=== PATIENT | female | born 1950 | race Caucasian/White ===

== ENCOUNTER 2017-07-10 16:12 | Emergency (ER) | payer OTHER ==
[~2017-07-10] VITALS: Ht 165.1 cm; Wt 80.3 kg
[~2017-07-10 16:12] MED LIST: ASPIR-LOW81 MG PO; CAL MAG ZINC +1 EACH PO; CRESTOR10 MG PO; FISH OIL300 MG PO; GABAPENTIN300 MG PO; GLIPIZIDE10 MG PO; GLUCOPHAGE500 MG PO; LOSARTAN POTASS25 MG PO; METOPROLOL SUCC25 MG PO; ONGLYZA5 MG PO; PROVENTIL HFA6.7 GM INH; REQUIP2 MG PO; TESSALON PERLE100 MG PO; TRAZODONE HCL100 MG PO; VITAFOL-OB+DHA1 EACH PO
[2017-07-10] MEDS ORDERED: NEURONTIN800 MG PO (19:23)
[2017-07-10] MEDS ORDERED: METFORMIN HCL500 M2 PO (19:24)
[2017-07-10] MEDS ORDERED: VICTOZA 2-0.6 MG/0.1 SUB-Q (19:25)
[2017-07-10] MEDS ORDERED: NORCO 5-325 TA1 EACH PO (21:35)
[2017-07-10] MEDS ORDERED: CRUTCH1 EACH MISC (21:36)
== END 2017-07-10 21:48 | disposition home or self-care (01) ==
LOC: ED 16:12
DX: S70.01XA Contusion of right hip, initial encounter (principal); E11.9 Type 2 diabetes mellitus without complications; F17.200 Nicotine dependence, unspecified, uncomplicated; Z88.2 Allergy status to sulfonamides; Z88.1 Allergy status to other antibiotic agents; Z79.84 Long term (current) use of oral hypoglycemic drugs; Z79.82 Long term (current) use of aspirin; Z79.899 Other long term (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; W01.10XA Fall on same level from slipping, tripping and stumbling with subsequent striking against unspecified object, initial encounter
CPT/HCPCS: 73502; 99283

== ENCOUNTER 2017-09-18 07:14 | Day surgery (SDC) | payer OTHER ==
[~2017-09-18] VITALS: Ht 167.6 cm; Wt 82.5 kg
[~2017-09-18 07:14] MED LIST changes: +CRUTCH1 EACH MISC; +METFORMIN HCL500 M2 PO; +NEURONTIN800 MG PO; +NORCO 5-325 TA1 EACH PO; +VICTOZA 2-0.6 MG/0.1 SUB-Q
[2017-09-18] MEDS ORDERED: LOSARTAN-HCTZ1 EAC1 (07:37)
[2017-09-18] MEDS ORDERED: DICLOFENAC SODI25 MG PO (07:38)
[2017-09-18] MEDS ORDERED: MSM-GLUCOSAMIN1 EACH PO (07:38)
[2017-09-18] MEDS ORDERED: VITAMIN B122500 MCG PO (07:39)
[2017-09-18] MEDS ORDERED: OMEPRAZOLE20 MG PO (07:40)
[2017-09-18] MEDS ORDERED: PROAIR HFA8.5 GM INH (07:40)
--- NOTE | 2017-09-18 08:55 | NUR ---
09/18/17 0855 Carolyn Issa 0842 PT ARRIVED TO PACU ON 3L NC. RESP EVEN AND UNLABORED. PT MAINTAINING AIRWAY. CBG 200. 0851 PT PASSING GAS AND SLEEPING. PT OPENS HER EYES TO STIMULI THEN RIGHT BACK TO SLEEP. 0854 O2 REMOVED O2 SAT 99%. PT REORIENTED TO PACU. PT BACK TO SLEEP.
--- NOTE | 2017-09-18 09:33 | NUR ---
ICED WATER, PUDDING, CRACKERS AND JELLO GIVEN. CALL LIGHT W/IN REACH.
--- NOTE | 2017-09-18 12:37 | NUR ---
LE 1130: PT UP TO BR AND AMBULATES WELL. PT REQ LUNCH. LUNCH ORDERED FROM DIETARY. PT DRESSES SELF AND TOLERATES THAT WELL. PT AWAITING HER RIDE'S ARRIVAL.
--- NOTE | 2017-09-18 12:38 | NUR ---
PT TRANSFERS SELF TO AND TO PERSONAL VEHICLE WELL AND IS DC.
--- NOTE | 2017-09-18 18:36 | OR ---
[facility] [address] [place], [place] [address] Signed DATE OF OPERATION: 09/18/2017 SURGEON: Riley Quiñonez MD PREOPERATIVE DIAGNOSIS: Guaiac-positive stool. POSTOPERATIVE DIAGNOSES: 1. Nkxyyanu-iw-rqboow saini diverticulosis. 2. Moderate internal and external hemorrhoids. PROCEDURE PERFORMED: Colonoscopy without biopsy. ESTIMATED BLOOD LOSS: None. INDICATIONS FOR PROCEDURE: Sharyn is a 66-year-old female, who had been placed on extended release metformin. She had diarrhea and fecal urgency and then some melena. She has been switched over to immediate release metformin and things have markedly improved. However, she remains guaiac positive. She has never had a previous colonoscopy. There is no family history of colon cancer or polyps. Her primary care provider asked her to see me with respect to the above. In the office, I gave Sharyn a pamphlet on colonoscopy. We looked at that together along with the risks including, but not limited to gas bloating, crampy abdominal pain, bleeding, perforation, requiring surgery, and missed diagnosis. We also discussed the need for IV conscious sedation. She had expressed understanding and wished to proceed. PROCEDURE NOTE: Sharyn was taken into our endoscopy suite and placed in the left lateral decubitus position. She was given divided doses of 5 mg of Versed and 150 mcg of fentanyl. A digital rectal exam was performed and she does have moderate circumferential external hemorrhoids. She had good sphincter tone. The adult colonoscope was then introduced and advanced all around into the cecum under direct visualization of camera. It took some extra sedation and abdominal compression in order to advance the scope, there is slight of build and her colon is small in diameter and she had ouhurytv-xx-biarsk saini diverticulosis. All this taken together, it took the extra sedation and abdominal compression. The cecum was easily visualized along with the ileocecal valve. The scope was then slowly withdrawn. We saw no other pathology in the colon or rectum. Upon Electronically Signed By: RILEY QUIÑONEZ MD 09/18/17 1836 PATIENT NAME: SHARYN HAND OPERATIVE REPORT DATE OF : 48 REPORT #: [id number] PHYSICIAN: RILEY QUIÑONEZ MD PCP: SHARYN SNYDER REPORT IS CONFIDENTIAL AND NOT TO BE RELEASED WITHOUT AUTHORIZATION [facility] [address] [place] [id number] Signed retroflexion of the scope, she has mvbynpw-rq-dhnwupdg internal hemorrhoids. After this, the gas was suctioned out, and the colonoscope removed. Sharyn tolerated the procedure quite well. RECOMMENDATIONS: Sharyn can follow up in 10 years for repeat colonoscopy, if her health holds up. If she continues to have guaiac-positive stool, she might consider an upper endoscopy as well. I am more than happy to help her in that regard. MD TYSON Ford/KASSYL /[id number] cc: Sharyn Snyder Copies: SHARYN SNYDER ~ Electronically Signed By: RILEY QUIÑONEZ MD 09/18/17 1836 PATIENT NAME: SHARYN HAND OPERATIVE REPORT DATE OF : 48 REPORT #: [id number] PHYSICIAN: RILEY QUIÑONEZ MD PCP: SHARYN SNYDER REPORT IS CONFIDENTIAL AND NOT TO BE RELEASED WITHOUT AUTHORIZATION
== END 2017-09-18 12:35 | disposition home or self-care (01) ==
LOC: DS 07:14 → OPS 07:14 → DS 08:15 → OPS 12:35
PROVIDERS: Colon & Rectal Surgery
PROC: 0DJD8ZZ Inspection of Lower Intestinal Tract, Via Natural or Artificial Opening Endoscopic (ICD-10-PCS; principal; 2017-09-18 08:15)
DX: K64.8 Other hemorrhoids (principal); K64.4 Residual hemorrhoidal skin tags; K57.30 Diverticulosis of large intestine without perforation or abscess without bleeding; I10 Essential (primary) hypertension; J44.9 Chronic obstructive pulmonary disease, unspecified; E78.5 Hyperlipidemia, unspecified; E66.9 Obesity, unspecified; F32.9 Major depressive disorder, single episode, unspecified; M19.90 Unspecified osteoarthritis, unspecified site; E11.40 Type 2 diabetes mellitus with diabetic neuropathy, unspecified; F17.210 Nicotine dependence, cigarettes, uncomplicated; Z88.2 Allergy status to sulfonamides; Z88.1 Allergy status to other antibiotic agents; Z79.82 Long term (current) use of aspirin; Z79.84 Long term (current) use of oral hypoglycemic drugs; Z79.899 Other long term (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; Z79.1 Long term (current) use of non-steroidal anti-inflammatories (NSAID); Z68.29 Body mass index [BMI] 29.0-29.9, adult
CPT/HCPCS: 99153; G0500; J2250; J3010; J7120

== ENCOUNTER 2017-12-02 01:44 | Emergency (ER) | payer OTHER ==
[~2017-12-02] VITALS: Ht 167.6 cm; Wt 81.7 kg
[~2017-12-02 01:44] MED LIST changes: +DICLOFENAC SODI25 MG PO; +LOSARTAN-HCTZ1 EAC1; +MSM-GLUCOSAMIN1 EACH PO; +OMEPRAZOLE20 MG PO; +PROAIR HFA8.5 GM INH; +VITAMIN B122500 MCG PO
[2017-12-02] MEDS ORDERED: NORCO 5-325 TA1 EACH PO (02:35)
== END 2017-12-02 02:48 | disposition home or self-care (01) ==
LOC: ED 01:44
DX: S20.212A Contusion of left front wall of thorax, initial encounter (principal); W22.8XXA Striking against or struck by other objects, initial encounter; E11.9 Type 2 diabetes mellitus without complications; F17.200 Nicotine dependence, unspecified, uncomplicated; Z88.2 Allergy status to sulfonamides; Z88.1 Allergy status to other antibiotic agents; Z79.899 Other long term (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; Z79.82 Long term (current) use of aspirin; Z79.84 Long term (current) use of oral hypoglycemic drugs
CPT/HCPCS: 71101; 99283

== ENCOUNTER → 2018-05-25 | Emergency (ER) | payer OTHER ==
[~2018-05-25] VITALS: Ht 167.6 cm; Wt 83.1 kg
[~2018-05-25] MED LIST changes: +AMLODIPINE-OLM1 EAC1; +FUROSEMIDE20 MG PO; +HYDROCHLOROTHIA25 MG PO
--- NOTE | 2018-05-25 07:17 | EKG ---
[facility] [address] [facility] [place], [place] [address] Signed Normal sinus rhythm Rightward axis Possible Anterior infarct , age undetermined Abnormal ECG No previous ECGs available Confirmed by FLORI FLORES MD ([id number]) on 05/25/2018 7:17:26 AM Electronically Signed By: FLORI FLORES MD 05/25/18 0717 PATIENT NAME: SHARYN HAND Electrocardiogram DATE OF : 48 PHYSICIAN: FLORI FLORES MD REPORT #: [id number] REPORT IS CONFIDENTIAL AND NOT TO BE RELEASED WITHOUT AUTHORIZATION
== END | disposition home or self-care (01) ==
LOC: ED 02:54
DX: I50.9 Heart failure, unspecified (principal); J90 Pleural effusion, not elsewhere classified; E11.22 Type 2 diabetes mellitus with diabetic chronic kidney disease; N18.9 Chronic kidney disease, unspecified; F17.200 Nicotine dependence, unspecified, uncomplicated; Z88.2 Allergy status to sulfonamides; Z79.899 Other long term (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; Z79.82 Long term (current) use of aspirin
CPT/HCPCS: 71045; 80053; 81001; 83880; 84484; 85025; 93005; 93010; 96374; 99285-25

== ENCOUNTER 2018-06-22 18:18 | Emergency (ER) | payer OTHER ==
[~2018-06-22] VITALS: Ht 167.6 cm; Wt 83.1 kg
[~2018-06-22 18:18] MED LIST changes: -HYDROCHLOROTHIA25 MG PO
--- OUTSIDE RECORDS SUMMARY | 2018-06-22 18:20 | XMS ---
PreManage Notification: SHARYN HAND Security Pulmonology Technician Events No recent Security Events currently on file CRITERIA MET - [facility] - 2 Visits in 30 Days CARE PROVIDERS There are no care providers on record at this time. Godfrey has no Care Guidelines for this patient. Irina VISIT COUNT (12 MO.) [address] [facility] TOTAL 4 NOTE: Visits indicate total known visits. ED/C VISIT TRACKING (12 MO.) 06/22/2018 18:19 [facility] [place] TYPE: Emergency COMPLAINT: - DIZZINESS 05/25/2018 02:54 [facility] [place] TYPE: Emergency COMPLAINT: - CHEST CONGESTION/PAIN DIAGNOSES: - Chronic kidney disease, unspecified - petroleum terminal plant operator (current) use of aspirin - Type 2 diabetes mellitus with diabetic chronic kidney disease - Allergy status to sulfonamides status - Shortness of breath - Heart failure, unspecified - Other long term care pharmacist (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 - Nicotine dependence, unspecified, uncomplicated - Pleural effusion, not elsewhere classified 12/02/2017 01:44 [facility] [place] TYPE: Emergency COMPLAINT: - LT SIDE RIB PAIN DIAGNOSES: - Striking against or struck by other objects, initial encounter - Type 2 diabetes mellitus without complications - Other long term care pharmacist (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 - group home (current) use of aspirin - COMPUTER LAB PARA PROFESSIONAL (CURRENT) USE OF ORAL HYPOGLYCEMIC DRUGS - group home (current) use of oral hypoglycemic drugs - Pleurodynia - Allergy status to sulfonamides status - Nicotine dependence, unspecified, uncomplicated - Allergy status to other antibiotic agents status - Contusion of left front wall of thorax, initial encounter 07/10/2017 16:13 [facility] [place] TYPE: Emergency COMPLAINT: - R HIP PAIN/FALL DIAGNOSES: - Allergy status to sulfonamides status - Type 2 diabetes mellitus without complications - Allergy status to other antibiotic agents status - Fall on same level from slipping, tripping and stumbling with subsequent striking against unspecified object, initial encounter - group home (current) use of oral hypoglycemic drugs - petroleum terminal plant 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
[2018-06-22] MEDS ORDERED: HYDROCHLOROTHIA25 MG PO (18:46)
--- NOTE | 2018-06-23 07:46 | EKG ---
[facility] [address] [place] [address] Signed Sinus rhythm with premature atrial complexes Otherwise normal ECG When compared with ECG of 25-MAY-2018 03:01, premature atrial complexes are now present Confirmed by FLORI FLORES MD ([id number]) on 06/23/2018 7:46:06 AM Electronically Signed By: FLORI FLORES MD 06/23/18 0746 PATIENT NAME: DENNISE DAIGLESHARYN Electrocardiogram DATE OF : 48 PHYSICIAN: FLORI FLORES MD REPORT #: [id number] REPORT IS CONFIDENTIAL AND NOT TO BE RELEASED WITHOUT AUTHORIZATION
== END 2018-06-22 21:50 | disposition home or self-care (01) ==
LOC: ED 18:18
DX: R41.82 Altered mental status, unspecified (principal); E11.9 Type 2 diabetes mellitus without complications; F17.200 Nicotine dependence, unspecified, uncomplicated; Z88.2 Allergy status to sulfonamides; Z88.1 Allergy status to other antibiotic agents; Z79.899 Other long term (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; Z79.82 Long term (current) use of aspirin
CPT/HCPCS: 70450; 71045; 80053; 84484; 85025; 93005; 93010; 99285-25; J7030

== ENCOUNTER 2018-09-09 16:20 | Emergency (ER) | payer OTHER ==
[~2018-09-09] VITALS: Ht 167.6 cm; Wt 81.7 kg
--- OUTSIDE RECORDS SUMMARY | ~2018-09-09 | XMS | Clinical Summary ---
Demographics + + + | Address | [address] [facility] [address] | | | [place] [address] | + + + | Home Phone [...] + + + | Author | [facility] | | | and [place] | + + + | Organization | [facility] | | | and [place] | + + + | Address | Unknown | + + + | Phone | Unavailable | + + + Support + + +---------+ + | Name | Relationship | Address | Phone | + + +---------+ + | None,Provided | ECON | Unknown | | + + +---------+ + Care Team Providers + +------+ + | Care Manager Trade Marketing Name | Role | Phone | + +------+ + | Benny James MD | PP | | + +------+ + Allergies Not on File Medications Not on file Active Problems Not on file Social History + +-------+ +--------+------+ | Tobacco [...] recent travel history available. | + + Plan of Treatment + + + + + | Health Maintenance | Due Date | Last Done | Comments | + + + + + | Vaccine: | | | | | Dtap/Tdap/Td (1 - | 9 | | | | Tdap) | | | | + + + + + | Vaccine: Zoster (1 | | | | | of 2) | 0 | | | + + + + + | Vaccine: | | | | | Pneumococcal 65+ | 5 | | | | Low/Medium Risk (1 | | | | | of 2 - PCV13) | | | | + + + + + | Vaccine: Influenza | | | | | (Season Ended) | 9 | | | + + + + + Results Not on filefrom Last 3 Months Insurance + +--------+ +--------+-------+---------+--------+ | Payer | Benefi | Subscriber | Effect | Phone | Address | Type | | | t Plan | ID | ira | | | | | | / | | Dates | | | | | | Group | | | | | | + +--------+ +--------+-------+---------+--------+ | [employer] | [employer] | [id number] | | | | Indemn | | | NS | | 016-Pr | | | ity | | | CHOICE | | esent | | | | [...] | | [place] | | | 7 ([place]) | [phone] | + +--------+ +--------+ + +"
--- OUTSIDE RECORDS SUMMARY | ~2018-09-09 | XMS | Clinical Summary ---
Demographics + + + | Address | [address] [facility] [address] | | | [place] [address] | + + + | Home Phone [...] Team Providers + +------+ + | Care Bander And Cellophaner Helper Machine Name | Role | Phone | [...] +--------+-------+---------+--------+ | [employer] | [place] | [id number] | | | | Indemn | | [...] | | [place] | | | 7 ([place]) | [phone] | + +--------+ +--------+ + +"
[~2018-09-09 16:20] MED LIST changes: +HYDROCHLOROTHIA25 MG PO
[2018-09-09] MEDS ORDERED: CYCLOBENZAPRINE10 MG PO (16:36)
[2018-09-09] MEDS ORDERED: ZYRTEC10 MG PO (16:37)
[2018-09-09] MEDS ORDERED: LASIX20 MG PO (19:28)
--- NOTE | 2018-09-10 16:33 | EKG ---
[facility] [address] [facility] [place] [address] Signed Normal sinus rhythm Rightward axis Borderline ECG When compared with ECG of 22-JUN-2018 18:24, premature atrial complexes are no longer present Confirmed by TIRSO ROCK DO ([id number]) on 09/10/2018 4:33:28 PM Electronically Signed By: TIRSO ROCK DO 09/10/18 1633 PATIENT NAME: DENNISE DAIGLESHARYN Electrocardiogram DATE OF : 48 PHYSICIAN: TIRSO ROCK DO REPORT #: [id number] REPORT IS CONFIDENTIAL AND NOT TO BE RELEASED WITHOUT AUTHORIZATION
== END 2018-09-09 19:45 | disposition home or self-care (01) ==
LOC: ED 16:20
DX: I50.9 Heart failure, unspecified (principal); R06.00 Dyspnea, unspecified; E11.9 Type 2 diabetes mellitus without complications; F17.200 Nicotine dependence, unspecified, uncomplicated; Z88.2 Allergy status to sulfonamides; Z88.8 Allergy status to other drugs, medicaments and biological substances; Z88.1 Allergy status to other antibiotic agents; Z79.899 Other long term (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; Z79.82 Long term (current) use of aspirin
CPT/HCPCS: 71046; 80053; 83880; 84484; 85025; 93005; 93010; 96374; 99284-25; 99406

== ENCOUNTER 2019-06-30 16:00 | Emergency (ER) | payer OTHER ==
[~2019-06-30] VITALS: Ht 167.6 cm; Wt 81.7 kg
[~2019-06-30 16:00] MED LIST changes: +CYCLOBENZAPRINE10 MG PO; +LASIX20 MG PO; +ZYRTEC10 MG PO
[2019-06-30] MEDS ORDERED: KEFLEX500 MG PO (17:32)
[2019-06-30] MEDS ORDERED: PERCOCET 5-3251 EACH PO (17:32)
== END 2019-06-30 18:07 | disposition home or self-care (01) ==
LOC: ED 16:00
DX: S53.401A Unspecified sprain of right elbow, initial encounter (principal); M70.31 Other bursitis of elbow, right elbow; X58.XXXA Exposure to other specified factors, initial encounter; E11.9 Type 2 diabetes mellitus without complications; F17.200 Nicotine dependence, unspecified, uncomplicated; Z88.2 Allergy status to sulfonamides; Z88.1 Allergy status to other antibiotic agents; Z88.8 Allergy status to other drugs, medicaments and biological substances; Z79.899 Other long term (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; Z79.82 Long term (current) use of aspirin
CPT/HCPCS: 73080; 99283; A9270

== ENCOUNTER 2019-07-10 15:32 | Emergency (ER) | payer OTHER ==
[~2019-07-10] VITALS: Ht 167.6 cm; Wt 81.7 kg
[~2019-07-10 15:32] MED LIST changes: +KEFLEX500 MG PO; +PERCOCET 5-3251 EACH PO
--- OUTSIDE RECORDS SUMMARY | 2019-07-10 15:36 | XMS ---
PreManage Notification: SHARYN HAND Security Inbound Sales Manager Events No recent Security Events currently on file CRITERIA MET - [facility] - 2 Visits in 30 Days CARE PROVIDERS SNYDERSHARYN BUTLER ANN Nurse Practitioner: 06/23/2018-Current PHONE: [phone] Godfrey has no Care Guidelines for this patient. Irina VISIT COUNT (12 MO.) [address] [facility] TOTAL 3 NOTE: Visits indicate total known visits. ED/UCC VISIT TRACKING (12 MO.) 07/10/2019 15:33 [facility] [place] TYPE: Emergency COMPLAINT: - HURT BOTH FEET FALLING 06/30/2019 16:01 [facility] [place] TYPE: Emergency COMPLAINT: - RIGHT ELBOW PAIN DIAGNOSES: - Allergy status to oth drug/meds/biol subst status - Nicotine dependence, unspecified, uncomplicated - Pain in right elbow - Allergy status to sulfonamides status - Exposure to other specified factors, initial encounter - moth exterminator (current) use of aspirin - 1 Type 2 diabetes mellitus without complications - Allergy status to other antibiotic agents status - Other termite helper (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 - Other bursitis of elbow, right elbow - Unspecified sprain of right elbow, initial encounter 09/09/2018 16:21 [facility] [place] TYPE: Emergency COMPLAINT: - SOB DIAGNOSES: - Cough - Nicotine dependence, unspecified, uncomplicated - 1 Type 2 diabetes mellitus without complications - Allergy status to sulfonamides status - Allergy status to other antibiotic agents status - [facility] (current) use of aspirin - Heart failure, unspecified - Dyspnea, unspecified - Allergy status to oth drug/meds/biol subst status - Other termite helper (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 INPATIENT VISIT TRACKING (12 MO.) No inpatient visits to display in this time frame [email or web address]
== END 2019-07-10 17:19 | disposition home or self-care (01) ==
LOC: ED 15:32
DX: S93.602A Unspecified sprain of left foot, initial encounter (principal); S93.601A Unspecified sprain of right foot, initial encounter; S93.402A Sprain of unspecified ligament of left ankle, initial encounter; S93.401A Sprain of unspecified ligament of right ankle, initial encounter; E11.9 Type 2 diabetes mellitus without complications; I10 Essential (primary) hypertension; F17.200 Nicotine dependence, unspecified, uncomplicated; X58.XXXA Exposure to other specified factors, initial encounter
CPT/HCPCS: 73610; 73630; 99283-25

== ENCOUNTER 2019-10-05 16:43 | Emergency (ER) | payer OTHER ==
[~2019-10-05] VITALS: Ht 167.6 cm; Wt 87.6 kg
--- OUTSIDE RECORDS SUMMARY | ~2019-10-05 | XMS | Encounter Summary ---
Demographics + + + | Address | [address] [facility] [address] | | | [place] [address] | + + + | Home Phone | | + + + | Preferred Language | Unknown | + + + | Marital Status | Unknown | + + + | Latter-Day Affiliation | Unknown | + + + | Race | Unknown | + + + | Ethnic Group | Unknown | + + + Author + + + | Author | [facility] | | | and [place] | + + + | Organization | [facility] | | | and [place] | + + + | Address | Unknown | + + + | Phone | Unavailable | + + + Support + + +---------+ + | Name | Relationship | Address | Phone | + + +---------+ + | Provided None | ECON | Unknown | | + + +---------+ + Care Team Providers + +------+ + | Care Sampler Tester Name | Role | Phone | + +------+ + | Lizet Oliva | PCP | | + +------+ + Encounter Details +--------+ + + + + | Date | Type | Department | Care Team | Description | +--------+ + + + + | 09/09/ | Lab | [facility] | Oliva, Rachel | Age-related | | 2018 | Requisition | [facility] | [address] 76 | osteoporosis with | | | | [address] | [place] | current pathological | | | | [place] | [place] | fracture of right | | | | [address] | [phone] | forearm | | | | [phone] | [phone] | | | | | | | | +--------+ + + + + Social History + +-------+ +--------+------+ | Tobacco Use | Types | Packs/Day | Years | Date | | | | | Used | | + +-------+ +--------+------+ | Never Assessed | | | | | + +-------+ +--------+------+ + + + | Sex Assigned at | Date Recorded | | | | + + + | Not on file | | + + + + + + + | Job Start Date | Occupation | Industry | + + + + | Not on file | Not on file | Not on file | + + + + + + + + | Travel History | Travel Start | Travel End | + + + + + + | No recent travel history available. | + + documented as of this encounter Plan of Treatment +--------+---------+ + + + | Date | Type | Specialty | Care Team | Description | +--------+---------+ + + + | 11/07/ | Office | Nephrology | Matty Bingham MD | | | 2020 | Visit | | [address] | | | | | | [address] [place], [place] | | | | | | [address] | | | | | | | | +--------+---------+ + + + documented as of this encounter Procedures + +--------+ + + + | Procedure Name | Priori | Date/Time | Associated Diagnosis | Comments | | | ty | | | | + +--------+ + + + | D-DIMER | STAT | 09/09/2017 | Age-related | Results for this | | | | 12:45 PM | osteoporosis with | procedure are in the | | | | PDT | current pathological | results section. | | | | | fracture of right | | | | | | forearm | | + +--------+ + + + documented in this encounter Results D-Dimer (09/09/2017 12:45 PM PDT) + + + + + + | Component | Value | Ref Range | Performed | Pathologist | | | | | At | Signature | + + + + + + | D-Dimer | Comment: Test ordered | <=0.50 ug/ml | [facility] | | | Quantitativ | under wrong submitter. | | [facility] | | | e | This quantitative | | MEDICAL | | | | D-Dimer assay has been | | CENTER - | | | | evaluated for screening | | LABORATORY | | | | for venous thrombotic | | | | | | disease, and may be | | | | | | useful in ruling out, | | | | | | but not ruling in | | | | | | disease. Values less | | | | | | than 0.50 ug/mL FEU | | | | | | (Fibrinogen Equivalent | | | | | | Units) have a negative | | | | | | predictive value of | | | | | | approximately 95% for | | | | | | ruling out large | | | | | | pulmonary emboli or | | | | | | proximal deep vein | | | | | | thrombosis. Distal DVT | | | | | | are not excluded. An | | | | | | elevated D-dimer can be | | | | | | present in patients with | | | | | | liver disease, | | | | | | , eclampsia, | | | | | | heart disease and some | | | | | | cancers among other | | | | | | conditions. The presence | | | | | | of rheumatoid factor at | | | | | | a level >50 IU/mL may | | | | | | falsely elevate the | | | | | | determined D-dimer | | | | | | levels.This is a | | | | | | corrected result. | | | | | | Previous result was 0.69 | | | | | | ug/ml on 09/09/2017 at | | | | | | 1400 PDT | | | | + + + + + + + + | Specimen | + + | Blood | + + + + + | Narrative | Performed At | + + + | Test ordered under wrong submitter | [facility] | | | [facility] | | | [facility] | | | - LABORATORY | + + + + + + + + | Performing | Address | City/State/Zipcode | Phone Number | | Organization | | | | + + + + + | [facility] | [address] | [place] | [phone] | | [facility] | | [address] | | | - LABORATORY | | | | + + + + + documented in this encounter Visit Diagnoses + + | Diagnosis | + + | Age-related osteoporosis with current pathological fracture of right forearm Senile | | osteoporosis | + + documented in this encounter"
--- OUTSIDE RECORDS SUMMARY | ~2019-10-05 | XMS | Encounter Summary ---
Demographics + + + | Address | [address] [facility] [address] | | | [place] [address] | + + + | Home Phone | | + + + | Preferred Language | Unknown | + + + | Marital Status | Unknown | + + + | Anglican Affiliation | Unknown | + + + | Race | Unknown | + + + | Ethnic Group | Unknown | + + + Author + + + | Author | [facility] | | | and [place] | + + + | Organization | [facility] | | [...] Team Providers + +------+ + | Care Breast Splitter Name | Role | Phone | + +------+ + | Lizet Oliva | PCP | | + +------+ + Reason for Visit +--------+ + | Reason | Comments | +--------+ + | Other | RBC ua result | +--------+ + Encounter Details +--------+ + + + + | Date | Type | Department | Care Team | Description | +--------+ + + + + | 08/03/ | Telephone | [facility] | Matty Bingham MD | Other (RBC ua | | 2020 | | NEPHROLOGY [place] | [address] [place] | result) | | | | [address] | [address] [place], [place] | | | | | [address] [place] [address] | [address] | | | | | [place], [place] | | | | | | [address] | | | | | | [phone] | | | +--------+ + + + [...] 2020 | Visit | | [address] [facility] | | | | | | [facility] | | | | | | [address] | | | | | | | | +--------+---------+ + + + documented as of this encounter Visit Diagnoses Not on filedocumented in this encounter"
--- OUTSIDE RECORDS SUMMARY | ~2019-10-05 | XMS | Encounter Summary ---
Demographics + + + | Address | [address] [facility] [address] | | | [place] [address] | + + + | Home Phone | | + + + | Preferred Language | Unknown | + + + | Marital Status | Unknown | + + + | Gnosticist Affiliation | Unknown | + + + | Race | Unknown | + + + | Ethnic Group | Unknown | + + + Author + + + | Author | [facility] | | | and [place] | + + + | Organization | [facility] | | [...] Team Providers + +------+ + | Care Home Care Rn Name | Role | Phone | + +------+ + | Lizet Oliva | PCP | | + +------+ + Encounter Details +--------+ + + + + | Date | Type | Department | Care Team | Description | +--------+ + + + + | 09/09/ | Lab | [facility] | Oliva, Rachel | Age-related | | 2018 | Requisition | [facility] | [address] 76 | osteoporosis with | | | | [address] | [place] | current pathological | | | | [place] | [place] | fracture of right | | | | [address] | [address] | forearm | | | | [phone] | [phone] | | | | | | | [...] 2020 | Visit | | [address] [facility] | | | | | | [address] [place], [place] | | | | | | [address] | | | | | | | [...] Quantitativ | under wrong submitter. | | [facility] | | | e | [...] wrong submitter | [facility] | | | [facility] | | | [facility] | | | - LABORATORY | + + + + + + + + | Performing | Address | City/State/Zipcode | Phone Number | | Organization | | | | + + + + + | [facility] | [address] | [place] | [phone] | | [facility] | | [address] | | | - LABORATORY | | | | + + + + + documented in this encounter Visit Diagnoses + + | Diagnosis | + + | Age-related osteoporosis with current pathological fracture of right forearm Senile | | osteoporosis | + + documented in this encounter"
--- OUTSIDE RECORDS SUMMARY | ~2019-10-05 | XMS | Encounter Summary ---
Demographics + + + | Address | [address] [facility] [address] | | | [place] [address] | + + + | Home Phone | | + + + | Preferred Language | Unknown | + + + | Marital Status | Unknown | + + + | Congregation Affiliation | Unknown | + + + | Race | Unknown | + + + | Ethnic Group | Unknown | + + + Author + + + | Author | [facility] | | | and [place] | + + + | Organization | [facility] | | | and [...] Team Providers + +------+ + | Care Lieutenant Fire Fighter Name | Role | Phone | + +------+ + | Lizet Oliva | PCP | | + +------+ + Reason for Visit Evaluate & Treat (Routine) + +--------+ + + + + | Status | Reason | Specialty | Diagnoses / | Referred By | Referred To | | | | | Procedures | Contact | Contact | + +--------+ + + + + | Authorized | | Nephrology | Diagnoses | [facility] | Dez | | | | | Chronic | [facility] | Nephrology | | | | | kidney | [facility] | [place] | | | | | disease, | [address] | [address] | | | | | stage 4 | [address] [place] [address] | | | | | (severe) | [address] | [place] | | | | | (HCC) | [place] | [address] | | | | | | [address] | Phone: | | | | | | Phone: | [phone] | | | | | | [phone] | Fax: | | | | | | Fax: | [phone] | | | | | | [phone] | | + +--------+ + + + + Encounter Details +--------+---------+ + + + | Date | Type | Department | Care Team | Description | +--------+---------+ + + + | 08/01/ | Office | [facility] | Matty Bingham MD | CKD (chronic kidney | | 2020 | Visit | NEPHROLOGY [place] | [address] [place] | disease) stage 4, | | | | [address] | [address] [place], [place] | GFR 15-29 ml/min | | | | [address] [place] [address] | [id number] | (HCC) (Primary Dx); | | | | [place], [place] | | Type 2 diabetes | | | | [address] | | mellitus with | | | | [phone] | | diabetic | | | | | | nephropathy, 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 | | | | | | use of insulin | | | | | | ([facility]); Essential | | | | | | hypertension; | | | | | | Tobacco abuse; | | | | | | 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; | | | | | | Persistent | | | | | | proteinuria | +--------+---------+ + + + Social History + +--------+ [...] + + + | Blood Pressure | 94/48 | 08/02/2019 11:50 AM | | | | | PDT | | + + + + + | Pulse | 76 | 08/02/2019 11:50 AM | | | | | PDT | | + + + + + | Temperature | - | - | | + + + + + | Respiratory Rate | - | - | | + + + + + | Oxygen Saturation | - | - | | + + + + + | Inhaled Oxygen | - | - | | | Concentration | | | | + + + + + | Weight | 83.4 kg (183 lb 12.8 | 08/02/2019 11:50 AM | | | | oz) | PDT | | + + + + + | Height | 167.6 cm (5' 6") | 08/02/2019 11:50 AM | | | | | PDT | | + + + + + | Body Mass Index | 29.67 | 08/02/2019 11:50 AM | | | | | PDT | | + + + + + documented in this encounter Patient Instructions Patient Instructions Matty Bingham MD - 08/02/2019 11:40 AM PDTDiscussions/Recommendations : I discussed today with Ms. Mcneil the meaning of her CKD and the interaction of that with her diabetes & hypertension. I stressed the importance of keeping her BG & BP controlled and avoiding getting dehydra edgar if we are to have a chance at helping preserve her renal function. She showed good unde rstanding. I gave her instructions on how to chart her blood pressure in the appropriate manner at home. She is to call us if they fall outside of the optimal provided range. She will bring her sphygmomanometer for validation once a year. She will strictly abide by a low salt diet. She will avoid all kinds of NSAIDs for analgesia. Also: I decreased her Amlodipine to 5 mg every night. I increased her Losartan to 50 mg twice a day. I sent her for a repeat BMP + SPIE, SFLC in 1 week. She will report back to me her home BP readings in 1 week. At that time, I will decide w hether any change to his vasoactive regimen is warranted. I strongly advised her to stop smoking CRISPIN; I explained the benefits of doing that. She voiced good understanding. I sent her for a renal & bladder U/S soon. She F/U's with the Urology team for her microscopic hematuria. She will F/U with your office regularly. She will have a RFP, CBC, intact PTH, uric acid, urinalysis, Urine total pdvcwpo-ac-shut tinine ratio before she comes back in 3 months. documented in this encounter Progress Notes Matty Bingham MD - 08/02/2019 11:40 AM PDT Patient Active Problem List Diagnosis Date Noted POA Diabetes mellitus 07/28/2019 Unknown Hypertension 07/28/2019 Unknown Nicotine dependence 07/28/2019 Unknown CKD (chronic kidney disease) stage 4, GFR 15-29 ml/min 07/28/2019 Unknown Dear Lizet Godinez: Thank you for the opportunity to see Ms. Mcneil in consult today. As you are famil iar with her case, I will not state her past history in detail. Briefly, she is a 68 y.o. f emale patient with past history as delineated above. She is here to be evaluated for her CK D & its associated complications. Her sCr & eGFR were 2.1 & 24 in 02/11; 2 & 25 in 05/13. In 05/2018, her ACR was 2,419 mg/g. The patient has history of hypertension since she was 53, Diabetes Mellitus since her early 60's. Her BG and BP control has been reportedly inadequate. She has history of exposure to NSAIDs: Ibuprofen 400 mg a day for several months in mid 2018. She denies any recurrent neph rolithiasis or pyelonephritis. she tells me that She's had no history of urinary retention, gross hematuria or dysuria. She has mild stress incontinence symptoms. +ve chronic symptoms of UTI. She has 3 or 4 nightly nocturia. No history of passing kidney stones. She has no f oamy urine either. Her baseline Creatinine is 2.1 from 04/2019. There is no family history o f renal genetic diseases such as PKD. She says that she feels 'good ' today. She denies any blurred vision tinnitus, headache, f ever, chills, or cough. No nausea, vomiting, abdominal pain, diarrhea, melena, or hematoche rudi. No chest pain, palpitation, loss of consciousness, orthopnea, paroxysmal nocturnal dys pnea, or leg edema. She tells me she's been losing balance & falling more frequently in the last 2 years + postural dizziness; she F/U's on those with your office. The following portions of the patient's history were reviewed and updated as appropriate: a llergies, current medications, past medical history, past social history, past surgical hist ory, family history and problem list. I also reviewed with her the records received from you r office; these were very informative. As in History of Present Illness & in Assessment. All the twelve systems were reviewed and were otherwise negative. Active comorbid conditions include: - hypertension; essential; with renal disease; with CKD stage 1-4 - renal disease; proteinuria; CKD; Stage 3 - endocrine problem - diabetes; type 2; using insulin; uncontrolled (Hgb A1C >= 6.5); with complications - Drugs/Alcohol/Tobacco - tobacco use Past Medical History: Diagnosis Date CKD (chronic kidney disease) stage 4, GFR 15-29 ml/min ([facility]) 07/28/2019 Diabetes mellitus ([facility]) 07/28/2019 Hypertension 07/28/2019 Nicotine dependence 07/28/2019 No past surgical history on file. No family history on file. Social History Socioeconomic History Marital status: Unknown Spouse name: Not on file Number of children: Not on file Years of education: Not on file Highest education level: Not on file Occupational History Not on file Social Needs Financial resource strain: Not on file Food insecurity: Worry: Not on file Inability: Not on file Transportation needs: Medical: Not on file Non-medical: Not on file Tobacco Use Smoking status: Current Every Day Smoker Packs/day: 0.50 Types: Cigars Smokeless tobacco: Never Used Substance and Sexual Activity Alcohol use: Not on file Drug use: Not on file Sexual activity: Not on file Lifestyle Physical activity: Days per week: Not on file Minutes per session: Not on file Stress: Not on file Relationships Social connections: Talks on phone: Not on file Gets together: Not on file Attends sikhism service: Not on file Active member of club or organization: Not on file Attends meetings of clubs or organizations: Not on file Relationship status: Not on file Intimate partner violence: Fear of current or ex partner: Not on file Emotionally abused: Not on file Physically abused: Not on file Forced sexual activity: Not on file Other Topics Concern Not on file Social History Narrative Not on file Allergies Allergen Reactions Baclofen Other (See Comments) Unspecified reaction Ciprofloxacin Other (See Comments) Unspecified reaction Sulfa Antibiotics Other (See Comments) Unspecified reaction Intolerance No active intolerances/contraindications Current Outpatient Medications: albuterol 5 mg/mL nebulizer solution, Take 2.5 mg by nebulization every 6 hours as nee ded., Disp: , Rfl: albuterol 90 mcg/puff inhaler, Inhale 2 puffs into the lungs every 6 hours as needed., Disp: , Rfl: amLODIPine (NORVASC) 10 MG tablet, Take 10 mg by mouth 2 times daily., Disp: , Rfl: aspirin 81 mg EC tablet, Take 81 mg by mouth Daily., Disp: , Rfl: calcium-vitamin D (OSCAL) 500 mg-200 units per tablet, Take 1 tablet by mouth Daily., Disp: , Rfl: carboxymethylcellulose (REFRESH TEARS) 0.5% ophthalmic solution, Place 1 drop into bot h eyes every hour as needed., Disp: , Rfl: [employer] GLUCOSAMINE-CHONDROITIN PO, Take by mouth., Disp: , Rfl: cyanocobalamin (VITAMIN B-12) 100 mcg tablet, Take 1,000 mcg by mouth Daily., Disp: , Rfl: cyclobenzaprine (FLEXERIL) 5 MG tablet, Take 5 mg by mouth 3 times daily as needed., D isp: , Rfl: fish oil 1,000 mg capsule, Take 1,000 mg by mouth 3 times daily., Disp: , Rfl: fluconazole (DIFLUCAN) 150 mg tablet, Take 150 mg by mouth once., Disp: , Rfl: furosemide (LASIX) 20 mg tablet, 40 mg., Disp: , Rfl: gabapentin (NEURONTIN) 800 MG tablet, Take 800 mg by mouth 3 times daily., Disp: , Rfl : glipiZIDE (GLUCOTROL) 10 MG tablet, Take 10 mg by mouth 2 times daily (before meals)., Disp: , Rfl: insulin aspart (NOVOLOG PENFILL) 100 units/mL injection cartridge, Inject under the s kin 3 times daily (before meals)., Disp: , Rfl: insulin glargine (LANTUS) 100 units/mL injection (vial), Inject under the skin nightl y., Disp: , Rfl: Liraglutide (VICTOZA SC), Inject under the skin., Disp: , Rfl: losartan (COZAAR) 50 mg tablet, Take 50 mg by mouth Daily., Disp: , Rfl: metoprolol tartrate (LOPRESSOR) 25 mg tablet, TAKE 1 2 (ONE HALF) TABLET BY MOUTH TWIC E DAILY, Disp: , Rfl: Multiple Vitamins-Minerals (MULTIVITAL PO), Take by mouth., Disp: , Rfl: pregabalin (LYRICA) 25 mg capsule, Take 25 mg by mouth 2 times daily., Disp: , Rfl: rosuvastatin (CRESTOR) 20 mg tablet, Take 20 mg by mouth nightly., Disp: , Rfl: SPIRULINA PO, Take by mouth., Disp: , Rfl: Physical Exam: BP 94/48 | Pulse 76 | Ht 1.676 m (5' 6") | Wt 83.4 kg (183 lb 12.8 oz) | BMI 29.67 kg/m General appearance: Pleasant, not in acute distress. Neck: Supple without tracheal deviation or jugular venous distension. Head and ENT: Head is atraumatic. The oropharynx is without erythema or thrush. Eyes: Anicteric. The extraocular muscle movements are normal. Lungs: Clear to auscultation bilaterally. There are no wheezes. Heart: Regular rate and rhythm without any rub, gallop. Grade 2 systolic systolic murmur a ll over the precordium. Abdominal exam: Obese. Soft and nontender with normal bowel sounds. Musculoskeletal: No costovertebral angle tenderness bilaterally. Extremities: Warm to touch with trace leg edema. There is no cyanosis. Skin: There are no rashes, petechiae, or ecchymosis. Neurological: Awake, alert, and oriented to time, place, and person. Normal gross motor po wer. There is no asterixis. Psychiatric: The patient s behavior is normal. Judgment and thought content are normal. Lab Results Component Value Date HGB 12.2 07/28/2019 NA 142 07/28/2019 K 4.1 07/28/2019 CL 104 (A) 07/28/2019 CO2 31 07/28/2019 BUN 41 (A) 07/28/2019 CREA 2.12 (A) 07/28/2019 CALCIUM 8.6 07/28/2019 ALBUMIN 3.9 04/29/2019 EGFR 23.0 (A) 07/28/2019 LABPROT 6,323.3 (A) 07/28/2019 No results for input(s): BUN, CREA, EGFR, NA, K, CL, CO2, CALCIUM, PHOS, MG, ALBUMIN, HGB, HCT, IRON in the last 72 hours. No components found for: MALBRX No components found for: MICROALBUR Assessment: Ms. Mcneil is a 68 y.o. female patient with stage III CKD on a background of sydnie cady howell diabetes & hypertension. The most likely pathology here is that of diabetic nephropa thy +/- hypertensive nephrosclerosis/arteriolosclerosis. RENAL FUNCTION: Stable GFR vs 01/2019 BLOOD PRESSURE: Unknown control at home BLOOD SUGAR: Reports it uncontrolled ELECTROLYTES: okay ANEMIA: none VITAMIN D: To be checked thru your office PARATHYROID HORMONE: To be checked when indicated URIC ACID: At the upper limit of normal PROTEINURIA: Severe: nephrotic range URINALYSIS: +ve microscopic hematuria; No UTI. VOLUME STATUS: Euvolumic. Discussions/Recommendations: I discussed today with Ms. Mcneil the meaning of her CKD and the interaction of that with her diabetes & hypertension. I stressed the importance of keeping her BG & BP controlled and avoiding getting dehydra edgar if we are to have a chance at helping preserve her renal function. She showed good unde rstanding. I gave her instructions on how to chart her blood pressure in the appropriate manner at home. She is to call us if they fall outside of the optimal provided range. She will bring her sphygmomanometer for validation once a year. She will strictly abide by a low salt diet. She will avoid all kinds of NSAIDs for analgesia. Also: I decreased her Amlodipine to 5 mg every night. I increased her Losartan to 50 mg twice a day. I sent her for a repeat BMP + SPIE, SFLC in 1 week. She will report back to me her home BP readings in 1 week. At that time, I will decide w hether any change to his vasoactive regimen is warranted. I strongly advised her to stop smoking CRISPIN; I explained the benefits of doing that. She voiced good understanding. I sent her for a renal & bladder U/S soon. She F/U's with the Urology team for her microscopic hematuria. She will F/U with your office regularly. She will have a RFP, CBC, intact PTH, uric acid, urinalysis, Urine total tltoxxb-ly-alfo tinine ratio before she comes back in 3 months. More than 30 minutes of this 60-minute visit was spent in education and counseling. Thank you Rachel for the opportunity to see this patient in consult today. Please do not hesitate to call me at any time with questions or concerns. Truly yours, Matty Bingham MD FACP FAHA documented in this enco unter Plan of Treatment +--------+---------+ + + + | Date | Type | Specialty | Care Team | Description | +--------+---------+ + + + | 11/07/ | Office | Nephrology | Matty Bingham MD | | | 2019 | Visit | | [address] [facility] | | | | | | [address] [place], [place] | | | | | | [address] | | | | | | | | +--------+---------+ + + + documented as of this encounter Visit Diagnoses + + | Diagnosis | + + | CKD (chronic kidney disease) stage 4, GFR 15-29 ml/min ([facility]) - Primary Chronic kidney | | disease, Stage IV (severe) | + + | Type 2 diabetes mellitus with diabetic nephropathy, with long-term current use of | | insulin ([facility]) | + + | Essential hypertension Unspecified essential hypertension | + + | Tobacco abuse Tobacco use disorder | + + | Nephrotic range proteinuria Proteinuria | + + | Persistent proteinuria Proteinuria | + + documented in this encounter
--- OUTSIDE RECORDS SUMMARY | ~2019-10-05 | XMS | Encounter Summary ---
Demographics + + + | Address | [address] [facility] [address] | | | [place] [address] | + + + | Home Phone | | + + + | Preferred Language | Unknown | + + + | Marital Status | Unknown | + + + | Jainism Affiliation | Unknown | + + + | Race | Unknown | + + + | Ethnic Group | Unknown | + + + Author + + + | Author | [facility] | | | and [place] | + + + | Organization | [facility] | | | [...] Team Providers + +------+ + | Care Make Ready Worker Name | Role | Phone | + +------+ + PCP | Unavailable | + +------+ + Encounter Details +--------+ + + + + | Date | Type | Department | Care Team | Description | +--------+ + + + + | 11/17/ | Hospital | [facility] | [facility] | | | 2007 | Encounter | CONVERSION | MD [address] | | | | | [address] | [place] | [address] | | [address] | [place] [address] | | | | | [place], [place] | [phone] | | | | | [address] | | | | | | [phone] | | | +--------+ + + + [...] 2020 | Visit | | [address] [facility] | | | | | | [address] [place] | | | | | | [address] | | | | | | | | +--------+---------+ + + + documented as of this encounter Visit Diagnoses Not on filedocumented in this encounter"
--- OUTSIDE RECORDS SUMMARY | ~2019-10-05 | XMS | Encounter Summary ---
Demographics + + + | Address | [address] [facility] | | | [place] [address] | + + + | Home Phone | | + + + | Preferred Language | Unknown | + + + | Marital Status | Unknown | + + + | Zoroastrianism Affiliation | Unknown | + + + | Race | Unknown | + + + | Ethnic Group | Unknown | + + + Author + + + | Author | [facility] | | | and [place] | + + + | Organization | [facility] | | | [...] Team Providers + +------+ + | Care Climbing Guide Name | Role | Phone | + +------+ + | Benny James MD | PCP | | + +------+ + Encounter Details +--------+ + + + + | Date | Type | Department | Care Team | Description | +--------+ + + + + | 07/23/ | Orders Only | [facility] | Matty Bingham MD | Chronic kidney | | 2020 | | [facility]PHROLOG[facility] [place] | [address] [place] | disease, stage IV | | | | [address] [place] | [address] [facility] [place] | (severe) (HCC) | | | | [address] [place], [place] | [address] | (Primary Dx) | | | | [address] | | | | | | [phone] | | | +--------+ + + + [...] 2019 | Visit | | [address] [facility] [place] | | | | | | [address] [place], [place] | | | | | | [address] | | | | | | | | +--------+---------+ + + + + +------+--------+ + + | Name | Type | Priori | Associated Diagnoses | Order Schedule | | | | ty | | | + +------+--------+ + + | Basic Metabolic | Lab | Routin | Chronic kidney | Expected: | | Panel | | e | disease, stage IV | 07/26/2019, Expires: | | | | | (severe) (HCC) | 07/23/2020 | + +------+--------+ + + | Protein/Creatinine | Lab | Routin | Chronic kidney | Expected: | | Ratio, Urine | | e | disease, stage IV | 07/26/2019, Expires: | | | | | (severe) (HCC) | 07/23/2020 | + +------+--------+ + + | Uric Acid | Lab | Routin | Chronic kidney | Expected: | | | | e | disease, stage IV | 07/26/2019, Expires: | | | | | (severe) ([facility]) | 07/23/2020 | + +------+--------+ + + | Urinalysis With | Lab | Routin | Chronic kidney | Expected: | | Microscopic | | e | disease, stage IV | 07/26/2019, Expires: | | | | | (severe) ([facility]) | 07/23/2020 | + +------+--------+ + + | CBC with | Lab | Routin | Chronic kidney | Expected: | | Differential | | e | disease, stage IV | 07/26/2019, Expires: | | | | | (severe) (HCC) | 07/23/2020 | + +------+--------+ + + documented as of this encounter Visit Diagnoses + + | Diagnosis | + + | Chronic kidney disease, stage IV (severe) (HCC) - Primary Chronic kidney disease, | | Stage IV (severe) | + + documented in this encounter"
--- OUTSIDE RECORDS SUMMARY | ~2019-10-05 | XMS | Encounter Summary ---
Demographics + + + | Address | [address] [facility] | | | [place] [address] | + + + | Home Phone | | + + + | Preferred Language | Unknown | + + + | Marital Status | Unknown | + + + | Sikh Affiliation | Unknown | + + + [...] Team Providers + +------+ + | Care Patient Relations Liaison Name | Role | Phone | + +------+ + | Benny James MD | PCP | | + +------+ + Encounter Details +--------+ + + + + | Date | Type | Department | Care Team | Description | +--------+ + + + + | 07/27/ | Orders Only | [facility] | Art, | | | 2019 | | NEPHROLOGY [place] | Naomi Seo | | | | | [address] [place] | [employer]oline [employer] Operator | | | | | [address] [place] | | | | | | [address] | | | | | | [phone] | | | +--------+ + + + [...] 2020 | Visit | | [address] [facility] | | | | | | [address] [place], [place] | | | | | | [address] | | | | | | | | +--------+---------+ + + + documented as of this encounter Procedures + +--------+ + + + | Procedure Name | Priori | Date/Time | Associated Diagnosis | Comments | | | ty | | | | + +--------+ + + + | CBC NO DIFFERENTIAL | Routin | 04/29/2019 | | Results for this | | | e | | | procedure are in the | | | | | | results section. | + +--------+ + + + | MICROALBUMIN/CREATIN | Routin | 04/29/2019 | | Results for this | | INE RATIO, URINE | e | | | procedure are in the | | TEST | | | | results section. | + +--------+ + + + | URINALYSIS | Routin | 04/29/2019 | | Results for this | | | e | | | procedure are in the | | | | | | results section. | + +--------+ + + + | HEMOGLOBIN A1C | Routin | 04/29/2019 | | Results for this | | | e | | | procedure are in the | | | | | | results section. | + +--------+ + + + | COMPREHENSIVE | Routin | 04/29/2019 | | Results for this | | METABOLIC PANEL | e | | | procedure are in the | | | | | | results section. | + +--------+ + + + | VITAMIN D, | Routin | 01/29/2019 | | Results for this | | 25-HYDROXY, LC/MS/MS | e | | | procedure are in the | | | | | | results section. | + +--------+ + + + | CBC NO DIFFERENTIAL | Routin | 01/29/2019 | | Results for this | | | e | | | procedure are in the | | | | | | results section. | + +--------+ + + + | MICROALBUMIN/CREATIN | Routin | 01/29/2019 | | Results for this | | INE RATIO, URINE | e | | | procedure are in the | | TEST | | | | results section. | + +--------+ + + + | TSH | Routin | 01/29/2019 | | Results for this | | | e | | | procedure are in the | | | | | | results section. | + +--------+ + + + | T4, FREE | Routin | 01/29/2019 | | Results for this | | | e | | | procedure are in the | | | | | | results section. | + +--------+ + + + | COMPREHENSIVE | Routin | 01/29/2019 | | Results for this | | METABOLIC PANEL | e | | | procedure are in the | | | | | | results section. | + +--------+ + + + documented in this encounter Results CBC with Manual Differential (04/29/2019) + + + + + + | Component | Value | Ref Range | Performed | Pathologist | | | | | At | Signature | + + + + + + | WBC | 6.6 | 3.0 - 10.6 | | | + + + + + + | RBC | 4.11 | 3.86 - 5.70 | | | | | | M/uL | | | + + + + + + | Hemoglobin | 11.7 (A) | 11.8 - 17.1 | | | + + + + + + | Hematocrit, | 35.9 (A) | 36.0 - 51.0 % | | | | POC | | | | | + + + + + + | MCV | 87.3 | 81.0 - 102.0 fL | | | + + + + + + | MCH | 28.5 | 27.0 - 31.0 pg | | | + + + + + + | MCHC | 32.6 | 32.0 - 36.0 | | | | | | g/dL | | | + + + + + + | Platelet | 255 | 150 - 450 | | | | Count | | | | | | Plasma | | | | | + + + + + + | RDW | 13.7 | 11.2 - 16.2 | | | + + + + + + | BAL | 63 | 44 - 75 % | | | | Neutrophils | | | | | | % | | | | | + + + + + + | % | 26.8 | 15 - 42 | | | | Lymphocytes | | | | | + + + + + + | Monocyte % | 7.3 | 4 - 13 | | | + + + + + + | BAL | 2 | 0 - 7 % | | | | Eosinophils | | | | | | % | | | | | + + + + + + | BF % | 1 | 0 - 2 % | | | | Basophils | | | | | + + + + + + + + | Specimen | + + | Blood | + + Hemoglobin A1C (04/29/2019) + +---------+ + + + | Component | Value | Ref Range | Performed | Pathologist | | | | | At | Signature | + +---------+ + + + | Hemoglobin | 8.9 (A) | 0.0 - 5.6 % | | | | A1c | | | | | + +---------+ + + + + + | Specimen | + + | Blood | + + Comprehensive Metabolic Panel (04/29/2019) + + + + + + | Component | Value | Ref Range | Performed | Pathologist | | | | | At | Signature | + + + + + + | Glucose | 240 (A) | 71 - 109 mg/dL | | | + + + + + + | BUN | 52 (A) | 7 - 23 mg/dL | | | + + + + + + | Creatinine | 2.00 (A) | 0.80 - 1.50 | | | | | | mg/dL | | | + + + + + + | Estimated | 24.7 (A) | 60.0 - 140.0 | | | | GFR | | mL/min/1.73m2 | | | + + + + + + | Na | 137 | 133 - 145 | | | | | | mmol/L | | | + + + + + + | K | 4.6 | 3.5 - 5.1 | | | | | | mmol/L | | | + + + + + + | Cl | 100 | 98 - 107 mmol/L | | | + + + + + + | CO2 | 24 | 21 - 32 mmol/L | | | + + + + + + | Calcium | 8.9 | 8.4 - 10.3 | | | + + + + + + | Albumin | 3.9 | 3.5 - 5.0 g/dL | | | + + + + + + | Globulin | 2.3 | 2.3 - 3.5 | | | + + + + + + | ALP, | 81 | 45 - 129 | | | | External | | | | | + + + + + + | AST | 11 (A) | 14 - 44 U/L | | | + + + + + + | ALT | 15 | 9 - 57 U/L | | | + + + + + + | BILIRUBIN, | 0.4 | 0.2 - 1.3 | | | | TOTAL | | | | | + + + + + + | Protein, | 6.2 (A) | 6.5 - 8.2 | | | | Total | | | | | + + + + + + + + | Specimen | + + | Blood | + + Urinalysis (04/29/2019) + + + + + + | Component | Value | Ref Range | Performed | Pathologist | | | | | At | Signature | + + + + + + | Color | yelkow | | | | + + + + + + | Clarity | Hazy | | | | + + + + + + | Specific | 1.013 | 1.001 - 1.030 | | | | [place], | | | | | | Urine | | | | | + + + + + + | pH, Urine | 5.0 | 5.0 - 8.0 | | | + + + + + + | Protein, | 4+ (A) | Negative | | | | Urine | | | | | + + + + + + | Glucose, | 150 mg/dL (A) | Negative | | | | Urine | | | | | + + + + + + | Ketones, | Negative | Negative | | | | Urine | | | | | + + + + + + | Bilirubin, | Negative | Negative | | | | Urine | | | | | + + + + + + | Blood, | Small (A) | Negative | | | | Urine | | | | | + + + + + + | Nitrite, | Negative | Negative | | | | Urine | | | | | + + + + + + | Urobilinoge | 2.0 E.U./dL (A) | < 0.2 mg/dL, | | | | n, Urine | | 1.0 mg/dL, 4.0 | | | | | | mg/dL, Normal, | | | | | | 1.0 E.U./dL, | | | | | | 0.2 E.U./dL, | | | | | | 0.2 mg/dL, | | | | | | Negative, 1 | | | | | | mg/dL, <2.0 | | | | | | mg/dL | | | + + + + + + | Leukocyte | Negative | Negative | | | | Esterase, | | | | | | Urine | | | | | + + + + + + + + | Specimen | + + | Urine | + + Microalbumin/Creatinine Ratio, Urine (04/29/2019) + + + + + + | Component | Value | Ref Range | Performed | Pathologist | | | | | At | Signature | + + + + + + | Microalb | 1,027.0 (A) | 0 - 30 | | | | Creat Ratio | | | | | + + + + + + + + | Specimen | + + | Urine | + + Microalbumin/Creatinine Ratio, Urine (01/29/2019) + + + + + + | Component | Value | Ref Range | Performed | Pathologist | | | | | At | Signature | + + + + + + | Microalb | 1,961.0 (A) | 0 - 30 | | | | Creat Ratio | | | | | + + + + + + + + | Specimen | + + | Urine | + + CBC with Manual Differential (01/29/2019) + +-------+ + + + | Component | Value | Ref Range | Performed | Pathologist | | | | | At | Signature | + +-------+ + + + | WBC | 9.4 | 3.0 - 10.6 | | | + +-------+ + + + | RBC | 4.68 | 3.86 - 5.70 | | | | | | M/uL | | | + +-------+ + + + | Hemoglobin | 13.1 | 11.8 - 17.1 | | | + +-------+ + + + | Hematocrit, | 39.8 | 36.0 - 51.0 % | | | | POC | | | | | + +-------+ + + + | MCV | 85.0 | 81.0 - 102.0 fL | | | + +-------+ + + + | MCH | 28.0 | 27.0 - 31.0 pg | | | + +-------+ + + + | MCHC | 32.9 | 32.0 - 36.0 | | | | | | g/dL | | | + +-------+ + + + | Platelet | 291 | 150 - 450 | | | | Count | | | | | | Plasma | | | | | + +-------+ + + + | RDW | 15 | 11.2 - 16.6 | | | + +-------+ + + + | BAL | 58 | 44 - 74 % | | | | Neutrophils | | | | | | % | | | | | + +-------+ + + + | % | 30.1 | 15 - 42 | | | | Lymphocytes | | | | | + +-------+ + + + | Monocyte % | 6.1 | 4 - 13 | | | + +-------+ + + + | BAL | 4 | 0 - 7 % | | | | Eosinophils | | | | | | % | | | | | + +-------+ + + + | BF % | 1 | 0 - 2 % | | | | Basophils | | | | | + +-------+ + + + + + | Specimen | + + | Blood | + + Vitamin D, 25-Hydroxy, LC/MS/MS (01/29/2019) + + + + + + | Component | Value | Ref Range | Performed | Pathologist | | | | | At | Signature | + + + + + + | Vit D, | 27.4 (A) | 30 - 100 | | | | 25-Hydroxy | | | | | + + + + + + + + | Specimen | + + | Blood | + + TSH (01/29/2019) + +-------+ + + + | Component | Value | Ref Range | Performed | Pathologist | | | | | At | Signature | + +-------+ + + + | TSH, | 3.970 | 0.300 - 4.25 | | | | External | | | | | + +-------+ + + + + + | Specimen | + + | Blood | + + T4, Free (01/29/2019) + +-------+ + + + | Component | Value | Ref Range | Performed | Pathologist | | | | | At | Signature | + +-------+ + + + | T4 Total, | 1.1 | 0.6 - 2.0 | | | | External | | | | | + +-------+ + + + + + | Specimen | + + | Blood | + + Comprehensive Metabolic Panel (01/29/2019) + + + + + + | Component | Value | Ref Range | Performed | Pathologist | | | | | At | Signature | + + + + + + | Glucose | 223 (A) | 71 - 109 mg/dL | | | + + + + + + | BUN | 39 (A) | 7 - 23 mg/dL | | | + + + + + + | Creatinine | 2.10 (A) | 0.80 - 1.50 | | | | | | mg/dL | | | + + + + + + | Estimated | 23.4 (A) | 60.0 - 140.0 | | | | GFR | | mL/min/1.73m2 | | | + + + + + + | Na | 137 | 133 - 145 | | | | | | mmol/L | | | + + + + + + | K | 5.3 (A) | 3.5 - 5.1 | | | | | | mmol/L | | | + + + + + + | Cl | 102 | 98 - 107 mmol/L | | | + + + + + + | CO2 | 27 | 21 - 32 mmol/L | | | + + + + + + | Calcium | 10.2 | 8.4 - 10.5 | | | + + + + + + | Protein, | 6.6 | 6.5 - 8.2 | | | | Total | | | | | + + + + + + | Albumin | 4.2 | 3.5 - 5.0 g/dL | | | + + + + + + | Globulin | 2.4 | 2.3 - 3.5 | | | + + + + + + | ALP, | 79 | 45 - 129 | | | | External | | | | | + + + + + + | AST | 12 (A) | 14 - 44 U/L | | | + + + + + + | ALT | 16 | 9 - 57 U/L | | | + + + + + + | BILIRUBIN, | 0.5 | 0.2 - 1.3 | | | | TOTAL | | | | | + + + + + + + + | Specimen | + + | Blood | + + documented in this encounter Visit Diagnoses Not on filedocumented in this encounter"
--- OUTSIDE RECORDS SUMMARY | ~2019-10-05 | XMS | Encounter Summary ---
Demographics + + + | Address | [address] [facility] | | | [place] [address] | + + + | Home Phone [...] Team Providers + +------+ + | Care Continuity Director Name | Role | Phone | + +------+ + PCP | Unavailable | + +------+ + Encounter Details +--------+ + + + + | Date | Type | Department | Care Team | Description | +--------+ + + + + | 12/07/ | Hospital | [facility] | Maximilian Benoit | | | 2009 | Encounter | CONVERSION | MD [address] | | | | | [address] | [place] | | | | [address] | [place] [address] | | | | | [place], [place] | [phone] | | | | | [address] | | | | | | [phone] | | | +--------+ + + + [...] 2020 | Visit | | [address] [facility] | | | | | | [address] [place] | | | | | | [address] | | | | | | | | +--------+---------+ + + + documented as of this encounter Visit Diagnoses Not on filedocumented in this encounter"
--- OUTSIDE RECORDS SUMMARY | ~2019-10-05 | XMS | Encounter Summary ---
Demographics + + + | Address | [address] [facility] | | | [place] [address] | + + + | Home Phone | | + + + | Preferred Language | Unknown | + + + | Marital Status | Unknown | + + + | Methodist Affiliation | Unknown | + + + | Race | Unknown | + + + | Ethnic Group | Unknown | + + + Author + + + | Author | [facility] | | | and [place] | + + + | Organization | [facility] | | | [...] Team Providers + +------+ + | Care Edge Beader Name | Role | Phone | + +------+ + | Benny James MD | PCP | | + +------+ + Encounter Details +--------+ + + + + | Date | Type | Department | Care Team | Description | +--------+ + + + + | 07/23/ | Orders Only | [facility] | Matty Bingham MD | Chronic kidney | | 2020 | | NEPHROLOGY [place] | [address] [place] | disease, stage IV | | | | [address] [place] | [address] [facility] [place] | (severe) (HCC) | | | | [address] [place], [place] | [address] | (Primary Dx) | | | | [address] | | | | | | [phone] | | | +--------+ + + + [...] 2019 | Visit | | [address] [facility] [place] | | | | | | [address] [place], [place] | | | | | | [address] | | | | | | | [...] Expires: | | | | | (severe) ([facility]) | 07/23/2020 | + +------+--------+ + + | Urinalysis With | Lab | Routin | Chronic kidney | Expected: | | Microscopic | | e | disease, stage IV | 07/26/2019, Expires: | | | | | (severe) ([facility]) | 07/23/2020 | + +------+--------+ + + [...]
--- OUTSIDE RECORDS SUMMARY | ~2019-10-05 | XMS | Encounter Summary ---
Demographics + + + | Address | [address] [facility] | | | [place] [address] | + + + | Home Phone | | + + + | Preferred Language | Unknown | + + + | Marital Status | Unknown | + + + | Congregation Affiliation | Unknown | + + + | Race | Unknown | + + + | Ethnic Group | Unknown | + + + Author + + + | Author | [facility] | | | and [place] | + + + | Organization | [facility] | | [...] Team Providers + +------+ + | Care Cut Out Press Operator Name | Role | Phone | + +------+ + PCP | Unavailable | + +------+ + Encounter Details +--------+ + + + + | Date | Type | Department | Care Team | Description | +--------+ + + + + | 11/13/ | Hospital | [facility] | | | | 2006 | Encounter | MED CTR XRAY [address] | | | | | | [address] | | | | | | [place] [address] | | | | | | [phone] | | | +--------+ + + + [...] [place] | | | | | | [address] | | | | | | (Fax) | | +--------+---------+ + + + documented as of this encounter Visit Diagnoses Not on filedocumented in this encounter"
--- OUTSIDE RECORDS SUMMARY | ~2019-10-05 | XMS | Encounter Summary ---
Demographics + + + | Address | [address] [facility] | | | [place] [address] | + + + | Home Phone [...] + + + | Author | [facility] | | | and [place] | + + + | Organization | [facility] | | | [...] Team Providers + +------+ + | Care Software Engineer Name | Role | Phone | + [...] [address] | | | | | | [place], [place] | | | | | | [address] | | | | | | [phone] | | | +--------+ + + + [...] 2020 | Visit | | [address] [facility] | | | | | | [address] [place] | | | | | | [address] | | | | | | | | +--------+---------+ + + + documented as of this encounter Visit Diagnoses Not on filedocumented in this encounter"
--- OUTSIDE RECORDS SUMMARY | ~2019-10-05 | XMS | Encounter Summary ---
Demographics + + + | Address | [address] [facility] | | | [place] [address] | + + + | Home Phone [...] Team Providers + +------+ + | Care Toe Laster Name | Role | Phone | + +------+ + | Lizet Oliva | PCP | | + +------+ + Reason for Visit +--------+ + | Reason | Comments | +--------+ + | Pain | | +--------+ + Encounter Details +--------+ + [...] | | | [address] [place], [place] | [address] | | | | | [address] | | | | | | [phone] | | | +--------+ + + + [...] 2020 | Visit | | [address] [facility] | | | | | | [address] [place] | | | | | | [address] | | | | | | | | +--------+---------+ + + + documented as of this encounter Visit Diagnoses Not on filedocumented in this encounter"
--- OUTSIDE RECORDS SUMMARY | ~2019-10-05 | XMS | Encounter Summary ---
Demographics + + + | Address | [address] [facility] | | | [place] [address] | + + + | Home Phone [...] Team Providers + +------+ + | Care Outsole Tacker Name | Role | Phone | + +------+ + | Lizet Oliva | PCP | | + +------+ + Encounter Details +--------+ + + + + | Date | Type | Department | Care Team | Description | +--------+ + + + + | 08/02/ | Orders Only | [facility] | Matty Bingham MD | Essential | | 2020 | | NEPHROLOGY [place] | [address] [place] | hypertension | | | | [address] | [address] [place], [place] | (Primary Dx); CKD | | | | [address] [place] [address] | [address] | (chronic kidney | | | | [place], [place] | | disease) stage 4, | | | | [address] | | GFR 15-29 ml/min | | | | [phone] | | (HCC); Nephrotic | | | [...] 2020 | Visit | | [address] [facility] | | | | | | [address] [place] | | | | | | [address] | | | | | | | [...] | | | | | ([facility]) Nephrotic | | | | | | [...] | | | | | ([facility]) Nephrotic | | | | | | [...] | | | | | ([facility]) Nephrotic | | | | | | [...] | | | | | ([facility]) Nephrotic | | | | | | [...]
--- OUTSIDE RECORDS SUMMARY | ~2019-10-05 | XMS | Encounter Summary ---
Demographics + + + | Address | [address] [facility] | | | [place] [address] | + + + | Home Phone | | + + + | Preferred Language | Unknown | + + + | Marital Status | Unknown | + + + | Holiness Affiliation | Unknown | + + + [...] Team Providers + +------+ + | Care Radioisotope Technologist Name | Role | Phone | + +------+ + PCP | Unavailable | + +------+ + Encounter Details +--------+ + + + + | Date | Type | Department | Care Team | Description | +--------+ + + + + | 08/11/ | Hospital | [facility] | Aníbal Self | | | 2011 | Encounter | HOSPITAL EMERGENCY | MD [address] | | | | | [address] [address] | | | | | [address] [place], [place] | [place], [place] | | | | | [address] | [address] | | | | | [phone] | | | | | | | [...] | Visit | | [address] [facility] | | | | | | [address] [place] | | | | | | [address] | | | | | | | | +--------+---------+ + + + documented as of this encounter Visit Diagnoses Not on filedocumented in this encounter"
--- OUTSIDE RECORDS SUMMARY | ~2019-10-05 | XMS | Clinical Summary ---
Demographics + + + | Address | [address] [facility] | | | [place] [address] | + + + | Home Phone [...] Team Providers + +------+ + | Care Scientific Informatics Analyst Name | Role | Phone | + [...] + + +---------+------+------+-------+ | furosemide (LASIX) | 40 mg. | | 0 | 04/1 | | Activ | | 20 mg tablet | | | | 7/20 | | e [...] | | mcg/puff inhaler | the lungs every 6 | | | | | e | | | hours as needed. | | | | | | + + + +---------+------+------+-------+ | | Place 1 drop into | | 0 | | | Activ | | carboxymethylcellulo | both eyes every hour | | | | | e | | se (REFRESH TEARS) | as needed. | | | | | | | 0.5% ophthalmic | | | | | | | | solution | | | | | | | + + + +---------+------+------+-------+ | cyclobenzaprine | Take 5 mg by mouth 3 | | 0 | | | Activ | | (FLEXERIL) 5 MG | times daily as | | | | | e | | tablet | needed. | | | | | | + + + +---------+------+------+-------+ | fluconazole | Take 150 mg by mouth | | 0 | | | Activ | | (DIFLUCAN) 150 mg | once. | | | | | e | | tablet | | | | | | | + + + +---------+------+------+-------+ | gabapentin | Take 800 mg by mouth | | 0 | | | Activ | | (NEURONTIN) 800 MG | 3 times daily. | | | | | e | | tablet | | | | | | | + + + +---------+------+------+-------+ | insulin aspart | Inject under the | | 0 | | | Activ | | (NOVOLOG PENFILL) | skin 3 times daily | | | | | e | | 100 units/mL | (before meals). | | | | | | | injection cartridge | | | | | | | + + + +---------+------+------+-------+ | insulin glargine | Inject under the | | 0 | | | Activ | | (LANTUS) 100 | skin nightly. | | | | | e | | units/mL injection | | | | | | | | (vial) | | | | | | | + + + +---------+------+------+-------+ | Liraglutide | Inject under the | | 0 | | | Activ | | (VICTOZA SC) | skin. | | | | | e | + + + +---------+------+------+-------+ | aspirin 81 mg EC | Take 81 mg by mouth | | 0 | | | Activ | | tablet | Daily. | | | | | e | + + + +---------+------+------+-------+ | calcium-vitamin [...] + +---------+------+------+-------+ | metoprolol | TAKE 1 2 (ONE HALF) | | 0 | 01/0 | | Activ | | tartrate (LOPRESSOR) | TABLET BY MOUTH | | | 5/20 | | e | | 25 mg tablet | TWICE DAILY | | | 20 | | | + + + +---------+------+------+-------+ | Multiple | Take by mouth. | | 0 | | | Activ | | Vitamins-Minerals | | | | | | e | | (MULTIVITAL PO) | | | | | | | + + + +---------+------+------+-------+ | glipiZIDE | Take 10 mg by mouth | | 0 | | | Activ | | (GLUCOTROL) 10 MG | 2 times daily | | | | | e | | tablet | (before meals). | | | | | | + + + +---------+------+------+-------+ | rosuvastatin | Take 20 mg by mouth | | 0 | | | Activ | | (CRESTOR) 20 mg | nightly. | | | | | e | | tablet | | | | | | | + + + +---------+------+------+-------+ | amLODIPine | Take 10 mg by mouth | | 0 | | | Activ | | (NORVASC) 10 MG | 2 times daily. | | | | | e | | tablet | | | | | | | + + + +---------+------+------+-------+ | pregabalin | Take 25 mg by mouth | | 0 | | | Activ | | (LYRICA) 25 mg | 2 times daily. | | | | | e | | capsule | | | | | | | + + + +---------+------+------+-------+ | fish oil 1,000 mg | Take 1,000 mg by | | 0 | | | Activ | | capsule | mouth 3 times daily. | | | | | [...] | | + + + +---------+------+------+-------+ | losartan (COZAAR) | Take 1 tablet by | 180 | 3 | 03/0 | | Activ | | 50 mg tablet | mouth 2 times daily. | tablet | | 20 | | e | | | | | | 20 | | | + + + +---------+------+------+-------+ Active Problems + + + | Problem | Noted Date | + + + | Tobacco abuse [...] | | Naomi Seo | sent to [facility] for | | | | | Job Hand | patients PCP | | | | [...] MD | Other (RBC ua | | 2019 | | | | result) | +--------+ + + + + | 08/02/ | Orders Only | Nephrology | Matty Bingham MD | Essential | | 2020 | | | | hypertension | | | | | | (Primary Dx); CKD | | | | | | (chronic kidney | | | | | | disease) stage 4, | | | | | | GFR 15-29 ml/min | | | | | | ([facility]); Nephrotic | | | | | [...] ml/min | | | | | | ([facility]) (Primary Dx); | | | | | | 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, 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 | | | | | | use of insulin | | | | | | ([facility]); Essential | | | | | | hypertension; | | | | | | Tobacco abuse; | | | | | | 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; | | | | | | Persistent | | | | | | proteinuria | +--------+ + + + + | 07/28/ | Documentati | Nephrology | Art | Dav (07/28/19) | | 2020 | on | | [facility], Medical | | | | | | Job Hand | | +--------+ + + + + | 07/27/ | Orders Only | Nephrology | Art, | | | 2019 | | | Naomi Seo | | | | | | Job Hand | | +--------+ + + + + | 07/23/ | Orders Only | Nephrology | Matty Bingham MD | Chronic kidney | | 2019 | | | | disease, stage IV | | | | | | (severe) (HCC) | | | | | | (Primary Dx) | +--------+ + + + + from Last 3 Months Social History + +--------+ +--------+------+ | Tobacco [...] | Visit | | [address] [facility] | | | | | | [address] [place] | | | | | | [address] | | | | | | | [...] + + + | Vaccine: | | | | | Pneumococcal 65+ (1 | 5 | | | | of 2 - PCV13) | | | | + + + [...] + + from Last 3 Months Results LABS - EXTERNAL SCAN (07/28/2019 12:00 AM [...] 1.001 - 1.030 | | | | [place], | | | | | | Urine [...] from Last 3 Months Insurance + +--------+ +--------+-------+---------+--------+ | Payer | Benefi | Subscriber | Effect | Phone | Address | Type | | | t Plan | ID | ira | | | | | | / | | Dates | | | | | | Group | | | | | | + +--------+ +--------+-------+---------+--------+ | [employer] [place] [place] | [id number] | 08/02/19 | | | Indemn | | | CHOICE | | 20-Pre | | | ity | | | PC3 | | sent | | | | + +--------+ +--------+-------+---------+--------+ | [employer] | [place] | [id number] | 08/02/19 | | | Indemn | | | NS | | 20-Pre | | | ity | | | ADMIN | | sent | | | | | | [place] | | | | | | | | [place] | | | | | | + +--------+ +--------+-------+---------+--------+ | [place] [place] [place] | [id number] | | | | Indemn | | | CHOICE | | 016-Pr | | | ity | | | PC3 | | esent | | | | + +--------+ +--------+-------+---------+--------+ + +--------+ +--------+ + + | Guarantor Name | Accoun | Relation to | Date | Phone | Billing Address | | | t Type | Patient | of | | | | | | | | | | + +--------+ +--------+ + + | Lizet Mcneil | Person | Self [birth year] | [address] | | | al/Fam | | 1951 | [phone] | [address] [place] | | | [place]ardo | | | [address] (Home) | [phone] | + +--------+ +--------+ + + | Lizet Mcneil | Person | Self | [birth year] | | [address] | | | al/Fam | | 1951 | [phone] | [address] [place] | | | [place] | | | [address] (Home) | [phone] | + +--------+ +--------+ + + Advance Directives + + + + + | Type | Date Recorded | Patient | Explanation | | | | Trauma Therapist | | + + + + + | Power of | | | | | Pulmonary Nurse Practitioner | | | | + + + + + | Advance | | | | | Directive | | | | + + + + +
--- OUTSIDE RECORDS SUMMARY | ~2019-10-05 | XMS | Encounter Summary ---
Demographics + + + | Address | [address] [facility] | | | [place] [address] | + + + | Home Phone | | + + + | Preferred Language | Unknown | + + + | Marital Status | Unknown | + + + | Yazidism Affiliation | Unknown | + + + [...] Team Providers + +------+ + | Care Ticket Maker Name | Role | Phone | + [...] + + | 09/01/ | Telephone | [facility] | Matty Bingham MD | Pain | | 2020 | | NEPHROLOGY [place] | [address] [place] | | | | | [address] [place] | [address] [place], [place] | | | | | [address] [place], [place] | [address] | | | | | [address] | | | | | | [phone] | | | +--------+ + + + [...] Visit | | [address] [facility] | | | | | | [address] [place] | | | | | | [address] | | | | | | | | +--------+---------+ + + + documented as of this encounter Visit Diagnoses Not on filedocumented in this encounter"
--- OUTSIDE RECORDS SUMMARY | ~2019-10-05 | XMS | Encounter Summary ---
Demographics + + + | Address | [address] [facility] | | | [place] [address] | + + + | Home Phone | | + + + | Preferred Language | Unknown | + + + | Marital Status | Unknown | + + + | Faith Affiliation | Unknown | + + + [...] Team Providers + +------+ + | Care Cold Mill Operator Name | Role | Phone | [...] + + | 08/03/ | Telephone | [facility] | Matty Bingham MD | Other (RBC ua | | 2020 | | NEPHROLOGY [place] | [address] [place] | result) | | | | [address] | [address] [place], [place] | | | | | [address] [place] [address] | [address] | | | | | [place], [place] | | | | | | [address] | | | | | | [phone] | | | +--------+ + + + [...] 2020 | Visit | | [address] [facility] | | | | | | [facility] | | | | | | [address] | | | | | | | | +--------+---------+ + + + documented as of this encounter Visit Diagnoses Not on filedocumented in this encounter"
--- OUTSIDE RECORDS SUMMARY | ~2019-10-05 | XMS | Encounter Summary ---
Demographics + + + | Address | [address] [facility] | | | [place] [address] | + + + | Home Phone | | + + + | Preferred Language | Unknown | + + + | Marital Status | Unknown | + + + | Sikhism Affiliation | Unknown | + + + | Race | Unknown | + + + | Ethnic Group | Unknown | + + + Author + + + | Author | [facility] | | | and [place] | + + + | Organization | [facility] | | [...] Team Providers + +------+ + | Care Locksmith Helper Name | Role | Phone | + +------+ + PCP | Unavailable | + +------+ + Encounter Details +--------+ + + + + | Date | Type | Department | Care Team | Description | +--------+ + + + + | 11/24/ | Hospital | [facility] | Maximilian Benoit | | | 2007 | Encounter | CONVERSION | MD [address] | | | | | [address] | [address] | [address] | | | [address] | [place] [address] | | | | | [place], [place] | [phone] | | | | | [address] | | | | | | [phone] | | | +--------+ + + + [...] 2020 | Visit | | [address] [facility] | | | | | | 160 [place] | | | | | | [address] | | | | | | | | +--------+---------+ + + + documented as of this encounter Visit Diagnoses Not on filedocumented in this encounter"
--- OUTSIDE RECORDS SUMMARY | ~2019-10-05 | XMS | Encounter Summary ---
Demographics + + + | Address | [address] [facility] | | | [place] [address] | + + + | Home Phone [...] Team Providers + +------+ + | Care Dealer Analyst Name | Role | Phone | [...] [address] | | | | | | [place], [place] | (Fax) | | | | | [address] | | | | | | [phone] | | | +--------+ + + + [...] 2020 | Visit | | [address] [facility] | | | | | | [address] [place], [place] | | | | | | [address] | | | | | | | | +--------+---------+ + + + documented as of this encounter Visit Diagnoses Not on filedocumented in this encounter"
--- OUTSIDE RECORDS SUMMARY | ~2019-10-05 | XMS | Encounter Summary ---
Demographics + + + | Address | [address] [facility] | | | [place] [address] | + + + | Home Phone | | + + + | Preferred Language | Unknown | + + + | Marital Status | Unknown | + + + | Faith Affiliation | Unknown | + + + | Race | Unknown | + + + | Ethnic Group | Unknown | + + + Author + + + | Author | [facility] | | | and [place] | + + + | Organization | [facility] | | | [...] Team Providers + +------+ + | Care Hotel Manager Name | Role | Phone | [address] | | | | | | [place], [place] | | | | | | [address] | | | | | | [phone] | | | +--------+ + + + [...] 2020 | Visit | | [address] [facility] | | | | | | [address] [place] | | | | | | [address] | | | | | | | | +--------+---------+ + + + documented as of this encounter Visit Diagnoses Not on filedocumented in this encounter"
--- OUTSIDE RECORDS SUMMARY | ~2019-10-05 | XMS | Encounter Summary ---
Demographics + + + | Address | [address] [facility] | | | [place] [address] | + + + | Home Phone | | + + + | Preferred Language | Unknown | + + + | Marital Status | Unknown | + + + | Jew Affiliation | Unknown | + + + | Race | Unknown | + + + | Ethnic Group | Unknown | + + + Author + + + | Author | [facility] | | | and [place] | + + + | Organization | [facility] | | | and [...] Team Providers + +------+ + | Care Chicken Buyer Name | Role | Phone | + +------+ + PCP | Unavailable | + +------+ + Encounter Details +--------+ + + + + | Date | Type | Department | Care Team | Description | +--------+ + + + + | 04/28/ | Hospital | [facility] | Niharika Hsieh | | | 2006 | Encounter | HOSPITAL EMERGENCY | MD [address] | | | | | [place] [address] | [address] [place], | | | | | [address] [place], [place] | [place] [address] | | | | | [address] | [phone] | | | | | [phone] | | | +--------+ + + + [...] 2020 | Visit | | [address] [facility] | | | | | | [address] [place], [place] | | | | | | [address] | | | | | | | | +--------+---------+ + + + documented as of this encounter Visit Diagnoses Not on filedocumented in this encounter"
--- OUTSIDE RECORDS SUMMARY | ~2019-10-05 | XMS | Encounter Summary ---
Demographics + + + | Address | [address] [facility] | | | [place] [address] | + + + | Home Phone | | + + + | Preferred Language | Unknown | + + + | Marital Status | Unknown | + + + | Scientology Affiliation | Unknown | + + + | Race | Unknown | + + + | Ethnic Group | Unknown | + + + Author + + + | Author | [facility] | | | and [place] | + + + | Organization | [facility] | | | [...] Team Providers + +------+ + | Care Process Cheese Cooker Name | Role | Phone | + +------+ + | Lizet Oliva | PCP | | + +------+ + Reason for Visit +--------+ + | Reason | Comments | +--------+ + | Other | Signed letter sent to [facility] for patients PCP confirmation received | +--------+ + Encounter Details +--------+ + + + + | Date | Type | Department | Care Team | Description | +--------+ + + + + | 09/01/ | Documentati | [facility] | Art, | Other (Signed letter | | 2020 | on | NEPHROLOGY [place] | Naomi Seo | sent to [facility] for | | | | [address] | Sign Language Translator | patients PCP | | | | [address] [place] [address] | | confirmation | | | | [place], [place] | | received) | | | | [address] | | | | | | [phone] | | | +--------+ + + + [...] [place] | | | | | | [address] | | | | | | (Fax) | | +--------+---------+ + + + documented as of this encounter Visit Diagnoses Not on filedocumented in this encounter"
--- OUTSIDE RECORDS SUMMARY | ~2019-10-05 | XMS | Encounter Summary ---
Demographics + + + | Address | [address] [facility] | | | [place] [address] | + + + | Home Phone [...] Team Providers + +------+ + | Care Dynamo Repairer Name | Role | Phone | + +------+ + | Benny James MD | PCP | | + +------+ + Encounter Details +--------+ + + + + | Date | Type | Department | Care Team | Description | +--------+ + + + + | 07/27/ | Orders Only | [facility] | Art, | | | 2019 | | NEPHROLOGY [place] | Naomi Seo | | | | | [address] [place] | Fishing Rod Mechanic | | | | | [address] [place] | | | | | | [address] | | | | | | [phone] | | | +--------+ + + + [...] 2020 | Visit | | [address] [facility] | | | | | | [address] [place], [place] | | | | | | [address] | | | | | | | [...] 1.001 - 1.030 | | | | [place], | | | | | | Urine [...]
--- OUTSIDE RECORDS SUMMARY | ~2019-10-05 | XMS | Encounter Summary ---
Demographics + + + | Address | [address] [facility] | | | [place] [address] | + + + | Home Phone [...] Team Providers + +------+ + | Care Graduate Student Instructor Name | Role | Phone | + +------+ + PCP | Unavailable | + +------+ + Encounter Details +--------+ + + + + | Date | Type | Department | Care Team | Description | +--------+ + + + + | 04/28/ | Hospital | [facility] | Niharika Hsieh | | | 2006 | Encounter | HOSPITAL EMERGENCY | MD [address] | | | | | [place] [address] | [address] [place], | | | | | [address] [place], [place] | [place] [address] | | | | | [address] | [phone] | | | | | [phone] | | | +--------+ + + + [...] 2020 | Visit | | [address] [facility] | | | | | | [address] [place], [place] | | | | | | [address] | | | | | | | | +--------+---------+ + + + documented as of this encounter Visit Diagnoses Not on filedocumented in this encounter"
--- OUTSIDE RECORDS SUMMARY | ~2019-10-05 | XMS | Encounter Summary ---
Demographics + + + | Address | [address] [facility] | | | [place] [address] | + + + | Home Phone [...] + + + | Author | [facility] | | | and [place] | + + + | Organization | [facility] | | | [...] Team Providers + +------+ + | Care Wardrobe Manager Name | Role | Phone | [...] | | | [address] | [place] [address] | | | | | [place], [place] | [phone] | | | | | [address] | | | | | | [phone] | | | +--------+ + + + [...] 2020 | Visit | | [address] [facility] | | | | | | [address] [place] | | | | | | [address] | | | | | | | | +--------+---------+ + + + documented as of this encounter Visit Diagnoses Not on filedocumented in this encounter"
--- OUTSIDE RECORDS SUMMARY | ~2019-10-05 | XMS | Encounter Summary ---
Demographics + + + | Address | [address] [facility] | | | [place] [address] | + + + | Home Phone [...] Team Providers + +------+ + | Care Splunk Architect Name | Role | Phone | + +------+ + PCP | Unavailable | + +------+ + Encounter Details +--------+ + + + + | Date | Type | Department | Care Team | Description | +--------+ + + + + | 07/27/ | Hospital | [facility] | Yon Jc MD | | | 2011 | Encounter | HOSPITAL EMERGENCY | | | | | | [address] | | | | | | [address] [place], [place] | | | | | | [address] | | | | | | [phone] | | | +--------+ + + + [...] 2020 | Visit | | [address] [facility] | | | | | | [address] [place] | | | | | | [address] | | | | | | | | +--------+---------+ + + + documented as of this encounter Visit Diagnoses Not on filedocumented in this encounter"
--- OUTSIDE RECORDS SUMMARY | ~2019-10-05 | XMS | Clinical Summary ---
Demographics + + + | Address | [address] [facility] | | | [place] [address] | + + + | Home Phone [...] Team Providers + +------+ + | Care Cement Mason Name | Role | Phone | + [...] | | Naomi Seo | sent to [place] for | | | | | Pulper Tender | patients PCP | | | | [...] | | | | | ([facility]); Nephrotic | | | | | [...] | | | | | ([facility]) (Primary Dx); | | | | | | 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, 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 | | | | | | use of insulin | | | | | | ([facility]); Essential | | | | | [...] Medical | | | | | | Pulper Tender | | +--------+ + + + + | 07/27/ | Orders Only | Nephrology | Art, | | | 2019 | | | Naomi Seo | | | | | | Pulper Tender | | +--------+ + + + + [...] [place] | | | | | | [address] | | | | | | | [...] 1.001 - 1.030 | | | | [place], | | | | | | Urine [...] +--------+-------+---------+--------+ | [employer] [place] | [place] | [id number] | 08/02/19 | | | Indemn | | | CHOICE | | 20-Pre | | | ity | | | PC3 | | sent | | | | + +--------+ +--------+-------+---------+--------+ | [employer] | [place] | [id number] | 08/02/19 | | | Indemn | | | NS | | 20-Pre | | | ity | | | ADMIN | | sent | | | | | | [place] | | | | | | | [place] | | | | | | + +--------+ +--------+-------+---------+--------+ | [place] | [id number] | | | | Indemn | | [...] [place] | | | 7 (Home) | [address] | + +--------+ +--------+ + + | Lizet Mcneil | Person | Self [birth year] | [address] | | | al/Fam | | 1951 | [phone] | [address] [place] | | | [place] | | | [address] (Home) | [address] | + +--------+ +--------+ + + Advance Directives + + + + + | Type | Date Recorded | Patient | Explanation | | | | Coal Equipment Operator | | + + + + + | Power of | | | | | Top Ironer | | | | + + + + + | Advance | | | | | Directive | | | | + + + + +
--- OUTSIDE RECORDS SUMMARY | ~2019-10-05 | XMS | Encounter Summary ---
Demographics + + + | Address | [address] [facility] | | | [place] [address] | + + + | Home Phone [...] Team Providers + +------+ + | Care Superintendent Greens Name | Role | Phone | + +------+ + | Lizet Oliva | PCP | | + +------+ + Encounter Details +--------+ + + + + | Date | Type | Department | Care Team | Description | +--------+ + + + + | 08/02/ | Orders Only | [facility] | Matty Bingham MD | Essential | | 2020 | | NEPHROLOGY [place] | [address] [place] | hypertension | | | | [address] | [address] [place], [place] | (Primary Dx); CKD | | | | [address] [place] [address] | [address] | (chronic kidney | | | | [place], [place] | | disease) stage 4, | | | | [address] | | GFR 15-29 ml/min | | | | [phone] | | (HCC); Nephrotic | | | [...] 2020 | Visit | | [address] [facility] | | | | | | [address] [place] | | | | | | [address] | | | | | | | [...] ml/min | | | | | | ([facility]) Nephrotic | | | | [...] ml/min | | | | | | ([facility]) Nephrotic | | | | [...] ml/min | | | | | | ([facility]) Nephrotic | | | | [...] ml/min | | | | | | ([facility]) Nephrotic | | | | [...]
--- OUTSIDE RECORDS SUMMARY | ~2019-10-05 | XMS | Encounter Summary ---
Demographics + + + | Address | [address] [address] [facility] | | | [place] [address] | + + + | Home Phone | | + + + | Preferred Language | Unknown | + + + | Marital Status | Unknown | + + + | Mormon Affiliation | Unknown | + + + [...] Providers + +------+ + | Care Computer Numeric Control Setter Name | Role | Phone | [...] | | | | stage 4 | [place] | [address] | | | | | (severe) | [address] | [place] | | | | | (HCC) | [place] | [address] | | | | | | [address] | Phone: | | | | | | Phone: | [phone] | | | | | | [phone] | Fax: | | | | | | Fax: | [phone] | | | | | | [phone] | | + +--------+ + + + + Encounter Details +--------+---------+ + + + | Date | Type | Department | Care Team | Description | +--------+---------+ + + + | 08/01/ | Office | [facility] | Matty Bingham MD | CKD (chronic kidney | | 2020 | Visit | NEPHROLOGY [place] | [address] [place] | disease) stage 4, | | | | [address] | [address] [place], [place] | GFR 15-29 ml/min | | | | [address] | [id number] | (HCC) (Primary Dx); | | | | [place], [place] | | Type 2 diabetes | | | | [address] | | mellitus with | | | | [phone] | | diabetic | | | | | | nephropathy, 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 | | | | | | use of insulin | | | | | | ([facility]); Essential | | | | [...] intact PTH, uric acid, urinalysis, Urine total orxyeac-so-pzqq tinine ratio before she comes back in [...] CENTER) 07/28/2019 Hypertension 07/28/2019 Nicotine dependence 07/28/2019 No [...] file Gets together: Not on file Attends jewish service: Not on file Active member of [...] No components found for: MICROALBUR Assessment: Ms. Mcniel is a 68 y.o. female patient with [...] intact PTH, uric acid, urinalysis, Urine total fshixyg-rk-flgv tinine ratio before she comes back in [...] 2019 | Visit | | [address] [facility] | | | | | | 160 [place], [place] | | | | | | [address] | | | | | | | | +--------+---------+ + + + documented as of this encounter Visit Diagnoses + + | Diagnosis | + + | CKD (chronic kidney disease) stage 4, GFR 15-29 ml/min ([facility]) - Primary Chronic kidney | | disease, Stage IV (severe) | + + | Type 2 diabetes mellitus with diabetic nephropathy, with long-term current use of | | insulin ([facility]) | + + | Essential hypertension Unspecified essential hypertension | + + | Tobacco abuse Tobacco use disorder | + + | Nephrotic range proteinuria Proteinuria | + + | Persistent proteinuria Proteinuria | + + documented in this encounter
--- OUTSIDE RECORDS SUMMARY | ~2019-10-05 | XMS | Encounter Summary ---
Demographics + + + | Address | [address] [facility] | | | [place] [address] | + + + | Home Phone | | + + + | Preferred Language | Unknown | + + + | Marital Status | Unknown | + + + | Catholic Affiliation | Unknown | + + [...] Team Providers + +------+ + | Care Photovoltaic Panel Installer Name | Role | Phone | + +------+ + PCP | Unavailable | + +------+ + Encounter Details +--------+ + + + + | Date | Type | Department | Care Team | Description | +--------+ + + + + | 11/13/ | Hospital | [facility] | | | | 2006 | Encounter | MED CTR XRAY [address] | | | | | | [address] | | | | | | [place] [address] | | | | | | [phone] | | | +--------+ + + + [...] [place] | | | | | | [address] | | | | | | (Fax) | | +--------+---------+ + + + documented as of this encounter Visit Diagnoses Not on filedocumented in this encounter"
--- OUTSIDE RECORDS SUMMARY | ~2019-10-05 | XMS | Encounter Summary ---
Demographics + + + | Address | [address] [facility] | | | [place] [address] | + + + | Home Phone [...] Author | [facility] [...] Team Providers + +------+ + | Care Inside Sales Engineer Name | Role | Phone | [...] | [address] | [place] [address] | | | | | [place], [place] | [phone] | | | | | [address] | | | | | | [phone] | | | +--------+ + + + [...] 2020 | Visit | | [address] [facility] | | | | | | [address] [place] | | | | | | [address] | | | | | | | | +--------+---------+ + + + documented as of this encounter Visit Diagnoses Not on filedocumented in this encounter"
--- OUTSIDE RECORDS SUMMARY | ~2019-10-05 | XMS | Encounter Summary ---
Demographics + + + | Address | [address] [facility] | | | [place] [address] | + + + | Home Phone [...] Team Providers + +------+ + | Care Discharge Coordinator Name | Role | Phone | [...] [address] | | | | | | [place], [place] | (Fax) | | | | | [address] | | | | | | [phone] | | | +--------+ + + + [...] | | | | | | [address] [place], [place] | | | | | | [address] | | | | | | | | +--------+---------+ + + + documented as of this encounter Visit Diagnoses Not on filedocumented in this encounter"
--- OUTSIDE RECORDS SUMMARY | ~2019-10-05 | XMS | Encounter Summary ---
Demographics + + + | Address | [address] [facility] [address] [facility] [address] [facility] | | | [place] [address] | + + + | Home Phone [...] Team Providers + +------+ + | Care Creosoting Engineer Name | Role | Phone | [...] + + | 07/28/ | Documentati | [facility] | [place], | Results (07/28/19) | | 2020 | on | NEPHROLOGY [place] | Gab[facility] | | | | | [address] | Numerical Control Lathe Operator | | | | | [address] [place], [place] | | | | | | [address] | | | | | | [phone] | | | +--------+ + + + [...] 2019 | Visit | | [address] [facility] | | | | | | [facility] | | | | | | [address] | | | | | | | [...] 1.001 - 1.030 | | | | [place], | | | | | | Urine [...]
--- OUTSIDE RECORDS SUMMARY | ~2019-10-05 | XMS | Encounter Summary ---
Demographics + + + | Address | [address] [facility] | | | [place] [address] | + + + | Home Phone [...] Team Providers + +------+ + | Care Nail Setter Name | Role | Phone | [...] | | | [address] | [place] [address] | | | | | [place], [place] | [phone] | | | | | [address] | | | | | | [phone] | | | +--------+ + + + [...] | | | | | | [address] [place] | | | | | | [address] | | | | | | | | +--------+---------+ + + + documented as of this encounter Visit Diagnoses Not on filedocumented in this encounter"
--- OUTSIDE RECORDS SUMMARY | ~2019-10-05 | XMS | Encounter Summary ---
Demographics + + + | Address | [address] [facility] | | | [place] [address] | + + + | Home Phone [...] Organization | [facility] [...] Team Providers + +------+ + | Care Shellfish Harvester Name | Role | Phone | + +------+ + | Lizet Oliva | PCP | | + +------+ + Reason for Visit +--------+ + | Reason | Comments | +--------+ + | Other | Signed letter sent to [place] for patients PCP confirmation received | +--------+ + Encounter Details +--------+ + + + + | Date | Type | Department | Care Team | Description | +--------+ + + + + | 09/01/ | Documentati | [facility] | Art, | Other (Signed letter | | 2020 | on | NEPHROLOGY [place] | Naomi Seo | sent to [place] for | | | | [address] | Jig Boring Machine Set Up Operator | patients PCP | | | | [address] | | confirmation | | | | [place], [place] | | received) | | | | [address] | | | | | | [phone] | | | +--------+ + + + [...] [place] | | | | | | [address] | | | | | | (Fax) | | +--------+---------+ + + + documented as of this encounter Visit Diagnoses Not on filedocumented in this encounter"
--- OUTSIDE RECORDS SUMMARY | ~2019-10-05 | XMS | Encounter Summary ---
Demographics + + + | Address | [address] [facility] [address] [facility] [address] [facility] | | | [place] [address] | + + + | Home Phone | | + + + | Preferred Language | Unknown | + + + | Marital Status | Unknown | + + + | Yazdanism Affiliation | Unknown | + + + [...] Team Providers + +------+ + | Care Packer Name | Role | Phone | [address] | | | | | | [place], [place] | | | | | | [address] | | | | | | [phone] | | | +--------+ + + + [...] 2020 | Visit | | [address] [facility] | | | | | | [address] [place] | | | | | | [address] | | | | | | | | +--------+---------+ + + + documented as of this encounter Visit Diagnoses Not on filedocumented in this encounter"
--- OUTSIDE RECORDS SUMMARY | ~2019-10-05 | XMS | Encounter Summary ---
Demographics + + + | Address | [address] [facility] | | | [place] [address] | + + + | Home Phone [...] Team Providers + +------+ + | Care Jockey Room Custodian Name | Role | Phone | [...] + + | 07/28/ | Documentati | [facility] | [place], | Results (07/28/19) | | 2020 | on | NEPHROLOGY [place] | Gab[address] [facility] | | | | | [address] | Flake Or Shred Roll Operator | | | | | [address] [place], [place] | | | | | | [address] | | | | | | [phone] | | | +--------+ + + + [...] 2019 | Visit | | [address] [facility] | | | | | | [facility] | | | | | | [address] | | | | | | | [...] 1.001 - 1.030 | | | | [place], | | | | | | Urine [...]
--- OUTSIDE RECORDS SUMMARY | ~2019-10-05 | XMS | Encounter Summary ---
Demographics + + + | Address | [address] [facility] [address] [facility] | | | [place] [address] | + + + | Home Phone [...] + + | Author | [facility] | | | and [place] | + + + | Organization | [facility] | | | and [...] Team Providers + +------+ + | Care Rv Body Mechanic Name | Role | Phone | [...] | Encounter | CONVERSION | MD [address]anie [address] | | | | | [address] | [address] | | | | | [address] | [place] [address] | | | | | [place], [place] | [phone] | | | | | [address] | | | | | | [phone] | | | +--------+ + + + [...] | | | | | | [address] [place] | | | | | | [address] | | | | | | | | +--------+---------+ + + + documented as of this encounter Visit Diagnoses Not on filedocumented in this encounter"
--- OUTSIDE RECORDS SUMMARY | ~2019-10-05 | XMS | Encounter Summary ---
Demographics + + + | Address | [address] [facility] | | | [place] [address] | + + + | Home Phone [...] Team Providers + +------+ + | Care Conventions Reservationist Name | Role | Phone | + +------+ + PCP | Unavailable | + +------+ + Encounter Details +--------+ + + + + | Date | Type | Department | Care Team | Description | +--------+ + + + + | 11/24/ | Hospital | [facility] GENERIC OP | Maximilian Benoit | | | 2007 | Encounter | CONVERSION | MD [address]anie [address] | | | | | [address] | [address] | | | | | [address] | [place] [address] | | | | | [place], [place] | [phone] | | | | | [address] | | | | | | [phone] | | | +--------+ + + + [...] 2020 | Visit | | [address] [facility] | | | | | | [address] [place] | | | | | | [address] | | | | | | | | +--------+---------+ + + + documented as of this encounter Visit Diagnoses Not on filedocumented in this encounter"
--- OUTSIDE RECORDS SUMMARY | ~2019-10-05 | XMS | Encounter Summary ---
Demographics + + + | Address | [address] [facility] | | | [place] [address] | + + + | Home Phone [...] + + + | Author | [facility] | | | and [place] | + + + | Organization | [facility] | | | [...] Team Providers + +------+ + | Care Vocal Teacher Name | Role | Phone | [...] | Encounter | CONVERSION | MD [address]anie [address] | | | | | [address] | [address] | | | | | [address] | [place] [address] | | | | | [place], [place] | [phone] | | | | | [address] | | | | | | [phone] | | | +--------+ + + + [...] 2020 | Visit | | [address] [facility] | | | | | | [address] [place] | | | | | | [address] | | | | | | | | +--------+---------+ + + + documented as of this encounter Visit Diagnoses Not on filedocumented in this encounter"
--- OUTSIDE RECORDS SUMMARY | ~2019-10-05 | XMS | Encounter Summary ---
Demographics + + + | Address | [address] [facility] | | | [place] [address] | + + + | Home Phone [...] Team Providers + +------+ + | Care Tub Puller Name | Role | Phone | + +------+ + PCP | Unavailable | + +------+ + Encounter Details +--------+ + + + + | Date | Type | Department | Care Team | Description | +--------+ + + + + | 11/28/ | Hospital | [facility] GENERIC OP | Maximilian Benoit | | | 2008 | Encounter | CONVERSION | MD [address] | | | | | [address] | [address] | | | | | [address] | [place] [address] | | | | | [place], [place] | [phone] | | | | | [address] | | | | | | [phone] | | | +--------+ + + + [...] 2020 | Visit | | [address] [facility] | | | | | | [address] [place] | | | | | | [address] | | | | | | | | +--------+---------+ + + + documented as of this encounter Visit Diagnoses Not on filedocumented in this encounter"
--- OUTSIDE RECORDS SUMMARY | ~2019-10-05 | XMS | Encounter Summary ---
Demographics + + + | Address | [address] [facility] [address] [facility] | | | [place] [address] | + + + | Home Phone | | + + + | Preferred Language | Unknown | + + + | Marital Status | Unknown | + + + | Yarsanism Affiliation | Unknown | + + + [...] Team Providers + +------+ + | Care Blueprint Duplicator Name | Role | Phone | + [...] [address] | | | | | | [place], [place] | | | | | | [address] | | | | | | [phone] | | | +--------+ + + + [...] | Visit | | [address] [facility] | | | | | | [address] [place] | | | | | | [address] | | | | | | | | +--------+---------+ + + + documented as of this encounter Visit Diagnoses Not on filedocumented in this encounter"
--- OUTSIDE RECORDS SUMMARY | ~2019-10-05 | XMS | Encounter Summary ---
Demographics + + + | Address | [address] [facility] | | | [place] [address] | + + + | Home Phone [...] Team Providers + +------+ + | Care National Accounts Sales Name | Role | Phone | + +------+ + PCP | Unavailable | + +------+ + Encounter Details +--------+ + + + + | Date | Type | Department | Care Team | Description | +--------+ + + + + | 01/17/ | Hospital | [facility] | Maximilian Benoit | | | 2008 | Encounter | HOSPITAL XRAY [address] | MD Beth[address] | | | | | [address] | [address] | | | | | [place] | [facility] [address] | | | | | [address] | [phone] | | | | | [phone] | | | +--------+ + + + [...] | [address] [facility] | | | | | | [address] [place] | | | | | | [address] | | | | | | | | +--------+---------+ + + + documented as of this encounter Visit Diagnoses Not on filedocumented in this encounter"
--- OUTSIDE RECORDS SUMMARY | ~2019-10-05 | XMS | Encounter Summary ---
Demographics + + + | Address | [address] [facility] [address] [facility] | | | [place] [address] | + + + | Home Phone [...] Team Providers + +------+ + | Care Cake Cutter Machine Name | Role | Phone | + +------+ + PCP | Unavailable | + +------+ + Encounter Details +--------+ + + + + | Date | Type | Department | Care Team | Description | +--------+ + + + + | 08/11/ | Hospital | [facility] | Aníbal Self | | | 2011 | Encounter | HOSPITAL EMERGENCY | MD [address] | | | | | [address] | | | | | [address] [place], [place] | [place], [place] | | | | | [address] | [address] | | | | | [phone] | [phone] | | | | | | | [...] | | | | | | [address] [place] | | | | | | [address] | | | | | | | | +--------+---------+ + + + documented as of this encounter Visit Diagnoses Not on filedocumented in this encounter"
--- OUTSIDE RECORDS SUMMARY | ~2019-10-05 | XMS | Encounter Summary ---
Demographics + + + | Address | [address] [facility] | | | [place] [address] | + + + | Home Phone | | + + + | Preferred Language | Unknown | + + + | Marital Status | Unknown | + + + | Gnosticism Affiliation | Unknown | + + + [...] Team Providers + +------+ + | Care Red Lead Burner Name | Role | Phone | [address] | | | | | | [place], [place] | | | | | | [address] | | | | | | [phone] | | | +--------+ + + + [...] [place] | | | | | | [address] | | | | | | | | +--------+---------+ + + + documented as of this encounter Visit Diagnoses Not on filedocumented in this encounter"
--- OUTSIDE RECORDS SUMMARY | ~2019-10-05 | XMS | Encounter Summary ---
Demographics + + + | Address | [address] [facility] [address] [facility] [address] [facility] | | | [place] [address] | + + + | Home Phone [...] Team Providers + +------+ + | Care Plumber Helper Name | Role | Phone | [address] | | | | | | [place], [place] | | | | | | [address] | | | | | | [phone] | | | +--------+ + + + [...] 2020 | Visit | | [facility] [address] [facility] | | | | | | [address] [place] | | | | | | [address] | | | | | | | | +--------+---------+ + + + documented as of this encounter Visit Diagnoses Not on filedocumented in this encounter"
--- OUTSIDE RECORDS SUMMARY | ~2019-10-05 | XMS | Encounter Summary ---
Demographics + + + | Address | [address] [facility] | | | [place] [address] | + + + | Home Phone [...] Providers + +------+ + | Care Senior Benefits Analyst Name | Role | Phone | [...] | HOSPITAL XRAY [address] | MD [address] | | | | | [address] | [address] | | | | | [place] | [facility] [address] | | | | | [address] | [phone] | | | | | [phone] | | | +--------+ + + + [...] 2020 | Visit | | [address] [facility] | | | | | | [address] [place] | | | | | | [address] | | | | | | | | +--------+---------+ + + + documented as of this encounter Visit Diagnoses Not on filedocumented in this encounter"
--- OUTSIDE RECORDS SUMMARY | ~2019-10-05 | XMS | Encounter Summary ---
Demographics + + + | Address | [address] [facility] [address] [facility] [address] [facility] [address] | | | [place] [address] | + + + | Home Phone [...] Team Providers + +------+ + | Care Contact Center Director Name | Role | Phone | + +------+ + PCP | Unavailable | + +------+ + Encounter Details +--------+ + + + + | Date | Type | Department | Care Team | Description | +--------+ + + + + | 07/27/ | Hospital | [facility] | Yon Jc MD | | | 2011 | Encounter | HOSPITAL EMERGENCY | | | | | | [address] | | | | | | [address] [employer] [place], [place] | | | | | | [address] | | | | | | [phone] | | | +--------+ + + + [...] [place] | | | | | | [address] | | | | | | | | +--------+---------+ + + + documented as of this encounter Visit Diagnoses Not on filedocumented in this encounter"
[~2019-10-05 16:43] MED LIST changes: +CALCIUM 500 +1 EAC2 PO; +COZAAR50 MG PO; +LANTUS100 UNITS/ SUB-Q; +METOPROLOL TART25 MG PO; +NEURONTIN300 MG PO; +NOVOLOG FL100 UNIT/1 SUB-Q
--- OUTSIDE RECORDS SUMMARY | 2019-10-05 16:46 | XMS ---
PreManage Notification: SHARYN HAND Security Corporate Officer Events No recent Security Events currently on file CRITERIA MET - [facility] - 2 Visits in 30 Days CARE PROVIDERS SHARYN SNYDER ANN Nurse Practitioner: Family 06/23/2018-Current PHONE: [phone] Godfrey has no Care Guidelines for this patient. Care History Medical/Surgical 07/13/2019 [facility] - PATIENT IS A AND RECEIVED SERVICES AT THE [facility] . 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 - PATIENT PCP HAS NOT RECEIVED RECORDS FROM RECENT ED VISITS-[facility] CONTACTED MEDICAL RECORDS AND PROVIDED FAX NUMBER TO HAVE RECENT ED RECORDS SENT FOR FOLLOW UP-PCP WILL BE IN CONTACT WITH PATIENT. ECordelia VISIT COUNT (12 MO.) [address] [place] [address] TOTAL 4 NOTE: Visits indicate total known visits. ED/UCC VISIT TRACKING (12 MO.) 10/05/2019 16:44 [facility] [place] TYPE: Emergency COMPLAINT: - DIZZINESS/SOB 09/17/2019 06:53 [facility] [place] TYPE: Emergency COMPLAINT: - BLOOD PRESSURE PROBLEM, JAW PAIN NON INJURY 07/10/2019 15:33 [facility] [place] TYPE: Emergency COMPLAINT: - HURT BOTH FEET FALLING DIAGNOSES: - Pain in left foot - Unspecified sprain of left foot, initial encounter - Type 2 diabetes mellitus without complications - Pain in left foot - Unspecified sprain of right foot, initial encounter - Sprain of unspecified ligament of left ankle, initial encount - Nicotine dependence, unspecified, uncomplicated - Exposure to other specified factors, initial encounter - Sprain of unspecified ligament of right ankle, initial encoun - Essential (primary) hypertension 06/30/2019 16:01 [facility] [place] TYPE: Emergency COMPLAINT: - RIGHT ELBOW PAIN DIAGNOSES: - Allergy status to other drugs, medicaments and biological sub - Nicotine dependence, unspecified, uncomplicated - Pain in right elbow - Allergy status to sulfonamides status - Exposure to other specified factors, initial encounter - oil heaterman (current) use of aspirin - Type 2 diabetes mellitus without complications - Allergy status to other antibiotic agents status - Other custodial (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 - Other bursitis of elbow, right elbow - Unspecified sprain of right elbow, initial encounter INPATIENT VISIT TRACKING (12 MO.) 09/17/2019 06:54 [facility] [place] TYPE: Observation COMPLAINT: - NEW ONSET AFIB RVR DIAGNOSES: - Acute kidney failure, unspecified - oil heaterman (current) use of oral hypoglycemic drugs - Chronic kidney disease, unspecified - Hypertensive chronic kidney disease with stage 1 through stag - Unspecified atrial fibrillation - Palpitations - Allergy status to sulfonamides status - intermediate (current) use of aspirin - Type 2 diabetes mellitus with diabetic nephropathy - Other custodial (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 - Type 2 diabetes mellitus with diabetic chronic kidney disease - Allergy status to other drugs, medicaments and biological sub - Nicotine dependence, unspecified, uncomplicated - Allergy status to other antibiotic agents status [email or web address]
--- NOTE | 2019-10-07 15:54 | EKG ---
[facility] [address] [facility] [place] [address] Signed Atrial fibrillation with rapid ventricular response Rightward axis T wave abnormality, consider inferolateral ischemia Abnormal ECG When compared with ECG of 17-SEP-2019 07:01, T wave inversion now evident in Lateral leads Confirmed by RODRIGO WALL MD (255) on 10/07/2019 3:54:22 PM Electronically Signed By: RODRIGO WALL MD 10/07/19 1554 PATIENT NAME: DENNISE DAIGLESHARYN Electrocardiogram DATE OF : 48 PHYSICIAN: RODRIGO WALL MD REPORT #: [id number] REPORT IS CONFIDENTIAL AND NOT TO BE RELEASED WITHOUT AUTHORIZATION
--- NOTE | 2019-10-07 15:55 | EKG ---
[facility] [address] [facility] [place] [address] Signed Normal sinus rhythm Rightward axis Abnormal QRS-T angle, consider primary T wave abnormality Abnormal ECG When compared with ECG of 05-OCT-2019 16:55, (Unconfirmed) Sinus rhythm has replaced Atrial fibrillation T wave inversion less evident in Inferior leads T wave inversion no longer evident in Lateral leads Confirmed by RODRIGO WALL MD (255) on 10/07/2019 3:54:49 PM Electronically Signed By: RODRIGO WALL MD 10/07/19 1555 PATIENT NAME: SHARYN HAND Electrocardiogram DATE OF : 48 PHYSICIAN: RODRIGO WALL MD REPORT #: [id number] REPORT IS CONFIDENTIAL AND NOT TO BE RELEASED WITHOUT AUTHORIZATION
== END 2019-10-05 21:12 | disposition short-term general hospital (02) ==
LOC: ED 16:43
DX: I48.0 Paroxysmal atrial fibrillation (principal); I10 Essential (primary) hypertension; I48.91 Unspecified atrial fibrillation; E11.9 Type 2 diabetes mellitus without complications; F17.200 Nicotine dependence, unspecified, uncomplicated; Z88.2 Allergy status to sulfonamides; Z88.1 Allergy status to other antibiotic agents; Z79.4 Long term (current) use of insulin; Z79.899 Other long term (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
CPT/HCPCS: 80053; 83735; 84484; 85025; 93005; 93010; 99285-25

== ENCOUNTER 2019-10-20 21:40 | Inpatient (IN) | payer MEDICARE, OTHER ==
[~2019-10-20] VITALS: Ht 167.6 cm; Wt 77.6 kg
--- OUTSIDE RECORDS SUMMARY | ~2019-10-20 | XMS | Encounter Summary ---
Demographics + + + | Address | [address] [facility] | | | [place] [address] | + + + | Home Phone | | + + + | Preferred Language | Unknown | + + + | Marital Status | Unknown | + + + | Cheondoism Affiliation | Unknown | + + + | Race | Unknown | + + + | Ethnic Group | Unknown | + + + Author + + + | Author | [facility] | | | and [place] | + + + | Organization | [facility] | | | [...] Team Providers + +------+ + | Care Birth Certificate Clerk Name | Role | Phone | + +------+ + PCP | Unavailable | + +------+ + Encounter Details +--------+ + + + + | Date | Type | Department | Care Team | Description | +--------+ + + + + | 11/09/ | Hospital | [facility] | Blanca Almarza | | | 2007 | Encounter | CONVERSION | Krystal MALDONADO | | | | | DEPARTMENT [address] | | [address] | | | | | | [place], [place] | | | | | | [address] | | | | | | [phone] | | | +--------+ + + + [...] 2020 | [facility] | | [address] [facility] | | | | | | [address] [place] | | | | | | [address] | | | | | | | | +--------+---------+ + + + documented as of this encounter Visit Diagnoses Not on filedocumented in this encounter"
--- OUTSIDE RECORDS SUMMARY | ~2019-10-20 | XMS | Encounter Summary ---
Demographics + + + | Address | [address] [facility] | | | [place] [address] | + + + | Home Phone | | + + + | Preferred Language | Unknown | + + + | Marital Status | Unknown | + + + | Zoroastrian Affiliation | Unknown | + + + | Race | Unknown | + + + | Ethnic Group | Unknown | + + + Author + + + | Author | [facility] | | | and [place] | + + + | Organization | [facility] | | | [...] Team Providers + +------+ + | Care Store Specialist Name | Role | Phone | + +------+ + | Lizet Oliva | PCP | | + +------+ + Encounter Details +--------+ + + + + | Date | Type | Department | Care Team | Description | +--------+ + + + + | 08/02/ | Orders Only | [facility] | Matty Bingham MD | Essential | | 2020 | | NEPHROLOGY [place] | [address] [place] | hypertension | | | | [address] | [address] [place], [place] | (Primary Dx); CKD | | | | [address] [place] [address] | [address] | (chronic kidney | | | | [place], [place] | | disease) stage 4, | | | | [address] | | GFR 15-29 ml/min | | | | [phone] | | (HCC); 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; | | | | | | Persistent | | | | | | proteinuria | +--------+ + + + + Social [...] 2020 | Visit | | [address] [facility] | | | | | | [address] [place] | | | | | | [address] | | | | | | | | +--------+---------+ + + + + +---------+--------+ + + | Name | Type | Priori | Associated Diagnoses | Order Schedule | | | | ty | | | + +---------+--------+ + + | Basic Metabolic | Lab | Routin | Essential | Expected: | | Panel | | e | hypertension CKD | 08/09/2019, Expires: | | | | | (chronic kidney | 08/02/2020 | | | | | disease) stage 4, | | | | | | GFR 15-29 ml/min | | | | | | (HCC) 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 | | | | | | Persistent | | | | | | proteinuria | | + +---------+--------+ + + | Immunoglobulin, Free | Lab | Routin | Essential | Expected: | | Light Chain | | e | hypertension CKD | 08/09/2019, Expires: | | | | | (chronic kidney | 08/02/2020 | | | | | disease) stage 4, | | | | | | GFR 15-29 ml/min | | | | | | ([facility]) 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 | | | | | | Persistent | | | | | | proteinuria | | + +---------+--------+ + + | Immunofixation, | Lab | Routin | Essential | Expected: | | Serum | | e | hypertension CKD | 08/09/2019, Expires: | | | | | (chronic kidney | 08/02/2020 | | | | | disease) stage 4, | | | | | | GFR 15-29 ml/min | | | | | | ([facility]) 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 | | | | | | Persistent | | | | | | proteinuria | | + +---------+--------+ + + | US Renal Complete | Imaging | Routin | Essential | Expected: | | | | e | hypertension CKD | 08/05/2019, Expires: | | | | | (chronic kidney | 08/02/2020 | | | | | disease) stage 4, | | | | | | GFR 15-29 ml/min | | | | | | ([facility]) 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 | | | | | | Persistent | | | | | | proteinuria | | + +---------+--------+ + + | Renal Function Panel | Lab | Routin | Essential | Expected: | | | | e | hypertension CKD | 11/03/2019, Expires: | | | | | (chronic kidney | 08/02/2020 | | | | | disease) stage 4, | | | | | | GFR 15-29 ml/min | | | | | | ([facility]) 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 | | | | | | Persistent | | | | | | proteinuria | | + +---------+--------+ + + | CBC with | Lab | Routin | Essential | Expected: | | Differential | | e | hypertension CKD | 11/03/2019, Expires: | | | | | (chronic kidney | 08/02/2020 | | | | | disease) stage 4, | | | | | | GFR 15-29 ml/min | | | | | | (HCC) 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 | | | | | | Persistent | | | | | | proteinuria | | + +---------+--------+ + + | Parathyroid Hormone, | Lab | Routin | Essential | Expected: | | Intact | | e | hypertension CKD | 11/03/2019, Expires: | | | | | (chronic kidney | 08/02/2020 | | | | | disease) stage 4, | | | | | | GFR 15-29 ml/min | | | | | | (HCC) 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 | | | | | | Persistent | | | | | | proteinuria | | + +---------+--------+ + + | Uric Acid | Lab | Routin | Essential | Expected: | | | | e | hypertension CKD | 11/03/2019, Expires: | | | | | (chronic kidney | 08/02/2020 | | | | | disease) stage 4, | | | | | | GFR 15-29 ml/min | | | | | | (HCC) 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 | | | | | | Persistent | | | | | | proteinuria | | + +---------+--------+ + + | Urinalysis With | Lab | Routin | Essential | Expected: | | Microscopic | | e | hypertension CKD | 11/03/2019, Expires: | | | | | (chronic kidney | 08/02/2020 | | | | | disease) stage 4, | | | | | | GFR 15-29 ml/min | | | | | | (HCC) 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 | | | | | | Persistent | | | | | | proteinuria | | + +---------+--------+ + + | Protein/Creatinine | Lab | Routin | Essential | Expected: | | Ratio, Urine | | e | hypertension CKD | 11/03/2019, Expires: | | | | | (chronic kidney | 08/02/2020 | | | | | disease) stage 4, | | | | | | GFR 15-29 ml/min | | | | | | (HCC) 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 | | | | | | Persistent | | | | | | proteinuria | | + +---------+--------+ + + documented as of this encounter Visit Diagnoses + + | Diagnosis | + + | Essential hypertension - Primary Unspecified essential hypertension | + + | CKD (chronic kidney disease) stage 4, GFR 15-29 ml/min (HCC) Chronic kidney disease, | | Stage IV (severe) | + + | Nephrotic range proteinuria Proteinuria | + + | Persistent proteinuria Proteinuria | + + documented in this encounter"
--- OUTSIDE RECORDS SUMMARY | ~2019-10-20 | XMS | Encounter Summary ---
Demographics + + + | Address | [address] [facility] | | | [place] [address] | + + + | Home Phone | | + + + | Preferred Language | Unknown | + + + | Marital Status | Unknown | + + + | Protestant Affiliation | Unknown | + + + | Race | Unknown | + + + | Ethnic Group | Unknown | + + + Author + + + | Author | [facility] | | | and [place] | + + + | Organization | [facility] | | | [...] Team Providers + +------+ + | Care Newspaper Columnist Name | Role | Phone | + +------+ + PCP | Unavailable | + +------+ + Encounter Details +--------+ + + + + | Date | Type | Department | Care Team | Description | +--------+ + + + + | 11/28/ | Hospital | [facility] GENER[facility] OP | Maximilian Benoit | | | 2008 | Encounter | CONVERSION | MD [address] | | | | | [address] | [place] | | | | | [address] | [place] [address] | | | | | [place] | [phone] | | | | | [address] | | | | | | [phone] | | | +--------+ + + + [...] 2020 | Visit | | [address] [facility] | | | | | | [address] [place] | | | | | | [address] | | | | | | | | +--------+---------+ + + + documented as of this encounter Visit Diagnoses Not on filedocumented in this encounter"
--- OUTSIDE RECORDS SUMMARY | ~2019-10-20 | XMS | Encounter Summary ---
Demographics + + + | Address | [address] [facility] | | | [place] [address] | + + + | Home Phone | | + + + | Preferred Language | Unknown | + + + | Marital Status | Unknown | + + + | Episcopalian Affiliation | Unknown | + + + | Race | Unknown | + + + | Ethnic Group | Unknown | + + + Author + + + | Author | [facility] | | | and [place] | + + + | Organization | [facility] | | | [...] Providers + +------+ + | Care Lead Oxide Mill Tender Name | Role | Phone | + +------+ + PCP | Unavailable | + +------+ + Encounter Details +--------+ + + + + | Date | Type | Department | Care Team | Description | +--------+ + + + + | 01/17/ | Hospital | [facility] | Maximilian Benoit | | | 2008 | Encounter | HOSPITAL XRAY [address] | MD [address] | | | | | [address] | [address] | | | | | [place] | [facility] [address] | | | | | [address] | [phone] | | | | | [phone] | | | +--------+ + + + [...] 2020 | Visit | | [address] [facility] | | | | | | [address] [place] | | | | | | [address] | | | | | | | | +--------+---------+ + + + documented as of this encounter Visit Diagnoses Not on filedocumented in this encounter"
--- OUTSIDE RECORDS SUMMARY | ~2019-10-20 | XMS | Encounter Summary ---
Demographics + + + | Address | [address] [facility] | | | [place] [address] | + + + | Home Phone | | + + + | Preferred Language | Unknown | + + + | Marital Status | Unknown | + + + | Yarsani Affiliation | Unknown | + + + | Race | Unknown | + + + | Ethnic Group | Unknown | + + + Author + + + | Author | [facility] | | | and [place] | + + + | Organization | [facility] | | | [...] Team Providers + +------+ + | Care Employment Advisor Name | Role | Phone | + +------+ + PCP | Unavailable | + +------+ + Encounter Details +--------+ + + + + | Date | Type | Department | Care Team | Description | +--------+ + + + + | 07/27/ | Hospital | [facility] | Yon Jc MD | | | 2011 | Encounter | HOSPITAL EMERGENCY | | | | | | [address] | | | | | | [address] [place], [place] | | | | | | [address] | | | | | | [phone] | | | +--------+ + + + [...] 2020 | [facility] | | [address] [facility] | | | | | | [address] [place] | | | | | | [address] | | | | | | | | +--------+---------+ + + + documented as of this encounter Visit Diagnoses Not on filedocumented in this encounter"
--- OUTSIDE RECORDS SUMMARY | ~2019-10-20 | XMS | Encounter Summary ---
Demographics + + + | Address | [address] [facility] | | | [place] [address] | + + + | Home Phone | | + + + | Preferred Language | Unknown | + + + | Marital Status | Unknown | + + + | Judaism Affiliation | Unknown | + + + | Race | Unknown | + + + | Ethnic Group | Unknown | + + + Author + + + | Author | [facility] | | | and [place] | + + + | Organization | [facility] | | | [...] Team Providers + +------+ + | Care Debt Collection Specialist Name | Role | Phone | + +------+ + | Lizet Oliva | PCP | | + +------+ + Encounter Details +--------+--------+ + + + | Date | Type | Department | Care Team | Description | +--------+--------+ + + + | 10/04/ | Intake | [facility] | | N/A | | 2019 | | [address] | | | | | | [address] | | | | | | [place] | | | | | | [address] | | | | | | [phone] | | | +--------+--------+ + + + Social History + +--------+ [...] 2019 | Visit | | [address] [facility] | | | | | | [address] [place] | | | | | | [address] | | | | | | | | +--------+---------+ + + + documented as of this encounter Visit Diagnoses Not on filedocumented in this encounter"
--- OUTSIDE RECORDS SUMMARY | ~2019-10-20 | XMS | Encounter Summary ---
Demographics + + + | Address | [address] [facility] [address] | | | [place] [address] | + + + | Home Phone | | + + + | Preferred Language | Unknown | + + + | Marital Status | Unknown | + + + | Sabianism Affiliation | Unknown | + + + | Race | Unknown | + + + | Ethnic Group | Unknown | + + + Author + + + | Author | [facility] | | | and [place] | + + + | Organization | [facility] | | | [...] Team Providers + +------+ + | Care Transmitter Supervisor Name | Role | Phone | + +------+ + | Lizet Oliva | PCP | | + +------+ + Encounter Details +--------+ + + + + | Date | Type | Department | Care Team | Description | +--------+ + + + + | 09/09/ | Lab | [facility] | Oliva, Rachel | Age-related | | 2018 | Requisition | [facility] | [address] | osteoporosis with | | | | [address] | [place] | current pathological | | | | [place] | [place] | fracture of right | | | | [address] | [address] | forearm | | | | [phone] | [phone] | | | | | | | [...] 2020 | Visit | | [address] [facility] | | | | | | [address] [place], [place] | | | | | | [address] | | | | | | | [...] Quantitativ | under wrong submitter. | | [facility] | | | e | This quantitative [...] wrong submitter | [facility] | | | [facility] | | | [facility] | | | - LABORATORY | + + + + + + + + | Performing | Address | City/State/Zipcode | Phone Number | | Organization | | | | + + + + + | [facility] | [address] | [place] | [phone] | | [facility] | | [address] | | | - LABORATORY | | | | + + + + + documented in this encounter Visit Diagnoses + + | Diagnosis | + + | Age-related osteoporosis with current pathological fracture of right forearm Senile | | osteoporosis | + + documented in this encounter"
--- OUTSIDE RECORDS SUMMARY | ~2019-10-20 | XMS | Encounter Summary ---
Demographics + + + | Address | [address] [facility] | | | [place] [address] | + + + | Home Phone | | + + + | Preferred Language | Unknown | + + + | Marital Status | Unknown | + + + | Restorationism Affiliation | Unknown | + + + | Race | Unknown | + + + | Ethnic Group | Unknown | + + + Author + + + | Author | [facility] | | | and [place] | + + + | Organization | [facility] | | [...] Team Providers + +------+ + | Care Macadam Raker Name | Role | Phone | + +------+ + | Benny James MD | PCP | | + +------+ + Reason for Visit +---------+ + | Reason | Comments | +---------+ + | Results | 07/28/19 | +---------+ + Encounter Details +--------+ + + + + | Date | Type | Department | Care Team | Description | +--------+ + + + + | 07/28/ | Documentati | [facility] | [place], | Results (07/28/19) | | 2020 | on | NEPHROLOGY [place] | [facility] | | | | | [address] | [address] [address] | | | | | [address] [place], [place] | | | | | | [address] | | | | | | [phone] | | | +--------+ + + + [...] 2019 | Visit | | [address] [facility] | | | | | | [facility] | | | | | | [address] | | | | | | | | +--------+---------+ + + + documented as of this encounter Procedures + +--------+ + + + | Procedure Name | Priori | Date/Time | Associated Diagnosis | Comments | | | ty | | | | + +--------+ + + + | CBC NO DIFFERENTIAL | Routin | 07/28/2019 | | Results for this | | | e | | | procedure are in the | | | | | | results section. | + +--------+ + + + | PROTEIN/CREATININE | Routin | 07/28/2019 | | Results for this | | RATIO, URINE | e | | | procedure are in the | | | | | | results section. | + +--------+ + + + | URINALYSIS | Routin | 07/28/2019 | | Results for this | | | e | | | procedure are in the | | | | | | results section. | + +--------+ + + + | URIC ACID | Routin | 07/28/2019 | | Results for this | | | e | | | procedure are in the | | | | | | results section. | + +--------+ + + + | BASIC METABOLIC | Routin | 07/28/2019 | | Results for this | | PANEL | e | | | procedure are in the | | | | | | results section. | + +--------+ + + + documented in this encounter Results Urinalysis (07/28/2019) + + + + + + | Component | Value | Ref Range | Performed | Pathologist | | | | | At | Signature | + + + + + + | Color | yellow | | | | + + + + + + | Clarity | Clear | | | | + + + + + + | Specific | 1.014 | 1.001 - 1.030 | | | | [place], | | | | | | Urine | | | | | + + + + + + | pH, Urine | 7.0 | 5.0 - 8.0 | | | + + + + + + | Protein, | 100 mg/dL (A) | Negative | | | | Urine | | | | | + + + + + + | Glucose, | Positive (A) | Negative | | | | [...] + + + + | Blood, | Negative | Negative | | | [...] + + + + | Bacteria, | 1 | | | | | UA | | | | | + + + + + + + + | Specimen | + + | Urine | + + CBC with Manual Differential (07/28/2019) + + + + + + | Component | Value | Ref Range | Performed | Pathologist | | | | | At | Signature | + + + + + + | WBC | 6.7 | 4.5 - 11.0 | | | + + + + + + | RBC | 4.34 | 3.80 - 5.10 | | | | | | M/uL | | | + + + + + + | Hemoglobin | 12.2 | 12 - 16 | | | + + + + + + | Hematocrit, | 35.8 | 35.0 - 45.0 % | | | | POC | | | | | + + + + + + | MCV | 82.6 | 81.0 - 99.0 fL | | | + + + + + + | MCH | 28.0 | 27.0 - 33.0 pg | | | + + + + + + | MCHC | 34.0 | 30.0 - 36.0 | | | | | | g/dL | | | + + + + + + | Platelet | 255 | 140 - 440 | | | | Count | | | | | | Plasma | | | | | + + + + + + | RDW | 15.8 (A) | 10.5 - 15.0 | | | + + + + + + | BAL | 53 | 39 - 80 % | | | | Neutrophils | | | | | | % | | | | | + + + + + + | % | 35 | 24 - 44 | | | | Lymphocytes | | | | | + + + + + + | Monocyte % | 7.3 | 0 - 12 | | | + + + + + + | BAL | 3 | 0 - 6 % | | | | Eosinophils | | | | | | % | | | | | + + + + + + | BF % | 1 | 0 - 2 % | | | | Basophils | | | | | + + + + + + + + | Specimen | + + | Blood | + + Basic Metabolic Panel (07/28/2019) + + + + + + | Component | Value | Ref Range | Performed | Pathologist | | | | | At | Signature | + + + + + + | Na | 142 | 132 - 143 | | | | | | mmol/L | | | + + + + + + | K | 4.1 | 3.6 - 5.1 | | | | | | mmol/L | | | + + + + + + | Cl | 104 (A) | 19 - 31 mmol/L | | | + + + + + + | CO2 | 31 | 19 - 31 mmol/L | | | + + + + + + | Anion Gap | 11 | 7 - 21 mmol/L | | | + + + + + + | Glucose | 113 (A) | 70 - 100 mg/dL | | | + + + + + + | BUN | 41 (A) | 6 - 23 mg/dL | | | + + + + + + | Creatinine | 2.12 (A) | 0.70 - 1.25 | | | | | | mg/dL | | | + + + + + + | Estimated | 23.0 (A) | 60.0 - 140.0 | | | | GFR | | mL/min/1.73m2 | | | + + + + + + | BUN/Creatin | 19.3 | 6.0 - 28.6 | | | | ine Ratio | | | | | + + + + + + | Calcium | 8.6 | 8.5 - 10.3 | | | + + + + + + + + | Specimen | + + | Blood | + + Protein/Creatinine Ratio, Urine (07/28/2019) + + + + + + | Component | Value | Ref Range | Performed | Pathologist | | | | | At | Signature | + + + + + + | Protein/Cre | 6,323.3 (A)Comment: | 0 - 150 | | | | at Ratio | Urine total protein is | | | | | | markedly elevated, a | | | | | | dilution was required. | | | | + + + + + + + + | Specimen | + + | Urine | + + Uric Acid (07/28/2019) + +---------+ + + + | Component | Value | Ref Range | Performed | Pathologist | | | | | At | Signature | + +---------+ + + + | Uric Acid | 7.3 (A) | 2.3 - 6.6 | | | + +---------+ + + + + + | Specimen | + + | Blood | + + documented in this encounter Visit Diagnoses Not on filedocumented in this encounter"
--- OUTSIDE RECORDS SUMMARY | ~2019-10-20 | XMS | Encounter Summary ---
Demographics + + + | Address | [address] [facility] | | | [place] [address] | + + + | Home Phone | | + + + | Preferred Language | Unknown | + + + | Marital Status | Unknown | + + + | Pentecostalism Affiliation | Unknown | + + + [...] Team Providers + +------+ + | Care Burn Nurse Name | Role | Phone | + +------+ + | Benny James MD | PCP | | + +------+ + Encounter Details +--------+ + + + + | Date | Type | Department | Care Team | Description | +--------+ + + + + | 07/23/ | Orders Only | [facility] | Matty Bingham MD | Chronic kidney | | 2020 | | NEPHROLOGY [place] | [address] [place] | disease, stage IV | | | | [address] [place] | [address] [facility] [place] | (severe) (HCC) | | | | [address] [place], [place] | [address] | (Primary Dx) | | | | [address] | | | | | | [phone] | | | +--------+ + + + [...] 2019 | Visit | | [address] [facility] [place] | | | | | | [address] [place], [place] | | | | | | [address] | | | | | | | [...] Expires: | | | | | (severe) ([facility]) | 07/23/2020 | + +------+--------+ + + | Urinalysis With | Lab | Routin | Chronic kidney | Expected: | | Microscopic | | e | disease, stage IV | 07/26/2019, Expires: | | | | | (severe) ([facility]) | 07/23/2020 | + +------+--------+ + + [...]
--- OUTSIDE RECORDS SUMMARY | ~2019-10-20 | XMS | Encounter Summary ---
Demographics + + + | Address | [address] [facility] | | | [place] [address] | + + + | Home Phone [...] Team Providers + +------+ + | Care Lithographic Platemaker Name | Role | Phone | + +------+ + | Lizet Oliva | PCP | | + +------+ + Encounter Details +--------+ + + + + | Date | Type | Department | Care Team | Description | +--------+ + + + + | 09/09/ | Lab | [facility] | Oliva, Rachel | Age-related | | 2018 | Requisition | [facility] | [address] | osteoporosis with | | | | [address] | [place] | current pathological | | | | [place] | [place] | fracture of right | | | | [address] | [address] | forearm | | | | [phone] | [phone] | | | | | | | [...] 2020 | Visit | | [address] [facility] | | | | | | [address] [place], [place] | | | | | | [address] | | | | | | | [...] Quantitativ | under wrong submitter. | | [facility] | | | e | This quantitative [...] wrong submitter | [facility] | | | [facility] | | | [facility] | | | - LABORATORY | + + + + + + + + | Performing | Address | City/State/Zipcode | Phone Number | | Organization | | | | + + + + + | [facility] | [address] | [place] | [phone] | | [facility] | | [address] | | | - LABORATORY | | | | + + + + + documented in this encounter Visit Diagnoses + + | Diagnosis | + + | Age-related osteoporosis with current pathological fracture of right forearm Senile | | osteoporosis | + + documented in this encounter"
--- OUTSIDE RECORDS SUMMARY | ~2019-10-20 | XMS | Encounter Summary ---
Demographics + + + | Address | [address] [facility] [address] | | | [place] [address] | + + + | Home Phone | | + + + | Preferred Language | Unknown | + + + | Marital Status | Unknown | + + + | Mandaeism Affiliation | Unknown | + + + | Race | Unknown | + + + | Ethnic Group | Unknown | + + + Author + + + | Author | [facility] | | | and [place] | + + + | Organization | [facility] | | [...] Team Providers + +------+ + | Care Tip Scourer Name | Role | Phone | + +------+ + | Lizet Oliva | PCP | | + +------+ + Encounter Details +--------+ + + + + | Date | Type | Department | Care Team | Description | +--------+ + + + + | 09/09/ | Lab | [facility] | Oliva, Rachel | Age-related | | 2018 | Requisition | [facility] | JOEL White 76 | osteoporosis with | | | | [address] | [place] | current pathological | | | | [place] | [place] | fracture of right | | | | [address] | [address] | forearm | | | | [phone] | [phone] | | | | | | | [...] 2020 | Visit | | [address] [facility] | | | | | | 160 [place], [place] | | | | | | [address] | | | | | | | [...] Quantitativ | under wrong submitter. | | [facility] | | | e | [...] wrong submitter | [facility] | | | [facility] | | | [facility] | | | - LABORATORY | + + + + + + + + | Performing | Address | City/State/Zipcode | Phone Number | | Organization | | | | + + + + + | [facility] | [address] | [place] | [phone] | | [facility] | | [address] | | | - LABORATORY | | | | + + + + + documented in this encounter Visit Diagnoses + + | Diagnosis | + + | Age-related osteoporosis with current pathological fracture of right forearm Senile | | osteoporosis | + + documented in this encounter"
--- OUTSIDE RECORDS SUMMARY | ~2019-10-20 | XMS | Clinical Summary ---
Demographics + + + | Address | [address] [facility] [address] | | | [place] [address] | + + + | Home Phone | | + + + | Preferred Language | Unknown | + + + | Marital Status | Unknown | + + + | Samaritan Affiliation | Unknown | + + + | Race | Unknown | + + + | Ethnic Group | Unknown | + + + Author + + + | Author | [facility] | | | and [place] | + + + | Organization | [facility] | | [...] Team Providers + +------+ + | Care Senior Data Developer Name | Role | Phone | + [...] 0 | | | Activ | | (NEURONTIN) 300 mg | 2 times daily. | | | | | e | | capsule | | | | | | | [...] | | | | | | | [id number] 2 | | | | | | | | [id number]= 3 | | | | | | | | [id number]= 4 | | | | | | [...] | 90 | 1 | 05/1 | 06/1 | Activ | | tartrate (LOPRESSOR) | mouth 2 times daily | tablet | | 4/20 | 3/20 | e | | 25 mg tablet | for 30 days. | | | 20 | 20 | | + + + +---------+------+------+-------+ | pramipexole | Take 1 tablet by | 30 | 0 | 05/1 | 06/1 | Activ | | (MIRAPEX) 0.125 MG | mouth Daily for 30 | tablet | | 5/20 | 4/20 | e | | tablet | days. | | | 20 | 20 | | + + + +---------+------+------+-------+ | warfarin | Take 1 tablet by | 7 | 0 | 05/1 | | Activ | | (COUMADIN) 5 mg | mouth every evening. | tablet | | 4/20 | | e | | tablet | | | | 20 | | | + + + +---------+------+------+-------+ | fluconazole | Take 150 mg by mouth | | 0 | | 05/1 | Disco | | (DIFLUCAN) 150 mg | once. | | | | 3/20 | ntinu | | tablet | | | | | 20 | ed | | | | | | | | (Ther | | | | | | | | apy | | | | | | | | compl | | | | | | | | eted) | + + + +---------+------+------+-------+ | insulin glargine | Inject 45 Units | | 0 | | 05/1 | Disco | | (LANTUS) 100 | under the skin | | | | 4/20 | ntinu | | units/mL injection | nightly. | | | | 20 | ed | | (vial) | | | | | | | + + + +---------+------+------+-------+ | aspirin 81 mg EC | Take 81 mg by mouth | | 0 | | 05/1 | Disco | | tablet | Daily. | | | | 4/20 | ntinu | | | | | | | 20 | ed | + + + +---------+------+------+-------+ | metoprolol | Take 25 mg by mouth | | 0 | 01/0 | 05/1 | Disco | | tartrate (LOPRESSOR) | 2 times daily. | | | 5/20 | 4/20 | ntinu | | 25 mg tablet | | | | 20 | 20 | ed | | | | | | | | (Reor | | | | | | | | misbah) | + + + +---------+------+------+-------+ | glipiZIDE | Take 10 mg by mouth | | 0 | | 05/1 | Disco | | (GLUCOTROL) 10 MG | 2 times daily | | | | 4/20 | ntinu | | tablet | (before meals). | | | | 20 | ed | | | | | | | | (Ther | | | | | | | | apy | | | | | | | | compl | | | | | | | | eted) | + + + +---------+------+------+-------+ | amLODIPine | Take 5 mg by mouth | | 0 | | 05/1 | Disco | | (NORVASC) 10 MG | Daily. | | | | 4/20 | ntinu | | tablet | | | | | 20 | ed | | | | | | | | (Ther | | | | | | | | apy | | | | | | | | compl | | | | | | | | eted) | + + + +---------+------+------+-------+ | pregabalin | Take 25 mg by mouth | | 0 | | 05/1 | Disco | | (LYRICA) 25 mg | 2 times daily. | | | | 3/20 | ntinu | | capsule | | | | | 20 | ed | | | | | | | | (Ther | | | | | | | | apy | | | | | | | | compl | | | | | | | | eted) | + + + +---------+------+------+-------+ | losartan (COZAAR) | Take 1 tablet by | 180 | 3 | 03/0 | 05/1 | Disco | | 50 mg tablet | mouth 2 times daily. | tablet | | 9/20 | 4/20 | ntinu | | | | | | 20 | 20 | ed | | | | | | | | (Ther | | | | | | | | apy | | | | | | | | compl | | | | | | | | eted) | + + + +---------+------+------+-------+ Active Problems + + + | Problem | Noted Date | + + + | Acute heart failure with preserved ejection fraction | 10/06/2019 | + + + | Atrial fibrillation with RVR | 10/05/2019 | + + + | Tobacco abuse | [...] - | Encounter | | | fibrillation ([facility]); | | | | | | Atrial fibrillation | | 10/06/ | | | | with RVR ([facility]); | | 2019 | | | | Acute heart failure | | | | | | with preserved | | | | | | ejection fraction | | | | | | ([facility]); CKD (chronic | | | | | | kidney disease) | | | | | | stage 4, GFR 15-29 | | | | | | ml/min ([facility]); | | | | | | Tobacco abuse | +--------+ + + + + | 10/04/ | Intake | | | N/A | | 2019 | | | | | +--------+ + + + + | 09/01/ | Documentati | Nephrology | [place], | Other (Signed letter | 2019 | on | | Naomi Seo | sent to [place] for | | | | | Naval Engineer | patients PCP | | | | | | confirmation | | | | | | received) | +--------+ + + + + | 09/01/ | Telephone | Nephrology | Matty Bingham MD | Pain | | 2019 | | | | | +--------+ + + + + | 08/03/ | Telephone | Nephrology | Matty Bingham MD | Other (RBC ua | 2019 | | | | result) | +--------+ + + + + | 08/02/ | Orders Only | Nephrology | Matty Bingham MD | Essential | 2019 | | | | hypertension | | | | | | (Primary Dx); CKD | | | | | | (chronic kidney | | | | | | disease) stage 4, | | | | | | GFR 15-29 ml/min | | | | | | ([facility]); 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; | | | | | | Persistent | | | | | | proteinuria | +--------+ + + + + | 08/01/ | Office | Nephrology | Matty Bingham MD | CKD (chronic kidney | | 2020 | Visit | | | disease) stage 4, | | | | | | GFR 15-29 ml/min | | | | | | ([facility]) (Primary Dx); | | | | | | 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, 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 | | | | | | use of insulin | | | | | | ([facility]); Essential | | | | | | hypertension; | | | | | | Tobacco abuse; | | | | | | 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; | | | | | | Persistent | | | | | | proteinuria | +--------+ + + + + | 07/28/ | Documentati | Nephrology | Art, | Results (07/28/19) | | 2020 | on | | Naomi Seo | | | | | | Naval Engineer | | +--------+ + + + + | 07/27/ | Orders Only | Nephrology | Art, | | | 2019 | | | Naomi Seo | | | | | | Naval Engineer | | +--------+ + + + + | 07/23/ | Orders Only | Nephrology | Matty Bingham MD | Chronic kidney | | 2019 | | | | disease, stage IV | | | | | | (severe) (HCC) | | | | | | (Primary Dx) | +--------+ + + + + from [...] | | TRIVALENT(PED/ADOL/A | | | | DULT)CHEY | | | + + + + [...] recent travel history available. | + + Last Filed Vital Signs + + + + + | Vital Sign | Reading | Time Taken | Comments | + + + + + | Blood Pressure | 132/69 | 10/07/2019 11:40 AM | | | | | PDT | | + + + + + | Pulse | 62 | 10/07/2019 11:40 AM | | | | | PDT | | + + + + + | Temperature | 36.1 C (97 F) | 10/07/2019 7:36 AM | | | | | PDT | | + + + + + | Respiratory Rate | 18 | 10/07/2019 11:40 AM | | | | | PDT | | + + + + + | Oxygen Saturation | 95% | 10/07/2019 11:40 AM | | | | | PDT | | + + + + + | Inhaled Oxygen | - | - | | | Concentration | | | | + + + + + | Weight | 83.3 kg (183 lb 10.3 | 10/06/2019 12:01 AM | | | | oz) | PDT | | + + + + + | Height | 167.6 cm (5' 6") | 10/05/2019 10:05 PM | | | | | PDT | | + + + + + | Body Mass Index | 29.64 | 10/05/2019 10:05 PM | | | | | PDT | | + + + + + Plan of Treatment +--------+---------+ + + + | Date | Type | Specialty | Care Team | Description | +--------+---------+ + + + | 11/07/ | Office | Nephrology | Matty Bingham MD | | | 2019 | Visit | | [address] [facility] | | | | | | [facility] | | | | | | [address] | | | | | | | | +--------+---------+ + + + + + + + + | Health Maintenance | Due Date | Last Done | Comments | + + + + [...] + + | Hemoglobin A1c | | 04/29/2019 | | | Screening | 0 | | | + + + + + | Vaccine: | | 06/28/2013 | | | Dtap/Tdap/Td (2 - | 4 | | | | Td) | | | | + + + + + | Vaccine: | Completed | 03/04/2017, 03/07/2015, | | | Pneumococcal 65+ | | 03/21/2008, Additional history | | | | | exists | | + + + + + | Vaccine: Influenza | Completed | 01/29/2019, 03/10/2018, | | | | | 03/04/2017, Additional history | | | | | exists | | + + + + + | Vaccine: Zoster | Completed | 01/29/2019, 04/15/2018 | | + + + + + [...] | LABS - EXTERNAL SCAN | | 07/28/2019 | | Results for this | | | | 12:00 AM | | procedure are in the | | | | PST | | results section. | + +--------+ [...] + + from Last 3 Months Results ECG - EXTERNAL SCAN (10/13/2019 12:00 AM [...] | | Time | | seconds | [facility] | | [facility] | | | | | | C[facility] - | | | | | | LABORATORY | | + + + + + + | INR | 0.9Comment: Usual Oral | 0.9 - 1.1 | [facility] | | | | Anticoagulation Range: | | [facility] | | | | 2.0 - 3.0High [...] [address] | [place] | [phone] | | [facility] | | [address] | | | - LABORATORY | | [...] (H) | 70 - 109 mg/dL | [facility] | | | POC | | | [...] | + + + + + | [facility] | [address] | [place] | [phone] | | [facility] | | [address] | | | - LABORATORY | | [...] 6.3 | 4.0 - 11.0 K/uL | [facility] | | | | | | [facility] | | | | | | MEDICAL | | | | | | CENTER - | | | | | | LABORATORY | | + + + + + + | RBC | 3.79 | 3.70 - 5.20 | [facility] | | | | | M/uL | [facility] | | | | [...] + | [facility] | [address] | [place] | [phone] | | [facility] | | [address] | | | - LABORATORY | | [...] 2.1 | 1.6 - 2.6 mg/dL | [facility] | | | | | | [facility] | | | | | | [...] + | [facility] | [address] | [place] | [phone] | | [facility] | | [address] | | | - LABORATORY | | | | + + + + + Basic Metabolic Panel (10/07/2019 5:44 AM PDT)Only the most recent of 4 results within the time period is included. [...] | | rerun and verified. | | [facility] | | | | | | MEDICAL | | | | | | CENTER - | | | | | | LABORATORY | | + + + + + + | Glucose | 98 | 60 - 106 mg/dL | [facility] | | | | | | [facility] | | | | | | MEDICAL | | | | | | CENTER - | | | | | | LABORATORY | | + + + + + + | BUN | 47 (H) | 9 - 23 mg/dL | [facility] | | | | | | [facility] | | | | | | MEDICAL | | | | | | CENTER - | | | | | | LABORATORY | | + + + + + + | Creatinine | 2.68 (H) | 0.55 - 1.02 | [facility] | | | | | mg/dL | [facility] | | | | | | MEDICAL | | | | | | CENTER - | | | | | | LABORATORY | | + + + + + + | eGFR if not | 18 (L)Comment: | >=60 | [facility] | | | | GLOMERULAR FILTRATION | mL/min/1.73m2 | [facility] | | | FILIPINO | RATE,ESTIMATED | | MEDICAL | | | | mL/min/1.91m3Mzhg than | | CENTER - | | [...] | 9.9 | 8.7 - 10.4 | [facility] | | | | | mg/dL | [facility] | | | | | | MEDICAL [...] [address] | [place] | [phone] | | [facility] | | [address] | | | - LABORATORY | | [...] | | | | | | n [place] | | | | | + +--------+ [...] (TTE) Demographics Patient Name | | | [facility] Room [facility] | | | [facility] Patient Number [id number] Date of Study | | | 10/06/2019 Visit Number [id number] Referring | | | Physician ORVILLE FULTON | | | Admissions Manager MARY STEPHENS RDCS Number Date of | | | 1950 Interpreting ELADIA RODRIGES MD | | | Physician Age | | | 69 year(s) Nurse Gender Female | | | Stress Aircraft Instrument Tester Procedure Type of Study TTE | | | procedure:ECHO Complete. Procedure DateDate: 10/06/2019 Start: 02:51 | | | PM Study Location: [facility] Quality: Adequate visualization | | | Indications:Atrial [...] | | | | Electronically signed by ELADIA RODRIGES MD (Interpreting physician) on | | | [...] | [place], Rad Results In - 10/06/2019 5:21 PM PDT Transthoracic Echocardiography Report | | (TTE) Demographics Patient Name [facility] Room Number 321 | | [facility] Patient Number [id number] Date of Study 10/06/2019 Visit | | Number [id number] Referring Physician ORVILLE FULTON Accession | | [id number] Admissions Manager MARY STEPHENS AMIRA Number Date of | | 1950 Interpreting ELADIA RODRIGES MD | | Physician Age 69 year(s) Nurse Gender Female | | Stress TechnicianProcedureType of Study TTE procedure:ECHO Complete.Procedure | | DateDate: 10/06/2019 Start: 02:51 PM[address] [facility]: [facility]quate | | visualizationIndications:Atrial fibrillation, unspecified [...] + + | Performing | Address | City/State/[facility] | Phone Number | | [...] | | | | | | [employer] | | | | | [...] [address] | [place] | [phone] | | [facility] | | [address] | | | - LABORATORY | | [...] | | | | | uIU/mL | [facility] | | | | | | MEDICAL [...] | + + + + + | [facility] | [address] | [place] | [phone] | | [facility] | | [address] | | | - LABORATORY | | [...] 1,607 (H)Comment: New | <100 pg/mL | [facility] | | | | method in use as of | | [facility] | | | | July 22, 2018. [...] ST. | [address] | [place] | [phone] | | [facility] | | [address] | | | - LABORATORY | | [...] | Abdoul Vides Results In - 10/06/2019 7:21 AM PDT [...] + +---------+ + + ECG 12 lead (10/05/2019 10:38 PM PDT) + + + + + + | Component | Value | Ref Range | Performed | Pathologist | | | | | At | Signature | + + + + + + | VENTRICULAR | 101 | BPM | [facility] | | | RATE EKG | | | | | + + + + + + | QRS | 96 | ms | [facility] | | | DURATION | | | | | + + + + + + | Q-T | 348 | ms | [facility] | | | INTERVAL | | | | | + + + + + + | Q-T | 451 | ms | [facility] | | | INTERVAL | | | | | | (CORRECTED) | | | | | + + + + + + | QRS AXIS | 87 | degrees | [facility] | | + + + + + + | T AXIS | -55 | degrees | [facility] | | + + + + + + | INTERPRETAT | Atrial fibrillation with | | [facility] | | | ION TEXT | rapid ventricular | | | | | | responseT wave | | | | | | abnormality, consider | | | | | | inferior | | | | | | ischemiaNonspecific T | | | | | | wave abnormality | | | | | | Anterolateral | | | | | | leadsAbnormal ECGNo | | | | | | previous ECGs | | | | | | availableConfirmed by | | | | | | JOSEPHINE STEVENS MD ([id number]) | | | | | | on 10/06/2019 6:26:09 AM | | | | + + [...] | | | + +---------+ + + LABS - EXTERNAL SCAN (07/28/2019 12:00 AM PST) + + + | Narrative | Performed At | + + + | Ordered by an | | | unspecified provider. | | + + + CBC with Manual Differential (07/28/2019) [...] + | Urine | + + Urinalysis (07/28/2019) + + + + + [...] 1.001 - 1.030 | | | | [place], | | | | | | Urine [...] + + | Blood | + + from Last 3 Months Insurance + +--------+ +--------+ +---------+--------+ | Payer | Benefi | Subscriber | Effect | Phone | Address | Type | | | t Plan | ID | iar | | | | | | / | | Dates | | | | | | Group | | | | | | + +--------+ +--------+ +---------+--------+ | [employer] [place] | [id number] | 08/02/19 | | | Indemn | | | COMMUN | | 20-Pre | | | ity | | | ITY | | sent | | | | | | CARE | | | | | | + +--------+ +--------+ +---------+--------+ | [employer] | [place] | [id number] | 08/02/19 | | | Indemn | | | NS | | 20-Pre | | | ity | | | ADMIN | | sent | | | | | | [place] | | | | | | | | [place] | | | | | | + +--------+ +--------+ +---------+--------+ | [employer] | [place] | [id number] | | | | Indemn | | | NS | | 006-Pr | | | ity | | | ADMIN | | esent | | | | | | [place] | | | | | | | | [place] | | | | | | + +--------+ +--------+ +---------+--------+ | [employer] | [place] | [id number] | | | | Indemn | | | COMMUN | | 016-Pr | | | ity | | | ITY | | esent | | | | | | CARE | | | | | | + +--------+ +--------+ +---------+--------+ | MEDICARE | MEDICA | [id number] | | [phone] | | Medica | [...] | | al/Fam | | 1951 | [phone] | [address] [place], [place] | | | [place]ardo | | | 7 (Home) | [address] | + +--------+ +--------+ + + | Lizet Mcneil | Person | Self [birth year] | [address] | | | al/Fam | | 1951 | [phone] | [address] [place], [place] | | | [place] | | | 7 (Home) | [phone] | + +--------+ +--------+ + + Advance Directives + + + + + | Type | Date Recorded | Patient | Explanation | | | | Second Butler | | + + + + + | Power of | | | | | Assisted Living Coordinator | | | | + + + [...]
--- OUTSIDE RECORDS SUMMARY | ~2019-10-20 | XMS | Encounter Summary ---
Demographics + + + | Address | [address] [facility] [address] | | | [place] [address] | + + + | Home Phone [...] Team Providers + +------+ + | Care Greaser Helper Name | Role | Phone | + [...] [address] | | | | | | [place], [place] | (Fax) | | | | | [address] | | | | | | [phone] | | | +--------+ + + + [...] Visit | | [address] [facility] [facility] | | | | | | [address] [place], [place] | | | | | | [address] | | | | | | | | +--------+---------+ + + + documented as of this encounter Visit Diagnoses Not on filedocumented in this encounter"
--- OUTSIDE RECORDS SUMMARY | ~2019-10-20 | XMS | Encounter Summary ---
Demographics + + + | Address | [address] [facility] [address] | | | [place] [address] | + + + | Home Phone [...] + + | Author | [facility] | | | and [place] | + + + | Organization | [facility] | | | [...] Team Providers + +------+ + | Care Computer Game Programmer Name | Role | Phone | + +------+ + PCP | Unavailable | + +------+ + Encounter Details +--------+ + + + + | Date | Type | Department | Care Team | Description | +--------+ + + + + | 11/13/ | Hospital | [facility] | | | | 2006 | Encounter | MED CTR XRAY [address] | | | | | [address] [place] | | | | | | [place] [address] | | | | | | [phone] | | | +--------+ + + + [...] 2020 | Visit | | [address] [place] | | | | | | [address] [place] | | | | | | [address] | | | | | | (Fax) | | +--------+---------+ + + + documented as of this encounter Visit Diagnoses Not on filedocumented in this encounter"
--- OUTSIDE RECORDS SUMMARY | ~2019-10-20 | XMS | Encounter Summary ---
Demographics + + + | Address | [address] [facility] [address] | | | [place] [address] | + + + | Home Phone | | + + + | Preferred Language | Unknown | + + + | Marital Status | Unknown | + + + | Congregation Affiliation | Unknown | + + + | Race | Unknown | + + + | Ethnic Group | Unknown | + + + Author + + + | Author | [facility] | | | and [place] | + + + | Organization | [facility] | | [...] Providers + +------+ + | Care Senior Applications Architect Name | Role | Phone | + [...] EMERGENCY | | | | | | [address] | | | | | | [address] [place], [place] | | | | | | [address] | | | | | | [phone] | | | +--------+ + + + [...] Visit | | [address] [facility] | | | | | | [address] [place] | | | | | | [address] | | | | | | | | +--------+---------+ + + + documented as of this encounter Visit Diagnoses Not on filedocumented in this encounter"
--- OUTSIDE RECORDS SUMMARY | ~2019-10-20 | XMS | Encounter Summary ---
Demographics + + + | Address | [address] [facility] | | | [place] [address] | + + + | Home Phone | | + + + | Preferred Language | Unknown | + + + | Marital Status | Unknown | + + + | Taoism Affiliation | Unknown | + + + | Race | Unknown | + + + | Ethnic Group | Unknown | + + + Author + + + | Author | [facility] | | | and [place] | + + + | Organization | [facility] | [...] Team Providers + +------+ + | Care Sweat Box Attendant Name | Role | Phone | + +------+ + PCP | Unavailable | + +------+ + Encounter Details +--------+ + + + + | Date | Type | Department | Care Team | Description | +--------+ + + + + | 11/28/ | Hospital | [facility] | Maximilian Benoit | | | 2008 | Encounter | CONVERSION | MD [address] | | | | [address] | [address] | | | [address] | [place] [address] | | | | | [place], [place] | [phone] | | | | | [address] | | | | | | [phone] | | | +--------+ + + + [...] 2020 | Visit | | [address] [facility] | | | | | | [address] [place] | | | | | | [address] | | | | | | | | +--------+---------+ + + + documented as of this encounter Visit Diagnoses Not on filedocumented in this encounter"
--- OUTSIDE RECORDS SUMMARY | ~2019-10-20 | XMS | Encounter Summary ---
Demographics + + + | Address | [address] [facility] | | | [place] [address] | + + + | Home Phone | | + + + | Preferred Language | Unknown | + + + | Marital Status | Unknown | + + + | Evangelical Affiliation | Unknown | + + + | Race | Unknown | + + + | Ethnic Group | Unknown | + + + Author + + + | Author | [facility] | | | and [place] | + + + | Organization | [facility] | | [...] Team Providers + +------+ + | Care Racecourse Barrier Attendant Name | Role | Phone | + +------+ + | Lizet Oliva | PCP | | + +------+ + Encounter Details +--------+--------+ + + + | Date | Type | Department | Care Team | Description | +--------+--------+ + + + | 10/04/ | Intake | [facility] | | N/A | | 2019 | | [address] | | | | | | [place] [address] | | | | | | [place] | | | | | | [phone] | | | | | | [phone] | | | +--------+--------+ + + + [...] | Visit | | [address] [facility] | | | | | | [address] | | | | | | [phone] | | | | | | | | +--------+---------+ + + + documented as of this encounter Visit Diagnoses Not on filedocumented in this encounter"
--- OUTSIDE RECORDS SUMMARY | ~2019-10-20 | XMS | Encounter Summary ---
Demographics + + + | Address | [address] [facility] | | | [place] [address] | + + + | Home Phone [...] Team Providers + +------+ + | Care Stab Setter And Driller Name | Role | Phone | + +------+ + | Lizet Oliva | PCP | | + +------+ + Encounter Details +--------+--------+ + + + | Date | Type | Department | Care Team | Description | +--------+--------+ + + + | 10/04/ | Intake | [facility] | | N/A | | 2019 | | [address] | | | | | | [address] | | | | | | [place] | | | | | | [address] | | | | | | [phone] | | | +--------+--------+ + + + [...] 2019 | Visit | | [address] [facility] | | | | | | [address] [place] | | | | | | [address] | | | | | | | | +--------+---------+ + + + documented as of this encounter Visit Diagnoses Not on filedocumented in this encounter"
--- OUTSIDE RECORDS SUMMARY | ~2019-10-20 | XMS | Encounter Summary ---
Demographics + + + | Address | [address] [facility] | | | [place] [address] | + + + | Home Phone [...] + + + | Author | [facility] | | | and [place] | + + + | Organization | [facility] | | | and [...] Team Providers + +------+ + | Care Reo Asset Manager Name | Role | Phone | [...] | Encounter | CONVERSION | MD Bethanie [address] | | | | | [address] | [address] | [address] | | [address] | [place] [address] | | | | | [place], [place] | [phone] | | | | | [address] | | | | | | [phone] | | | +--------+ + + + [...] 2020 | Visit | | [address] [facility] | | | | | | 160 [place] | | | | | | [address] | | | | | | | | +--------+---------+ + + + documented as of this encounter Visit Diagnoses Not on filedocumented in this encounter"
--- OUTSIDE RECORDS SUMMARY | ~2019-10-20 | XMS | Encounter Summary ---
Demographics + + + | Address | [address] [facility] | | | [place] [address] | + + + | Home Phone [...] Team Providers + +------+ + | Care Product Design Specialist Name | Role | Phone | + +------+ + | Lizet Oliva | PCP | | + +------+ + Reason for Visit +--------+ + | Reason | Comments | +--------+ + | Other | Signed letter sent to [place] for patients PCP confirmation received | +--------+ + Encounter Details +--------+ + + + + | Date | Type | Department | Care Team | Description | +--------+ + + + + | 09/01/ | Documentati | [facility] | Art, | Other (Signed letter | | 2020 | on | NEPHROLOGY [place] | Naomi Seo | sent to [place] for | | | | [address] | Screen Printer Helper | patients PCP | | | | [address] | | confirmation | | | | [place], [place] | | received) | | | | [address] | | | | | | [phone] | | | +--------+ + + + [...] | | | | | | [address] [place], [place] | | | | | | [address] | | | | | | (Fax) | | +--------+---------+ + + + documented as of this encounter Visit Diagnoses Not on filedocumented in this encounter"
--- OUTSIDE RECORDS SUMMARY | ~2019-10-20 | XMS | Encounter Summary ---
Demographics + + + | Address | [address] [facility] | | | [place] [address] | + + + | Home Phone | | + + + | Preferred Language | Unknown | + + + | Marital Status | Unknown | + + + | Buddhist Affiliation | Unknown | + + + [...] Team Providers + +------+ + | Care Equipment Detailer Name | Role | Phone | + +------+ + PCP | Unavailable | + +------+ + Encounter Details +--------+ + + + + | Date | Type | Department | Care Team | Description | +--------+ + + + + | 11/17/ | Hospital | [facility] | Maximilian Benoit | | | 2007 | Encounter | CONVERSION | MD Bethanie [address] | | | | | [address] | [address] | | | [address] | [place] [id number] | | | | | [place], [place] | [phone] | | | | | [address] | | | | | | [phone] | | | +--------+ + + + [...] 2020 | Visit | | [address] [facility] | | | | | | [address] [place] | | | | | | [address] | | | | | | | | +--------+---------+ + + + documented as of this encounter Visit Diagnoses Not on filedocumented in this encounter"
--- OUTSIDE RECORDS SUMMARY | ~2019-10-20 | XMS | Encounter Summary ---
Demographics + + + | Address | [address] [facility] | | | [place] [address] | + + + | Home Phone | | + + + | Preferred Language | Unknown | + + + | Marital Status | Unknown | + + + | Orthodox Affiliation | Unknown | + + + [...] Team Providers + +------+ + | Care Technical Director Name | Role | Phone | + +------+ + | Benny James MD | PCP | | + +------+ + Encounter Details +--------+ + + + + | Date | Type | Department | Care Team | Description | +--------+ + + + + | 07/23/ | Orders Only | [facility] | Matty Bingham MD | Chronic kidney | | 2020 | | NEPHROLOGY [place] | [address] [place] | disease, stage IV | | | | [address] [place] | [address] [facility] [place] | (severe) (HCC) | | | | [address] [place], [place] | [address] | (Primary Dx) | | | | [address] | | | | | | [phone] | | | +--------+ + + + [...] 2019 | Visit | | [address] [facility] [place] | | | | | | [address] [place], [place] | | | | | | [address] | | | | | | | [...] | | | | | (severe) ([facility]) | 07/23/2020 | + +------+--------+ + + | Urinalysis With | Lab | Routin | Chronic kidney | Expected: | | Microscopic | | e | disease, stage IV | 07/26/2019, Expires: | | | | | (severe) ([facility]) | 07/23/2020 | + +------+--------+ [...]
--- OUTSIDE RECORDS SUMMARY | ~2019-10-20 | XMS | Encounter Summary ---
Demographics + + + | Address | [address] [facility] | | | [place] [address] | + + + | Home Phone | | + + + | Preferred Language | Unknown | + + + | Marital Status | Unknown | + + + | Latter Day Affiliation | Unknown | + + + [...] Team Providers + +------+ + | Care Linotype Worker Name | Role | Phone | [...] + + | 07/28/ | Documentati | [facility] | [place], | Results (07/28/19) | | 2020 | on | NEPHROLOGY [place] | [facility] | | | | | [address] | Deli Worker | | | | | [address] [place], [place] | | | | | | [address] | | | | | | [phone] | | | +--------+ + + + [...] 2019 | Visit | | [address] [facility] | | | | | | [facility] | | | | | | [address] | | | | | | | [...] 1.001 - 1.030 | | | | [place], | | | | | | Urine [...]
--- OUTSIDE RECORDS SUMMARY | ~2019-10-20 | XMS | Encounter Summary ---
Demographics + + + | Address | [address] [facility] | | | [place] [address] | + + + | Home Phone | | + + + | Preferred Language | Unknown | + + + | Marital Status | Unknown | + + + | Baptist Affiliation | Unknown | + + + | Race | Unknown | + + + | Ethnic Group | Unknown | + + + Author + + + | Author | [facility] | | | and [place] | + + + | Organization | [facility] | | [...] Team Providers + +------+ + | Care Turnstile Attendant Name | Role | Phone | [...] | Encounter | CONVERSION | MD [address]anie [address] | | | | | [address] | [address] | | | | | [address] | [place] [address] | | | | | [place], [place] | [phone] | | | | | [address] | | | | | | [phone] | | | +--------+ + + + [...] 2020 | Visit | | [address] [facility] | | | | | | 160 [place] | | | | | | [address] | | | | | | | | +--------+---------+ + + + documented as of this encounter Visit Diagnoses Not on filedocumented in this encounter"
--- OUTSIDE RECORDS SUMMARY | ~2019-10-20 | XMS | Encounter Summary ---
Demographics + + + | Address | [address] [facility] | | | [place] [address] | + + + | Home Phone | | + + + | Preferred Language | Unknown | + + + | Marital Status | Unknown | + + + | Scientologist Affiliation | Unknown | + + + | Race | Unknown | + + + | Ethnic Group | Unknown | + + + Author + + + | Author | [facility] | | | and [place] | + + + | Organization | [facility] | | | [...] Team Providers + +------+ + | Care Electrician Control Equipment Name | Role | Phone | + +------+ + | Benny James MD | PCP | | + +------+ + Encounter Details +--------+ + + + + | Date | Type | Department | Care Team | Description | +--------+ + + + + | 07/27/ | Orders Only | [facility] | Art, | | | 2019 | | NEPHROLOGY [place] | Naomi Seo | | | | | [address] [place] | Poultry Farmer Egg | | | | | [address] [place] | | | | | | [address] | | | | | | [phone] | | | +--------+ + + + [...] 2020 | Visit | | [address] [facility] | | | | | | [address] [place], [place] | | | | | | [address] | | | | | | | [...] 1.001 - 1.030 | | | | [place], | | | | | | Urine [...]
--- OUTSIDE RECORDS SUMMARY | ~2019-10-20 | XMS | Encounter Summary ---
Demographics + + + | Address | [address] [facility] | | | [place] [address] | + + + | Home Phone | | + + + | Preferred Language | Unknown | + + + | Marital Status | Unknown | + + + | Lutheran Affiliation | Unknown | + + + | Race | Unknown | + + + | Ethnic Group | Unknown | + + + Author + + + | Author | [facility] | | | and [place] | + + + | Organization | [facility] | | [...] Team Providers + +------+ + | Care Bunch Breaker Name | Role | Phone | + [...] | | | | stage 4 | [place] [address] | | | | | (severe) | [address] | [place] | | | | | (HCC) | [place] | [address] | | | | | | [address] | Phone: | | | | | | Phone: | [phone] | | | | | | [phone] | Fax: | | | | | | Fax: | [phone] | | | | | | [phone] | | + +--------+ + + + + Encounter Details +--------+---------+ + + + | Date | Type | Department | Care Team | Description | +--------+---------+ + + + | 08/01/ | Office | [facility] | Matty Bingham MD | CKD (chronic kidney | | 2020 | Visit | NEPHROLOGY [place] | [address] [place] | disease) stage 4, | | | | [address] | [address] [place], [place] | GFR 15-29 ml/min | | | | [address] [place] [address] | [address] | (HCC) (Primary Dx); | | | | [place], [place] | | Type 2 diabetes | | | | [address] | | mellitus with | | | | [phone] | | diabetic | | | | | | nephropathy, 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 | | | | | | use of insulin | | | | | | ([facility]); Essential | | | | | | [...] intact PTH, uric acid, urinalysis, Urine total icqaixp-lb-axot tinine ratio before she comes back in [...] stage 4, GFR 15-29 ml/min ([facility]) 07/28/2019 Diabetes mellitus ([facility]) 07/28/2019 Hypertension 07/28/2019 Nicotine dependence 07/28/2019 No [...] file Gets together: Not on file Attends lutheran service: Not on file Active member of [...] intact PTH, uric acid, urinalysis, Urine total mzfuuyz-gx-erev tinine ratio before she comes back in [...] 2019 | Visit | | [address] [facility] | | | | | | 160 [place], [place] | | | | | | [address] | | | | | | | | +--------+---------+ + + + documented as of this encounter Visit Diagnoses + + | Diagnosis | + + | CKD (chronic kidney disease) stage 4, GFR 15-29 ml/min ([facility]) - Primary Chronic kidney | | disease, Stage IV (severe) | + + | Type 2 diabetes mellitus with diabetic nephropathy, with long-term current use of | | insulin ([facility]) | + + | Essential hypertension Unspecified essential hypertension | + + | Tobacco abuse Tobacco use disorder | + + | Nephrotic range proteinuria Proteinuria | + + | Persistent proteinuria Proteinuria | + + documented in this encounter
--- OUTSIDE RECORDS SUMMARY | ~2019-10-20 | XMS | Encounter Summary ---
Demographics + + + | Address | [address] [facility] | | | [place] [address] | + + + | Home Phone [...] Team Providers + +------+ + | Care General Purchasing Agent Name | Role | Phone | + +------+ + PCP | Unavailable | + +------+ + Encounter Details +--------+ + + + + | Date | Type | Department | Care Team | Description | +--------+ + + + + | 11/13/ | Hospital | [facility] | | | | 2006 | Encounter | MED CTR XRAY [address] | | | | | | [address] | | | | | | [place] [address] | | | | | | [phone] | | | +--------+ + + + [...] [place] | | | | | | [address] | | | | | | (Fax) | | +--------+---------+ + + + documented as of this encounter Visit Diagnoses Not on filedocumented in this encounter"
--- OUTSIDE RECORDS SUMMARY | ~2019-10-20 | XMS | Encounter Summary ---
Demographics + + + | Address | [address] [facility] | | | [place] [address] | + + + | Home Phone | | + + + | Preferred Language | Unknown | + + + | Marital Status | Unknown | + + + | Orthodox Affiliation | Unknown | + + + | Race | Unknown | + + + | Ethnic Group | Unknown | + + + Author + + + | Author | [facility] | | | and [place] | + + + | Organization | [facility] | | | [...] Team Providers + +------+ + | Care Battery Hand Name | Role | Phone | + [...] + + | 07/28/ | Documentati | [facility] | [place], | Results (07/28/19) | | 2020 | on | NEPHROLOGY [place] | [facility] | | | | | [address] | Staff Development Nurse | | | | | [address] [place], [place] | | | | | | [address] | | | | | | [phone] | | | +--------+ + + + [...] 2019 | Visit | | [address] [facility] | | | | | | [facility] | | | | | | [address] | | | | | | | [...] 1.001 - 1.030 | | | | [place], | | | | | | Urine [...]
--- OUTSIDE RECORDS SUMMARY | ~2019-10-20 | XMS | Encounter Summary ---
Demographics + + + | Address | [address] [address] | | | [place] [address] | + + + | Home Phone | | + + + | Preferred Language | Unknown | + + + | Marital Status | Unknown | + + + | Scientology Affiliation | Unknown | + + + | Race | Unknown | + + + | Ethnic Group | Unknown | + + + Author + + + | Author | [facility] | | | and [place] | + + + | Organization | [facility] | | [...] Team Providers + +------+ + | Care Freight Delivery Driver Name | Role | Phone | [...] + + | 10/04/ | Hospital | [facility] | Paulo Ayers MD | Paroxysmal atrial | | 2019 - | Encounter | MED CTR SUR[facility] | [address] | fibrillation ([facility]); | | | | [address] | [place] | Atrial fibrillation | | 10/06/ | | [place] [address] | [address] | with RVR ([facility]); | | 2019 | | [phone] | | Acute heart failure | | | | | | with preserved | | | | | | ejection fraction | | | | | | ([facility]); CKD (chronic | | | | | | kidney disease) | | | | | | stage 4, GFR 15-29 | | | | | | ml/min ([facility]); | | | | | | Tobacco [...] E' Septal Velocity 5.38 cm/s MV Deceleration [place] 700.72 cm/s2 MV Deceleration Time 132.19 msec [...] at least 3 weeks - Hospitalized in [place] for a day in August for rate control - Intermittent a fib vs. NSR in the hospital, in NSR for 24 hours at discharge - Increased metoprolol from 25 bid to 37.5 bid for better rate control - Discussed with Wayne, will continue rate control strategy at this [...] with RVR, would not ca ll this [place] Diabetes mellitus type 2, insulin dependent with [...] Nicole PA-C In 1 month. Specialties: Physician Cellophane Bath Mixer, Cardiology Contact information: [facility] [address] Discharge Medications New Medications Details pramipexole [...] to take when to take this aka: LANTUS SOLOSTAR metoprolol tartrate 25 mg tablet Take 1.5 [...] by: Travis Copeland MD, 10/07/2019 1:25 PM documented in this encounter Discharge Instructions Instructions [...] times daily. | | | | | | capsule | | | | [...] | | | | | | | tsol800-436= 2 | | | | | | | knurr660-728= 3 | | | | | | | vhiph670-233= 4 | | | | | | [...] evening. | tablet | | 20 | | | tablet | | | | | | + + + +---------+ + + documented as of this encounter Progress Notes Leo Cerna, Production Boring Machine Operator - 10/07/2019 3:26 PM PDTPHARMACY SERVICES: METOP [...] before initiating an y new medications (e.g., jtiv-lhg-hiyibru) WARFARIN Indication for medication Importance of following-up with outpatient [place] clinic for warfarin dosing Importance of continuation [...] before initiating an y new medications (e.g., ifop-yur-rgcumnd) Assessment/Plan: 1. Patient was provided a handout/booklet on Metoprolol Tartrate and Warfarin 2. Patient demonstrated understanding and all questions were answered. 3. Please consult pharmacist for any further medication related education. 4. Thank you. Electronically signed by: Leo Cerna, Production Boring Machine Operator 10/07/2019 3:27 PM Travis Membreno MD - 10/06/2019 4:22 PM PDTFormatting of this note might be different f rom the original. [facility] PMG Hospitalist Progress Note Lizet Mcneil is [...] at least 3 weeks - Hospitalized in [place] for a day in August for rate [...] with RVR, would not ca ll this [place] Diabetes mellitus type 2, insulin dependent with [...] ECG No previous ECGs available Confirmed by JOSEPHINE STEVENS MD ([id number]) on 10/06/2019 6:26:09 AM POC Glucose Result [...] E' Septal Velocity 5.38 cm/s MV Deceleration [place] 700.72 cm/s2 MV Deceleration Time 132.19 msec [...] AT THE LEFT BASE, FAVORING INTERSTITIAL EDEMA. Dict ed and Signed by: Yasir Parish MD [...] above. Travis Copeland MD 10/06/2019 4:25 PM [facility] Vicente Llanes, [place] rmD - 10/06/2019 7:30 AM PDT RENAL [...] 10/06/2019 7:27 AM documented in this encounter Plan of Treatment +--------+---------+ + + + | Date | Type | Specialty | Care Team | Description | +--------+---------+ + + + | 11/07/ | Office | Nephrology | Matty Bingham MD | | | 2019 | Visit | | [address] [place] | | | | | | [address] [place] | | | | | | [address] | | | | | | | [...] | Time | | seconds | [facility] | | | | [...] [address] | [place] | [phone] | | [facility] | | [address] | | | - LABORATORY | | [...] [address] | [place] | [phone] | | [facility] | | [address] | | | - LABORATORY | | [...] [address] | [place] | [phone] | | [facility] | | [address] | | | - LABORATORY | | [...] + + | [facility] | [address] | [place] | [phone] | | [facility] | | [address] | | | - LABORATORY | | [...] | nRBC | | K/uL | [facility] | | | | [...] [address] | [place] | [phone] | | [facility] | | [address] | | | - LABORATORY | | [...] | | | | | mmol/L | [facility] | | | | | | MEDICAL | | | | | | CENTER - | | | | | | LABORATORY | | + + + + + + | K | 4.2 | 3.4 - 5.1 | [facility] | | | | | mmol/L | [facility] | | | | [...] (H) | 9 - 23 mg/dL | [facility] | | | | | | [facility] | | | | | | MEDICAL | | | | | | CENTER - | | | | | | LABORATORY | | + + + + + + | Creatinine | 2.68 (H) | 0.55 - 1.02 | [facility] | | | | | mg/dL | [facility] | | | | | | MEDICAL | | | | | | CENTER - | | | | | | LABORATORY | | + + + + + + | eGFR if not | 18 (L)Comment: | >=60 | [facility] | | | | GLOMERULAR FILTRATION | mL/min/1.73m2 | [facility] | | | [place] | RATE,ESTIMATED | | MEDICAL | | | | mL/min/1.80h1Fupw than | | CENTER - | | [...] | | | | mg/dL | [facility] | | | | [...] + | [facility] | [address] | [place] | [phone] | | [facility] | | [address] | | | - LABORATORY | | [...] [address] | [place] | [phone] | | [facility] | | [address] | | | - LABORATORY | | [...] | | | POC | | | [facility] | | | [...] [address] | [place] | [phone] | | [facility] | | [address] | | | - LABORATORY | | [...] | | | | | | n [place] | | | | | + +--------+ [...] (TTE) Demographics Patient Name | | | [facility] Room Number 321 | | | [facility] Patient Number [id number] Date of Study | | | 10/06/2019 Visit Number [id number] Referring | | | Physician ORVILLE FULTON | | | Clinical Biochemist MARY STEPHENS [facility] Number Date of | | | 1950 Interpreting ELADIA BLACK MD | | | Physician Age | | | 69 year(s) Nurse Gender Female | | | Stress Field Talent Qualification Specialist Procedure Type of Study TTE | | | procedure:ECHO Complete. Procedure DateDate: 10/06/2019 Start: 02:51 | | | PM Study Location: PortableTechnical Quality: Adequate visualization | | | Indications:Atrial [...] Number 321 | | [facility] Patient Number [id number] Date of Study 10/06/2019 Visit | | Number [id number] Referring Physician ORVILLE FULTON Accession | | [id number] Clinical Biochemist MARY STEPHENS, [facility] Number Date of | | 1950 Interpreting ELADIA BLACK MD | | Physician Age 69 year(s) Nurse Gender Female | | Stress TechnicianProcedureType of Study TTE procedure:ECHO Complete.Procedure | | DateDate: 10/06/2019 Start: 02:51 PMStudy [facility]: Adequate | | visualizationIndications:Atrial fibrillation, unspecified [...] + | [facility] | [address] | [place] | [phone] | | [facility] | | [address] | | | - LABORATORY | | [...] + | [facility] | [address] | [place] | [phone] | | [facility] | | [address] | | | - LABORATORY | | | | + + + + + TSH (10/06/2019 5:25 AM PDT) + +-------+ + + + | Component | Value | Ref Range | Performed | Pathologist | | | | | At | Signature | + +-------+ + + + | TSH | 2.32 | 0.55 - 4.78 | [facility] | | | | | uIU/mL | [facility] | | | | [...] ST. | [address] | [place], [place] | [phone] | | [facility] | | [address] | | | - LABORATORY | | | | + + + + + Magnesium (10/06/2019 5:25 AM PDT) + +-------+ + + + | Component | Value | Ref Range | Performed | Pathologist | | | | | At | Signature | + +-------+ + + + | Magnesium | 1.9 | 1.6 - 2.6 mg/dL | [facility] [...] [address] | [place] | [phone] | | [facility] | | [address] | | | - LABORATORY | | [...] + | [facility] | [address] | [place] | [phone] | | [facility] | | [address] | | | - LABORATORY | | [...] | | | | | mmol/L | [facility] | | | | [...] not | 17 (L)Comment: | >=60 | [facility] | | | | GLOMERULAR FILTRATION | mL/min/1.73m2 | [facility] | | | GRE[place]DIAN | RATE,ESTIMATED | | MEDICAL | | | | mL/min/1.25c5Njxj than | | CENTER - | | [...] [address] | [place] | [phone] | | [facility] | | [address] | | | - LABORATORY | | [...] | | | | | | [employer] | | | | | [...] + + | Performing | Address | City/State/[facility] Cent[facility]ode | Phone Number | | Organization | | | | + + + + + | [facility] | [address] | [place] | [phone] | | [facility] | | [address] | | | - LABORATORY | | [...] 1,607 (H)Comment: New | <100 pg/mL | [facility] | | | | method in use as of | | [facility] | | | | July 22, 2018. [...] + | [facility] | [address] | [place] | [phone] | | [facility] | | [address] | | | - LABORATORY | | [...] ST. | [address] | [place], [place] | [phone] | | [facility] | | [address] | | | - LABORATORY | | [...] | | | | JOSEPHINE STEVENS MD ([id number]) | | | | | | on [...] | | | | | | [facility] | | | | | | MEDICAL [...] 2.56 (H) | 0.55 - 1.02 | [facility] | | | | | mg/dL | [...] mL/min/1.73m2 | [facility] | | | [place] | RATE,ESTIMATED | | MEDICAL | | | | mL/min/1.29w1Cvov than | | CENTER - | | [...] + | [facility] | [address] | [place] | [phone] | | [facility] | | [address] | | | - LABORATORY | | | | + + + + + Troponin I (10/05/2019 10:26 PM PDT) + + + + + + | Component | Value | Ref Range | Performed | Pathologist | | | | | At | Signature | + + + + + + | Troponin I | 0.06 (H)Comment: | <0.06 ng/mL | [facility] | | | | Comment:Reference | | [facility] | | | | Ranges: 0.00-0.06 [...] | | | | | | [employer] | | | | | [...] [address] | [place] | [phone] | | [facility] | | [address] | | | - LABORATORY | | | | + + + + + documented in this encounter Visit Diagnoses + + | Diagnosis | + + | Atrial fibrillation with RVR (HCC) - Primary Atrial fibrillation | + + | Paroxysmal atrial fibrillation (HCC) Atrial fibrillation | + + | Acute heart failure with preserved ejection fraction ([facility]) | + + | CKD (chronic kidney disease) stage 4, GFR 15-29 ml/min ([facility]) Chronic kidney disease, | | Stage IV (severe) | + + | Tobacco abuse Tobacco use disorder | + + | Type 2 diabetes mellitus with diabetic nephropathy, with long-term current use of | | insulin ([facility]) | + + | Essential hypertension Unspecified [...] | | | | | | | 9029-4420 Use NIGHT DOSE for | | | | | | | doses scheduled: HS, | | | | | | | Nighttime 8461-8016 If the BG is | | | [...] | | | | | | | 4108-3263 Use NIGHT DOSE for | | | | | | | doses scheduled: HS, | | | | | | | Nighttime 4962-1215 If the BG is | | | [...] PRN, Nicotine Craving, | | | Starting Fri10/05/19 at 2250 | | + +---+ | | | + +---+ | ondansetron (ZOFRAN) injection | | | 4 mg 4 mg, Intravenous, EVERY 6 | | | HOURS PRN, Nausea, Vomiting, | | | Starting Fri10/05/19 at 2237, | | | First line agent, | | + +---+ | | | + +---+ | pharmacy consult - other | | | medications/reasons PHARMACY | | | CONSULT, Starting [facility] 10/07/19 at | | | 1415, [...] | | | | First dose on Fri10/07/19 at | | PM PDT | | [...]
--- OUTSIDE RECORDS SUMMARY | ~2019-10-20 | XMS | Encounter Summary ---
Demographics + + + | Address | [address] [facility] [address] | | | [place] [address] | + + + | Home Phone [...] Team Providers + +------+ + | Care Laborer Cheesemaking Name | Role | Phone | + +------+ + | Lizet Oliva | PCP | | + +------+ + Encounter Details +--------+ + + + + | Date | Type | Department | Care Team | Description | +--------+ + + + + | 08/02/ | Orders Only | [facility] | Matty Bingham MD | Essential | | 2020 | | NEPHROLOGY [place] | [address] [place] | hypertension | | | | [address] | [address] [place], [place] | (Primary Dx); CKD | | | | [address] [place] [address] | [address] | (chronic kidney | | | | [place], [place] | | disease) stage 4, | | | | [address] | | GFR 15-29 ml/min | | | | [phone] | | (HCC); Nephrotic | | | [...] 2020 | Visit | | [address] [facility] | | | | | | [address] [place] | | | | | | [address] | | | | | | | [...] ml/min | | | | | | ([facility]) Nephrotic | | | | [...] ml/min | | | | | | ([facility]) Nephrotic | | | | [...] ml/min | | | | | | ([facility]) Nephrotic | | | | [...] ml/min | | | | | | ([facility]) Nephrotic | | | | [...]
--- OUTSIDE RECORDS SUMMARY | ~2019-10-20 | XMS | Encounter Summary ---
Demographics + + + | Address | [address] [facility] [address] | | | [place] [address] | + + + | Home Phone | | + + + | Preferred Language | Unknown | + + + | Marital Status | Unknown | + + + | Oriental Orthodox Affiliation | Unknown | + + [...] Team Providers + +------+ + | Care Station Installer And Repairer Name | Role | Phone | + [...] [address] | | | | | | [place], [place] | | | | | | [address] | | | | | | [phone] | | | +--------+ + + + [...] [place] | | | | | | [address] | | | | | | | | +--------+---------+ + + + documented as of this encounter Visit Diagnoses Not on filedocumented in this encounter"
--- OUTSIDE RECORDS SUMMARY | ~2019-10-20 | XMS | Encounter Summary ---
Demographics + + + | Address | [address] [facility] [address] | | | [place] [address] | + + + | Home Phone [...] + + + | Author | [facility] | | | and [place] | + + + | Organization | [facility] | | | [...] Team Providers + +------+ + | Care Roll Tube Setter Name | Role | Phone | + [...] + + | 09/01/ | Telephone | [facility] | Matty Bingham MD | Pain | | 2020 | | NEPHROLOGY [place] | [address] [place] | | | | | [address] [place] | [address] [place], [place] | | | | | [address] [place], [place] | [address] | | | | | [address] | | | | | | [phone] | | | +--------+ + + + [...] 2020 | Visit | | [address] [facility] | | | | | | [address] [place] | | | | | | [address] | | | | | | | | +--------+---------+ + + + documented as of this encounter Visit Diagnoses Not on filedocumented in this encounter"
--- OUTSIDE RECORDS SUMMARY | ~2019-10-20 | XMS | Encounter Summary ---
Demographics + + + | Address | [address] [facility] [address] | | | [place] [address] | + + + | Home Phone [...] + + + | Author | [facility] | | | and [place] | + + + | Organization | [facility] | | [...] Team Providers + +------+ + | Care Frame Bender Name | Role | Phone | + +------+ + | Benny James MD | PCP | | + +------+ + Encounter Details +--------+ + + + + | Date | Type | Department | Care Team | Description | +--------+ + + + + | 07/23/ | Orders Only | [facility] | Matty Bingham MD | Chronic kidney | | 2020 | | NEPHROLOGY [place] | [address] [place] | disease, stage IV | | | | [address] [place] | [address] [facility] [place] | (severe) (HCC) | | | | [address] [place], [place] | [address] | (Primary Dx) | | | | [address] | | | | | | [phone] | | | +--------+ + + + [...] 2019 | Visit | | [address] [facility] [place] | | | | | | [address] [place], [place] | | | | | | [address] | | | | | | | [...] Expires: | | | | | (severe) ([facility]) | 07/23/2020 | + +------+--------+ + + | Urinalysis With | Lab | Routin | Chronic kidney | Expected: | | Microscopic | | e | disease, stage IV | 07/26/2019, Expires: | | | | | (severe) ([facility]) | 07/23/2020 | + +------+--------+ [...]
--- OUTSIDE RECORDS SUMMARY | ~2019-10-20 | XMS | Encounter Summary ---
Demographics + + + | Address | [address] [facility] [address] | | | [place] [address] | + + + | Home Phone [...] Team Providers + +------+ + | Care Shot Blaster Name | Role | Phone | + [...] [address] | | | | | | [place], [place] | | | | | | [address] | | | | | | [phone] | | | +--------+ + + + [...] 2020 | Visit | | [address] [facility] | | | | | | [address] [place] | | | | | | [address] | | | | | | | | +--------+---------+ + + + documented as of this encounter Visit Diagnoses Not on filedocumented in this encounter"
--- OUTSIDE RECORDS SUMMARY | ~2019-10-20 | XMS | Encounter Summary ---
Demographics + + + | Address | [address] [facility] [address] | | | [place] [address] | + + + | Home Phone | | + + + | Preferred Language | Unknown | + + + | Marital Status | Unknown | + + + | Jain Affiliation | Unknown | + + + | Race | Unknown | + + + | Ethnic Group | Unknown | + + + Author + + + | Author | [facility] | | | and [place] | + + + | Organization | [facility] | | | [...] Team Providers + +------+ + | Care Washcloth Folder Name | Role | Phone | + +------+ + PCP | Unavailable | + +------+ + Encounter Details +--------+ + + + + | Date | Type | Department | Care Team | Description | +--------+ + + + + | 11/13/ | Hospital | [facility] | | | | 2006 | Encounter | MED CTR XRAY [address] | | | | | [address] [place] | | | | | | [place] [address] | | | | | | [phone] | | | +--------+ + + + [...] [place] | | | | | | [address] | | | | | | (Fax) | | +--------+---------+ + + + documented as of this encounter Visit Diagnoses Not on filedocumented in this encounter"
--- OUTSIDE RECORDS SUMMARY | ~2019-10-20 | XMS | Clinical Summary ---
Demographics + + + | Address | [address] [facility] | | | [place] [address] | + + + | Home Phone [...] Team Providers + +------+ + | Care Pearl Digger Name | Role | Phone | + [...] | | | | | | | [id number]= 2 | | | | | | | | [id number]= 3 | | | | | | | | [id number]= 4 | | | | | | [...] - | Encounter | | | fibrillation ([facility]); | | | | | | Atrial fibrillation | | 10/06/ | | | | with RVR ([facility]); | | 2019 | | | | Acute heart failure | | | | | | with preserved | | | | | | ejection fraction | | | | | | ([facility]); CKD (chronic | | | | | | kidney disease) | | | | | | stage 4, GFR 15-29 | | | | | | ml/min ([facility]); | | | | | | Tobacco abuse | +--------+ + + + + | 10/04/ | Intake | | | N/A | | 2019 | | | | | +--------+ + + + + | 09/01/ | Documentati | Nephrology | [place], | Other (Signed letter | 2019 | on | | Naomi Seo | sent to [place] for | | | | | Retail Coverage Merchandiser Lead | patients PCP | | | | [...] ml/min | | | | | | ([facility]); Nephrotic | | | | | | [...] ml/min | | | | | | ([facility]) (Primary Dx); | | | | | | 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, 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 | | | | | | use of insulin | | | | | | ([facility]); Essential | | | | | | [...] Seo | | | | | | Retail Coverage Merchandiser Lead | | +--------+ + + + + | 07/27/ | Orders Only | Nephrology | Art, | | | 2019 | | | Naomi Seo | | | | | | Retail Coverage Merchandiser Lead | | +--------+ + + + + [...] 2019 | Visit | | [address] [facility] | | | | | | [facility] | | | | | | [address] | | | | | | | [...] [address] | [place] | [phone] | | [facility] | | [address] | | | - LABORATORY | | [...] [address] | [place] | [phone] | | [facility] | | [address] | | | - LABORATORY | | [...] [address] | [place] | [phone] | | [facility] | | [address] | | | - LABORATORY | | [...] + | [address] | [address] | [place] | [phone] | | [facility] | | [address] | | | - LABORATORY | | [...] 2.68 (H) | 0.55 - 1.02 | [facility] | | | | | mg/dL | [facility] | | | | | | MEDICAL | | | | | | CENTER - | | | | | | LABORATORY | | + + + + + + | eGFR if not | 18 (L)Comment: | >=60 | [facility] | | | | GLOMERULAR FILTRATION | mL/min/1.73m2 | [facility] | | | [place]EN[place] | RATE,ESTIMATED | | MEDICAL | | | | mL/min/1.37h5Esqn than | | CENTER - | | [...] | 9.9 | 8.7 - 10.4 | [place] | | | | | mg/dL | [facility] | | | | | | MEDICAL [...] [address] | [place] | [phone] | | [facility] | | [address] | | | - LABORATORY | | [...] | | | | | | n [place] | | | | | + +--------+ [...] (TTE) Demographics Patient Name | | | [facility] Number [facility] | | | LIZET Patient Number [id number] Date of Study | | | 10/06/2019 Visit Number [id number] Referring | | | Physician ORVILLE FULTON | | | Wet And Dry Sugar Bin Operator MARY STEPHENS RDCS Number Date of | | | 1950 Interpreting ELADIA RODRIGES MD | | | Physician Age | | | 69 year(s) Nurse Gender Female | | | Stress Service Observer Chief Procedure Type of Study TTE | | | procedure:ECHO Complete. Procedure DateDate: 10/06/2019 Start: 02:51 | | | PM [facility]: Adequate visualization | | | [...] Report | | (TTE) Demographics Patient Name [facility] Room Number 321 | | LIZET Patient Number [id number] Date of Study 10/06/2019 Visit | | Number [id number] Referring Physician ORVILLE FULTON Accession | | [id number] Wet And Dry Sugar Bin Operator MARY STEPHENS AMIRA Number Date of | | 1950 Interpreting ELADIA RODRIGES MD | | Physician Age 69 year(s) Nurse Gender Female | | Stress TechnicianProcedureType of Study TTE procedure:ECHO Complete.Procedure | | DateDate: 10/06/2019 Start: 02:51 PMStudy [facility]: Adequate | | visualizationIndications:Atrial fibrillation, unspecified [...] + + | Performing | Address | City/State/[facility] | Phone Number | [...] | | | | | | [employer] | | | | | [...] [address] | [place] | [phone] | | [facility] | | [address] | | | - LABORATORY | | [...] | | | | | uIU/mL | [facility] | | | | | | MEDICAL [...] + | [address] | [address] | [place] | [phone] | | [facility] | | [address] | | | - LABORATORY | | [...] method in use as of | | [facility] | | | | July 22, [...] [address] | [place] | [phone] | | [facility] | | [address] | | | - LABORATORY | | [...] | | | | JOSEPHINE STEVENS MD ([id number]) | | | | | | on [...] 1.001 - 1.030 | | | | [place], | | | | | | Urine [...] +---------+--------+ | [employer] | [place] | [id number] | 08/02/19 | | | Indemn | | | COMMUN | | 20-Pre | | | ity | | | ITY | | sent | | | | | | CARE | | | | | | + +--------+ +--------+ +---------+--------+ | [employer] | [place] | [id number] | 08/02/19 | | | Indemn | | | NS | | 20-Pre | | | ity | | | ADMIN | | sent | | | | | | [place] | | | | | | | | [place] | | | | | | + +--------+ +--------+ +---------+--------+ | [employer] | [place] | [id number] | | | | Indemn | | | NS | | 006-Pr | | | ity | | | ADMIN | | esent | | | | | | [place] | | | | | | | | [place] | | | | | | + +--------+ +--------+ +---------+--------+ | [employer] | [place] | [id number] | | | | Indemn | | | COMMUN | | 016-Pr | | | ity | | | ITY | | esent | | | | | | CARE | | | | | | + +--------+ +--------+ +---------+--------+ | MEDICARE | MEDICA | [id number] | | [phone] | | Medica | [...] [place] | | | 7 (Home) | [phone] | + +--------+ +--------+ + + | Lizet Mcneil | Person | Self | [birth year] | [address] | | | al/Fam | | 1951 | [phone] | [address] [place], [place] | | | [place] | | | 7 (Home) | [address] | + +--------+ +--------+ + + Advance Directives + + + + + | Type | Date Recorded | Patient | Explanation | | | | Palm Gatherer | | + + + + + | Power of | | | | | Electric Vehicle Electrician | | | | + + + [...]
--- OUTSIDE RECORDS SUMMARY | ~2019-10-20 | XMS | Encounter Summary ---
Demographics + + + | Address | [address] [facility] [address] | | | [place] [address] | + + + | Home Phone [...] Team Providers + +------+ + | Care Fulfillment Specialist Name | Role | Phone | [...] [address] | | | | | | [place], [place] | (Fax) | | | | | [address] | | | | | | [phone] | | | +--------+ + + + [...] 2020 | Visit | | [address] [facility] | | | | | | [address] [place], [place] | | | | | | [address] | | | | | | | | +--------+---------+ + + + documented as of this encounter Visit Diagnoses Not on filedocumented in this encounter"
--- OUTSIDE RECORDS SUMMARY | ~2019-10-20 | XMS | Encounter Summary ---
Demographics + + + | Address | [address] [facility] [address] | | | [place] [address] | + + + | Home Phone [...] Team Providers + +------+ + | Care Filler Feeder Name | Role | Phone | [...] + + | 10/04/ | Hospital | [facility] | Paulo Ayers MD | Paroxysmal atrial | | 2019 - | Encounter | [facility] | [address] | fibrillation ([facility]); | | | | [address] | [place] | Atrial fibrillation | | 10/06/ | | [facility] [place] [address] | [address] | with RVR ([facility]); | | 2019 | | [phone] | | Acute heart failure | | | | | | with preserved | | | | | | ejection fraction | | | | | | ([facility]); CKD (chronic | | | | | | kidney disease) | | | | | | stage 4, GFR 15-29 | | | | | | ml/min ([facility]); | | | | | | Tobacco [...] the original. DISCHARGE SUMMARY Patient Name: Lizet Mnceil : 1950 Date of Admission: 10/05/2019 Date of Discharge: 10/07/19 Admitting Physician: Paulo Ayers MD Discharging Physician: Trvais Copeland MD Primary Care Provider: JOEL Salvador [...] E' Septal Velocity 5.38 cm/s MV Deceleration Adams 700.72 cm/s2 MV Deceleration Time 132.19 msec [...] at least 3 weeks - Hospitalized in [place] for a day in August for rate [...] with RVR, would not ca ll this [place] Diabetes mellitus type 2, insulin dependent with [...] Nicole PA-C In 1 month. Specialties: Physician Caltrans Equipment Operator, Cardiology Contact information: [facility] [address] Discharge Medications New Medications Details [...] by: Travis Copeland MD, 10/07/2019 1:[address] [facility] documented in this encounter Discharge Instructions Instructions [...] | | | | | | | [id number]= 2 | | | | | | | [id number]= 3 | | | | | | | [id number]= 4 | | | | | | [...] of this encounter Progress Notes Leo Cerna, Certified Orthotic Fitter - 10/07/2019 3:26 PM PDTPHARMACY SERVICES: METOP [...] before initiating an y new medications (e.g., ylfn-ayu-ppruami) WARFARIN Indication for medication Importance of following-up with outpatient [place] clinic for warfarin dosing Importance of continuation [...] before initiating an y new medications (e.g., rdne-bup-oszaqft) Assessment/Plan: 1. Patient was provided a handout/booklet on Metoprolol Tartrate and Warfarin 2. Patient demonstrated understanding and all questions were answered. 3. Please consult pharmacist for any further medication related education. 4. Thank you. Electronically signed by: Leo Cerna, Certified Orthotic Fitter 10/07/2019 3:27 PM Travis Membreno MD - 10/06/2019 4:22 PM PDTFormatting of this note might be different f rom the original. [facility] Hospitalist Progress Note Lizet Mcneil is [...] at least 3 weeks - Hospitalized in [place] for a day in August for rate [...] with RVR, would not ca ll this [place] Diabetes mellitus type 2, insulin dependent with [...] ECGs available Confirmed by JOSEPHINE STEVENS MD ([id number]) on 10/06/2019 6:26:09 AM POC Glucose Result [...] E' Septal Velocity 5.38 cm/s MV Deceleration Adams 700.72 cm/s2 MV Deceleration Time 132.19 msec [...] above. Travis Copeland MD 10/06/2019 4:25 PM [facility] Vicente Llanes, [place] rmD - 10/06/2019 7:30 [...] | | | | | | [address] [place] | | | | | | [address] | | | | | | | [...] [address] | [place] | [phone] | | [facility] | | [address] | | | - LABORATORY | | [...] [address] | [place] | [phone] | | [facility] | | [address] | | | - LABORATORY | | [...] [address] | [place] | [phone] | | [facility] | | [address] | | | - LABORATORY | | [...] [address] | [place] | [phone] | | [facility] | | [address] | | | - LABORATORY | | [...] [address] | [place] | [phone] | | [facility] | | [address] | | | - LABORATORY | | [...] (H) | 9 - 23 mg/dL | [facility] | | | | | | [facility] | | | | | | MEDICAL | | | | | | CENTER - | | | | | | LABORATORY | | + + + + + + | Creatinine | 2.68 (H) | 0.55 - 1.02 | [facility] | | | | | mg/dL | [facility] | | | | | | MEDICAL | | | | | | CENTER - | | | | | | LABORATORY | | + + + + + + | eGFR if not | 18 (L)Comment: | >=60 | [facility] | | | | GLOMERULAR FILTRATION | mL/min/1.73m2 | [facility] | | | [place] | RATE,ESTIMATED | | MEDICAL | | | | mL/min/1.95l8Rbpa than | | CENTER - | | [...] + | [facility] | [address] | [place] | [phone] | | [facility] | | [address] | | | - LABORATORY | | [...] [address] | [place] | [phone] | | [facility] | | [address] | | | - LABORATORY | | [...] [address] | [place] | [phone] | | [facility] | | [address] | | | - LABORATORY | | [...] | | | | | | n Adams | | | | | + +--------+ [...] (TTE) Demographics Patient Name | | | [facility] Room Number 321 | | | LIZET Patient Number [id number] Date of Study | | | 10/06/2019 Visit Number [id number] Referring | | | Physician ORVILLE FULTON | | | Senior Animator MARY STEPHENS [facility] Number Date of | | | 1950 Interpreting ELADIA BLACK MD | | | Physician Age | | | 69 year(s) Nurse Gender Female | | | Stress Retail Asset Protection Specialist Procedure Type of Study TTE | [...] Number 321 | | LIZET Patient Number [id number] Date of Study 10/06/2019 Visit | | Number [id number] Referring Physician ORVILLE FULTON Accession | | [id number] Senior Animator MARY STEPHENS, [facility] Number Date of | | 1950 Interpreting ELADIA BLACK MD | | Physician Age 69 year(s) Nurse Gender Female | | Stress TechnicianProcedureType of Study TTE procedure:ECHO Complete.Procedure | | DateDate: 10/06/2019 Start: 02:51 PMStudy [facility]: [facility]quate | | visualizationIndications:Atrial fibrillation, unspecified [...] + | [facility] | [address] | [place] | [phone] | | [facility] | | [address] | | | - LABORATORY | | [...] + | [address] | [address] | [place] | [phone] | | [facility] | | [address] | | | - LABORATORY | | [...] ST. | [address] | [place], [place] | [phone] | | [facility] | | [address] | | | - LABORATORY | | [...] [address] | [place] | [phone] | | [facility] | | [address] | | | - LABORATORY | | [...] + | [facility] | [address] | [place] | [phone] | | [facility] | | [address] | | | - LABORATORY | | [...] | mL/min/1.73m2 | [facility] | | | [place] | RATE,ESTIMATED | | MEDICAL | | | | mL/min/1.06x5Fxni than | | CENTER - | | [...] [address] | [place] | [phone] | | [facility] | | [address] | | | - LABORATORY | | [...] | | | | | | [employer] | | | | | [...] + + | Performing | Address | City/State/[facility] [[email or web address] | Phone Number | | Organization | | | | + + + + + | [address] | [address] | [place] | [phone] | | [facility] | | [address] | | | - LABORATORY | | [...] 1,607 (H)Comment: New | <100 pg/mL | [facility] | | | | method in use as of | | [facility] | | | | July 22, 2018. [...] + | [facility] | [address] | [place] | [phone] | | [facility] | | [address] | | | - LABORATORY | | [...] ST. | [address] | [place], [place] | [phone] | | [facility] | | [address] | | | - LABORATORY | | [...] | | | | JOSEPHINE STEVENS MD ([id number]) | | | | | | on [...] 2.56 (H) | 0.55 - 1.02 | [facility] | | | | | mg/dL [...] mL/min/1.73m2 | [facility] | | | [place] | RATE,ESTIMATED | | MEDICAL | | | | mL/min/1.94b5Joww than | | CENTER - | | [...] + | [facility] | [address] | [place] | [phone] | | [facility] | | [address] | | | - LABORATORY | | | | + + + + + Troponin I (10/05/2019 10:26 PM PDT) + + + + + + | Component | Value | Ref Range | Performed | Pathologist | | | | | At | Signature | + + + + + + | Troponin I | 0.06 (H)Comment: | <0.06 ng/mL | [facility] | | | | Comment:Reference | | [...] | | | | | | [employer] | | | | | [...] [address] | [place] | [phone] | | [facility] | | [address] | | | - LABORATORY | | | | + + + + + documented in this encounter Visit Diagnoses + + | Diagnosis | + + | Atrial fibrillation with RVR (HCC) - Primary Atrial fibrillation | + + | Paroxysmal atrial fibrillation (HCC) Atrial fibrillation | + + | Acute heart failure with preserved ejection fraction ([facility]) | + + | CKD (chronic kidney disease) stage 4, GFR 15-29 ml/min ([facility]) Chronic kidney disease, | | Stage IV (severe) | + + | Tobacco abuse Tobacco use disorder | + + | Type 2 diabetes mellitus with diabetic nephropathy, with long-term current use of | | insulin ([facility]) | + + | Essential hypertension Unspecified [...] | | | | | | | 8497-3485 Use NIGHT DOSE for | | | | | | | doses scheduled: HS, | | | | | | | Nighttime 9573-5341 If the BG is | | | [...] | | | | | | | 9067-0940 Use NIGHT DOSE for | | | | | | | doses scheduled: HS, | | | | | | | Nighttime 1723-9478 If the BG is | | | [...] medications/reasons PHARMACY | | | CONSULT, Starting [facility] 10/07/19 at | | | 1415, [...]
--- OUTSIDE RECORDS SUMMARY | ~2019-10-20 | XMS | Clinical Summary ---
Demographics + + + | Address | [address] [facility] | | | [place] [address] | + + + | Home Phone [...] Team Providers + +------+ + | Care Telegraph Operator Name | Role | Phone | [...] | | | | | | | [id number]= 2 | | | | | | | | -[phone]= 3 | | | | | | | | [id number]= 4 | | | | | | [...] - | Encounter | | | fibrillation ([facility]); | | | | | | Atrial fibrillation | | 10/06/ | | | | with RVR ([facility]); | | 2019 | | | | Acute heart failure | | | | | | with preserved | | | | | | ejection fraction | | | | | | ([facility]); CKD (chronic | | | | | | kidney disease) | | | | | | stage 4, GFR 15-29 | | | | | | ml/min ([facility]); | | | | | | Tobacco abuse | +--------+ + + + + | 10/04/ | Intake | | | N/A | | 2019 | | | | | +--------+ + + + + | 09/01/ | Documentati | Nephrology | [place], | Other (Signed letter | 2019 | on | | Naomi Seo | sent to [place] for | | | | | Manager Placement | patients PCP | | | | [...] ml/min | | | | | | ([facility]); Nephrotic | | | | | | [...] ml/min | | | | | | ([facility]) (Primary Dx); | | | | | | 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, 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 | | | | | | use of insulin | | | | | | ([facility]); Essential | | | | | | [...] Seo | | | | | | Manager Placement | | +--------+ + + + + | 07/27/ | Orders Only | Nephrology | Art, | | | 2019 | | | Naomi Seo | | | | | | Manager Placement | | +--------+ + + + + [...] 2019 | Visit | | [address] [facility] | | | | | | [facility] | | | | | | [address] | | | | | | | [...] [address] | [place] | [phone] | | [facility] | | [address] | | | - LABORATORY | | [...] [address] | [place] | [phone] | | [facility] | | [address] | | | - LABORATORY | | [...] [address] | [place] | [phone] | | [facility] | | [address] | | | - LABORATORY | | [...] + | [address] | [address] | [place] | [phone] | | [facility] | | [address] | | | - LABORATORY | | [...] 2.68 (H) | 0.55 - 1.02 | [facility] | | | | | mg/dL | [facility] | | | | | | MEDICAL | | | | | | CENTER - | | | | | | LABORATORY | | + + + + + + | eGFR if not | 18 (L)Comment: | >=60 | [facility] | | | | GLOMERULAR FILTRATION | mL/min/1.73m2 | [facility] | | | [place] | RATE,ESTIMATED | | MEDICAL | | | | mL/min/1.09v8Baks than | | CENTER - | | [...] | 9.9 | 8.7 - 10.4 | [place] | | | | | mg/dL | [facility] | | | | | [...] [address] | [place] | [phone] | | [facility] | | [address] | | | - LABORATORY | | [...] | | | | | | n [place] | | | | | + +--------+ [...] (TTE) Demographics [facility] Name | | | [facility] | | | LIZET Patient Number [id number] Date of Study | | | 10/06/2019 Visit Number [id number] Referring | | | Physician ORVILLE FULTON | | | Channeler Outsole MARY STEPHENS RDCS Number Date of | | | 1950 Interpreting ELADIA RODRIGES MD | | | Physician Age | | | 69 year(s) Nurse Gender Female | | | Stress Director Of Speech Pathology Procedure Type of Study TTE | | [...] Report | | (TTE) Demographics Patient Name [facility] Room Number 321 | | LIZET Patient Number [id number] Date of Study 10/06/2019 Visit | | Number [id number] Referring Physician ORVILLE FULTON Accession | | [id number] Channeler Outsole MARY STEPHENS AMIRA Number Date of | | 1950 Interpreting ELADIA RODRIGES MD | | Physician Age 69 year(s) Nurse Gender Female | | Stress TechnicianProcedureType of Study TTE procedure:ECHO Complete.Procedure | | DateDate: 10/06/2019 Start: 02:51 PMStudy [facility]: Adequate | | visualizationIndications:Atrial fibrillation, [...] + + | Performing | Address | City/State/[facility] | Phone Number | | Organization | [...] | | | | | | [employer] | | | | | [...] + | [address] | [address] | [place] | [phone] | | [facility] | | [address] | | | - LABORATORY | | [...] | | | | | uIU/mL | [facility] | | | | | | [...] + | [address] | [address] | [place] | [phone] | | [facility] | | [address] | | | - LABORATORY | | [...] method in use as of | | [facility] | | | | July 22, [...] [address] | [place] | [phone] | | [facility] | | [address] | | | - LABORATORY | | [...] | | | | JOSEPHINE STEVENS MD ([id number]) | | | | | | on [...] 1.001 - 1.030 | | | | [place], | | | | | | Urine [...] +---------+--------+ | [employer] | [place] | [id number] | 08/02/19 | | | Indemn | | | COMMUN | | 20-Pre | | | ity | | | ITY | | sent | | | | | | CARE | | | | | | + +--------+ +--------+ +---------+--------+ | [employer] | [place] | [id number] | 08/02/19 | | | Indemn | | | NS | | 20-Pre | | | ity | | | ADMIN | | sent | | | | | | [place] | | | | | | | | [place] | | | | | | + +--------+ +--------+ +---------+--------+ | [employer] | [place] | [id number] | | | | Indemn | | | NS | | 006-Pr | | | ity | | | ADMIN | | esent | | | | | | [place] | | | | | | | | [place] | | | | | | + +--------+ +--------+ +---------+--------+ | [employer] | [place] | [id number] | | | | Indemn | | | COMMUN | | 016-Pr | | | ity | | | ITY | | esent | | | | | | CARE | | | | | | + +--------+ +--------+ +---------+--------+ | MEDICARE | MEDICA | [id number] | | [phone] | | Medica | [...] [place] | | | 7 (Home) | [address] | + +--------+ +--------+ + + | Lizet Mcneil | Person | Self [birth year] | [address] | | | al/Fam | | 1951 | [phone] | [address] [place], [place] | | | [place] | | | 7 (Home) | [phone] | + +--------+ +--------+ + + Advance Directives + + + + + | Type | Date Recorded | Patient | Explanation | | | | Baby Sitter | | + + + + + | Power of | | | | | Coat Baster | | | | + + + [...]
--- OUTSIDE RECORDS SUMMARY | ~2019-10-20 | XMS | Encounter Summary ---
Demographics + + + | Address | [address] [facility] [address] | | | [place] [phone] | + + + | Home Phone [...] Team Providers + +------+ + | Care Cleaner Furniture Name | Role | Phone | + +------+ + PCP | Unavailable | + +------+ + Encounter Details +--------+ + + + + | Date | Type | Department | Care Team | Description | +--------+ + + + + | 11/24/ | Hospital | [facility] | [facility] | | | 2007 | Encounter | CONVERSION | MD [address] | | | | [address] | [place] [address] | | | | | [place], [place] | [phone] | | | | | [address] | | | | | | [phone] | | | +--------+ + + + [...] 2020 | Visit | | [address] [facility] | | | | | | [address] [place] | | | | | | [address] | | | | | | | | +--------+---------+ + + + documented as of this encounter Visit Diagnoses Not on filedocumented in this encounter"
--- OUTSIDE RECORDS SUMMARY | ~2019-10-20 | XMS | Encounter Summary ---
Demographics + + + | Address | [address] [facility] | | | [place] [address] | + + + | Home Phone [...] Team Providers + +------+ + | Care Chairperson Anesthesiology Name | Role | Phone | + +------+ + PCP | Unavailable | + +------+ + Encounter Details +--------+ + + + + | Date | Type | Department | Care Team | Description | +--------+ + + + + | 04/28/ | Hospital | [facility] | Niharika Hsieh | | | 2006 | Encounter | HOSPITAL EMERGENCY | MD Gretchen [address] | | | | | [place] [address] [place], | | | | | [address] [place], [place] | [place] [address] | | | | | [address] | [phone] | | | | | [phone] | | | +--------+ + + + [...] 2020 | Visit | | [address] [facility] | | | | | | 160 [place], [place] | | | | | | [address] | | | | | | | | +--------+---------+ + + + documented as of this encounter Visit Diagnoses Not on filedocumented in this encounter"
--- OUTSIDE RECORDS SUMMARY | ~2019-10-20 | XMS | Encounter Summary ---
Demographics + + + | Address | [address] [facility] [address] [facility] | | | [place] [address] | + + + | Home Phone | | + + + | Preferred Language | Unknown | + + + | Marital Status | Unknown | + + + | Hindu Affiliation | Unknown | + + + | Race | Unknown | + + + | Ethnic Group | Unknown | + + + Author + + + | Author | [facility] | | | and [place] | + + + | Organization | [facility] | | [...] Team Providers + +------+ + | Care Television Maintenance Man Name | Role | Phone | + +------+ + PCP | Unavailable | + +------+ + Encounter Details +--------+ + + + + | Date | Type | Department | Care Team | Description | +--------+ + + + + | 12/07/ | Hospital | [facility] | Maximilian Benoit | | | 2009 | Encounter | CONVERSION | MD Bethanie [address] | | | | | [address] | [place] | | | | | [address] | [place] [address] | | | | | [place], [place] | [phone] | | | | | [address] | | | | | | [phone] | | | +--------+ + + + [...] | | | | | | [address] [place] | | | | | | [address] | | | | | | | | +--------+---------+ + + + documented as of this encounter Visit Diagnoses Not on filedocumented in this encounter"
--- OUTSIDE RECORDS SUMMARY | ~2019-10-20 | XMS | Encounter Summary ---
Demographics + + + | Address | [address] [facility] | | | [place] [address] | + + + | Home Phone | | + + + | Preferred Language | Unknown | + + + | Marital Status | Unknown | + + + | Nondenominational Affiliation | Unknown | + + + [...] Team Providers + +------+ + | Care Sprayer Leather Name | Role | Phone | + +------+ + | Lizet Oliva | PCP | | + +------+ + Encounter Details +--------+ + + + + | Date | Type | Department | Care Team | Description | +--------+ + + + + | 08/02/ | Orders Only | [facility] | aMtty Bingham MD | Essential | | 2020 | | NEPHROLOGY [place] | [address] [place] | hypertension | | | | [address] | [address] [place], [place] | (Primary Dx); CKD | | | | [address] [place] | [address] | (chronic kidney | | | | [place], [place] | | disease) stage 4, | | | | [address] | | GFR 15-29 ml/min | | | | [phone] | | (HCC); Nephrotic | | | [...] [place] | | | | | | [address] | | | | | | | [...] ml/min | | | | | | ([facility]) Nephrotic | | | | [...] ml/min | | | | | | ([facility]) Nephrotic | | | | [...] ml/min | | | | | | ([facility]) Nephrotic | | | | [...] ml/min | | | | | | ([facility]) Nephrotic | | | | [...]
--- OUTSIDE RECORDS SUMMARY | ~2019-10-20 | XMS | Encounter Summary ---
Demographics + + + | Address | [address] [facility] | | | [place] [address] | + + + | Home Phone | | + + + | Preferred Language | Unknown | + + + | Marital Status | Unknown | + + + | Buddhism Affiliation | Unknown | + + + | Race | Unknown | + + + | Ethnic Group | Unknown | + + + Author + + + | Author | [facility] | | | and [place] | + + + | Organization | [facility] | | | [...] Team Providers + +------+ + | Care Foundry Equipment Mechanic Name | Role | Phone | [...] [address] | | | | | | [place], [place] | | | | | | [address] | | | | | | [phone] | | | +--------+ + + + [...] [place] | | | | | | [address] | | | | | | | | +--------+---------+ + + + documented as of this encounter Visit Diagnoses Not on filedocumented in this encounter"
--- OUTSIDE RECORDS SUMMARY | ~2019-10-20 | XMS | Encounter Summary ---
Demographics + + + | Address | [address] [facility] [address] [facility] | | | [place] [address] | + + + | Home Phone [...] Team Providers + +------+ + | Care Commissioned Fire Officer Name | Role | Phone | [...] | | | [address] | [place] [address] | | | | | [place], [place] | [phone] | | | | | [address] | | | | | | [phone] | | | +--------+ + + + [...] 2020 | Visit | | [address] [facility] | | | | | | [address] [place] | | | | | | [address] | | | | | | | | +--------+---------+ + + + documented as of this encounter Visit Diagnoses Not on filedocumented in this encounter"
--- OUTSIDE RECORDS SUMMARY | ~2019-10-20 | XMS | Encounter Summary ---
Demographics + + + | Address | [address] [facility] | | | [place] [address] | + + + | Home Phone [...] + + + | Author | [facility] | | | and [place] | + + + | Organization | [facility] | | | and [...] Team Providers + +------+ + | Care Hard Tile Setter Apprentice Name | Role | Phone | + +------+ + | Benny James MD | PCP | | + +------+ + Encounter Details +--------+ + + + + | Date | Type | Department | Care Team | Description | +--------+ + + + + | 07/27/ | Orders Only | [facility] | Art, | | | 2019 | | NEPHROLOGY [place] | Naomi Seo | | | | | [address] [place] | Body Maker | | | | | [address] [place] | | | | | | [address] | | | | | | [phone] | | | +--------+ + + + [...] | Visit | | [address] [facility] | | | | | | [address] [place], [place] | | | | | | [address] | | | | | | | [...] 1.001 - 1.030 | | | | [place], | | | | | | Urine [...]
--- OUTSIDE RECORDS SUMMARY | ~2019-10-20 | XMS | Encounter Summary ---
Demographics + + + | Address | [address] [facility] [address] [facility] [address] [facility] | | | [place] [address] | + + + | Home Phone [...] + + | Author | [facility] | | | and [place] | + + + | Organization | [facility] | | | [...] Team Providers + +------+ + | Care Dressmaking Teacher Name | Role | Phone | [...] | HOSPITAL XRAY [address] | MD Bethanie [address] | | | | | [address] | [address] | | | | | [place] | [facility] [address] | | | | | [address] | [phone] | | | | | [phone] | | | +--------+ + + + [...] Visit | | [address] [facility] | | | | | | [address] [place] | | | | | | [address] | | | | | | | | +--------+---------+ + + + documented as of this encounter Visit Diagnoses Not on filedocumented in this encounter"
--- OUTSIDE RECORDS SUMMARY | ~2019-10-20 | XMS | Encounter Summary ---
Demographics + + + | Address | [address] [facility] [address] [address] [facility] | | | [place] [address] | + + + | Home Phone [...] Providers + +------+ + | Care Field Sales Agent Name | Role | Phone | + +------+ + | Lizet Oliva | PCP | | + +------+ + Reason for Visit +--------+ + | Reason | Comments | +--------+ + | Other | Signed letter sent to [facility] for patients PCP confirmation received | +--------+ + Encounter Details +--------+ + + + + | Date | Type | Department | Care Team | Description | +--------+ + + + + | 09/01/ | Documentati | [facility] | Art, | Other (Signed letter | | 2020 | on | NEPHROLOGY [place] | Naomi Seo | sent to [facility] for | | | | [address] | Apprentice | patients PCP | | | | [address] [place] [address] | | confirmation | | | | [place], [place] | | received) | | | | [address] | | | | | | [phone] | | | +--------+ + + + [...] [place] | | | | | | [address] | | | | | | (Fax) | | +--------+---------+ + + + documented as of this encounter Visit Diagnoses Not on filedocumented in this encounter"
--- OUTSIDE RECORDS SUMMARY | ~2019-10-20 | XMS | Encounter Summary ---
Demographics + + + | Address | [address] [facility] | | | [place] [address] | + + + | Home Phone [...] Providers + +------+ + | Care Administrative Support Associate Name | Role | Phone | + +------+ + PCP | Unavailable | + +------+ + Encounter Details +--------+ + + + + | Date | Type | Department | Care Team | Description | +--------+ + + + + | 08/11/ | Hospital | [facility] | Aníbal Self | | | 2011 | Encounter | HOSPITAL EMERGENCY | MD [address] | | | | | [place] [address] | | | | | [address] [place], [place] | [place], [place] | | | | | [address] | [address] | | | | | [phone] | [phone] | | | | | | | [...] 2020 | Visit | | [address] [facility] | | | | | | 160 [place] | | | | | | [address] | | | | | | | | +--------+---------+ + + + documented as of this encounter Visit Diagnoses Not on filedocumented in this encounter"
--- OUTSIDE RECORDS SUMMARY | ~2019-10-20 | XMS | Encounter Summary ---
Demographics + + + | Address | [address] [facility] [address] [facility] [address] [facility] | | | [place] [address] | + + + | Home Phone [...] Team Providers + +------+ + | Care Industrial Arts [employer] Teacher Name | Role | Phone | [...] + + | 08/03/ | Telephone | [facility] | Matty Bingham MD | Other (RBC ua | | 2020 | | NEPHROLOGY [place] | [address] [place] | result) | | | | [address] | [address] [place], [place] | | | | | [address] [address] | [address] | | | | | [place], [place] | | | | | | [address] | | | | | | [phone] | | | +--------+ + + + [...] 2020 | Visit | | [address] [facility] | | | | | | [address] [facility] | | | | | | [address] | | | | | | | | +--------+---------+ + + + documented as of this encounter Visit Diagnoses Not on filedocumented in this encounter"
--- OUTSIDE RECORDS SUMMARY | ~2019-10-20 | XMS | Encounter Summary ---
Demographics + + + | Address | [address] [facility] | | | [place] [address] | + + + | Home Phone [...] Providers + +------+ + | Care Insurance Examining Clerk Name | Role | Phone | [address] | | | | | | [place], [place] | | | | | | [address] | | | | | | [phone] | | | +--------+ + + + [...] 2020 | Visit | | [facility] | | | | | | [address] [place] | | | | | | [address] | | | | | | | | +--------+---------+ + + + documented as of this encounter Visit Diagnoses Not on filedocumented in this encounter"
--- OUTSIDE RECORDS SUMMARY | ~2019-10-20 | XMS | Encounter Summary ---
Demographics + + + | Address | [address] [facility] | | | [place] [address] | + + + | Home Phone [...] + + + | Author | [facility] | | | and [place] | + + + | Organization | [facility] | | | [...] Team Providers + +------+ + | Care Law Office Assistant Name | Role | Phone | + +------+ + PCP | Unavailable | + +------+ + Encounter Details +--------+ + + + + | Date | Type | Department | Care Team | Description | +--------+ + + + + | 07/27/ | Hospital | [facility] | Yon Jc MD | | | 2011 | Encounter | HOSPITAL EMERGENCY | | | | | | [address] | | | | | | [address] [place], [place] | | | | | | [address] | | | | | | [phone] | | | +--------+ + + + [...] 2020 | Visit | | [facility] | | | | | | [address] [place] | | | | | | [address] | | | | | | | | +--------+---------+ + + + documented as of this encounter Visit Diagnoses Not on filedocumented in this encounter"
--- OUTSIDE RECORDS SUMMARY | ~2019-10-20 | XMS | Encounter Summary ---
Demographics + + + | Address | [address] [facility] | | | [place] [address] | + + + | Home Phone [...] Team Providers + +------+ + | Care Stripping Shovel Operator Name | Role | Phone | [...] | HOSPITAL XRAY [address] | MD Bethanie [address] | | | | | [address] | [address] | | | | | [place] | [facility] [address] | | | | | [address] | [phone] | | | | | [phone] | | | +--------+ + + + [...] 2020 | Visit | | [address] [facility] | | | | | | [address] [place] | | | | | | [address] | | | | | | | | +--------+---------+ + + + documented as of this encounter Visit Diagnoses Not on filedocumented in this encounter"
--- OUTSIDE RECORDS SUMMARY | ~2019-10-20 | XMS | Encounter Summary ---
Demographics + + + | Address | [address] [facility] | | | [place] [address] | + + + | Home Phone [...] Team Providers + +------+ + | Care Agricultural Inspector Name | Role | Phone | + +------+ + PCP | Unavailable | + +------+ + Encounter Details +--------+ + + + + | Date | Type | Department | Care Team | Description | +--------+ + + + + | 08/11/ | Hospital | [facility] | Aníbal Self | | | 2011 | Encounter | HOSPITAL EMERGENCY | MD [address] | | | | | [place] [address] | | | | | [address] [place], [place] | [place], [place] | | | | | [address] | [address] | | | | | [phone] | [phone] | | | | | | | [...] | | | | | | [address] [place] | | | | | | [address] | | | | | | | | +--------+---------+ + + + documented as of this encounter Visit Diagnoses Not on filedocumented in this encounter"
--- OUTSIDE RECORDS SUMMARY | ~2019-10-20 | XMS | Encounter Summary ---
Demographics + + + | Address | [address] [facility] | | | [place] [address] | + + + | Home Phone [...] Team Providers + +------+ + | Care Spool Cleaner Hand Name | Role | Phone | [address] | | | | | | [place], [place] | | | | | | [address] | | | | | | [phone] | | | +--------+ + + + [...] [place] | | | | | | [address] | | | | | | | | +--------+---------+ + + + documented as of this encounter Visit Diagnoses Not on filedocumented in this encounter"
--- OUTSIDE RECORDS SUMMARY | ~2019-10-20 | XMS | Encounter Summary ---
Demographics + + + | Address | [address] [facility] | | | [place] [address] | + + + | Home Phone [...] Providers + +------+ + | Care Water Plumber Name | Role | Phone | + [...] + + | 09/01/ | Telephone | [facility] | Matty Bingham MD | Pain | | 2020 | | NEPHROLOGY [place] | [address] [place] | | | | | [address] [place] | [address] [place], [place] | | | | | [address] [place], [place] | [address] | | | | | [address] | | | | | | [phone] | | | +--------+ + + + [...] 2020 | Visit | | [address] [facility] | | | | | | [address] [place] | | | | | | [address] | | | | | | | | +--------+---------+ + + + documented as of this encounter Visit Diagnoses Not on filedocumented in this encounter"
--- OUTSIDE RECORDS SUMMARY | ~2019-10-20 | XMS | Encounter Summary ---
Demographics + + + | Address | [address] [facility] | | | [place] [address] | + + + | Home Phone | | + + + | Preferred Language | Unknown | + + + | Marital Status | Unknown | + + + | Gnosticist Affiliation | Unknown | + + + | Race | Unknown | + + + | Ethnic Group | Unknown | + + + Author + + + | Author | [facility] | | | and [place] | + + + | Organization | [facility] | | | and [...] Team Providers + +------+ + | Care Fisheries Inspector Name | Role | Phone | + +------+ + PCP | Unavailable | + +------+ + Encounter Details +--------+ + + + + | Date | Type | Department | Care Team | Description | +--------+ + + + + | 04/28/ | Hospital | [facility] | Niharika Hsieh | | | 2006 | Encounter | HOSPITAL EMERGENCY | MD [address] | | | | | [place] [address] | [address] [place], | | | | | [address] [place], [place] | [place] [address] | | | | | [address] | [phone] | | | | | [phone] | | | +--------+ + + + [...] 2020 | Visit | | [address] [facility] | | | | | | 160 [place], [place] | | | | | | [address] | | | | | | | | +--------+---------+ + + + documented as of this encounter Visit Diagnoses Not on filedocumented in this encounter"
--- OUTSIDE RECORDS SUMMARY | ~2019-10-20 | XMS | Encounter Summary ---
Demographics + + + | Address | [address] [facility] | | | [place] [address] | + + + | Home Phone [...] + + + | Author | [facility] | | | and [place] | + + + | Organization | [facility] | | | and [...] Team Providers + +------+ + | Care Weed Sprayer Name | Role | Phone | + [address] | | | | | | [place], [place] | | | | | | [address] | | | | | | [phone] | | | +--------+ + + + [...] 2020 | Visit | | [address] [facility] | | | | | | [address] [place] | | | | | | [address] | | | | | | | | +--------+---------+ + + + documented as of this encounter Visit Diagnoses Not on filedocumented in this encounter"
--- OUTSIDE RECORDS SUMMARY | ~2019-10-20 | XMS | Encounter Summary ---
Demographics + + + | Address | [address] [facility] | | | [place] [address] | + + + | Home Phone [...] Team Providers + +------+ + | Care Merchandise Marker Name | Role | Phone | + [...] [address] | | | | | | [place], [place] | (Fax) | | | | | [address] | | | | | | [phone] | | | +--------+ + + + [...] 2020 | Visit | | [facility] [facility] | | | | | | 160 [place], [place] | | | | | | [address] | | | | | | | | +--------+---------+ + + + documented as of this encounter Visit Diagnoses Not on filedocumented in this encounter"
--- OUTSIDE RECORDS SUMMARY | ~2019-10-20 | XMS | Encounter Summary ---
Demographics + + + | Address | [address] [facility] | | | [place] [address] | + + + | Home Phone [...] Providers + +------+ + | Care Director Of Individual Giving Name | Role | Phone | + [...] | [address] | [place] [address] | | | | | [place], [place] | [phone] | | | | | [address] | | | | | | [phone] | | | +--------+ + + + [...] 2020 | Visit | | [address] [facility] | | | | | | 160 [place] | | | | | | [address] | | | | | | | | +--------+---------+ + + + documented as of this encounter Visit Diagnoses Not on filedocumented in this encounter"
--- OUTSIDE RECORDS SUMMARY | ~2019-10-20 | XMS | Encounter Summary ---
Demographics + + + | Address | [address] [facility] | | | [place] [address] | + + + | Home Phone | | + + + | Preferred Language | Unknown | + + + | Marital Status | Unknown | + + + | Christian Affiliation | Unknown | + + + [...] Team Providers + +------+ + | Care Sap Payroll Consultant Name | Role | Phone | [...] | | | | stage 4 | [place] | [address] [place] [address] | | | | | (severe) | [address] | [place] | | | | | (HCC) | [place] | [address] | | | | | | [address] | Phone: | | | | | | Phone: | [phone] | | | | | | [phone] | Fax: | | | | | | Fax: | [phone] | | | | | | [phone] | | + +--------+ + + + + Encounter Details +--------+---------+ + + + | Date | Type | Department | Care Team | Description | +--------+---------+ + + + | 08/01/ | Office | [facility] | Matty Bingham MD | CKD (chronic kidney | | 2020 | Visit | NEPHROLOGY [place] | [address] [place] | disease) stage 4, | | | | [address] | [address] [place], [place] | GFR 15-29 ml/min | | | | [address] [address] | [address] | (HCC) (Primary Dx); | | | | [place], [place] | | Type 2 diabetes | | | | [address] | | mellitus with | | | | [phone] | | diabetic | | | | | | nephropathy, 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 | | | | | | use of insulin | | | | | | ([facility]); Essential | | | | [...] intact PTH, uric acid, urinalysis, Urine total oicycaz-fo-gqyw tinine ratio before she comes back in [...] kidney disease) stage 4, GFR 15-29 ml/min ([facility]) 07/28/2019 Diabetes mellitus ([facility]) 07/28/2019 Hypertension 07/28/2019 Nicotine dependence [...] file Gets together: Not on file Attends religion service: Not on file Active member of [...] intact PTH, uric acid, urinalysis, Urine total equnjip-qh-uubu tinine ratio before she comes back in [...] 2019 | Visit | | [address] [facility] | | | | | | 160 [place], [place] | | | | | | [address] | | | | | | | | +--------+---------+ + + + documented as of this encounter Visit Diagnoses + + | Diagnosis | + + | CKD (chronic kidney disease) stage 4, GFR 15-29 ml/min ([facility]) - Primary Chronic kidney | | disease, Stage IV (severe) | + + | Type 2 diabetes mellitus with diabetic nephropathy, with long-term current use of | | insulin ([facility]) | + + | Essential hypertension Unspecified essential hypertension | + + | Tobacco abuse Tobacco use disorder | + + | Nephrotic range proteinuria Proteinuria | + + | Persistent proteinuria Proteinuria | + + documented in this encounter
--- OUTSIDE RECORDS SUMMARY | ~2019-10-20 | XMS | Encounter Summary ---
Demographics + + + | Address | [address] [facility] | | | [place] [address] | + + + | Home Phone [...] Team Providers + +------+ + | Care Shampoo Assistant Name | Role | Phone | [...] + + | 10/04/ | Hospital | [facility] | Paulo Ayers MD | Paroxysmal atrial | | 2019 - | Encounter | [facility] | [address] | fibrillation ([facility]); | | | | [address] | [place] | Atrial fibrillation | | 10/06/ | | [place] [address] | [address] | with RVR ([facility]); | | 2019 | | [phone] | | Acute heart failure | | | | | | with preserved | | | | | | ejection fraction | | | | | | ([facility]); CKD (chronic | | | | | | kidney disease) | | | | | | stage 4, GFR 15-29 | | | | | | ml/min ([facility]); | | | | | | [...] E' Septal Velocity 5.38 cm/s MV Deceleration [place] 700.72 cm/s2 MV Deceleration Time 132.19 msec [...] at least 3 weeks - Hospitalized in [place] for a day in August for rate [...] with RVR, would not ca ll this [place] Diabetes mellitus type 2, insulin dependent with [...] Nicole PA-C In 1 month. Specialties: Physician Thermal Molder, Cardiology Contact information: [facility] [address] [facility] [address] Discharge Medications New Medications Details [...] by: Travis Copeland MD, 10/07/2019 1:25 PM [facility] documented in this encounter Discharge Instructions [...] | | | | | | | [id number] 2 | | | | | | | [id number]= 3 | | | | | | | [id number]= 4 | | | | | | [...] of this encounter Progress Notes Leo Cerna, Appointment Specialist - 10/07/2019 3:26 PM PDTPHARMACY SERVICES: METOP [...] before initiating an y new medications (e.g., nhtl-vtq-fsaylcm) WARFARIN Indication for medication Importance of following-up with outpatient MD clinic for warfarin dosing Importance of continuation [...] before initiating an y new medications (e.g., zuty-vgk-vwbioyt) Assessment/Plan: 1. Patient was provided a handout/booklet on Metoprolol Tartrate and Warfarin 2. Patient demonstrated understanding and all questions were answered. 3. Please consult pharmacist for any further medication related education. 4. Thank you. Electronically signed by: Leo Cerna, Appointment Specialist 10/07/2019 3:27 PM Travis Membreno MD - 10/06/2019 4:22 PM PDTFormatting of this note might be different f rom the original. [facility] PMG Hospitalist Progress Note Lizet Mcneil is [...] at least 3 weeks - Hospitalized in [place] for a day in August for rate [...] with RVR, would not ca ll this [place] Diabetes mellitus type 2, insulin dependent with [...] ECGs available Confirmed by JOSEPHINE STEVENS MD ([id number]) on 10/06/2019 6:26:09 AM POC Glucose Result [...] E' Septal Velocity 5.38 cm/s MV Deceleration [place] 700.72 cm/s2 MV Deceleration Time 132.19 msec [...] above. Travis Copeland MD 10/06/2019 4:25 PM [facility], [place] rmD - 10/06/2019 [...] | | | | | | [address] [place] | | | | | | [address] | | | | | | | [...] [address] | [place] | [phone] | | [facility] | | [address] | | | - LABORATORY | | [...] [address] | [place] | [phone] | | [facility] | | [address] | | | - LABORATORY | | [...] [address] | [place] | [phone] | | [facility] | | [address] | | | - LABORATORY | | [...] [address] | [place] | [phone] | | [facility] | | [address] | | | - LABORATORY | | [...] | | | | M/uL | [facility] | | | | [...] | + + + + + | [facility] | [address] | [place] | [phone] | | [facility] | | [address] | | | - LABORATORY | | [...] 9 - 23 mg/dL | [facility] | | | | | [facility] | | | [facility] | [facility]ICAL | | | | | | CENTER - | | | | | | LABORATORY | | + + + + + + | Creatinine | 2.68 (H) | 0.55 - 1.02 | [facility] | | | | | mg/dL | [facility] | | | | | | MEDICAL | | | | | | CENTER - | | | | | | LABORATORY | | + + + + + + | eGFR if not | 18 (L)Comment: | >=60 | [facility] | | | | GLOMERULAR FILTRATION | mL/min/1.73m2 | [facility] | | | [place] | RATE,ESTIMATED | | MEDICAL | | | | mL/min/1.25l0Zolh than | | CENTER - | | [...] + | [facility] | [address] | [place] | [phone] | | [facility] | | [address] | | | - LABORATORY | | [...] [address] | [place] | [phone] | | [facility] | | [address] | | | - LABORATORY | | [...] [address] | [place] | [phone] | | [facility] | | [address] | | | - LABORATORY | | [...] | | | | | | n [place] | | | | | + +--------+ [...] (TTE) Demographics Patient Name | | | [facility] Room Number 321 | | | LIZET Patient Number [id number] Date of Study | | | 10/06/2019 Visit Number [id number] Referring | | | Physician ORVILLE FULTON | | | Eyewear Manufacturing Supervisor MARY STEPHENS [facility] Number Date of | | | 1950 Interpreting ELADIA BLACK MD | | | Physician Age | | | 69 year(s) Nurse Gender Female | | | Stress Bush Regenerator Procedure Type of Study TTE | | [...] Number 321 | | LIZET Patient Number [id number] Date of Study 10/06/2019 Visit | | Number [id number] Referring Physician ORVILLE FULTON Accession | | [id number] Eyewear Manufacturing Supervisor MARY STEPHENS, [facility] Number Date of | | 1950 Interpreting ELADIA BLACK MD | | Physician Age 69 year(s) Nurse Gender Female | | Stress TechnicianProcedureType of Study TTE procedure:ECHO Complete.Procedure | | DateDate: 10/06/2019 Start: 02:51 PMStudy [facility]qu[facility] | | visualizationIndications:Atrial fibrillation, [...] + | [facility] | [address] | [place] | [phone] | | [facility] | | [address] | | | - LABORATORY | | [...] + | [facility] [facility] | [address] | [place] | [phone] | | [facility] | | [address] | | | - LABORATORY | | [...] ST. | [address] | [place], [place] | [phone] | | [facility] | | [address] | | | - LABORATORY | | [...] [address] | [place] | [phone] | | [facility] | | [address] | | | - LABORATORY | | [...] + | [facility] | [address] | [place] | [phone] | | [facility] | | [address] | | | - LABORATORY | | [...] | mL/min/1.73m2 | [facility] | | | EG[place]IAN | RATE,ESTIMATED | | MEDICAL | | | | mL/min/1.48e0Sdfm than | | CENTER - | | [...] [address] | [place] | [phone] | | [facility] | | [address] | | | - LABORATORY | | [...] | | | | | | [employer] | | | | | [...] + + | Performing | Address | City/State[facility] | Phone Number | | Organization | | | | + + + + + | [facility] [facility] | [address] | [place] | [phone] | | [facility] | | [address] | | | - LABORATORY | | [...] 1,607 (H)Comment: New | <100 pg/mL | [facility] | | | | method in use as of | | [facility] | | | | July 22, [...] + | [facility] | [address] | [place] | [phone] | | [facility] | | [address] | | | - LABORATORY | | [...] ST. | [address] | [place], [place] | [phone] | | [facility] | | [address] | | | - LABORATORY | | [...] | | | | JOSEPHINE STEVENS MD ([id number]) | | | | | | on [...] 2.56 (H) | 0.55 - 1.02 | [facility] | | | | | mg/dL [...] mL/min/1.73m2 | [facility] | | | [place] | RATE,ESTIMATED | | MEDICAL | | | | mL/min/1.54s3Pimg than | | CENTER - | | [...] + | [facility] | [address] | [place] | [phone] | | [facility] | | [address] | | | - LABORATORY | | | | + + + + + Troponin I (10/05/2019 10:26 PM PDT) + + + + + + | Component | Value | Ref Range | Performed | Pathologist | | | | | At | Signature | + + + + + + | Troponin I | 0.06 (H)Comment: | <0.06 ng/mL | [facility] | | | | Comment:Reference | | [...] | | | | | | [employer] | | | | | [...] [address] | [place] | [phone] | | [facility] | | [address] | | | - LABORATORY | | | | + + + + + documented in this encounter Visit Diagnoses + + | Diagnosis | + + | Atrial fibrillation with RVR (HCC) - Primary Atrial fibrillation | + + | Paroxysmal atrial fibrillation (HCC) Atrial fibrillation | + + | Acute heart failure with preserved ejection fraction ([facility]) | + + | CKD (chronic kidney disease) stage 4, GFR 15-29 ml/min ([facility]) Chronic kidney disease, | | Stage IV (severe) | + + | Tobacco abuse Tobacco use disorder | + + | Type 2 diabetes mellitus with diabetic nephropathy, with long-term current use of | | insulin ([facility]) | + + | Essential hypertension Unspecified [...] | | | | | | | 1570-8643 Use NIGHT DOSE for | | | | | | | doses scheduled: HS, | | | | | | | Nighttime 2970-4377 If the BG is | | | [...] | | | | | | | 5603-2114 Use NIGHT DOSE for | | | | | | | doses scheduled: HS, | | | | | | | Nighttime 4630-7548 If the BG is | | | [...] medications/reasons PHARMACY | | | CONSULT, Starting [facility] 10/07/19 at | | | 1415, [...]
--- OUTSIDE RECORDS SUMMARY | ~2019-10-20 | XMS | Encounter Summary ---
Demographics + + + | Address | [address] [facility] | | | [place] [address] | + + + | Home Phone [...] Team Providers + +------+ + | Care Catering Barista Name | Role | Phone | + +------+ + PCP | Unavailable | + +------+ + Encounter Details +--------+ + + + + | Date | Type | Department | Care Team | Description | +--------+ + + + + | 08/11/ | Hospital | [facility] | Aníbal Self | | | 2011 | Encounter | HOSPITAL EMERGENCY | MD [address] | | | | | [address] | | | | | [address] [place], [place] | [place], [place] | | | | | [address] | [address] | | | | | [phone] | [phone] | | | | | | | [...] 2020 | Visit | | [address] [facility] | | | | | | [address] [place] | | | | | | [address] | | | | | | | | +--------+---------+ + + + documented as of this encounter Visit Diagnoses Not on filedocumented in this encounter"
--- OUTSIDE RECORDS SUMMARY | ~2019-10-20 | XMS | Encounter Summary ---
Demographics + + + | Address | [address] [facility] | | | [place] [address] | + + + | Home Phone [...] Team Providers + +------+ + | Care Floor Layer Name | Role | Phone | + +------+ + PCP | Unavailable | + +------+ + Encounter Details +--------+ + + + + | Date | Type | Department | Care Team | Description | +--------+ + + + + | 04/28/ | Hospital | [facility] | Niharika Hsieh | | | 2006 | Encounter | HOSPITAL EMERGENCY | MD [address] | | | | | [address] | [address] [place], | | | | | [address] [place], [place] | [place] [address] | | | | | [address] | [phone] | | | | | [phone] | | | +--------+ + + + [...] | | | | | | [address] [place], [place] | | | | | | [address] | | | | | | | | +--------+---------+ + + + documented as of this encounter Visit Diagnoses Not on filedocumented in this encounter"
--- OUTSIDE RECORDS SUMMARY | ~2019-10-20 | XMS | Encounter Summary ---
Demographics + + + | Address | [address] [facility] | | | [place] [address] | + + + | Home Phone [...] Team Providers + +------+ + | Care Deputy Assessor Name | Role | Phone | + +------+ + PCP | Unavailable | + +------+ + Encounter Details +--------+ + + + + | Date | Type | Department | Care Team | Description | +--------+ + + + + | 11/24/ | Hospital | [facility] | Maximilian Benoit | | | 2007 | Encounter | CONVERSION | MD [address]anie [address] | | | | | [address] | [place] | | | | | [address] | [place] [address] | | | | | [place], [place] | [phone] | | | | | [address] | | | | | | [phone] | | | +--------+ + + + [...] | Visit | | [address] [facility] [facility] | | | | | | [address] [place] | | | | | | [address] | | | | | | | | +--------+---------+ + + + documented as of this encounter Visit Diagnoses Not on filedocumented in this encounter"
--- OUTSIDE RECORDS SUMMARY | ~2019-10-20 | XMS | Encounter Summary ---
Demographics + + + | Address | [address] [facility] | | | [place] [address] | + + + | Home Phone | | + + + | Preferred Language | Unknown | + + + | Marital Status | Unknown | + + + | Yarsani Affiliation | Unknown | + + + | Race | Unknown | + + + | Ethnic Group | Unknown | + + + Author + + + | Author | [facility] | | | and [place] | + + + | Organization | [facility] | | | and [...] Team Providers + +------+ + | Care Pneumatic Tube Repairer Name | Role | Phone | [...] [address] | | | | | | [place], [place] | | | | | | [address] | | | | | | [phone] | | | +--------+ + + + [...] Visit | | [address] [facility] | | | | | | [address] [place] | | | | | | [address] | | | | | | | | +--------+---------+ + + + documented as of this encounter Visit Diagnoses Not on filedocumented in this encounter"
--- OUTSIDE RECORDS SUMMARY | ~2019-10-20 | XMS | Encounter Summary ---
Demographics + + + | Address | [address] [facility] | | | [place] [address] | + + + | Home Phone [...] Author + + + | Author | [facility] | | | and [place] | + + + | Organization | [facility] | | [...] Providers + +------+ + | Care Supervisor Stripping Name | Role | Phone | + [...] + + | 08/03/ | Telephone | [facility] | Matty Bingham MD | Other (RBC ua | | 2020 | | NEPHROLOGY SCOOTER | [address] [place] | result) | | | | [address] | [address] [place], [place] | | | | | [address] | [address] | | | | | [place], [place] | | | | | | [address] | | | | | | [phone] | | | +--------+ + + + [...] 2020 | Visit | | [address] [facility] | | | | | | [facility] | | | | | | [address] | | | | | | | | +--------+---------+ + + + documented as of this encounter Visit Diagnoses Not on filedocumented in this encounter"
--- OUTSIDE RECORDS SUMMARY | ~2019-10-20 | XMS | Encounter Summary ---
Demographics + + + | Address | [address] [facility] | | | [place] [address] | + + + | Home Phone | | + + + | Preferred Language | Unknown | + + + | Marital Status | Unknown | + + + | Presybeterian Affiliation | Unknown | + + + | Race | Unknown | + + + | Ethnic Group | Unknown | + + + Author + + + | Author | [facility] | | | and [place] | + + + | Organization | [facility] | | [...] Team Providers + +------+ + | Care Production Machine Computer Operator Name | Role | Phone | [...] | Encounter | CONVERSION | MD [address]anie [address] | | | | | [address] | [address] | | | | | [address] | [place] [address] | | | | | [place], [place] | [phone] | | | | | [address] | | | | | | [phone] | | | +--------+ + + + [...] 2020 | Visit | | [address] [facility] | | | | | | [address] [place] | | | | | | [address] | | | | | | | | +--------+---------+ + + + documented as of this encounter Visit Diagnoses Not on filedocumented in this encounter"
--- OUTSIDE RECORDS SUMMARY | ~2019-10-20 | XMS | Encounter Summary ---
Demographics + + + | Address | [address] [facility] | | | [place] [address] | + + + | Home Phone [...] Team Providers + +------+ + | Care Agile Coach Name | Role | Phone | + [...] | | [address] | [place] [address] | | | | | [place], [place] | [phone] | | | | | [address] | | | | | | [phone] | | | +--------+ + + + [...] 2020 | Visit | | [address] [facility] | | | | | | [address] [place] | | | | | | [address] | | | | | | | | +--------+---------+ + + + documented as of this encounter Visit Diagnoses Not on filedocumented in this encounter"
--- OUTSIDE RECORDS SUMMARY | ~2019-10-20 | XMS | Encounter Summary ---
Demographics + + + | Address | [address] [facility] | | | [place] [address] | + + + | Home Phone [...] Team Providers + +------+ + | Care Vinegar Maker Name | Role | Phone | [address] | | | | | | [place], [place] | | | | | | [address] | | | | | | [phone] | | | +--------+ + + + [...] [place] | | | | | | [address] | | | | | | | | +--------+---------+ + + + documented as of this encounter Visit Diagnoses Not on filedocumented in this encounter"
--- OUTSIDE RECORDS SUMMARY | ~2019-10-20 | XMS | Encounter Summary ---
Demographics + + + | Address | [address] [facility] | | | [place] [address] | + + + | Home Phone [...] Providers + +------+ + | Care Home Advisor Name | Role | Phone | + +------+ + | Lizet Oliva | PCP | | + +------+ + Reason for Visit +--------+ + | Reason | Comments | +--------+ + | Other | Signed letter sent to [place] for patients PCP confirmation received | +--------+ + Encounter Details +--------+ + + + + | Date | Type | Department | Care Team | Description | +--------+ + + + + | 09/01/ | Documentati | [facility] | Art, | Other (Signed letter | | 2020 | on | NEPHROLOGY SCOOTER | Naomi Seo | sent to [place] for | | | | [address] | Display Maker | patients PCP | | | | [address] | | confirmation | | | | [place], [place] | | received) | | | | [address] | | | | | | [phone] | | | +--------+ + + + [...] [place] | | | | | | [address] | | | | | | (Fax) | | +--------+---------+ + + + documented as of this encounter Visit Diagnoses Not on filedocumented in this encounter"
--- OUTSIDE RECORDS SUMMARY | ~2019-10-20 | XMS | Encounter Summary ---
Demographics + + + | Address | [address] [facility] | | | [place] [address] | + + + | Home Phone [...] + + | Author | [facility] | | | and [place] | + + + | Organization | [facility] | | [...] Team Providers + +------+ + | Care Sanitation Supervisor Name | Role | Phone | [...] + + | 08/03/ | Telephone | [facility] | Matty Bingham MD | Other (RBC ua | | 2020 | | NEPHROLOGY SCOOTER | [address] [place] | result) | | | | [address] | [address] [place], [place] | | | | | [address] | [address] | | | | | [place], [place] | | | | | | [address] | | | | | | [phone] | | | +--------+ + + + [...] 2020 | Visit | | [address] [facility] | | | | | | [facility] | | | | | | [address] | | | | | | | | +--------+---------+ + + + documented as of this encounter Visit Diagnoses Not on filedocumented in this encounter"
--- OUTSIDE RECORDS SUMMARY | ~2019-10-20 | XMS | Encounter Summary ---
Demographics + + + | Address | [address] [facility] | | | [place] [address] | + + + | Home Phone [...] Team Providers + +------+ + | Care Venue Manager Name | Role | Phone | [...] + + | 09/01/ | Telephone | [facility] | Matty Bingham MD | Pain | | 2020 | | NEPHROLOGY [place] | [address] [place] | | | | | [address] [place] | [address] [place], [place] | | | | | [address] [place], [place] | [address] | | | | | [address] | | | | | | [phone] | | | +--------+ + + + [...] 2020 | Visit | | [address] [facility] | | | | | | [address] [place] | | | | | | [address] | | | | | | | | +--------+---------+ + + + documented as of this encounter Visit Diagnoses Not on filedocumented in this encounter"
--- OUTSIDE RECORDS SUMMARY | ~2019-10-20 | XMS | Encounter Summary ---
Demographics + + + | Address | [address] [facility] | | | [place] [address] | + + + | Home Phone [...] Team Providers + +------+ + | Care Lockstitch Sleeve Setter Name | Role | Phone | [...] | | [address] | [place] [address] | | | | | [place], [place] | [phone] | | | | | [address] | | | | | | [phone] | | | +--------+ + + + [...] | | | | | | [address] [place] | | | | | | [address] | | | | | | | | +--------+---------+ + + + documented as of this encounter Visit Diagnoses Not on filedocumented in this encounter"
--- OUTSIDE RECORDS SUMMARY | ~2019-10-20 | XMS | Encounter Summary ---
Demographics + + + | Address | [address] [facility] | | | [place] [address] | + + + | Home Phone [...] Team Providers + +------+ + | Care Campus Police Officer Name | Role | Phone | [...] | | | | stage 4 | [place] | [address] | | | | | (severe) | [address] | [place] | | | | | (HCC) | [place] | [address] | | | | | | [address] | Phone: | | | | | | Phone: | [phone] | | | | | | [phone] | Fax: | | | | | | Fax: | [phone] | | | | | | [phone] | | + +--------+ + + + + Encounter Details +--------+---------+ + + + | Date | Type | Department | Care Team | Description | +--------+---------+ + + + | 08/01/ | Office | [facility] | Matty Bingham MD | CKD (chronic kidney | | 2020 | Visit | NEPHROLOGY SCOOTER | [address] [place] | disease) stage 4, | | | | [address] | [address] [place], [place] | GFR 15-29 ml/min | | | | [address] | [address] | (HCC) (Primary Dx); | | | | [place], [place] | | Type 2 diabetes | | | | [address] | | mellitus with | | | | [phone] | | diabetic | | | | | | nephropathy, 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 | | | | | | use of insulin | | | | | | ([facility]); Essential | | | | [...] intact PTH, uric acid, urinalysis, Urine total nwpvcxz-vv-imji tinine ratio before she comes back in [...] kidney disease) stage 4, GFR 15-29 ml/min ([facility]) 07/28/2019 Diabetes mellitus ([facility]) 07/28/2019 Hypertension 07/28/2019 Nicotine dependence [...] file Gets together: Not on file Attends taoism service: Not on file Active member of [...] intact PTH, uric acid, urinalysis, Urine total lzbnljl-vn-hjzy tinine ratio before she comes back in [...] | | | | | | [address] [place], [place] | | | | | | [address] | | | | | | | | +--------+---------+ + + + documented as of this encounter Visit Diagnoses + + | Diagnosis | + + | CKD (chronic kidney disease) stage 4, GFR 15-29 ml/min ([facility]) - Primary Chronic kidney | | disease, Stage IV (severe) | + + | Type 2 diabetes mellitus with diabetic nephropathy, with long-term current use of | | insulin ([facility]) | + + | Essential hypertension Unspecified essential hypertension | + + | Tobacco abuse Tobacco use disorder | + + | Nephrotic range proteinuria Proteinuria | + + | Persistent proteinuria Proteinuria | + + documented in this encounter
--- OUTSIDE RECORDS SUMMARY | ~2019-10-20 | XMS | Encounter Summary ---
Demographics + + + | Address | [address] [facility] | | | [place] [address] | + + + | Home Phone [...] Providers + +------+ + | Care Metal Pourer Name | Role | Phone | + [...] | [address] | [place] [address] | | | | | [place], [place] | [phone] | | | | | [address] | | | | | | [phone] | | | +--------+ + + + [...] 2020 | Visit | | [address] [facility] | | | | | | [address] [place] | | | | | | [address] | | | | | | | | +--------+---------+ + + + documented as of this encounter Visit Diagnoses Not on filedocumented in this encounter"
--- OUTSIDE RECORDS SUMMARY | ~2019-10-20 | XMS | Encounter Summary ---
Demographics + + + | Address | [address] [facility] [address] | | | [place] [address] | + + + | Home Phone [...] Providers + +------+ + | Care Senior Accounting Specialist Name | Role | Phone | + +------+ + | Benny James MD | PCP | | + +------+ + Encounter Details +--------+ + + + + | Date | Type | Department | Care Team | Description | +--------+ + + + + | 07/27/ | Orders Only | [facility] | Art, | | | 2019 | | NEPHROLOGY JUAN | Naomi Seo | | | | | [address] [place] | Information Developer | | | | | [address] [place] | | | | | | [address] | | | | | | [phone] | | | +--------+ + + + [...] 2020 | Visit | | [address] [facility] | | | | | | [address] [place], [place] | | | | | | [address] | | | | | | | [...] - 1.030 | | | | [place], | | | | | | Urine [...]
--- OUTSIDE RECORDS SUMMARY | ~2019-10-20 | XMS | Encounter Summary ---
Demographics + + + | Address | [address] [facility] [address] | | | [place] [address] | + + + | Home Phone [...] Team Providers + +------+ + | Care Nitroglycerin Supervisor Name | Role | Phone | [...] | | | [address] | [place] [address] | | | | | [place], [place] | [phone] | | | | | [address] | | | | | | [phone] | | | +--------+ + + + [...] | | | | | | [address] | | | | | | [address] | | | | | | | | +--------+---------+ + + + documented as of this encounter Visit Diagnoses Not on filedocumented in this encounter"
[~2019-10-20 21:40] MED LIST changes: -CALCIUM 500 +1 EAC2 PO; +CALCIUM 600 +1 EA13 PO; -CRESTOR10 MG PO; +CRESTOR20 MG PO; +CYCLOBENZAPRINE5 MG PO; +FISH OIL 1,0001 EAC2 PO; -FISH OIL300 MG PO; +GLUCOSAMINE CH1 EAC8 PO; -MSM-GLUCOSAMIN1 EACH PO; +VITAMIN B-12500 MCG PO; -VITAMIN B122500 MCG PO
--- OUTSIDE RECORDS SUMMARY | 2019-10-20 21:44 | XMS ---
PreManage Notification: SHARYN HAND Security Family Practice Physician Assistant Events No recent Security Events currently on file CRITERIA MET - [facility] - 2 Visits in 30 Days CARE PROVIDERS SHARYN SNYDER ANN Nurse Practitioner: Family 06/23/2018-Current PHONE: [phone] Godfrey has no Care Guidelines for this patient. Care History Medical/Surgical 07/13/2019 [facility] - PATIENT IS A AND RECEIVED SERVICES AT [facility] . - PATIENT HAS AN DIRECTOR OF OCCUPATIONAL THERAPY AT [facility]- [phone] EXT [phone]. - PATIENT PCP HAS NOT RECEIVED RECORDS FROM RECENT ED VISITS-CHW CONTACTED MEDICAL RECORDS AND PROVIDED FAX NUMBER TO HAVE RECENT ED RECORDS SENT FOR FOLLOW UP-PCP WILL BE IN CONTACT WITH PATIENT. ECordelia VISIT COUNT (12 MO.) 5 [facility] TOTAL 5 NOTE: Visits indicate total known visits. ED/UCC VISIT TRACKING (12 MO.) 10/20/2019 21:41 [facility] [place] TYPE: Emergency COMPLAINT: - SOB 10/05/2019 16:44 [facility] [place] TYPE: Emergency COMPLAINT: - DIZZINESS/SOB DIAGNOSES: - Nicotine dependence, unspecified, uncomplicated - Allergy status to other antibiotic agents status - Allergy status to sulfonamides status - Paroxysmal atrial fibrillation - Unspecified atrial fibrillation - nursing home (current) use of insulin - Type 2 diabetes mellitus without complications - Essential (primary) hypertension - Other intermediate teacher (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 - Dizziness and giddiness 09/17/2019 06:53 [facility] [place] TYPE: Emergency [...] to other specified factors, initial encounter - intermediate teacher (current) use of aspirin - Type 2 diabetes mellitus without complications - Allergy status to other antibiotic agents status - Other fpc (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 - Other bursitis of elbow, right elbow - Unspecified sprain of right elbow, initial encounter INPATIENT VISIT TRACKING (12 MO.) 10/05/2019 22:09 [facility] Sharyn FLOYD TYPE: Surgical Services DIAGNOSES: - Acute diastolic (congestive) heart failure - Chronic kidney disease, stage 4 (severe) - Afib - Tobacco use - Unspecified atrial fibrillation - Paroxysmal atrial fibrillation 09/17/2019 06:54 RUBY Kelly TYPE: Observation COMPLAINT: - NEW ONSET AFIB RVR DIAGNOSES: - Acute kidney failure, unspecified - intermediate teacher (current) use of oral hypoglycemic drugs - Chronic kidney disease, unspecified - Hypertensive chronic kidney disease with stage 1 through stag - Unspecified atrial fibrillation - Palpitations - Allergy status to sulfonamides status - nursing home (current) use of aspirin - Type 2 diabetes mellitus with diabetic nephropathy - Other intermediate teacher (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 - Type 2 diabetes mellitus with diabetic chronic kidney disease - Allergy status to other drugs, medicaments and biological sub - Nicotine dependence, unspecified, uncomplicated - Allergy status to other antibiotic agents status [email or web address]
[2019-10-20] MEDS ORDERED: MIRAPEX0.125 MG PO (22:05)
[2019-10-20] MEDS ORDERED: METOPROLOL TART25 MG PO (22:06)
[2019-10-20] MEDS ORDERED: COUMADIN5 MG PO (22:10)
--- NOTE | 2019-10-21 02:00 | NUR ---
TITRATED DILT TO 7.5 MG/HR. HR 120'S. ADEQUATE BP.
--- NOTE | 2019-10-21 02:37 | NUR ---
0115 PATIENT ARRIVED TO THE UNIT VIA STRETCHER. 2PA TO MOVE TO BED. PATIENT IS ALERT AND ORIENTED. HOWEVER DOES NOT FOLLOW SIMPLE INSTRUCTIONS WELL. HR ELEVATED 120'S. 0130 DILTIAZEM INFUSION STARTED AT 5 MG/HR. HR 110-125. BP ADEQUATE. PATIENT TOLERATING ROOM AIR. DENIES FEELING SOB AT THIS TIME. LUNGS ARE CLEAR. NON PRODUCTIVE COUGH NOTED. NO GI CONCERNS. NO EDEMA NOTED. BRUSING NOTED ON LEFT ABD/SIDE. SCABS ON RIGHT KNEE. PATIENT REPORTS FALL THE PREVIOUS NIGHT. SKIN IS SENSITIVE TO TOUCH SECOND TO PSORASIS, WHICH IS NOTED ON BOTH LOWER EXTREMITITES AND BOTH ELBOWS. PATIENT IS ALERT. HAS DIFFICULTY FINDING HER WORDS AT TIMES AND CAN BE EASILY OVERWHELMED BY QUESTIONS. ALLOWED PATIENT TO REST. PATIENT DENIES NEED TO VOID. CALL LIGHT IN REACH.
--- NOTE | 2019-10-21 04:15 | NUR ---
PATIENT RESTING IN BED. ALERT AND ORIENTED. DENIES ANY NEEDS. VS STABLE. HR 100-110. DILT DRIP TITRATED TO 5 MG/HR. IV SITE WNL. PATIENT DENIES NEED TO VOID.
--- NOTE | 2019-10-21 06:42 | NUR ---
PATIENT HAS YET TO VOID. PATIENT SLEEPING SOUNDLY. DID NOT WAKE WITH RN IN ROOM. DISCUSSED WITH . NO NEW ORDERS AT THIS TIME. ALLOWED PATIENT TO REST.
--- NOTE | 2019-10-21 07:55 | NUR ---
pt sleeping soundly at this time, vitals are wnl. pt remains in a-fib, cardizem drip is currently at 5 mg/hr. call light is within reach.
--- NOTE | 2019-10-21 08:31 | NUR ---
pt cardizem drip titrated to 7.5 mg/hr for hr of 116. pt currently sleeping soundly. all other vitals are wnl, resp rate is even and unlabored.
--- NOTE | 2019-10-21 08:48 | NUR ---
diltiazem drip titrated up to 10 mg/hr per hr off 111.
[2019-10-21] MEDS ORDERED: LASIX40 MG PO (10:24)
[2019-10-21] MEDS ORDERED: ARTIFICIAL TEAR15 M6 OU (10:27)
[2019-10-21] MEDS ORDERED: IPRAT-ALBUT 0.5-3 ML INH (10:33)
[2019-10-21] MEDS ORDERED: SPIRULINA500 MG PO (10:39)
[2019-10-21] MEDS ORDERED: APPLE CIDER VI500 MG PO (10:40)
[2019-10-21] MEDS ORDERED: WARFARIN SODIUM5 MG PO (11:18)
--- NOTE | 2019-10-21 11:19 | NUR ---
MED REC COMPLETE
--- NOTE | 2019-10-21 11:53 | NUR ---
TITRATED CARDIZEM DRIP TO 5 MG/HR FROM 10 MG/HR FOR HR IN 70'S-80'S
--- NOTE | 2019-10-21 12:05 | NUR ---
PT DILTIAZEM DRIP OFF DUE TO HR IN 70'S-80'S
--- NOTE | 2019-10-21 13:00 | NUR ---
Spoke with Lizet. She lives in [place] in an apartment. [facility]. She is retired [employer]. Uses a quad cane and another specialty cane when needed. Lives in low income housing. Jovanni need for [employer] or food bank. Will remain in CCU today. Plans on dc to home when cleared medically.
--- NOTE | 2019-10-21 13:05 | NUR ---
I KNOCKED AND INTRODUCED MYSELF, PT HAD A BLANK STARE AND DID NOT RESPOND FOR A MOMENT. SHE LATER CONFESSED THAT SHE WAS STARTLED THINKING I WAS SOME- ONE ELSE SHE KNEW. PT SHARED SHE IS FEELING MUCH BETTER AND HAS BEEN VERY BUSY WITH ARRANGEMENTS TO HAVE HER HOME CARED FOR WHILE SHE IS HERE. HAD PLEASANT VISIT, PT REQUESTED PR[facility]ER AND ACCEPTED A [facility]
--- NOTE | 2019-10-21 13:12 | EKG ---
[facility] [address] [facility] [place] [address] Signed Atrial fibrillation with rapid ventricular response Possible Inferior infarct , age undetermined ST \T\ T wave abnormality, consider anterolateral ischemia Abnormal ECG When compared with ECG of 05-OCT-2019 19:59, Atrial fibrillation has replaced Sinus rhythm Vent. rate has increased BY [address] now depressed in Anterolateral leads T wave inversion more evident in Inferior leads T wave inversion now evident in Anterolateral leads Confirmed by RODRIGO WALL MD ([id number]) on 10/21/2019 1:12:14 PM Electronically Signed By: RODRIGO WALL MD 10/21/19 1312 PATIENT NAME: SHARYN HAND Electrocardiogram DATE OF : 48 PHYSICIAN: RODRIGO WALL MD REPORT #: [id number] REPORT IS CONFIDENTIAL AND NOT TO BE RELEASED WITHOUT AUTHORIZATION
--- NOTE | 2019-10-21 14:30 | NUR ---
PT ONE PERSON ASSIST TO STAND AND PIVOT TO BEDSIDE COMMODE.
--- NOTE | 2019-10-21 15:10 | NUR ---
PT BACK TO BED FROM BEDSIDE COMMODE. PT ABLE TO HAVE MEDIMUM HARD FORMED STOOL AND VOIDS 300 ML AGNES URINE. TWO PERSON ASSIST BACK TO BED. PT HAS ATTENDS IN PLACE.
--- NOTE | 2019-10-21 15:15 | NUR ---
CONVERTED TO SINUS RHYTHY - AT APPROXIMATLY 1455 THE PT CONVERTED TO SINUS RHYTHM. CALLED TO NOTIFY. NO NEW ORDERS AT THIS TIME. WILL CONTINUE TO MONITOR.
--- NOTE | 2019-10-21 15:30 | NUR ---
PT IS SITTING UP IN BED STILL WORKING ON HER LUNCH. BLOOD GLUCOSE TESTED AND FOUND TO BE 157, SO FAR PT HAS ONLY BEEN ABLE TO EAT 20% OF HER MEAL. WILL HOLD NOON INSULIN DUE TO POOR INTAKE. NEXT CBG DUE AT 1700 AND SLIDING SCALE INSULIN.
--- NOTE | 2019-10-21 17:19 | NUR ---
PT SITTING UP IN BED TALKING ON PHONE WITH SON. PT VITALS REMAIN WNL. HR STILL SINUS RHYTHM. PT SLOWLY EATING THE REST OF HER LUNCH. PT DENIES PAIN, NAUSEA, AND SOB. IV SITES ARE INTACT, NO REDNESS OR SWELLING NOTED, PT DENIES PAIN AT EITHER SITE, FLUSHES AND FLUIDS INFUSE EASILY.
--- NOTE | 2019-10-21 19:00 | NUR ---
pt sitting up in bed working on eating dinner. pt denies any other needs at this time. all vitals remain wnl.
--- NOTE | 2019-10-21 19:31 | NUR ---
SHIFT REPORT RECIEVED FROM PALOMO CASTELLON. PT RESTING IN BED, EATING DINNER. PT REPOSITIONED. IVs FLUSHED WELL, CDI, WNL. CMS INTACT. IV FLUID INFUSING PER ORDER. NO OTHER NEEDS AT THIS TIME. CALL LIGHT IN REACH.
--- NOTE | 2019-10-21 20:22 | NUR ---
ASSESSMENT COMPLETED. VS AND I&O COMPLETED. DRY SKIN NOTED ON BLE. IVs WNL, CDI. PT UP TO BSC, 1PA, FWW. LUNGS CLEAR. HR SR 66. PT OREINTED X3. PT DINNER REHEATED. NO OTHER NEEDS. CALL LIGHT IN REACH.
--- NOTE | 2019-10-21 21:23 | NUR ---
SCHEDULED MEDS PROVIDED. CBG 121, NO COVERAGE REQUIRED. PT EATING DINNER STILL. NO OTHER NEEDS AT THIS TIME. CALL LIGHT IN REACH.
--- NOTE | 2019-10-21 22:20 | NUR ---
IV PUMP ALARMING, IV SL. DINNER TRAY FINISHED WITH 50% OF MEAL EATEN. NO OTHER NEEDS AT THIS TIME. CALL LIGHT IN REACH.
--- NOTE | 2019-10-21 23:35 | NUR ---
PT AWAKE IN ROOM. ASSESSMENT COMPLETED. PT STATES SHE "KEEP JERKING MYSELF AWAKE." PT REPOSITIONED, LIGHTS OUT, WARM BLANKET OFFERED. PT DENIES PAIN. LUNGS CLEAR. NO OTHER NEEDS AT THIS TIME. CALL LIGHT IN REACH.
--- NOTE | 2019-10-22 00:51 | NUR ---
PT RESTING IN BED, EYES CLOSED. RR EVEN, UNLABORED. HR SR @ 64. CALL LIGHT IN REACH.
--- NOTE | 2019-10-22 02:33 | NUR ---
PT CALLS TO USE BSC, 1PA, FWW. PT STATES SHE HAS PAIN IN HER NECK AND LEGS, PRN PAIN MED PROVIDED. VS AND I&O COMPLETED. PT REPOSITIONED. NO OTHER NEEDS. CALL LIGHT IN REACH.
--- NOTE | 2019-10-22 03:20 | NUR ---
PT RESTING IN BED, EYES CLOSED. RR EVEN, UNLABORED. HR SR @ 61. CALL LIGHT IN REACH.
--- NOTE | 2019-10-22 04:54 | NUR ---
PT COUGHING IN ROOM. PT OFFERED DRINK, PT DECLINES. PT STATES SHE "JUST GET COUGHING FITS." ASSESSMENT COMPLETED. LUNGS CLEAR. HR SR @ 71. PT DENIES PAIN AT THIS TIME. IVs WNL. PT DENIES NEED TO USE BSC. CALL LIGHT IN REACH.
--- NOTE | 2019-10-22 05:46 | NUR ---
PT SLEPT OFF AND ON THIS SHIFT. VSS, UO SUFFICIENT. PT ATE ABOUT 50% OF DINNER. PT HAD PAIN IN NECK AND LEGS, MANAGED WITH PRN PAIN MED. HR SR TRENDING 60s-70s. PT TRANSFERS 1PA, FWW TO [facility], TOLERATES WELL. PT TOLERATED IVs, TELE AND MEDS WELL. LUNG SOUNDS CLEAR, OCCASIONAL DRY COUGH. CBG 121, NO COVERAGE REQUIRED. SPO2 TENDING IN HIGH 90s, RA.
--- NOTE | 2019-10-22 06:10 | NUR ---
VS AND I&O COMPLETED. PT RESTING IN BED, EYES CLOSED. RR EVEN, UNLABORED. HR SR @ 60. CALL LIGHT IN REACH.
--- NOTE | 2019-10-22 09:45 | NUR ---
PT SITTING UP IN BED EATING BREAKFAST. PT ALERT AND ORIENTED X4. PT DENIES SOB, PAIN, AND NAUSEA. HR REMAINS IN SINUS RHYTHM, ALL OTHER VITALS WNL WELL.
--- NOTE | 2019-10-22 10:30 | NUR ---
Spoke with Lizet. She states she thinks she feels better, but remains fatigued. May transfer to the floor today per 0830 meeting. States she was on the floor at home for 7 hours when she fell. Discussed emergency alert and pt states she will look into it.
--- NOTE | 2019-10-22 11:53 | NUR ---
PT AMBULATING IN THE [facility] WITH PHYSICAL THERAPY, ONE PERSON ASSIST, WALKER, AND WHEELCHAIR IN CASE OF FATIGUE/RESCUE. PT VICK ACTIVITY WELL. ALL LINENS ON BED CHANGED WHILE PT OUT OF THE ROOM.
--- NOTE | 2019-10-22 14:21 | NUR ---
PATIENT WAS ADMITTED AT RISK FOR MALNUTRITION DUE TO EATING POORLY RECENTLY AND UNSURE ABOUT WEIGHT LOSS. SHE HAS HAD POOR INTAKE FOR ABOUT 1 MONTH. SHE GOT HOME FROM [facility] IN [place], THEN IT WAS DIFFICULT FOR HER TO GET UP OFF THE COUCH OR THE BED, SO SHE WASN'T EATING VERY MUCH. SHE HAS UPPER DENTURES AND IS MISSING A FEW BOTTOM TEETH. SHE WAS SPEAKING SLOWLY AND WASN'T MAKING A LOT OF SENSE THIS AFTERNOON. I ASKED HER IF SHE HAD ANY ENSURE OR BOOST AT HOME AND SHE SAID NO. I EXPLAINED HAVING SOME AT HOME WOULD BE GOOD FOR HER, BECAUSE THEY PROVIDE CALORIES, PROTEIN, VITAMINS, AND MINERALS. I TOLD HER THERE ARE LOWER SUGAR DRINKS OUT THERE FOR DIABETES PATIENTS. AWAIT DISCHARGE PLANS FOR TALKING MORE ABOUT NUTRITIONAL SUPPLEMENTS WITH PATIENT.
--- NOTE | 2019-10-22 15:05 | NUR ---
PT LAYING DOWN FOR A NAP AT THIS TIME. SHE DENIES PAIN, NAUSEA, AND SOB. CALL LIGHT IS WITHIN REACH.
--- NOTE | 2019-10-22 18:25 | NUR ---
pt transfered to room 121 on med/surg. all personal belongings went with pt. pt transfered via chair. pt slightly confused with move, reoriented and assisted pt to call her son. pt states she felt better.
--- NOTE | 2019-10-22 19:07 | NUR ---
full report given to micaela carrion. all questions answered.
--- NOTE | 2019-10-22 19:30 | NUR ---
SHIFT REPORT RECIEVED FROM PALOMO CASTELLON. PT UP IN CHAIR, WATCHING TV. NO NEEDS AT THIS TIME. CALL LIGHT IN REACH.
--- NOTE | 2019-10-22 21:31 | NUR ---
VITALS AND I&OS DONE AND CHARTED. HELPED PT GET TO THE BED FROM HER CHAIR. BEDSIDE TABLE AND CALL LIGHT IN REACH. BED ALARM SET. PUT TELE BACK ON AFTER SHE TOOK ALL OF THE STICKERS OFF.
--- NOTE | 2019-10-22 21:41 | NUR ---
ASSESSMENT COMPLETED. SCHEDULED MEDS PROVIDED. PT DENIES PAIN. TELE SR @ 72. CMS INTACT. CBG 179, COVERAGE PROVIDED. LUNGS CLEAR. LEGS AND ARMS HAVE DRY AREAS OF SKIN. SCAB ON RIGHT KNEE. ICE WATER PROVIDED. IC CDI, WNL, FLUSHED WELL. NO OTHER NEEDS, CALL LIGHT IN REACH.
--- NOTE | 2019-10-23 00:15 | NUR ---
PT RESTING IN BED, EYES CLOSED. RR EVEN, UNLABORED. TELE HR SR @ 66. CALL LIGHT IN REACH.
--- NOTE | 2019-10-23 01:24 | NUR ---
BED ALARM SOUNDED, PT SAT UP IN BED. ASSISTED HER TO THE RESTROOM SBA WITH FWW. SHE IS BACK IN BED AND DENIES FURTHER NEEDS AT THIS TIME. CALL LIGHT IS WITHIN REACH AND BED ALARM IS ON.
--- NOTE | 2019-10-23 03:30 | NUR ---
PT RESTING IN BED, EYES CLOSED. RR EVEN, UNLABORED TELE HR SR @60. CALL LIGHT IN REACH. BED ALARM ON.
--- NOTE | 2019-10-23 04:50 | NUR ---
HELPED PT TO THE BATHROOM AND BACK TO BED WITH HER FWW. VITALS AND I&OS DONE AND CHARTED. BEDSIDE TABLE AND CALL LIGHT IN REACH. BED ALARM SET.
--- NOTE | 2019-10-23 04:55 | NUR ---
PT AWAKE IN ROOM. ASSESSMENT COMPLETED. LUNGS CLEAR. CMS INTACT. TELE HR SR @ 61. SCAB ON RIGHT KNEE NOTED. NO EDEMA NOTED. NO NEEDS AT THIS TIME. CALL LIGHT IN REACH.
--- NOTE | 2019-10-23 06:30 | NUR ---
PT SLEPT WELL THIS SHIFT. NO PAIN, SOB OR NAUSEA REPORTED. TELE HR SR TRENDING IN 60s. PT IS A SBA, FWW TO BR, TOLERATES WELL. IV WNL, FLUSHED WELL.
--- NOTE | 2019-10-23 07:42 | NUR ---
REPORT RECEIVED. PT IN BED LYING ON RIGHT SIDE WITH EYES CLOSED. RESPIRATIONS EQUAL AND NONLABORED. CALL LIGHT IN REACH. BED ALARM IN PLACE.
--- NOTE | 2019-10-23 07:52 | NUR ---
PATIENT SLEEPING. CALL LIGHT WITHIN REACH.
--- NOTE | 2019-10-23 09:29 | NUR ---
PATIENT USING THE BATHROOM. PATIENT BACKS TO CHAIR. ONE PERSON ASSISTING. WARM BLANKET PROVIDED. VITAL SIGNS DONE BY RN. I&O DONE. PATIENT'S BREAKFAST ORDERED. CALL LIGHT WITHIN REACH. NO OTHER NEEDS AT THIS TIME
--- NOTE | 2019-10-23 09:30 | NUR ---
PT ASSISTED TO BATHROOM THEN TO CHAIR FOR BREAKFAST. ASSESSMENT COMPLETED. LUNGS CLEAR, HEART SOUNDS REGULAR. BOWEL TONES ACTIVE. PT IS ALERT AND ORIENTED X3. NO PAIN. CALL LIGHT IN REACH.
[2019-10-23] MEDS ORDERED: METOPROLOL SUC100 MG PO (09:55)
--- NOTE | 2019-10-23 10:53 | NUR ---
TELE DC'D PER ORDER.
--- NOTE | 2019-10-23 11:48 | NUR ---
PT OUT AMBULATING HALLS WITH PHYSICAL THERAPY.
--- NOTE | 2019-10-23 13:20 | NUR ---
ASSISTED PT WITH SHOWER. IV DC'D AND WNL. PT EATING LUNCH BEFORE DISCHARGE.
--- NOTE | 2019-10-23 13:24 | NUR ---
PATIENT SITTING UP ON THE EDGE OF THE BED. VITAL SIGNS AND I&O DONE. CALL LIGHT WITHIN REACH. NO OTHER NEEDS AT THIS TIME
--- NOTE | 2019-10-25 08:57 | NUR ---
Pt discharged over the weekend. Per RN pt requested HH from [facility]. Chart scanned to [facility].
== END 2019-10-23 14:00 | disposition home health service (06) | DRG 309 ==
LOC: ED 21:40 → CCU 21:42 → MS 10-22 18:10
PROVIDERS: ADMIT Internal Medicine
DX: I48.0 Paroxysmal atrial fibrillation (principal); N18.4 Chronic kidney disease, stage 4 (severe); E86.0 Dehydration; E83.52 Hypercalcemia; E11.22 Type 2 diabetes mellitus with diabetic chronic kidney disease; I12.9 Hypertensive chronic kidney disease with stage 1 through stage 4 chronic kidney disease, or unspecified chronic kidney disease; E78.5 Hyperlipidemia, unspecified; F17.200 Nicotine dependence, unspecified, uncomplicated; N28.9 Disorder of kidney and ureter, unspecified; R29.6 Repeated falls; Z20.828 Contact with and (suspected) exposure to other viral communicable diseases; Z79.01 Long term (current) use of anticoagulants; Z79.4 Long term (current) use of insulin; Z79.899 Other long term (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; Z88.1 Allergy status to other antibiotic agents; Z88.2 Allergy status to sulfonamides; Z88.8 Allergy status to other drugs, medicaments and biological substances
CPT/HCPCS: 36415; 71045; 80048; 80053; 83036; 83735; 83880; 84484; 85025; 85610; 93005; 93010; 96374; 97116; 97162; 97530; 99285-25; 99406; J1815; J3475; J3480; J7121; U0002

== ENCOUNTER 2019-11-13 15:08 | Observation (INO) | payer OTHER ==
[~2019-11-13] VITALS: Ht 167.6 cm; Wt 75.5 kg
--- OUTSIDE RECORDS SUMMARY | ~2019-11-13 | XMS | Encounter Summary ---
Demographics + + + | Address | [address] [facility] [address] | | | [place] [phone] | + + + | Home Phone | | + + + | Preferred Language | Unknown | + + + | Marital Status | Unknown | + + + | Sikhism Affiliation | Unknown | + + + | Race | Unknown | + + + | Ethnic Group | Unknown | + + + Author + + + | Author | [facility] | | | and [place] | + + + | Organization | [facility] | | | and [place] | + + + | Address | Unknown | + + + | Phone | Unavailable | + + + Support + + +---------+ + | Name | Relationship | Address | Phone | + + +---------+ + | Kenan Yehmike | ECON | Unknown | | + + +---------+ + Care Team Providers + +------+ + | Care Drafting Teacher Name | Role | Phone | + +------+ + PCP | Unavailable | + +------+ + Encounter Details +--------+ + + + + | Date | Type | Department | Care Team | Description | +--------+ + + + + | 04/28/ | Hospital | [facility] | Niharika Hsieh | | | 2006 | Encounter | HOSPITAL EMERGENCY | MD [address] | | | | [place] [address] [place] [place], [place] | [place] [address] | | | | | [phone] | [phone] | | | | | [phone] | | | +--------+ + + + [...] as of this encounter Plan of Treatment Not on filedocumented as of this encounter Visit Diagnoses Not on filedocumented in this encounter"
--- OUTSIDE RECORDS SUMMARY | ~2019-11-13 | XMS | Encounter Summary ---
Demographics + + + | Address | [address] [facility] [address] | | | [place] [address] | + + + | Home Phone | | + + + | Preferred Language | Unknown | + + + | Marital Status | Unknown | + + + | Mu-Ism Affiliation | Unknown | + + + | Race | Unknown | + + + | Ethnic Group | Unknown | + + + Author + + + | Author | [facility] | | | and [place] | + + + | Organization | [facility] | | [...] Team Providers + +------+ + | Care Weeder Thinner Name | Role | Phone | + +------+ + | Lizet Snyder | PCP | | + +------+ + [...] + + | 11/01/ | Emergency | [facility] | Naeem Bruce MD | 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 For | | | | | | tablet | muscle spasms | | | | | + + + +---------+ + + | fish oil 1,000 mg | Take 2,000 mg by | | 0 | | | | capsule | mouth 2 times daily. | | | | | + + + +---------+ + + | furosemide (LASIX) | Take 40 mg by mouth | | 0 | 04/17/20 | | | 40 mg tablet | 2 times daily. | | | 19 | | + [...] | | | | | | | [id number]= 2 | | | | | | | [id number]= 3 | | | | | | | [id number]= 4 | | | | | | | units>350= 5 units | | | | | + + + +---------+ + + | insulin glargine | Inject 25 Units | 3 mL | 0 | // | | | (LANTUS SOLOSTAR) | under [...] 1 TABLET BY | | 0 | 10/23/19 | | | succinate | MOUTH ONCE [...] | Vitamins-Minerals | | | | | | | (MULTIVITAL PO) | | | | | | + + + +---------+ + + | rivaroxaban | Take 1 tablet by | 90 | 3 | 11/04/19 | | | (XARELTO) 20 mg | mouth Daily (with | tablet | | 20 | | | tablet | dinner). | | [...] Morocho RN at 0 11/02/2019 3:43 PM PDTNaeem Bruce MD - 11/02/2019 3:35 PM PDTFormatting of this note migh t be different from the original. [facility] Mcneil Emergency Department Encounter Note [address] [place] [address] PCP:JOEL Salvador [phone] CHIEF COMPLAINT: Chief Complaint [...] HISTORY Past Medical History: Diagnosis Date A-fib ([facility]) CKD (chronic kidney disease) stage 4, GFR 15-29 ml/min ([facility]) 07/28/2019 Diabetes mellitus (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 (See chart for [...] Specialty: Family Nurse Practitioner Contact information: [address] [place] [address] [facility]. Specialty: Emergency Medicine Why: If symptoms worsen Contact information: [address] [place] [address] Naeem Bruce MD 11/02/19 [id number] documented in this encou nter Plan of Treatment + +------+--------+ + + | Name | [...] | | n - | | | | | | 2019 | | | [...] | | | FICATI | | | ON? | | | | | | 0 | | | 15:28? | | | TAUFEN | | | -MILLS | | | AM, | | | LIZET?M | | | RN: | | | [id number] | | | [id number] | | | riteri | | | [...] | | | LIZET | | | SNYDER | | | 0 | | | 2020-0 | | | 3-17 | | | PREGAB | | | DI | | | 25 MG | | | CAPSUL | | | E 60 | | | LIZET | | | SNYDER | | | 0 | | | 2020-0 | | | 1-28 | | | LYRICA | | | 25 MG | | | | | | CAPSUL | | | E 60 | | | LIZET | | | SNYDER | | | 5 0 | | | 2020-0 | | | 1-16 | | | LYRICA | | | 25 MG | | | | | | CAPSUL | | | E 60 | | | LIZET | | | SNYDER | | | 5 0 | | [...] | | | St. | | | [place] | | | y | | | [...] | | | St. | | | [place] | | | y H. | | [...] | | | St. | | | [place] | | | y H. | | | [place] | | | [place] | | | Emerge | | | ncy | | | Chief | | | Compla | | | int: | | | SOB | | | May | | | 12, | | | 2020 | | | [facility] | | | [facility] | | | [place] | | | y H. | | [...] | | | St. | | | [place] | | | y H. | | [...] | | | St. | | | [place] | | | y H. | | [...] | | | St. | | | [place] | | | y H. | | [...] | | | St. | | | [place] | | | y H. | | [...] | | | St. | | | [place] | | | y H. | | [...] | | | St. | | | [place] | | | y H. | | [...] | | | Dates | | | SNYDER | | | , LIZET | | | SAMMY, | | | [id number] | | | [id number] | | | [...] | | | otify/ | | | [id number] | | | [phone] | | | [phone] | | | -a9aa- | | | [id number] | | | [id number] | | | [...]
--- OUTSIDE RECORDS SUMMARY | ~2019-11-13 | XMS | Encounter Summary ---
Demographics + + + | Address | [address] [facility] [address] | | | [place] [address] | + + + | Home Phone | | + + + | Preferred Language | Unknown | + + + | Marital Status | Unknown | + + + | Church Affiliation | Unknown | + + + | Race | Unknown | + + + | Ethnic Group | Unknown | + + + Author + + + | Author | [facility] | | | and [place] | + + + | Organization | [facility] | | | [...] Team Providers + +------+ + | Care Finish Rolls Operator Name | Role | Phone | + +------+ + PCP | Unavailable | + +------+ + Encounter Details +--------+ + + + + | Date | Type | Department | Care Team | Description | +--------+ + + + + | 12/07/ | Hospital | [facility] | Maximilian Benoit | | | 2009 | Encounter | CONVERSION | MD [address] | | | | | [address] | [address] | [place] [address] | | | | | [place], [place] | [phone] | | | | | [address] | | | | | | [phone] | | | +--------+ + + + [...]
--- OUTSIDE RECORDS SUMMARY | ~2019-11-13 | XMS | Encounter Summary ---
Demographics + + + | Address | [address] [facility] [address] | | | [place] [address] | + + + | Home Phone | | + + + | Preferred Language | Unknown | + + + | Marital Status | Unknown | + + + | Yarsani Affiliation | Unknown | + + + | Race | Unknown | + + + | Ethnic Group | Unknown | + + + Author + + + | Author | [facility] | | | and [place] | + + + | Organization | [facility] | | | and [place] | + + + | Address | Unknown | + + + | Phone | Unavailable | + + + Support + + +---------+ + | Name | Relationship | Address | Phone | + + +---------+ + | Kenan Quique | ECON | Unknown | | + + +---------+ + Care Team Providers + +------+ + | Care Postpartum Rn Name | Role | Phone | + +------+ + PCP | Unavailable | + +------+ + Encounter Details +--------+ + + + + | Date | Type | Department | Care Team | Description | +--------+ + + + + | 11/13/ | [facility] | [facility] | | | | 2006 | Encounter | MED CTR XRAY [address] | | | | | [place] | | | | | | [place] [address] | | | | | | [phone] | | | +--------+ + + + [...]
--- OUTSIDE RECORDS SUMMARY | ~2019-11-13 | XMS | Encounter Summary ---
Demographics + + + | Address | [address] [facility] [address] | | | [place] [address] | + + + | Home Phone | | + + + | Preferred Language | Unknown | + + + | Marital Status | Unknown | + + + | Druze Affiliation | Unknown | + + + | Race | Unknown | + + + | Ethnic Group | Unknown | + + + Author + + + | Author | [facility] | | | and [place] | + + + | Organization | [facility] | | | [...] Team Providers + +------+ + | Care Staff Air Defense Officer Name | Role | Phone | + +------+ + PCP | Unavailable | + +------+ + Encounter Details +--------+ + + + + | Date | Type | Department | Care Team | Description | +--------+ + + + + | 11/09/ | Hospital | [facility] | Blanca Almaraz | | | 2007 | Encounter | CONVERSION | Krystal MALDONADO | | | | | DEPARTMENT [address] | | | | | | [place], [place] | | | | | | [address] | | | | | | [phone] | | | +--------+ + + + [...]
--- OUTSIDE RECORDS SUMMARY | ~2019-11-13 | XMS | Encounter Summary ---
Demographics + + + | Address | [address] [facility] [address] | | | [place] [address] | + + + | Home Phone | | + + + | Preferred Language | Unknown | + + + | Marital Status | Unknown | + + + | Uatsdin Affiliation | Unknown | + + + | Race | Unknown | + + + | Ethnic Group | Unknown | + + + Author + + + | Author | [facility] | | | and [place] | + + + | Organization | [facility] | | | [...] Team Providers + +------+ + | Care Ortho Assistant Name | Role | Phone | + [...] + + | 09/01/ | Telephone | [facility] | Matty Bingham MD | Pain | | 2020 | | NEPHROLOGY [place] | [address] [place] | | | | | [address] [place] | [address] [place], [place] | | | | | [address] [place], [place] | [address] | | | | | [address] | | | | | | [phone] | | | +--------+ + + + [...] Matty Bingham MD - 09/02/2019 3:28 PM PDTEliotar Colleague, The patient called earlier today complaining of leg pain. She was under the impression we'd stopped her Gabapentin, which is not accurate. We called her PCP's office & found out that it was held thru her PCP at the [place], as there was concern about toxicity of this medication i n the setting of her chronic kidney disease (CKD). I called back [phone] ext [phone] & spoke with the RN in charge [...] or m anage pain/neuropathy medications. Best, MD [facility] documented in this enco unter Plan of Treatment Not on filedocumented as of this encounter Visit Diagnoses Not on filedocumented in this encounter"
--- OUTSIDE RECORDS SUMMARY | ~2019-11-13 | XMS | Clinical Summary ---
Demographics + + + | Address | [address] [facility] [address] | | | [place] [address] | + + + | Home Phone | | + + + | Preferred Language | Unknown | + + + | Marital Status | Unknown | + + + | Anabaptist Affiliation | Unknown | + + + | Race | Unknown | + + + | Ethnic Group | Unknown | + + + Author + + + | Author | [facility] | | | and [place] | + + + | Organization | [facility] | | [...] Team Providers + +------+ + | Care Chainstitch Binder Name | Role | Phone | + +------+ + | Lizet Oliva | PCP | | + +------+ + Allergies + + + + + + | Active Allergy | Reactions | Severity | Noted | Comments | | | | | Date | | + + + + + + | Baclofen | Other (See Comments) | | 07/28/19 | Unspecified | | | | | 20 | reaction | + + + + + + | Ciprofloxacin | Other (See Comments) | | 07/28/19 | Unspecified | | | | | 20 | reaction | + + + + + + | Sulfa Antibiotics | Other (See Comments) | | 07/28/19 | Unspecified | | | | | 20 | reaction | + + + + + + Medications + + + +---------+------+------+-------+ | Medication | Sig | Dispensed | Refills | Star | End | Statu | | | | | | t | Date | s | | | | | | Date | | | + + + +---------+------+------+-------+ | furosemide (LASIX) | Take 40 mg by mouth | | 0 | 04/1 | | Activ | | 40 mg tablet | 2 times daily. | | | 7/20 | | e | | | | | | 19 | | | + + + +---------+------+------+-------+ | albuterol 5 mg/mL | Take 2.5 mg by | | 0 | | | Activ | | nebulizer solution | nebulization every 6 | | | | | e | | | hours as needed. | | | | | | + + + +---------+------+------+-------+ | albuterol 90 | Inhale 2 puffs into | | 0 | | | Activ | | mcg/puff inhaler | the lungs 4 times | | | | | e | | | daily as needed for | | | | | | | | Wheezing or | | | | | | | | Shortness of Breath. | | | | | | + + + +---------+------+------+-------+ | | Place 1 drop into | | 0 | | | Activ | | carboxymethylcellulo | both eyes. Two to | | | | | e | | se (REFRESH TEARS) | three times daily | | | | | | | 0.5% ophthalmic | for dry eye | | | | | | | solution | | | | | | | + + + +---------+------+------+-------+ | cyclobenzaprine | Take 5 mg by mouth 3 | | 0 | | | Activ | | (FLEXERIL) 5 MG | times daily. For | | | | | e | | tablet | muscle spasms | | | | | | + + + +---------+------+------+-------+ | insulin aspart | Inject 5 Units under | | 0 | | | Activ | | (NOVOLOG PENFILL) | the skin 3 times | | | | | e | | 100 units/mL | daily (before | | | | | | | injection cartridge | meals). Per sliding | | | | | | | | scale: 150-199= 1 | | | | | | | | lnxl512-732= 2 | | | | | | | | -459= 3 | | | | | | | | mdsso168-035= 4 | | | | | | | | units>350= 5 units | | | | | | + + + +---------+------+------+-------+ | liraglutide | Inject 1.8 mg under | | 0 | | | Activ | | (VICTOZA) 18 mg/3 mL | the skin Daily. | | | | | e | | injection | | | | | | | + + + +---------+------+------+-------+ | calcium-vitamin D | Take 1 tablet by | | 0 | | | Activ | | (OSCAL) 500 mg-200 | mouth Daily. | | | | | e | | units per tablet | | | | | | | + + + +---------+------+------+-------+ | [facility] | Take by mouth. | | 0 | | | Activ | | GLUCOSAMINE-CHONDROI | | | | | | e | | TIN PO | | | | | | | + + + +---------+------+------+-------+ | Multiple | Take by mouth. | | 0 | | | Activ | | Vitamins-Minerals | | | | | | e | | (MULTIVITAL PO) | | | | | | | + + + +---------+------+------+-------+ | rosuvastatin | Take 20 mg by mouth | | 0 | | | Activ | | (CRESTOR) 20 mg | nightly. | | | | | e | | tablet | | | | | | | + + + +---------+------+------+-------+ | fish oil 1,000 mg | Take 2,000 mg by | | 0 | | | Activ | | capsule | mouth 2 times daily. | | | | | e | + + + +---------+------+------+-------+ | SPIRULINA PO | Take by mouth. | | 0 | | | Activ | | | | | | | | e | + + + +---------+------+------+-------+ | cyanocobalamin | Take 1,000 mcg by | | 0 | | | Activ | | (VITAMIN B-12) 100 | mouth Daily. | | | | | e | | mcg tablet | | | | | | | + + + +---------+------+------+-------+ | betamethasone | Apply 1 Application | | 0 | | | Activ | | dipropionate 0.05% | topically 2 times | | | | | e | | cream | daily. To knees, | | | | | | | | legs and elbows | | | | | | | | every Friday and | | | | | | | | Friday | | | | | | + + + +---------+------+------+-------+ | calcipotriene | Apply 1 Application | | 0 | | | Activ | | (DOVONEX) 0.005 % | topically 2 times | | | | | e | | cream | daily. To knees, | | | | | | | | legs and elbows | | | | | | | | after betamethasone | | | | | | | | every Friday through | | | | | | | | Friday | | | | | | + + + +---------+------+------+-------+ | insulin glargine | Inject 25 Units | 3 mL | 0 | 05/1 | | Activ | | (LANTUS SOLOSTAR) | under the skin every | | | 4/20 | | e | | 100 units/mL | evening. | | | 20 | | | | injection (pen) | | | | | | | + + + +---------+------+------+-------+ | metoprolol | TAKE 1 TABLET BY | | 0 | 05/3 | | Activ | | succinate | MOUTH ONCE DAILY FOR | | | 0/20 | | e | | (TOPROL-XL) 100 mg | ARTIAL FIBRILATION. | | | 20 | | | | ER tablet | PLEASE CONTACT PCP | | | | | | | | FOR FURTHER REFILLS | | | | | | + + + +---------+------+------+-------+ | amiodarone | Take 1 tablet by | 90 | 3 | 06/0 | | Activ | | (PACERONE) 200 mg | mouth Daily. | tablet | | 9/20 | | e | | tablet | | | | 20 | | | + + + +---------+------+------+-------+ | rivaroxaban | Take 1 tablet by | 90 | 3 | 06/1 | | Activ | | (XARELTO) 20 mg | mouth Daily (with | tablet | | 1/20 | | e | | tablet | dinner). | | | 20 | | | + + + +---------+------+------+-------+ | gabapentin | Take 300 mg by mouth | | 0 | | 06/0 | Disco | | (NEURONTIN) 300 mg | 2 times daily. | | | | 9/20 | ntinu | | capsule | | | | | 20 | ed | | | | | | | | (Ther | | | | | | | | apy | | | | | | | | compl | | | | | | | | eted) | + + + +---------+------+------+-------+ | metoprolol | Take 1.5 tablets by | 90 | 1 | 05/1 | 06/0 | Disco | | tartrate (LOPRESSOR) | mouth 2 times daily | tablet | | / | 920 | ntinu | | 25 mg tablet | for 30 days. | | | 20 | 20 | ed | | | | | | | | (Dose | | | | | | | | | | | | | | | | adjus | | | | | | | | tment | | | | | | | | ) | + + + +---------+------+------+-------+ | pramipexole | Take 1 tablet by | 30 | 0 | 05/1 | 06/1 | Expir | | (MIRAPEX) 0.125 MG | mouth Daily for 30 | tablet | | 5/20 | 4/20 | ed | | tablet | days. | | | 20 | 20 | | + + + +---------+------+------+-------+ | warfarin | Take 1 tablet by | 7 | 0 | 05/1 | 06/0 | Disco | | (COUMADIN) 5 mg | mouth every evening. | tablet | | 4/20 | 9/20 | ntinu | | tablet | | | | 20 | 20 | ed | | | | | | | | (Alte | | | | | | | | rnate | | | | | | | | | | | | | | | | thera | | | | | | | | py) | + + + +---------+------+------+-------+ | amiodarone | Take 400 mg by mouth | | 0 | | 06/0 | Disco | | (PACERONE) 400 MG | Daily. | | | | 9/20 | ntinu | | tablet | | | | | 20 | ed | | | | | | | | (Reor | | | | | | | | misbah) | + + + +---------+------+------+-------+ | rivaroxaban | Take 1 tablet by | 90 | 3 | 06 | 10/24 | Disco | | (XARELTO) 20 mg | mouth Daily (with | tablet | | 02/12 | 06/14 | ntinu | | tablet | dinner). | | | 20 | 20 | ed | | | | | | | | (Reor | | | | | | | | misbah) | + + + +---------+------+------+-------+ Active Problems +---------+ + | Problem | Noted Date | +---------+ + | Fall | 11/10/2019 | +---------+ + + + | Overview: CT head October 2019: No acute intracranial | | abnormality identified. Mild cerebral atrophy with mild | | nonspecific white matter disease. Mild intracranial | | arteriosclerosis the bilateral parasellar ICAs. Bradley Cerrato, | | MD | + + + + + | Acute heart failure with preserved ejection fraction | 10/06/2019 | + + + | Atrial fibrillation with RVR | 10/05/2019 | + + + + + | Overview: Echocardiogram September 2019 shows left ventricle is | | normal in size and function. Ejection fraction is estimated at | | 60-65%. Grade 2 diastolic dysfunction. Mildly thickened mitral | | valve with mild annular calcification and mild regurgitation. | | Moderate to severe left atrial enlargement. 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 | | long-term current use of insulin | | + + + | Essential hypertension | 07/28/2019 | + + + | Nicotine dependence | 07/28/2019 | + + + | CKD (chronic kidney disease) stage 4, GFR 15-29 ml/min | 07/28/2019 | + + + Encounters +--------+ + + + + | Date | Type | Specialty | Care Team | Description | +--------+ + + + + | 11/04/ | Documentati | Nephrology | Art | Results (11/01/19) | | 2020 | on | | Naomi Seo | | | | | | [employer] | | +--------+ + + + + | 11/03/ | Telephone | Cardiology | Graham Black | Other (records sent | 2019 | | | MD Anup | - [facility]) | +--------+ + + + + | 11/01/ | Emergency | Emergency Medicine | Naeem Bruce MD | 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); 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, | | | | | | bilateral | +--------+ + + + + | 11/01/ | Office | Cardiology | Graham Black | Atrial fibrillation | | 2019 | Visit | | MD Anup | with RVR ([facility]) | | | | | | (Primary Dx); Acute | | | | | | heart failure with | | | | | | preserved ejection | | | | | | fraction ([facility]); | | | | | | Essential | | | | | | hypertension; | | | | | | Tobacco abuse; Fall, | | | | | | initial encounter; | | | | | | Nonintractable | | | | | | headache, | | | | | | unspecified | | | | | | chronicity pattern, | | | | | | unspecified headache | | | | | | type; Tobacco use | | | | | | disorder | +--------+ + + + + | 10/04/ | Hospital | | Paulo Ayers MD | Paroxysmal atrial | | 2019 - | Encounter | | | fibrillation ([facility]); | | | | | | Atrial fibrillation | | 10/06/ | | | | with RVR ([facility]); | | 2019 | | | | Acute heart failure | | | | | | with preserved | | | | | | ejection fraction | | | | | | ([facility]); CKD (chronic | | | | | | kidney disease) | | | | | | stage 4, GFR 15-29 | | | | | | ml/min ([facility]); | | | | | | Tobacco abuse | +--------+ + + + + | 09/01/ | Documentati | Nephrology | Art, | Other (Signed letter | | 2019 | on | | Naomi Seo | sent to [place] for | | | | | [employer] | patients PCP | | | | | | confirmation | | | | | | received) | +--------+ + + + + | 09/01/ | Telephone | Nephrology | Matty Bingham MD | Pain | | 2019 | | | | | +--------+ + + + + from Last 3 Months Immunizations + + + + | Name | Administration Dates | Next Due | + + + + | INFLUENZA 64 Y OR >, | 03/04/2017 | | | TRIVALENT HIGH-DOSE | | | + + + + | INFLUENZA PF 64 Y OR | 03/10/2018 | | | >,TRIVALENT (FLUAD) | | | + + + + | INFLUENZA PF | 02/14/2016, 03/07/2015, 02/15/2014 | | | TRIVALENT(PED/ADOL/A | | | | CHEY DUGAN | | | + + + + | INFLUENZA QUADR | 01/29/2019 | | | W/PRES | | | | (PED/ADOL/ADULT) | | | | MULTIDOSE | | | + + + + | INFLUENZA, | 02/18/2013, 04/28/2012, 02/21/2011, | | | UNSPECIFIED | 03/21/2010, 03/29/2009, 03/21/2008 | | | FORMULATION | | | + + + + | PNEUMOCOCCAL | 03/07/2015 | | | CONJUGATE 13-VALENT | | | | (PCV13) | | | + + + + | PNEUMOCOCCAL | 03/04/2017, 03/21/2008 | | | POLYSACCHARIDE | | | | 23-VALENT (PPSV23) | | | + + + + | PNEUMOCOCCAL, | 03/21/2008 | | | UNSPECIFIED | | | | FORMULATION | | | + + + + | TDAP, (ADOL/ADULT) | 06/28/2013 | | + + + + | ZOSTER NON-LIVE | 01/29/2019, 04/15/2018 | | | (SHINGRIX) | | | + + + + Social History + [...] on file | | + + + Last Filed Vital Signs + + + [...] | | + + + + + Plan of Treatment + + + + + | Health Maintenance | Due Date | Last | Comments | | | | Done | | + + + + + | Hepatitis C | | | | | Screening | 0 | | | + + + + + | Diabetic Eye Exam | | | | | | 8 | | | + + + + + | Diabetic Foot Exam | | | | | | 8 | | | + + + + + | Colorectal Cancer | | | | | Screening | 0 | | | | (Colonoscopy) | | | | + + + + + | Breast Cancer | | | | | Screening | 5 | | | + + + + + | Adult Annual | | | | | Wellness Visit | 9 | | | + + + + + | Hemoglobin A1c | | 04/29/20 | | | Screening | 0 | 19 | | + + + + + | Vaccine: | | 06/28/19 | | | Dtap/Tdap/Td (2 - | 4 | 14 | | | Td) | | | | + + + + + | Vaccine: | Completed | 03/04/20 | | | Pneumococcal 65+ | | 17, | | | | | 03/07/20 | | | | | 15, | | | | | 03/21/20 | | | | | 08, | | | | | Addition | | | | | al | | | | | history | | | | | exists | | + + + + + | Vaccine: Influenza | Completed | 01/30/20 | | | | | 19, | | | | | 03/10/20 | | | | | 18, | | | | | 03/04/20 | | | | | 17, | | | | | Addition | | | | | al | | | | | history | | | | | exists | | + + + + + | Vaccine: Zoster | Completed | 01/30/20 | | | | | 19, | | | | | 04/15/20 | | | | | 18 | | + + + + + Procedures + +--------+ + + + | [...] | | | 11/01/ | | | 2020 | | | 3:30 | | | [...] | | | RN: | | | [id number] | | | [id number] | | | riteri | | | [...] | | | St. | | | [place] | | | y | | | [...] | | | St. | | | [place] | | | y H. | | [...] | | | St. | | | [place] | | | y H. | | | [place] | | | [place] | | | Emer[facility] | | | ncy | | | Chief | | | Compla | | | int: | | | SOB | | | May | | | 12, | | | 2020 | | | [facility] | | | [facility] | | | [place] | | | y H. | | [...] | | | St. | | | [place] | | | y H. | | [...] | | | St. | | | [place] | | | y H. | | [...] | | | St. | | | [place] | | | y H. | | [...] | | | St. | | | [place] | | | y H. | | [...] | | | St. | | | [place] | | | y H. | | [...] | | | St. | | | [place] | | | y H. | | [...] | | | SAMMY, | | | [id number] | | | [id number] | | | [...] | | | otify/ | | | [id number] | | | [id number] | | | [id number] | | | [email or web address] | | | [id number] | | | [id number] | | | [...] | | | ed.? | | | 2020 | | | [employer] | | | tive | | | Med[employer] | | | l | | | [employer]o | | | logies | | | , Inc[employer] | | | - | | | [email or web address] | | | llecti | | | vemedi | | | [email or web address] | | | m | +---+--------+ + +--------+ + + + | ECG 12 LEAD | Routin | 11/02/2019 | Acute heart | Results for this | | | e | 2:20 PM | failure with | procedure are in the | | | | PDT | preserved ejection | results section. | | | | | fraction (HCC) | | | | | | Essential | | | | | | hypertension Atrial | | | | | | fibrillation with | | | | | | RVR (HCC) | | + +--------+ + + + [...] | + +--------+ + + + | ECG - EXTERNAL SCAN | | 10/13/2019 | | Results for this | | | | 12:00 AM | | procedure are in the | | | | PDT | | results section. | + +--------+ + + + | PROTIME INR | Routin | 10/07/2019 | | Results for this | | | e | 3:21 PM | | procedure are in the | | | | PDT | | results section. | + +--------+ + + + | POC GLUCOSE | Routin | 10/07/2019 | | Results for this | | | e | 12:25 PM | | procedure are in the | | | | PDT | | results section. | + +--------+ + + + | POC GLUCOSE | Routin | 10/07/2019 | | Results for this | | | e | 6:32 AM | | procedure are in the | | | | PDT | | results section. | + +--------+ + + + | MAGNESIUM | Routin | 10/07/2019 | | Results for this | | | e | 5:44 AM | | procedure are in the | | | | PDT | | results section. | + +--------+ + + + | CBC NO DIFFERENTIAL | Routin | 10/07/2019 | | Results for this | | | e | 5:44 AM | | procedure are in the | | | | PDT | | results section. | + +--------+ + + + | BASIC METABOLIC | Routin | 10/07/2019 | | Results for this | | PANEL | e | 5:44 AM | | procedure are in the | | | | PDT | | results section. | + +--------+ + + + | POC GLUCOSE | Routin | 10/06/2019 | | Results for this | | | e | 10:06 PM | | procedure are in the | | | | PDT | | results section. | + +--------+ + + + | POC GLUCOSE | Routin | 10/06/2019 | | Results for this | | | e | 4:42 PM | | procedure are in the | | | | PDT | | results section. | + +--------+ + + + | ECHO COMPLETE | Routin | 10/06/2019 | | Results for this | | | e | 3:15 PM | | procedure are in the | | | | PDT | | results section. | + +--------+ + + + | POC GLUCOSE | Routin | 10/06/2019 | | Results for this | | | e | 11:30 AM | | procedure are in the | | | | PDT | | results section. | + +--------+ + + + | POC GLUCOSE | Routin | 10/06/2019 | | Results for this | | | e | 7:11 AM | | procedure are in the | | | | PDT | | results section. | + +--------+ + + + | TSH | Add-On | 10/06/2019 | | Results for this | | | | 5:25 AM | | procedure are in the | | | | PDT | | results section. | + +--------+ + + + | MAGNESIUM | Routin | 10/06/2019 | | Results for this | | | e | 5:25 AM | | procedure are in the | | | | PDT | | results section. | + +--------+ + + + | CBC NO DIFFERENTIAL | Routin | 10/06/2019 | | Results for this | | | e | 5:25 AM | | procedure are in the | | | | PDT | | results section. | + +--------+ + + + | BASIC METABOLIC | Routin | 10/06/2019 | | Results for this | | PANEL | e | 5:25 AM | | procedure are in the | | | | PDT | | results section. | + +--------+ + + + | TROPONIN I | STAT | 10/06/2019 | | Results for this | | | | 5:25 AM | | procedure are in the | | | | PDT | | results section. | + +--------+ + + + | B TYPE NATRIURETIC | Add-On | 10/05/2019 | | Results for this | | PEPTIDE | | 11:53 PM | | procedure are in the | | | | PDT | | results section. | + +--------+ + + + | POC GLUCOSE | Routin | 10/05/2019 | | Results for this | | | e | 11:45 PM | | procedure are in the | | | | PDT | | results section. | + +--------+ + + + | XR CHEST AP PORTABLE | STAT | 10/05/2019 | | Results for this | | | | 11:25 PM | | procedure are in the | | | | PDT | | results section. | + +--------+ + + + | ECG 12 LEAD | CRISPIN | 10/05/2019 | | Results for this | | | | 10:38 PM | | procedure are in the | | | | PDT | | results section. | + +--------+ + + + | BASIC METABOLIC | Add-On | 10/05/2019 | | Results for this | | PANEL | | 10:26 PM | | procedure are in the | | | | PDT | | results section. | + +--------+ + + + | TROPONIN I | STAT | 10/05/2019 | | Results for this | | | | 10:26 PM | | procedure are in the | | | | PDT | | results section. | + +--------+ + + + from Last [address] Cervical Spine wo Contrast (11/02/2019 [...] + + | Performing | Address | City/State[facility] | Phone Number | | Organization | [...] | | | + +---------+ + + ECG 12 lead (11/02/2019 2:20 PM PDT)Only the most recent of 2 results within the time valeria od is included. + + + + + + | Component | Value | Ref Range | Performed | Pathologist | | | | | At | Signature | + + + + + + | VENTRICULAR | 49 | BPM | [facility] | | | RATE EKG | | | | | + + + + + + | ATRIAL RATE | 49 | BPM | [facility] | | + + + + + + | P-R | 184 | ms | [facility] | | | INTERVAL | | | | | + + + + + + | QRS | 94 | ms | [facility] | | | DURATION | | | | | + + + + + + | Q-T | 468 | ms | [facility] | | | INTERVAL | | | | | + + + + + + | Q-T | 422 | ms | [facility] | | | INTERVAL | | | | | | (CORRECTED) | | | | | + + + + + + | P WAVE AXIS | 63 | degrees | [facility] | | + + + + + + | QRS AXIS | 62 | degrees | [facility] | | + + + + + + | T AXIS | 17 | degrees | [facility] | | + + + + + + | INTERPRETAT | Sinus | | [facility] | | | ION TEXT | bradycardiaOtherwise | | | | | | normal ECGWhen compared | | | | | | with ECG of 05-OCT-2019 | | | | | | 22:38,Sinus rhythm has | | | | | | replaced Atrial | | | | | | fibrillationVent. rate | | | | | | has decreased BY 52 | | | | | | BPMNon-specific change | | | | | | in ST segment in | | | | | | Anterior leadsT wave | | | | | | inversion no longer | | | | | | evident in Inferior | | | | | | leadsConfirmed by | | | | | | CASANDRA BERNARDO MD | | | | | | ([id number]) on 11/04/2019 | | | | | | 8:55:10 AM | | | | + + + + + + + + | Specimen | + + | | + + + + + | Narrative | Performed At | + + + | | | + + + + +---------+ + + | Performing | Address | City/State/Zipcode | Phone Number | | Organization | | | | + +---------+ + + | [facility] | | | | + +---------+ + + Immunofixation, Serum (11/01/2019) + +-------+ + + [...] + + | Blood | + + CBC with Manual Differential (11/01/2019) + +-------+ + + + | Component | Value | Ref Range | Performed | Pathologist | | | | | At | Signature | + +-------+ + + + | WBC | 7.1 | 4.5 - 11.0 | | | + +-------+ + + + | RBC | 4.52 | 3.80 - 5.10 | | | | | | M/uL [...] + + + | BF % | 2 | 0 - 2 % | | | | Basophils | | | | | + +-------+ + + + + + | Specimen | + + | Blood | + + Dash [place] and Lambda Light Chain Ratio (11/01/2019) + +-------+ + + + | Component | Value | Ref Range | Performed | Pathologist | | | | | At | Signature | + +-------+ + + + | [place] FLC | 63.73 | | | | + +-------+ + + + | LAMBDA | 28.44 | | | | | LIGHT CHAIN | | | | | + +-------+ + + + | [place]/Lambd | 2.24 | | | | | [...] + + | Urine | + + Urinalysis (11/01/2019) + + [...] + + + + | Clarity | Clear | | | | + + + + + + | Specific | 1.010 | | | | | [place], | | | | | | Urine [...] + + | Blood | + + ECG - EXTERNAL SCAN (10/13/2019 12:00 AM PDT) + + + | Narrative | Performed At | + + + | Ordered by an | | | unspecified provider. | | + + + Protime INR (10/07/2019 3:21 PM PDT) + + + + + + | Component | Value | Ref Range | Performed | Pathologist | | | | | At | Signature | + + + + + + | Prothrombin | 12.8 | 11.3 - 13.9 | [facility] | | | Time | | seconds | [facility] | | | | | | [facility] | | | | | | C[facility] - | | | | | | LABORATORY | | + + + + + + | INR | 0.9Comment: Usual Oral | 0.9 - 1.1 | [facility] | | | | Anticoagulation Range: | | [facility] | | | | 2.0 - 3.0High | | MEDICAL | | | | Level Oral | | CENTER - | | | | Anticoagulation Range: | | LABORATORY | | | | 2.5 - 3.5 | | | | + + + + + + + + | Specimen | + + | Blood | + + + + + + + | Performing | Address | City/State/[facility] | Phone Number | | Organization | | | | + + + + + | [facility] | [address] | [place] | [phone] | | [facility] | | [address] | | | - LABORATORY | | | | + + + + + POC Glucose (10/07/2019 12:25 PM PDT)Only the most recent of 7 results within the time valeria od is included. + +---------+ + + + | Component | Value | Ref Range | Performed | Pathologist | | | | | At | Signature | + +---------+ + + + | Glucose, | 280 (H) | 70 - 109 mg/dL | [facility] | | | POC | | | [facility] | | | | | | [facility] | | | | | | CENTER - | | | | | | LABORATORY | | + +---------+ + + + + + | Specimen | + + | Blood | + + + + + + + | Performing | Address | City/State/Zipcode | Phone Number | | Organization | | | | + + + + + | [facility] | [address] | [place] | [phone] | | [facility] | | [address] | | | - LABORATORY | | | | + + + + + CBC no Differential (10/07/2019 5:44 AM PDT)Only the most recent of 2 results within the period is included. + + + + + + | Component | Value | Ref Range | Performed | Pathologist | | | | | At | Signature | + + + + + + | WBC | 6.3 | 4.0 - 11.0 K/uL | [facility] | | | | | | [facility] | | | | | | [facility] | | | | | | [facility] - | | | | | | LABORATORY | | + + + + + + | RBC | 3.79 | 3.70 - 5.20 | [facility] | | | | | M/uL | [facility] | | | | | | [facility] | | | | | | [facility] - | | | | | | LABORATORY | | + + + + + + | Hemoglobin | 10.9 (L) | 11.5 - 16.0 | [facility] | | | | | g/dL | [facility] | | | | | | [facility] | | | | | | CENTER - | | | | | | LABORATORY | | + + + + + + | Hematocrit | 32.9 (L) | 34.0 - 47.0 % | [facility] | | | | | | [facility] | | | | | | [facility] | | | | | | [facility] - | | | | | | LABORATORY | | + + + + + + | MCV | 86.8 | 83.0 - 101.0 fL | [facility] | | | | | | [facility] | | | | | | [facility] | | | | | | [facility] - | | | | | | LABORATORY | | + + + + + + | MCH | 28.8 | 28.0 - 35.0 pg | [facility] | | | | | | [facility] | | | | | | [facility] | | | | | | [facility] - | | | | | | LABORATORY | | + + + + + + | MCHC | 33.1 | 32.0 - 36.0 | [facility] | | | | | g/dL | [facility] | | | | | | [facility] | | | | | | [facility] - | | | | | | LABORATORY | | + + + + + + | RDW-CV | 15.0 (H) | <15.0 % | [facility] | | | | | | [facility] | | | | | | [facility] | | | | | | [facility] - | | | | | | LABORATORY | | + + + + + + | RDW-SD | 47.5 (H) | 35.1 - 46.3 fL | [facility] | | | | | | [facility] | | | | | | [facility] | | | | | | [facility] - | | | | | | LABORATORY | | + + + + + + | Platelet | 241 | 140 - 440 K/uL | [facility] | | | Count | | | [facility] | | | | | | [facility]ICAL | | | | | | CENTER - | | | | | | LABORATORY | | + + + + + + | MPV | 9.1 | 6.5 - 12.4 fL | [facility] | | | | | | [facility] | | | [facility] | [facility] | | | | | | CENTER - | | | | | | LABORATORY | | + + + + + + | % nRBC | 0 | 0 - 2 per 100 | [facility] | | | | | WBCs | [facility] | | | | | | [facility] | | | | | | CENTER - | | | | | | LABORATORY | | + + + + + + | Absolute | 0.00 | 0.00 - 0.01 | [facility] | | | nRBC | | K/uL | [facility] | | | | | | [facility] | | | | | | CENTER - | | | | | | LABORATORY | | + + + + + + + + | Specimen | + + | Blood | + + + + + + + | Performing | Address | City/State/Zipcode | Phone Number | | Organization | | | | + + + + + | [facility] | [address] | [place] | [phone] | | [facility] | | [address] | | | - LABORATORY | | | | + + + + + Magnesium (10/07/2019 5:44 AM PDT)Only the most recent of 2 results within the time period is included. + +-------+ + + + | Component | Value | Ref Range | Performed | Pathologist | | | | | At | Signature | + +-------+ + + + | Magnesium | 2.1 | 1.6 - 2.6 mg/dL | [facility] | | | | | | [facility] | | | | | | MEDICAL | | | | | | CENTER - | | | | | | LABORATORY | | + +-------+ + + + + + | Specimen | + + | Blood | + + + + + + + | Performing | Address | City/State/Zipcode | Phone Number | | Organization | | | | + + + + + | [facility] | [address] | [place] | [phone] | | [facility] | | [address] | | | - LABORATORY | | | | + + + + + Basic Metabolic Panel (10/07/2019 5:44 AM PDT)Only the most recent of 3 results within the time period is included. + + + + + + | Component | Value | Ref Range | Performed | Pathologist | | | | | At | Signature | + + + + + + | Na | 141 | 136 - 145 | [facility] | | | | | mmol/L | [facility] | | | | | | MEDICAL | | | | | | CENTER - | | | | | | LABORATORY | | + + + + + + | K | 4.2 | 3.4 - 5.1 | [facility] | | | | | mmol/L | [facility] | | | | | | MEDICAL | | | | | | CENTER - | | | | | | LABORATORY | | + + + + + + | Cl | 111 (H) | 98 - 107 mmol/L | [facility] | | | | | | [facility] | | | | | | [facility] | | | | | | CENTER - | | | | | | LABORATORY | | + + + + + + | CO2 | 31 | 20 - 31 mmol/L | [facility] | | | | | | [facility] | | [facility] | [facility] | | | | | | CENTER - | | | | | | LABORATORY | | + + + + + + | Anion Gap | -1 (L)Comment: Sample | 3 - 16 mmol/L | [facility] | | | | rerun and verified. | | [facility] | | | | | | MEDICAL | | | | | | CENTER - | | | | | | LABORATORY | | + + + + + + | Glucose | 98 | 60 - 106 mg/dL | [facility] | | | | | | [facility] | | | | | | [facility] | | | | | | CENTER - | | | | | | LABORATORY | | + + + + + + | BUN | 47 (H) | 9 - 23 mg/dL | [facility] | | | | | | [facility] | | | | | | MEDICAL | | | | | | CENTER - | | | | | | LABORATORY | | + + + + + + | Creatinine | 2.68 (H) | 0.55 - 1.02 | [facility] | | | | | mg/dL | [facility] | | | | | | MEDICAL | | | | | | CENTER - | | | | | | LABORATORY | | + + + + + + | eGFR if not | 18 (L)Comment: | >=60 | [facility] | | | | GLOMERULAR FILTRATION | mL/min/1.73m2 | [facility] | | | [place] | RATE,ESTIMATED | | MEDICAL | | | | mL/min/1.23t2Viwv than | | CENTER - | | | | 60 Chronic kidney | | LABORATORY | | | | disease,if found over a | | | | | | 3-month period.Less than | | | | | | 15 Kidney failureFor | | | | | | | | | | | | Americans,multiply the | | | | | | calculated GFR by 1.21. | | | | | | | | | | + + + + + + | Calcium | 9.9 | 8.7 - 10.4 | [facility] | | | | | mg/dL | [facility] | | | | | | [facility] | | | | | | CENTER - | | | | | | LABORATORY | | + + + + + + | BUN/Creatin | 17.5 | | [facility] | | | ine Ratio | | | [facility] | | | | | | MEDICAL | | | | | | CENTER - | | | | | | LABORATORY | | + + + + + + + + | Specimen | + + | Blood | + + + + + + + | Performing | Address | City/State/Zipcode | Phone Number | | Organization | | | | + + + + + | [facility] | [address] | [place] | [phone] | | [facility] | | [address] | | | - LABORATORY | | | | + + + + + ECHO Complete (10/06/2019 3:15 PM PDT) + +--------+ + + + | Component | Value | Ref Range | Performed | Pathologist | | | | | At | Signature | + +--------+ + + + | Inferior | 2.14 | cm | [facility] | | | Vena Cava | | | | | | Diameter at | | | | | | | | | | | | Inspiration | | | | | + +--------+ + + + | Inferior | 2.52 | cm | [facility] | | | Vena Cava | | | | | | Diameter at | | | | | | Expiration | | | | | + +--------+ + + + | LVIDd | 4.62 | cm | [facility] | | + +--------+ + + + | FS | 28 | % | [facility] | | + +--------+ + + + | LA volume | 132.09 | mL | [facility] | | + +--------+ + + + | Ascending | 3.36 | cm | [facility] | | | aorta | | | | | + +--------+ + + + | Aortic arch | 2.08 | cm | [facility] | | + +--------+ + + + | MV Area by | 5.74 | cm2 | [facility] | | | P 1/2 | | | | | | method | | | | | + +--------+ + + + | LVOT | 2 | cm | [facility] | | | diameter | | | | | + +--------+ + + + | LVOT peak | 86.78 | cm/s | [facility] | | | anitra | | | | | + +--------+ + + + | AV peak anitra | 181 | cm/s | [facility] | | + +--------+ + + + | MR max anitra | 498.67 | cm/s | [facility] | | + +--------+ + + + | AV peak | 13.1 | mmHg | [facility] | | | gradient | | | | | + +--------+ + + + | MV peak | 99.47 | mmHg | [facility] | | | gradient | | | | | + +--------+ + + + | MV Pressure | 38.34 | msec | [facility] | | | 1/2 time | | | | | + +--------+ + + + | LA Volume | 68 | mL/m2 | [facility] | | | Index | | | | | + +--------+ + + + | AV LVOT | 3.01 | mmHg | [facility] | | | Peak | | | | | | Gradient | | | | | + +--------+ + + + | RV Free | 12 | cm/s | [facility] | | | Wall Peak | | | | | | S' | | | | | + +--------+ + + + | RV | 2.44 | cm | [facility] | | | Diastolic | | | | | | Basal | | | | | | Diameter | | | | | + +--------+ + + + | LV | 62 | % | [facility] | | | Huddleston's | | | | | | Biplane EF | | | | | + +--------+ + + + | MV E' | 6.84 | cm/s | [facility] | | | Lateral | | | | | | Velocity | | | | | + +--------+ + + + | MV E' | 5.38 | cm/s | [facility] | | | Septal | | | | | | Velocity | | | | | + +--------+ + + + | MV | 700.72 | cm/s2 | [facility] | | | Deceleratio | | | | | | n [place] | | | | | + +--------+ + + + | MV | 132.19 | msec | [facility] | | | Deceleratio | | | | | | n Time | | | | | + +--------+ + + + | MV E/A | 1.68 | | [facility] | | | Ratio | | | | | + +--------+ + + + | MV Peak | 58.67 | cm/s | [facility] | | | A-Wave | | | | | + +--------+ + + + | MV Peak | 98.76 | cm/s | [facility] | | | E-Wave | | | | | + +--------+ + + + | RA Area | 16 | cm2 | [facility] | | + +--------+ + + + | LA/Aorta | 1.36 | | [facility] | | | Ratio | | | | | + +--------+ + + + | LA Area | 29.97 | cm2 | [facility] | | + +--------+ + + + | LA Systolic | 20.05 | mmHg | [facility] | | | Pressure | | | | | + +--------+ + + + | MV E/E | 18.36 | | [facility] | | | SEPTAL | | | | | + +--------+ + + + | MV E/E | 14.44 | | [facility] | | | LATERAL | | | | | + +--------+ + + + | Vitals | 66 | | [facility] | | | Heart Rate | | | | | | Rest | | | | | + +--------+ + + + | Vitals BP | 130 | | [facility] | | | Systolic | | | | | + +--------+ + + + | Vitals BP | 61 | | [facility] | | | Diastolic | | | | | + +--------+ + + + | Vitals | 167.6 | | [facility] | | | Height | | | | | + +--------+ + + + | Vitals | 83.30 | | [facility] | | | Weight | | | | | + +--------+ + + + | Vitals BSA | 1.93 | | [facility] | | + +--------+ + + + | Vitals BMI | 29.64 | | [facility] | | + +--------+ + + + | Aortic Root | 3.12 | cm | [facility] | | | Diameter | | | | | + +--------+ + + + | IVS | 1.26 | cm | [facility] | | | Diastolic | | | | | | Thickness | | | | | | MM | | | | | + +--------+ + + + | LVPW | 1.17 | cm | [facility] | | | Diastolic | | | | | | Thickness | | | | | | MM | | | | | + +--------+ + + + | IVS | 1.64 | cm | [facility] | | | Systolic | | | | | | Thickness | | | | | | MM | | | | | + +--------+ + + + | LV Systolic | 3.34 | cm | [facility] | | | Diameter | | | | | | MM | | | | | + +--------+ + + + | LVPW | 1.72 | cm | [facility] | | | Systolic | | | | | | Thickness | | | | | | MM | | | | | + +--------+ + + + | LA Systolic | 4.24 | cm | [facility] | | | Diameter | | | | | | MM | | | | | + +--------+ + + + | TAPSE | 1.7 | cm | [facility] | | + +--------+ + + + | LVEF-TTE | 62 | | [facility] | | | TRANSTHORAC | | | | | | IC ECHO | | | | | + +--------+ + + + + + | Specimen | + + | | + + + +------ ---------+ | Narrative | Perfo rmed At | + +------ ---------+ | Transthoracic | [facility] | | Echocardiography Report (TTE) Demographics Patient Name | | | CHRISTIANO Room Number 321 | | | [facility] Patient Number [id number] Date of Study | | | 10/06/2019 Visit Number [id number] Referring | | | Physician ORVILLE FULTON | | | Tire Vulcanizer [facility]PH[facility] Number Date of | | | 1950 Interpreting ANUP BLACK MD | | | Physician 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 Procedure DateDate: 10/06/2019 Start: 02:51 | | | PM Study Location: [facility] Quality: Adequate visualization | | | Indications:Atrial fibrillation, unspecified I48.91. Patient Status: | | | Routine Height: 66 inches Weight: 183 pounds BSA: 1.93 m^2 BMI: 29.54 | | | kg/m^2 Rhythm: Normal Sinus Rhythm HR: 66 bpm BP: 130/61 mmHg | | | Conclusions Summary Left ventricle is normal in size and function. | | | Ejection fraction is estimated at 60-65%. Grade 2 diastolic | | | dysfunction. Mildly thickened mitral valve with mild annular | | | calcification and mild regurgitation. Moderate to severe left atrial | | | enlargement. Signature | | | | | | Electronically signed by ANUP BLACK MD (Interpreting physician) on | | | 10/06/2019 at 05:21 PM | | | | | | Structures Left Atrium LA Dimension: 4.24 cm | | | LA Area: 29.97 cm^2 LA/Aorta: 1.36 | | | LA Systolic Pressure: 20.05 mmHg LA Volume/Index: 132.09 ml /68m^2 | | | Left Atrium Findings Moderate to severe left atrial enlargement. Left | | | Ventricle Diastolic Dimension: 4.62 cm Systolic | | | Dimension: 3.34 cm Septum Diastolic: 1.26 cm Septum | | | Systolic: 1.64 cm PW Diastolic: 1.17 cm PW | | | Systolic: 1.72 cm EF Estimated: 62% FS: | | | 27.7 % EF Calculated: 62.1% LVOT Diameter: 2 cm Left Ventricle | | | Findings Left ventricle is normal in size and function. Ejection | | | fraction is estimated at 60-65%. Grade 2 diastolic dysfunction. Right | | | Atrium RA | | | Area: 16 cm^2 Right Atrium Findings Right atrium is mildly enlarged. | | | Right Ventricle Diastolic Dimension: 2.44 cm S' | | | velocity wall12 cm/s Right Ventricle Findings Normal right | | | ventricular size and function. TAPSE 1.7 cm MiscellaneousAorta Aortic | | | Root: 3.12 cm Aortic Arch: 2.08 cm | | | Ascending Aorta: 3.36 cm LVOT Diameter: 2 cm Vena Cava IVC Inspirium: | | | 2.14 cm IVC Expirium: 2.52 cm Miscellaneous | | | FindingsMeasurements and calculations provided in the report sections | | | maybeincomplete. Additional m-mode, 2D, Doppler, Doppler tissue, | | | strain, andother hemodynamic assessments performed and documented | | | within the imageviewer. Pericardium Pericardial Effusion Findings No | | | evidence of pericardial effusion. Pleura Pleural Effusion Findings | | | No evidence of pleural effusion. Valves Mitral Valve Peak E-Wave: | | | 98.76 cm/s Peak A-Wave: 58.67 cm/s P1/2t: 38.3 | | | msec E/A Ratio: 1.68 | | | Peak Gradient: 99.47 mmHg Area | | | (PHT): 5.74 cm^2 Deceleration Time: 132.2 | | | msec MR Velocity: 498.67 cm/s Tissue Doppler E' Septal Velocity: | | | 5.38 cm/s E' Lateral Velocity: 6.84 cm/s Mitral Valve Findings Mildly | | | thickened mitral valve with mild annular calcification and mild | | | regurgitation. Aortic Valve Peak Velocity: 181 cm/s Peak Gradient: | | | 13.1 mmHg Aortic Valve Findings Aortic valve is a sclerotic probable | | | trileaflet valve without significant stenosis or regurgitation. | | | Tricuspid Valve Tricuspid Valve Findings Structurally normal | | | tricuspid valve without significant stenosis or regurgitation. Unable | | | to accurately assess RV systolic pressures in the absence of | | | significant tricuspid regurgitation. Pulmonic Valve Pulmonic Valve | | | Findings Normal pulmonic valve structure and function. Normal | | | pulmonary valve and RVOT flow by color and Doppler flow imaging. LVOT | | | Peak Velocity: 86.78 cm/s Peak Gradient: 3.01 mmHg LVOT Diameter: 2 | | | cm | | | | | | Left Ventricle | | | | | | Diastolic Dimension: 4.62 cm Systolic Dimension: 3.34 cm | | | Septum Diastolic: 1.26 cm Septum Systolic: 1.64 cm | | | PW Diastolic: 1.17 cm PW Systolic: 1.72 cm | | | EF Estimated: 62% FS: 27.7 % | | | EF Calculated: 62.1% | | | | | | LVOT Diameter: 2 cm | | | | | | Left Ventricle Findings | | | Left ventricle is normal in size and function. Ejection fraction is | | | estimated at 60-65%. | | | Grade 2 diastolic dysfunction. | | | | | | Right Atrium | | | | | | RA Area: 16 cm^2 | | | | | | Right Atrium Findings | | | Right atrium is mildly enlarged. | | | | | | Right Ventricle | | | | | | Diastolic Dimension: 2.44 cm S' velocity wall12 cm/s | | | | | | Right Ventricle Findings | | | Normal right ventricular size and function. | | | TAPSE 1.7 cm | | | | | |Miscellaneous | | |Aorta | | | | | | Aortic Root: 3.12 cm Aortic Arch: 2.08 cm | | | Ascending Aorta: 3.36 cm | | | LVOT Diameter: 2 cm | | | | | |Vena Cava | | | | | | IVC Inspirium: 2.14 cm IVC Expirium: 2.52 cm | | | | | |Miscellaneous Findings | | |Measurements and calculations provided in the report sections maybe | | |incomplete. Additional m-mode, 2D, Doppler, Doppler tissue, strain, and | | |other hemodynamic assessments performed and documented within the image | | |viewer. | | | | | | Pericardium | | | | | | Pericardial Effusion Findings | | | No evidence of pericardial effusion. | | | | | | Pleura | | | | | | Pleural Effusion Findings | | | No evidence of pleural effusion. | | | | | |Valves | | | | | | Mitral Valve | | | | | | Peak E-Wave: 98.76 cm/s Peak A-Wave: 58.67 cm/s | | | P1/2t: 38.3 msec E/A Ratio: 1.68 | | | Peak Gradient: 99.47 mmHg | | | Area (PHT): 5.74 cm^2 Deceleration Time: 132.2 msec | | | MR Velocity: 498.67 cm/s | | | | | | Tissue Doppler | | | | | | E' Septal Velocity: 5.38 cm/s | | | E' Lateral Velocity: 6.84 cm/s | | | | | | Mitral Valve Findings | | | Mildly thickened mitral valve with mild annular calcification and mild | | | regurgitation. | | | | | | Aortic Valve | | | | | | Peak Velocity: 181 cm/s | | | Peak Gradient: 13.1 mmHg | | | | | | Aortic Valve Findings | | | Aortic valve is a sclerotic probable trileaflet valve without significant | | | stenosis or regurgitation. | | | | | | Tricuspid Valve | | | | | | Tricuspid Valve Findings | | | Structurally normal tricuspid valve without significant stenosis or | | | regurgitation. Unable to accurately assess RV systolic pressures in the | | | absence of significant tricuspid regurgitation. | | | | | | Pulmonic Valve | | | | | | Pulmonic Valve Findings | | | Normal pulmonic valve structure and function. Normal pulmonary valve and | | | RVOT flow by color and Doppler flow imaging. 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 Ejection fraction is estimated at 60-65%. Grade 2 diastolic | | dysfunction. Mildly thickened mitral valve with mild annular calcification and mild | | regurgitation. Moderate to severe left atrial enlargement. Signature | | | | Structures Left Atrium | | LA Dimension: 4.24 cm LA Area: 29.97 cm^2 LA/Aorta: 1.36 | | LA Systolic Pressure: 20.05 mmHg LA Volume/Index: 132.09 ml /68m^2 Left Atrium | | Findings Moderate to severe left atrial enlargement. Left Ventricle Diastolic Dimension: | | 4.62 cm Systolic Dimension: 3.34 cm Septum Diastolic: 1.26 cm | | Septum Systolic: 1.64 cm PW Diastolic: 1.17 cm PW Systolic: 1.72 cm EF | | Estimated: 62% FS: 27.7 % EF Calculated: 62.1% LVOT Diameter: 2 cm | | Left Ventricle Findings Left ventricle is normal in size and function. Ejection fraction | | is estimated at 60-65%. Grade 2 diastolic dysfunction. Right Atrium | | RA Area: 16 cm^2 Right Atrium Findings Right atrium is mildly enlarged. | | Right Ventricle Diastolic Dimension: 2.44 cm S' velocity wall12 cm/s Right | | Ventricle Findings Normal right ventricular size and function. TAPSE 1.7 | | cmMiscellaneousAorta Aortic Root: 3.12 cm Aortic Arch: 2.08 cm | | Ascending Aorta: 3.36 cm LVOT Diameter: 2 cmVena Cava IVC Inspirium: 2.14 cm | | IVC Expirium: 2.52 cmMiscellaneous FindingsMeasurements and calculations provided in | | the report sections maybeincomplete. Additional m-mode, 2D, Doppler, Doppler tissue, | | strain, andother hemodynamic assessments performed and documented within the | | imageviewer. Pericardium Pericardial Effusion Findings No evidence of pericardial | | effusion. Pleura Pleural Effusion Findings No evidence of pleural effusion.Valves Mitral | | Valve Peak E-Wave: 98.76 cm/s Peak A-Wave: 58.67 cm/s P1/2t: 38.3 msec | | E/A Ratio: 1.68 Peak Gradient: | | 99.47 mmHg Area (PHT): 5.74 cm^2 Deceleration Time: 132.2 msec MR | | Velocity: 498.67 cm/s Tissue Doppler E' Septal Velocity: 5.38 cm/s E' Lateral Velocity: | | 6.84 cm/s Mitral Valve Findings Mildly thickened mitral valve with mild annular | | calcification and mild regurgitation. Aortic Valve Peak Velocity: 181 cm/s Peak | | Gradient: 13.1 mmHg Aortic Valve Findings Aortic valve is a sclerotic probable | | trileaflet valve without significant stenosis or regurgitation. Tricuspid Valve | | Tricuspid Valve Findings Structurally normal tricuspid valve without significant | | stenosis or regurgitation. Unable to accurately assess RV systolic pressures in the | | absence of significant tricuspid regurgitation. Pulmonic Valve Pulmonic Valve Findings | | Normal pulmonic valve structure and function. Normal pulmonary valve and RVOT flow by | | color and Doppler flow imaging. LVOT Peak Velocity: 86.78 cm/s Peak Gradient: 3.01 mmHg | | LVOT Diameter: 2 cm | | | | Signature | | | | | | | | | | | |Structures | | | | Left Atrium | | | | LA Dimension: 4.24 cm LA Area: 29.97 cm^2 | | LA/Aorta: 1.36 LA Systolic Pressure: 20.05 mmHg | | LA Volume/Index: 132.09 ml /68m^2 | | | | Left Atrium Findings | | Moderate to severe left atrial enlargement. | | | | Left Ventricle | | | | Diastolic Dimension: 4.62 cm Systolic Dimension: 3.34 cm | | Septum Diastolic: 1.26 cm Septum Systolic: 1.64 cm | | PW Diastolic: 1.17 cm PW Systolic: 1.72 cm | | EF Estimated: 62% FS: 27.7 % | | EF Calculated: 62.1% | | | | LVOT Diameter: 2 cm | | | | Left Ventricle Findings | | Left ventricle is normal in size and function. Ejection fraction is | | estimated at 60-65%. | | Grade 2 diastolic dysfunction. | | | | Right Atrium | | | | RA Area: 16 cm^2 | | | | Right Atrium Findings | | Right atrium is mildly enlarged. | | | | Right Ventricle | | | | Diastolic Dimension: 2.44 cm S' velocity wall12 cm/s | | | | Right Ventricle Findings | | Normal right ventricular size and function. | | TAPSE 1.7 cm | | | |Miscellaneous | |Aorta | | | | Aortic Root: 3.12 cm Aortic Arch: 2.08 cm | | Ascending Aorta: 3.36 cm | | LVOT Diameter: 2 cm | | | |Vena Cava | | | | IVC Inspirium: 2.14 cm IVC Expirium: 2.52 cm | | | |Miscellaneous Findings | |Measurements and calculations provided in the report sections maybe | |incomplete. Additional m-mode, 2D, Doppler, Doppler tissue, strain, and | |other hemodynamic assessments performed and documented within the image | |viewer. | | | | Pericardium | | | | Pericardial Effusion Findings | | No evidence of pericardial effusion. | | | | Pleura | | | | Pleural Effusion Findings | | No evidence of pleural effusion. | | | |Valves | | | | Mitral Valve | | | | Peak E-Wave: 98.76 cm/s Peak A-Wave: 58.67 cm/s | | P1/2t: 38.3 msec E/A Ratio: 1.68 | | Peak Gradient: 99.47 mmHg | | Area (PHT): 5.74 cm^2 Deceleration Time: 132.2 msec | | MR Velocity: 498.67 cm/s | | | | Tissue Doppler | | | | E' Septal Velocity: 5.38 cm/s | | E' Lateral Velocity: 6.84 cm/s | | | | Mitral Valve Findings | | Mildly thickened mitral valve with mild annular calcification and mild | | regurgitation. | | | | Aortic Valve | | | | Peak Velocity: 181 cm/s | | Peak Gradient: 13.1 mmHg | | | | Aortic Valve Findings | | Aortic valve is a sclerotic probable trileaflet valve without significant | | stenosis or regurgitation. | | | | Tricuspid Valve | | | | Tricuspid Valve Findings | | Structurally normal tricuspid valve without significant stenosis or | | regurgitation. Unable to accurately assess RV systolic pressures in the | | absence of significant tricuspid regurgitation. | | | | Pulmonic Valve | | | | Pulmonic Valve Findings | | Normal pulmonic valve structure and function. Normal pulmonary valve and | | RVOT flow by color and Doppler flow imaging. | | | | LVOT | | | | Peak Velocity: 86.78 cm/s | | Peak Gradient: 3.01 mmHg | | LVOT Diameter: 2 cm | + + + +---------+ + + | Performing | Address | City/State/Zipcode | Phone Number | | Organization | | | | + +---------+ + + | [facility] | | | | + +---------+ + + Troponin I (10/06/2019 5:25 AM PDT)Only the most recent of 2 results within the time eulalia osborn is included. + + + + + + | Component | Value | Ref Range | Performed | Pathologist | | | | | At | Signature | + + + + + + | Troponin I | 0.06 (H)Comment: | <0.06 ng/mL | [facility] | | | | Comment:Reference | | [facility] | | | | Ranges: 0.00-0.06 = | | MEDICAL | | | | NORMAL >0.06 = | | CENTER - | | | | SUSPICIOUS FOR | | LABORATORY | | | | MYOCARDIAL DAMAGE NOTE: | | | | | | Values greater than | | | | | | 0.78 ng/mL have been | | | | | | shown to be strongly | | | | | | associated with acute | | | | | | myocardial infarction. | | | | | | The [employer] | | | | | | Cardiology (ACC) | | | | | | recommends a decision | | | | | | limit of 0.06 ng/mL for | | | | | | this assay. Results | | | | | | greater than 0.06 can | | | | | | reflect a pre-infarct | | | | | | acute coronary syndrome, | | | | | | but can also reflect | | | | | | myocardial necrosis or | | | | | | injury that is not due | | | | | | to coronary artery | | | | | | disease. Some of these | | | | | | causes are sepsis, | | | | | | hypocolemia, atrial | | | | | | fibrillation, heart | | | | | | failure, pulmonary | | | | | | embolism, myocarditis, | | | | | | myocardial contusion, | | | | | | and renal failure. The | | | | | | diagnosis of myocardial | | | | | | infarction should be | | | | | | based on a combination | | | | | | of the patient's | | | | | | clinical presentation | | | | | | and the clinical | | | | | | laboratory test results | | | | | | (especially serial | | | | | | troponin levels). | | | | + + + + + + + + | Specimen | + + | Blood | + + + + + + + | Performing | Address | City/State/Zipcode | Phone Number | | Organization | | | | + + + + + | [facility] | [address] | [place] | [phone] | | [facility] | | [id number] | | | - LABORATORY | | | | + + + + + TSH (10/06/2019 5:25 AM PDT) + +-------+ + + + | Component | Value | Ref Range | Performed | Pathologist | | | | | At | Signature | + +-------+ + + + | TSH | 2.32 | 0.55 - 4.78 | [facility] | | | | | uIU/mL | [facility] | | | | | | [facility] | | | | | | [facility] - | | | | | | LABORATORY | | + +-------+ + + + + + | Specimen | + + | Blood | + + + + + + + | Performing | Address | City/State/Zipcode | Phone Number | | Organization | | | | + + + + + | [facility] | [address] | [place] | [phone] | | [facility] | | [address] | | | - LABORATORY | | | | + + + + + B Type Natriuretic Peptide (10/05/2019 11:53 PM PDT) + + + + + + | Component | Value | Ref Range | Performed | Pathologist | | | | | At | Signature | + + + + + + | BNP | 1,607 (H)Comment: New | <100 pg/mL | [facility] | | | | method in use as of | | [facility] | | | | July 22, 2018. Check | | MEDICAL | | | | reference range for | | CENTER - | | | | changes.Some analytes | | LABORATORY | | | | show significant | | | | | | variation from the | | | | | | previous method.It may | | | | | | be necessary to set a | | | | | | new baseline for this | | | | | | analyte. | | | | + + + + + + + + | Specimen | + + | Blood | + + + + + + + | Performing | Address | City/State/Zipcode | Phone Number | | Organization | | | | + + + + + | [facility] | [address] | [place] | [phone] | | [facility] | | [address] | | | - LABORATORY | | | | + + + + + XR Chest AP Portable (10/05/2019 11:25 PM PDT) + + | Specimen | + + | | + + + + + | Impressions | Performed At | + + + | 1. ENLARGEMENT OF THE CARDIAC SILHOUETTE WITH MILD PROMINENCE | [facility] | | OF THE PULMONARY VASCULATURE AND PROBABLE PERIPHERAL SEPTAL LINES AT | | | THE LEFT BASE, FAVORING INTERSTITIAL EDEMA. Dictated and Signed | | | by: Yasir Parish MD Electronically signed: 10/06/2019 7:17 AM | | + + + + + + | Narrative | Performed At | + + + | SINGLE AP CHEST 10/05/2019 11:25 PM CLINICAL HISTORY: afib | [facility] | | COMPARISON: None available FINDINGS: The cardiac silhouette is | | | enlarged and there is mild prominence of the pulmonary vasculature. | | | Peripheral septal lines are suggested at the lateral left base. | | | No consolidation, pneumothorax or pleural effusion is visible. | | | There are degenerative changes of the shoulders with probable | | | left-sided rotator cuff calcification. Multilevel spondylosis is | | | apparent. | | + + + + + | Procedure Note | + + | [place], Rad Results In - 10/06/2019 7:21 AM PDT SINGLE AP CHEST 10/05/2019 11:25 PM | | | | CLINICAL HISTORY: afib | | | | COMPARISON: None available | | | | FINDINGS: The cardiac silhouette is enlarged and there is mild prominence of the | | pulmonary vasculature. Peripheral septal lines are suggested at the lateral | | left base. No consolidation, pneumothorax or pleural effusion is visible. | | There are degenerative changes of the shoulders with probable left-sided rotator | | cuff calcification. Multilevel spondylosis is apparent. | | | | IMPRESSION: | | | | 1. ENLARGEMENT OF THE CARDIAC SILHOUETTE WITH MILD PROMINENCE OF THE PULMONARY | | VASCULATURE AND PROBABLE PERIPHERAL SEPTAL LINES AT THE LEFT BASE, FAVORING | | INTERSTITIAL EDEMA. | | | | Dictated and Signed by: Yasir Parish MD | | Electronically signed: 10/06/2019 7:17 AM | + + + +---------+ + + | Performing | Address | City/State/Zipcode | Phone Number | | Organization | | | | + +---------+ + + | [facility] | | | | + +---------+ + + from Last 3 Months Insurance + +--------+ +--------+ +---------+--------+ | Payer | Benefi | Subscriber | Effect | Phone | Address | Type | | | t Plan | ID | ira | | | | | | / | | Dates | | | | | | Group | | | | | | + +--------+ +--------+ +---------+--------+ | [employer] | [place] | [id number] | 08/02/19 | | | Indemn | | | COMMUN | | 20-Pre | | | ity | | | ITY | | sent | | | | | | CARE | | | | | | + +--------+ +--------+ +---------+--------+ | [employer] | [place] | [id number] | 08/02/19 | | | Indemn | | | NS | | 20-Pre | | | ity | | | ADMIN | | sent | | | | | | [place] | | | | | | | | [place] | | | | | | + +--------+ +--------+ +---------+--------+ | [employer] | [place] | [id number] | | | | Indemn | | | NS | | 006-Pr | | | ity | | | ADMIN | | esent | | | | | | [place] | | | | | | | | [place] | | | | | | + +--------+ +--------+ +---------+--------+ | [employer] | [place] | [id number] | | | | Indemn | | | COMMUN | | 016-Pr | | | ity | | | ITY | | esent | | | | | | CARE | | | | | | + +--------+ +--------+ +---------+--------+ | MEDICARE | MEDICA | [id number] | | [phone] | | Medica | | | RE | | 020-Pr | 5 | | re | | | PART A | | esent | | | | + +--------+ +--------+ +---------+--------+ + +--------+ +--------+ + + | Guarantor Name | Accoun | Relation to | Date | Phone | Billing Address | | | t Type | Patient | of | | | | | | | | | | + +--------+ +--------+ + + | Lizet Mcneil | Person | Self [birth year] | [address] | | | al/Fam | | 1951 | [phone] | [address] [place], [place] | | | ricardo | | | 7 (Home) | [address] | + +--------+ +--------+ + + | Lizet Mnceil | Person | Self [birth year] | [address] | | | al/Fam | | 1951 | [phone] | [address] [place], [place] | | | [place] | | | [address] (Home) | [address] | + +--------+ +--------+ + + Advance Directives + + + + + | Type | Date Recorded | Patient | Explanation | | | | Metal Dresser | | + + + + + | Power of | | | | | Vice President Mission Integration | | | | + + + + + | Advance | 10/06/2019 11:09 | | | | Directive | AM | | | + + + + + + + + + + | Code Status | Date | Date | Comments | | | Activated | Inactivated | | + + + + + | Full Code | 10/05/2019 | 10/07/2019 | | | | 10:43 PM | 5:59 PM | | + + + + +
--- OUTSIDE RECORDS SUMMARY | ~2019-11-13 | XMS | Encounter Summary ---
Demographics + + + | Address | [address] [facility] [address] | | | [place] [address] | + + + | Home Phone | | + + + | Preferred Language | Unknown | + + + | Marital Status | Unknown | + + + | Hoahaoism Affiliation | Unknown | + + + [...] Team Providers + +------+ + | Care Cloth Washer Back Tender Name | Role | Phone | [...] + + | 11/04/ | Documentati | [facility] | [place], | Results (11/01/19) | | 2020 | on | NEPHROLOGY JUAN | [facility] | | | | | [address] | [address] | | | | | [address] [facility] [place] | | | | | | [address] | | | | | | [phone] | | | +--------+ + + + [...] Not on filedocumented as of this encounter Procedures + +--------+ [...] + + | Blood | + + Estelline and Lambda Light Chain Ratio (11/01/2019) + +-------+ + + + | Component | Value | Ref Range | Performed | Pathologist | | | | | At | Signature | + +-------+ + + + | Estelline FLC | 63.73 | | | | + +-------+ + + + | LAMBDA | 28.44 | | | | | LIGHT CHAIN | | | | | + +-------+ + + + | Estelline/Lambd | 2.24 | | | | | [...] | 1.010 | | | | | [place], | | | | | | Urine [...]
--- OUTSIDE RECORDS SUMMARY | ~2019-11-13 | XMS | Encounter Summary ---
Demographics + + + | Address | [address] [facility] | | | [place] [address] | + + + | Home Phone | | + + + | Preferred Language | Unknown | + + + | Marital Status | Unknown | + + + | Latter-Day Affiliation | Unknown | + + + | Race | Unknown | + + + | Ethnic Group | Unknown | + + + Author + + + | Author | [facility] | | | and [place] | + + + | Organization | [facility] | | [...] Team Providers + +------+ + | Care Perinatal Tech Name | Role | Phone | + [...] [address] | | | | | | [place], [place] | (Fax) | | | | | [address] | | | | | | [phone] | | | +--------+ + + + [...]
--- OUTSIDE RECORDS SUMMARY | ~2019-11-13 | XMS | Encounter Summary ---
Demographics + + + | Address | [address] [facility] | | | [place] [address] | + + + | Home Phone | | + + + | Preferred Language | Unknown | + + + | Marital Status | Unknown | + + + | Congregation Affiliation | Unknown | + + + | Race | Unknown | + + + | Ethnic Group | Unknown | + + + Author + + + | Author | [facility] | | | and [place] | + + + | Organization | [facility] | | | [...] Team Providers + +------+ + | Care Civil Engineering Project Designer Name | Role | Phone | + +------+ + | Sharyn Oliva | PCP | | + +------+ + Encounter Details +--------+ + + + + | Date | Type | Department | Care Team | Description | +--------+ + + + + | 09/09/ | Lab | [facility] | Sharyn Oliva | Age-related | | 2018 | Requisition | [facility] | [address] | osteoporosis with | | | | [address] | [place] | current pathological | | | | [place] | [place] | fracture of right | | | | [address] | [address] | forearm | | | | [phone] | [phone] | | | | | | | [...] | Test ordered under wrong submitter | [facility] | | | [facility] | | [facility] | | | - LABORATORY | + + + + + + + + | Performing | Address | City/State/Zipcode | Phone Number | | Organization | | | | + + + + + | [facility] | [address] | [place] | [phone] | | [facility] | | [address] | | | - LABORATORY | | | | + + + + + documented in this encounter Visit Diagnoses + + | Diagnosis | + + | Age-related osteoporosis with current pathological fracture of right forearm Senile | | osteoporosis | + + documented in this encounter"
--- OUTSIDE RECORDS SUMMARY | ~2019-11-13 | XMS | Encounter Summary ---
Demographics + + + | Address | [address] [facility] | | | [place] [address] | + + + | Home Phone | | + + + | Preferred Language | Unknown | + + + | Marital Status | Unknown | + + + | Baptism Affiliation | Unknown | + + + [...] Team Providers + +------+ + | Care Sales Property Manager Name | Role | Phone | [...] | | | kidney | [facility] | [place] | | | | | disease, | [address] | [address] | | | | | stage 4 | [address] [place] [address] | | | | | (severe) | [address] | [place], [place] | | | | | (HCC) | [place] | [address] | | | | | | [address] | Phone: | | | | | | Phone: | [phone] | | | | | | [phone] | Fax: | | | | | | Fax: | [phone] | | | | | | [phone] | | + +--------+ + + + + Encounter Details +--------+---------+ + + + | Date | Type | Department | Care Team | Description | +--------+---------+ + + + | 08/01/ | Office | [facility] | Matty Bingham MD | CKD (chronic kidney | | 2020 | Visit | NEPHROLOGY [place] | [address] [place] | disease) stage 4, | | | | [address] | [address] [facility] [place] | GFR 15-29 ml/min | | | | [address] [place] [address] | [address] | ([facility]) (Primary Dx); | | | | [place], [place] | | 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 I sent her for a repeat ALEX + TOLU NEGRETE in 1 week. She will report back [...] intact PTH, uric acid, urinalysis, Urine total eedehqd-iw-hlaw tinine ratio before she comes back in [...] disease) stage 4, GFR 15-29 ml/min ([facility]) 07/28/2019 Diabetes mellitus ([facility]) 07/28/2019 Hypertension 07/28/2019 Nicotine dependence 07/28/2019 No [...] file Gets together: Not on file Attends jainism service: Not on file Active member of [...] stage III CKD on a background of long s savanahding diabetes & hypertension. The most likely pathology [...] intact PTH, uric acid, urinalysis, Urine total ajmryfm-zw-dkvl tinine ratio before she comes back in 3 months. More than 30 minutes of this 60-minute visit was spent in education and counseling. Thank you Lizet Godinez for the opportunity to see this patient in consult today. Please do not hesitate to call me at any time with questions or concerns. Truly yours, Matty Bingham MD FACP FAHA documented in this enco unter Plan of Treatment Not on filedocumented as of this encounter Visit Diagnoses + + | Diagnosis | + + | CKD (chronic kidney disease) stage 4, GFR 15-29 ml/min ([facility]) - Primary Chronic kidney | | disease, [...]
--- OUTSIDE RECORDS SUMMARY | ~2019-11-13 | XMS | Encounter Summary ---
Demographics + + + | Address | [address] [facility] | | | [place] [address] | + + + | Home Phone [...] + + + | Author | [facility] | | | and [place] | + + + | Organization | [facility] | [...] Team Providers + +------+ + | Care Stucco Worker Name | Role | Phone | + +------+ + | Lizet Oliva | PCP | | + +------+ + Encounter Details +--------+ + + + + | Date | Type | Department | Care Team | Description | +--------+ + + + + | 08/02/ | Orders Only | [facility] | Matty Bingham MD | Essential | | 2020 | | NEPHROLOGY [place] | [address] [place] | hypertension | | | | [address] | [address] [place], [place] | (Primary Dx); CKD | | | | [address] [place] [address] | [address] | (chronic kidney | | | | [place], [place] | | disease) stage 4, | | | | [address] | | GFR 15-29 ml/min | | | | [phone] | | (HCC); Nephrotic | | | [...] | | | | | ([facility]) Nephrotic | | | | | | [...] | | | | | ([facility]) Nephrotic | | | | | | [...] | | | | | ([facility]) Nephrotic | | | | | | [...]
--- OUTSIDE RECORDS SUMMARY | ~2019-11-13 | XMS | Encounter Summary ---
Demographics + + + | Address | [address] [facility] | | | [place] [address] | + + + | Home Phone | | + + + | Preferred Language | Unknown | + + + | Marital Status | Unknown | + + + | Voodoo Affiliation | Unknown | + + + | Race | Unknown | + + + | Ethnic Group | Unknown | + + + Author + + + | Author | [facility] | | | and [place] | + + + | Organization | [facility] | | | [...] Team Providers + +------+ + | Care Scan Coordinator Name | Role | Phone | + +------+ + | Benny James MD | PCP | | + +------+ + Encounter Details +--------+ + + + + | Date | Type | Department | Care Team | Description | +--------+ + + + + | 07/23/ | Orders Only | [facility] | Matty Bingham MD | Chronic kidney | | 2020 | | [facility] | [address] [place] | disease, stage IV | | | | [address] [place] | [address] [place], [place] | (severe) (HCC) | | | | [address] [place], [place] | [address] | (Primary Dx) | | | | [address] | | | | | | [phone] | | | +--------+ + + + [...] of this encounter Plan of Treatment + +------+--------+ + + [...] Expires: | | | | | (severe) ([facility]) | 07/23/2020 | + +------+--------+ + + | Urinalysis With | Lab | Routin | Chronic kidney | Expected: | | Microscopic | | e | disease, stage IV | 07/26/2019, Expires: | | | | | (severe) ([facility]) | 07/23/2020 | + +------+--------+ + + | CBC with | Lab | Routin | Chronic kidney | Expected: | | Differential | | e | disease, stage IV | 07/26/2019, Expires: | | | | | (severe) ([facility]) | 07/23/2020 | + +------+--------+ + + documented as of this encounter Visit Diagnoses + + | Diagnosis | + + | Chronic kidney disease, stage IV (severe) (HCC) - Primary Chronic kidney disease, | | Stage IV (severe) | + + documented in this encounter"
--- OUTSIDE RECORDS SUMMARY | ~2019-11-13 | XMS | Encounter Summary ---
Demographics + + + | Address | [address] [facility] | | | [place] [address] | + + + | Home Phone [...] Providers + +------+ + | Care Computer Software Engineer Name | Role | Phone [...] | | Fall, | Graham | [address] | | | | | initial | MD Anup | [place], | | | | | encounter | [address] | [place] [address] | | | | | Nonintractab | St [place] | Phone: | | | | | le headache, | [place], [place] | [phone] | | | | | unspecified | [address] | Fax: | | | | | chronicity | Phone: | [phone] | | | | | pattern, | [phone] | | | | | | unspecified | Fax: | | | | | | headache | [phone] | | | | | | type [...] Closed | | Cardiology | Diagnoses | Pj, | [facility] | | | | | A-ky ([facility]) | Lizet White, | Cardiology | | | | | Procedures | WIRE STRAIGHTENING MACHINE OPERATOR 77 | [address] | | | | | PASSENGER ELEVATOR OPERATOR | [place] | [place], | | | | | | [address] | [place] | | | | | | [place] | [address] | | | | | | [address] | Phone: | | | | | | Phone: | [phone] | | | | | | [phone] | Fax: | | | | | | Fax: | [phone] | | | | | | [phone] | | +--------+--------+ + + + + Encounter Details +--------+---------+ + + + | Date | Type | Department | Care Team | Description | +--------+---------+ + + + | 11/01/ | Office | [facility] | Maxood, Graham | Atrial fibrillation | | 2020 | Visit | CARDIOLOGY [address] | MD Anup [address] | with RVR (HCC) | | | | [place], | [address] [place] | (Primary Dx); Acute | | | | [place] [address] | [place] [address] | heart failure with | | | | [phone] | [phone] | preserved ejection | | | | [...] kidney disease) stage 4, GFR 15-29 ml/min ([facility]) 07/28/2019 Diabetes mellitus ([facility]) 07/28/2019 Hypertension 07/28/2019 Nicotine dependence 07/28/2019 History [...] PLT 241 10/07/2019 I reviewed records from [facility] for hospitalization,including H& P, Discharge Summary [...] will refer her to the emergency [facility] for urgent repeat CT imaging today, especially [...] and management. I, Graham Black MD, PhD, [facility] personally performed the services described in this documentation. All medical record entries made by the clinical landing support specialist were at my dir ection. I have reviewed the documentation and discharge instructions (if appropriate), and edited the documentation if necessary. I agree that the record reflects my personal performa nce and is accurate and complete for visit date 11/02/2019. Portions of this report were transcribed using voice recognition software. Every effort wa s made to ensure accuracy; however, inadvertent computerized harness puller errors may be pre sent. Electronically signed by: Mary Black MD PhD [facility] 11/02/2019 documented in t his encounter [...] | | | | | | RVR ([facility]) | | + +--------+ + + [...] MD | | | | | | ([id number]) on 11/04/2019 | | | | | [...]
--- OUTSIDE RECORDS SUMMARY | ~2019-11-13 | XMS | Encounter Summary ---
Demographics + + + | Address | [address] [facility] | | | [place] [address] | + + + | Home Phone [...] Team Providers + +------+ + | Care Voip Network Technician Name | Role | Phone | + +------+ + | Lizet Oliva | PCP | | + +------+ + Reason for Visit +--------+--------+ + | Reason | Onset | Comments | | | Date | | +--------+--------+ + | Other | 11/03/ | records sent - [facility] | | | 2020 | | +--------+--------+ + Encounter Details +--------+ + + + + | Date | Type | Department | Care Team | Description | +--------+ + + + + | 11/03/ | Telephone | [facility] | Graham Black | Other (records sent | | 2019 | | [place] [address] | MD An[address] | - [facility]) | | | | [place], | [address] [place] | | | | | [place] [address] | [place] [address] | | | | | [phone] | [phone] | | | | | | | [...] with script for Tamiko faxed to [facility] at [phone] .......... .................................Betzaida Arenas RN, on 11/04/19 at 10:20 AM documented in this encounter Plan of Treatment Not on filedocumented as of this encounter Visit Diagnoses Not on filedocumented in this encounter"
--- OUTSIDE RECORDS SUMMARY | ~2019-11-13 | XMS | Encounter Summary ---
Demographics + + + | Address | [address] [facility] | | | [place] [address] | + + + | Home Phone [...] Providers + +------+ + | Care Electrical Tester Battery Name | Role | Phone | + [...] + + | 08/03/ | Telephone | [facility] | Matty Bingham MD | Other (RBC ua | | 2020 | | NEPHROLOGY [place] | [address] [place] | result) | | | | [address] | [address] [place], [place] | | | | | [address] | [address] | | | | | [place], [place] | | | | | | [address] | | | | | | [phone] | | | +--------+ + + + [...] Miscellaneous Notes Telephone Encounter - Gabbi [place] Ui Software Engineer - 08/04/2019 5:39 PM PDTinter path reports [...] t results. Please call them back at [phone], you may speak to any of the client services specialis t to get the updated information. Next OV: [facility] COLORER Consult do cumented in this encounter Plan of Treatment Not on filedocumented as of this encounter Visit Diagnoses Not on filedocumented in this encounter"
--- OUTSIDE RECORDS SUMMARY | ~2019-11-13 | XMS | Encounter Summary ---
Demographics + + + | Address | [address] [facility] | | | [place] [address] | + + + | Home Phone [...] Team Providers + +------+ + | Care Picker And Packer Name | Role | Phone | + +------+ + PCP | Unavailable | + +------+ + Encounter Details +--------+ + + + + | Date | Type | Department | Care Team | Description | +--------+ + + + + | 07/27/ | Hospital | [facility] | Yon Jc MD | | | 2011 | Encounter | HOSPITAL EMERGENCY | | | | | | [address] | | | | | | [address] [place], [place] | | | | | | [address] | | | | | | [phone] | | | +--------+ + + + [...]
--- OUTSIDE RECORDS SUMMARY | ~2019-11-13 | XMS | Encounter Summary ---
Demographics + + + | Address | [address] [facility] | | | [place] [address] | + + + | Home Phone [...] Providers + +------+ + | Care Hand Glass Cutter Name | Role | Phone | [...] | 10/04/ | Hospital | [facility] | Paulo Ayers MD | Paroxysmal atrial | | 2019 - | Encounter | [facility] | [address] | fibrillation ([facility]); | | | | [address] | [place] | Atrial fibrillation | | 10/06/ | | [facility] [place] [address] | [id number] | with RVR ([facility]); | | 2019 | | [phone] | | Acute heart failure | | | | | | with preserved | | | | | | ejection fraction | | | | | | ([facility]); CKD (chronic | | | | | | kidney disease) | | | | | | stage 4, GFR 15-29 | | | | | | ml/min ([facility]); | | | | | [...] E' Septal Velocity 5.38 cm/s MV Deceleration [place] 700.72 cm/s2 MV Deceleration Time 132.19 msec [...] at least 3 weeks - Hospitalized in [place] for a day in August for rate [...] with RVR, would not ca ll this NH Diabetes mellitus type 2, insulin dependent with [...] Nicole PA-C In 1 month. Specialties: Physician Hand Hardener, Cardiology Contact information: [facility] [address] [facility] [address] Discharge Medications New Medications Details [...] to take when to take this aka: LANT SOLOSTAR metoprolol tartrate 25 mg tablet Take [...] by: Travis Copeland MD, 10/07/2019 1:25 PM [facility] documented in this encounter Discharge [...] | | | | | | | [id number]= 2 | | | | | | | -355= 3 | | | | | | | -461= 4 | | | | | | [...] of this encounter Progress Notes Leo Cerna, Slubber Frame Changer - 10/07/2019 3:26 PM PDTPHARMACY SERVICES: METOP [...] before initiating an y new medications (e.g., nung-yyn-mzaxkyk) WARFARIN Indication for medication Importance of following-up with outpatient [place] clinic for warfarin dosing Importance of continuation [...] before initiating an y new medications (e.g., ajrf-ssw-uovzmbf) Assessment/Plan: 1. Patient was provided a handout/booklet on Metoprolol Tartrate and Warfarin 2. Patient demonstrated understanding and all questions were answered. 3. Please consult pharmacist for any further medication related education. 4. Thank you. Electronically signed by: Leo Cerna, Slubber Frame Changer 10/07/2019 3:27 PM Travis Membreno MD - 10/06/2019 4:22 PM PDTFormatting of this note might be different f rom the original. [facility] Hospitalist Progress Note Lizet Delgado [...] at least 3 weeks - Hospitalized in [place] for a day in August for rate [...] with RVR, would not ca ll this NH Diabetes mellitus type 2, insulin dependent with [...] ECGs available Confirmed by HILDA WEBB, JOSEPHINE ([id number]) on 10/06/2019 6:26:09 AM POC Glucose Result [...] E' Septal Velocity 5.38 cm/s MV Deceleration [place] 700.72 cm/s2 MV Deceleration Time 132.19 msec [...] above. Travis Copeland MD 10/06/2019 4:25 PM [facility] - 10/06/2019 7:30 AM PDT RENAL DOSE [...] Ayers MD - 10/05/2019 10:46 PM PDT [facility] HISTORY AND PHYSICAL Pt. Name/Age/: Lizet Delgado [...] sounds in her ears. 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 Type II NH: Troponin elevation likely due to rapid ventricular [...] by: Paulo Ayers MD 10/05/2019 11:43 PM [facility] documented in this enc ounter Consult Notes Graham Black MD - 10/07/2019 10:40 AM PDTFormatting of this note might be differe nt from the original. PATIENT NAME: Lizet Delgado : 1950: AGE: 69 y.o. ADMISSION DATE: 10/05/2019 HOSPITAL DAY NUMBER: [id number] PRIMARY CARE: [facility] Salvador REFERRING PROVIDER: Dr. Travis Copeland CONSULTING PROVIDER: Mary Black MD [facility] CARDIOLOGY CONSULTATION DATE OF CONSULTATION: 10/07/19 REASON FOR CONSULT: Atrial fibrillation HISTORY OF PRESENT ILLNESS: Lizet Delgado is a 69 y.o. female with a history of paroxysmal atrial fibrillation, t obacco use, IDDM type II, diabetic nephropathy, CKD IV, and HTN. She was admitted to [facility] on 10/05/2019 for Atrial fibrillation with RVR ([facility]). She has as sociated heart [...] kidney disease) stage 4, GFR 15-29 ml/min ([facility]) 07/28/2019 Diabetes mellitus ([facility]) 07/28/2019 Hypertension 07/28/2019 Nicotine dependence [...] file Gets together: Not on file Attends rastafarian service: Not on file Active member of [...] E' Septal Velocity 5.38 cm/s MV Deceleration [place] 700.72 cm/s2 MV Deceleration Time 132.19 msec [...] Female Gender (1), giving her a C [id number] of 5, estimating a 5=6.7% risk of [...] this chart may have been created with Swidjit voice recognition software. Occasi onal wrong-word or [...] to pick-up meds from the [facility]. Prior to discharge Dr. Copeland decided she [...] discharge orders. She is a [facility] patient of [facility] and [facility] Scripts [facility]ed to team Strength and CANDE notifamy osborn that she will need followed in the coumadin clinic. Plan: Home, pickling grader [facility]. Her Son is picking her up.Electronically si gned by: Peggy Gilliam RN 10/07/2019 3:34 PM [facility], because Lizet lives in [place] and would like to get on the ro ad. Finally got an answer at [facility] Martinez office. The prescriptions are on her d esk, but not signed. RN at [place] states pharmacy closes at 1630. Lizet's Son [...] home after meds picked up at the [place].Electronically sign ed by: Peggy Gilliam RN 10/07/2019 [...] want the patch, slept between cares. Call li ght within reach, calls appropriatly, will continue to monitor. lan of Care - Chelsey Weaver RN - 10/06/2019 6:38 PM PDTLizet went back into Afib at 0919 this am and back out at 1144. HR per telescope repairer was 120-140. Lizet stated she felt fatigued [...] y.o. female who is admitted for Afib. Professor Of Biblical Studies had a pleasant visit with the patient. Patient want to smoke in the worst way. I told the patient that isn't going to happen while she is in the hospital. Active listening/pastoral support provided. Prayer was offered. Will see the patient as requested. If there are any other spiritual care issues that arise, please contact php mysql web developer. lan of Jamin Guardado LICSW - 10/06/2019 11:44 AM PDTVisited with this patient who was admit edgar with chest pain. The patient is a and is not service connected. She lives in a ground floor apartment with hr little dog in [place]. Patient still drives and alternate s in using a cane and a walker. She has a son living in [place] who will pick her up and take her home. 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 Patient still smokes and will want to return to smoking after her hospital stay.Electro nically signed by: BETTY Santiago 10/06/2019 11:50 AM lan of Care - Yamila, Ana Guerrier RN - 09/23 5:31 AM PDTArrived to [...] [address] | [place] | [phone] | | [facility] | | [address] | | | - LABORATORY | | [...] [address] | [place] | [phone] | | [facility] | | [address] | | | - LABORATORY | | [...] [address] | [place] | [phone] | | [facility] | | [address] | | | - LABORATORY | | [...] + | [facility] | [address] | [place] | [phone] | | [facility] | | [address] | | | - LABORATORY | | [...] | | | | | | [facility] | | | | | | MEDICAL [...] | | | | | g/dL | [facility] | | | | | [...] [facility] | | | | | | [facility] | | | | | | MEDICAL | | | | | | CENTER - | | | | | | LABORATORY | | + + + + + + | % nRBC | 0 | 0 - 2 per 100 | [facility] | | | | | WBCs | [facility] | | | | | | MEDICAL [...] + | [facility] | [address] | [place] | [phone] | | [facility] | | [address] | | | - LABORATORY | | [...] 2.68 (H) | 0.55 - 1.02 | [facility] | | | | | mg/dL | [facility] | | | | | | MEDICAL | | | | | | CENTER - | | | | | | LABORATORY | | + + + + + + | eGFR if not | 18 (L)Comment: | >=60 | [facility] | | | | GLOMERULAR FILTRATION | mL/min/1.73m2 | [facility] | | | IRISH | RATE,ESTIMATED | | MEDICAL | | | | mL/min/1.76s3Eowz than | | CENTER - | | [...] | 9.9 | 8.7 - 10.4 | [facility] | | | | | mg/dL | [facility] | | | | | [...] [address] | [place] | [phone] | | [facility] | | [address] | | | - LABORATORY | | | | + + + + + POC Glucose (10/06/2019 10:06 PM PDT) + +---------+ + + + | Component | Value | Ref Range | Performed | Pathologist | | | | | At | Signature | + +---------+ + + + | Glucose, | 167 (H) | 70 - 109 mg/dL | [facility] | | | POC | | | [...] + | [facility] | [address] | [place] | [phone] | | [facility] | | [address] | | | - LABORATORY | | [...] [address] | [place] | [phone] | | [facility] | | [address] | | | - LABORATORY | | [...] | | | | | | n [place] | | | | | + +--------+ [...] 321 | | | LIZET Patient Number [id number] Date of Study | | | 10/06/2019 Visit Number [id number] Referring | | | Physician ORVILLE FULTON | | | Pool Player MARY [facility] Number Date of | | | 1950 Interpreting ELADIA BLACK MD | | | Physician Age | | | 69 year(s) Nurse Gender Female | | | Stress Dietitian Teaching Procedure Type of Study TTE | | | procedure:ECHO Complete. Procedure DateDate: 10/06/2019 Start: 02:51 | | | PM Study Location: [facility] Quality: Adequate visualization | | | [...] | | | Electronically signed by ELADIA BALCK MD (Interpreting physician) on | | | [...] + + | Peewee, Rad Results In 10/06/2019 5:21 PM PDT Transthoracic Echocardiography Report | | (TTE) Demographics Patient Name DENNISEOXANA Room Number 321 | | LIZET Patient Number [id number] Date of Study 10/06/2019 Visit | | Number [id number] Referring Physician ORVILLE FULTON Accession | | [id number] Pool Player MARYKARO STEPHENS [facility] Number Date of | | 1950 Interpreting ELADIA BLACK MD | | Physician Age 69 year(s) Nurse Gender Female | | Stress TechnicianProcedureType of Study TTE procedure:ECHO Complete.Procedure | | DateDate: 10/06/2019 Start: 02:51 PMStudy [facility] Adequate | | visualizationIndications:Atrial fibrillation, unspecified [...] [address] | [place] | [phone] | | [facility] | | [address] | | | - LABORATORY | | [...] + | [facility] | [address] | [place], [place] | [phone] | | [facility] | | [address] | | | - LABORATORY | | [...] | | | | | uIU/mL | LI[facility] | | | | | [...] + | [facility] | [address] | [place], [place] | [phone] | | [facility] | | [address] | | | - LABORATORY | | | | + + + + + Magnesium (10/06/2019 5:25 AM PDT) + +-------+ + + + | Component | Value | Ref Range | Performed | Pathologist | | | | | At | Signature | + +-------+ + + + | Magnesium | 1.9 | 1.6 - 2.6 mg/dL | [facility] | [address] | [place] | [phone] | | [facility] | | [address] | | | - LABORATORY | | [...] [address] | [place] | [phone] | | [facility] | | [address] | | | - LABORATORY | | [...] mL/min/1.73m2 | [facility] | | | [place] | RATE,ESTIMATED | | MEDICAL | | | | mL/min/1.99e9Vvjm than | | CENTER - | | [...] + | [facility] | [address] | [place], [place] | [phone] | | [facility] | | [address] | | | - LABORATORY | | [...] | | | | | | [employer] | | | | | [...] [address] | [place] | [phone] | | [facility] | | [address] | | | - LABORATORY | | [...] method in use as of | | [facility] | | | | July 22, [...] [address] | [place] | [phone] | | [facility] | | [address] | | | - LABORATORY | | [...] + | [facility] | [address] | [place], [place] | [phone] | | [facility] | | [address] | | | - LABORATORY | | [...] | | | | JOSEPHINE STEVENS MD ([id number]) | | | | | | on [...] | mL/min/1.73m2 | [facility] | | | IRISH | RATE,ESTIMATED | | MEDICAL | | | | mL/min/1.56u5Ixib than | | CENTER - | | [...] [address] | [place] | [phone] | | [facility] | | [address] | | | - LABORATORY | | [...] | | | | | | [employer] | | | | | [...] [address] | [place] | [phone] | | [facility] | | [address] | | | - LABORATORY | | [...] | heparin 5,000 units/mL | Given | 05/14/20 | 5,000 | | Abdomen- | | [...] | | | | | | | 8719-0422 Use NIGHT DOSE for | | | | | | | doses scheduled: HS, | | | | | | | Nighttime 4434-3239 If the BG is | | | [...] | | | | | | | 6403-7579 Use NIGHT DOSE for | | | | | | | doses scheduled: HS, | | | | | | | Nighttime 5904-0706 If the BG is | | | [...] PRN, Nicotine Craving, | | | Starting [facility] 10/05/19 at 2250 | | + +---+ | | | + +---+ | ondansetron (ZOFRAN) injection | | | 4 mg 4 mg, Intravenous, EVERY 6 | | | HOURS PRN, Nausea, Vomiting, | | | Starting [facility] 10/05/19 at 2237, | | | First line agent, | | + +---+ | | | + +---+ | pharmacy consult - other | | | medications/reasons PHARMACY | | | CONSULT, Starting [facility] 10/07/19 at | | | 1415, Pharmacy [...] | | | | First dose on [facility] 10/07/19 at | | PM PDT | [...]
--- OUTSIDE RECORDS SUMMARY | ~2019-11-13 | XMS | Encounter Summary ---
Demographics + + + | Address | [address] [facility] [address] | | | [place] [address] | + + + | Home Phone [...] Organization | [facility] | | | and [place] | + [...] Team Providers + +------+ + | Care Cotton Seed Culler Name | Role | Phone | + [...] | | | | [address] | [place] [address] | | | | | [place], [place] | [phone] | | | | | [address] | | | | | | [phone] | | | +--------+ + + + [...]
--- OUTSIDE RECORDS SUMMARY | ~2019-11-13 | XMS | Encounter Summary ---
Demographics + + + | Address | [address] [facility] | | | [place] [address] | + + + | Home Phone [...] Team Providers + +------+ + | Care Well Logging Captain Name | Role | Phone | + +------+ + PCP | Unavailable | + +------+ + Encounter Details +--------+ + + + + | Date | Type | Department | Care Team | Description | +--------+ + + + + | 11/24/ | Hospital | [facility] | Maximilian Benoit | | | 2007 | Encounter | CONVERSION | MD [address] | | | | | [address] | [address] | | | | | [address] | [place] [address] | | | | | [place], [place] | [phone] | | | | | [address] | | | | | | [phone] | | | +--------+ + + + [...]
--- OUTSIDE RECORDS SUMMARY | ~2019-11-13 | XMS | Encounter Summary ---
Demographics + + + | Address | [address] [facility] [address] | | | [place] [address] | + + + | Home Phone [...] Team Providers + +------+ + | Care Laboratory Engineer Name | Role | Phone | [...] [address] | | | | | | [place], [place] | | | | | | [address] | | | | | | [phone] | | | +--------+ + + + [...]
--- OUTSIDE RECORDS SUMMARY | ~2019-11-13 | XMS | Encounter Summary ---
Demographics + + + | Address | [address] [facility] | | | [place] [address] | + + + | Home Phone | | + + + | Preferred Language | Unknown | + + + | Marital Status | Unknown | + + + | Caodaism Affiliation | Unknown | + + + [...] Team Providers + +------+ + | Care Gas Turbine Powerplant Mechanic Helper Name | Role | Phone | [...] | HOSPITAL XRAY [address] | [address] | | | | | [address] | [address] | | | | | [place] | [place] [address] | | | | | [address] | [phone] | | | | | [phone] | | | +--------+ + + + [...]
--- OUTSIDE RECORDS SUMMARY | ~2019-11-13 | XMS | Encounter Summary ---
Demographics + + + | Address | [address] [facility] | | | [place] [address] | + + + | Home Phone [...] Team Providers + +------+ + | Care Peanut Shaker Name | Role | Phone | + [...] [address] | | | | | | [place], [place] | | | | | | [address] | | | | | | [phone] | | | +--------+ + + + [...]
--- OUTSIDE RECORDS SUMMARY | ~2019-11-13 | XMS | Encounter Summary ---
Demographics + + + | Address | [address] [facility] | | | [place] [address] | + + + | Home Phone [...] Team Providers + +------+ + | Care Golf Course Superintendent Name | Role | Phone | + +------+ + | Lizet Oliva | PCP | | + +------+ + Reason for Visit +--------+ + | Reason | Comments | +--------+ + | Other | Signed letter sent to [place] for patients PCP confirmation received | +--------+ + Encounter Details +--------+ + + + + | Date | Type | Department | Care Team | Description | +--------+ + + + + | 09/01/ | Documentati | [facility] | Art, | Other (Signed letter | | 2020 | on | NEPHROLOGY [place] | Naomi Seo | sent to [place] for | | | | [address] | International Recruiter | patients PCP | | | | [address] | | confirmation | | | | [place], [place] | | received) | | | | [address] | | | | | | [phone] | | | +--------+ + + + [...]
--- OUTSIDE RECORDS SUMMARY | ~2019-11-13 | XMS | Encounter Summary ---
Demographics + + + | Address | [address] [facility] | | | [place] [address] | + + + | Home Phone | | + + + | Preferred Language | Unknown | + + + | Marital Status | Unknown | + + + | Presybeterian Affiliation | Unknown | + + + [...] Providers + +------+ + | Care Administrative Assistant Name | Role | Phone | [...] | | | [address] | [place] [address] | | | | | [place], [place] | [phone] | | | | | [address] | | | | | | [phone] | | | +--------+ + + + [...]
--- OUTSIDE RECORDS SUMMARY | ~2019-11-13 | XMS | Encounter Summary ---
Demographics + + + | Address | [address] [facility] [address] | | | [place] [address] | + + + | Home Phone | | + + + | Preferred Language | Unknown | + + + | Marital Status | Unknown | + + + | Confucianism Affiliation | Unknown | + + + [...] Team Providers + +------+ + | Care Medical Affairs Manager Name | Role | Phone | [...] + + | 07/28/ | Documentati | [facility] | [place], | Results (07/28/19) | | 2020 | on | NEPHROLOGY [place] | [facility] | | | | | [address] | Securities Counselor | | | | | [address] [facility] [place] | | | | | | [address] | | | | | | [phone] | | | +--------+ + + + [...] 1.001 - 1.030 | | | | [place], | | | | | | Urine [...]
--- OUTSIDE RECORDS SUMMARY | ~2019-11-13 | XMS | Encounter Summary ---
Demographics + + + | Address | [address] [facility] | | | [place] [address] | + + + | Home Phone [...] Providers + +------+ + | Care Metal Machinist Name | Role | Phone | + +------+ + | Benny James MD | PCP | | + +------+ + Encounter Details +--------+ + + + + | Date | Type | Department | Care Team | Description | +--------+ + + + + | 07/27/ | Orders Only | [facility] | Art, | | | 2019 | | NEPHROLOGY [place] | Naomi Seo | | | | | [address] | Auction Block Clerk | | | | | [address] [place], [place] | | | | | | [address] | | | | | | [phone] | | | +--------+ + + + [...] 1.001 - 1.030 | | | | [place], | | | | | | Urine [...]
--- OUTSIDE RECORDS SUMMARY | ~2019-11-13 | XMS | Encounter Summary ---
Demographics + + + | Address | [address] [facility] | | | [place] [address] | + + + | Home Phone [...] Team Providers + +------+ + | Care Ophthalmology Technician Name | Role | Phone | [...] | Encounter | CONVERSION | MD [address] | | | | | [address] | [address] | | | | | [address] | [place] [address] | | | | | [place], [place] | [phone] | | | | | [address] | | | | | | [phone] | | | +--------+ + + + [...]
--- OUTSIDE RECORDS SUMMARY | ~2019-11-13 | XMS | Encounter Summary ---
Demographics + + + | Address | [address] [facility] | | | [place] [address] | + + + | Home Phone [...] Providers + +------+ + | Care Product Support Representative Name | Role | Phone | + +------+ + PCP | Unavailable | + +------+ + Encounter Details +--------+ + + + + | Date | Type | Department | Care Team | Description | +--------+ + + + + | 08/11/ | Hospital | [facility] | Aníbal Self | | | 2011 | Encounter | HOSPITAL EMERGENCY | MD [address] | | | | | [address] | | | | | [address] [place], [place] | [place], [place] | | | | | [address] | [address] | | | | | [phone] | [phone] | | | | | | | [...]
[~2019-11-13 15:08] MED LIST changes: +AMIODARONE HCL400 MG PO; +APPLE CIDER VI500 MG PO; +ARTIFICIAL TEAR15 M6 OU; +COUMADIN5 MG PO; +IPRAT-ALBUT 0.5-3 ML INH; +LASIX40 MG PO; +METOPROLOL SUC100 MG PO; +MIRAPEX0.125 MG PO; +SPIRULINA500 MG PO; +WARFARIN SODIUM5 MG PO
--- OUTSIDE RECORDS SUMMARY | 2019-11-13 15:12 | XMS ---
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 Care History Medical/Surgical 07/13/2019 [facility] - PATIENT IS A AND RECEIVED SERVICES AT THE [facility] . - PATIENT HAS AN MEDICINE TECHNOLOGIST AT THE [facility]- [phone] EXT [phone]. - PATIENT PCP HAS NOT RECEIVED RECORDS FROM RECENT ED VISITS-CHW CONTACTED MEDICAL RECORDS AND PROVIDED FAX NUMBER TO HAVE RECENT ED RECORDS SENT FOR FOLLOW UP-PCP WILL BE IN CONTACT WITH PATIENT. [facility] (12 MO.) [facility] [address] [place] [address] TOTAL 8 NOTE: Visits indicate total known visits. ED/UCC VISIT TRACKING (12 MO.) 11/13/2019 15:10 [facility] [place] TYPE: Emergency COMPLAINT: - ANKLE PAIN, FALL 11[facility]02/2019 15[facility] DIAGNOSES: - Postconcussional syndrome - fall - Multiple Falls - Occlusion and stenosis of bilateral carotid arteries - Headache (Adult - New Onset Or New Symptoms) 10/26/2019 03:06 [facility] [place] TYPE: Emergency COMPLAINT: - FALL/HEAD LAC 10/20/2019 21:41 [facility] [place] [place] TYPE: Emergency COMPLAINT: - SOB 10/05/2019 16:44 [facility] [place] TYPE: Emergency COMPLAINT: - DIZZINESS/SOB DIAGNOSES: - Nicotine dependence, unspecified, uncomplicated - Allergy status to other antibiotic agents status - Allergy status to sulfonamides status - Paroxysmal atrial fibrillation - Unspecified atrial fibrillation - extermination supervisor (current) use of insulin - Type 2 diabetes mellitus without complications - Essential (primary) hypertension - Other long-term (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 - Dizziness and giddiness 09/17/2019 06:53 [facility] [place] TYPE: Emergency COMPLAINT: - BLOOD PRESSURE [...] to other specified factors, initial encounter - custodial (current) use of aspirin - Type 2 diabetes mellitus without complications - Allergy status to other antibiotic agents status - Other equipment operator intermodal yard (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 - Other bursitis of elbow, right elbow - Unspecified sprain of right elbow, initial encounter INPATIENT VISIT TRACKING (12 MO.) 10/26/2019 03:07 [facility] [place] TYPE: Observation COMPLAINT: - A-FIB/RVR DIAGNOSES: - Acquired absence of both cervix and uterus - Acquired absence of other organs - Type 2 diabetes mellitus with diabetic chronic kidney disease - extermination supervisor (current) use of anticoagulants - Other long-term (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 - Other specified postprocedural states - Hypertensive heart and chronic kidney disease without heart f - Chronic kidney disease, stage 4 (severe) - Allergy status to other antibiotic agents status - Nicotine dependence, unspecified, uncomplicated - Hyperlipidemia, unspecified - custodial (current) use of insulin - Unspecified atrial fibrillation - Abnormal coagulation profile - Allergy status to sulfonamides status - Restless legs syndrome 10/21/2019 09:28 [facility] [place] TYPE: Medical Surgical COMPLAINT: - A FIB / RVR DIAGNOSES: - Allergy status to other drugs, medicaments and biological sub - Disorder of kidney and ureter, unspecified - Chronic kidney disease, stage 4 (severe) - Hypercalcemia - Disorder of kidney and ureter, unspecified - Allergy status to other antibiotic agents status - Nicotine dependence, unspecified, uncomplicated - Hypercalcemia - Type 2 diabetes mellitus with diabetic chronic kidney disease - Dehydration - custodial (current) use of insulin - Type 2 diabetes mellitus with diabetic chronic kidney disease - Hyperlipidemia, unspecified - Paroxysmal atrial fibrillation - Hypertensive chronic kidney disease with stage 1 through stag - Other long-term (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 - Other equipment operator intermodal yard (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 - Nicotine dependence, unspecified, uncomplicated - Repeated falls - Contact with and (suspected) exposure to other viral communic - Allergy status to sulfonamides status - Repeated falls - Contact with and (suspected) exposure to other viral communic - Chronic kidney disease, stage 4 (severe) - Allergy status to sulfonamides status - Dehydration - custodial (current) use of insulin - Hypertensive chronic kidney disease with stage 1 through stag - Allergy status to other antibiotic agents status - extermination supervisor (current) use of anticoagulants - extermination supervisor (current) use of anticoagulants - Hyperlipidemia, unspecified - Allergy status to other drugs, medicaments and biological sub 10/05/2019 22:09 [facility] [place] TYPE: Surgical Services DIAGNOSES: - Acute diastolic (congestive) heart failure - Chronic kidney disease, stage 4 (severe) - Afib - Tobacco use - Unspecified atrial fibrillation - Paroxysmal atrial fibrillation 09/17/2019 06:54 [facility] TYPE: Observation COMPLAINT: - NEW ONSET AFIB RVR DIAGNOSES: - Acute kidney failure, unspecified - custodial (current) use of oral hypoglycemic drugs - Chronic kidney disease, unspecified - Hypertensive chronic kidney disease with stage 1 through stag - Unspecified atrial fibrillation - Palpitations - Allergy status to sulfonamides status - custodial (current) use of aspirin - Type 2 diabetes mellitus with diabetic nephropathy - Other equipment operator intermodal yard (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 - Type 2 diabetes mellitus with diabetic chronic kidney disease - Allergy status to other drugs, medicaments and biological sub - Nicotine dependence, unspecified, uncomplicated - Allergy status to other antibiotic agents status [email or web address]
[2019-11-13] MEDS ORDERED: NORCO 5-325 TA1 EACH PO (20:09)
--- NOTE | 2019-11-13 20:44 | EKG ---
[facility] [address] [facility] [place] [address] Signed Sinus bradycardia Nonspecific T wave abnormality Abnormal ECG When compared with ECG of 26-OCT-2019 03:49, Sinus rhythm has replaced Atrial fibrillation Vent. rate has decreased BY 57 BPM Non-specific change in ST segment in Inferior leads ST no longer depressed in Anterolateral leads Nonspecific T wave abnormality has replaced inverted T waves in Inferior leads Confirmed by FLORI FLORES MD ([id number]) on 11/13/2019 8:44:18 PM Electronically Signed By: FLORI FLORES MD 11/13/19 2044 PATIENT NAME: SHARYN HAND Electrocardiogram DATE OF : 48 PHYSICIAN: FLORI FLORES MD REPORT #: [id number] REPORT IS CONFIDENTIAL AND NOT TO BE RELEASED WITHOUT AUTHORIZATION
--- NOTE | 2019-11-13 22:30 | NUR ---
PT ARRIVED TO FLOOR VIA STRETCHER, SCOOTED TO THE BED WITH ASSISTANCE. ADMISSION PROCESS COMPLETE. PT ORIENTED TO ROOM AND POC FOR THIS SHIFT. ICE WATER, SUGAR FREE JELLO AND PUDDING, ENSURE, AND SARAH CRACKERS PROVIDED PER PT REQUEST. SHE REPORTS THAT SHE HAS NOT EATEN SINCE YESTERDAY AT DINNER TIME. PT DENIES FURTHER NEEDS AT THIS TIME. CALL LIGHT IN REACH.
--- NOTE | 2019-11-13 23:30 | NUR ---
ASSESSMENT COMPLETE. SCHEDULED MEDS ADMINISTERED WITHOUT ISSUE. BLOOD GLUCOSE CHECKED PER PT REQUEST. PT ASYMPTOMATIC BUT CHECKS HER BLOOD GLUCOSE AT NIGHT WHEN SHE IS HOME. INSULIN ADMINISTERED PER EMAR. PT DENIES PAIN. RIGHT FOOT REMAINS IN WALKING BOOT. PT REPORTS NEUROPATHY AT BASELINE. PEDAL PULSES STRONG BILAT. TELE #4 SINUS ADY. IVF INFUSING. PT ORIENTED TO ROOM AND NURSE CALL LIGHT. NO FURTHER QUESTIONS/NEEDS AT THIS TIME. CALL LIGHT IN REACH.
--- NOTE | 2019-11-14 01:56 | NUR ---
PT RESTING IN BED WITH EYES CLOSED, NAD. RR EVEN AND UNLABORED.
--- NOTE | 2019-11-14 02:34 | NUR ---
VS AND I&0 COMPLETE. PT UP TO BSC WITH 2PA AND FWW. TDWB ON RIGHT LEG WITH BOOT ON. BACK TO BED, VICK WELL. PT DENIES NEEDING PRN FOR PAIN. REPOSITIONED TO LEFT SIDE. NO FURTHER NEEDS. CALL LIGHT IN REACH.
--- NOTE | 2019-11-14 04:10 | NUR ---
PT RESTING ON LEFT SIDE WITH EYES CLOSED. RR EVEN AND UNLABORED. IVF INFUSING. TELE #4 SINUS ADY, HR 51. CALL LIGHT IN REACH.
--- NOTE | 2019-11-14 05:26 | NUR ---
ASSESSMENT COMPLETE. PT RETURNING TO BED AFTER USING BSC WITH 2PA. REPORTS "IF I LAY STILL, I DON'T HURT". DENIES PRN FOR PAIN. IVF INFUSING. NO FURTHER NEEDS. CALL LIGHT IN REACH.
--- NOTE | 2019-11-14 06:10 | NUR ---
MD HAIRSTON NOTIFIED OF PT LOW URINE OUTPUT. NEW TELEPHONE ORDERS RECEIVED. VERIFIED WITH READ BACK METHOD.
--- NOTE | 2019-11-14 07:41 | NUR ---
0717: Report recieved from Tash CASTELLON. Pt resting in her bed with no complaints or needs at this time. Call robledo within reach.
--- NOTE | 2019-11-14 09:05 | NUR ---
PT SITTING UP IN BED EATING HER BREAKFAST AND SHE DENIES ANY PAIN AT THIS TIME. WALKING BOOT IN PLACE AND GOOD CAP REFILL AND PULSE NOTED. WHEN ASKED THE PT STATES HER COCCYX IS RED, I WAS UNABLE TO VIEW IT SHE IS EATING. WILL REASSESS LATER, SHE ALSO STATES SHE WILL TURN TO HER SIDE AFTER BK. TELE REMAIN IN THE 50'S AND IS SB. SEE ASSESSMENT. WILL CONTINUE TO MONITOR LOW URINE OUTPUT.
--- NOTE | 2019-11-14 10:23 | NUR ---
Pt repositioned to her left side. Coccyx slightly red with no breakdown. Teaching given in regards to pressure relief with understanding stated.
--- NOTE | 2019-11-14 10:37 | NUR ---
Pt sleeping at this time, tele SB in the 50's.
--- NOTE | 2019-11-14 11:59 | NUR ---
Pt denies any new problems at this time.
--- NOTE | 2019-11-14 13:04 | NUR ---
PT CONTINUES TO DENIE ANY PAIN AT THIS TIME. SHE IS EATING LUNCH AND WATCHING TV. PT DENIES ANY CHANGE IN FEELING IN HER RIGHT FOOT SHE HAS BASELINE NEUROPATHY IN HER FEET. CAP REFILL AND PULSES REMAIN GOOD. FOOT IS ELEVATED AND WALKING BOOT IS IN PLACE.
--- NOTE | 2019-11-14 14:00 | NUR ---
Pt working with physical therapy at this time.
--- NOTE | 2019-11-14 15:18 | NUR ---
Pt sleeping at this time, call robledo within reach.
--- NOTE | 2019-11-14 17:21 | NUR ---
Pt sitting up in her chair eating dinner.
--- NOTE | 2019-11-14 17:25 | NUR ---
PATIENT CALLED SONNY AND LEÓN WERE ALREADY IN HERE SO THEY HELPED HER TO THE BATHROOM. WHILE I CHANGED THE BED LINENS. AFTER SHE WAS FINISHED THEY HELPED HER TO THE CHAIR WHILE I SET UP HER DINNER. PATIENT IS NOW EATING HER DINNER IN HER CHAIR.
--- NOTE | 2019-11-14 19:41 | NUR ---
REPORT RECEIVED FROM DAY SHIFT RN. PT SITTING IN RECLINER, DROWSY BUT AWAKENS EASILY. IVF INFUSING. DENIES NEEDS. WHITE BOARD UPDATED. CALL LIGHT IN REACH.
--- NOTE | 2019-11-14 19:50 | NUR ---
PT UP TO BR WITH 2PA AND FWW TO VOID 100 ML YELLOW URINE. GAIT WEAK BUT STEADY. WALKING BOOT IN PLACE. BACK TO BED, PT VICK WELL. DENIES PAIN AT REST. NO FURTHER NEEDS. CALL LIGHT IN REACH.
--- NOTE | 2019-11-14 22:55 | NUR ---
EVENING ASSESSMENT COMPLETE. SCHEDULED MEDS ADMINISTERED PER EMAR. PT DENIES PAIN. RIGHT FOOT CMS INTACT. WALKING BOOT IN PLACE. TELE # 4 SINUS ADY. HR 50'S. IVF INFUSING. PT DENIES FURTHER NEEDS AT THIS TIME. CALL LIGHT IN REACH.
--- NOTE | 2019-11-14 23:16 | NUR ---
CALL LIGHT ANSWERED. PT UP TO BSC WITH 2PA AND FWW. BACK TO BED, VICK WELL. ASSISTED PT TO REPOSITION TO LEFT SIDE. FRESH WATER PROVIDED. CALL LIGHT IN REACH.
--- NOTE | 2019-11-15 00:58 | NUR ---
PT UP TO BSC WITH 2PA AND FWW. BACK TO BED, VICK WELL. DENIES PRN FOR PAIN. NEW BAG IVF INFUSING.
--- NOTE | 2019-11-15 02:33 | NUR ---
PT RESTING IN BED WITH EYES CLOSED, NAD.
--- NOTE | 2019-11-15 05:30 | NUR ---
PT SLEPT WELL. ALERT AND ORIENTED. USES NURSE CALL LIGHT. 60 GR CARB DIET, VICK WELL. RA. TELE #4, SINUS ADY. ECHO SCHEDULED 11/14. 2PA WITH FWW. FX RIGHT DISTAL FIBULA. WALKING BOOT IN PLACE. DENIES PAIN UNLESS AMBULATING, NO PRN GIVEN FOR PAIN. VOID QS. IVF.
--- NOTE | 2019-11-15 07:17 | NUR ---
REPORT RECEIVED. PT IN BED AWAKE. CALL LIGHT IN REACH. DENIES NEEDS.
--- NOTE | 2019-11-15 07:54 | NUR ---
2 PERSON ASSIST TO BSC FOR 400ML URINE THEN TO CHAIR FOR BREAKFAST. CALL LIGHT AND PERSONAL ITEMS WITHIN REACH.
--- NOTE | 2019-11-15 08:58 | NUR ---
IMAGING IN FOR ABDOMINAL X-RAY. ASSESSEMENT COMPLETED. PT WITH MULTIPLE BM'S. BOWEL TONES ACIVE. ABDOMEN SOFT AND NOT TENDER. REPORTING TROAT PAIN AT 5/10. PRN HYDROMORPHONE ADMINSITERED. MEDCATIONS GIVEN. LUNGS CLEAR, HEART SOUNDS WITH MURMUR. NO OUTPUT OVER NIGHT FROM NG TUBE, 10 ML FLUSHED. NO RETURN.
--- NOTE | 2019-11-15 09:43 | NUR ---
PATIENT IS UP IN CHAIR, EATING BREAKFAST
--- NOTE | 2019-11-15 10:03 | NUR ---
IMAGING IN FOR ECHO.
--- NOTE | 2019-11-15 11:02 | NUR ---
DR FLORES ROUNDING ON ROOM.
--- NOTE | 2019-11-15 11:06 | NUR ---
PT ALERT, ORIENTED AND SITTING IN CHAIR EATING BREAKFAST. PT IS TRYING TO KEEP HER SENSE OF HUMOR, AND IS WILLING TO CONTINUE TO VISIT ABOUT HER LIFE AND WHAT IS TO COME NEXT FOR HER. HAD PRAYER WILL CONTINUE TO FOLLOW
[2019-11-15] MEDS ORDERED: PACERONE200 MG PO (11:38)
--- NOTE | 2019-11-15 11:51 | NUR ---
PATIENT AWAKENED TO NAME. PATIENT STATES SHE IS PLANNING ON GOING HOME AT DISCHARGE. DISCUSSED WHAT THAT LOOKED LIKE NOW THAT SHE HAS THE BOOT, IS PAINFUL TO WALK AND NEEDS HELP. SHE STATES SHE CANNOT STAY WITH SON HE HAS MANY STAIRS, PLUS SIX KIDS. HER OTHER CHILD LIVES IN [place]. SHE STATES THE [facility] TOLD HER SHE WILL QUALIFY FOR IN-HOME HELP. DISCUSSED THAT I WILL CALL THEM AND FILL OUT THE [facility] TO REQUEST THIS. SHE STATES HER SON IS GOING TO COME AND BE AT THE HOUSE AND MAKE SURE SHE IS ALL SET UP. WE DISCUSSED NEEDING EQUIPMENT. SHE WANTS TO BORROW EQUIPMENT FROM [employer] (SHE GOT A SHOWER CHAIR THERE RECENTLY). SHE IS GOING TO CALL A FRIEND TO HELP HER WITH THIS. SHE WANTS TO MAKE SOME PHONE CALLS BEFORE MAKING DECISIONS. I SUGGESTED ASSISTED LIVING POSSIBLY, IN-HOME CARE, OR STAYING WITH RELATIVES OR FRIENDS. I WAS LEAVING PHARMACY CAME IN TO VISIT HER.
[2019-11-15] MEDS ORDERED: ELIQUIS5 MG PO (12:02)
--- NOTE | 2019-11-15 12:08 | NUR ---
PT ASSISTED TO BSC FOR 400ML URINE THEN TO CHAIR FOR LUNCH. DENIES PAIN.
--- NOTE | 2019-11-15 13:17 | NUR ---
SPOKE WITH PATIENT AND SON KATHY IN ROOM. PATIENT DOES HAVE WALKERS AT HOME. SHE STATES THEY WERE JUST THINKING THE SEATED WALKER IS THE ONE SHE NEEDS TO USE AT THIS TIME. KATHY STATES HE TOOK THE BATHROOM DOOR OFF SO SHE WONT HAVE TO DEAL WITH THAT. THEY STATE SHE WAS RECENTLY OKAYED FOR 10 HOURS A WEEK FOR [facility]. THEY ARE WONDERING IF SHE WOULD QUALIFY FOR MORE NOW THAT SHE HAS BROKE HER ANKLE. WE DISCUSSED GETTING A BSC AT [facility] TO USE AT NIGHT. HE IS GOING TO REARRANGE THE FURNITURE TO MAKE IT EASIER FOR HER TO MOVE AROUND. HE DOESN'T THINK THE DOORS ARE WIDE ENOUGH FOR A WHEELCHAIR. I WILL CALL [place] TO FIND OUT ABOUT THE CAREGIVER HOURS. CAME BACK TO ROOM AND LEFT A MESSAGE FOR CALLBACK WITH THE [place] [facility] OFFICE.
--- NOTE | 2019-11-15 13:53 | NUR ---
RECEIVED CALL FROM AIDE BAILEY [place]. SHE STATES PATIENT DID GET THE AUTHORIZATION FOR IN-HOME CARE. SHE WAS UNSURE WHY IT HADN'T STARTED YET. SHE WILL CALL [facility]PING [employer]. SHE STATES TO FAX CHART NOTES AND SHE WILL SEE ABOUT GETTING ASSESSMENT UPDATED DUE TO NEW INJURY FOR POSSIBLE EXTRA HOURS.
--- NOTE | 2019-11-15 14:20 | NUR ---
ORHTOSTATIC VITALS DONE. PT WITH LOW HR WHILE STAVNDING. REPROTING DIZZINESS WELL. DR FLORES NOTIFIED OF ORTHOSTATIC VITALS.
--- NOTE | 2019-11-15 15:34 | NUR ---
ASSESSMENT COMPLETED. INCENTIVE SPEROMETER EDUCATION AND DEMONSTRATION COMPLETED. PT CHANAENIS PAIN AND THIS TIME. CALL LIGHT IN REACH.
--- NOTE | 2019-11-15 18:00 | NUR ---
PT UP IN CHAIR EATING DINNER. CALL LIGHT IN REACH. DENIES NEEDS.
--- NOTE | 2019-11-15 18:29 | NUR ---
PT HAD GOOD DAY, PAIN WELL CONTROLLED WITH PRNS. UP TO CHAIR FOR MEALS. EATING WELL. VOIDING WELL AND QS. TELE #4 ON, SINUS ADY. ECHO COMPLETED. ALERT AND ORIENTED. BOOT TO RIGHT LEG. 1-2PA WITH FWW. DIZZINESS WITH AMBULATION, USE EXTRA CAUTION. IV WNL.
--- NOTE | 2019-11-15 19:12 | NUR ---
PATIENT WAS IN THE BATHROOM, PATIENT WAS A SBA WITH WALKER FROM THE BATHROOM TO THE BED, PATIENT WAS ABLE TO GET INTO BED WITH LITTLE ASSISTANCE FROM THIS SHIELD INSTALLER, PATIENT IS COMFORTABLE CALL LIGHT IN PLACE
--- NOTE | 2019-11-15 19:29 | NUR ---
REPORT RECEIVED FROM DAY SHIFT RN. PT LYING IN BED, ALERT AND ORIENTED. IVF INFUSING. REPORTS NO PAIN AT REST. DENIES NEEDS. WHITE BOARD UPDATED. CALL LIGHT IN REACH.
--- NOTE | 2019-11-15 21:58 | NUR ---
EVENING ASSESSMENT COMPLETE. SCHEDULED MED ADMINISTERED PER EMAR. PT DENIES PAIN. RIGHT LEG CMS INTACT. WALKING BOOT IN PLACE. TELE #4, SINUS ADY. HR 50'S. IVF INFUSING. PT DENIES FURTHER NEEDS. CALL LIGHT IN REACH.
--- NOTE | 2019-11-15 23:12 | NUR ---
2 PA TO THE BATHROOM USING WALKER. PATIENT IS BACK IN BED. CALL LIGHT IN REACH. ICE WATER REILLED. NO OTHER NEEDS AT THIS TIME.
--- NOTE | 2019-11-15 23:14 | NUR ---
CALL LIGHT ANSWERED. 2PA TO RESTROOM FOR VOID AND BACK TO BED WITH FWW. pt DENIES PAIN AT REST. STATES HAPPY WITH HER CARE "EVERYONE HERE HAS BEEN GREAT, I JUST WANT TO GO HOME". ASSISTED TO REPOSITION IN BED, CALL LIGHT IN REACH.
--- NOTE | 2019-11-16 01:30 | NUR ---
NEW BAG IVF HEYDI. PT C/O CHRONIC NECK AND SHOULDER PAIN. REFUSES PRN FOR PAIN OR HEAT/COLD APPLICATION. NO NEEDS AT THIS TIME. CALL LIGHT IN REACH.
--- NOTE | 2019-11-16 02:23 | NUR ---
CANDE MANUEL AND THIS RADIUS CORNER MACHINE OPERATOR HELPED PATIENT USE THE TOILET. PATIENT IS BACK IN BED. CALL LIGHT IN REACH.
--- NOTE | 2019-11-16 04:00 | NUR ---
PT RESTING IN BED WITH EYES CLOSED, LYING ON LEFT SIDE. RR EVEN AND UNLABORED. CALL LIGHT IN REACH.
--- NOTE | 2019-11-16 05:46 | NUR ---
PT SLEPT WELL. A&O X4. 2PA WITH FWW. WALKING BOOT TO RIGHT LEG. IVF. VOID QS. PRN NORCO X 1 FOR PAIN. TELE #4 SINUS ADY. NO C/O DIZZINESS OR BEING LIGHTHEADED WITH AMBULATION THIS SHIFT.
--- NOTE | 2019-11-16 06:29 | NUR ---
pt SLEEPING, AWAKENS TO VOICE. BP REASSESSED AFTER PAIN MEDICATION ADMINISTRATION, 138/81 (93). pt DENIES PAIN, APPRECIATIVE WITH CARES FROM CANDE SYED, AND NAA SUÁREZ. RESTING IN BED AWAKE, CALL LIGHT IN REACH. NO REQUESTS AT THIS TIME.
--- NOTE | 2019-11-16 07:22 | NUR ---
REPORT RECEIVED. PT IN BED. DENEIS PAIN. NS AT 125 INFUSING. CALL LIGHT IN REACH.
--- NOTE | 2019-11-16 07:43 | NUR ---
Medications reconciled using pharmacy records and patient interview.
--- NOTE | 2019-11-16 07:45 | NUR ---
LOW BLOOD SUGAR REPORTED BY HEALTH TECHNICIAN. APPLE JUICE GIVEN. BREAKFAT ORDERED.
--- NOTE | 2019-11-16 08:33 | NUR ---
THIS NURSE TO BEDSIDE. PT IN BED WITH INCREASED RESPIRATIONS, REPORTING SOME CONFUSSION. VITALS AND BLOOD SUGAR RECEHCKED. BLOOD SUGAR 82. PT DID NOT DRINK APLE JUICE. ENCOURAGED TO TAKE DOWN APPLE JUICE. BREAKFAST TO BEDSIDE. VITALS STABLE. PT WITH LOW HEART RATE. DR FLORES NOTIFIED. METOPROLOL HELDED.
--- NOTE | 2019-11-16 09:26 | NUR ---
DR SANDRA QUINONES IN ROOM.
--- NOTE | 2019-11-16 10:12 | NUR ---
PATIENT SITTING UP IN BED WATCHING TV. FRESH WATER GIVEN. CALL LIGHT IN REACH. NO FURTHER NEEDS AT THIS TIME.
--- NOTE | 2019-11-16 11:15 | NUR ---
PT SITTING UP IN BED, DENEIS NEEDS OR PAIN. [facility].
--- NOTE | 2019-11-16 11:45 | NUR ---
[facility].
--- NOTE | 2019-11-16 12:32 | NUR ---
PT ALERT, ORIENTED AND SITTING UP IN BED EATING B.FAST. PT SEEMED ALITTLE OUT OF SORTS-ADMITTED THAT SHE HAS HAD TROUBLE WITH HER BS THIS MORNING AND IS STILL TRYING TO GATHER HERSELF.PT STATED THAT SHE IS WILLING TO DO SOME THINGS TO HELP CONTROL HER BS, BUT NOT REALLY INVESTED IN IT COMPLETELY YET. WE THEN TALKED ABOUT HER FAMILY AND MAKE CHOICES FOR THEM, IF NOT FOR YOURSELF. SHE STATED HOW MUCH SHE LOVES HER FAMILY. PT SEEMS OPEN TO VISITING WITH KINESIOLOGY PROFESSOR CHRIS. SARANYA JOHNSON AND WILL FOLLOW UP
--- NOTE | 2019-11-16 12:35 | NUR ---
PT ASSISTED TO BATHROOM SB WITH FWW. TOLERATED WELL.
--- NOTE | 2019-11-16 12:51 | NUR ---
PATIENT TO CHAIR FROM BATHROOM, 1PA FWW. LINENS CHANGED. CALL LIGHT IN REACH. NO FURTHER NEEDS AT THIS TIME.
--- NOTE | 2019-11-16 13:29 | NUR ---
PHYSICAL THERAPY IN ROOM.
--- NOTE | 2019-11-16 14:00 | NUR ---
PT REFUSING PHYSICAL THERAPY D/T BEING "TIRED" AND HAVING FEELING OF "FALLING DOWN". REASSURED PT WE ARE TRAINED SO SHE WONT FALL. PT AGREED TO TAKE PAIN MED AND WORK WITH PT IN 1 HOUR.
--- NOTE | 2019-11-16 16:20 | NUR ---
PHYSICAL THERAPY BACK IN ROOM. PT PARTICIPATED WELL AFTER PAIN MEDICAITON.
--- NOTE | 2019-11-16 17:01 | NUR ---
PT REQUESTING TO SPEAK WITH DR SANDRA PRESLEYING PHYSICAL THERAPY.
[2019-11-16] MEDS ORDERED: TOPROL XL100 MG PO (17:21)
--- NOTE | 2019-11-16 18:44 | NUR ---
WORKED WITH PT. REFUSED TO GET OOB FOR MEAL.S VOIDING WELL. NO BM THIS SHIFT. SBA WITH FWW. FLUIDS INFUSING WNL.
--- NOTE | 2019-11-16 19:18 | NUR ---
REPORT RECEIVED FROM DAY SHIFT RN. PT LYING IN BED, ALERT AND ORIENTED EATING DINNER. DENIES NEEDS. NEW BAG IVF HUNG. WHITE BOARD UPDATED. CALL LIGHT IN REACH.
--- NOTE | 2019-11-16 21:50 | NUR ---
EVENING ASSESSMENT COMPLETE. SCHEDULED MEDS ADMINISTERED PER EMAR. PRN GIVEN FOR PAIN WITH MOVEMENT. UP TO BR WITH 2PA AND FWW. GAIT STEADY. NO DIZZINESS REPORTED. BACK TO BED, VICK WELL. IVF INFUSING. TELE #4 SINUS ADY, HR 50'S. EVENING SNACK PROVIDED. PT DENIES FURTHER NEEDS. CALL LIGHT IN REACH.
--- NOTE | 2019-11-16 22:19 | NUR ---
PEANUT BUTTER PROVIDED.
--- NOTE | 2019-11-17 01:35 | NUR ---
PT LYING ON LEFT SIDE WITH EYES CLOSED, NAD. RR EVEN AND NON-LABORED. TELE# 4, HR 54.
--- NOTE | 2019-11-17 03:48 | NUR ---
CALL LIGHT ANSWERED. PT UP TO BR WITH 2PA AND FWW. PT PARTICIPATION MUCH IMPROVED THIS TIME. BACK TO BED, VICK WELL. ASSESSMENT COMPLETE. WALKING BOOT ON RIGHT LEG. CMS INTACT. TELE#4 HR 50'S. PT DENIES FURTHER NEEDS. CALL LIGHT IN REACH.
--- NOTE | 2019-11-17 06:12 | NUR ---
PT SLEPT WELL. ALERT AND ORIENTED. USES NURSE CALL LIGHT APPROPRIATELY. 1-2PA WITH FWW. WALKING BOOT TO RIGHT LEG. TELE #4. IVF. VOID QS. PRN NORCO X1 FOR PAIN.
--- NOTE | 2019-11-17 07:32 | NUR ---
Pt sitting up in bed at this time, a&ox4. Pt on ra, resp even and non labored. Pt reports she is doing well this am. No needs at this time.
--- NOTE | 2019-11-17 08:01 | NUR ---
PATIENT RESTING IN BED. PATIENT GOES TO USE THE BATHROOM. PATIENT USES WALKER. ONE PERSON ASSISTING. LINENS CHANGED. HANDS AND FACE WASHED. PATIENT BACKS TO CHAIR. WARM BLANKET PROVIDED. CALL LIGHT WITHIN REACH. NO OTHER NEEDS AT THIS TIME
--- NOTE | 2019-11-17 08:03 | NUR ---
PT UP IN CHAIR FOR BREAKFAST. BLOOD SUGAR 68, BREAKFAST IN FRONT OF HER.
--- NOTE | 2019-11-17 08:44 | NUR ---
One tab [place] 5/325mg po admin for reports of 5/10 right leg pain.
--- NOTE | 2019-11-17 09:00 | NUR ---
Spoke with Lizet. She has talked with her sister, Kandy, who works at the [facility] [employer]. She would like to go there on dc. She called sister and we all spoke over speaker phone. She states there is a waiting list. Would like pt to go to [facility] the [facility] until she can get into the [place]. Pt is in agreement with this.
--- NOTE | 2019-11-17 09:50 | NUR ---
PATIENT SITTING UP IN CHAIR. OCCUPATIONAL THERAPIST IN ROOM. VITAL SIGNS AND I&O DONE. ICE WATER GIVEN. CALL LIGHT WITHIN REACH. NO OTHER NEEDS AT THIS TIME
--- NOTE | 2019-11-17 11:00 | NUR ---
Face sheet, progress notes, PT/OT notes and evals,medications faxed to [facility] to Aliyah. Kandy's phone [phone]. [facility] [phone] called and left message asking if they had bed space. Received return message from toña [facility]. They do not have bed space, there is a waiting list. Pt's sister will need to complete a packet for pt to get on the waiting list. Called [facility]. They do not accept VA pay. Checked with pt and she does have Medicare A. Card copied and faxed to [facility].
--- NOTE | 2019-11-17 11:47 | NUR ---
PT ASLEEP, WILL CHECK BACK
--- NOTE | 2019-11-17 13:44 | NUR ---
PATIENT SITTING UP IN BED. PATIENT USES THE BATHROOM, ONE PERSON ASSISTING WITH WALKER. PATIENT BACKS TO BED. VITAL SIGNS AND I&O DONE. CALL LIGHT WITHIN REACH. NO OTHER NEEDS AT THIS TIME
--- NOTE | 2019-11-17 14:30 | NUR ---
Pt doing well, a&ox4. Pt on ra, resp even and non labored. Pt reports pain is tolerable. Boot intact to RLL. No needs at this time.
--- NOTE | 2019-11-17 16:56 | NUR ---
PATIENT RESTING IN BED. VITAL SIGNS AND I&O DONE. CALL LIGHT WITHIN REACH. NO OTHER NEEDS AT THIS TIME
--- NOTE | 2019-11-17 18:35 | NUR ---
Dr. Ahuja aware pt has not yet voided. TORB to removed tele at this time.
--- NOTE | 2019-11-17 18:46 | NUR ---
CALL LIGHT ANSWERED. PATIENT USING THE BATHROOM. PATIENT BACKS TO BED. ONE PERSON ASSISTING WITH WALKER. CALL LIGHT WITHIN REACH. NO OTHER NEEDS AT THIS TIME
--- NOTE | 2019-11-17 20:55 | NUR ---
Pt coop with assessment, flat irritable affect. In room air. No c/o pain. Up to brp with 1PA/FWW, R leg walking boot in place. slow gait. SL patent. CBG 125, no coverage. received 25units Lantus. HS med teaching done. call light and fluids at bedside. Bed alarm on
--- NOTE | 2019-11-18 00:35 | NUR ---
RESTING, NO DISTRESS, ON ROOM AIR. CALL LIGHT AT BEDSIDE. R ORTHO BOOT IN PLAC
--- NOTE | 2019-11-18 01:23 | NUR ---
PATIENT CALLED STATED "CAN YOU POKE MY FINGER? THAT MIGHT BE MY PROBLEM". PATIENT MEANT CHECK HER BLOOD SUGAR. CHECKED IT IS 116. PRIMARY RN NOTIFIED. PATIENT ASKED FOR SNACK. ENSURE AND SUGAR FREE PUDDING PROVIDED.
--- NOTE | 2019-11-18 04:03 | NUR ---
UP TO BR WITH 1PA/FWW, MINIMUM OF ASSIST. r ORTHO BOOT IN PLACE, VOIDED AND HAD A MD SIZE HARD BM, BARRIER CREAM TO BUTTOCKS, BACK TO BED, TOLERATED WELL, NO ASSIST GETTING BACK TO BED. NO C/O PAIN, NO SOB NOTED. TOLERATING FLUIDS WELL, CALL LIGHT AT BEDSIDE, ON ROOM AIR
--- NOTE | 2019-11-18 05:14 | NUR ---
Slept off and on this shift. On room air, no c/o sob with exertion or CP. R leg with ortho boot in place, good cms, up with 1PA?FWW, tolerated well. no c/o pain this shift. turns self in bed. uses call light appropriately. liquids at bedside. CBG WNL. pt excited about going home today
--- NOTE | 2019-11-18 07:29 | NUR ---
0700: Report received from Nuvia. Pt sleeping at this time, call robledo within reach.
--- NOTE | 2019-11-18 08:00 | NUR ---
Called and spokew with Mariya. She did not recieve the chart I faxed and scanned. Rescanned and I will call in 1/2 hour to see if she received. She asks the last time pt was Covid tested as per their policy, they need a neg covid test within 72 hour of admission. She will speak with admin. to see if the they bypass this rule.
--- NOTE | 2019-11-18 08:11 | NUR ---
CBG 69 AND THE PT IS DRINKING SOME JUICE AND HER BREAKFAST HAS BEEN ORDERED, SHE NOW STATES HER BLOOD SUGAR IS FEELING FINE. PT DENIES ANY PAIN. WALKING BOOT IN PLACE, GOOD CIRCULATION, PULSE AND CAP REFILL. +1 RIGHT ANKLE AND FOOT EDEMA NOTED, FOOT ELEVATED. SEE ASSESSMENT.
--- NOTE | 2019-11-18 09:15 | NUR ---
Spoke with Lizet, sabrina I am awaiting a return call from [facility] for confirmation she can go there. She denies needs or complaints today.
--- NOTE | 2019-11-18 10:40 | NUR ---
Pt denies any problems at this time and was assisted to the br.
--- NOTE | 2019-11-18 11:26 | NUR ---
Dr Ahuja notified of need for second Covid test and test ordered.
--- NOTE | 2019-11-18 12:10 | NUR ---
Received a message from [facility], they have questions of where pt will dc to when dc from their care. Also were looking for secondary payor if she needs to stay longer than 20 days. I spoke with the [place] and they asked pt call her team and request assistance with LT placement. Pt is not service related so they will not pay for [facility]. They will check to see if pt qualifies for Catastrophic disablitiy due to her leg fx or aid and attendance with assistance for payment to an assisted living. Pt. requested to call the [place] and she states she will. Spoke with Dr. Ahuja and he feels pt could dc to home following 20 days of rehab with . She was on HH when she was admitted.
--- NOTE | 2019-11-18 12:55 | NUR ---
RT COLLECTED COVID 19 SWAB AND RAN TEST TO LAB.
--- NOTE | 2019-11-18 12:58 | NUR ---
PAguilar AND OT HAS JUST CARED FOR PT. SHE IS SITTING IN CHAIR AND ASKED IF I COULD VISIT LATER. WILL CHECK BACK
--- NOTE | 2019-11-18 13:29 | NUR ---
PT SITTING UP IN HER CHAIR EATING LUNCH AT THIS TIME. SHE DENIES ANY PAIN OR OTHER PROBLEMS. WALKING BOOT REMAINS IN PLACE, CAP REFILL AND PULSE TO THE RIGHT FOOT ARE GOOD. +1 EDEMA NOTED IN THE FOOT AND ANKLE WHICH IS UNCHANGED FROM THIS MORNING ASSESSMENT.
--- NOTE | 2019-11-18 16:18 | NUR ---
Called and left message x 3 for Mariya from [facility] asking if they have accepted this patient. Notified feels pt would be safe to dc to home following 20 days of rehab.
[2019-11-18] MEDS ORDERED: PACERONE200 MG PO (16:38)
[2019-11-18] MEDS ORDERED: TOPROL XL100 MG PO (16:39)
[2019-11-18] MEDS ORDERED: TYLENOL325 MG PO (16:40)
[2019-11-18] MEDS ORDERED: LASIX40 MG PO (16:41)
[2019-11-18] MEDS ORDERED: LANTUS100 UNITS/ SUB-Q (16:44)
[2019-11-18] MEDS ORDERED: NOVOLOG FL100 UNIT/1 SUB-Q (16:46)
--- NOTE | 2019-11-18 19:00 | NUR ---
RECEIVED REPORT FROM CANDE TRAORE. pt RESTING IN BED WITH EYES CLOSED, RESPIRATIONS REGULAR. SOUND EDITOR IN ROOM. WHITEBOARD UPDATED.
--- NOTE | 2019-11-18 21:01 | NUR ---
pt UP TO VOID, 1PA FWW WITH BOOT. pt ASKED IF SHE HAD EATEN DINNER, DENIED BEING HUNGRY. CHART SHOWS 100% OF DINNER CONSUMED. FRESH WATER PROVIDED. ASSESSMENT DONE. VITALS AND I&O RECORDED. MEDICATIONS GIVEN (SEE MAR). CALL LIGHT WITHIN REACH.
--- NOTE | 2019-11-18 21:15 | NUR ---
pts VS and I&Os complete, fresh ice water given, pt toileted. RN Swapna in room.
--- NOTE | 2019-11-18 23:14 | NUR ---
ROUNDED ON pt. RESTING WITH EYES CLOSED, RESPIRATIONS REGULAR AND UNLABORED. CALL LIGHT WITHIN REACH.
--- NOTE | 2019-11-19 01:15 | NUR ---
ROUNDED ON pt. RESTING WITH EYES CLOSED, RESPIRATIONS REGULAR AND UNLABORED. CALL LIGHT WITHIN REACH.
--- NOTE | 2019-11-19 03:31 | NUR ---
ROUNDED ON pt. RESTING WITH EYES CLOSED, RESPRIATIONS REGULAR AND UNLABORED. CALL LIGHT WITHIN REACH.
--- NOTE | 2019-11-19 04:32 | NUR ---
CALL LIGHT ON. pt UP TO VOID, 1PA FWW WITH BOOT ON. CALL LIGHT WITHIN REACH WILL CALL WHEN DONE.
--- NOTE | 2019-11-19 05:10 | NUR ---
pt IN BED. VITALS AND I&O RECORDED. ASSESSMENT DONE. NO REQUESTS AT THIS TIME. CALL LIGHT WITHIN REACH.
--- NOTE | 2019-11-19 05:18 | NUR ---
pt REPORTED NOT SLEEPING WELL LAST NIGHT. 1PA FWW WITH BOOT ON RIGHT FOOT. IV SL. TOLERATING 60G CARB DIET. HAS DENIED PAIN. USES CALL LIGHT APPROPRIATELY.
--- NOTE | 2019-11-19 07:19 | NUR ---
0707: Report received from Swapna Villafuerte. Pt slept well and has no complaints at this time. Call robledo within reach.
--- NOTE | 2019-11-19 08:39 | NUR ---
PT DENIES ANY NEW PROBLEMS. SHE DOES STATE THAT HER COCCYX AREA IS SORE BUT DECLINED TO ALLOW ME TO ASSESS THE AREA AT THIS TIME SHE JUST RECEIVED HER BREAKFAST. WILL ASSESS AFTER SHE IS DONE EATING. HER RIGHT FOOT/ANKLE CONTINUES TO HAVE +1 EDEMA AND IS ELEVATED. CAP REFILL AND CIRCULATION REMAIN GOOD AND THE WALKING BOOT REMAINS IN PLACE. SEE ASSESSMENT.
--- NOTE | 2019-11-19 09:00 | NUR ---
Received message from Mariya Coulter at the [place] [facility]. They are declining this pt as she does not have a secondary payor source. Chart faxed to [facility] in [place] as I was able to contact them today and speak with Carolyn. She requests chart for review. Chart also faxed to [facility] in [place].
--- NOTE | 2019-11-19 09:15 | NUR ---
Spoke with Lizet and sabrina [facility] at the [facility] declined her. She is in agreement for chart to be sent to [facility]. Let her know her sister had also requested [facility] and I was unable to contact yesterday. I was able to speak with Carolyn today and she requested a chart. Again discussed she is not service related and the [place] will not pay for her to go to the [facility] [place]. At this point we are looking for at least 20 days rehab and then a dc to home with HH. Understanding stated. I attempted to call her sister, Kandy. The call went straight to voice mail, she works nights. I left a detailed message of where we are with placement.
--- NOTE | 2019-11-19 10:35 | NUR ---
Pt's coccyx area checked and there is some slight redness and a blister noted without any open area. The area was cleaned and covered with barrier cream.
--- NOTE | 2019-11-19 10:39 | NUR ---
Received call from Cammie at [facility] She is reviewing the chart now and she will let me know if they can take this patient.
--- NOTE | 2019-11-19 11:00 | NUR ---
Received message from [facility]. They are full and cannot accept this pt.
--- NOTE | 2019-11-19 11:45 | NUR ---
Pt accepted by [facility]. Orders faxed to [facility] for review. They request clarification of sliding scale and to change Insulin to [place]. Dr. Ahuja notified and completed. Orders faxed and notified they are ready for the pt. Updated she is eating lunch and we will send by taxi when ready. Per PT pt is walking well and will tolerate taxi ride. In and spoke with pt as Rn stated pt feels as if she is being pushed out. In and again discussed with pt. She is still wanting to go the [facility] home in [place]. Again discussed the [place] will not pay for her to stay there. She is not service connected and she does not have this benefit. Reminded I called and spoke with the [facility] yesterday. There may be benefits available to her, but she must call the her at the [place] and request if she qualifies for Aid and attendance or catastrophic disability. Reminded I spoke with the VA and they have an OUTREACH COUNSELOR working on this, but Lizet must request the benefits, I am not allowed to do so for her per the VA. She wrote down the information and will call her pcp. She wanted to know if I had updated her sister, I let her know I left a message on her phone as it went to voice mail. Pt does state understanding she needs some assistance until she can get things set up with the VA. We also discussed, the [place] has approved for 10 hours of CG service, she will need to find a cg to help her in her home.
--- NOTE | 2019-11-19 12:33 | NUR ---
ENTERED PTS' RM, NAA BAUER IN CHARTING. PT LOOKING AT MENU, IMMEDIATELY COULD TELL PT WAS A LITTLE ON EDGE. SHE PROCEDED TO TELL ME THAT SHE WAS TOLD SHE WAS "LEAVING" TODAY AND DOESN'T KNOW WHERE. [facility] [place], AND SEEMS SOME CONFUSION REGARDING HER SERVICE. GAVE ASSURANCE TO PT THAT WE WILL NOT JUST KICK HER OUT, BUT WILL DC HER WITH A PLAN IN PLACE. PHOTOGRAPHER PORTRAIT SEVERINO INFORMED ME PT IS GOING TO [facility]. PT REQUESTED PRAYER, GAVE ENCOURAGEMENT TO PT.
--- NOTE | 2019-11-19 13:26 | NUR ---
I ASKED PATIENT IF SHE WOULD LIKE TO WASH HER FACE AND BRUSH HER TEETH AND SHE TOLD ME SHE WAS FINE. SHE DID COMB HER HAIR. AND I HELPED HER GET DRESSED BEFORE HER LUNCH GOT HERE.
--- NOTE | 2019-11-19 13:31 | NUR ---
Report was called Kayla CASTELLON at [facility] at this time.
--- NOTE | 2019-11-19 13:34 | NUR ---
Pt continues eating her lunch at this time with no complaints.
--- NOTE | 2019-11-19 14:20 | NUR ---
1420: PT DC'D TO [place] [facility]IA [facility] AT THIS TIME.
--- NOTE | 2019-11-19 14:55 | NUR ---
Notified [facility] and [facility] of pt's admit to SNF.
--- NOTE | 2019-11-19 15:02 | NUR ---
[facility] and [facility] 10 hrs of cg [facility] and they are working on Aid and Attendance so pt may be able to get assistance for payment to an Assisted Living.
== END 2019-11-19 14:20 | disposition home or self-care (01) ==
LOC: ED 15:08 → MS 15:11
PROVIDERS: ADMIT Internal Medicine
DX: S82.831A Other fracture of upper and lower end of right fibula, initial encounter for closed fracture (principal); N17.9 Acute kidney failure, unspecified; E86.0 Dehydration; I12.9 Hypertensive chronic kidney disease with stage 1 through stage 4 chronic kidney disease, or unspecified chronic kidney disease; E11.22 Type 2 diabetes mellitus with diabetic chronic kidney disease; N18.3 Chronic kidney disease, stage 3 (moderate); I48.0 Paroxysmal atrial fibrillation; I48.20 Chronic atrial fibrillation, unspecified; G25.81 Restless legs syndrome; F17.200 Nicotine dependence, unspecified, uncomplicated; Z88.2 Allergy status to sulfonamides; Z88.1 Allergy status to other antibiotic agents; Z88.8 Allergy status to other drugs, medicaments and biological substances; Z79.899 Other long term (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; Z79.01 Long term (current) use of anticoagulants; Z79.4 Long term (current) use of insulin; W18.30XA Fall on same level, unspecified, initial encounter; Y92.002 Bathroom of unspecified non-institutional (private) residence as the place of occurrence of the external cause
CPT/HCPCS: 36415; 70450; 73560; 73610; 80048; 80053; 81001; 83735; 84484; 85025; 93005; 93010; 93306; 96360; 96361; 97110; 97112; 97116; 97163; 97165; 97530; 99285-25; C9803; G0378; J1815; J7030; U0002

== ENCOUNTER 2019-11-25 15:56 | Emergency (ER) | payer OTHER ==
[~2019-11-25] VITALS: Ht 165.1 cm; Wt 81.7 kg
--- OUTSIDE RECORDS SUMMARY | ~2019-11-25 | XMS | Encounter Summary ---
Demographics + + + | Address | [address] | | | [place] [address] | + + + | Home Phone | | + + + | Preferred Language | Unknown | + + + | Marital Status | Unknown | + + + | Confucianist Affiliation | Unknown | + + + | Race | Unknown | + + + | Ethnic Group | Unknown | + + + Author + + + | Author | [facility] | | | and [place] | + + + | Organization | [facility] | | | and [...] Team Providers + +------+ + | Care Adult Services Librarian Name | Role | Phone | + +------+ + | Lizet Oliva | PCP | | + +------+ + Reason for Visit +--------+--------+ + | Reason | Onset | Comments | | | Date | | +--------+--------+ + | Other | 08/03/ | RBC ua result | | | 2020 | | +--------+--------+ + Encounter Details +--------+ + + + + | Date | Type | Department | Care Team | Description | +--------+ + + + + | 08/03/ | Telephone | [facility] | Matty Bingham MD | Other (RBC ua | | 2020 | | NEPHROLOGY [place] | [address] [place] | result) | | | | [address] | [address] [facility] [place] | | | | | [address] [place] [address] | [address] | | | | | [place], [place] | | | | | | [address] | | | | | | [phone] | | | +--------+ + + + [...] | | | + +---+---+---+ + + + | Sex Assigned at | Date Recorded | | | | + + + | Not on file | | + + + documented as of this encounter Miscellaneous Notes Telephone Encounter - Gabbi Cordova Patient Services Coordinator - 08/04/2019 5:39 [address] reports that there were 30 rbc in patients urinalysis will inform Otilia of this. Lab wi ll be faxing new report.Electronically signed by Naomi Beyer at 5:56 PM PDTTelephone Encounter - Gabbi Cordova Medical Assistant - 08/04/19 20 5:39 PM PDT----- Message from Teressa Loza sent at 07/29/2019 8:42 AM PST ----- Regarding: Otilia- ammenglenna lab Provider: Otilia Velasco Client Services called states they needed to give a verbal on a amended Urine tiny t results. Please call them back at [phone], you may speak to any of the client services specialis t to get the updated information. Next OV: [facility] SEMICONDUCTOR BONDER Consult do cumented in this encounter Plan of Treatment Not on filedocumented as of this encounter Visit Diagnoses Not on filedocumented in this encounter"
--- OUTSIDE RECORDS SUMMARY | ~2019-11-25 | XMS | Encounter Summary ---
Demographics + + + | Address | [address] | | | [place] [phone] | + + + | Home Phone | | + + + | Preferred Language | Unknown | + + + | Marital Status | Unknown | + + + | Roman Catholic Affiliation | Unknown | + + + | Race | Unknown | + + + | Ethnic Group | Unknown | + + + Author + + + | Author | [facility] | | | and [place] | + + + | Organization | [facility] | | | [...] Team Providers + +------+ + | Care Gerontological Nurse Practitioner Name | Role | Phone | + +------+ + PCP | Unavailable | + +------+ + Encounter Details +--------+ + + + + | Date | Type | Department | Care Team | Description | +--------+ + + + + | 10/25/ | Hospital | [facility] | Conversion | | | 2010 | Encounter | CONVERSION | Transaction, | | | | | DEPARTMENT [address] | Provider Unknown | | | | [address] | | | | | | [place], [place] | (Fax) | | | | | [address] | | | | | | [phone] | | | +--------+ + + + [...]
--- OUTSIDE RECORDS SUMMARY | ~2019-11-25 | XMS | Encounter Summary ---
Demographics + + + | Address | [address] | | | [place] [phone] | + + + | Home Phone | | + + + | Preferred Language | Unknown | + + + | Marital Status | Unknown | + + + | Sabianist Affiliation | Unknown | + + + | Race | Unknown | + + + | Ethnic Group | Unknown | + + + Author + + + | Author | [facility] | | | and [place] | + + + | Organization | [facility] | | | [...] Team Providers + +------+ + | Care Farm Laborer Name | Role | Phone | + +------+ + | Lizet Oliva | PCP | | + +------+ + Reason for Visit +--------+--------+ + | Reason | Onset | Comments | | | Date | | +--------+--------+ + | Other | 11/03/ | records sent - [facility] | | | 2020 | | +--------+--------+ + Encounter Details +--------+ + + + + | Date | Type | Department | Care Team | Description | +--------+ + + + + | 11/03/ | Telephone | [facility] | Graham Black | Other (records sent | | 2019 | | [address] | MD [address] | - [facility]) | | | | [place], | [address] [place] | | | | | [place] [address] | [place] [address] | | | | | [phone] | [phone] | | | | | | | [...] along with script for Tamiko faxed to [facility] at [phone] .......... .................................Betzaida Arenas RN, on 11/04/19 at 10:20 AM documented in this encounter Plan of Treatment Not on filedocumented as of this encounter Visit Diagnoses Not on filedocumented in this encounter"
--- OUTSIDE RECORDS SUMMARY | ~2019-11-25 | XMS | Encounter Summary ---
Demographics + + + | Address | [address] | | | [place] [address] | + + + | Home Phone | | + + + | Preferred Language | Unknown | + + + | Marital Status | Unknown | + + + | Mosque Affiliation | Unknown | + + + | Race | Unknown | + + + | Ethnic Group | Unknown | + + + Author + + + | Author | [facility] | | | and [place] | + + + | Organization | [facility] | | | [...] Team Providers + +------+ + | Care Brick Burner Name | Role | Phone | + +------+ + | Lizet Oliva | PCP | | + +------+ + Encounter Details +--------+ + + + + | Date | Type | Department | Care Team | Description | +--------+ + + + + | 08/02/ | Orders Only | [facility] | Matty Bingham MD | Essential | | 2020 | | NEPHROLOGY [place] | [address] [place] | hypertension | | | | [address] | [address] [place], [place] | (Primary Dx); CKD | | | | [address] [place] [address] | [id number] | (chronic kidney | | | | [place], [place] | | disease) stage 4, | | | | [address] | | GFR 15-29 ml/min | | | | [phone] | | (HCC); Nephrotic | | | [...] as of this encounter Plan of Treatment + +---------+--------+ + + | Name | [...] ml/min | | | | | | ([facility]) Nephrotic | | | | | | [...] ml/min | | | | | | ([facility]) Nephrotic | | | | | | [...] ml/min | | | | | | ([facility]) Nephrotic | | | | | | [...] ml/min | | | | | | ([facility]) Nephrotic | | | | | | [...] ml/min | | | | | | ([facility]) Nephrotic | | | | | | [...]
--- OUTSIDE RECORDS SUMMARY | ~2019-11-25 | XMS | Encounter Summary ---
Demographics + + + | Address | [address] | | | [place] [address] | + + + | Home Phone | | + + + | Preferred Language | Unknown | + + + | Marital Status | Unknown | + + + | Advent Affiliation | Unknown | + + + | Race | Unknown | + + + | Ethnic Group | Unknown | + + + Author + + + | Author | [facility] | | | and [place] | + + + | Organization | [facility] | | [...] Team Providers + +------+ + | Care Lorry Weigher Name | Role | Phone | + +------+ + | Lizet Oliva | PCP | | + +------+ + Reason for Referral Diagnostic/Screening (Emergency) +--------+--------+ + + + + | Status | Reason | Specialty | Diagnoses / | Referred By | Referred To | | | | | Procedures | Contact | Contact | +--------+--------+ + + + + | Closed | | Radiology | Diagnoses | Max[place], | [address] | | | | | Fall, | Graham | [address] | | | | | initial | MD Anup | [place], | | | | | encounter | [address] | [place] [address] | | | | | Nonintractab | [place] | Phone: | | | | | le headache, | [place], [place] | [phone] | | | | | unspecified | [address] | Fax: | | | | | chronicity | Phone: | [phone] | | | | | pattern, | [phone] | | | | | | unspecified | Fax: | | | | | | headache | [phone] | | | | | | type | | | | | | | Procedures | | | | | | | CT Head wo | | | | | | | Contrast | | | +--------+--------+ + + + + Reason for Visit + + + | Reason | Comments | + + + | New Patient | | + + + Evaluate & Treat (Routine) +--------+--------+ + + + + | Status | Reason | Specialty | Diagnoses / | Referred By | Referred To | | | | | Procedures | Contact | Contact | +--------+--------+ + + + + | Closed | | Cardiology | Diagnoses | Oliva, | [facility] | | | | | A-ky ([facility]) | Lizet White, | Cardiology | | | | | Procedures | 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 [address] | [address] | | | | | 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 | [employer] | Dannie Pand[place], | | | | | | [address] [place] | [place] | | | | | | [place] | [address] | | | | | | [address] | Phone: | | | | | | Phone: | [phone] | | | | | | [phone] | Fax: | | | | | | Fax: | [phone] | | | | | | [phone] | | +--------+--------+ + + + + Encounter Details +--------+---------+ + + + | Date | Type | Department | Care Team | Description | +--------+---------+ + + + | 11/01/ | Office | [facility] | Graham Black | Atrial fibrillation | | 2020 | Visit | CARDIOLOGY [address] | MD Anup [address] | with RVR (HCC) | | | | [address] [place], | [address] [place] | (Primary Dx); Acute | | | | [place] [address] | [place] [address] | heart failure with | | | | [phone] | [phone] | preserved ejection | | | | | | fraction (HCC); | | | | | | Essential [...] | | | | | disorder | +--------+---------+ + + + Social History [...] + + + | Blood Pressure | 130/64 | 11/02/2019 1:55 PM | | | | | PDT | | + + + + + | Pulse | 55 | 11/02/2019 1:55 PM | | | | | PDT | | + + + + + | Temperature | - | - | | + + + + + | Respiratory Rate | 18 | 11/02/2019 1:55 PM | | | | | PDT | | + + + + + | Oxygen Saturation | - | - | | + + + + + | Inhaled Oxygen | - | - | | | Concentration | | | | + + + + + | Weight | 75.6 kg (166 lb 10.7 | 11/02/2019 1:55 PM | | | | oz) | PDT | | + + + + + | Height | 167.6 cm (5' 6") | 11/02/2019 1:55 PM | | | | | PDT | | + + + + + | Body Mass Index | 26.9 | 11/02/2019 1:55 PM | | | | | PDT | | + + + + + documented in this encounter Patient Instructions Patient Instructions Betzaida Hodgson RN - 11/02/2019 2:00 PM PDT Decrease Amiodarone to 200mg one time daily Stop Warfarin Start xarelto 20mg - take one tablet by mouth one time daily with the evening meal Echo: Date: Check-In Time: Where to Check In: Follow up appointment: 2 weeks Provider: Denia Nicole PA-C Date: Check-In Time: documented in this encounter Progress Notes Graham Black MD - 11/02/2019 2:00 PM PDTFormatting of this note might be differe nt from the original. PATIENT NAME: Lizet Mcneil : 1950: AGE: 69 y.o. REFERRED BY: JOEL Lilly PRIMARY CARE: JOEL Salvador CARDIOLOGY OFFICE VISIT Date of Service: 11/02/19 HISTORY OF PRESENT ILLNESS: Lizet Mcneil is a 69 y.o. female with a history of paroxysmal atrial fibrillation, H FpEF, chronic diastolic dysfunction, diabetes mellitus with diabetic nephropathy and long-te rm current use of insulin, essential hypertension, CKD stage IV, and ongoing tobacco use. S he is being seen today for further consultation. She presents with her son Kenan. She is referred by JOEL Lilly for further evaluation given recent hospitalizat ion for paroxysmal atrial fibrillation with rapid ventricular rate and acute on chronic bonilla tolic heart failure with preserved ejection fraction. Patient was discharged on regimen of metoprolol and warfarin after having been in sinus rhythm for at least 24 hours. According to the patient, subsequent to discharge, she was reevaluated after suffering relapse of atri al fibrillation and instability/fall. At that time, she was taken off of warfarin therapy a nd was started on amiodarone therapy at 400 mg BID, with recommendations to discuss further during today's appointment. She states that she has not fallen since that time, 8 days ago, but has had worsening heada ches. She denies any focal neurologic symptoms. She denies any palpitations or recurrence of lightheadedness. MEDICAL, SURGICAL, AND PERSONAL HISTORY Past Medical History: Diagnosis Date CKD (chronic kidney disease) stage 4, GFR 15-29 ml/min ([facility]) 07/28/2019 Diabetes mellitus ([facility]) 07/28/2019 Hypertension 07/28/2019 Nicotine dependence 07/28/2019 History reviewed. No pertinent surgical history. History reviewed. No pertinent family history. No family status information on file. Social History Socioeconomic History Marital status: Unknown Spouse name: Not on file Number of children: Not on file Years of education: Not on file Highest education level: Not on file Tobacco Use Smoking status: Current Every Day Smoker Packs/day: 0.50 Types: Cigars Smokeless tobacco: Never Used Substance and Sexual Activity Alcohol use: Never Frequency: Never Drug use: Never CURRENT MEDICATIONS Current Outpatient Medications Medication Sig Dispense Refill albuterol 5 mg/mL nebulizer solution Take 2.5 mg by nebulization every 6 hours as neede d. albuterol 90 mcg/puff inhaler Inhale 2 puffs into the lungs 4 times daily as needed for Wheezing or Shortness of Breath. amiodarone (PACERONE) 400 MG tablet Take 400 mg by mouth Daily. betamethasone dipropionate 0.05% cream [...] Units under t he skin every evening. 3 mL 0 liraglutide (VICTOZA) 18 mg/3 mL injection Inject 1.8 mg under the skin Daily. metoprolol succinate (TOPROL-XL) 100 mg ER tablet TAKE 1 TABLET BY MOUTH ONCE DAILY FOR ARTIAL FIBRILATION. PLEASE CONTACT PCP FOR FURTHER REFILLS Multiple Vitamins-Minerals (MULTIVITAL PO) Take by mouth. pramipexole (MIRAPEX) 0.125 MG tablet Take 1 tablet by mouth Daily for 30 days. 30 tabl et 0 rosuvastatin (CRESTOR) 20 mg tablet Take 20 mg by mouth nightly. SPIRULINA PO Take by mouth. warfarin (COUMADIN) 5 mg tablet Take 1 tablet by mouth every evening. (Patient not sanjeev carrera: Reported on 11/02/2019) 7 tablet 0 No current facility-administered medications for this visit. ALLERGIES Allergies Allergen Reactions Baclofen Other (See Comments) Unspecified reaction Ciprofloxacin Other (See Comments) Unspecified reaction Sulfa Antibiotics Other (See Comments) Unspecified reaction ROS I have reviewed the Review of Systems form dated today and scanned into the media tab. OBJECTIVE: PHYSICAL EXAM BP 130/64 | Pulse (!) 48 | Resp 18 | Ht 1.676 m (5' 6") | Wt 75.6 kg (166 lb 10.7 oz) | BMI 26.90 kg/m Physical Exam Constitutional: She is oriented to person, place, and time. She appears well-developed and well-nourished. HENT: Head: Normocephalic. Eyes: No scleral icterus. Neck: Normal carotid pulses and no JVD present. Carotid bruit is not present. Cardiovascular: Regular rhythm, S1 normal, S2 normal, normal heart sounds, intact distal pu lses and normal pulses. Bradycardia present. PMI is not displaced. Exam reveals no gallop an d no midsystolic click. No murmur heard. Pulses: Carotid pulses are 2+ on the right side and 2+ on the left side. Radial pulses are 2+ on the right side and 2+ on the left side. Pulmonary/Chest: Effort normal and breath sounds normal. No accessory muscle usage. No resp iratory distress. She has no wheezes. She has no rhonchi. She has no rales. Abdominal: Soft. Normal aorta and bowel sounds are normal. She exhibits no abdominal bruit. There is no hepatosplenomegaly. There is no abdominal tenderness. Musculoskeletal: General: No edema. Neurological: She is alert and oriented to person, place, and time. Gait normal. Skin: Skin is warm and dry. No cyanosis. Nails show no clubbing. Psychiatric: She has a normal mood and affect. Her mood appears not anxious. She does not e xhibit a depressed mood. Vitals reviewed. ECG: Reviewed by me today notable for sinus bradycardia, heart rate 49, otherwise normal EC G. ECG 10/05/2019 notable for atrial fibrillation, heart rate 101, inferior and lateral T wave abnormalities. LAB RESULTS: LIPID No results found for: CHOL, TRIG, HDL, LDL, CHOLHDL, LDLEX, HDLEX, TRIGEX, CHOLEX CHEMISTRY Lab Results Component Value Date GLU 98 10/07/2019 NA 141 10/07/2019 K 4.2 10/07/2019 CL 111 (H) 10/07/2019 CO2 31 10/07/2019 CALCIUM 9.9 10/07/2019 AST 11 (A) 04/29/2019 ALT 15 04/29/2019 CREA 2.68 (H) 10/07/2019 BUN 47 (H) 10/07/2019 EGFR 23.0 (A) 07/28/2019 HEMATOLOGY Lab Results Component Value Date WBC 6.3 10/07/2019 HGB 10.9 (L) 10/07/2019 HCT 32.9 (L) 10/07/2019 PLT 241 10/07/2019 I reviewed records from [facility] for hospitalization,including H& P, Discharge Summary and lab reports on 10/07/2019. Cardiovascular diagnostic testing reviewed by me with the patient today: Echocardiogram September 2019 shows left ventricle is normal in size and function. Ejection fract ion is estimated at 60-65%. Grade 2 diastolic dysfunction. Mildly thickened mitral valve wit h mild annular calcification and mild regurgitation. Moderate to severe left atrial enlargem ent. ASSESSMENT: 1. Paroxysmal atrial fibrillation - patient presents in sinus bradycardia today, approxima tely 1 week after having been started on amiodarone therapy, presumably with a loading phong col. I have asked her to down titrate amiodarone to 200 mg daily and she may benefit from f urther down titration depending on her heart rate response. She may benefit from future amb ulatory monitoring. She would benefit from anticoagulation in the long run, barring a significant persistence o f instability and falls. Given recent discontinuation of warfarin, she would benefit from e mpiric therapy with a NOAC - Xarelto. We will see her in follow-up in the near future. Depending on her heart rate response foll owing down titration of amiodarone, she may benefit from further modification of her metopro lol regimen as well. This had been uptitrated since her hospital discharge. 2. HFpEF - patient appears euvolemic today but in the past has demonstrated propensity for fluid overload in the context of tachyarrhythmia. For now we will continue her current med ical regimen. 3. Headaches - patient states that she already underwent 1 CT imaging of her head followin g her initial fall but has continued to have headaches. I will refer her to the emergency d [facility] for urgent repeat CT imaging today, especially to rule out development of a subdur al hematoma. 4. Tobacco cessation - this was discussed with the patient at length today (> 5 minutes) a nd will benefit from future reinforcement. PLAN: 1. CT imaging of head. 2. Down titrate amiodarone dosing. 3. Additional therapy with Xarelto. 4. Fall prevention reemphasized. 5. Tobacco cessation. 6. Follow-up visit in a few weeks to reassess heart rate response. Consider down titratio n of metoprolol at that time. Total time of approximately 60 minutes was spent with the patient and/or patient's family, and/or on the patient's floor/unit, of which more than 50% was spent counseling and/or coord ination the patient's care related to history of heart failure, atrial fibrillation, falls, headache, and suggestions for further work-up and management. I, Graham Black MD, PhD, [facility] personally performed the services described in this documentation. All medical record entries made by the clinical integrated logistics support manager were at my [facility] ection. I have reviewed the documentation and discharge instructions (if appropriate), and edited the documentation if necessary. I agree that the record reflects my personal performa nce and is accurate and complete for visit date 11/02/2019. Portions of this report were transcribed using voice recognition software. Every effort wa s made to ensure accuracy; however, inadvertent computerized practicing dermatologist errors may be pre sent. Electronically signed by: Mary Black MD PhD [facility] 11/02/2019 documented in t his encounter Miscellaneous Notes Addendum Note - Betzaida Hodgson RN - 11/02/2019 2:00 PM PDT Addended by: BETZAIDA HODGSON on: 11/04/2019 09:48 AM Modules accepted: Orders documented in this encounter Plan of Treatment + +---------+--------+ + + | Name | Type | Priori | Associated Diagnoses | Order Schedule | | | | ty | | | + +---------+--------+ + + | CT Head wo Contrast | Imaging | STAT | Fall, initial | Expected: | | | | | encounter | 11/02/2019, Expires: | | | | | Nonintractable | 11/01/2020 | | | | | headache, | | | | | | unspecified | | | | | | chronicity pattern, | | | | | | unspecified headache | | | | | | type | | + +---------+--------+ + + documented [...] | | | | | | RVR ([facility]) | | + +--------+ + + + documented in this encounter Results ECG 12 lead (11/02/2019 2:20 PM PDT) + + + + + [...] MD | | | | | | ([id number]) on 11/04/2019 | | | | | [...] + | Diagnosis | + + | Atrial fibrillation with RVR (HCC) - Primary Atrial fibrillation | + + | Acute heart failure with preserved ejection fraction (HCC) | + + | Essential hypertension Unspecified essential hypertension | + + | Tobacco abuse Tobacco use disorder | + + | Fall, initial encounter | + + | Nonintractable headache, unspecified chronicity pattern, unspecified headache type | + + | Tobacco use disorder | + + documented in this encounter
--- OUTSIDE RECORDS SUMMARY | ~2019-11-25 | XMS | Encounter Summary ---
Demographics + + + | Address | [address] | | | [place] [address] | + + + | Home Phone | | + + + | Preferred Language | Unknown | + + + | Marital Status | Unknown | + + + | Voodoo Affiliation | Unknown | + + + | Race | Unknown | + + + | Ethnic Group | Unknown | + + + Author + + + | Author | [facility] | | | and [place] | + + + | Organization | [facility] | | | [...] Team Providers + +------+ + | Care Heavy Machinery Assembler Name | Role | Phone | + +------+ + PCP | Unavailable | + +------+ + Encounter Details +--------+ + + + + | Date | Type | Department | Care Team | Description | +--------+ + + + + | 08/11/ | Hospital | [facility] | Aníbal Self | | | 2011 | Encounter | H[facility] EM[facility]Y | MD [address] | | | | | [place] [address] [place] | [place], [place] | | | | | [address] | [address] | | | | | [phone] | [phone] | | | | | | | [...]
--- OUTSIDE RECORDS SUMMARY | ~2019-11-25 | XMS | Encounter Summary ---
Demographics + + + | Address | [address] | | | [place] [address] | + + + | Home Phone [...] Team Providers + +------+ + | Care Networking Administrator Name | Role | Phone | + +------+ + | Lizet Oliva | PCP | | + +------+ + Reason for Visit Auth/Cert +--------+--------+ + + + + | Status | Reason | Specialty | Diagnoses / | Referred By | Referred To | | | | | Procedures | Contact | Contact | +--------+--------+ + + + + | | | | Diagnoses | | | | | | | Afib | | | +--------+--------+ + + + + Encounter Details +--------+ + + + + | Date | Type | Department | Care Team | Description | +--------+ + + + + | 10/04/ | Hospital | [facility] | Paulo Ayers MD | Paroxysmal atrial | | 2019 - | Encounter | [facility] | [address] | fibrillation ([facility]); | | | | [address] [place] | [place] | Atrial fibrillation | | 10/06/ | | [place] [address] | [id number] | with RVR ([facility]); | | 2019 | | [phone] | | Acute heart failure | | | | | | with preserved | | | | | | ejection fraction | | | | | | ([facility]); CKD (chronic | | | | | | kidney disease) | | | | | | stage 4, GFR 15-29 | | | | | | ml/min ([facility]); | | | | | | Tobacco abuse | +--------+ + + + + Social [...] + + documented in this encounter Discharge Summaries Travis Copeland MD - 10/07/2019 1:25 PM PDTFormatting of this note might be different f rom the original. DISCHARGE SUMMARY Patient Name: Lizet Mcneil : 1950 Date of Admission: 10/05/2019 Date of Discharge: 10/07/19 Admitting Physician: Paulo Ayers MD Discharging Physician: Travis Copeland MD Primary Care Provider: JOEL Salvador Discharge Diagnoses: Principal Problem: Atrial fibrillation with RVR Active Problems: Acute heart failure with preserved ejection fraction Type 2 diabetes mellitus with diabetic nephropathy, with long-term current use of insulin Essential hypertension CKD (chronic kidney disease) stage 4, GFR 15-29 ml/min Tobacco abuse Resolved Problems: * No resolved hospital problems. * Consultants: Denia Nicole and Dr. Segundo Black of cardiology Procedures: 10/05 Echo: Summary Left ventricle is normal in size and function. Ejection fraction is estimated at 60-65%. Grade 2 diastolic dysfunction. Mildly thickened mitral valve with mild annular calcification and mild regurgitation. Moderate to severe left atrial enlargement. Xr Chest Ap Portable Result Date: 10/06/2019 SINGLE AP CHEST 10/05/2019 11:25 PM CLINICAL HISTORY: afib COMPARISON: None available FINDI NGS: The cardiac silhouette is enlarged and there is mild prominence of the pulmonary vascul ature. Peripheral septal lines are suggested at the lateral left base. No consolidation, p neumothorax or pleural effusion is visible. There are degenerative changes of the shoulders with probable left-sided rotator cuff calcification. Multilevel spondylosis is apparent. 1. ENLARGEMENT OF THE CARDIAC SILHOUETTE WITH MILD PROMINENCE OF THE PULMONARY VASCULATUR E AND PROBABLE PERIPHERAL SEPTAL LINES AT THE LEFT BASE, FAVORING INTERSTITIAL EDEMA. Dictat ed and Signed by: Yasir Parish MD Electronically signed: 10/06/2019 7:17 AM Labs in the last 24 hours: Recent Results (from the past 24 hour(s)) ECHO Complete Result Value Ref Range Inferior Vena Cava Diameter at Inspiration 2.14 cm Inferior Vena Cava Diameter at Expiration 2.52 cm LVIDd 4.62 cm FS 28 % LA volume 132.09 mL Ascending aorta 3.36 cm Aortic arch 2.08 cm MV Area by P 1/2 method 5.74 cm2 LVOT diameter 2 cm LVOT peak anitra 86.78 cm/s AV peak anitra 181 cm/s MR max anitra 498.67 cm/s AV peak gradient 13.1 mmHg MV peak gradient 99.47 mmHg MV Pressure 1/2 time 38.34 msec LA Volume Index 68 mL/m2 AV LVOT Peak Gradient 3.01 mmHg RV Free Wall Peak S' 12 cm/s RV Diastolic Basal Diameter 2.44 cm LV Huddleston's Biplane EF 62 % MV E' Lateral Velocity 6.84 cm/s MV E' Septal Velocity 5.38 cm/s MV Deceleration [place] 700.72 cm/s2 MV Deceleration Time 132.19 msec MV E/A Ratio 1.68 MV Peak A-Wave 58.67 cm/s MV Peak E-Wave 98.76 cm/s RA Area 16 cm2 LA/Aorta Ratio 1.36 LA Area 29.97 cm2 LA Systolic Pressure 20.05 mmHg MV E/E SEPTAL 18.36 MV E/E LATERAL 14.44 Vitals Heart Rate Rest 66 Vitals BP Systolic 130 Vitals BP Diastolic 61 Vitals Height 167.6 Vitals Weight 83.30 Vitals BSA 1.93 Vitals BMI 29.64 Aortic Root Diameter 3.12 cm IVS Diastolic Thickness MM 1.26 cm LVPW Diastolic Thickness MM 1.17 cm IVS Systolic Thickness MM 1.64 cm LV Systolic Diameter MM 3.34 cm LVPW Systolic Thickness MM 1.72 cm LA Systolic Diameter MM 4.24 cm TAPSE 1.7 cm LVEF-TTE TRANSTHORACIC ECHO 62 POC Glucose Result Value Ref Range Glucose, POC 271 (H) 70 - 109 mg/dL POC Glucose Result Value Ref Range Glucose, POC 167 (H) 70 - 109 mg/dL Basic Metabolic Panel Result Value Ref Range Na 141 136 - 145 mmol/L K 4.2 3.4 - 5.1 mmol/L Cl 111 (H) 98 - 107 mmol/L CO2 31 20 - 31 mmol/L Anion Gap -1 (L) 3 - 16 mmol/L Glucose 98 60 - 106 mg/dL BUN 47 (H) 9 - 23 mg/dL Creatinine 2.68 (H) 0.55 - 1.02 mg/dL eGFR if not 18 (L) >=60 mL/min/1.73m2 Calcium 9.9 8.7 - 10.4 mg/dL BUN/Creatinine Ratio 17.5 CBC no Differential Result Value Ref Range WBC 6.3 4.0 - 11.0 K/uL RBC 3.79 3.70 - 5.20 M/uL Hemoglobin 10.9 (L) 11.5 - 16.0 g/dL Hematocrit 32.9 (L) 34.0 - 47.0 % MCV 86.8 83.0 - 101.0 fL MCH 28.8 28.0 - 35.0 pg MCHC 33.1 32.0 - 36.0 g/dL RDW-CV 15.0 (H) <15.0 % RDW-SD 47.5 (H) 35.1 - 46.3 fL Platelet Count 241 140 - 440 K/uL MPV 9.1 6.5 - 12.4 fL % nRBC 0 0 - 2 per 100 WBCs Absolute nRBC 0.00 0.00 - 0.01 K/uL Magnesium Result Value Ref Range Magnesium 2.1 1.6 - 2.6 mg/dL POC Glucose Result Value Ref Range Glucose, POC 113 (H) 70 - 109 mg/dL POC Glucose Result Value Ref Range Glucose, POC 280 (H) 70 - 109 mg/dL Reason for Admission: Please refer to the H&P for full details. In short, this is a 69 y.o. female with a histor y of smoking, hypertension, CKD4, recent diagnosis of paroxysmal atrial fibrillation, who wa s admitted with shortness of breath, a fib with RVR, mild acute diastolic heart failure. Problem-Oriented Hospital Course: Atrial fibrillation with rapid ventricular response: - She is known to have paroxysmal atrial fibrillation, feels lightheaded and weak when she goes into a fib, has had symptoms for at least 3 weeks - Hospitalized in [address] for a day in August for rate control - Intermittent a fib vs. NSR in the hospital, in NSR for 24 hours at discharge - Increased metoprolol from 25 bid to 37.5 bid for better rate control - Discussed with Maxood, will continue rate control strategy at this point, but if she is u nable to tolerate a fib episodes, will need to consider adding amiodarone for rhythm control - On aspirin only currently, but has CHADS2-Vasc score of 5, and should be on anticoagulati on, appreciate cardiology consultation, started warfarin 10/06 for stroke prevention (new ora l anticoagulants contraindicated due to poor renal function) - Echo showed normal EF, moderate-large atria - TSH normal at 2.3 - She reported being diagnosed with JUSTIN, is not on CPAP or treatment at this point, which i s a risk factor, encourage follow up with sleep lab Hypertension essential: - Chronic, continue metoprolol. - BP controlled currently Acute heart failure with preserved ejection fraction: - Likely secondary to A. fib with RVR. - Echo showed large atria, preserved ejection fraction - Gave IV Lasix, just over 2 liters net neg at discharge, continue furosemide at discharge, rate control as above - Troponin marginally elevated, but in the setting of CKD4 and a fib with RVR, would not ca ll this [place] Diabetes mellitus type 2, insulin dependent with hyperglycemia: - On Lantus, holding liraglutide in the hospital - BS high in the 300's initially but normalized with insulin - She stated she has had hypoglycemia at home, advised decreasing glargine to 25 units for now, continuing liraglutide Chronic kidney disease stage IV: - Followed by Dr. Bingham - Creatinine stable at 2.7 at discharge Nicotine dependence: - Strongly encouraged cessation - Nicotine patch PRN, she has nicotine patches at home Restless legs syndrome: - Takes gabapentin, but states this is not sufficient - Added low-dose pramipexole, which she stated worked well for her Code Status: Full Code Disposition: Home Discharge Condition: Fair, alert, no distress Lung sounds somewhat diminished throughout Heart RRR, no m/r/g Abd soft, NT Ext WWP Follow-up Information Denia Nicole PA-C In 1 month. Specialties: Physician Cylinder Machine Operator Pulp Drier, Cardiology Contact information: [address] [facility] [id number] Discharge Medications New Medications Details pramipexole 0.125 MG tablet Take 1 tablet by mouth Daily for 30 days. aka: MIRAPEX Start: October 08, 2019 warfarin 5 mg tablet Take 1 tablet by mouth every evening. aka: COUMADIN Changed Medications Details insulin glargine 100 units/mL injection (pen) Inject 25 Units under the skin every evening. What changed: how much to take when to take this aka: LANRADHA SOLOSTMARISABEL metoprolol tartrate 25 mg tablet Take 1.5 tablets by mouth 2 times daily for 30 days. What changed: how much to take aka: LOPRESSOR Unchanged Medications Details albuterol 5 mg/mL nebulizer solution Take 2.5 mg by nebulization every 6 hours as needed. albuterol 90 mcg/puff inhaler Inhale 2 puffs into the lungs 4 times daily as needed for Wheezing or Shortness of Breath. betamethasone dipropionate 0.05% cream Apply 1 Application topically 2 times daily. To knees, legs and elbows every Friday and calcipotriene 0.005 % cream Apply 1 Application topically 2 times daily. To knees, legs and elbows after betamethasone every Friday through Friday aka: DOVONEX calcium-vitamin D 500 mg-200 units per tablet Take 1 tablet by mouth Daily. aka: OSCAL carboxymethylcellulose 0.5% ophthalmic solution Place 1 drop into both eyes. Two to three times daily for dry eye aka: REFRESH TEARS [facility] GLUCOSAMINE-CHONDROITIN PO Take by mouth. cyanocobalamin 100 mcg tablet Take 1,000 mcg by mouth Daily. aka: VITAMIN B-12 cyclobenzaprine 5 MG tablet Take 5 mg by mouth 3 times daily. For muscle spasms aka: FLEXERIL fish oil 1,000 mg capsule Take 2,000 mg by mouth 2 times daily. furosemide 40 mg tablet Take 40 mg by mouth 2 times daily. aka: LASIX gabapentin 300 mg capsule Take 300 mg by mouth 2 times daily. aka: NEURONTIN insulin aspart 100 units/mL injection cartridge Inject 5 Units under the skin 3 times daily (before meals). Per sliding scale: 150-199= 1 unit 200-249= 2 units 250-299= 3 units 300-349= 4 units >350= 5 units aka: novoLOG PENFILL MULTIVITAL PO Take by mouth. rosuvastatin 20 mg tablet Take 20 mg by mouth nightly. aka: CRESTOR SPIRULINA PO Take by mouth. VICTOZA 18 mg/3 mL injection Generic drug: liraglutide Inject 1.8 mg under the skin Daily. Discontinued Medications aspirin 81 mg EC tablet PDMP reviewed: Yes Studies With Pending Results: None Greater than 30 minutes were spent on discharge and coordination of post-hospital care. Electronically signed by: Travis Copeland MD, 10/07/2019 1:25 PM [facility] documented in this encounter Discharge Instructions Instructions Travis Copeland MD - 10/07/2019You were admitted with a fast irregular hear t beat called atrial fibrillation. You switch between this rhythm and a regular heart beat. Cardiology recommends that you take a blood-thinning medicine called warfarin (Coumadin) t o lower your risk of stroke, and this medicine will need to be adjusted by your [facility] provider. Please stop taking aspirin. You need to take an increased dose of metoprolol at 37.5 mg t wice daily. Pramipexole was ordered to help you with restless legs. Please use your nicoti ne patches to help you quit smoking. documented in this encounter Medications at Time of [...] mg by mouth | | 0 | 04// | | | 40 mg tablet | [...] | | | | | | | [id number]= 2 | | | | | | | [id number]= 3 | | | | | | | -224= 4 | | | | | | | units>350= 5 units | | | | | + + + +---------+ + + | insulin glargine | Inject 25 Units | 3 mL | 0 | 10/07/19 | | | (LANTUS SOLOSTAR) | under [...] + + + +---------+ + + | gabapentin | Take 300 mg by mouth | | 0 | | | | (NEURONTIN) 300 mg | 2 times daily. | | | | 0 | | capsule | | | | | | + + + +---------+ + + | metoprolol | Take 1.5 tablets by | 90 | 1 | 10/07/19 | | | tartrate (LOPRESSOR) | mouth 2 times daily | tablet | | 20 | 0 | | 25 mg tablet | for 30 days. | | | | | + + + +---------+ + + | pramipexole | Take 1 tablet by | 30 | 0 | 10/08/19 | | | (MIRAPEX) 0.125 MG | mouth Daily for 30 | tablet | | 20 | 0 | | tablet | days. | | | | | + + + +---------+ + + | warfarin | Take 1 tablet by | 7 | 0 | 10/07/19 | | | (COUMADIN) 5 mg | mouth every evening. | tablet | | 20 | 0 | | tablet | | | | | | + + + +---------+ + + documented as of this encounter Progress Notes Leo Cerna, Mold Shaker - 10/07/2019 3:26 PM PDTPHARMACY SERVICES: METOP ROLOL TARTRATE AND WARFARIN PATIENT EDUCATION Subjective/Objective: Met with Lizet Mcneil to provide teaching on the following including but not limited to : METOPROLOL TARTRATE Indication for medication Directions on how to take medication and importance of continuation Common side effects Adverse effects and when to seek medical attention Directions on what to do if miss a dose Monitoring (e.g., blood pressure, heart rate) Importance of checking blood sugar levels while on this medication Drug to drug interactions and the importance of informing providers before initiating an y new medications (e.g., [id number]) WARFARIN Indication for medication Importance of following-up with outpatient [place] clinic for warfarin dosing Importance of continuation Common side effects Adverse effects and when to seek medical attention (e.g., bleeding in stool/urine,bumpin g head, etc.) Ways to reduce bleeding (e.g., utilizing soft brush, be careful when handling sharp obje cts,etc.) Monitoring (INR) Keeping diet consistent such as foods that have high potassium content Drug to drug interactions and the importance of informing providers before initiating an y new medications (e.g., [id number]) Assessment/Plan: 1. Patient was provided a handout/booklet on Metoprolol Tartrate and Warfarin 2. Patient demonstrated understanding and all questions were answered. 3. Please consult pharmacist for any further medication related education. 4. Thank you. Electronically signed by: Leo Cerna, Mold Shaker 10/07/2019 3:27 PM Travis Membreno MD - 10/06/2019 4:22 PM PDTFormatting of this note might be different f rom the original. [facility] Hospitalist Progress Note Lizet Mcneil is a 69 y.o. female ASSESSMENT and PLAN: Active Hospital Problems Diagnosis Acute heart failure with preserved ejection fraction *Atrial fibrillation with RVR Tobacco abuse Type 2 diabetes mellitus with diabetic nephropathy, with long-term current use of insul in CKD (chronic kidney disease) stage 4, GFR 15-29 ml/min Essential hypertension Resolved Hospital Problems No resolved problems to display. Atrial fibrillation with rapid ventricular response: - She is known to have paroxysmal atrial fibrillation, feels lightheaded and weak when she goes into a fib, has had symptoms for at least 3 weeks - Hospitalized in [address] for a day in August for rate control - A fib with RVR on arrival to the 120's, converted to NSR with HR in the 60's-70's at 3:30 this morning, converted back to a fib around 9:30 AM, then back to NSR around noon, appears to be in a fib about half the time - Increase metoprolol for better control - On aspirin only currently, but has CHADS2-Vasc score of at least 4, and should be on anti coagulation - Echo pending - TSH normal at 2.3 - She reported being diagnosed with JUSTIN, is not on CPAP or treatment at this point, which i s a risk factor - Appreciate cardiology discussion, will discuss anticoagulation choices, consideration of rhythm control with her for management Hypertension essential: - Chronic, continue Lopressor. - BP controlled currently Acute heart failure with preserved ejection fraction: - Possibly secondary to A. fib with RVR. - Echo showed large atria, preserved ejection fraction - Give IV Lasix with goal ~ 1 liter net neg daily - Troponin marginally elevated, but in the setting of CKD4 and a fib with RVR, would not ca ll this [place] Diabetes mellitus type 2, insulin dependent with hyperglycemia: - On Lantus, holding liraglutide and glipizide. - BS high in the 300's, continue sliding scale insulin Chronic kidney disease stage IV: - Followed by Dr. Bingham - Creatinine mildly increased to 2.75 this morning, monitor closely while on diuresis Nicotine dependence: - Strongly encouraged cessation - Nicotine patch PRN Restless legs syndrome: - Takes gabapentin, but states this is not sufficient - Add low-dose pramipexole PT/OT ordered? : No Disposition : Home when stable Prophylaxis: heparin, aspirin SUBJECTIVE: Reason for visit/Chief complaint: Weakness, shortness of breath Interval History: Denies chest pain. Feels weak, mildly short of breath with palpitations when she goes into a fib. Feels somewhat better than on arrival. No nausea/vomiting. Prec ontemplative on smoking cessation. Slept poorly last night, severe RLS. VITALS: Temp: 35.2 C (95.3 F), Pulse: 68, Resp: 18, BP: 120/58, SpO2 90 % on room air Temp Min : 35.2 C (95.3 F) Max: 37.1 C (98.8 F) Intake/Output Summary (Last 24 hours) at 10/06/2019 1625 Last data filed at 10/06/2019 1326 Gross per 24 hour Intake 666 ml Output 2175 ml Net -1509 ml 14:LAST:1 83.3 kg (10/05/19 2205) Last: 83.3 kg (10/06/19 0001) Difference: 0kg PHYSICAL EXAM: General: Alert, sitting up, no distress, anxious Neck: Supple Cardiovascular: Irr irr Respiratory: CTA bilaterally Abdomen: Soft, NT Extremities: WWP, minimal edema Bang catheter present: No DIAGNOSTIC STUDIES: Available data and images were reviewed personally. Significant results and findings are a ddressed here or in the Assessment and Plan. Recent Results (from the past 24 hour(s)) Troponin I Result Value Ref Range Troponin I 0.06 (H) <0.06 ng/mL Basic Metabolic Panel Result Value Ref Range Na 138 136 - 145 mmol/L K 3.6 3.4 - 5.1 mmol/L Cl 107 98 - 107 mmol/L CO2 30 20 - 31 mmol/L Anion Gap 1 (L) 3 - 16 mmol/L Glucose 290 (H) 60 - 106 mg/dL BUN 42 (H) 9 - 23 mg/dL Creatinine 2.56 (H) 0.55 - 1.02 mg/dL eGFR if not 19 (L) >=60 mL/min/1.73m2 Calcium 10.5 (H) 8.7 - 10.4 mg/dL BUN/Creatinine Ratio 16.4 ECG 12 lead Result Value Ref Range VENTRICULAR RATE EKG 101 BPM QRS DURATION 96 ms Q-T INTERVAL 348 ms Q-T INTERVAL (CORRECTED) 451 ms QRS AXIS 87 degrees T AXIS -55 degrees INTERPRETATION TEXT Atrial fibrillation with rapid ventricular response T wave abnormality, consider inferior ischemia Nonspecific T wave abnormality Anterolateral leads Abnormal ECG No previous ECGs available Confirmed by HILDA WEBB, JOSEPHINE ([id number]) on 10/06/2019 6:26:09 AM POC Glucose Result Value Ref Range Glucose, POC 304 (H) 70 - 109 mg/dL B Type Natriuretic Peptide Result Value Ref Range BNP 1,607 (H) <100 pg/mL Troponin I Result Value Ref Range Troponin I 0.06 (H) <0.06 ng/mL Basic Metabolic Panel Result Value Ref Range Na 138 136 - 145 mmol/L K 4.2 3.4 - 5.1 mmol/L Cl 108 (H) 98 - 107 mmol/L CO2 32 (H) 20 - 31 mmol/L Anion Gap -2 (L) 3 - 16 mmol/L Glucose 275 (H) 60 - 106 mg/dL BUN 41 (H) 9 - 23 mg/dL Creatinine 2.75 (H) 0.55 - 1.02 mg/dL eGFR if not 17 (L) >=60 mL/min/1.73m2 Calcium 10.0 8.7 - 10.4 mg/dL BUN/Creatinine Ratio 14.9 CBC no Differential Result Value Ref Range WBC 7.2 4.0 - 11.0 K/uL RBC 3.72 3.70 - 5.20 M/uL Hemoglobin 10.8 (L) 11.5 - 16.0 g/dL Hematocrit 31.5 (L) 34.0 - 47.0 % MCV 84.7 83.0 - 101.0 fL MCH 29.0 28.0 - 35.0 pg MCHC 34.3 32.0 - 36.0 g/dL RDW-CV 15.1 (H) <15.0 % RDW-SD 46.4 (H) 35.1 - 46.3 fL Platelet Count 231 140 - 440 K/uL MPV 9.2 6.5 - 12.4 fL % nRBC 0 0 - 2 per 100 WBCs Absolute nRBC 0.00 0.00 - 0.01 K/uL Magnesium Result Value Ref Range Magnesium 1.9 1.6 - 2.6 mg/dL TSH Result Value Ref Range TSH 2.32 0.55 - 4.78 uIU/mL POC Glucose Result Value Ref Range Glucose, POC 317 (H) 70 - 109 mg/dL POC Glucose Result Value Ref Range Glucose, POC 296 (H) 70 - 109 mg/dL ECHO Complete Result Value Ref Range Inferior Vena Cava Diameter at Inspiration 2.14 cm Inferior Vena Cava Diameter at Expiration 2.52 cm LVIDd 4.62 cm FS 28 % LA volume 132.09 mL Ascending aorta 3.36 cm Aortic arch 2.08 cm MV Area by P 1/2 method 5.74 cm2 LVOT diameter 2 cm LVOT peak anitra 86.78 cm/s AV peak anitra 181 cm/s MR max anitra 498.67 cm/s AV peak gradient 13.1 mmHg MV peak gradient 99.47 mmHg MV Pressure 1/2 time 38.34 msec LA Volume Index 68 mL/m2 AV LVOT Peak Gradient 3.01 mmHg RV Free Wall Peak S' 12 cm/s RV Diastolic Basal Diameter 2.44 cm LV Huddleston's Biplane EF 62 % MV E' Lateral Velocity 6.84 cm/s MV E' Septal Velocity 5.38 cm/s MV Deceleration [place] 700.72 cm/s2 MV Deceleration Time 132.19 msec MV E/A Ratio 1.68 MV Peak A-Wave 58.67 cm/s MV Peak E-Wave 98.76 cm/s RA Area 16 cm2 LA/Aorta Ratio 1.36 LA Area 29.97 cm2 LA Systolic Pressure 20.05 mmHg MV E/E SEPTAL 18.36 MV E/E LATERAL 14.44 Vitals Heart Rate Rest 66 Vitals BP Systolic 130 Vitals BP Diastolic 61 Vitals Height 167.6 Vitals Weight 83.30 Vitals BSA 1.93 Vitals BMI 29.64 Aortic Root Diameter 3.12 cm IVS Diastolic Thickness MM 1.26 cm LVPW Diastolic Thickness MM 1.17 cm IVS Systolic Thickness MM 1.64 cm LV Systolic Diameter MM 3.34 cm LVPW Systolic Thickness MM 1.72 cm LA Systolic Diameter MM 4.24 cm TAPSE 1.7 cm Xr Chest Ap Portable Result Date: 10/06/2019 SINGLE AP CHEST 10/05/2019 11:25 PM CLINICAL HISTORY: afib COMPARISON: None available FINDI NGS: The cardiac silhouette is enlarged and there is mild prominence of the pulmonary vascul ature. Peripheral septal lines are suggested at the lateral left base. No consolidation, p neumothorax or pleural effusion is visible. There are degenerative changes of the shoulders with probable left-sided rotator cuff calcification. Multilevel spondylosis is apparent. 1. ENLARGEMENT OF THE CARDIAC SILHOUETTE WITH MILD PROMINENCE OF THE PULMONARY VASCULATUR E AND PROBABLE PERIPHERAL SEPTAL LINES AT THE LEFT BASE, FAVORING INTERSTITIAL EDEMA. Dictat ed and Signed by: Yasir Parish MD Electronically signed: 10/06/2019 7:17 AM acetaminophen, 650 mg, Oral, Q4H PRN albuterol, 2.5 mg, Nebulization, RT Q4H PRN aspirin, 81 mg, Oral, Daily calcium-vitamin D, 1 tablet, Oral, Daily cyanocobalamin, 1,000 mcg, Oral, Daily dextrose, 12.5-25 g, Intravenous, PRN And dextrose 10%, , Intravenous, Continuous PRN furosemide, 80 mg, Intravenous, Daily gabapentin, 300 mg, Oral, BID heparin, 5,000 Units, Subcutaneous, 2 times per day insulin lispro, 0-12 Units, Subcutaneous, 4x Daily WC and HS metoprolol tartrate, 25 mg, Oral, BID nicotine, 1 patch, Transdermal, Daily PRN ondansetron, 4 mg, Intravenous, Q6H PRN rosuvastatin, 20 mg, Oral, Nightly Total time of approximately 25 minutes was spent with the patient and/or patient's family, and/or on the patient's floor/unit, of which more than 50% was spent counseling and/or coord ination the patient's care as outlined above. Travis Copeland MD 10/06/2019 4:25 PM [facility], [facility] rmD - 10/06/2019 7:30 AM PDT RENAL DOSE ADJUSTMENT PER PHARMACY PROTOCOL: Subjective/Objective: Lizet Mcneil is a 69 y.o. year old female admitted on 10/05/2019 10:09 PM and is rece iving GABAPENTIN BP 125/84 | Pulse 102 | Temp 36.7 C (98.1 F) (Oral) | Resp 18 | Ht 1.676 m (5' 6") | Wt 83.3 kg (183 lb 10.3 oz) | SpO2 94% | BMI 29.64 kg/m Intake/Output Summary (Last 24 hours) at 10/06/2019 0727 Last data filed at 10/06/2019 0600 Gross per 24 hour Intake 450 ml Output 1750 ml Net -1300 ml Recent Labs Lab 10/06/19 0525 10/05/19 2226 CREA 2.75* 2.56* Estimated Creatinine Clearance: 21 mL/min (A) (based on SCr of 2.75 mg/dL (H)). Date Day of therapy Creatinine CrCl (mL/min) Dose-current Dose-new 10/06/19 1 2.75 21 800 mg q8hr 300 mg q24hr Assessment/Plan: For creatinine clearance 15-29 mL/min, decrease dose of gabapentin as above. Pharmacy will continue to follow and adjust dose as appropriate to clinical condition and c reatinine clearance changes RENAL DOSE ADJUSTMENT PROTOCOL Electronically signed by: Vicente Jamison PharmD 10/06/2019 7:27 AM documented in this encounter H&P Notes Paulo Ayers MD - 10/05/2019 10:[address] [facility] HISTORY AND PHYSICAL Pt. Name/Age/: Lizet Mcneil 69 y.o. 1950 Date of admission: 10/05/2019 Admitting Physician: Paulo Ayers MD Primary Care Provider: JOEL Salvador CHIEF COMPLAINT: Weakness HISTORY OF PRESENT ILLNESS: This is a 69 y.o. female past medical history significant for atrial fibrillation, chronic kidney disease stage IV, diabetes mellitus type 2, hypertension who presents with weakness. Patient states that symptoms have been progressing over the last week. Patient states that she will have increasing weakness when walking outside of her home. Rest would alleviate t he symptoms. Patient also notes that she has been having palpitations over the last 3 weeks . Patient states that she would also hear swishing sounds in her ears. Patient was hospita lized 1 week ago for atrial fibrillation with RVR. Her medications were changed for her blo od pressure. Patient states she has been taking Lopressor at increased dosages. Patient st ates that she still continues to smoke. She denies fevers and/or chills. At the outside hospital ED patient presented with atrial fibrillation with rapid ventricula r response. Patient converted to normal sinus rhythm without any interventions. She was ho spitalized 2 weeks ago for atrial fibrillation with rapid ventricular response. Her metopro lol was increased, her Norvasc was discontinued. PAST MEDICAL and SURGICAL HISTORY: Past Medical History: Diagnosis Date CKD (chronic kidney disease) stage 4, GFR 15-29 ml/min ([facility]) 07/28/2019 Diabetes mellitus ([facility]) 07/28/2019 Hypertension 07/28/2019 Nicotine dependence 07/28/2019 History reviewed. No pertinent surgical history. FAMILY HISTORY: family history is not on file. SOCIAL HISTORY: reports that she has been smoking cigars. She has been smoking about 0.50 packs per day. S he has never used smokeless tobacco. 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 albuterol 90 mcg/puff inhaler Inhale 2 puffs into the lungs every 6 hours as needed. amLODIPine (NORVASC) 10 MG tablet Take 10 mg by mouth 2 times daily. aspirin 81 mg EC tablet Take 81 mg by mouth Daily. calcium-vitamin D (OSCAL) 500 mg-200 units per tablet Take 1 tablet by mouth Daily. carboxymethylcellulose (REFRESH TEARS) 0.5% ophthalmic solution Place 1 drop into both eyes every hour as needed. [facility] GLUCOSAMINE-CHONDROITIN PO Take by mouth. cyanocobalamin (VITAMIN B-12) 100 mcg tablet Take 1,000 mcg by mouth Daily. cyclobenzaprine (FLEXERIL) 5 MG tablet Take 5 mg by mouth 3 times daily as needed. fish oil 1,000 mg capsule Take 1,000 mg by mouth 3 times daily. fluconazole (DIFLUCAN) 150 mg tablet Take 150 mg by mouth once. furosemide (LASIX) 20 mg tablet 40 mg. gabapentin (NEURONTIN) 800 MG tablet Take 800 mg by mouth 3 times daily. glipiZIDE (GLUCOTROL) 10 MG tablet Take 10 mg by mouth 2 times daily (before meals). insulin aspart (NOVOLOG PENFILL) 100 units/mL injection cartridge Inject under the ski n 3 times daily (before meals). insulin glargine (LANTUS) 100 units/mL injection (vial) Inject under the skin nightly. Liraglutide (VICTOZA SC) Inject under the skin. losartan (COZAAR) 50 mg tablet Take 1 tablet by mouth 2 times daily. metoprolol tartrate (LOPRESSOR) 25 mg tablet TAKE 1 2 (ONE HALF) TABLET BY MOUTH TWICE DAILY Multiple Vitamins-Minerals (MULTIVITAL PO) Take by mouth. pregabalin (LYRICA) 25 mg capsule Take 25 mg by mouth 2 times daily. rosuvastatin (CRESTOR) 20 mg tablet Take 20 mg by mouth nightly. SPIRULINA PO Take by mouth. ALLERGIES: Allergies Allergen Reactions Baclofen Other (See Comments) Unspecified reaction Ciprofloxacin Other (See Comments) Unspecified reaction Sulfa Antibiotics Other (See Comments) Unspecified reaction VITAL SIGNS: Temp: 36.2 C (97.2 F), Pulse: 104, Resp: 18, BP: 143/81, SpO2 94 % on room air at flow rate L/min Temp Min: 36.2 C (97.2 F) Max: 36.2 C (97.2 F) Weight: 83.3 kg (183 lb 10.3 oz) PHYSICAL EXAMINATION: Gen Stephanie - alert, cooperative and no distress Head - Normocephalic, without obvious abnormality, atraumatic Eyes - PERRL, conjunctiva/corneas clear, EOM's intact both eyes ENT - mucous membranes moist Neck - supple Lungs - good air movement bilat, Bibasilar crackles Heart - normal rate, irreg rhythm w/o m/r/g Abdomen - obese Normoactive bowel sounds, non-tender non-distended Extremities - no peripheral edema, no clubbing or cyanosis Skin - dry skin Neurologic - Alert and oriented x 3. CN II-XII intact. strength- 5/5 throughout Ref lexes 2+ bilateral biceps, triceps, & patellar Sensory- no deficits G DIAGNOSTIC STUDIES: Available data and images were reviewed personally. Significant results and findings are a ddressed here or in the Assessment and Plan. Lab Results Component Value Date HGB 12.2 07/28/2019 LABPLAT 255 07/28/2019 Lab Results Component Value Date NA 138 10/05/2019 K 3.6 10/05/2019 CL 107 10/05/2019 CO2 30 10/05/2019 CREA 2.56 (H) 10/05/2019 BUN 42 (H) 10/05/2019 No results found for: POCGLU No results found. OSH labs 135| 99| 43 Mg-2.1 <322 3.6 | 30 | 2.71 11.8 7.2> <258 34.5 Trop-.04 BNP- EKG: Reviewed independently by me. The tracing shows # 1 Afib with vent rate 101, 2 NSR ASSESSMENT and PLAN: Active Hospital Problems Diagnosis Atrial fibrillation Resolved Hospital Problems No resolved problems to display. Atrial fibrillation with rapid ventricular response: We will continue Lopressor. Echo to a ssess LV and valvular function. We will continue baby aspirin. Will need to discuss antico agulation. Hypertension essential chronic we will continue Lopressor. Acute heart failure: Likely secondary to A. fib with RVR. Echo to assess LV function. Darwin l give IV Lasix. Type II OH: Troponin elevation likely due to rapid ventricular response. Will monitor on t elemetry. Will trend troponins Diabetes mellitus type 2: We will continue Lantus. We will give sliding scale insulin Chronic kidney disease stage IV: Stable Nicotine dependence: We will give nicotine patch Hep-Lock IV. Hypokalemia: Replete potassium. Will check electrolytes daily. Give patient cardiac/diabetic diet DVT Prophylaxis Heparin SC Code Status Full code CMS Documentation I certify that this admission will likely be greater than 2 midnights and posthospital disc harge will be to home Total of 78 minutes were required to complete the admission process. Electronically signed by: Paulo Ayers MD 10/05/2019 11:43 PM [facility] documented in this enc ounter Consult Notes Grahma Black MD - 10/07/2019 10:40 AM PDTFormatting of this note might be differe nt from the original. PATIENT NAME: Lizet Mcneil : 1950: AGE: 69 y.o. ADMISSION DATE: 10/05/2019 HOSPITAL DAY NUMBER: 2 PRIMARY CARE: JOEL Salvador REFERRING PROVIDER: Dr. Travis Copeland CONSULTING PROVIDER: Mary Black MD [facility] CARDIOLOGY CONSULTATION DATE OF CONSULTATION: 10/07/19 REASON FOR CONSULT: Atrial fibrillation HISTORY OF PRESENT ILLNESS: Lizet Mcneil is a 69 y.o. female with a history of paroxysmal atrial fibrillation, t obacco use, IDDM type II, diabetic nephropathy, CKD IV, and HTN. She was admitted to [facility] on 10/05/2019 for Atrial fibrillation with RVR ([facility]). She has as sociated heart failure with preserved ejection fraction. She describes feeling palpitations for the past few months most notable while lying in bed. These would come and go within minutes. She notes a several weed history of increasing we akness, and a vague feeling of "I could tell I wasn't doing good", as well as lightheadednes s. Upon arrival, her heart rate was in the 120's, and with up titration of metoprolol she h as been in normal sinus rhythm for almost 24 hours now. Echocardiogram examination show pre served LVEF. Of note, she states that about 1 yr ago her PCP told her she has heart problems and started her on lasix. She was hospitalized late August due to Atrial fibrillation with uncontrolled rate. PAST MEDICAL HISTORY Past Medical History: Diagnosis Date CKD (chronic kidney disease) stage 4, GFR 15-29 ml/min ([facility]) 07/28/2019 Diabetes mellitus ([facility]) 07/28/2019 Hypertension 07/28/2019 Nicotine dependence 07/28/2019 CURRENT PROBLEMS Principal Problem: Atrial fibrillation with RVR Active Problems: Acute heart failure with preserved ejection fraction Type 2 diabetes mellitus with diabetic nephropathy, with long-term current use of insulin Essential hypertension CKD (chronic kidney disease) stage 4, GFR 15-29 ml/min Tobacco abuse PAST SURGICAL HISTORY History reviewed. No pertinent surgical history. FAMILY HISTORY History reviewed. No pertinent family history. SOCIAL HISTORY Social History Socioeconomic History Marital status: Unknown [...] file Gets together: Not on file Attends catholic service: Not on file Active member of [...] file Social History Narrative Not on file OUTPATIENT MEDICATIONS Medications Prior to Admission Medication Sig Dispense Refill albuterol 5 mg/mL nebulizer solution Take 2.5 mg by nebulization every 6 hours as neede d. albuterol 90 mcg/puff inhaler Inhale 2 puffs into the lungs 4 times daily as needed for Wheezing or Shortness of Breath. aspirin 81 mg EC tablet Take 81 mg by mouth Daily. betamethasone dipropionate 0.05% [...] 40 mg by mouth 2 times daily. gabapentin (NEURONTIN) 300 mg capsule Take 300 mg by mouth 2 times daily. insulin aspart (NOVOLOG PENFILL) 100 units/mL injection cartridge Inject 5 Units under the skin 3 times daily (before meals). Per sliding scale: 150-199= 1 unit 200-249= 2 units 250-299= 3 units 300-349= 4 units >350= 5 units insulin glargine (LANTUS) 100 units/mL injection (vial) Inject 45 Units under the skin nightly. liraglutide (VICTOZA) 18 mg/3 mL injection Inject 1.8 mg under the skin Daily. metoprolol tartrate (LOPRESSOR) 25 mg tablet Take 25 mg by mouth 2 times daily. Multiple Vitamins-Minerals (MULTIVITAL PO) Take by mouth. rosuvastatin (CRESTOR) 20 mg tablet Take 20 mg by mouth nightly. SPIRULINA PO Take by mouth. CURRENT SCHEDULED MEDS: aspirin 81 mg Oral Daily calcium-vitamin D 1 tablet Oral Daily cyanocobalamin 1,000 mcg Oral Daily furosemide 80 mg Intravenous Daily gabapentin 300 mg Oral BID heparin 5,000 Units Subcutaneous 2 times per day insulin glargine 30 Units Subcutaneous QPM insulin lispro 0-18 Units Subcutaneous 4x Daily WC and HS metoprolol tartrate 25 mg Oral TID pramipexole 0.125 mg Oral Daily rosuvastatin 20 mg Oral Nightly IV INFUSIONS: dextrose 10% ALLERGIES Allergies Allergen Reactions Baclofen Other (See Comments) Unspecified reaction Ciprofloxacin Other (See Comments) Unspecified reaction Sulfa Antibiotics Other (See Comments) Unspecified reaction REVIEW OF SYSTEMS Constitutional: Denies fatigue,sudden weight gain. Eyes: Denies double vision. Ears/Nose/Throat: Denies nosebleeds. Cardiovascular: Denies chest pains, syncope, presyncope, dizziness, PND, peripheral edema. Has had orthopnea for 1-2 yrs, and describes palpitations as noted in HPI Respiratory: Denies dyspnea with exertion, dyspnea at rest. Gastrointestinal: Denies nausea, vomiting. Genitourinary: Denies nocturia. Musculoskeletal: Denies myalgias. Skin: Denies rash. Neurologic: Denies seizures. Heme: Denies bleeding. Endocrine: Denies cold intolerance. PHYSICAL EXAM Latest VS: BP 132/69 | Pulse 62 | Temp 36.1 C (97 F) (Oral) | Resp 18 | Ht 1.676 m (5' 6") | Wt 83.3 kg (183 lb 10.3 oz) | SpO2 95% | BMI 29.64 kg/m Admit Weight: Weight: 83.3 kg (183 lb 10.3 oz) Current weight: Weight: 83.3 kg (183 lb 10.3 oz) Vital sign ranges for last 24hrs: Input and output for last 24hrs: Temp: [35.2 C (95.3 F)-36.6 C (97.9 F)] 36.1 C (97 F) Pulse: [57-68] 62 Resp: [18] 18 BP: (120-138)/(58-78) 132/69 SpO2 Av.2 % Min: 90 % Max: 96 % 10/04 1901 - 10/06 0700 In: 1306 [P.O.:1306] Out: 3525 [Urine:3525] Constitutional General appearance: well developed, well nourished, no acute distress, centrally obese older female Cardiovascular NYHA Class: II- Symptoms with moderate exertion Palp/Percussion: PMI in 5th ICS at MCL; no lifts, thrills, palp S3 or S4. Auscultation: normal S1 S2; no gallop or rub or click Murmur: Blowing systolic murmur noted 2/6 Carotid arteries: pulses 2+, symmetric, no bruits Abdominal aorta: no enlargement or bruits, though exam limited due to obese abdomen. Femoral arteries: Not performed Pedal pulses: pulses 2+, symmetric Peripheral circulation: no cyanosis, clubbing, edema, or varicosities Gastrointestinal Abdomen: soft, mild epigastric tenderness, obese. Liver and spleen: no enlargement Mental Status/Neurological Orientation: oriented to time, place, and person Affect/Mood: no anxiety, or agitation. She is tearful today Respiratory Respiratory effort: no intercostal retractions or use of accessory muscles Auscultation: no rales, rhonchi, or wheezes Eyes Conjunctiva & lids: conjunctiva and lids normal Ears, Nose and Throat Lips: no pallor or cyanosis Neck Jugular veins: no significant JVD Musculoskeletal Gait and station: normal without ataxia Extremities Digits and nails: no clubbing, cyanosis, or petechiae Skin Inspection: no visible rashes, lesions, or ulcerations LABS Recent Results (from the past 24 hour(s)) ECHO Complete Collection Time: 10/06/19 3:15 PM Result Value Ref Range Inferior Vena Cava Diameter at Inspiration 2.14 cm Inferior Vena Cava Diameter at Expiration 2.52 cm LVIDd 4.62 cm FS 28 % LA volume 132.09 mL Ascending aorta 3.36 cm Aortic arch 2.08 cm MV Area by P 1/2 method 5.74 cm2 LVOT diameter 2 cm LVOT peak anitra 86.78 cm/s AV peak anitra 181 cm/s MR max anitra 498.67 cm/s AV peak gradient 13.1 mmHg MV peak gradient 99.47 mmHg MV Pressure 1/2 time 38.34 msec LA Volume Index 68 mL/m2 AV LVOT Peak Gradient 3.01 mmHg RV Free Wall Peak S' 12 cm/s RV Diastolic Basal Diameter 2.44 cm LV Huddleston's Biplane EF 62 % MV E' Lateral Velocity 6.84 cm/s MV E' Septal Velocity 5.38 cm/s MV Deceleration [place] 700.72 cm/s2 MV Deceleration Time 132.19 msec MV E/A Ratio 1.68 MV Peak A-Wave 58.67 cm/s MV Peak E-Wave 98.76 cm/s RA Area 16 cm2 LA/Aorta Ratio 1.36 LA Area 29.97 cm2 LA Systolic Pressure 20.05 mmHg MV E/E SEPTAL 18.36 MV E/E LATERAL 14.44 Vitals Heart Rate Rest 66 Vitals BP Systolic 130 Vitals BP Diastolic 61 Vitals Height 167.6 Vitals Weight 83.30 Vitals BSA 1.93 Vitals BMI 29.64 Aortic Root Diameter 3.12 cm IVS Diastolic Thickness MM 1.26 cm LVPW Diastolic Thickness MM 1.17 cm IVS Systolic Thickness MM 1.64 cm LV Systolic Diameter MM 3.34 cm LVPW Systolic Thickness MM 1.72 cm LA Systolic Diameter MM 4.24 cm TAPSE 1.7 cm LVEF-TTE TRANSTHORACIC ECHO 62 POC Glucose Collection Time: 10/06/19 4:42 PM Result Value Ref Range Glucose, POC 271 (H) 70 - 109 mg/dL POC Glucose Collection Time: 10/06/19 10:06 PM Result Value Ref Range Glucose, POC 167 (H) 70 - 109 mg/dL Basic Metabolic Panel Collection Time: 10/07/19 5:44 AM Result Value Ref Range Na 141 136 - 145 mmol/L K 4.2 3.4 - 5.1 mmol/L Cl 111 (H) 98 - 107 mmol/L CO2 31 20 - 31 mmol/L Anion Gap -1 (L) 3 - 16 mmol/L Glucose 98 60 - 106 mg/dL BUN 47 (H) 9 - 23 mg/dL Creatinine 2.68 (H) 0.55 - 1.02 mg/dL eGFR if not 18 (L) >=60 mL/min/1.73m2 Calcium 9.9 8.7 - 10.4 mg/dL BUN/Creatinine Ratio 17.5 CBC no Differential Collection Time: 10/07/19 5:44 AM Result Value Ref Range WBC 6.3 4.0 - 11.0 K/uL RBC 3.79 3.70 - 5.20 M/uL Hemoglobin 10.9 (L) 11.5 - 16.0 g/dL Hematocrit 32.9 (L) 34.0 - 47.0 % MCV 86.8 83.0 - 101.0 fL MCH 28.8 28.0 - 35.0 pg MCHC 33.1 32.0 - 36.0 g/dL RDW-CV 15.0 (H) <15.0 % RDW-SD 47.5 (H) 35.1 - 46.3 fL Platelet Count 241 140 - 440 K/uL MPV 9.1 6.5 - 12.4 fL % nRBC 0 0 - 2 per 100 WBCs Absolute nRBC 0.00 0.00 - 0.01 K/uL Magnesium Collection Time: 10/07/19 5:44 AM Result Value Ref Range Magnesium 2.1 1.6 - 2.6 mg/dL POC Glucose Collection Time: 10/07/19 6:32 AM Result Value Ref Range Glucose, POC 113 (H) 70 - 109 mg/dL IMAGING Xr Chest Ap Portable Result Date: 10/06/2019 SINGLE AP CHEST 10/05/2019 11:25 PM CLINICAL HISTORY: afib COMPARISON: None available FINDI NGS: The cardiac silhouette is enlarged and there is mild prominence of the pulmonary vascul ature. Peripheral septal lines are suggested at the lateral left base. No consolidation, p neumothorax or pleural effusion is visible. There are degenerative changes of the shoulders with probable left-sided rotator cuff calcification. Multilevel spondylosis is apparent. 1. ENLARGEMENT OF THE CARDIAC SILHOUETTE WITH MILD PROMINENCE OF THE PULMONARY VASCULATUR E AND PROBABLE PERIPHERAL SEPTAL LINES AT THE LEFT BASE, FAVORING INTERSTITIAL EDEMA. Dictat ed and Signed by: Yasir Parish MD Electronically signed: 10/06/2019 7:17 AM Echocardiogram 10/06/2019 reveals LV normal size and function. Ejection fraction is estimat ed at 60 to 65%. Grade 2 diastolic dysfunction. Mildly thickened mitral valve with mild an nular calcification and mild regurgitation. Moderate to severe left atrial enlargement. EC10/05/2019 reveals atrial fibrillation with rapid ventricular response, heart rate 101. T wave abnormality consider inferior ischemia. Nonspecific T wave abnormality anterior la teral leads. Abnormal ECG ASSESSMENT: 1. Atrial fibrillation -this is the patient's second admission for atrial fibrillation wit h rapid ventricular response. She has multiple underlying contributing factors including un treated obstructive sleep apnea, chronic tobacco use, and uncontrolled diabetes. Recent ech ocardiogram demonstrated preserved LV function though an element of diastolic dysfunction. Risk of stroke is reviewed today; her risk factors are Congestive Heart Failure/LV dysfunct ion (1), Hx of HTN (1), Diabetes (1), Age 65 to 74 (1) and Female Gender (1), giving her a C [id number] of 5, estimating a 5=6.7% risk of stroke per year in atrial fibrillation. Risk of bleed on anticoagulant is also reviewed today; her risk factors are HTN (1), Scr >2.3mg/d l(1) and >64 YO (1) , giving her a HAS-BLED score of 3, patient is at 2-3= Intermediate Ris k (4.1-5.8%) for risk of bleed. With her renal failure (CrCl 26) and multiple comorbiditie s I would recommend warfarin for anticoagulation therapy. Given this, this is suboptimal ti me to consider additional therapy with an agent such as amiodarone. If patient experiences a relapse, this may be considered in the future. 2. Uncontrolled diabetes - patient would benefit from endocrinology follow up for optimal diabetic control 3. Untreated Sleep Apnea - she admits to history of sleep apnea. She does not wear a CPAP . Recommend she follow up with sleep medicine for further assessment and potential treatmen t of her sleep apnea as this is likely contributing to her episodes of atrial fibrillation. 4. Tobacco dependence - discussed smoking cessation for cardiovascular health > 3 minutes. PLAN: 1. Warfarin to reduce the risk of stroke 2. Smoking Cessation 3. Follow up with sleep medicine re: untreated JUSTIN 4. Optimize diabetic control - recommend endocrinology follow up. 5. Recommend follow up as an outpatient in 1-2 months with Denia Nicole PA-C. Thank you for allowing us to participate in the care of this patient. Electronically signed by: Graham Black MD, PhD, [facility] 10/07/2019 12:42 PM Portions of this chart may have been created with Strobe voice recognition software. Occasi onal wrong-word or sound-alike substitutions may have occurred due to the inherent simons itations of voice recognition software. Please read the chart carefully and recognize, using context, where these substitutions have occurred. documented in t his encounter Miscellaneous Notes Plan of Peggy Mathur RN - 10/07/2019 4:55 PM PDT Problem: Discharge Planning Goal: Patient's discharge needs will be identified in a timely manner 10/07/2019 1655 by Peggy Gilliam RN Outcome: Met 10/07/2019 1530 by Peggy Gilliam RN Outcome: Ongoing, progressing Lizet was able to be discharged in time to pick-up meds from the [facility]. Prior to discharge Dr. Copeland decided she should probably have a baseline INR and have her f irst dose of coumadin today. INR results faxed to [facility] to provide to the coumadin clinic as a baseline. Fax confirmation received. Dispo: Home by self, transported by Son.Electronically signed by: Peggy Gilliam RN 020 5:04 PM lan of Az Simms RN - 10/07/2019 3:53 PM PDTMrs Christiano discharges to home and is without d istress at the time of discharge. She [facility] RxElectr onically signed by Az Melendez RN at 10/07/2019 6:15 PM PDTPlan of Peggy Mathur RN - 10/07/2019 3:30 PM PDT Problem: Discharge Planning Goal: Patient's discharge needs will be identified in a timely manner Outcome: Ongoing, progressing Lizet has received discharge orders. She is a [facility] patient of [facility] and re quests [facility] Scripts faxed to [facility] and RN giovanny osborn that she will need followed in the coumadin clinic. 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 Her Son is picking her up.Electronically si gned by: Peggy Gilliam RN 10/07/2019 3:34 PM [facility] at 1430, because Lizet lives in [address] and would like to get on the ro ad. Finally got an answer at [facility] office. The prescriptions are on her d esk, but not signed. RN at [facility] states pharmacy closes at 1630. Lizet's Son is in town and re diallo to pick her up. RN agreed to get scripts signed and faxed to the pharmacy [facility], since kajal morrissey can DC her in time to get there by 1600 for the covid screening [facility] Plan: Home by self, Son driving her home after meds picked up at the [facility].Electronically sign ed by: Peggy Gilliam RN 10/07/2019 3:46 PM lan of Care - Ana Driscoll RN - 10/07/2019 3:19 AM PDT Problem: Adult Inpatient Plan of Care Goal: Plan of Care Review Outcome: Ongoing, progressing Goal: Patient-Specific Goal Outcome: Ongoing, progressing Goal: Absence of Hospital-Acquired Illness or Injury Outcome: Ongoing, progressing Goal: Optimal Comfort and Wellbeing Outcome: Ongoing, progressing Goal: Readiness for Transition of Care Outcome: Ongoing, progressing Goal: Rounds/Family Conference Outcome: Ongoing, progressing Problem: Fall Injury Risk Goal: Absence of Fall and Fall-Related Injury Outcome: Ongoing, progressing Problem: Discharge Planning Goal: Patient's discharge needs will be identified in a timely manner Outcome: Ongoing, progressing Problem: Arrhythmia/Dysrhythmia Goal: Normalized Cardiac Rhythm Outcome: Ongoing, progressing Patient A/O X4, vss, HR in the 60s NSR per TELE monitor, PIV on LAC taken out pt c/o pain o n the IV site, no s/s of phlebitis or infiltration, pt wanted it taken out, IV discontinued and new IV 20G placed on RAC, tolerating diet, no sliding scale insulin needed last night, restless legs better tonight controlled with gabapentin and mirapex, wants to go outside and smoke, has nicotine patches available does not want the patch, slept between cares. Call shabbir peña within reach, calls appropriatly, will continue to monitor. lan of [facility] - Chelsey Weaver RN - 10/06/2019 6:38 PM PDTLizet went back into Afib at 0919 this am and back out at 1144. HR per television program director was 120-140. Lizet stated she felt fatigued at that time. IV metoprolol given and po metop rolol was adjusted. She is upset she cannot go outside to smoke and is refusing a nicotine p atch. C/o RLS frequently. Mirapex added this evening to regimen. BS have been low 300, hi 200's. SS adjusted and Lantus added this evening. Lungs are clear but dim. 90-92% on RA. lan of [facility] - Aníbal Ma Chaplain - 10/06/2019 6:26 PM PDT Spiritual Care Lizet Mcneil is a 69 y.o. female who is admitted for Afib. Tool Planner had a pleasant visit with the patient. Patient want to smoke in the worst way. I told the patient that isn't going to happen while she is in the hospital. Active listening/pastoral support provided. Prayer was offered. Will see the patient as requested. If there are any other spiritual care issues that arise, please contact boiler welder. lan of Robert - Jamin Vieyra LICSW - 10/06/2019 11:44 AM PDTVisited with this patient who was admit edgar with chest pain. The patient is a and is not service connected. She lives in a ground floor apartment with hr little dog in [address]. Patient still drives and alternate s in using a cane and a walker. She has a son living in [address] who will pick her up and take her home. 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 Patient still smokes and will want to return to smoking after her hospital stay.Electro nically signed by: BETTY Santiago 10/06/2019 11:50 AM lan of Care - Yamila, Ana Wise RN - 09/23 5:31 AM PDTArrived to floor at 2330, Pt A/O X4, on Tele AFIB, VSS, HR 100s-140s, MD aware allowed pt to stay tachy, if HR continued to be tachy MD would order to give lopressor earlier than scheduled, BT normoactive, no c/o dizziness, or chest pain, c/o of a little ge neralized weakness, c/o restless leg pain gave scheduled 800mg gabapentin, 045 lasix given, good UOP all night, BP maintained stable. BG managed with lispro. Call light within reach, w ill continue to monitor. documented in this encounter Plan of Treatment [...] + documented in this encounter Results ECG - EXTERNAL SCAN (10/13/2019 12:00 [...] | Time | | seconds | [facility] | | | | [...] + | [facility] | [address] | [place] | [phone] | | [facility] | | [address] | | | - LABORATORY | | | | + + + + + POC Glucose (10/07/2019 12:25 PM PDT) + +---------+ + + + | Component | Value | Ref Range | Performed | Pathologist | | | | | At | Signature | + +---------+ + + + | Glucose, | 280 (H) | 70 - 109 mg/dL | [facility] | | | POC | | | [facility] | | [...] [address] | [place] | [phone] | | [facility] | | [address] | | | - LABORATORY | | | | + + + + + POC Glucose (10/07/2019 6:32 AM PDT) + +---------+ + + + | Component | Value | Ref Range | Performed | Pathologist | | | | | At | Signature | + +---------+ + + + | Glucose, | 113 (H) | 70 - 109 mg/dL | [facility] | | | POC | | | [...] + + | [facility] | [address] | [place] | [phone] | | [facility] | | [address] | | | - LABORATORY | | | | + + + + + Magnesium (10/07/2019 5:44 AM PDT) + +-------+ + + + | Component | Value | Ref Range | Performed | Pathologist | | | | | At | Signature | + +-------+ + + + | Magnesium | 2.1 | 1.6 - 2.6 mg/dL | [facility] | | | | [...] + | [facility] | [address] | [place] | [phone] | | [facility] | | [address] | | | - LABORATORY | | | | + + + + + CBC no Differential (10/07/2019 5:44 AM PDT) + + + + + + [...] | | | | g/dL | [facility] | | | | [...] | | Count | | | [facility] | | [...] + | [facility] | [address] | [place], [place] | [phone] | | [facility] | | [address] | | | - LABORATORY | | | | + + + + + Basic Metabolic Panel (10/07/2019 5:44 AM PDT) + + + + + + [...] | rerun and verified. | | [facility] | | | [...] 2.68 (H) | 0.55 - 1.02 | [facility] | | | | | mg/dL | [facility] | | [facility] | | | | | | [facility] - | | | | | | LABORATORY | | + + + + + + | eGFR if not | 18 (L)Comment: | >=60 | [facility] | | | | GLOMERULAR FILTRATION | mL/min/1.73m2 | [facility] | | | [place] | RATE,ESTIMATED | | MEDICAL | | | | mL/min/1.43b5Dzdd than | | CENTER - | | [...] | 9.9 | 8.7 - 10.4 | [facility] | | | | | mg/dL | [facility] | | | | | | [facility] [...] + | [facility] | [address] | [place] | [phone] | | [facility] | | [address] | | | - LABORATORY | | | | + + + + + POC Glucose (10/06/2019 10:06 PM PDT) + +---------+ + + + | Component | Value | Ref Range | Performed | Pathologist | | | | | At | Signature | + +---------+ + + + | Glucose, | 167 (H) | 70 - 109 mg/dL | [facility] | | | POC | | | [facility] | | | | | | [facility] [...] + | [facility] | [address] | [place] | [phone] | | [facility] | | [address] | | | - LABORATORY | | | | + + + + + POC Glucose (10/06/2019 4:42 PM PDT) + +---------+ + + + | Component | Value | Ref Range | Performed | Pathologist | | | | | At | Signature | + +---------+ + + + | Glucose, | 271 (H) | 70 - 109 mg/dL | [facility] | | | POC | | | [facility] | | [...] 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 Procedure DateDate: 10/06/2019 Start: 02:51 | | | PM [facility] Adequate visualization | | | Indications:Atrial [...] | | | Electronically signed by ELADIA BLACK MD (Interpreting physician) on | | [...] Procedure Note | + + | Peewee, Abdoul Results In 10/06/2019 5:21 PM PDT Transthoracic Echocardiography Report | | (TTE) Demographics Patient Name CHRISTIANO Room Number 321 | | [facility] Patient Number [id number] Date of Study 10/06/2019 Visit | | Number [id number] Referring Physician ORVILLE FULTON Accession | | [id number] Transformer Inspector M[facility] STEPHENS [facility] Number Date of | | 1950 Interpreting ELADIA BLACK MD | | Physician Age 69 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(s) Nurse Gender Female | | Stress TechnicianProcedureType of Study TTE procedure:ECHO Complete.Procedure | | DateDate: 10/06/2019 Start: 02:51 PMStudy Location: [facility] Quality: Adequate | | visualizationIndications:Atrial fibrillation, unspecified [...] | | | + +---------+ + + POC Glucose (10/06/2019 11:30 AM PDT) + +---------+ + + + | Component | Value | Ref Range | Performed | Pathologist | | | | | At | Signature | + +---------+ + + + | Glucose, | 296 (H) | 70 - 109 mg/dL | [facility] | | | POC | | | [facility] | | [...] [address] | [place] | [phone] | | [facility] | | [address] | | | - LABORATORY | | | | + + + + + POC Glucose (10/06/2019 7:11 AM PDT) + +---------+ + + + | Component | Value | Ref Range | Performed | Pathologist | | | | | At | Signature | + +---------+ + + + | Glucose, | 317 (H) | 70 - 109 mg/dL | [facility] | | | POC | | | [facility] | | [...] + | [facility] | [address] | [place] | [phone] | | [facility] | | [address] | | | - LABORATORY | | [...] | | | | uIU/mL | [facility] | | | | [...] + | [facility] | [address] | [place] | [phone] | | [facility] | | [address] | | | - LABORATORY | | | | + + + + + Magnesium (10/06/2019 5:25 AM PDT) + +-------+ + + + | Component | Value | Ref Range | Performed | Pathologist | | | | | At | Signature | + +-------+ + + + | Magnesium | 1.9 | 1.6 - 2.6 mg/dL | [facility] | | | | | | [facility] | [address] | [place], [place] | [phone] | | [facility] | | [address] | | | - LABORATORY | | | | + + + + + CBC no Differential (10/06/2019 5:25 AM PDT) + + + + + + | Component | Value | Ref Range | Performed | Pathologist | | | | | At | Signature | + + + + + + | WBC | 7.2 | 4.0 - 11.0 K/uL | [facility] | | | | | [facility] | [facility] | [facility] | | | | | | CENTER - | | | | | | LABORATORY | | + + + + + + | RBC | 3.72 | 3.70 - 5.20 | [facility] | | | | | M/uL | [facility] | | | | | | MEDICAL | | | | | | CENTER - | | | | | | LABORATORY | | + + + + + + | Hemoglobin | 10.8 (L) | 11.5 - 16.0 | [facility] | | | | | g/dL | [facility] | | | | | | MEDICAL | | | | | | CENTER - | | | | | | LABORATORY | | + + + + + + | Hematocrit | 31.5 (L) | 34.0 - 47.0 % | [facility] | | | | | | [facility] | | | | | | MEDICAL | | | | | | CENTER - | | | | | | LABORATORY | | + + + + + + | MCV | 84.7 | 83.0 - 101.0 fL | [facility] | | | | | | [facility] | | | | | | MEDICAL | | | | | | CENTER - | | | | | | LABORATORY | | + + + + + + | MCH | 29.0 | 28.0 - 35.0 pg | [facility] | | | | | | [facility] | | | | | | MEDICAL | | | | | | CENTER - | | | | | | LABORATORY | | + + + + + + | MCHC | 34.3 | 32.0 - 36.0 | [facility] | | | | | g/dL | [facility] | | | | | | MEDICAL | | | | | | CENTER - | | | | | | LABORATORY | | + + + + + + | RDW-CV | 15.1 (H) | <15.0 % | [facility] | | | | | [facility] | | | | | | MEDICAL | | | | | | CENTER - | | | | | | LABORATORY | | + + + + + + | RDW-SD | 46.4 (H) | 35.1 - 46.3 fL | [facility] | | | | | [facility] | | | | | | MEDICAL | | | | | | CENTER - | | | | | | LABORATORY | | + + + + + + | Platelet | 231 | 140 - 440 K/uL | [facility] | | | Count | | | [facility] | | | | | | MEDICAL | | | | | | CENTER - | | | | | | LABORATORY | | + + + + + + | MPV | 9.2 | 6.5 - 12.4 fL | [facility] [...] | | | | WBCs | [facility] | | | | | | MEDICAL | | | | | | CENTER - | | | | | | LABORATORY | | + + + + + + | Absolute | 0.00 | 0.00 - 0.01 | [facility] | | | nRBC | | K/uL | [facility] | | | | [...] [address] | [place] | [phone] | | [facility] | | [address] | | | - LABORATORY | | | | + + + + + Basic Metabolic Panel (10/06/2019 5:25 AM PDT) + + + + + + | Component | Value | Ref Range | Performed | Pathologist | | | | | At | Signature | + + + + + + | Na | 138 | 136 - 145 | [facility] | [...] + + + + | Cl | 108 (H) | 98 - 107 mmol/L | [facility] | | | | [facility] | | | | | | [facility] | | | | | | CENTER - | | | | | | LABORATORY | | + + + + + + | CO2 | 32 (H) | 20 - 31 mmol/L | [facility] | | | | | [facility] | | | | | | MEDICAL | | | | | | CENTER - | | | | | | LABORATORY | | + + + + + + | Anion Gap | -2 (L)Comment: Rerun | 3 - 16 mmol/L | [facility] | | | | verified. | | [facility] | | | | | | MEDICAL | | | | | | CENTER - | | | | | | LABORATORY | | + + + + + + | Glucose | 275 (H) | 60 - 106 mg/dL | [facility] | | | | | [facility] | | | | | | [facility] | | | | | | CENTER - | | | | | | LABORATORY | | + + + + + + | BUN | 41 (H) | 9 - 23 mg/dL | [facility] | | | | | | [facility] | | | | | | [facility]ICAL | | | | | | CENTER - | | | | | | LABORATORY | | + + + + + + | Creatinine | 2.75 (H) | 0.55 - 1.02 | [facility] | | | | | mg/dL | [facility] | | | | | | MEDICAL | | | | | | CENTER - | | | | | | LABORATORY | | + + + + + + | eGFR if not | 17 (L)Comment: | >=60 | [facility] | | | | GLOMERULAR FILTRATION | mL/min/1.73m2 | [facility] | | | [place] | RATE,ESTIMATED | | MEDICAL | | | | mL/min/1.26i8Npcl than | | CENTER - | | [...] + + + + | Calcium | 10.0 | 8.7 - 10.4 | [facility] | | | | | mg/dL | [facility] | | | | | | MEDICAL | | | | | | CENTER - | | | | | | LABORATORY | | + + + + + + | BUN/Creatin | 14.9 | | [facility] | | | ine Ratio | | | [facility] | | [...] + | [facility] | [address] | [place] | [phone] | | [facility] | | [address] | | | - LABORATORY | | | | + + + + + Troponin I (10/06/2019 5:25 AM PDT) + + + + + + [...] | | | | | | [employer] | | | | | [...] [address] | [place] | [phone] | | [facility] | | [address] | | | - LABORATORY | | [...] 1,607 (H)Comment: New | <100 pg/mL | [facility] | | | | method in use as of | | [facility] | | | | July 22, 2018. [...] | + + + + + | [facility] | [address] | [place] | [phone] | | [facility] | | [address] | | | - LABORATORY | | | | + + + + + POC Glucose (10/05/2019 11:45 PM PDT) + +---------+ + + + | Component | Value | Ref Range | Performed | Pathologist | | | | | At | Signature | + +---------+ + + + | Glucose, | 304 (H) | 70 - 109 mg/dL | [facility] | | | POC | | | [facility] | | [...] | + + + + + | [facility] | [address] | [place], [place] | [phone] | | [facility] | | [address] | | | - LABORATORY | | [...] | | | | JOSEPHINE STEVENS MD ([id number]) | | | | | | on [...] | | | + +---------+ + + Basic Metabolic Panel (10/05/2019 10:26 PM PDT) + + + + + + | Component | Value | Ref Range | Performed | Pathologist | | | | | At | Signature | + + + + + + | Na | 138 | 136 - 145 | [facility] | | | | | mmol/L | [facility] | | | | | | MEDICAL | | | | | | CENTER - | | | | | | LABORATORY | | + + + + + + | K | 3.6 | 3.4 - 5.1 | [facility] | | | | | mmol/L | [facility] | | | | | | MEDICAL | | | | | | CENTER - | | | | | | LABORATORY | | + + + + + + | Cl | 107 | 98 - 107 mmol/L | [facility] | | | | | | [facility] | | | | | | MEDICAL | | | | | | CENTER - | | | | | | LABORATORY | | + + + + + + | CO2 | 30 | 20 - 31 mmol/L | [facility] | | | | | | [facility] | | | | | | MEDICAL | | | | | | CENTER - | | | | | | LABORATORY | | + + + + + + | Anion Gap | 1 (L) | 3 - 16 mmol/L | [facility] | | | | | | [facility] | | | | | | MEDICAL | | | | | | CENTER - | | | | | | LABORATORY | | + + + + + + | Glucose | 290 (H) | 60 - 106 mg/dL | [facility] | | | | | | [facility] | | | | | | [facility] | | | | | | CENTER - | | | | | | LABORATORY | | + + + + + + | BUN | 42 (H) | 9 - 23 mg/dL | [facility] | | | | | | [facility] | | | | | | MEDICAL | | | | | | CENTER - | | | | | | LABORATORY | | + + + + + + | Creatinine | 2.56 (H) | 0.55 - 1.02 | [facility] | | | | | mg/dL | [facility] | | | | | | MEDICAL | | | | | | CENTER - | | | | | | LABORATORY | | + + + + + + | eGFR if not | 19 (L)Comment: | >=60 | [facility] | | | | GLOMERULAR FILTRATION | mL/min/1.73m2 | [facility] | | | [place] | RATE,ESTIMATED | | MEDICAL | | | | mL/min/1.96x2Mucw than | | CENTER - | | [...] + + + + | Calcium | 10.5 (H) | 8.7 - 10.4 | [facility] | | | | | mg/dL | [facility] | | | | | | MEDICAL | | | | | | CENTER - | | | | | | LABORATORY | | + + + + + + | BUN/Creatin | 16.4 | | [facility] | | | ine Ratio | | | [facility] | | [...] [address] | [place] | [phone] | | [facility] | | [address] | | | - LABORATORY | | | | + + + + + Troponin I (10/05/2019 10:26 PM PDT) + + + + + [...] | | | | | | [employer] | | | | | [...] 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) | + + | Essential hypertension Unspecified essential hypertension | + + documented in this encounter Administered Medications + +--------+---------+------+------+------+ | Medication Order | MAR | Action | Dose | Rate | Site | | | Action | Date | | | | + +--------+---------+------+------+------+ + +---+ | acetaminophen (TYLENOL) tablet | | | 650 mg 650 mg, Oral, EVERY 4 | | | HOURS PRN, Pain, or fever >= 38.6 | | | C (101.5 F), Starting Tu | | | 10/05/19 at 2237 | | + +---+ | | | + +---+ + +-------+ +-------+---+---+ | aspirin EC tablet 81 mg 81 mg, | Given | 10/07/19 | 81 mg | | | | Oral, DAILY, First dose on Fri | | 20 8:12 | | | | | 10/06/19 at 0900, Do not cut or | | AM PDT | | | | | crush., | | | | | | + +-------+ +-------+---+---+ +-------+ +-------+---+---+ | Given | 10/06/19 | 81 mg | | | | | 20 8:33 | | | | | | AM PDT | | | | +-------+ +-------+---+---+ +---+---+ | | | +---+---+ + +-------+ + +---+---+ | calcium-vitamin D (OSCAL) 500 | Given | 10/07/19 | 1 tablet | | | | mg-200 units per tablet 1 tablet | | 20 8:12 | | | | | 1 tablet, Oral, DAILY, First | | AM PDT | | | | | dose on Fri10/06/19 at 0900 | | | | | | + +-------+ + +---+---+ +-------+ + +---+---+ | Given | 10/06/19 | 1 tablet | | | | | 20 8:33 | | | | | | AM PDT | | | | +-------+ + +---+---+ +---+---+ | | | +---+---+ + +-------+ +--------+---+---+ | cyanocobalamin (VITAMIN B-12) | Given | 10/07/19 | 1,000 | | | | tablet 1,000 mcg 1,000 mcg, | | 20 8:12 | mcg | | | | Oral, DAILY, First dose on Fri | | AM PDT | | | | | 10/06/19 at 0900 | | | | | | + +-------+ +--------+---+---+ +-------+ +--------+---+---+ | Given | 10/06/19 | 1,000 | | | | | 20 8:33 | mcg | | | | | AM PDT | | | | +-------+ +--------+---+---+ + +---+ | | | + +---+ | dextrose 10% (D10W) infusion | | | at 50 mL/hr, Intravenous, | | | CONTINUOUS PRN, hypoglycemia, | | | Starting 10/05/19 at 2238, | | | Start infusion if unable to | | | maintain blood glucose greater | | | than 70 mg/dL after two rounds of | | | hypoglycemia treatment. Recheck | | | blood glucose 30 minutes after | | | starting D10W then at least | | | hourly and PRN until it is | | | discontinued. Call provider to | | | discuss parameters for D10W | | | discontinuation., | | + +---+ | | | + +---+ | dextrose 50% injection 12.5-25 | | | g 12.5-25 g, Intravenous, PRN, | | | Low Blood Sugar, Starting Tue | | | 10/05/19 at 2238, For blood | | | glucose 50-69 mg/dl - give 12.5 g | | | For blood glucose less than 50 | | | mg/dl - give 25 g, | | + +---+ | | | + +---+ + +-------+ +-------+---+---+ | furosemide (LASIX) injection 80 | Given | 10/07/19 | 80 mg | | | | mg 80 mg, Intravenous, DAILY, | | 20 8:12 | | | | | First dose on Fri10/06/19 at 0045 | | AM PDT | | | | + +-------+ +-------+---+---+ +-------+ +-------+---+---+ | Given | 10/06/19 | 80 mg | | | | | 20 12:50 | | | | | | AM PDT | | | | +-------+ +-------+---+---+ +---+---+ | | | +---+---+ + +-------+ +--------+---+---+ | gabapentin (NEURONTIN) capsule | Given | 10/07/19 | 300 mg | | | | 300 mg 300 mg, Oral, 2 TIMES | | 20 8:12 | | | | | DAILY, First dose (after last | | AM PDT | | | | | modification) on Fri10/06/19 at | | | | | | | 0900 | | | | | | + +-------+ +--------+---+---+ +-------+ +--------+---+---+ | Given | 10/06/19 | 300 mg | | | | | 20 10:06 | | | | | | PM PDT | | | | +-------+ +--------+---+---+ | Given | 10/06/19 | 300 mg | | | | | 20 8:56 | | | | | | AM PDT | | | | +-------+ +--------+---+---+ +---+---+ | | | +---+---+ + +-------+ +--------+---+---+ | gabapentin (NEURONTIN) capsule | Given | 10/05/19 | 800 mg | | | | 800 mg 800 mg, Oral, 3 TIMES | | 20 11:48 | | | | | DAILY, First dose on Fri10/06/19 | | PM PDT | | | | | at 0000 | | | | | | + +-------+ +--------+---+---+ +---+---+ | | | +---+---+ + +-------+ +--------+---+ + | heparin 5,000 units/mL | Given | 10/07/19 | 5,000 | | Abdomen- | | injection 5,000 Units 5,000 | | 20 8:12 | Units | | LLQ | | Units, Subcutaneous, EVERY 12 | | AM PDT | | | | | HOURS (2 times per day), First | | | | | | | dose on Fri10/06/19 at 0900 | | | | | | + +-------+ +--------+---+ + +-------+ +--------+---+ + | Given | 10/06/19 | 5,000 | | Abdomen- | | | 20 10:06 | Units | | RLQ | | | PM PDT | | | | +-------+ +--------+---+ + | Given | 10/06/19 | 5,000 | | Abdomen- | | | 20 8:34 | Units | | LLQ | | | AM PDT | | | | +-------+ +--------+---+ + +---+---+ | | | +---+---+ + +-------+ + +---+ + | insulin glargine (LANTUS | Given | 10/06/19 | 30 Units | | Abdomen- | | SOLOSTAR) injection (pen) 30 | | 20 6:33 | | | RUQ | | Units 30 Units, Subcutaneous, | | PM PDT | | | | | DAILY EVENING, First dose on Fri | | | | | | | 10/06/19 at 1745, For subcutaneous | | | | | | | use only. Basal (long acting) | | | | | | | insulin., If NPO: Decrease dose, | | | | | | | by: 50% | | | | | | + +-------+ + +---+ + +---+---+ | | | +---+---+ + +-------+ +---------+---+ + | insulin lispro (humaLOG | Given | 10/06/19 | 6 Units | | Abdomen- | | KWIKPEN) injection (pen) 0-12 | | 20 12:21 | | | LLQ | | Units 0-12 Units, Subcutaneous, | | PM PDT | | | | | 4 TIMES DAILY WITH MEALS & | | | | | | | NIGHTLY, First dose on Fri | | | | | | | 10/05/19 at 2300, CORRECTION | | | | | | | SCALE: Blood Glucose (BG) < | | | | | | | 150: None BG | | | | | | | 150-200: DAY: 2 units. NIGHT: | | | | | | | 0 units BG 201-250: DAY: 4 | | | | | | | units. NIGHT: 2 units BG | | | | | | | 251-300: DAY: 6 units. NIGHT: | | | | | | | 4 units BG 301-350: DAY: 8 | | | | | | | units. NIGHT: 6 units BG | | | | | | | 351-400: DAY: 10 units. NIGHT: 8 | | | | | | | units BG > 400 : DAY: 12 | | | | | | | units. NIGHT: 10 units | | | | | | | AND CALL PROVIDER | | | | | | | , Use DAY DOSE for doses | | | | | | | scheduled: AC, NPO, Daytime | | | | | | | 0918-6559 Use NIGHT DOSE for | | | | | | | doses scheduled: HS, | | | | | | | Nighttime 3635-9821 If the BG is | | | | | | | not checked before the patient | | | | | | | starts eating, do not give | | | | | | | correction insulin., | | | | | | + +-------+ +---------+---+ + +-------+ +---------+---+ + | Given | 10/06/19 | 8 Units | | Abdomen- | | | 20 8:38 | | | RLQ | | | AM PDT | | | | +-------+ +---------+---+ + | Given | 10/05/19 | 6 Units | | Abdomen- | | | 20 11:46 | | | RUQ | | | PM PDT | | | | +-------+ +---------+---+ + +---+---+ | | | +---+---+ + +-------+ +---------+---+ + | insulin lispro (humaLOG | Given | 10/07/19 | 9 Units | | Abdomen- | | KWIKPEN) injection (pen) 0-18 | | 20 12:25 | | | LLQ | | Units 0-18 Units, Subcutaneous, | | PM PDT | | | | | 4 TIMES DAILY WITH MEALS & | | | | | | | NIGHTLY, First dose on Fri | | | | | | | 10/06/19 at 1715, CORRECTION | | | | | | | SCALE: Blood Glucose (BG) < | | | | | | | 150: None BG | | | | | | | 150-200: DAY: 3 units. NIGHT: | | | | | | | 0 units BG 201-250: DAY: 6 | | | | | | | units. NIGHT: 3 units BG | | | | | | | 251-300: DAY: 9 units. NIGHT: | | | | | | | 6 units BG 301-350: DAY: 12 | | | | | | | units. NIGHT: 9 units BG | | | | | | | 351-400: DAY: 15 units. NIGHT: | | | | | | | 12 units BG > 400 : DAY: 18 | | | | | | | units. NIGHT: 15 units | | | | | | | AND CALL PROVIDER | | | | | | | Use DAY DOSE for doses | | | | | | | scheduled: AC, NPO, Daytime | | | | | | | [id number] Use NIGHT DOSE for | | | | | | | doses scheduled: HS, | | | | | | | Nighttime [id number] If the BG is | | | | | | | not checked before the patient | | | | | | | starts eating, do not give | | | | | | | correction insulin., | | | | | | + +-------+ +---------+---+ + +-------+ +---------+---+ + | Given | 10/06/19 | 9 Units | | Abdomen- | | | 20 5:23 | | | LUQ | | | PM PDT | | | | +-------+ +---------+---+ + +---+---+ | | | +---+---+ + +-------+ +------+---+---+ | metoprolol tartrate (LOPRESSOR) | Given | 10/06/19 | 5 mg | | | | injection 5 mg 5 mg, | | 20 10:35 | | | | | Intravenous, ONCE, 10/06/19 at | | AM PDT | | | | | 1030, For 1 dose | | | | | | + +-------+ +------+---+---+ +---+---+ | | | +---+---+ + +-------+ +-------+---+---+ | metoprolol tartrate (LOPRESSOR) | Given | 10/06/19 | 25 mg | | | | tablet 25 mg 25 mg, Oral, 2 | | 20 8:34 | | | | | TIMES DAILY, First dose on Fri | | AM PDT | | | | | 10/06/19 at 0900 | | | | | | + +-------+ +-------+---+---+ +---+---+ | | | +---+---+ + +-------+ +-------+---+---+ | metoprolol tartrate (LOPRESSOR) | Given | 10/07/19 | 25 mg | | | | tablet 25 mg 25 mg, Oral, 3 | | 20 8:12 | | | | | TIMES DAILY, First dose (after | | AM PDT | | | | | last modification) on Fri10/06/19 | | | | | | | at 1645 | | | | | | + +-------+ +-------+---+---+ +-------+ +-------+---+---+ | Given | 10/06/19 | 25 mg | | | | | 20 10:06 | | | | | | PM PDT | | | | +-------+ +-------+---+---+ | Given | 10/06/19 | 25 mg | | | | | 20 5:16 | | | | | | PM PDT | | | | +-------+ +-------+---+---+ + +---+ | | | + +---+ | nicotine (NICODERM) 21 mg/24 hr | | | 1 patch 1 patch, Transdermal, | | | DAILY PRN, Nicotine Craving, | | | Starting [facility] 10/05/19 at 2250 | | + +---+ | | | + +---+ | ondansetron (ZOFRAN) injection | | | 4 mg 4 mg, Intravenous, EVERY 6 | | | HOURS PRN, Nausea, Vomiting, | | | Starting [facility] 10/05/19 at 2237, | | | First line agent, | | + +---+ | | | + +---+ | pharmacy consult - other | | | medications/reasons PHARMACY | | | CONSULT, Starting [facility] [facility] 10/07/19 at | | | 1415, Pharmacy to consult for | | | another reason? teach pt | | | regarding coumadin and metoprolol | | | both being new. pt awaiting this | | | then to discharge to home | | + +---+ | | | + +---+ + +-------+ +--------+---+---+ | potassium bicarb-citric acid | Given | 10/05/19 | 40 mEq | | | | (EFFER-K) effervescent tablet 40 | | 20 11:48 | | | | | mEq 40 mEq, Oral, ONCE, Tue | | PM PDT | | | | | 10/05/19 at 2330, For 1 dose, | | | | | | | Dissolve 10 mEq tab in 58-85 mL | | | | | | | water. Dissolve 20 mEq tab in | | | | | | | 85-115 mL water., | | | | | | + +-------+ +--------+---+---+ +---+---+ | | | +---+---+ + +-------+ + +---+---+ | pramipexole (MIRAPEX) tablet | Given | 10/07/19 | 0.125 mg | | | | 0.125 mg 0.125 mg, Oral, DAILY, | | 20 8:12 | | | | | First dose on Fri10/06/19 at 1730 | | AM PDT | | | | + +-------+ + +---+---+ +-------+ + +---+---+ | Given | 10/06/19 | 0.125 mg | | | | | 20 5:16 | | | | | | PM PDT | | | | +-------+ + +---+---+ +---+---+ | | | +---+---+ + +-------+ +-------+---+---+ | rosuvastatin (CRESTOR) tablet | Given | 10/06/19 | 20 mg | | | | 20 mg 20 mg, Oral, NIGHTLY, | | 20 10:07 | | | | | First dose on Fri10/05/19 at 2330 | | PM PDT | | | | + +-------+ +-------+---+---+ +-------+ +-------+---+---+ | Given | 10/05/19 | 20 mg | | | | | 20 11:49 | | | | | | PM PDT | | | | +-------+ +-------+---+---+ +---+---+ | | | +---+---+ + +-------+ +------+---+---+ | warfarin (COUMADIN) tablet 5 mg | Given | 10/07/19 | 5 mg | | | | 5 mg, Oral, Once - Warfarin, | | 20 3:23 | | | | | First dose on [facility] 10/07/19 at | | PM PDT | | | | | 1530, For 1 dose, Reproductive | | | | | | | Risk: Use appropriate handling | | | | | | | precautions. Drug education | | | | | | | required., | | | | | | + +-------+ +------+---+---+ +---+---+ | | | +---+---+ documented in this encounter
--- OUTSIDE RECORDS SUMMARY | ~2019-11-25 | XMS | Encounter Summary ---
Demographics + + + | Address | [address] | | | [place] [address] | + + + | Home Phone | | + + + | Preferred Language | Unknown | + + + | Marital Status | Unknown | + + + | Zoroastrianism Affiliation | Unknown | + + + | Race | Unknown | + + + | Ethnic Group | Unknown | + + + Author + + + | Author | [facility] | | | and [place] | + + + | Organization | [facility] | | | [...] Team Providers + +------+ + | Care Administrative Secretary Name | Role | Phone | + +------+ + | Benny James MD | PCP | | + +------+ + Encounter Details +--------+ + + + + | Date | Type | Department | Care Team | Description | +--------+ + + + + | 07/27/ | Orders Only | [facility] | Art, | | | 2019 | | NEPHROLOGY [place] | Naomi Seo | | | | | [address] [place] | Certified Professional Ergonomist | | | | | [address] [place], [place] | | | | | | [address] | | | | | | [phone] | | | +--------+ + + + [...] 1.001 - 1.030 | | | | [place], | | | | | | Urine [...]
--- OUTSIDE RECORDS SUMMARY | ~2019-11-25 | XMS | Encounter Summary ---
Demographics + + + | Address | [address] | | | [place] [address] | + + + | Home Phone | | + + + | Preferred Language | Unknown | + + + | Marital Status | Unknown | + + + | Sabianist Affiliation | Unknown | + + + | Race | Unknown | + + + | Ethnic Group | Unknown | + + + Author + + + | Author | [facility] | | | and [place] | + + + | Organization | [facility] | | | [...] Providers + +------+ + | Care Computer Systems Hardware Analyst Name | Role | Phone | [...] | | | [address] | [facility] [address] | | | | | [place], [place] | [phone] | | | | | [address] | | | | | | [phone] | | | +--------+ + + + [...]
--- OUTSIDE RECORDS SUMMARY | ~2019-11-25 | XMS | Encounter Summary ---
Demographics + + + | Address | [address] | | | [place] [address] | + + + | Home Phone | | + + + | Preferred Language | Unknown | + + + | Marital Status | Unknown | + + + | Denominational Affiliation | Unknown | + + + [...] Team Providers + +------+ + | Care Mica Machine Operator Name | Role | Phone [...] | Encounter | CONVERSION | MD Bethanie [address] | | | | | [address] | [address] | | | | | [address] | [facility] [address] | | | | | [place], [place] | [phone] | | | | | [address] | | | | | | [phone] | | | +--------+ + + + [...]
--- OUTSIDE RECORDS SUMMARY | ~2019-11-25 | XMS | Encounter Summary ---
Demographics + + + | Address | [address] | | | [place] [address] | + + + | Home Phone | | + + + | Preferred Language | Unknown | + + + | Marital Status | Unknown | + + + | Restoration Affiliation | Unknown | + + + [...] Team Providers + +------+ + | Care Cash Accounting Clerk Name | Role | Phone | + +------+ + PCP | Unavailable | + +------+ + Encounter Details +--------+ + + + + | Date | Type | Department | Care Team | Description | +--------+ + + + + | 07/27/ | Hospital | [facility] | Yon Jc MD | | | 2011 | Encounter | HOSPITAL EMERGENCY | | | | | | [address] | | | | | | [address] [place] | | | | | | [address] | | | | | | [phone] | | | +--------+ + + + [...]
--- OUTSIDE RECORDS SUMMARY | ~2019-11-25 | XMS | Encounter Summary ---
Demographics + + + | Address | [address] | | | [place] [address] | + + + | Home Phone [...] Providers + +------+ + | Care Oil And Gas Lease Pumper Name | Role | Phone | + [...] | | | | stage 4 | [place] | [address] [place] [address] | | | | | (severe) | [address] | [place], [place] | | | | | (HCC) | [place] | [address] | | | | | | [address] | Phone: | | | | | | Phone: | [phone] | | | | | | [phone] | Fax: | | | | | | Fax: | [phone] | | | | | | [phone] | | + +--------+ + + + + Encounter Details +--------+---------+ + + + | Date | Type | Department | Care Team | Description | +--------+---------+ + + + | 08/01/ | Office | [facility] | Matty Bingham MD | CKD (chronic kidney | | 2020 | Visit | NEPHROLOGY [place] | [address] [place] | disease) stage 4, | | | | [address] | [address] [facility] [place] | GFR 15-29 ml/min | | | | [address] [place] [address] | [id number] | (HCC) (Primary Dx); | | | | [place], [place] | | 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 The most likely pathology [...] intact PTH, uric acid, urinalysis, Urine total gcnynav-ih-jocp tinine ratio before she comes back in [...] stage 4, GFR 15-29 ml/min ([facility]) - Primary Chronic kidney | | disease, [...]
--- OUTSIDE RECORDS SUMMARY | ~2019-11-25 | XMS | Encounter Summary ---
Demographics + + + | Address | [address] | | | [place] [address] | + + + | Home Phone [...] + + + | Author | [facility] | | | and [place] | + + + | Organization | [facility] | | [...] Team Providers + +------+ + | Care Party Plan Selling Distributor Name | Role | Phone | + +------+ + PCP | Unavailable | + +------+ + Encounter Details +--------+ + + + + | Date | Type | Department | Care Team | Description | +--------+ + + + + | 11/28/ | Hospital | [facility] | Maximilian Benoit | | | 2008 | Encounter | CONVERSION | MD [address] | | | | | [address] | [address] | | | | | [address] | [place] [address] | | | | | [place], [place] | [phone] | | | | | [address] | | | | | | [phone] | | | +--------+ + + + [...]
--- OUTSIDE RECORDS SUMMARY | ~2019-11-25 | XMS | Encounter Summary ---
Demographics + + + | Address | [address] | | | [place] [address] | + + + | Home Phone [...] Team Providers + +------+ + | Care Business Performance Specialist Name | Role | Phone | [...] [address] | | | | | | [place], [place] | | | | | | [address] | | | | | | [phone] | | | +--------+ + + + [...]
--- OUTSIDE RECORDS SUMMARY | ~2019-11-25 | XMS | Encounter Summary ---
Demographics + + + | Address | [address] | | | [place] [address] | + + + | Home Phone [...] Team Providers + +------+ + | Care Speech Language Pathologist Assistant Name | Role | Phone | + +------+ + | Sharyn Oliva | PCP | | + +------+ + Encounter Details +--------+ + + + + | Date | Type | Department | Care Team | Description | +--------+ + + + + | 09/09/ | Lab | [facility] | Sharyn Oliva | Age-related | | 2018 | Requisition | MED CTR LABORATORY | [address] | osteoporosis with | | | | [address] | [place] | current pathological | | | | [place] | [place] | fracture of right | | | | [address] | [address] | forearm | | | | [phone] | [phone] | | | | | | | [...] | Test ordered under wrong submitter | [facility] | | | [facility] | | | [facility] | | | - LABORATORY | + + + + + + + + | Performing | Address | City/State/Zipcode | Phone Number | | Organization | | | | + + + + + | [facility] | [address] | [place] | [phone] | | [facility] | | [address] | | | - LABORATORY | | | | + + + + + documented in this encounter Visit Diagnoses + + | Diagnosis | + + | Age-related osteoporosis with current pathological fracture of right forearm Senile | | osteoporosis | + + documented in this encounter"
--- OUTSIDE RECORDS SUMMARY | ~2019-11-25 | XMS | Encounter Summary ---
Demographics + + + | Address | [address] | | | [place] [address] | + + + | Home Phone | | + + + | Preferred Language | Unknown | + + + | Marital Status | Unknown | + + + | Pentecostal Affiliation | Unknown | + + + [...] Team Providers + +------+ + | Care Draw Frame Operator Name | Role | Phone | + +------+ + | Lizet Oliva | PCP | | + +------+ + Encounter Details +--------+ + + + + | Date | Type | Department | Care Team | Description | +--------+ + + + + | 11/24/ | Imaging | [facility] | Provider, | Arrived | | 2020 | Exam | MED CTR EXTERNAL | MD [address] | | | | | IMAGING [address] | [address] | | | | | [address] | [place] [address] | | | | | [place] [address] | | | | | | [phone] | | | +--------+ + + + [...] + + documented in this encounter Results XR [place] Right 1 - 2 Vw (11/13/2019 12:05 [...]
--- OUTSIDE RECORDS SUMMARY | ~2019-11-25 | XMS | Encounter Summary ---
Demographics + + + | Address | [address] | | | [place] [address] | + + + | Home Phone [...] Team Providers + +------+ + | Care Reference Data Expert Name | Role | Phone | + [...] [address] | | | | | | [place], [place] | | | | | | [address] | | | | | | [phone] | | | +--------+ + + + [...]
--- OUTSIDE RECORDS SUMMARY | ~2019-11-25 | XMS | Encounter Summary ---
Demographics + + + | Address | [address] | | | [place] [address] | + + + | Home Phone [...] Team Providers + +------+ + | Care Cleaning Custodian Name | Role | Phone | + +------+ + PCP | Unavailable | + +------+ + Encounter Details +--------+ + + + + | Date | Type | Department | Care Team | Description | +--------+ + + + + | 01/17/ | Hospital | [facility] | Maximilian Benoit | | | 2008 | Encounter | HOSPITAL XRAY [address] | [address] | | | | | [address] | [address] | | | | | [address] [place] | [place] [address] | | | | | [address] | [phone] | | | | | [phone] | | | +--------+ + + + [...]
--- OUTSIDE RECORDS SUMMARY | ~2019-11-25 | XMS | Encounter Summary ---
Demographics + + + | Address | [address] | | | [place] [address] | + + + | Home Phone | | + + + | Preferred Language | Unknown | + + + | Marital Status | Unknown | + + + | Jewish Affiliation | Unknown | + + + | Race | Unknown | + + + | Ethnic Group | Unknown | + + + Author + + + | Author | [facility] | | | and [place] | + + + | Organization | [facility] | | [...] Team Providers + +------+ + | Care Copy Cutter Name | Role | Phone | [...] + + | 11/04/ | Documentati | [facility] | [place], | Results (11/01/19) | | 2020 | on | NEPHROLOGY [place] | Naomi Seo | | | | | [address] | [place] | | | | | [address] [facility] [place] | | | | | | [address] | | | | | | [phone] | | | +--------+ + + + [...] + + | Blood | + + [place] and Lambda Light Chain Ratio (11/01/2019) + +-------+ + + + | Component | Value | Ref Range | Performed | Pathologist | | | | | At | Signature | + +-------+ + + + | [place] [facility] | 63.73 | | | | + +-------+ + + + | [facility] | 28.44 | | | | | [place] | | | | | + +-------+ + + + | [place] | 2.24 | | | | | [...] | 1.010 | | | | | [place], | | | | | | Urine [...]
--- OUTSIDE RECORDS SUMMARY | ~2019-11-25 | XMS | Encounter Summary ---
Demographics + + + | Address | [address] | | | [place] [address] | + + + | Home Phone [...] Team Providers + +------+ + | Care Head Porter Baggage Name | Role | Phone | + +------+ + | Lizet Oliva | PCP | | + +------+ + Reason for Visit +--------+ + | Reason | Comments | +--------+ + | Other | Signed letter sent to [facility] for patients PCP confirmation received | +--------+ + Encounter Details +--------+ + + + + | Date | Type | Department | Care Team | Description | +--------+ + + + + | 09/01/ | Documentati | [facility] | Art, | Other (Signed letter | | 2020 | on | NEPHROLOGY [place] | Naomi Seo | sent to [facility] for | | | | [address] | Quality Process Lead | patients PCP | | | | [address] | | confirmation | | | | [place], [place] | | received) | | | | [address] | | | | | | [phone] | | | +--------+ + + + [...]
--- OUTSIDE RECORDS SUMMARY | ~2019-11-25 | XMS | Encounter Summary ---
Demographics + + + | Address | [address] | | | [place] [address] | + + + | Home Phone [...] Team Providers + +------+ + | Care Hub Lead Name | Role | Phone | + [...] | | | | [address] | [place] [address] | | | | | [place], [place] | [phone] | | | | | [address] | | | | | | [phone] | | | +--------+ + + + [...]
--- OUTSIDE RECORDS SUMMARY | ~2019-11-25 | XMS | Encounter Summary ---
Demographics + + + | Address | [address] | | | [place] [address] | + + + | Home Phone [...] Team Providers + +------+ + | Care Magazine Publisher Name | Role | Phone | + +------+ + | Benny James MD | PCP | | + +------+ + Encounter Details +--------+ + + + + | Date | Type | Department | Care Team | Description | +--------+ + + + + | 07/23/ | Orders Only | [facility] | Matty Bingham MD | Chronic kidney | | 2020 | | NEPHROLOGY [place] | [address] [place] | disease, stage IV | | | | [address] [place] | [address] [facility] [place] | (severe) (HCC) | | | | [address] [place], [place] | [address] | (Primary Dx) | | | | [address] | | | | | | [phone] | | | +--------+ + + + [...] Expires: | | | | | (severe) ([facility]) | 07/23/2020 | + +------+--------+ + + | Urinalysis With | Lab | Routin | Chronic kidney | Expected: | | Microscopic | | e | disease, stage IV | 07/26/2019, Expires: | | | | | (severe) ([facility]) | 07/23/2020 | + +------+--------+ + + | CBC with | Lab | Routin | Chronic kidney | Expected: | | Differential | | e | disease, stage IV | 07/26/2019, Expires: | | | | | (severe) ([facility]) | 07/23/2020 | + +------+--------+ + + documented as of this encounter Visit Diagnoses + + | Diagnosis | + + | Chronic kidney disease, stage IV (severe) (HCC) - Primary Chronic kidney disease, | | Stage IV (severe) | + + documented in this encounter"
--- OUTSIDE RECORDS SUMMARY | ~2019-11-25 | XMS | Encounter Summary ---
Demographics + + + | Address | [address] | | | [place] [address] | + + + | Home Phone [...] + + + | Author | [facility] | | | and [place] | + + + | Organization | [facility] | | [...] Team Providers + +------+ + | Care Buffet Manager Name | Role | Phone | + +------+ + | eBnny James MD | PCP | | + +------+ + Reason for Visit +---------+ + | Reason | Comments | +---------+ + | Results | 07/28/19 | +---------+ + Encounter Details +--------+ + + + + | Date | Type | Department | Care Team | Description | +--------+ + + + + | 07/28/ | Documentati | [facility] | [place], | Results (07/28/19) | | 2020 | on | NEPHROLOGY [place] | Naomi Seo | | | | | [address] | [place] [place] | | | | | [address] [facility] [place] | | | | | | [address] | | | | | | [phone] | | | +--------+ + + + [...] 1.001 - 1.030 | | | | [place], | | | | | | Urine [...]
--- OUTSIDE RECORDS SUMMARY | ~2019-11-25 | XMS | Encounter Summary ---
Demographics + + + | Address | [address] | | | [place] [address] | + + + | Home Phone | | + + + | Preferred Language | Unknown | + + + | Marital Status | Unknown | + + + | Gnosticist Affiliation | Unknown | + + + | Race | Unknown | + + + | Ethnic Group | Unknown | + + + Author + + + | Author | [facility] | | | and [place] | + + + | Organization | [facility] | | [...] Team Providers + +------+ + | Care Jet Aircraft Servicer Name | Role | Phone | + [address] | | | | | | [place], [place] | | | | | | [address] | | | | | | [phone] | | | +--------+ + + + [...]
--- OUTSIDE RECORDS SUMMARY | ~2019-11-25 | XMS | Encounter Summary ---
Demographics + + + | Address | [address] | | | [place] [address] | + + + | Home Phone [...] Team Providers + +------+ + | Care Parole Board Member Name | Role | Phone | + [...] | | | [address] | [place] [address] | | | | | [place] [address] | | | | | | [phone] | | | +--------+ + + + [...]
--- OUTSIDE RECORDS SUMMARY | ~2019-11-25 | XMS | Encounter Summary ---
Demographics + + + | Address | [address] | | | [place] [address] | + + + | Home Phone | | + + + | Preferred Language | Unknown | + + + | Marital Status | Unknown | + + + | Rastafari Affiliation | Unknown | + + + | Race | Unknown | + + + | Ethnic Group | Unknown | + + + Author + + + | Author | [facility] | | | and [place] | + + + | Organization | [facility] | | | and [...] Providers + +------+ + | Care Home Manager Name | Role | Phone | + +------+ + PCP | Unavailable | + +------+ + Encounter Details +--------+ + + + + | Date | Type | Department | Care Team | Description | +--------+ + + + + | 04/28/ | Hospital | [facility] | Niharika Hsieh | | | 2006 | Encounter | HOSPITAL EMERGENCY | MD [address] | | | | | [place] [address] [place], | | | | | [address] [place], [place] | [place] [address] | | | | | [address] | [phone] | | | | | [phone] | | | +--------+ + + + [...]
--- OUTSIDE RECORDS SUMMARY | ~2019-11-25 | XMS | Clinical Summary ---
Demographics + + + | Address | [address] | | | [place] [address] | + + + | Home Phone [...] Team Providers + +------+ + | Care Seafood Harvester Name | Role | Phone | [...] | 2 times daily. | | | 20 | | e | [...] | | | | | | | xcal171-993= 2 | | | | | | | | -256= 3 | | | | | | | | gywhv950-258= 4 | | | | | | [...] | mouth Daily. | tablet | | /20 | | e | | tablet | | | | 20 | | | + + + +---------+------+------+-------+ | rivaroxaban | Take 1 tablet by | 90 | 3 | 06/1 | | Activ | | (XARELTO) 20 mg | mouth Daily (with | tablet | | /20 | | e | | tablet | dinner). | | | 20 | | | + + + +---------+------+------+-------+ | gabapentin | Take 300 mg by mouth | | 0 | | 06/0 | Disco | | (NEURONTIN) 300 mg | 2 times daily. | | | | 02/12 | ntinu | | capsule | | [...] daily | tablet | | / | 9/20 | ntinu | | 25 mg tablet [...] mouth every evening. | tablet | | / | 9/20 | ntinu | | tablet [...] | Imaging | Radiology | Provider, | Arrived | | 2019 | Exam | | MD Madina | | +--------+ + + + + | 11/24/ | Imaging | Radiology | Provider, | Arrived | | 2019 | Exam | | HistoricalMD | | +--------+ + + + + | 11/04/ | Documentati | Nephrology | Art, | Results (11/01/19) | | 2020 | on | | Naomi Seo | | | | | | Housekeeping Staff | | +--------+ + + + + | 11/03/ | Telephone | Cardiology | Graham Black | Other (records sent | | 2019 | | | MD Anup | - [facility]) | +--------+ + + + + [...] | | MD Anup | with RVR ([facility]) | | | | | | (Primary [...] - | Encounter | | | fibrillation ([facility]); | | | | | | Atrial fibrillation | | 10/06/ | | | | with RVR ([facility]); | | 2019 | | | | Acute heart failure | | | | | | with preserved | | | | | | ejection fraction | | | | | | ([facility]); CKD (chronic | | | | | | kidney disease) | | | | | | stage 4, GFR 15-29 | | | | | | ml/min ([facility]); | | | | | | Tobacco abuse | +--------+ + + + + | 09/01/ | Documentati | Nephrology | Art | Other (Signed letter | | 2019 | on | | Naomi Seo | sent to [place] for | | | | | Housekeeping Staff | patients PCP | | | | | | confirmation | | | | | | received) | +--------+ + + + + | 09/01/ | Telephone | Nephrology | Matty Bingham MD | Pain | | 2020 | | | | | +--------+ + [...] | | TRIVALENT(PED/ADOL/A | | | | DULT) PSKT | | | + + + + [...] | | | RN: | | | [id number] | | | [id number] | | | riteri | | | [...] | | | St. | | | [place] | | | y | | | [...] | | | St. | | | [place] | | | y H. | | [...] | | | St. | | | [place] | | | y H. | | | [place] | | | [place] | | | Emerge | | | ncy | | | Chief | | | Compla | | | int: | | | SOB | | | May | | | 12, | | | 2020 | | | [facility] | [facility] | | | [place] | | | y H. | | [...] | | | St. | | | [place] | | | y H. | | [...] | | | St. | | | [place] | | | y H. | | [...] | | | St. | | | [place] | | | y H. | | [...] | | | St. | | | [place] | | | y H. | | [...] | | | St. | | | [place] | | | y H. | | [...] | | | St. | | | [place] | | | y H. | | [...] | | | [place], | | | [id number] | | | [id number] | | | [...] | | | otify/ | | | [id number] | | | [id number] | | | [id number] | | | -a9aa- | | | [id number] | | | [id number] | | | [...] | | | | | | RVR ([facility]) | | + +--------+ + + + [...] + + from Last 3 Months Results XR Knee Right 1 - 2 Vw [...] MD | | | | | | ([id number]) on 11/04/2019 | | | | | [...] + + + CBC with Manual Differential (11/01/2019) [...] + + | Blood | + + [place] and Lambda Light Chain Ratio (11/01/2019) + +-------+ + + + | Component | Value | Ref Range | Performed | Pathologist | | | | | At | Signature | + +-------+ + + + | [facility] | 63.73 | | | | + +-------+ + + + | LAMBDA | 28.44 | | | | | LIGHT [place]AIN | | | | | + +-------+ + + + | [place]/Lambd | 2.24 | | | | | [...] | 1.010 | | | | | [place], | | | | | | Urine [...] ST. | [address] | [place] | [phone] | | [facility] | | [address] | | | - LABORATORY | | [...] [address] | [place] | [phone] | | [facility] | | [address] | | | - LABORATORY | | [...] [facility] | | | | | | [facility] | | | | | | MEDICAL | | | | | | CENTER - | | | | | | LABORATORY | | + + + + + + | RBC | 3.79 | 3.70 - 5.20 | [facility] | | | | | M/uL | [facility] | | | | | [...] [address] | [place] | [phone] | | [facility] | | [address] | | | - LABORATORY | | [...] [facility] | | | | | | [facility] | | | | | [...] [address] | [place] | [phone] | | [facility] | | [address] | | | - LABORATORY | | [...] (H) | 9 - 23 mg/dL | [facility] | | | | | | [facility] | | | [facility] | MEDICAL | | | | | | CENTER - | | | | | | LABORATORY | | + + + + + + | Creatinine | 2.68 (H) | 0.55 - 1.02 | [place] | | | | | mg/dL | [facility] | | | | | | MEDICAL | | | | | | CENTER - | | | | | | LABORATORY | | + + + + + + | eGFR if not | 18 (L)Comment: | >=60 | [place] | | | | GLOMERULAR FILTRATION | mL/min/1.73m2 | [facility] | | | EQUATORIAL GUINEAN | RATE,ESTIMATED | | MEDICAL | | | | mL/min/1.15b2Fpiw than | | CENTER - | | [...] + | [facility] | [address] | [place] | [phone] | | [facility] | | [address] | | | - LABORATORY | | [...] | | | | | | n [place] | | | | | + +--------+ [...] (TTE) Demographics Patient Name | | | TAUFEN-OXANA Room Number 321 | | | LIZET Patient Number [id number] Date of Study | | | 10/06/2019 Visit Number [id number] Referring | | | Physician ORVILLE FULTON | | | Photography Spotter MARY STEPHENS, [facility] Number Date of | | | 1950 Interpreting ANUP BLACK MD | | | Physician Age | | | 69 year(s) Nurse Gender Female | | | Stress Environmental Engineering Intern Procedure Type of Study TTE | | | procedure:ECHO Complete. Procedure DateDate: 10/06/2019 Start: 02:51 | | | PM Study Location: [facility] Quality: Adequate visualization | | | [...] Report | | (TTE) Demographics Patient Name [facility] Room Number 321 | | LIZET Patient Number [id number] Date of Study 10/06/2019 Visit | | Number [id number] Referring Physician ORVILLE UFLTON Accession | | [id number] Photography Spotter MARY STEPHENS RDCS Number Date of | [...] recent of 2 results within the time perio d is included. + + + + + [...] | | | | | | [employer] | | | | | [...] + | [facility] | [address] | [place] | [phone] | | [facility] | | [address] | | | - LABORATORY | | [...] [address] | [place] | [phone] | | [facility] | | [address] | | | - LABORATORY | | [...] method in use as of | | Hailey [place] | | | | July 22, 2018. [...] + | [address] | [address] | [place] | [phone] | | [facility] | | [address] | | | - LABORATORY | | [...] +---------+--------+ | [employer] | [place] | [id number] | 08/02/19 | | | Indemn | | | COMMUN | | 20-Pre | | | ity | | | ITY | | sent | | | | | | CARE | | | | | | + +--------+ +--------+ +---------+--------+ | [employer] | [place] | [id number] | 08/02/19 | | | Indemn | | | NS | | 20-Pre | | | ity | | | ADMIN | | sent | | | | | | [place] | | | | | | | | [place] | | | | | | + +--------+ +--------+ +---------+--------+ | [employer] | [place] | [id number] | | | | Indemn | | | NS | | 006-Pr | | | ity | | | ADMIN | | esent | | | | | | [place] | | | | | | | | [place] | | | | | | + +--------+ +--------+ +---------+--------+ | [employer] | [place] | [id number] | | | | Indemn | | | COMMUN | | 016-Pr | | | ity | | | ITY | | esent | | | | | | CARE | | | | | | + +--------+ +--------+ +---------+--------+ | MEDICARE | MEDICA | [id number] | | [phone] | | Medica | [...] [place] | | | 7 (Home) | [address] | + +--------+ +--------+ + + | Lizet Mcneil | Person | Self [birth year] | [address] | | [place] | al/Fam | | 1951 | [phone] | [address] [place], [place] | | | ricardo | | | 7 (Home) | [address] | + +--------+ +--------+ + + Advance Directives + + + + + | Type | Date Recorded | Patient | Explanation | | | | Perishable Fruit Inspector | | + + + + + | Power of | | | | | Masticator | | | | + + + [...]
--- OUTSIDE RECORDS SUMMARY | ~2019-11-25 | XMS | Encounter Summary ---
Demographics + + + | Address | [address] | | | [place] [address] | + + + | Home Phone [...] Author + + + | Author | [facility] | | | and [place] | + + + | Organization | [facility] | | | and [...] Team Providers + +------+ + | Care Petroleum Refining Equipment Operator Name | Role | Phone | [...] + + | 09/01/ | Telephone | [facility] | Matty Bingham MD | Pain | | 2020 | | NEPHROLOGY [place] | [address] [place] | | | | | [address] [place] | [address] [place], [place] | | | | | [address] [place], [place] | [address] | | | | | [address] | | | | | | [phone] | | | +--------+ + + + [...] chronic kidney disease (CKD). I called back [phone] ext [phone] & spoke with the RN in charge [...] anage pain/neuropathy medications. Best, MD JONATHAN Short [facility] documented in this enco unter Plan of Treatment Not on filedocumented as of this encounter Visit Diagnoses Not on filedocumented in this encounter"
--- OUTSIDE RECORDS SUMMARY | ~2019-11-25 | XMS | Encounter Summary ---
Demographics + + + | Address | [address] | | | [place] [address] | + + + | Home Phone [...] Team Providers + +------+ + | Care Roentgenology Teacher Name | Role | Phone | [...] + + | 11/01/ | Emergency | [facility] | Naeem Bruce MD | Post concussive | | 2019 | | [facility] | [address] | syndrome (Primary | | | | CENTER [address] | [place] | Dx); Carotid artery | | | | [place] | [address] | calcification, | | | | [address] | | bilateral | | | | [phone] | | | +--------+ + + + [...] attachments cannot be sent through Care Everywhere.Concussion, Research Anthropologist ing with (Slovak)Carotid Artery Disease (Slovak)documented in this encounter Medications at Time of [...] | | | | | | | gqpx543-540= 2 | | | | | | | rlvyx589-875= 3 | | | | | | | -075= 4 | | | | | | | units>350= 5 units | | | | | + + + +---------+ + + | insulin glargine | Inject 25 Units | 3 mL | 0 | / | | | (LANTUS SOLOSTAR) | under [...] migh t be different from the original. [facility] Lizet Mcneil Emergency Department Encounter Note [address] [place] [address] PCP:JOEL Salvador [phone] CHIEF COMPLAINT: Chief Complaint [...] Medical History: Diagnosis Date A-fib ([facility]) CKD (chronic kidney disease) stage 4, GFR 15-29 ml/min ([facility]) 07/28/2019 Diabetes mellitus ([facility]) 07/28/2019 Hypertension 07/28/2019 Nicotine dependence 07/28/2019 Past Surgical History: Procedure Laterality Date HYSTERECTOMY CURRENT MEDICATIONS SUPERVISOR SCENIC ARTS Home Medications Medication Sig albuterol 5 mg/mL [...] were reviewed along with EMS notes and [facility] record s if applicable. (See chart for [...] Contact information: [address] [place] [address] [facility]. Specialty: Emergency Medicine Why: If symptoms worsen Contact information: [address] [place] [address] Naeem Bruce MD 11/02/19 1653 documented in this encou nter Plan of [...] | | | RN: | | | [id number] | | | [id number] | | | riteri | | | [...] | | | St. | | | [place] | | | y | | | [...] | | | St. | | | [place] | | | y H. | | [...] | | | St. | | | [place] | | | y H. | | | [place] | | | [place] | | | Emerge | | | ncy | | | Chief | | | Compla | | | int: | | | SOB | | | May | | | 12, | | | 2020 | | | [facility] | | | [facility] | | | [place] | | | y H. | | [...] | | | St. | | | [place] | | | y H. | | [...] | | | St. | | | [place] | | | y H. | | [...] | | | St. | | | [place] | | | y H. | | [...] | | | St. | | | [place] | | | y H. | | [...] | | | St. | | | [place] | | | y H. | | [...] | | | St. | | | [place] | | | y H. | | [...] | | | [place], | | | [id number] | | | [id number] | | | [...] | | | otify/ | | | [id number] | | | [id number] | | | [id number] | | | -a9aa- | | | [id number] | | | [id number] | | | [...]
--- OUTSIDE RECORDS SUMMARY | ~2019-11-25 | XMS | Encounter Summary ---
Demographics + + + | Address | [address] | | | [place] [address] | + + + | Home Phone [...] Team Providers + +------+ + | Care Medicaid Analyst Name | Role | Phone | [...] | Encounter | CONVERSION | MD Bethanie [address] | | | | | [address] | [address] [place] | | | | | [address] | [facility] [address] | | | | | [place], [place] | [phone] | | | | | [address] | | | | | | [phone] | | | +--------+ + + + [...]
--- OUTSIDE RECORDS SUMMARY | ~2019-11-25 | XMS | Encounter Summary ---
Demographics + + + | Address | [address] | | | [place] [address] | + + + | Home Phone [...] Team Providers + +------+ + | Care Motor And Controls Tester Name | Role | Phone | + +------+ + PCP | Unavailable | + +------+ + Encounter Details +--------+ + + + + | Date | Type | Department | Care Team | Description | +--------+ + + + + | 11/13/ | Hospital | [facility] | | | | 2006 | Encounter | MED CTR XRAY [address] | | | | | [address] [place] | | | | | | [place] [address] | | | | | | [phone] | | | +--------+ + + + [...]
[~2019-11-25 15:56] MED LIST changes: +ELIQUIS5 MG PO; +PACERONE200 MG PO; +TOPROL XL100 MG PO; +TYLENOL325 MG PO
--- OUTSIDE RECORDS SUMMARY | 2019-11-25 16:00 | XMS ---
PreManage Notification: SHARYN HAND Security Rectifier Operator Events No recent Security Events currently on file CRITERIA MET - 6 ED Visits in 6 Months - [facility] - 2 Visits in 30 Days CARE PROVIDERS Name Unknown Care Home Facility Current PHONE: [phone] SHARYN SNYDER Nurse Practitioner: Family 06/23/2018-Current PHONE: [phone] [facility] has no Care Guidelines for this patient. Care History Medical/Surgical 07/13/2019 [facility] - PATIENT IS A AND RECEIVED SERVICES AT [facility] . 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 - PATIENT PCP HAS NOT RECEIVED RECORDS FROM RECENT ED VISITS-[facility]W CONTACTED MEDICAL RECORDS AND PROVIDED FAX NUMBER TO HAVE RECENT ED RECORDS SENT FOR FOLLOW UP-PCP WILL BE IN CONTACT WITH PATIENT. E.D. VISIT COUNT (12 MO.) 1 [facility] 8 [facility] TOTAL 9 NOTE: Visits indicate total known visits. ED/UCC VISIT TRACKING (12 MO.) 11/25/2019 15:57 [facility] [place] TYPE: Emergency COMPLAINT: - L FOOT SKIN PROBLEM 11/13/2019 15:10 [facility] [place] TYPE: Emergency COMPLAINT: - ANKLE PAIN, FALL [facility] DIAGNOSES: - Postconcussional syndrome - fall - Multiple Falls - Occlusion and stenosis of bilateral carotid arteries - Headache (Adult - New Onset Or New Symptoms) 10/26/2019 03:06 [facility] TYPE: Emergency COMPLAINT: - FALL/HEAD LAC 10/20/2019 21:41 [facility] TYPE: Emergency COMPLAINT: - SOB 10/05/2019 16:44 [facility] [place] TYPE: Emergency COMPLAINT: - DIZZINESS/SOB DIAGNOSES: - Nicotine dependence, unspecified, uncomplicated - Allergy status to other antibiotic agents status - Allergy status to sulfonamides status - Paroxysmal atrial fibrillation - Unspecified atrial fibrillation - MCC (current) use of insulin - Type 2 diabetes mellitus without complications - Essential (primary) hypertension - Other terminal supervisor (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 - Dizziness and giddiness [...] to other specified factors, initial encounter - MCC (current) use of aspirin - Type 2 diabetes mellitus without complications - Allergy status to other antibiotic agents status - Other alf (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 - Other bursitis of elbow, right elbow - Unspecified sprain of right elbow, initial encounter INPATIENT VISIT TRACKING (12 MO.) 11/13/2019 15:[address] 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 insulin - termite control technician (current) use of anticoagulants - Bathroom of unspecified non-institutional (private) residence - Other terminal supervisor (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 - Pain in right ankle and joints of right foot - Allergy status to other drugs, medicaments and biological sub - Allergy status to other antibiotic agents status - Restless legs syndrome - Chronic atrial fibrillation, unspecified - Allergy status to sulfonamides status - Fall on same level, unspecified, initial encounter - Chronic kidney disease, stage 3 (moderate) - Paroxysmal atrial fibrillation - Hypertensive chronic kidney disease with stage 1 through stag - Contact with and (suspected) exposure to other viral communic - Type 2 diabetes mellitus with diabetic chronic kidney disease - Dehydration 10/26/2019 03:07 [facility] [place] TYPE: Observation COMPLAINT: - A-FIB/RVR DIAGNOSES: - Acquired absence of both cervix and uterus - Acquired absence of other organs - Type 2 diabetes mellitus with diabetic chronic kidney disease - MCC (current) use of anticoagulants - Other alf (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 - Other specified postprocedural states - Hypertensive heart and chronic kidney disease without heart f - Chronic kidney disease, stage 4 (severe) - Allergy status to other antibiotic agents status - Nicotine dependence, unspecified, uncomplicated - Hyperlipidemia, unspecified - termite control technician (current) use of insulin - Unspecified atrial [...] diabetic chronic kidney disease - Dehydration - termite control technician (current) use of insulin - Type 2 diabetes mellitus with diabetic chronic kidney disease - Hyperlipidemia, unspecified - Paroxysmal atrial fibrillation - Hypertensive chronic kidney disease with stage 1 through stag - Other terminal supervisor (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 - Other terminal supervisor (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 - Nicotine dependence, unspecified, uncomplicated - Repeated falls - Contact with and (suspected) exposure to other viral communic - Allergy status to sulfonamides status - Repeated falls - Contact with and (suspected) exposure to other viral communic - Chronic kidney disease, stage 4 (severe) - Allergy status to sulfonamides status - Dehydration - termite control technician (current) use of insulin - Hypertensive chronic kidney disease with stage 1 through stag - Allergy status to other antibiotic agents status - termite control technician (current) use of anticoagulants - termite control technician (current) use of anticoagulants - Hyperlipidemia, unspecified - Allergy status to other drugs, medicaments and biological sub [facility]05[facility]2019 [facility]09 [facility] DIAGNOSES: - Acute diastolic (congestive) heart failure - Chronic kidney disease, stage 4 (severe) - Afib - Tobacco use - Unspecified atrial fibrillation - Paroxysmal atrial fibrillation 09/17/2019 06:54 [facility] [place] TYPE: Observation COMPLAINT: - NEW ONSET AFIB RVR DIAGNOSES: - Acute kidney failure, unspecified - termite control technician (current) use of oral hypoglycemic drugs - Chronic kidney disease, unspecified - Hypertensive chronic kidney disease with stage 1 through stag - Unspecified atrial fibrillation - Palpitations - Allergy status to sulfonamides status - MCC (current) use of aspirin - Type 2 diabetes mellitus with diabetic nephropathy - Other terminal supervisor (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 - Type 2 diabetes mellitus with diabetic chronic kidney disease - Allergy status to other drugs, medicaments and biological sub - Nicotine dependence, unspecified, uncomplicated - Allergy status to other antibiotic agents status [email or web address]
[2019-11-25] MEDS ORDERED: NORVASC5 MG PO (19:08)
[2019-11-25] MEDS ORDERED: PACERONE200 MG PO (19:09)
[2019-11-25] MEDS ORDERED: K-TAB ER20 MEQ PO (19:10)
[2019-11-25] MEDS ORDERED: MIRAPEX0.125 MG PO (19:11)
[2019-11-25] MEDS ORDERED: SPIRULINA500 MG PO (19:13)
[2019-11-25] MEDS ORDERED: LASIX40 MG PO (19:18)
== END 2019-11-25 19:45 | disposition home or self-care (01) ==
LOC: ED 15:56
DX: S90.822A Blister (nonthermal), left foot, initial encounter (principal); S90.821A Blister (nonthermal), right foot, initial encounter; I13.0 Hypertensive heart and chronic kidney disease with heart failure and stage 1 through stage 4 chronic kidney disease, or unspecified chronic kidney disease; E11.22 Type 2 diabetes mellitus with diabetic chronic kidney disease; I50.9 Heart failure, unspecified; N18.9 Chronic kidney disease, unspecified; I48.91 Unspecified atrial fibrillation; F17.200 Nicotine dependence, unspecified, uncomplicated; Z88.2 Allergy status to sulfonamides; Z88.1 Allergy status to other antibiotic agents; Z88.8 Allergy status to other drugs, medicaments and biological substances; Z79.899 Other long term (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; Z79.01 Long term (current) use of anticoagulants; X58.XXXA Exposure to other specified factors, initial encounter
CPT/HCPCS: 71045; 80053; 83735; 83880; 84484; 85025; 96374; 99284-25; J1940

== ENCOUNTER 2020-01-14 16:57 | Inpatient (IN) | payer MEDICARE, OTHER ==
[~2020-01-14] VITALS: Ht 165.1 cm; Wt 80.6 kg
--- OUTSIDE RECORDS SUMMARY | ~2020-01-14 | XMS | Encounter Summary ---
Demographics + + + | Address | [address] | | | [place] [address] | + + + | Home Phone | | + + + | Preferred Language | Unknown | + + + | Marital Status | Unknown | + + + | Muslim Affiliation | Unknown | + + + | Race | White | + + + | Ethnic Group | Unknown | + + + Author + + + | Author | [facility] | | | and [place] | + + + | Organization | [facility] | | | and [place] | + + + | Address | Unknown | + + + | Phone | Unavailable | + + + Support + + +---------+ + | Name | Relationship | Address | Phone | + + +---------+ + | Kenan Lei | ECON | Unknown | | + + +---------+ + Care Team Providers + +------+ + | Care Insurance Operations Rep Name | Role | Phone | + +------+ + | Lizet Oliva | PCP | | + +------+ + Reason for Visit +--------+ + | Reason | Comments | +--------+ + | Other | US order sent to [facility] confirmation received 01/03/20 | +--------+ + Encounter Details +--------+ + + + + | Date | Type | Department | Care Team | Description | +--------+ + + + + | 01/03/ | Documentati | [facility] | Art, | Other (US order sent | | 2020 | on | NEPHROLOGY [facility]UAN | Naomi Seo | to [facility] | | | | [address] [place] | Data Center Solutions Architect | confirmation | | | | [address] [place], [place] | | received 01/03/20) | | | | [address] | | | | | | [phone] | | | +--------+ + + + + Social History + +--------+ +--------+------+ | Tobacco Use | Types | Packs/Day | Years | Date | | | | | Used | | + +--------+ +--------+------+ | Current Every Day | Cigars | 0.5 | | | | Smoker | | | | | + +--------+ +--------+------+ + +---+---+---+ | Smokeless Tobacco: | | | | | Never Used | | | | + +---+---+---+ + + +---------+ + | Alcohol Use | Drinks/Week | oz/Week | Comments | + + +---------+ + | Never | | | | + + +---------+ + + + + + | Alcohol Habits | Answer | Date Recorded | + + + + | How often do you have a drink containing | Never | 11/02/2019 | | alcohol? | | | + + + + | How many drinks containing alcohol do you | Not asked | | | have on a typical day when you are | | | | drinking? | | | + + + + | How often do you have six or more drinks on | Not asked | | | one occasion? | | | + + + + + + + | Sex Assigned at | Date Recorded | | | | + + + | Not on file | | + + + documented as of this encounter Plan of Treatment +--------+---------+ + + + | Date | Type | Specialty | Care Team | Description | +--------+---------+ + + + | 02/07/ | Office | Sleep Medicine | Vita Roberts | | | 2019 | Visit | | [address] | | | | | | [place] | | | | | | [place] [address] | | | | | | [phone] | | | | | | | | +--------+---------+ + + + | 03/08/ | Office | Cardiology | Denia Nicole | | | 2019 | Visit | | [address] | | | | | | [place] | | | | | | [place] [address] | | | | | | [phone] | | | | | | | | +--------+---------+ + + + documented as of this encounter Visit Diagnoses Not on filedocumented in this encounter"
--- OUTSIDE RECORDS SUMMARY | ~2020-01-14 | XMS | Encounter Summary ---
Demographics + + + | Address | [address] | | | [place] [address] | + + + | Home Phone | | + + + | Preferred Language | Unknown | + + + | Marital Status | Unknown | + + + | Adventism Affiliation | Unknown | + + + | Race | White | + + + | Ethnic Group | Unknown | + + + Author + + + | Author | [facility] | | | and [place] | + + + | Organization | [facility] | | | and [...] Team Providers + +------+ + | Care Power Manager Name | Role | Phone | + +------+ + PCP | Unavailable | + +------+ + Encounter Details +--------+ + + + + | Date | Type | Department | Care Team | Description | +--------+ + + + + | 04/28/ | Hospital | [facility] | Niharika Hsieh | | | 2006 | Encounter | HOSPITAL EMERGENCY | [address] | | | | [place] [address] [place] [place], [place] | [place] [address] | | | | | [address] | [phone] | | | | | [phone] | | | +--------+ + + + [...] 2019 | Visit | | ROMELIA Guevara [address] | | | | | [address] [place] | | | | | | [place] [address] | | | | | | [phone] | | | | | | | | +--------+---------+ + + + | 03/08/ | Office | Cardiology | Denia Nicole | | | 2019 | Visit | | [facility] [address] | | | | | | [address] [place] | | | | | | [place] [address] | | | | | | [phone] | | | | | | | | +--------+---------+ + + + documented as of this encounter Visit Diagnoses Not on filedocumented in this encounter"
--- OUTSIDE RECORDS SUMMARY | ~2020-01-14 | XMS | Encounter Summary ---
Demographics + + + | Address | [address] | | | [place] [address] | + + + | Home Phone | | + + + | Preferred Language | Unknown | + + + | Marital Status | Unknown | + + + | Synagogue Affiliation | Unknown | + + + | Race | White | + + + | Ethnic Group | Unknown | + + + Author + + + | Author | [facility] | | | and [place] | + + + | Organization | [facility] | | | and [...] Team Providers + +------+ + | Care Welding Instructor Name | Role | Phone | + +------+ + | Lizet Oliva | PCP | | + +------+ + Reason for Visit + + + | Reason | Comments | + + + | Multiple Falls | | + + + | Headache (Adult - | | | New Onset Or New | | | Symptoms) | | + + + Encounter Details +--------+ + + + + | Date | Type | Department | Care Team | Description | +--------+ + + + + | 11/01/ | Emergency | [facility] | Naeem Bruce MD | Post concussive | | 2019 | | [facility] | [address] | syndrome (Primary | | | | CENTER [address] | [place] | Dx); Carotid artery | | | | [place] | [id number] | calcification, | | | | [address] | | bilateral | | | | [phone] | | | +--------+ + + + [...] + + documented as of this encounter Last Filed Vital Signs + + + + + | Vital Sign | Reading | Time Taken | Comments | + + + + + | Blood Pressure | 176/75 | 11/02/2019 3:41 PM | | | | | PDT | | + + + + + | Pulse | 50 | 11/02/2019 3:41 PM | | | | | PDT | | + + + + + | Temperature | 36.4 C (97.6 F) | 11/02/2019 3:39 PM | | | | | PDT | | + + + + + | Respiratory Rate | 16 | 11/02/2019 3:39 PM | | | | | PDT | | + + + + + | Oxygen Saturation | 99% | 11/02/2019 3:41 PM | | | | | PDT | | + + + + + | Inhaled Oxygen | - | - | | | Concentration | | | | + + + + + | Weight | 75.3 kg (166 lb) | 11/02/2019 3:39 PM | | | | | PDT | | + + + + + | Height | 167.6 cm (5' 6") | 11/02/2019 3:39 PM | | | | | PDT | | + + + + + | Body Mass Index | 26.79 | 11/02/2019 3:39 PM | | | | | PDT | | + + + + + documented in this encounter Discharge Instructions Instructions Naeem Bruce MD - 11/02/2019CT scan of the head and neck were negative. CT s can of the neck did reveal quite a bit of calcification of the carotid arteries. Recommend outpatient ultrasound of the carotid arteries. Return for any worsening symptoms or any new concerns. Follow-up with a primary care provider. AttachmentsThe following attachments cannot be sent through Care Everywhere.Concussion, Commercial Credit Officer ing with (Filipino)Carotid Artery Disease (Filipino)documented in this encounter Medications at Time of Discharge + + + +---------+ + + | Medication | Sig | Dispensed | Refills | Start | End Date | | | | | | Date | | + + + +---------+ + + | albuterol 5 mg/mL | Take 2.5 mg by | | 0 | | | | nebulizer solution | nebulization every 6 | | | | | | | hours as needed. | | | | | + + + +---------+ + + | albuterol 90 | Inhale 2 puffs into | | 0 | | | | mcg/puff inhaler | the lungs 4 times | | | | | | | daily as needed for | | | | | | | Wheezing or | | | | | | | Shortness of Breath. | | | | | + + + +---------+ + + | amiodarone | Take 1 tablet by | 90 | 3 | 11/02/19 | | | (PACERONE) 200 mg | mouth Daily. | tablet | | 20 | | | tablet | | | | | | + + + +---------+ + + | betamethasone | Apply 1 Application | | 0 | | | | dipropionate 0.05% | topically 2 times | | | | | | cream | daily. To knees, | | | | | | | legs and elbows | | | | | | | every Friday and | | | | | | | Friday | | | | | + + + +---------+ + + | calcipotriene | Apply 1 Application | | 0 | | | | (DOVONEX) 0.005 % | topically 2 times | | | | | | cream | daily. To knees, | | | | | | | legs and elbows | | | | | | | after betamethasone | | | | | | | every Friday through | | | | | | | Friday | | | | | + + + +---------+ + + | calcium-vitamin D | Take 1 tablet by | | 0 | | | | (OSCAL) 500 mg-200 | mouth Daily. | | | | | | units per tablet | | | | | | + + + +---------+ + + | | Place 1 drop into | | 0 | | | | carboxymethylcellulo | both eyes. Two to | | | | | | se (REFRESH TEARS) | three times daily | | | | | | 0.5% ophthalmic | for dry eye | | | | | | solution | | | | | | + + + +---------+ + + | [facility] | Take by mouth. | | 0 | | | | GLUCOSAMINE-CHONDROI | | | | | | | TIN PO | | | | | | + + + +---------+ + + | cyanocobalamin | Take 1,000 mcg by | | 0 | | | | (VITAMIN B-12) 100 | mouth Daily. | | | | | | mcg tablet | | | | | | + + + +---------+ + + | fish oil 1,000 mg | Take 2,000 mg by | | 0 | | | | capsule | mouth 2 times daily. | | | | | + + + +---------+ + + | furosemide (LASIX) | Take 20 mg by mouth | | 0 | 04/17/20 | | | 40 mg tablet | Daily . | | | 19 | | + + + +---------+ + + | insulin aspart | Inject 5 Units under | | 0 | | | | (NOVOLOG PENFILL) | the skin 3 times | | | | | | 100 units/mL | daily (before | | | | | | injection cartridge | meals). Per sliding | | | | | | | scale: 150-199= 1 | | | | | | | hvvl133-691= 2 | | | | | | | afvll254-900= 3 | | | | | | | dmeiv436-049= 4 | | | | | | | units>350= 5 units | | | | | + + + +---------+ + + | insulin glargine | Inject 25 Units | 3 mL | 0 | 05//20 | | | (LANTUS SOLOSTAR) | under the skin every | | | 20 | | | 100 units/mL | evening. | | | | | | injection (pen) | | | | | | + + + +---------+ + + | liraglutide | Inject 1.8 mg under | | 0 | | | | (VICTOZA) 18 mg/3 mL | the skin Daily. | | | | | | injection | | | | | | + + + +---------+ + + | metoprolol | TAKE 1 TABLET BY | | 0 | 05/30/20 | | | succinate | MOUTH ONCE DAILY FOR | | | 20 | | | (TOPROL-XL) 100 mg | ARTIAL FIBRILATION. | | | | | | ER tablet | PLEASE CONTACT PCP | | | | | | | FOR FURTHER REFILLS | | | | | + + + +---------+ + + | rosuvastatin | Take 20 mg by mouth | | 0 | | | | (CRESTOR) 20 mg | nightly. | | | | | | tablet | | | | | | + + + +---------+ + + | SPIRULINA PO | Take by mouth. | | 0 | | | + + + +---------+ + + | cyclobenzaprine | Take 5 mg by mouth 3 | | 0 | | | | (FLEXERIL) 5 MG | times daily. For | | | | 0 | | tablet | muscle spasms | | | | | + + + +---------+ + + | Multiple | Take by mouth. | | 0 | | | | Vitamins-Minerals | | | | | 0 | | (MULTIVITAL PO) | | | | | | + + + +---------+ + + | pramipexole | Take 1 tablet by | 30 | 0 | 10/08/19 | | | (MIRAPEX) 0.125 MG | mouth Daily for 30 | tablet | | 20 | 0 | | tablet | days. | | | | | + + + +---------+ + + | rivaroxaban | Take 1 tablet by | 90 | 3 | 11/04/19 | | | (XARELTO) 20 mg | mouth Daily (with | tablet | | 20 | 0 | | tablet | dinner). | | | | | + + + +---------+ + + | rivaroxaban | Take 1 tablet by | 90 | 3 | 11/02/19 | | | (XARELTO) 20 mg | mouth Daily (with | tablet | | 20 | 0 | | tablet | dinner). | | | | | + + + +---------+ + + documented as of this encounter ED Notes Blake Morocho RN - 11/02/2019 3:41 PM PDTmultiple falls (2) within the last week where patient struck her head, patient complains of new onset headache. State she does not know i f she was knocked out either time she fell.Electronically signed by Blake Morocho RN at 0 11/02/2019 3:43 PM Naeem Pérez MD - 11/02/2019 3:35 PM PDTFormatting of this note migh t be different from the original. [facility] Lizet Mcneil Emergency Department Encounter Note [address] [place] [address] PCP:JOEL Salvador [phone] CHIEF COMPLAINT: Chief Complaint Patient presents with Multiple Falls Headache (Adult - New Onset Or New Symptoms) ED Room: ED05/ED05 HPI Lizet Mcneil is a 69 y.o. female who presents to the Emergency Department after mult iple falls. She presents with a right with a headache. Her last fall was 1 week ago. She was seen at cardiology clinic and was sent here for further evaluation. She has continuous headaches. Some nausea. No focal weakness. No blurred vision or double vision. She does complain some mild neck pain. 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 albuterol 90 mcg/puff inhaler Inhale 2 puffs into the lungs 4 times daily as needed for Wheezing or Shortness of Breath. amiodarone (PACERONE) 200 mg tablet Take 1 tablet by mouth Daily. betamethasone dipropionate 0.05% cream Apply 1 Application topically 2 times daily. To knees, legs and elbows every Friday and Friday calcipotriene (DOVONEX) 0.005 % cream Apply 1 Application topically 2 times daily. To k nees, legs and elbows after betamethasone every Friday through Friday calcium-vitamin D (OSCAL) 500 mg-200 units per tablet Take 1 tablet by mouth Daily. carboxymethylcellulose (REFRESH TEARS) 0.5% ophthalmic solution Place 1 drop into both eyes. Two to three times daily for dry eye [facility] GLUCOSAMINE-CHONDROITIN PO Take by mouth. cyanocobalamin (VITAMIN B-12) 100 mcg tablet Take 1,000 mcg by mouth Daily. cyclobenzaprine (FLEXERIL) 5 MG tablet Take 5 mg by mouth 3 times daily. For muscle spa sms fish oil 1,000 mg capsule Take 2,000 mg by mouth 2 times daily. furosemide (LASIX) 40 mg tablet Take 40 mg by mouth 2 times daily. insulin aspart (NOVOLOG PENFILL) 100 units/mL injection cartridge Inject 5 Units under the skin 3 times daily (before meals). Per sliding scale: 150-199= 1 unit 200-249= 2 units 250-299= 3 units 300-349= 4 units >350= 5 units insulin glargine (LANTUS SOLOSTAR) 100 units/mL injection (pen) Inject 25 Units under t he skin every evening. liraglutide (VICTOZA) 18 mg/3 mL injection Inject 1.8 mg under the skin Daily. metoprolol succinate (TOPROL-XL) 100 mg ER tablet TAKE 1 TABLET BY MOUTH ONCE DAILY FOR ARTIAL FIBRILATION. PLEASE CONTACT PCP FOR FURTHER REFILLS Multiple Vitamins-Minerals (MULTIVITAL PO) Take by mouth. pramipexole (MIRAPEX) 0.125 MG tablet Take 1 tablet by mouth Daily for 30 days. rivaroxaban (XARELTO) 20 mg tablet Take 1 tablet by mouth Daily (with dinner). rosuvastatin (CRESTOR) 20 mg tablet Take 20 mg by mouth nightly. SPIRULINA PO Take by mouth. ALLERGIES Allergies Allergen Reactions Baclofen Other (See Comments) Unspecified reaction Ciprofloxacin Other (See Comments) Unspecified reaction Sulfa Antibiotics Other (See Comments) Unspecified reaction FAMILY AND SOCIAL HISTORY History reviewed. No pertinent family history. Social History Socioeconomic History Marital status: Unknown Spouse name: Not on file Number of children: Not on file Years of education: Not on file Highest education level: Not on file Tobacco Use Smoking status: Current Every Day Smoker Packs/day: 0.50 Types: Cigars Smokeless tobacco: Never Used Substance and Sexual Activity Alcohol use: Never Frequency: Never Drug use: Never REVIEW OF SYSTEMS As in history of present illness. A 10 system review was otherwise negative. PHYSICAL EXAM VITAL SIGNS: (first vital signs):Temp: 36.4 C (97.6 F) Pulse: 50 Resp: 16 SpO2: 100 % B P: 176/75 Body mass index is 26.79 kg/m. Constitutional: female patient, pleasant female no acute distress HEENT: Atraumatic, PERRL, Oropharynx benign. Neck: Supple with full range of motion. Midline tenderness Respiratory: Good air movement bilaterally. Cardiovascular: Normal S1 S2 Abdomen: Soft, nontender, nondistended Extremities: Nontender. Bilateral lower extremity neuropathy, no deformity or weakness Skin: Warm, Dry, No rashes Neurologic: Alert & oriented. Psychiatric: Normal mood, affect and judgement. EKG 12-lead EKG shows LABS Results for orders placed or performed in visit on 11/02/19 ECG 12 lead Result Value Ref Range INTERPRETATION TEXT Not Confirmed IMAGING STUDIES (X-Rays interpreted by ED Physician) CT CERVICAL SPINE WO CONTRAST 11/02/2019 3:55 PM HISTORY: Emergent Patient - see comments neck pain s/p falls. COMPARISON: None. PROTOCOL: Thin section axial images of the cervical spine were obtained along with coronal and sagittal reformations. FINDINGS: Vertebral body height and alignment is maintained. Multilevel moderate to severe disc space narrowing and endplate sclerosis from C4 through C7. Multilevel pronounced neural foraminal narrowing and facet spondylosis as detailed below. Mild to moderate C1-C2 degenerative changes. Prevertebral and paraspinal soft tissues show no acute abnormality. Cervicomedullary junction and atlantoaxial articulations demonstrate no acute abnormalities. C2-3: No central canal or neural foramina canal stenosis. C3-4: Mild uncinate and facet spondylosis without significant neural foraminal or central spinal stenosis. C4-5: Bilateral moderate to severe uncovertebral spondylosis causing moderate right and mild to moderate left neural foraminal narrowing. Likely mild central spinal stenosis. C5-6: Circumferential disc osteophyte complex with severe left and mild to moderate neural foraminal narrowing. Possible mild central spinal stenosis. C6-7: Mild facet spondylosis and circumferential disc osteophyte complex causes at least mild to moderate left and mild right neural foraminal narrowing. C7-T1: No central canal or neural foramina canal stenosis. IMPRESSION: 1. No acute cervical spine fracture or evidence of traumatic malalignment. 2. Multilevel moderate to severe degenerative disc disease and facet spondylosis with multilevel neural foraminal narrowing as detailed above most pronounced at C4-C7. 3. Severe atherosclerotic changes involving the carotid bulbs and proximal ICAs. Dictated and Signed by: Bradley Cerrato MD Electronically signed: 11/02/2019 4:29 PM EXAM: CT HEAD WO CONTRAST dated 11/02/2019 3:55 PM HISTORY: Emergent Patient - see comments fall Comparison: None. TECHNIQUE: Noncontrast CT is performed from the top of calvarium through the skull base. Coronal and sagittal reformats are performed. FINDINGS: BRAIN: No areas of increased attenuation to suggest intracranial hemorrhage. There is no mass, mass effect, or midline shift. There are no abnormal extra-axial fluid or air collections. There is preservation of the head-white differentiation at this time. There is mild cerebral atrophy. There is appropriate associated prominence of the ventricles. Moderate intracranial arteriosclerosis. Hypodensity in the right basal ganglia may represent a remote appearing infarct. There are mild scattered regions of periventricular and subcortical white matter low density. SCALP/ CALVARIUM: The scalp and skull are intact and are unremarkable. SINUSES / ORBITS/ MASTOIDS: The visible mastoid air cells and paranasal sinuses are clear. The globes and retroconal contents are intact and without evidence of acute abnormality. IMPRESSION: No acute intracranial abnormality identified. Mild cerebral atrophy with mild nonspecific white matter disease. Mild intracranial arteriosclerosis the bilateral parasellar ICAs. Dictated and Signed by: Bradley Cerrato MD Electronically signed: 11/02/2019 4:11 PM ED COURSE & MEDICAL DECISION MAKING Pertinent Labs & Imaging studies were reviewed along with EMS notes and penitentiary record s if applicable. (See chart for details) Medications and Allergy list reviewed. Nurses note and old records were reviewed The patient was seen and examined, Patient is a 69-year-old female who presents with headache following multiple falls last fa ll was 1 week ago. She is anticoagulated. She is on warfarin. She had no focal weakness. I think is most likely postconcussive syndrome. She does have some intermittent nausea. I did do a scan of her neck given some neck pain. There is no evidence of any acute osseous injury and CT scan of the head did not reveal any intracranial hemorrhage or fracture. Choco morrissey was quite a bit of calcification of her carotids. I spoke with family regarding this and recommended that they get an outpatient ultrasound of her carotids. Last Set of Vital Signs: Temp: 36.4 C (97.6 F) Pulse: 50 Resp: 16 SpO2: 100 % BP: 176/7 5 FINAL IMPRESSION ICD-10-CM ICD-9-CM 1. Post concussive syndrome F07.81 310.2 2. Carotid artery calcification, bilateral I65.23 433.10 Follow-up Information Schedule an appointment as soon as possible for a visit with JOEL Salvador. Specialty: Family Nurse Practitioner Contact information: [address] [place] [address] [facility]. Specialty: Emergency Medicine Why: If symptoms worsen Contact information: [address] [place] [address] Naeem Bruce MD 11/02/19 [id number] documented in this encou nter Plan of Treatment +--------+---------+ + + + | Date | Type | Specialty | Care Team | Description | +--------+---------+ + + + | 02/07/ | Office | Sleep Medicine | Vita Roberts | | | 2019 | Visit | | ROMELIA Guevara [address] | | | | | [address] [place] | | | | | | [place] [address] | | | | | | [phone] | | | | | | | | +--------+---------+ + + + | 03/08/ | Office | Cardiology | Denia Nicole | | | 2019 | Visit | | BECK Barber [address] | | | | | [address] [place] | | | | | | [place] [address] | | | | | | [phone] | | | | | | | | +--------+---------+ + + + + +------+--------+ + + | Name | Type | Priori | Associated Diagnoses | Date/Time | | | | ty | | | + +------+--------+ + + | ED INFORMATION | OSEI | Routin | | 11/02/2019 3:29 PM | | EXCHANGE | | e | | PDT | + +------+--------+ + + documented as of this encounter Procedures + +--------+ + + + | Procedure Name | Priori | Date/Time | Associated Diagnosis | Comments | | | ty | | | | + +--------+ + + + | CT CERVICAL SPINE WO | STAT | 11/02/2019 | | Results for this | | CONTRAST | | 3:57 PM | | procedure are in the | | | | PDT | | results section. | + +--------+ + + + | CT HEAD WO CONTRAST | STAT | 11/02/2019 | | Results for this | | | | 3:57 PM | | procedure are in the | | | | PDT | | results section. | + +--------+ + + + | ED INFORMATION | Routin | 11/02/2019 | | | | EXCHANGE | e | 3:29 PM | | | | | | PDT | | | + +--------+ + + + +---+--------+ | | | | | Proced | | | ure | | | Note - | | | [place], | | | Lab In | | | | | | Hlseve | | | n - | | | 11/01/ | | | 2019 | | | 3:30 | | | PM PDT | | | | | | Format | | | ting | | | of | | | this | | | note | | | might | | | be | | | differ | | | ent | | | from | | | the | | | origin | | | al.COL | | | LECTIV | | | E?NOTI | | | FICATI | | | ON?/ | | | | | | 0 | | | 15:28? | | | TAUFEN | | | -MILLS | | | AM, | | | LIZET?M | | | RN: | | | [id number] | | | [id number] | | | riteri | | | a Met | | | PDMP | | | 4 | | | visits | | | in | | | 60Secu | | | rity | | | and | | | Safety | | | No | | | recent | | | | | | Securi | | | ty | | | Events | | | | | | curren | | | tly on | | | | | | fileED | | | Care | | | Guidel | | | inesTh | | | ere | | | are | | | curren | | | tly no | | | ED | | | Care | | | Guidel | | | jacquelin | | | for | | | this | | | patien | | | t. | | | Please | | | check | | | your | | | facili | | | ty's | | | medica | | | l | | | record | | | s | | | system | | | .Presc | | | riptio | | | n Drug | | | | | | Report | | | (12 | | | Mo.)Rx | | | | | | Detail | | | sFill | | | Date | | | Drug | | | Descri | | | ption | | | Qty. | | | Prescr | | | iber | | | CS MED | | | | | | 2020-0 | | | 3-27 | | | PREGAB | | | DI | | | 25 MG | | | CAPSUL | | | E 60 | | | LIZET | | | OLIVA | | | 0 | | | 2020-0 | | | 3-17 | | | PREGAB | | | DI | | | 25 MG | | | CAPSUL | | | E 60 | | | LIZET | | | OLIVA | | | 0 | | | 2020-0 | | | 1-28 | | | LYRICA | | | 25 MG | | | | | | CAPSUL | | | E 60 | | | LIZET | | | OLIVA | | | 5 0 | | | 2020-0 | | | 1-16 | | | LYRICA | | | 25 MG | | | | | | CAPSUL | | | E 60 | | | LIZET | | | OLIVA | | | 5 0 | | | Rx | | | [place] | | | yMetri | | | c | | | Count | | | CS | | | II-V | | | Rx 2 | | | CS-II | | | Rx 0 | | | Quanti | | | ty | | | Dispen | | | sed | | | 240 | | | Unique | | | | | | Prescr | | | ibers | | | 1 | | | Unique | | | | | | Pharma | | | cies 1 | | | | | | Benzos | | | 0 | | | Opioid | | | s 0 | | | Long | | | Acting | | | | | | Opioid | | | s 0 | | | E.D. | | | Visit | | | Count | | | (12 | | | mo.)Fa | | | cility | | | | | | Visits | | | Low | | | Acuity | | | | | | Provid | | | ence | | | St. | | | [facility] | | | Medica | | | l | | | Center | | | 1 0 | | | [facility] [place] | | | y | | | Hospit | | | al 6 0 | | | Total | | | 7 0 | | | Note: | | | Visits | | | | | | indica | | | te | | | total | | | known | | | visits | | | . | | | Medica | | | id Low | | | | | | Acuity | | | Dx | | | are | | | the | | | number | | | of | | | primar | | | y | | | diagno | | | ses on | | | the | | | Medica | | | id's | | | Low | | | Acuity | | | dx | | | list. | | | | | | Recent | | | | | | Emerge | | | ncy | | | Depart | | | ment | | | Visit | | | [place] | | | yDate | | | Facili | | | ty | | | City | | | State | | | Type | | | Diagno | | | ses or | | | Chief | | | | | | Compla | | | int | | | Peter 9, | | | 2020 | | | Provid | | | ence | | | [facility] | | | [facility] | | [place] | | | [place] | | | Emerge | | | ncy | | | fall | | | Peter | | | 2, | | | 2020 | | | [facility] | [place] | | | [facility] | | | [place] | | | [place] | | | Emerge | | | ncy | | | Chief | | | Compla | | | int: | | | FALL/H | | | EAD | | | LAC | | | May | | | 27, | | | 2020 | | | [facility] | [place] | | | [facility] | | | [place] | | | [place] | | | Emerge | | | ncy | | | Chief | | | Compla | | | int: | | | SOB | | | May | | | 12, | | | 2020 | | | [facility] | [place] | | | [facility] | | | [place] | | | [place] | | | Emerge | | | ncy | | | | | | Nicoti | | | ne | | | depend | | | ence, | | | unspec | | | ified, | | | | | | uncomp | | | licate | | | d | | | Allerg | | | y | | | status | | | to | | | other | | | antibi | | | otic | | | agents | | | | | | status | | | | | | Allerg | | | y | | | status | | | to | | | sulfon | | | amides | | | | | | status | | | | | | Paroxy | | | smal | | | atrial | | | | | | fibril | | | lation | | | | | | Unspec | | | ified | | | atrial | | | | | | fibril | | | lation | | | | | | Long | | | term | | | (curre | | | nt) | | | use of | | | | | | insuli | | | n | | | Type 2 | | | | | | diabet | | | es | | | mellit | | | us | | | withou | | | t | | | compli | | | cation | | | s | | | Essent | | | ial | | | (prima | | | ry) | | | hypert | | | ension | | | | | | Other | | | long | | | term | | | (curre | | | nt) | | | drug | | | therap | | | y | | | Dizzin | | | ess | | | and | | | giddin | | | ess | | | Apr | | | 24, | | | 2020 | | | [facility] [place] | | | [facility] | | | [place] | | | [place] | | | Emerge | | | ncy | | | Chief | | | Compla | | | int: | | | BLOOD | | | PRESSU | | | RE | | | PROBLE | | | M, JAW | | | PAIN | | | NON | | | INJURY | | | Feb | | | 15, | | | 2020 | | | [facility] | [place] | | | [facility] | | | [place] | | | [place] | | | Emerge | | | ncy | | | | | | Unspec | | | ified | | | sprain | | | of | | | left | | | foot, | | | initia | | | l | | | encoun | | | ter | | | Type | | | 2 | | | diabet | | | es | | | mellit | | | us | | | withou | | | t | | | compli | | | cation | | | s | | | Unspec | | | ified | | | sprain | | | of | | | right | | | foot, | | | initia | | | l | | | encoun | | | ter | | | | | | Sprain | | | of | | | unspec | | | ified | | | ligame | | | nt of | | | left | | | ankle, | | | | | | initia | | | l | | | encoun | | | t | | | Nicoti | | | ne | | | depend | | | ence, | | | unspec | | | ified, | | | | | | uncomp | | | licate | | | d | | | Exposu | | | re to | | | other | | | specif | | | ied | | | factor | | | s, | | | initia | | | l | | | encoun | | | ter | | | | | | Sprain | | | of | | | unspec | | | ified | | | ligame | | | nt of | | | right | | | ankle, | | | | | | initia | | | l | | | encoun | | | | | | Essent | | | ial | | | (prima | | | ry) | | | hypert | | | ension | | | | | | Pain | | | in | | | left | | | foot | | | Feb 5, | | | 2020 | | | [facility] [place] | | | [facility] | | | [place] | | | [place] | | | Emerge | | | ncy | | | Pain | | | in | | | right | | | elbow | | | | | | Exposu | | | re to | | | other | | | specif | | | ied | | | factor | | | s, | | | initia | | | l | | | encoun | | | ter | | | Type | | | 2 | | | diabet | | | es | | | mellit | | | us | | | withou | | | t | | | compli | | | cation | | | s | | | Other | | | bursit | | | is of | | | elbow, | | | right | | | elbow | | | | | | Unspec | | | ified | | | sprain | | | of | | | right | | | elbow, | | | | | | initia | | | l | | | encoun | | | ter | | | | | | Allerg | | | y | | | status | | | to | | | other | | | drugs, | | | | | | medica | | | ments | | | and | | | biolog | | | ical | | | sub | | | | | | Nicoti | | | ne | | | depend | | | ence, | | | unspec | | | ified, | | | | | | uncomp | | | licate | | | d | | | Allerg | | | y | | | status | | | to | | | sulfon | | | amides | | | | | | status | | | | | | Long | | | term | | | (curre | | | nt) | | | use of | | | | | | aspiri | | | n | | | Allerg | | | y | | | status | | | to | | | other | | | antibi | | | otic | | | agents | | | | | | status | | | | | | Recent | | | | | | Inpati | | | ent | | | Visit | | | Summar | | | yDate | | | Facili | | | ty | | | City | | | State | | | Type | | | Diagno | | | ses or | | | Chief | | | | | | Compla | | | int | | | Peter 2, | | | 2020 | | | [facility] | [place] | | | [facility] | | | [place] | | | [place] | | | Observ | | | ation | | | | | | Acquir | | | ed | | | absenc | | | e of | | | both | | | cervix | | | and | | | uterus | | | | | | Acquir | | | ed | | | absenc | | | e of | | | other | | | organs | | | | | | Type 2 | | | | | | diabet | | | es | | | mellit | | | us | | | with | | | diabet | | | ic | | | chroni | | | c | | | kidney | | | | | | diseas | | | e | | | Long | | | term | | | (curre | | | nt) | | | use of | | | | | | antico | | | agulan | | | ts | | | Other | | | long | | | term | | | (curre | | | nt) | | | drug | | | therap | | | y | | | Other | | | specif | | | ied | | | postpr | | | ocedur | | | al | | | states | | | | | | Hypert | | | ensive | | | heart | | | and | | | chroni | | | c | | | kidney | | | | | | diseas | | | e | | | withou | | | t | | | heart | | | f | | | Allerg | | | y | | | status | | | to | | | other | | | antibi | | | otic | | | agents | | | | | | status | | | | | | Nicoti | | | ne | | | depend | | | ence, | | | unspec | | | ified, | | | | | | uncomp | | | licate | | | d | | | Hyperl | | | ipidem | | | ia, | | | unspec | | | ified | | | May | | | 28, | | | 2020 | | | [facility] | [facility] | | | [place] | | | [facility]. | | | [place] | | | [place] | | | Medica | | | l | | | Surgic | | | al | | | Paroxy | | | smal | | | atrial | | | | | | fibril | | | lation | | | | | | Nicoti | | | ne | | | depend | | | ence, | | | unspec | | | ified, | | | | | | uncomp | | | licate | | | d | | | Long | | | term | | | (curre | | | nt) | | | use of | | | | | | antico | | | agulan | | | ts | | | Long | | | term | | | (curre | | | nt) | | | use of | | | | | | insuli | | | n | | | Allerg | | | y | | | status | | | to | | | sulfon | | | amides | | | | | | status | | | | | | Contac | | | t with | | | and | | | (suspe | | | cted) | | | exposu | | | re to | | | other | | | viral | | | commun | | | ic | | | Repeat | | | ed | | | falls | | | | | | Dehydr | | | ation | | | | | | Chroni | | | c | | | kidney | | | | | | diseas | | | e, | | | stage | | | 4 | | | (sever | | | e) | | | Hyperc | | | alcemi | | | a May | | | 12, | | | 2020 | | | [facility] | | | ence | | | [facility] | | | [facility] | | [place] | | | [place] | | | Surgic | | | al | | | Servic | | | es | | | Afib | | | | | | Paroxy | | | smal | | | atrial | | | | | | fibril | | | lation | | | | | | Acute | | | diasto | | | lic | | | (conge | | | stive) | | | heart | | | | | | failur | | | e | | | Chroni | | | c | | | kidney | | | | | | diseas | | | e, | | | stage | | | 4 | | | (sever | | | e) | | | Tobacc | | | o use | | | | | | Unspec | | | ified | | | atrial | | | | | | fibril | | | lation | | | Apr | | | 24, | | | 2020 | | | [facility] | [facility] | | | [place] | | | [facility]. | | | [place] | | | [place] | | | Observ | | | ation | | | | | | Acute | | | kidney | | | | | | failur | | | e, | | | unspec | | | ified | | | | | | Long | | | term | | | (curre | | | nt) | | | use of | | | oral | | | hypogl | | | ycemic | | | drugs | | | | | | Chroni | | | c | | | kidney | | | | | | diseas | | | e, | | | unspec | | | ified | | | | | | Hypert | | | ensive | | | | | | chroni | | | c | | | kidney | | | | | | diseas | | | e with | | | stage | | | 1 | | | throug | | | h stag | | | | | | Unspec | | | ified | | | atrial | | | | | | fibril | | | lation | | | | | | Palpit | | | ations | | | | | | Allerg | | | y | | | status | | | to | | | sulfon | | | amides | | | | | | status | | | | | | Long | | | term | | | (curre | | | nt) | | | use of | | | | | | aspiri | | | n | | | Type 2 | | | | | | diabet | | | es | | | mellit | | | us | | | with | | | diabet | | | ic | | | nephro | | | jacey | | | | | | Other | | | long | | | term | | | (curre | | | nt) | | | drug | | | therap | | | y | | | Care | | | TeamPr | | | ovider | | | | | | Specia | | | lty | | | Phone | | | Fax | | | Servic | | | e | | | Dates | | | OLIVA | | | , LIZET | | | SAMMY, | | | [id number] | [phone] | | | Nurse | | | Practi | | | tioner | | | : | | | Family | | | [phone] | | | | | | [phone] | | | [phone] | | | [phone] | | | [phone] | | | 27 Adriano | | | 29, | | | 2019 - | | | | | | Curren | | | t | | | [facility] | | | tive | | | Portal | | | This | | | patien | | | t has | | | regist | | | ered | | | at the | | | | | | Provid | | | ence | | | St. | | | [facility] | [facility] | | | l | | | Center | | | | | | Emerge | | | ncy | | | Depart | | | ment | | | For | | | more | | | inform | | | ation | | | visit: | | | | | | https: | | | //prov | | | .colle | | | ctivem | | | edical | | | .com/n | | | otify/ | | | [id number] | | | [email or web address] | | | [email or web address] | | | -[email or web address] | | | [id number] | | | [id number] | | | | | | PLEASE | | | NOTE: | | | 1. | | | Any | | | care | | | recomm | | | endati | | | ons | | | and | | | other | | | clinic | | | al | | | inform | | | ation | | | are | | | provid | | | ed as | | | guidel | | | jacquelin | | | or for | | | | | | histor | | | ical | | | purpos | | | es | | | only, | | | and | | | provid | | | ers | | | should | | | | | | exerci | | | se | | | their | | | own | | | clinic | | | al | | | judgme | | | nt | | | when | | | provid | | | ing | | | care. | | | 2. | | | You | | | may | | | only | | | use | | | this | | | inform | | | ation | | | for | | | purpos | | | es of | | | treatm | | | ent, | | | paymen | | | t or | | | health | | | care | | | operat | | | ions | | | activi | | | ties, | | | and | | | subjec | | | t to | | | the | | | limita | | | tions | | | of | | | applic | | | able | | | Collec | | | tive | | | Polici | | | es. | | | 3. | | | You | | | should | | | | | | consul | | | t | | | direct | | | ly | | | with | | | the | | | organi | | | zation | | | that | | | provid | | | ed a | | | care | | | guidel | | | ine or | | | other | | | | | | clinic | | | al | | | histor | | | y with | | | any | | | questi | | | ons | | | about | | | additi | | | onal | | | inform | | | ation | | | or | | | accura | | | cy or | | | comple | | | teness | | | of | | | inform | | | ation | | | provid | | | ed.? | | | 2019 | | | [facility] | | | tive | | | Medica | | | l | | | Techn[employer] | | | logies | | | , Inc[employer] | | | - | | | [email or web address] | | | llecti | | | vemedi | | | [email or web address] | | | m | +---+--------+ documented in this encounter Results CT Cervical Spine wo Contrast (11/02/2019 3:57 PM PDT) + + | Specimen | + + | | + + + + + | Impressions | Performed At | + + + | 1. No acute cervical spine fracture or evidence of traumatic | [facility] | | malalignment. 2. Multilevel moderate to severe degenerative disc | | | disease and facet spondylosis with multilevel neural foraminal | | | narrowing as detailed above most pronounced at C4-C7. 3. Severe | | | atherosclerotic changes involving the carotid bulbs and proximal ICAs. | | | Dictated and Signed by: Bradley Cerrato MD Electronically | | | signed: 11/02/2019 4:29 PM | | + + + + + + | Narrative | Performed At | + + + | CT CERVICAL SPINE WO CONTRAST 11/02/2019 3:55 PM HISTORY: Emergent | [facility] | | Patient - see comments neck pain s/p falls. COMPARISON: None. | | | PROTOCOL: Thin section axial images of the cervical spine were | | | obtained along with coronal and sagittal reformations. FINDINGS: | | | Vertebral body height and alignment is maintained. Multilevel | | | moderate to severe disc space narrowing and endplate sclerosis from | | | C4 through C7. Multilevel pronounced neural foraminal narrowing and | | | facet spondylosis as detailed below. Mild to moderate C1-C2 | | | degenerative changes. Prevertebral and paraspinal soft tissues show | | | no acute abnormality. Cervicomedullary junction and atlantoaxial | | | articulations demonstrate no acute abnormalities. C2-3: No central | | | canal or neural foramina canal stenosis. C3-4: Mild uncinate and | | | facet spondylosis without significant neural foraminal or central | | | spinal stenosis. C4-5: Bilateral moderate to severe uncovertebral | | | spondylosis causing moderate right and mild to moderate left neural | | | foraminal narrowing. Likely mild central spinal stenosis. C5-6: | | | Circumferential disc osteophyte complex with severe left and mild to | | | moderate neural foraminal narrowing. Possible mild central spinal | | | stenosis. C6-7: Mild facet spondylosis and circumferential disc | | | osteophyte complex causes at least mild to moderate left and mild | | | right neural foraminal narrowing. C7-T1: No central canal or | | | neural foramina canal stenosis. | | + + + + + | Procedure Note | + + | Peewee, Rad Results In - 11/02/2019 4:[address] CERVICAL SPINE WO CONTRAST 11/02/2019 | | 3:55 PMHISTORY: Emergent Patient - see commentsneck pain s/p falls.COMPARISON: | | None.PROTOCOL: Thin section axial images of the cervical spine were obtained alongwith | | coronal and sagittal reformations.FINDINGS:Vertebral body height and alignment is | | maintained. Multilevel moderate to severedisc space narrowing and endplate sclerosis | | from C4 through C7. Multilevelpronounced neural foraminal narrowing and facet | | spondylosis as detailed below.Mild to moderate C1-C2 degenerative changes. Prevertebral | | and paraspinal softtissues show no acute abnormality. Cervicomedullary junction and | | atlantoaxialarticulations demonstrate no acute abnormalities.C2-3: No central canal or | | neural foramina canal stenosis.C3-4: Mild uncinate and facet spondylosis without | | significant neural foraminalor central spinal stenosis.C4-5: Bilateral moderate to | | severe uncovertebral spondylosis causing moderateright and mild to moderate left neural | | foraminal narrowing. Likely mild centralspinal stenosis.C5-6: Circumferential disc | | osteophyte complex with severe left and mild tomoderate neural foraminal narrowing. | | Possible mild central spinal stenosis.C6-7: Mild facet spondylosis and circumferential | | disc osteophyte complex causesat least mild to moderate left and mild right neural | | foraminal narrowing.C7-T1: No central canal or neural foramina canal | | stenosis.IMPRESSION: 1. No acute cervical spine fracture or evidence of traumatic | | malalignment.2. Multilevel moderate to severe degenerative disc disease and facet | | spondylosiswith multilevel neural foraminal narrowing as detailed above most pronounced | | atC4-C7.3. Severe atherosclerotic changes involving the carotid bulbs and proximal | | ICAs.Dictated and Signed by: Bradley Cerrato MD Electronically signed: 11/02/2019 4:29 PM | | | |C4-5: Bilateral moderate to severe uncovertebral spondylosis causing moderate | |right and mild to moderate left neural foraminal narrowing. Likely mild central | |spinal stenosis. | | | |C5-6: Circumferential disc osteophyte complex with severe left and mild to | |moderate neural foraminal narrowing. Possible mild central spinal stenosis. | | | |C6-7: Mild facet spondylosis and circumferential disc osteophyte complex causes | |at least mild to moderate left and mild right neural foraminal narrowing. | | | |C7-T1: No central canal or neural foramina canal stenosis. | | | | | |IMPRESSION: | |1. No acute cervical spine fracture or evidence of traumatic malalignment. | |2. Multilevel moderate to severe degenerative disc disease and facet spondylosis | |with multilevel neural foraminal narrowing as detailed above most pronounced at | |C4-C7. | |3. Severe atherosclerotic changes involving the carotid bulbs and proximal ICAs. | | | | | |Dictated and Signed by: Bradley Cerrato MD | | Electronically signed: 11/02/2019 4:29 PM | + + + +---------+ + + | Performing | Address | City/State/Zipcode | Phone Number | | Organization | | | | + +---------+ + + | [facility] | | | | + +---------+ + + CT Head wo Contrast (11/02/2019 3:57 PM PDT) + + | Specimen | + + | | + + + + + | Impressions | Performed At | + + + | No acute intracranial abnormality identified. Mild cerebral | [facility] | | atrophy with mild nonspecific white matter disease. Mild intracranial | | | arteriosclerosis the bilateral parasellar ICAs. Dictated and | | | Signed by: Bradley Cerrato MD Electronically signed: 11/02/2019 4:11 | | | PM | | + + + + + + | Narrative | Performed At | + + + | EXAM: CT HEAD WO CONTRAST dated 11/02/2019 3:55 PM HISTORY: | [facility] | | Emergent Patient - see comments fall Comparison: None. | | | TECHNIQUE: Noncontrast CT is performed from the top of calvarium | | | through the skull base. Coronal and sagittal reformats are | | | performed. FINDINGS: BRAIN: No areas of increased | | | attenuation to suggest intracranial hemorrhage. There is no mass, | | | mass effect, or midline shift. There are no abnormal extra-axial | | | fluid or air collections. There is preservation of the head-white | | | differentiation at this time. There is mild cerebral atrophy. | | | There is appropriate associated prominence of the ventricles. | | | Moderate intracranial arteriosclerosis. Hypodensity in the right | | | basal ganglia may represent a remote appearing infarct. There are | | | mild scattered regions of periventricular and subcortical white | | | matter low density. SCALP/ CALVARIUM: The scalp and skull are | | | intact and are unremarkable. SINUSES / ORBITS/ MASTOIDS: The | | | visible mastoid air cells and paranasal sinuses are clear. The | | | globes and retroconal contents are intact and without evidence of | | | acute abnormality. | | + + + + + | Procedure Note | + + | Peewee, Rad Results In - 11/02/2019 4:14 PM PDT EXAM: CT HEAD WO CONTRAST dated | | 11/02/2019 3:55 PMHISTORY: Emergent Patient - see commentsfallComparison: None.TECHNIQUE: | | Noncontrast CT is performed from the top of calvarium through theskull base. Coronal | | and sagittal reformats are performed.FINDINGS: BRAIN: No areas of increased attenuation | | to suggest intracranial hemorrhage. There is no mass, mass effect, or midline shift. | | There are no abnormalextra-axial fluid or air collections. There is preservation of the | | head-whitedifferentiation at this time. There is mild cerebral atrophy. There | | isappropriate associated prominence of the ventricles. Moderate | | intracranialarteriosclerosis. Hypodensity in the right basal ganglia may represent a | | remoteappearing infarct. There are mild scattered regions of periventricular | | andsubcortical white matter low density. SCALP/ CALVARIUM: The scalp and skull are | | intact and are unremarkable.SINUSES / ORBITS/ MASTOIDS: The visible mastoid air cells | | and paranasal sinusesare clear. The globes and retroconal contents are intact and | | without evidenceof acute abnormality.IMPRESSION: No acute intracranial abnormality | | identified.Mild cerebral atrophy with mild nonspecific white matter disease. | | Mildintracranial arteriosclerosis the bilateral parasellar ICAs.Dictated and Signed by: | | Bradley Cerrato MD Electronically signed: 11/02/2019 4:11 PM | |arteriosclerosis. Hypodensity in the right basal ganglia may represent a remote | |appearing infarct. There are mild scattered regions of periventricular and | |subcortical white matter low density. | | | |SCALP/ CALVARIUM: The scalp and skull are intact and are unremarkable. | | | |SINUSES / ORBITS/ MASTOIDS: The visible mastoid air cells and paranasal sinuses | |are clear. The globes and retroconal contents are intact and without evidence | |of acute abnormality. | | | |IMPRESSION: | |No acute intracranial abnormality identified. | | | |Mild cerebral atrophy with mild nonspecific white matter disease. Mild | |intracranial arteriosclerosis the bilateral parasellar ICAs. | | | |Dictated and Signed by: Bradley Cerrato MD | | Electronically signed: 11/02/2019 4:11 PM | + + + +---------+ + + | Performing | Address | City/State/Zipcode | Phone Number | | Organization | | | | + +---------+ + + | [facility] | | | | + +---------+ + + documented in this encounter Visit Diagnoses + + | Diagnosis | + + | Post concussive syndrome - Primary Postconcussion syndrome | + + | Carotid artery calcification, bilateral | + + documented in this encounter
--- OUTSIDE RECORDS SUMMARY | ~2020-01-14 | XMS | Encounter Summary ---
Demographics + + + | Address | [address] | | | [place] [address] | + + + | Home Phone | | + + + | Preferred Language | Unknown | + + + | Marital Status | Unknown | + + + | Temple Affiliation | Unknown | + + + | Race | White | + + + | Ethnic Group | Unknown | + + + Author + + + | Author | [facility] | | | and [place] | + + + | Organization | [facility] | | | [...] Team Providers + +------+ + | Care Personal Driver Name | Role | Phone | + +------+ + | Lizet Oliva | PCP | | + +------+ + Reason for Visit +--------+--------+ + | Reason | Onset | Comments | | | Date | | +--------+--------+ + | Pain | 09/01/ | | | | 2020 | | +--------+--------+ + Encounter Details +--------+ + + + + | Date | Type | Department | Care Team | Description | +--------+ + + + + | 09/01/ | Telephone | [facility] | Matty Bingham MD | Pain | | 2020 | | NEPHROLOGY [place] | [address] [place] | | | | | [address] [place] | [address] [place], [place] | | | | | [address] [place], [place] | [address] | | | | | [address] | | | | | | [phone] | | | +--------+ + + + [...] this encounter Miscellaneous Notes Telephone Encounter - Matty Bingham MD - 09/02/2019 3:28 PM PDTDear Colleague, The patient called earlier today complaining of leg pain. She was under the impression we'd stopped her Gabapentin, which is not accurate. We called her PCP's office & found out that it was held thru her PCP at the [place], as there was concern about toxicity of this medication i n the setting of her chronic kidney disease (CKD). I called back [phone] ext [phone] & spoke with the RN in charge (Jerilyn) & informed her of the following: I have no objection from the renal perspective for the use of Gabapentin; attention needs t o be given to the dosing of such a medication in a patient with CKD IV (her latest eGFR was 23 on 07/28/2019). The usual dosing in this situation is 100-300 mg twice a day, but I will le ave it totally up to the prescribing provider to decide on the initial dose & titration as t hey see appropriate. Please kindly note that we do not, as a Nephrology team, prescribe or m anage pain/neuropathy medications. Best, MD JONATHAN Short [facility] documented in this enco unter Plan of Treatment +--------+---------+ + + + | Date | Type | Specialty | Care Team | Description | +--------+---------+ + + + | 02/07/ | Office | Sleep Medicine | Vita Roberts | | 2019 | Visit | | ROMELIA Guevara [address] | | | | | | [address] [place] | | | | | | [place] [address] | | | | | | [phone] | | | | | | | | +--------+---------+ + + + | 03/08/ | Office | Cardiology | Denia Nicole | | 2019 | Visit | | BECK Barber [address] | | | | | | [address] [place] | | | | | | [place] [address] | | | | | | [phone] | | | | | | | | +--------+---------+ + + + documented as of this encounter Visit Diagnoses Not on filedocumented in this encounter"
--- OUTSIDE RECORDS SUMMARY | ~2020-01-14 | XMS | Encounter Summary ---
Demographics + + + | Address | [address] | | | [place] [address] | + + + | Home Phone | | + + + | Preferred Language | Unknown | + + + | Marital Status | Unknown | + + + | Bahai Affiliation | Unknown | + + + | Race | White | + + + | Ethnic Group | Unknown | + + + Author + + + | Author | [facility] | | | and [place] | + + + | Organization | [facility] | | | and [place] | + [...] Team Providers + +------+ + | Care Hand Thermal Cutter Name | Role | Phone | + +------+ + | Lizet Oliva | PCP | | + +------+ + Encounter Details +--------+ + + + + | Date | Type | Department | Care Team | Description | +--------+ + + + + | 11/24/ | Imaging | BERNADETTE LEMA | Provider, | | | 2020 | Exam | [facility] | MD Madina [address] | | | | | IMAGING [address] | | | | | [address] [place] | [place] [address] | | | | | [place] [address] | | | | | | [phone] | | | +--------+ + + + [...] | | | | | [place] [address] | | | | | | [phone] | | | | | | | | +--------+---------+ + + + | 03/08/ | Office | Cardiology | Denia Nicole | | | 2019 | Visit | | [facility]ECK Barber [address] | | | | | | [address] [place] | | | | | | [place] [address] | | | | | | [phone] | | | | | | | | +--------+---------+ + + + documented as of this encounter Procedures + +--------+ + + + | Procedure Name | Priori | Date/Time | Associated Diagnosis | Comments | | | ty | | | | + +--------+ + + + | XR KNEE RIGHT 1 - 2 | Routin | 11/13/2019 | | Results for this | | VW | e | 12:05 AM | | procedure are in the | | | | PDT | | results section. | + +--------+ + + + documented in this encounter Results ANGIE Haney Right 1 - 2 Vw (11/13/2019 12:05 AM PDT) + + | Specimen | + + | | + + + + + | Narrative | Performed At | + + + | External films for comparison only | [facility] | | | | | No results will be in the chart. | | + + + + +---------+ + + | Performing | Address | City/State/Zipcode | Phone Number | | Organization | | | | + +---------+ + + | [facility] | | | | + +---------+ + + documented in this encounter Visit Diagnoses Not on filedocumented in this encounter"
--- OUTSIDE RECORDS SUMMARY | ~2020-01-14 | XMS | Encounter Summary ---
Demographics + + + | Address | [address] | | | [place] [address] | + + + | Home Phone | | + + + | Preferred Language | Unknown | + + + | Marital Status | Unknown | + + + | Shinto Affiliation | Unknown | + + + | Race | White | + + + | Ethnic Group | Unknown | + + + Author + + + | Author | [facility] | | | and [place] | + + + | Organization | [facility] | | | and [...] Team Providers + +------+ + | Care Stock Lifter Name | Role | Phone | + +------+ + | Lizet Oliva | PCP | | + +------+ + Reason for Visit +--------+--------+ + | Reason | Onset | Comments | | | Date | | +--------+--------+ + | Other | 11/03/ | records sent - [facility] | | | 2020 | | +--------+--------+ + Encounter Details +--------+ + + + + | Date | Type | Department | Care Team | Description | +--------+ + + + + | 11/03/ | Telephone | [facility] | Graham Black | Other (records sent | | 2019 | | [address] | MD [address] | - [facility]) | | | | [place], | [address] [place] | | | | | [place] [address] | [place] [address] | | | | | [phone] | [phone] | | | | | | | [...] this encounter Miscellaneous Notes Telephone Encounter - Betzaida Arenas RN - 11/04/2019 10:19 AM PDTOffice note from 11-02-[address] Black along with script for Tamiko faxed to [facility] at [phone] .......... .................................Betzaida Arenas RN, on 11/04/19 at 10:20 AM documented in this encounter Plan of Treatment +--------+---------+ + + + | Date | Type | Specialty | Care Team | Description | +--------+---------+ + + + | 02/07/ | Office | Sleep Medicine | Vita Roberts | | 2019 | Visit | | ROMELIA Guevara [address] | | | | | | [address] [place] | | | | | | [place] [address] | | | | | | [phone] | | | | | | | | +--------+---------+ + + + | 03/08/ | Office | Cardiology | Denia Nicole | | 2019 | Visit | | BECK Barber [address] | | | | | | [address] [place] | | | | | | [place] [address] | | | | | | [phone] | | | | | | | | +--------+---------+ + + + documented as of this encounter Visit Diagnoses Not on filedocumented in this encounter"
--- OUTSIDE RECORDS SUMMARY | ~2020-01-14 | XMS | Encounter Summary ---
Demographics + + + | Address | [address] | | | [place] [address] | + + + | Home Phone | | + + + | Preferred Language | Unknown | + + + | Marital Status | Unknown | + + + | Jain Affiliation | Unknown | + + + | Race | White | + + + | Ethnic Group | Unknown | + + + Author + + + | Author | [facility] | | | and [place] | + + + | Organization | [facility] | | | [...] Team Providers + +------+ + | Care Mail Messenger Name | Role | Phone | + +------+ + | Lizet Oliva | PCP | | + +------+ + Reason for Visit +--------+--------+ + | Reason | Onset | Comments | | | Date | | +--------+--------+ + | Other | 11/03/ | records sent - [facility] | | | 2020 | | +--------+--------+ + Encounter Details +--------+ + + + + | Date | Type | Department | Care Team | Description | +--------+ + + + + | 11/03/ | Telephone | [facility] | Graham Black | Other (records sent | | 2019 | | [address] | MD [address] | - [facility]) | | | | [place], | [address] [place] | | | | | [place] [address] | [place] [address] | | | | | [phone] | [phone] | | | | | | | [...] along with script for Tamiko faxed to [facility] at [phone] .......... .................................Betzaida Arenas RN, on 11/04/19 at [...] | | | | | [place] [address] | | | | | | [phone] | | | | | | | | +--------+---------+ + + + | 03/08/ | Office | Cardiology | Denia Nicole | | 2019 | Visit | | BECK Barber [address] | | | | | | [address] [place] | | | | | | [place] [address] | | | | | | [phone] | | | | | | | | +--------+---------+ + + + documented as of this encounter Visit Diagnoses Not on filedocumented in this encounter"
--- OUTSIDE RECORDS SUMMARY | ~2020-01-14 | XMS | Encounter Summary ---
Demographics + + + | Address | [address] | | | [place] [address] | + + + | Home Phone | | + + + | Preferred Language | Unknown | + + + | Marital Status | Unknown | + + + | Latter-Day Affiliation | Unknown | + + + | Race | White | + + + | Ethnic Group | Unknown | + + + Author + + + | Author | [facility] | | | and [place] | + + + | Organization | [facility] | | | [...] Team Providers + +------+ + | Care Lead Assistant Manager Name | Role | Phone | + +------+ + PCP | Unavailable | + +------+ + Encounter Details +--------+ + + + + | Date | Type | Department | Care Team | Description | +--------+ + + + + | 11/28/ | Hospital | [facility] GENER[facility] OP | Maximilian Benoit | | | 2008 | Encounter | CONVERSION | MD Bethanie [address] | | | | | [address] | [address] | | | | | [address] | [facility] [address] | | | | | [place], [place] | [phone] | | | | | [address] | | | | | | [phone] | | | +--------+ + + + [...] 02/07/ | Office | Sleep Medicine | Viat Roberts | | | 2019 | Visit | | ROMELIA Guevara [address] | | | | | | [address] [place] | | | | | | [place] [address] | | | | | | [phone] | | | | | | | | +--------+---------+ + + + | 03/08/ | Office | Cardiology | Denia Nicole | | | 2019 | Visit | | BECK Barber [address] | | | | | | [address] [place] | | | | | | [place] [address] | | | | | | [phone] | | | | | | | | +--------+---------+ + + + documented as of this encounter Visit Diagnoses Not on filedocumented in this encounter"
--- OUTSIDE RECORDS SUMMARY | ~2020-01-14 | XMS | Encounter Summary ---
Demographics + + + | Address | [address] | | | [place] [address] | + + + | Home Phone | | + + + | Preferred Language | Unknown | + + + | Marital Status | Unknown | + + + | Yazidi Affiliation | Unknown | + + + | Race | White | + + + | Ethnic Group | Unknown | + + + Author + + + | Author | [facility] | | | and [place] | + + + | Organization | [facility] | | | [...] Team Providers + +------+ + | Care Thoroughbred Horse Farm Manager Name | Role | Phone | + +------+ + PCP | Unavailable | + +------+ + Encounter Details +--------+ + + + + | Date | Type | Department | Care Team | Description | +--------+ + + + + | 11/13/ | Hospital | [facility] | | | | 2006 | Encounter | MED CTR XRAY [address] | | | | | | [place] | | | | | | [place] [address] | | | | | | [phone] | | | +--------+ + + + [...] 02/07/ | Office | Sleep Medicine | Armando Vita | | | 2019 | Visit | | ROMELIA Guevara [address] | | | | | | [address] [place] | | | | | | [place] [address] | | | | | | [phone] | | | | | | | | +--------+---------+ + + + | 03/08/ | Office | Cardiology | Denia Nicole | | | 2019 | Visit | | BECK Barber [address] | | | | | | [address] [place] | | | | | | [place] [address] | | | | | | [phone] | | | | | | | | +--------+---------+ + + + documented as of this encounter Visit Diagnoses Not on filedocumented in this encounter"
--- OUTSIDE RECORDS SUMMARY | ~2020-01-14 | XMS | Encounter Summary ---
Demographics + + + | Address | [address] | | | [place] [address] | + + + | Home Phone | | + + + | Preferred Language | Unknown | + + + | Marital Status | Unknown | + + + | Bahai Affiliation | Unknown | + + + | Race | White | + + + | Ethnic Group | Unknown | + + + Author + + + | Author | [facility] | | | and [place] | + + + | Organization | [facility] | | | [...] Team Providers + +------+ + | Care Chemist Name | Role | Phone | + +------+ + PCP | Unavailable | + +------+ + Encounter Details +--------+ + + + + | Date | Type | Department | Care Team | Description | +--------+ + + + + | 07/27/ | Hospital | [facility] | Yon Jc MD | | | 2011 | Encounter | HOSPITAL EMERGENCY | | | | | | [address] | | | | | | [place] | | | | | | [address] | | | | | | [phone] | | | +--------+ + + + [...] | | | | | [place] [address] | | | | | | [phone] | | | | | | | | +--------+---------+ + + + | 03/08/ | Office | Cardiology | Denia Nicole | | | 2020 | Visit | | BECK Barber [address] | | | | | | [address] [place] | | | | | | [place] [address] | | | | | | [phone] | | | | | | | | +--------+---------+ + + + documented as of this encounter Visit Diagnoses Not on filedocumented in this encounter"
--- OUTSIDE RECORDS SUMMARY | ~2020-01-14 | XMS | Encounter Summary ---
Demographics + + + | Address | [address] | | | [place] [address] | + + + | Home Phone | | + + + | Preferred Language | Unknown | + + + | Marital Status | Unknown | + + + | Sabianist Affiliation | Unknown | + + + | Race | White | + + + | Ethnic Group | Unknown | + + + Author + + + | Author | [facility] | | | and [place] | + + + | Organization | [facility] | | | [...] Team Providers + +------+ + | Care Bio Medical Technician Name | Role | Phone | + +------+ + | Lizet Oliva | PCP | | + +------+ + Reason for Visit +--------+--------+ + | Reason | Onset | Comments | | | Date | | +--------+--------+ + | Other | 12/08/ | plan of care | | | 2020 | | +--------+--------+ + Encounter Details +--------+ + + + + | Date | Type | Department | Care Team | Description | +--------+ + + + + | 12/08/ | Telephone | [facility] | Denia Nicole | Other (plan of care) | | 2019 | | CARDIOLOGY [address] | [address]ECK [address] | | | | | [place], | [address] [place] | | | | | [place] [address] | [place] [address] | | | | | [phone] | [phone] | | | | | | | [...] Telephone Encounter - Betzaida Arenas RN - 12/10/2019 10:44 AM PDTSpoke with Amirah at [facility], phone [phone]; fax [phone]. She is informed of the instructions. She states that the facility physician can manage the warfarin. She is advised that protocol for warfarin is 5mg by mouth one time daily to be adjusted by PT/INR to be in a range of 2.0-3. 0, diagnosis of Afib. Copy of this note along with office note from 12-07-19 by Denia Nicole PA-C faxed to [facility] at [phone], Sent by routing in [facility] to Dr Bingham. ......... ..................................Betzaida Arenas RN, on 12/10/19 at 10:46 AM PDT elephone Encounter - Betzaida Arenas RN - 12/10/2019 10:36 AM PDTSpoke with Lizet, while talking on the phone someone in the background spoke up to let us know that she is actually in a facility and th ey would need the orders. She is at [facility] in [place]. The nurse was not sure of t he phone or fax number so she advised that she will call back shortly to get the information . ...........................................Betzaida Arenas RN, on 12/10/19 at 10:37 AM P DT elephone Encounter - Anthony Bautista RN - 12/09/2019 8:06 AM PDTLeft message at cell number for veena harris to return my call............................................Anthony Bautista RN, on 12/09/19 at 8:06 AM PDT elephone Encou ntjoaquin - Anthony Bautista RN - 12/09/2019 8:03 AM PDT----- Message from Denia heath PA-C sent at 12/08/2019 4:22 PM PDT ----- I have tried to contact the patient twice to no avail. After her visit yesterday, I further discussed her case with Dr. Black and her nephrologis t Dr. Bingham, and we have a few more recommendations. 1. D/C eliquis due to her CKD 2. Please make arrangements to start warfarin with monitoring locally in [place] 3. She is to follow up with Dr. Bingham (nephrology) within a few weeks 4. Arrange for BNP and BMP 5. Please ensure Dr. Bingham receives a copy of my progress note as well as the labs that wi ll be performed. 6. I will be happy to discuss this further with the patient if she so desires. documented in t his encounter Plan of Treatment +--------+---------+ + + + | Date | Type | Specialty | Care Team | Description | +--------+---------+ + + + | 02/07/ | Office | Sleep Medicine | Vita Roberts | | 2019 | Visit | | ROMELIA Guevara [address] | | | | | | [address] [place] | | | | | | [place] [address] | | | | | | [phone] | | | | | | | | +--------+---------+ + + + | 03/08/ | Office | Cardiology | Denia Nicole | | | 2020 | Visit | | BECK Barber [address] | | | | | | [place] | | | | | | [place] [address] | | | | | | [phone] | | | | | | | | +--------+---------+ + + + documented as of this encounter Visit Diagnoses Not on filedocumented in this encounter"
--- OUTSIDE RECORDS SUMMARY | ~2020-01-14 | XMS | Encounter Summary ---
Demographics + + + | Address | [address] | | | [place] [address] | + + + | Home Phone | | + + + | Preferred Language | Unknown | + + + | Marital Status | Unknown | + + + | Jehovah'S Witness Affiliation | Unknown | + + + | Race | White | + + + | Ethnic Group | Unknown | + + + Author + + + | Author | [facility] | | | and [place] | + + + | Organization | [facility] | | | and [...] Team Providers + +------+ + | Care Healthcare Customer Service Name | Role | Phone | + [...] + + | 08/03/ | Telephone | [facility] | Matty Bingham MD | Other (RBC ua | | 2020 | | NEPHROLOGY [place] | [address] [place] | result) | | | | [address] | [address] [facility], [place] | | | | | [address] [place] [address] | [address] | | | | | [place], [place] | | | | | | [address] | | | | | | [phone] | | | +--------+ + + + [...] Miscellaneous Notes Telephone Encounter - Gabbi [place] Thermostatic Controls Supervisor - 08/04/2019 5:39 PM PDTinter path reports that there were 30 rbc in patients urinalysis will inform Otilia of this. Lab wi ll be faxing new report.Electronically signed by Naomi Beyer at 5:56 PM PDTTelephone Encounter - Gabbi [place] Medical Assistant - 08/04/19 20 5:39 PM PDT----- Message from Teressa Loza sent at 07/29/2019 8:42 AM PST ----- Regarding: Benjamin ammenglenna lab Provider: Otilia Velasco Client Services called states they needed to give a verbal on a amended Urine tiny t results. Please call them back at [phone], you may speak to any of the client services specialis t to get the updated information. Next OV: [facility] DINING CAR WAITER/WAITRESS Consult do cumented in this encounter Plan of Treatment +--------+---------+ + + + | Date | Type | Specialty | Care Team | Description | +--------+---------+ + + + | 02/07/ | Office | Sleep Medicine | Vita Roberts | | | 2019 | Visit | | ROMELIA Guevara [address] | | | | | | [place] [place] | | | | | | [place] [address] | | | | | | [phone] | | | | | | | | +--------+---------+ + + + | 03/08/ | Office | Cardiology | Denia Nicole | | | 2019 | Visit | | BECK Barber [address] | | | | | | [address] [place] | | | | | | [place] [address] | | | | | | [phone] | | | | | | | | +--------+---------+ + + + documented as of this encounter Visit Diagnoses Not on filedocumented in this encounter"
--- OUTSIDE RECORDS SUMMARY | ~2020-01-14 | XMS | Encounter Summary ---
Demographics + + + | Address | [address] | | | [place] [address] | + + + | Home Phone [...] Team Providers + +------+ + | Care Marketing Communications Manager Name | Role | Phone | + +------+ + | Benny James MD | PCP | | + +------+ + Encounter Details +--------+ + + + + | Date | Type | Department | Care Team | Description | +--------+ + + + + | 07/27/ | Orders Only | [facility] | Art, | | | 2019 | | NEPHROLOGY [place] | Naomi Seo | | | | | [address] [place] | Report Specialist | | | | | [address] [place] | | | | | | [address] | | | | | | [phone] | | | +--------+ + + + [...] | | | | | [place] [address] | | | | | | [phone] | | | | | | | | +--------+---------+ + + + | 03/08/ | Office | Cardiology | Denia Nicole | | | 2019 | Visit | | BECK Barber [address] | | | | | | [address] [place] | | | | | | [place] [address] | | | | | | [phone] | | | | | | | [...] + + + | Red Blood | 4.11 | 3.86 - 5.70 | | | | Cells | | [...] + + + + | % | 1 | 0 - 2 % | | | | Basophils, | | | | | | Body Fluid | | | | | + + [...] + + + + | Clarity, | Hazy | | | | | Urine | | | | | + + + + + + | Specific | 1.013 | 1.001 - 1.030 | | | | [place], | | | | | | Urine [...] + + + | Red Blood | 4.68 | 3.86 - 5.70 | | | | Cells | | [...] +-------+ + + + | % | 1 | 0 - 2 [...]
--- OUTSIDE RECORDS SUMMARY | ~2020-01-14 | XMS | Encounter Summary ---
Demographics + + + | Address | [address] | | | [place] [address] | + + + | Home Phone [...] Team Providers + +------+ + | Care Flatwork Washer Name | Role | Phone | + [...] + + | 07/28/ | Documentati | [facility] | Cordova, | Results (07/28/19) | | 2020 | on | NEPHROLOGY JU[place] | Naomi Seo | | | | | [address] | Artificial Limb Fitter | | | | | [address] [facility] [place] | | | | | | [address] | | | | | | [phone] | | | +--------+ + + + [...] | | | | | | [address] | | | | | | [place] [address] | | | | | | [phone] | | | | | | | | +--------+---------+ + + + | 03/08/ | Office | Cardiology | Denia Nicole | | | 2020 | Visit | | BECK Barber [address] | | | | | | [address] [place] | | | | | | [place] [address] | | | | | | [phone] | | | | | | | [...] 1.001 - 1.030 | | | | [place], | | | | | | Urine [...] + + + | Red Blood | 4.34 | 3.80 - 5.10 | [...]
--- OUTSIDE RECORDS SUMMARY | ~2020-01-14 | XMS | Encounter Summary ---
Demographics + + + | Address | [address] | | | [place] [address] | + + + | Home Phone [...] Team Providers + +------+ + | Care Field Reviewer Name | Role | Phone | + +------+ + PCP | Unavailable | + +------+ + Encounter Details +--------+ + + + + | Date | Type | Department | Care Team | Description | +--------+ + + + + | 12/07/ | Hospital | [facility] OP | Maximilian Benoit | | | 2009 | Encounter | CONVERSION | MD Bethanie [address] | | | | | [address] | [address] | | | | | [address] | [place] [address] | | | | | [place], [place] | [phone] | | | | | [address] | | | | | | [phone] | | | +--------+ + + + [...] | | | | | [place] [address] | | | | | | [phone] | | | | | | | | +--------+---------+ + + + | 03/08/ | Office | Cardiology | Denia Nicole | | | 2019 | Visit | | BECK Barber [address] | | | | | | [address] [place] | | | | | | [place] [address] | | | | | | [phone] | | | | | | | | +--------+---------+ + + + documented as of this encounter Visit Diagnoses Not on filedocumented in this encounter"
--- OUTSIDE RECORDS SUMMARY | ~2020-01-14 | XMS | Encounter Summary ---
Demographics + + + | Address | [address] | | | [place] [address] | + + + | Home Phone | | + + + | Preferred Language | Unknown | + + + | Marital Status | Unknown | + + + | Sikhism Affiliation | Unknown | + + + | Race | White | + + + | Ethnic Group | Unknown | + + + Author + + + | Author | [facility] | | | and [place] | + + + | Organization | [facility] | | | [...] Team Providers + +------+ + | Care Truck Driver Helper Name | Role | Phone | [...] | 11/01/ | Emergency | [facility] | Naeem Bruce MD | 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 [facility] Lizet Mcneil Emergency Department Encounter Note [address] [place] [address] PCP:JOEL Salvador [phone] CHIEF COMPLAINT: Chief Complaint [...] HISTORY Past Medical History: Diagnosis Date A-fib ([facility]) CKD (chronic kidney disease) stage 4, GFR 15-29 ml/min ([facility]) 07/28/2019 Diabetes mellitus ([facility]) 07/28/2019 Hypertension 07/28/2019 Nicotine dependence 07/28/2019 Past Surgical History: Procedure Laterality Date HYSTERECTOMY CURRENT MEDICATIONS RN GASTROENTEROLOGY Home Medications Medication Sig albuterol 5 mg/mL [...] were reviewed along with EMS notes and half-way record s if applicable. (See chart for [...] Contact information: [address] [place] [address] LOCATED WITHIN [facility]. Specialty: Emergency Medicine Why: If symptoms worsen Contact information: [address] [place] [address] Naeem Bruce MD 11/02/19 1243 documented in this encou nter Plan of [...] | | | | | | [place] [address] | | | | | | [phone] | | | | | | | | +--------+---------+ + + + | 03/08/ | Office | Cardiology | Denia Nicole | | | 2019 | Visit | | BECK Barber [address] | | | | | | [address] [place] | | | | | | [place] [address] | | | | | | [phone] | | | | | | | [...] | | | RN: | | | [id number] | | | [id number] | | | riteri | | | [...] | | | St. | | | Wann | | | y | | | [...] | | | St. | | | Wann | | | y H. | | [...] | | | St. | | | Wann | | | y H. | | | [place] | | | [place] | | | Emerge | | | ncy | | | Chief | | | Compla | | | int: | | | SOB | | | May | | | 12, | | | 2020 | | | [facility] | | | [facility] | | | Wann | | | y H. | | [...] | | | St. | | | Wann | | | y H. | | [...] | | | St. | | | Wann | | | y H. | | [...] | | | St. | | | Wann | | | y H. | | [...] | | | St. | | | Wann | | | y H. | | [...] | | | St. | | | Wann | | | y H. | | [...] | | | St. | | | Wann | | | y H. | | [...] | | | [place], | | | [id number] | | | [phone] | | | [...] | | | otify/ | | | [id number] | | | [id number] | | | [phone] | | | [id number]- | | | [id number] | | | [id number] | | | [...]
--- OUTSIDE RECORDS SUMMARY | ~2020-01-14 | XMS | Encounter Summary ---
Demographics + + + | Address | [address] | | | [place] [address] | + + + | Home Phone | | + + + | Preferred Language | Unknown | + + + | Marital Status | Unknown | + + + | Alevism Affiliation | Unknown | + + + [...] Team Providers + +------+ + | Care Cna Pct Name | Role | Phone | + [...] + + | 01/04/ | Documentati | [facility] | Cord[place], | Results (01/04/20) | | 2020 | on | NEPHROLOGY JUAN | Naomi Seo | | | | | [address] | Wardrobe Attendant | | | | | [address] [facility] [place] | | | | | | [address] | | | | | | [phone] | | | +--------+ + + + [...] Medicine | Vita Roberts | | | 2020 | Visit | | ROMELIA Guevara [address] | | | | | | [address] [place] | | | | | | [place] [address] | | | | | | [phone] | | | | | | | | +--------+---------+ + + + | 03/08/ | Office | Cardiology | Denia Nicole | | | 2020 | Visit | | BECK Barber [address] | | | | | | [address] [place] | | | | | | [place] [address] | | | | | | [phone] | | | | | | | [...] | 1.013 | | | | | [place], | | | | | | Urine [...]
--- OUTSIDE RECORDS SUMMARY | ~2020-01-14 | XMS | Encounter Summary ---
Demographics + + + | Address | [address] | | | [place] [address] | + + + | Home Phone | | + + + | Preferred Language | Unknown | + + + | Marital Status | Unknown | + + + | Gnosticist Affiliation | Unknown | + + + | Race | White | + + + | Ethnic Group | Unknown | + + + Author + + + | Author | [facility] | | | and [place] | + + + | Organization | [facility] | | | and [...] Team Providers + +------+ + | Care Booster Pump Oiler Name | Role | Phone | + +------+ + | Sharyn Oliva | PCP | | + +------+ + Encounter Details +--------+ + + + + | Date | Type | Department | Care Team | Description | +--------+ + + + + | 09/09/ | Lab | [facility] | Sharyn Oliva | Age-related | | 2018 | Requisition | [facility] | JOEL White 76 | osteoporosis with | | | | [address] | [place] | current pathological | | | | [place] | [place] | fracture of right | | | | [address] | [address] | forearm | | | | [phone] | [phone] | | | | | | | [...] [address] | | | | | | [address] [place] | | | | | | [place] [address] | | | | | | [phone] | | | | | | | | +--------+---------+ + + + | 03/08/ | Office | Cardiology | Denia Nicole | | | 2020 | Visit | | BECK Barber [address] | | | | | | [address] [place] | | | | | | [place] [address] | | | | | | [phone] | | | | | | | [...] Quantitativ | under wrong submitter. | | [facility] | | | e | This quantitative [...] | Test ordered under wrong submitter | [facility] | | | - [facility] | + + + + + + + + | Performing | Address | City/State/Zipcode | Phone Number | | Organization | | | | + + + + + | [facility] | [address] | [place] | [phone] | | [facility] | | [address] | | | - LABORATORY | | | | + + + + + documented in this encounter Visit Diagnoses + + | Diagnosis | + + | Age-related osteoporosis with current pathological fracture of right forearm Senile | | osteoporosis | + + documented in this encounter"
--- OUTSIDE RECORDS SUMMARY | ~2020-01-14 | XMS | Encounter Summary ---
Demographics + + + | Address | [address] | | | [place] [address] | + + + | Home Phone [...] Team Providers + +------+ + | Care Health Center Associate Name | Role | Phone | + [...] + + | 12/08/ | Telephone | [facility] | Denia Nicole | Other (plan of care) | | 2019 | | CARDIOLOGY [address] | BECK [address] | | | | | [place], | [address] [place] | | | | | [place] [address] | [place] [address] | | | | | [phone] | [phone] | | | | | | | [...] 12/10/2019 10:44 AM PDTSpoke with Amirah at [facility], phone [phone]; fax [phone]. She is informed of the instructions. She states that the facility physician can manage the warfarin. She is advised that protocol for warfarin is 5mg by mouth one time daily to be adjusted by PT/INR to be in a range of 2.0-3. 0, diagnosis of Afib. Copy of this note along with office note from 12-07-19 by Denia Nicole PA-C faxed to [facility] at [phone], Sent by routing in [facility] to Dr Bingham. ......... ..................................Betzaida Arenas RN, on 12/10/19 at 10:46 AM PDT elephone Encounter - Betzaida Arenas RN - 12/10/2019 10:36 AM PDTSpoke with Lizet, while talking on the phone someone in the background spoke up to let us know that she is actually in a facility and th ey would need the orders. She is at [facility] in [place]. The nurse was not sure of t [...] to start warfarin with monitoring locally in [place]. She is to follow up with [...] | | | | | [place] [address] | | | | | | [phone] | | | | | | | | +--------+---------+ + + + | 03/08/ | Office | Cardiology | Denia Nicole | | | 2020 | Visit | | BECK Barber [address] | | | | | | [address] [place] | | | | | | [place] [address] | | | | | | [phone] | | | | | | | | +--------+---------+ + + + documented as of this encounter Visit Diagnoses Not on filedocumented in this encounter"
--- OUTSIDE RECORDS SUMMARY | ~2020-01-14 | XMS | Encounter Summary ---
Demographics + + + | Address | [address] | | | [place] [address] | + + + | Home Phone [...] + + + | Author | [facility] | | | and [place] | + + + | Organization | [facility] | | | [...] Team Providers + +------+ + | Care Auto Wheel Alignment Specialist Name | Role | Phone | [...] + + | 11/04/ | Documentati | [facility] | [place], | Results (11/01/19) | | 2020 | on | NEPHROLOGY JUAN | Naomi Seo | | | | | [address] | [facility] | | | | | [address] [facility], [place] | | | | | | [address] | | | | | | [phone] | | | +--------+ + + + [...] | | | | | | [place] [address] | | | | | | [phone] | | | | | | | | +--------+---------+ + + + | 03/08/ | Office | Cardiology | Denia Nicole | | | 2020 | Visit | | BECK Barber [address] | | | | | | [address] [place] | | | | | | [place] [address] | | | | | | [phone] | | | | | | | [...] + + | Blood | + + [place] and Lambda Light Chain Ratio (11/01/2019) + +-------+ + + + | Component | Value | Ref Range | Performed | Pathologist | | | | | At | Signature | + +-------+ + + + | [facility] [place] [facility] | 63.73 | | | | + +-------+ + + + | [facility] | 28.44 | | | | | LIGHT CHAIN | | | | | + +-------+ + + + | [place] | 2.24 | | | | | [...] | 1.010 | | | | | [place], | | | | | | Urine [...]
--- OUTSIDE RECORDS SUMMARY | ~2020-01-14 | XMS | Encounter Summary ---
Demographics + + + | Address | [address] | | | [place] [address] | + + + | Home Phone [...] + + + | Author | [facility] | | | and [place] | + + + | Organization | [facility] | | | [...] Team Providers + +------+ + | Care Pet Feeder Name | Role | Phone | + +------+ + | Lizet Oliva | PCP | | + +------+ + Reason for Visit +--------+ + | Reason | Comments | +--------+ + | Other | Signed letter sent to [place] for patients PCP confirmation received | +--------+ + Encounter Details +--------+ + + + + | Date | Type | Department | Care Team | Description | +--------+ + + + + | 09/01/ | Documentati | [facility] | Art, | Other (Signed letter | | 2020 | on | NEPHROLOGY [place] | Naomi Seo | sent to [place] for | | | | [address] | Skin Toggler | patients PCP | | | | [address] | | confirmation | | | | [place], [place] | | received) | | | | [address] | | | | | | [phone] | | | +--------+ + + + [...] 02/07/ | Office | Sleep Medicine | [facility] | | | 2019 | Visit | | ROMELIA Guevara [address] | | | | | | [address] [place] | | | | | | [place] [address] | | | | | | [phone] | | | | | | | | +--------+---------+ + + + | 03/08/ | Office | Cardiology | Denia Nicole | | | 2019 | Visit | | [facility]ECK Barber [address] | | | | | | [address] [place] | | | | | | [place] [address] | | | | | | [phone] | | | | | | | | +--------+---------+ + + + documented as of this encounter Visit Diagnoses Not on filedocumented in this encounter"
--- OUTSIDE RECORDS SUMMARY | ~2020-01-14 | XMS | Encounter Summary ---
Demographics + + + | Address | [address] | | | [place] [address] | + + + | Home Phone | | + + + | Preferred Language | Unknown | + + + | Marital Status | Unknown | + + + | Temple Affiliation | Unknown | + + + | Race | White | + + + | Ethnic Group | Unknown | + + + Author + + + | Author | [facility] | | | and [place] | + + + | Organization | [facility] | | [...] Team Providers + +------+ + | Care Starter Cup Powder Mixer Name | Role | Phone | + [...] [address] | | | | | | [place], [place] | | | | | | [address] | | | | | | [phone] | | | +--------+ + + + [...] | | | | | [place] [address] | | | | | | [phone] | | | | | | | | +--------+---------+ + + + | 03/08/ | Office | Cardiology | Denia Nicole | | | 2019 | Visit | | BECK Barber [address] | | | | | | [address] [place] | | | | | | [place] [address] | | | | | | [phone] | | | | | | | | +--------+---------+ + + + documented as of this encounter Visit Diagnoses Not on filedocumented in this encounter"
--- OUTSIDE RECORDS SUMMARY | ~2020-01-14 | XMS | Encounter Summary ---
Demographics + + + | Address | [address] | | | [place] [address] | + + + | Home Phone [...] + + + | Author | [facility] | | | and [place] | + + + | Organization | [facility] | | | [...] Team Providers + +------+ + | Care Virtualization Engineer Name | Role | Phone | + +------+ + | Lizet Oliva | PCP | | + +------+ + Reason for Referral Evaluate & Treat (Routine) + + + + + + + | Status | Reason | Specialty | Diagnoses / | Referred By | Referred To | | | | | Procedures | Contact | Contact | + + + + + + + | Pending | Specialty | Sleep | Diagnoses | Nicole, | [facility] | | Review | Services | Medicine | Atrial | Denia Barber, | [facility] | | | Required | | fibrillation | PA-C [address] | [address] | | | | | with RVR | [address] | [address] | | | | | (HCC) [place] | [place], | [place], | | | | | (obstructive | [place] [address] | [place] [address] | | | | | sleep | Phone: | Phone: | | | | | apnea) | [phone] | [phone] | | | | | Procedures | Fax: | Fax: | | | | | 01/11> DOS | [phone] | [phone] | | | | | 02/07> STILL | | | | | | | [facility]END [facility] | | | + + + + + + + Reason for Visit + + + | Reason | Comments | + + + | Follow-up | | + + + | Atrial Fibrillation | | + + + Evaluate & Treat (Routine) + +--------+ + + + + | Status | Reason | Specialty | Diagnoses / | Referred By | Referred To | | | | | Procedures | Contact | Contact | + +--------+ + + + + | Authorized | | Cardiology | Diagnoses | Pj, | [facility] | | | | | A-[facility] ([facility]) | Lizet White, | Cardiology | | | | | Procedures | SALES REPRESENTATIVE [employer] [address] | [address] | | | | | PITCH WORKER | [address] | [place], | | | | | | [address] [place] | [place] | | | | | | [place] | [address] | | | | | | [address] | Phone: | | | | | | Phone: | [phone] | | | | | | [phone] | Fax: | | | | | | Fax: | [phone] | | | | | | [phone] | | + +--------+ + + + + Encounter Details +--------+---------+ + + + | Date | Type | Department | Care Team | Description | +--------+---------+ + + + | 12/06/ | Office | [facility] | NicoleDaisycy | Atrial fibrillation | | 2020 | Visit | CARDIOLOGY [address] | BECK Barber [address] | with RVR (HCC) | | | | [place], | [address] [place] | (Primary Dx); | | | | [place] [address] | [place] [address] | Essential | | | | [phone] | [phone] | hypertension; Acute | | | | | | heart failure with | | | | | | preserved ejection | | | | | | fraction (HCC); JUSTIN | | | | | | (obstructive sleep | | | | | | apnea) | +--------+---------+ + + + Social History [...] in this encounter Patient Instructions Patient Instructions Denia Nicole PA-C - 12/07/2019 1:45 PM PDT1. Decrease amiodar one to 100mg daily 2. Refer to sleep medicine regarding sleep apnea 3. Follow up with your PCP regarding swelling documented in this encounter Progress Notes Denia Nicole PA-C - 12/07/2019 1:45 PM PDTFormatting of this note might be differen t from the original. PATIENT NAME: Lizet Mcneil : 1950: AGE: 69 y.o. REFERRED BY: JOEL Lilly PRIMARY CARE: JOEL Salvador [facility] Nephrology: Dr. Matty Bingham CARDIOLOGY OFFICE VISIT Date of Service: 12/07/19 HISTORY OF PRESENT ILLNESS: Lizet Mcneil is a 69 y.o. female with a history of paroxysmal atrial fibril lation, HFpEF, chronic diastolic dysfunction, diabetes mellitus with diabetic nephropathy, n europathy, and long-term current use of insulin, essential hypertension, CKD stage IV, and o ngoing tobacco use. She is being seen today for further consultation. She presents alone t patricio. She has previously presented with her son Kenan. Lizet presents today for routine follow-up visit. She was seen in initial consultation appr oximately 1 month ago at which time she was referred for an urgent CT of her head, her amiod arone was decreased to 200 mg, and she was started on direct oral anticoagulation. Since this time, she has done relatively well and denies palpitations. She does have episo mejia of paroxysmal nocturnal dyspnea, and complains of daytime sleepiness with inadvertent na pping. With further questioning, patient admits that she was diagnosed with sleep apnea man y years ago but never tried the CPAP machine which was recommended. She denies falls since last visit. She continues to smoke several cigarettes daily. She has had a fair energy level. She has not been very active. She enjoys spending time w ith family in her spare time. She has not had any chest pain or discomfort at rest or with exertion. She has not noticed shortness of breath. She has not had any lightheadedness or dizziness. She has not noticed palpitations. She has bilateral leg swelling due to a fall and broken leg. She does not have a CPAP machine. Pertinent historical information She is referred by JOEL Lilly for [...] BID, with recommendations to discuss further during this consultation. MEDICAL, SURGICAL, AND PERSONAL HISTORY Past Medical History: Diagnosis Date A-fib ([facility]) CKD (chronic kidney disease) stage 4, GFR 15-29 ml/min ([facility]) 07/28/2019 Diabetes mellitus ([facility]) 07/28/2019 Hypertension 07/28/2019 Nicotine dependence 07/28/2019 Past Surgical History: Procedure Laterality Date HYSTERECTOMY History reviewed. No pertinent family history. No [...] tablet Take 1 tablet by mouth Daily. 90 tablet 3 amLODIPine (NORVASC) 5 mg tablet Take 5 mg by mouth Daily. apixaban (ELIQUIS) 5 mg tablet Take 5 mg by mouth 2 times daily. betamethasone dipropionate 0.05% cream Apply 1 Application [...] 40 mg by mouth 2 times daily. Glucosamine 500 MG CAPS Take by mouth. insulin aspart (NOVOLOG PENFILL) 100 units/mL injection [...] Inject 1.8 mg under the skin Daily. lisinopril (PRINIVIL, ZESTRIL) 5 mg tablet Take 5 mg by mouth Daily. metoprolol succinate (TOPROL-XL) 100 mg ER tablet TAKE 1 TABLET BY MOUTH ONCE DAILY FOR ARTIAL FIBRILATION. PLEASE CONTACT PCP FOR FURTHER REFILLS Multiple Vitamins-Minerals (MULTIVITAL PO) Take by mouth. potassium chloride (KLOR-CON) 10 MEQ ER tablet Take 10 mEq by mouth 2 times daily. pramipexole (MIRAPEX) 0.125 MG tablet Take 0.125 mg by mouth Daily. rosuvastatin (CRESTOR) 20 mg tablet Take 20 mg by mouth nightly. SPIRULINA PO Take by mouth. No current facility-administered medications for this visit. ALLERGIES Allergies Allergen Reactions Baclofen Other (See Comments) Unspecified reaction Ciprofloxacin Other (See Comments) Unspecified reaction Sulfa Antibiotics Other (See Comments) Unspecified reaction ROS I have reviewed the Review of Systems form dated today and scanned into the media tab. OBJECTIVE: PHYSICAL EXAM BP 128/70 | Pulse 69 | Resp 12 | Ht 1.676 m (5' 6") | Wt 83.9 kg (185 lb) | BMI 29.86 kg/m Physical Exam Constitutional: She is oriented to person, place, and time. She appears well-developed and well-nourished. No distress. HENT: Head: Normocephalic. Eyes: No scleral icterus. Neck: Normal carotid pulses and no JVD present. Carotid bruit is not present. Cardiovascular: Normal rate, regular rhythm, S1 normal, S2 normal, intact distal pulses and normal pulses. PMI is not displaced. Exam reveals no gallop and no midsystolic click. Murmur heard. Medium-pitched blowing holosystolic murmur is present with a grade of 1/6 at the apex. Pulses: Carotid pulses are 2+ on the [...] There is no abdominal tenderness. Musculoskeletal: General: Edema (2+ LLE) present. Comments: RLE walking boot present Neurological: She is alert and oriented to person, place, and time. Gait normal. Skin: Skin is warm and dry. She is not diaphoretic. No cyanosis. Nails show no clubbing. Psychiatric: She has a normal mood and affect. Her mood appears not anxious. She does not e xhibit a depressed mood. Very talkative Vitals reviewed. ECG: Reviewed by me today notable for normal sinus rhythm, heart rate 69, rightward axis, i ncomplete right bundle branch block, cannot rule out inferior infarct, abnormal ECG. Previously 11/02/2019 sinus bradycardia, heart rate 49, otherwise normal ECG. ECG 10/05/2019 notable for atrial fibrillation, heart rate 101, inferior and lateral T wave abnormalities. LAB RESULTS: LIPID No results found for: CHOL, TRIG, HDL, LDL, CHOLHDL, LDLEX, HDLEX, TRIGEX, CHOLEX CHEMISTRY Lab Results Component Value Date GLU 276 (A) 11/01/2019 GLU 11/01/2019 Comment: large NA 135 11/01/2019 K 4.0 11/01/2019 CL 101 11/01/2019 CO2 25 11/01/2019 CALCIUM 9.8 11/01/2019 AST 11 (A) 04/29/2019 ALT 15 04/29/2019 CREA 3.01 (A) 11/01/2019 BUN 44 (A) 11/01/2019 EGFR 15.0 (A) 11/01/2019 HEMATOLOGY Lab Results Component Value Date WBC 6.3 10/07/2019 HGB 13.2 11/01/2019 HCT 32.9 (L) 10/07/2019 PLT 241 10/07/2019 I reviewed records from [facility] for hospitalization,including H& P, Discharge Summary and lab reports on 10/07/2019. Echocardiogram September 2019 shows left ventricle is normal in size and function. Ejection fract ion is estimated at 60-65%. Grade 2 diastolic dysfunction. Mildly thickened mitral valve wit h mild annular calcification and mild regurgitation. Moderate to severe left atrial enlargem ent. Cardiovascular diagnostic testing reviewed by me with the patient today: CT head October 2019: No acute intracranial abnormality identified. Mild cerebral atrophy with mild nonspecific white matter disease. Mild intracranial arteriosclerosis the bilateral par asellar ICAs. Bradley Cerrato MD ASSESSMENT: 1. Paroxysmal atrial fibrillation - patient initially presented in sinus bradycardia appro ximately 1 week after amiodarone protocol, and was subsequently down titrated to 200 mg PO d aily. Will further reduce her amiodarone to 100 mg. She may benefit from future ambulatory monitoring and possible up titration of metoprolol. Risk of stroke is reviewed today; her risk factors are Congestive Heart Failure/LV dysfunct ion (1), Hx of HTN (1), Diabetes (1), Age 65 to 74 (1) and Female Gender (1), giving her a C [id number] of 4, estimating a 4=4.0% risk of stroke per year in atrial fibrillation. Risk of bleed on anticoagulant is also reviewed today; her risk factors are HTN (1) and >64 YO (1 ) , giving her a HAS-BLED score of 2, patient is at 2-3= Intermediate Risk (4.1-5.8%) for risk of bleed. She is on Eliquis to reduce the risk of stroke. She would benefit from smoki ng cessation. Her Creatinine clearance is 23, and it is best to d/c direct oral anticoagulant due to her renal failure and start warfarin to reduce the risk of stroke. 2. HFpEF - patient has noted grade 2 diastolic dysfunction on recent echocardiogram. She has demonstrated propensity for fluid overload in the context of tachyarrhythmia in the past . With her lower extremity swelling and PND, she would benefit from increase diuretic regim en, however, with her advanced renal disease, and after discussion with Dr. Black, her [facility] cement sprayer helper, I will defer diuretic management to her financial underwriter. I recommend a low s odium diet, and elevation of her lower extremities with consideration to compression socks. I have personally discussed her case with Dr. Bingham her financial underwriter, who has recommended a BMP and follow up in his office. I will also order a BNP as well which may be helpful. 3. Headaches - resolved. Patient states that she initially underwent head CT imaging of h er head following her initial fall but continued to have headaches. Repeat CT of the head re vealed no evidence of SDH and she is no longer suffering from headaches. 4. Tobacco cessation - this was discussed with the patient at length today (> 5 minutes) a nd will benefit from future reinforcement. Patient is contemplating quitting and has cut ba ck to only a few cigarettes per day. 5. Sleep apnea -patient admits to a history of untreated sleep apnea. Recommend referral to sleep medicine for further evaluation and potential CPAP therapy, especially in light of patient's history of JUSTIN, daytime sleepiness, as well as history of atrial fibrillation. PLAN: 1. D/C Eliquis 2. Warfarin to reduce the risk of stroke 3. Refer to sleep medicine 4. Down titrate amiodarone dosing 5. Fall prevention reemphasized 6. Tobacco cessation 7. Low sodium diet 8. Elevate legs, recommend the use of compression socks 9. Follow up with nephrology regarding lower extremity swelling/diuretic management due to patients advanced CKD. 10. BNP and BMP 11. Follow up in 3 months. I spent > 45 minutes face to face with the patient, with over 50% spent in counseling and/o r coordination of care regarding atrial fibrillation, HFpEF, CKD IV, tobacco cessation, as w ell as discussion about sleep apnea. Portions of this report were transcribed using voice recognition software. Every effort wa s made to ensure accuracy; however, inadvertent computerized senior internal auditor errors may be pre sent. Electronically signed by: Denia Nicole PA-C 12/07/19 documented in this encounter Miscellaneous Notes Addendum Note - Betzaida Hodgson RN - 12/07/2019 1:45 PM PDT Addended by: BETZAIDA HODGSON on: 12/09/2019 08:30 AM Modules accepted: Orders documented in this encounter Plan of Treatment +--------+---------+ + + + | Date | Type | Specialty | Care Team | Description | +--------+---------+ + + + | 02/07/ | Office | Sleep Medicine | [facility] | | 2019 | Visit | | ROMELIA Guevara [address] | | | | | | [address] [place] | | | | | | [place] [address] | | | | | | [phone] | | | | | | | | +--------+---------+ + + + | 03/08/ | Office | Cardiology | Denia Nicole | | 2019 | Visit | | BECK Barber [address] | | | | | | [address] [place] | | | | | | [place] [address] | | | | | | [phone] | | | | | | | | +--------+---------+ + + + + + +--------+ + + | Name | Type | Priori | Associated Diagnoses | Order Schedule | | | | ty | | | + + +--------+ + + | * [facility] | Outpatient | Routin | Atrial | Ordered: 12/09/2019 | | Sleep Disorder - AMB | Referral | e | fibrillation with | | | Referral | | | RVR ([facility]) JUSTIN | | | | | | (obstructive sleep | | | | | | apnea) | | + + +--------+ + + documented as of this encounter [...] | | | | PDT | RVR (HCC) Essential | results section. | | | | | hypertension Acute | | | | | | heart failure with | | | | | | preserved ejection | | | | | | fraction (HCC) | | + +--------+ + + + documented in this encounter Results ECG 12 lead (12/07/2019 1:36 PM PDT) [...] MD | | | | | | ([id number]) on 12/09/2019 | | | | | [...] + + | Atrial fibrillation with RVR ([facility]) - Primary Atrial fibrillation | + + | Essential hypertension Unspecified essential hypertension | + + | Acute heart failure with preserved ejection fraction (HCC) | + + | JUSTIN (obstructive sleep apnea) Obstructive sleep apnea (adult) (pediatric) | + + documented in this encounter
--- OUTSIDE RECORDS SUMMARY | ~2020-01-14 | XMS | Encounter Summary ---
Demographics + + + | Address | [address] | | | [place] [address] | + + + | Home Phone | | + + + | Preferred Language | Unknown | + + + | Marital Status | Unknown | + + + | Quaker Affiliation | Unknown | + + + [...] Team Providers + +------+ + | Care Departmental Shipping Clerk Name | Role | Phone | [...] + + | 10/04/ | Hospital | [facility] | Paulo Ayers MD | Paroxysmal atrial | | 2019 - | Encounter | [facility] | [address] | fibrillation ([facility]); | | | | [address] [place] | [place] | Atrial fibrillation | | 10/06/ | | [place] [address] | [id number] | with RVR ([facility]); | | 2019 | | [phone] | | Acute heart failure | | | | | | with preserved | | | | | | ejection fraction | | | | | | ([facility]); CKD (chronic | | | | | | kidney disease) | | | | | | stage 4, GFR 15-29 | | | | | | ml/min ([facility]); | | | | | [...] the original. DISCHARGE SUMMARY Patient Name: Lizet Delgado : 1950 Date of Admission: 10/05/2019 Date [...] E' Septal Velocity 5.38 cm/s MV Deceleration Cherry 700.72 cm/s2 MV Deceleration Time 132.19 msec [...] at least 3 weeks - Hospitalized in [place] for a day in August for rate [...] with RVR, would not ca ll this [place] Diabetes mellitus type 2, insulin dependent with [...] Nicole PA-C In 1 month. Specialties: Physician Deputy Register Of Deeds, Cardiology Contact information: [address] [facility] [address] Discharge Medications New Medications Details [...] by: Travis Copeland MD, 10/07/2019 1:25 PM [facility] documented in this encounter Discharge Instructions Instructions [...] mg by mouth | | 0 | 09/10/19 | | | 40 mg tablet | [...] | | | | | | | ymcl718-615= 2 | | | | | | | qdynj222-689= 3 | | | | | | | ckpig310-415= 4 | | | | | | | units>350= 5 units | | | | | + + + +---------+ + + | insulin glargine | Inject 25 Units | 3 mL | 0 | 05/14/20 | | | (LANTUS SOLOSTAR) | under [...] of this encounter Progress Notes Leo Cerna, Municipal Engineer - 10/07/2019 3:26 PM PDTPHARMACY SERVICES: METOP ROLOL TARTRATE AND WARFARIN PATIENT EDUCATION Subjective/Objective: Met with Lizet Delgado to provide teaching on the following including [...] before initiating an y new medications (e.g., [id number]) WARFARIN Indication for medication Importance of following-up with outpatient [place] clinic for warfarin dosing Importance of continuation [...] before initiating an y new medications (e.g., [id number]) Assessment/Plan: 1. Patient was provided a handout/booklet on Metoprolol Tartrate and Warfarin 2. Patient demonstrated understanding and all questions were answered. 3. Please consult pharmacist for any further medication related education. 4. Thank you. Electronically signed by: Leo Cerna, Municipal Engineer 10/07/2019 3:27 PM Travis Membreno MD - 10/06/2019 4:22 PM PDTFormatting of this note might be different f rom the original. [facility] PMG Hospitalist Progress Note Lizet Delgado is a 69 y.o. female ASSESSMENT and [...] at least 3 weeks - Hospitalized in [place] for a day in August for rate [...] with RVR, would not ca ll this [place] Diabetes mellitus type 2, insulin dependent with [...] ECGs available Confirmed by HILDA WEBB, JOSEPHINE ([id number]) on 10/06/2019 6:26:09 AM POC Glucose Result [...] E' Septal Velocity 5.38 cm/s MV Deceleration Cherry 700.72 cm/s2 MV Deceleration Time 132.19 msec [...] above. Travis Copeland MD 10/06/2019 4:25 PM [facility], [facility] rmD - 10/06/2019 7:30 AM PDT RENAL DOSE ADJUSTMENT PER PHARMACY PROTOCOL: Subjective/Objective: Lizet Delgado is a 69 y.o. year old female [...] Ayers MD - 10/05/2019 10:46 PM PDT [facility] HISTORY AND PHYSICAL Pt. Name/Age/: Lizet Delgado 69 y.o. 1950 Date of admission: 10/05/2019 [...] disease) stage 4, GFR 15-29 ml/min ([facility]) 07/28/2019 Diabetes mellitus ([facility]) 07/28/2019 Hypertension 07/28/2019 Nicotine dependence [...] unless otherwise stated in HPI HOME MEDICATIONS: [facility] Home Medications Medication Sig albuterol 5 mg/mL [...] Darwin l give IV Lasix. Type II [place]: Troponin elevation likely due to rapid ventricular [...] by: Paulo Ayers MD 10/05/2019 11:43 PM [facility] documented in this enc ounter Consult Notes Graham Black MD - 10/07/2019 10:40 AM PDTFormatting of this note might be differe nt from the original. PATIENT NAME: Lizet Delgado : 1950: AGE: 69 y.o. ADMISSION DATE: 10/05/2019 HOSPITAL DAY NUMBER: [id number] PRIMARY CARE: [facility] REFERRING PROVIDER: Dr. Travis Copeland CONSULTING PROVIDER: Mary Black MD [facility] CARDIOLOGY CONSULTATION DATE OF CONSULTATION: 10/07/19 REASON FOR CONSULT: Atrial fibrillation HISTORY OF PRESENT ILLNESS: Lizet Delgado is a 69 y.o. female with a history of paroxysmal atrial fibrillation, t obacco use, IDDM type II, diabetic nephropathy, CKD IV, and HTN. She was admitted to [facility] on 10/05/2019 for Atrial fibrillation with RVR ([facility] She has as sociated heart [...] disease) stage 4, GFR 15-29 ml/min ([facility]) 07/28/2019 Diabetes mellitus ([facility]) 07/28/2019 Hypertension 07/28/2019 Nicotine dependence [...] file Gets together: Not on file Attends worship service: Not on file Active member of [...] E' Septal Velocity 5.38 cm/s MV Deceleration Cherry 700.72 cm/s2 MV Deceleration Time 132.19 msec [...] Female Gender (1), giving her a C [id number] of 5, estimating a 5=6.7% risk of [...] Electronically signed by: Graham Black MD, PhD, FACC 10/07/2019 12:42 PM Portions of this chart may have been created with [employer] voice recognition software. Occasi onal wrong-word or [...] in time to pick-up meds from the [facility]. Prior to discharge Dr. Copeland decided she should probably have a baseline INR and have her f irst dose of coumadin today. INR results faxed to Team Roberth to provide to the coumadin clinic as a baseline. Fax confirmation received. Dispo: Home by self, transported by Son.Electronically signed by: Peggy Gilliam RN 020 5:04 PM lan of Az Simms RN - 10/07/2019 3:53 PM PDTMrcady Delgado discharges to home and is without d [...] has received discharge orders. She is a [facility] patient of [facility] and [facility] Scripts faxed to team Strength and CANDE notifamy osborn that she will need followed in the coumadin clinic. Plan: Home, [place] Her Son is picking her up.Electronically si gned by: Peggy Gilliam RN 10/07/2019 3:34 PM [facility], because Lizet lives in [place] and would like to get on the ro ad. Finally got an answer at [facility] office. The prescriptions are on her d esk, but not signed. RN at [place] states pharmacy closes at 1630. Lizet's Son is in town and re diallo to pick her up. RN agreed to get scripts signed and faxed to the pharmacy [facility], since kajal morrissey can DC her in time to get there by 1600 for the covid screening so she can get up to the p harmacy on time. Plan: Home by self, Son driving her home after meds picked up at the [place].Electronically sign ed by: Peggy Gilliam RN 10/07/2019 [...] appropriatly, will continue to monitor. lan of Care - Chelsey Weaver RN - 10/06/2019 6:38 PM PDTLizet went back into Afib at 0919 this am and back out at 1144. HR per telecasting engineer was 120-140. Lizet stated she felt fatigued [...] but dim. 90-92% on RA. lan of Care - Aníbal Ma Chaplain - 10/06/2019 6:26 PM PDT Spiritual Care Lizet Delgado is a 69 y.o. female who is admitted for Afib. Mechanic Welder had a pleasant visit with the patient. Patient want to smoke in the worst way. I told the patient that isn't going to happen while she is in the hospital. Active listening/pastoral support provided. Prayer was offered. Will see the patient as requested. If there are any other spiritual care issues that arise, please contact brass and wind instrument repairer. lan of Care - Jamin Vieyra [facility] - 10/06/2019 11:44 AM PDTVisited with this patient who was admit edgar with chest pain. The patient is a and is not service connected. She lives in a ground floor apartment with hr little dog in [place]. Patient still drives and alternate s in using a cane and a walker. She has a son living in [place] who will pick her up and take her home. 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 Patient still smokes and will want to return to smoking after her hospital stay.Electro nically signed by: Jamin Vieyra [facility] 10/06/2019 11:50 AM lan of Care - Ana Driscoll RN - 09/23 5:31 AM PDTArrived to [...] | | | | | | [address] | | | | | | [place] [address] | | | | | | [phone] | | | | | | | | +--------+---------+ + + + | 03/08/ | Office | Cardiology | Denia Nicole | | | 2019 | Visit | | [facility] [address] | | | | [address] [place] | | | | | | [place] [address] | | | | | | [phone] | | | | | | | [...] + + | [facility] | [address] | [place] | [phone] | | [facility] | | [address] | | | - LABORATORY | | [...] + | [facility] | [address] | [place] | [phone] | | [facility] | | [address] | | | - LABORATORY | | [...] [address] | [place] | [phone] | | [facility] | | [address] | | | - LABORATORY | | [...] + | [facility] | [address] | [place] | [phone] | | [facility] | | [address] | | | - LABORATORY | | | | + + + + + CBC no Differential (10/07/2019 5:44 AM PDT) + + + + + + | Component | Value | Ref Range | Performed | Pathologist | | | | | At | Signature | + + + + + + | White Blood | 6.3 | 4.0 - 11.0 K/uL | [facility] | | | Cells | | | [facility] | | | | | | MEDICAL | | | | | | CENTER - | | | | | | LABORATORY | | + + + + + + | Red Blood | 3.79 | 3.70 - 5.20 | [facility] | | | Cells | | M/uL | [facility] | [...] | | | Count | | | [facility] | | [...] + | [facility] | [address] | [place] | [phone] | | [facility] | | [address] | | | - LABORATORY | | [...] | | rerun and verified. | | [facility] | | | [...] 2.68 (H) | 0.55 - 1.02 | [facility] | | | | | mg/dL | [facility] | | | | | | MEDICAL | | | | | | CENTER - | | | | | | LABORATORY | | + + + + + + | eGFR, | 18 (L)Comment: | >=60 | [facility] | | | non- | GLOMERULAR FILTRATION | mL/min/1.73m2 | [facility] | | | [place] | RATE,ESTIMATED | | MEDICAL | | | | mL/min/1.15t3Iaih than | | CENTER - | | [...] | 9.9 | 8.7 - 10.4 | [place] | | | | | mg/dL | [facility] | | | | | | MEDICAL [...] [address] | [place] | [phone] | | [facility] | | [address] | | | - LABORATORY | | [...] | | | POC | | | [facility] | | | | | | MEDICAL [...] + | [facility] | [address] | [place] | [phone] | | [facility] | | [address] | | | - LABORATORY | | [...] [address] | [place] | [phone] | | [facility] | | [address] | | | - LABORATORY | | [...] | | | | | | n Cherry | | | | | + +--------+ [...] (TTE) Demographics Patient Name | | | [facility] Room Number 321 | | | [facility] Patient Number [id number] Date of Study | | | 10/06/2019 Visit Number [id number] Referring | | | Physician ORVILLE FULTON | | | Game Master [facility] STEPH[facility] Number Date of | | | 1950 Interpreting ELADIA BLACK MD | | | Physician Age | | | 69 year(s) Nurse Gender Female | | | Stress Knit Tubing Dyer Procedure Type of Study TTE | | | procedure:ECHO Complete. Procedure DateDate: 10/06/2019 Start: 02:51 | | | PM Study Location: [facility] Quality: Adequate visualization | | | [...] + + | Abdoul Vides Results In 10/06/2019 5:21 PM PDT Transthoracic Echocardiography Report | | (TTE) Demographics Patient Name REIDCHAM Room Number 321 | | [facility] Patient Number [id number] Date of Study 10/06/2019 Visit | | Number [id number] Referring Physician ORVILLE FULTON Accession | | [id number] Game Master MARY STEPHENS [facility] Number Date of | | 1950 Interpreting ELADIA BLACK MD | | Physician Age 69 year(s) Nurse Gender Female | | Stress TechnicianProcedureType of Study TTE procedure:ECHO Complete.Procedure | | DateDate: 10/06/2019 Start: 02:51 PMStudy Location: [facility] Quality: Adequate | | visualizationIndications:Atrial fibrillation, unspecified [...] [address] | [place] | [phone] | | [facility] | | [address] | | | - LABORATORY | | [...] + | [facility] | [address] | [place] | [phone] | | [facility] | | [address] | | | - LABORATORY | | [...] + + | [facility] | [address] | [place] | [phone] | | [facility] | | [address] | | | - LABORATORY | | | | + + + + + Magnesium (10/06/2019 5:25 AM PDT) + +-------+ + + + | Component | Value | Ref Range | Performed | Pathologist | | | | | At | Signature | + +-------+ + + + | Magnesium | 1.9 | 1.6 - 2.6 mg/dL | [facility] | | | | | | [facility] [...] ST[facility] | [address] | [place] | [phone] | | [facility] | | [address] | | | - LABORATORY | | | | + + + + + CBC no Differential (10/06/2019 5:25 AM PDT) + + + + + + | Component | Value | Ref Range | Performed | Pathologist | | | | | At | Signature | + + + + + + | White Blood | 7.2 | 4.0 - 11.0 K/uL | [facility] | | | Cells | | | [facility] | | | | | | MEDICAL | | | | | | CENTER - | | | | | | LABORATORY | | + + + + + + | Red Blood | 3.72 | 3.70 - 5.20 | [facility] | | | Cells | | M/uL | [facility] | [...] | nRBC | | K/uL | [facility] | | | | [...] [address] | [place] | [phone] | | [facility] | | [address] | | | - LABORATORY | | [...] | | | | | mmol/L | [facility] | | | | | | MEDICAL | | | | | | CENTER - | | | | | | LABORATORY | | + + + + + + | K | 4.2 | 3.4 - 5.1 | [facility] | | | | | mmol/L | [facility] | | | | | [...] | | | | mg/dL | [facility] | | | | | | MEDICAL | | | | | | CENTER - | | | | | | LABORATORY | | + + + + + + | eGFR, | 17 (L)Comment: | >=60 | [facility] | | | non- | GLOMERULAR FILTRATION | mL/min/1.73m2 | [facility] | | | [place] | RATE,ESTIMATED | | MEDICAL | | | | mL/min/1.70v4Bvly than | | CENTER - | | [...] | | | | | mg/dL | [facility] | | | | | | MEDICAL | | | | | | CENTER - | | | | | | LABORATORY | | + + + + + + | BUN/Creatin | 14.9 | | [facility] | | | ine Ratio | | | [facility] | | | | | | MEDICAL [...] + | [facility] | [address] | [place] | [phone] | | [facility] | | [address] | | | - LABORATORY | | [...] | | | | | | [employer] | | | | | [...] ST. | [address] | [place], [place] | [phone] | | [facility] | | [address] | | | - LABORATORY | | [...] 1,607 (H)Comment: New | <100 pg/mL | [place] | | | | method in use [...] + | [facility] | [address] | [place] | [phone] | | [facility] | | [address] | | | - LABORATORY | | [...] ST. | [address] | [place] | [phone] | | [facility] | | [address] | | | - LABORATORY | | [...] | | | | JOSEPHINE STEVENS MD ([id number]) | | | | | | on [...] | | | | | mg/dL | [facility] | | | | | | MEDICAL | | | | | | CENTER - | | | | | | LABORATORY | | + + + + + + | eGFR, | 19 (L)Comment: | >=60 | [facility] | | | non- | GLOMERULAR FILTRATION | mL/min/1.73m2 | [facility] | | | [place] | RATE,ESTIMATED | | MEDICAL | | | | mL/min/1.67k0Vlow than | | CENTER - | | [...] | | | | | mg/dL | [facility] | | | | | | MEDICAL [...] [address] | [place] | [phone] | | [facility] | | [address] | | | - LABORATORY | | [...] | | | | | | [employer] | | | | | [...] + + | [facility] | [address] | [place] | [phone] | | [facility] | | [address] | | | - LABORATORY | | | | + + + + + documented in this encounter Visit Diagnoses + + | Diagnosis | + + | Atrial fibrillation with RVR ([facility]) - Primary Atrial fibrillation | + + [...] | | | C (101.5 F), Starting Tue | | | 10/05/19 at 2237 | [...] | | | | | | | 4372-3370 Use NIGHT DOSE for | | | | | | | doses scheduled: HS, | | | | | | | Nighttime 9339-0529 If the BG is | | | [...] | | | | | | | 4593-8608 Use NIGHT DOSE for | | | | | | | doses scheduled: HS, | | | | | | | Nighttime 7238-4184 If the BG is | | | [...] PRN, Nicotine Craving, | | | Starting [facility] 10/05/19 at 2250 | | + +---+ | | | + +---+ | ondansetron (ZOFRAN) injection | | | 4 mg 4 mg, Intravenous, EVERY 6 | | | HOURS PRN, Nausea, Vomiting, | | | Starting [facility] 10/05/19 at 2237, | | | First line agent, | | + +---+ | | | + +---+ | pharmacy consult - other | | | medications/reasons PHARMACY | | | CONSULT, Starting [facility] 10/07/19 at | | | 1415, Pharmacy [...] | | | | First dose on Joi 10/07/19 at | | PM PDT | [...]
--- OUTSIDE RECORDS SUMMARY | ~2020-01-14 | XMS | Encounter Summary ---
Demographics + + + | Address | [address] | | | [place] [address] | + + + | Home Phone | | + + + | Preferred Language | Unknown | + + + | Marital Status | Unknown | + + + | Rastafarian Affiliation | Unknown | + + + [...] Team Providers + +------+ + | Care Clinical Documentation Clerk Name | Role | Phone | [...] | | | [address] | [place] [address] | | | | | [place], [place] | [phone] | | | | | [address] | | | | | | [phone] | | | +--------+ + + + [...] | | | | | [place] [address] | | | | | | [phone] | | | | | | | | +--------+---------+ + + + | 03/08/ | Office | Cardiology | Denia Nicole | | | 2019 | Visit | | [facility] [address] | | | | | [address] [place] | | | | | | [place] [address] | | | | | | [phone] | | | | | | | | +--------+---------+ + + + documented as of this encounter Visit Diagnoses Not on filedocumented in this encounter"
--- OUTSIDE RECORDS SUMMARY | ~2020-01-14 | XMS | Clinical Summary ---
Demographics + + + | Address | [address] | | | [place] [address] | + + + | Home Phone [...] Team Providers + +------+ + | Care Braided Band Assembler Name | Role | Phone | [...] | | | | | | | [id number] 2 | | | | | | | | [id number]= 3 | | | | | | | | [id number]= 4 | | | | | | [...] | 20 | | e | | tablet | [...] mouth 3 | | 0 | | 08 | Disco | | (FLEXERIL) 5 MG | times daily. For | | | | 07/15 | ntinu | | tablet | muscle spasms | | | | 20 | ed | | | | | | | | (Danya | | | | | | | | ent | | | | | | | | Not | | | | | | | | Takin | | | | | | | | g) | + + + +---------+------+------+-------+ | Multiple | Take by mouth. | | 0 | | 08/1 | Disco | | Vitamins-Minerals | | | | | 2/20 | ntinu | | (MULTIVITAL PO) | | | | | 20 | ed | | | | | | | | (Danya | | | | | | | | ent | | | | | | | | Not | | | | | | | | Takin | | | | | | | | g) | + + + +---------+------+------+-------+ | amLODIPine | Take 5 mg by mouth | | 0 | | 08/1 | Disco | | (NORVASC) 5 mg | Daily. | | | | 2/20 | ntinu | | tablet | | | | | 20 | ed | | | | | | | | (Danya | | | | | | | | ent | | | | | | | | Not | | | | | | | | Takin | | | | | | | | g) | + + + +---------+------+------+-------+ | Glucosamine 500 MG | Take by mouth. | | 0 | | 08/1 | Disco | | CAPS | | | | | 2/20 | ntinu | | | | | | | 20 | ed | | | | | | | | (Danya | | | | | | | | ent | | | | | | | | Not | | | | | | | | Takin | | | | | | | | g) | + + + +---------+------+------+-------+ | lisinopril | Take 5 mg by mouth | | 0 | | 08/ | Disco | | (PRINIVAIDA JOERIL) | Daily. | | | | 2/20 | ntinu | | 5 mg tablet | | | | | 20 | ed | | | | | | | | (Danya | | | | | | | | ent | | | | | | | | Not | | | | | | | | Takin | | | | | | | | g) | + + + +---------+------+------+-------+ | apixaban (ELIQUIS) | Take 5 mg by mouth 2 | | 0 | | 08/1 | Disco | | 5 mg tablet | times daily. | | | | 2/20 | ntinu | | | | | | | 20 | ed | | | | | | | | (Danya | | | | | | | | ent | | | | | | | | Not | | | | | | | | Takin | | | | | | | | g) | + + + +---------+------+------+-------+ Active Problems [...] Seo | | | | | | Bartender | | +--------+ + + + + | 01/03/ | Documentati | Nephrology | Art | Other ( order sent | | 2019 | on | | Naomi Seo | [facility] | | | | Bartender | confirmation | | | | | | received 01/03/20) | +--------+ + + + + | 12/08/ | Telephone | Cardiology | Denia Nicole | Other (plan of care) | | 2019 | | | [facility] | | +--------+ + + + + | 12/06/ | Office | Cardiology | Denia Nicole | Atrial fibrillation | | 2019 | [...] apnea) | +--------+ + + + + | 11/24/ | Imaging | Radiology | Cass, | | | 2019 | Exam | | MD Madina | | +--------+ + + + + | 11/24/ | Imaging | Radiology | Provider, | | | 2019 | Exam | | MD Madina | | +--------+ + + + + | 11/04/ | Documentati | Nephrology | Art, | Results (11/01/19) | | 2020 | on | | Naomi Seo | | | | | | Bartender | | +--------+ + + + + | 11/03/ | Telephone | Cardiology | Graham Black | Other (records sent | | 2019 | | | MD Anup | - [facility]) | +--------+ + + + + | 11/01/ | Emergency | Emergency Medicine | Naeem Bruce MD | 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); 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, | | | | | | bilateral | +--------+ + + + + | 11/01/ | Office | Cardiology | Graham Black | Atrial fibrillation | 2019 | Visit | | MD Anup | with [facility] ([facility]) | | | | | | (Primary [...] disorder | +--------+ + + + + from [...] | | | | | [place] [address] | | | | | | [phone] | | | | | | | | +--------+---------+ + + + | 03/08/ | Office | Cardiology | Denia Nicole | | | 2019 | Visit | | [facility] [address] | | | | | | [address] [place] | | | | | | [place] [address] | | | | | | [phone] | | | | | | | [...] | | | | PDT | [facility] ([facility]) Essential | results section. | | | | | hypertension Acute | | | | | | heart failure with | | | | | | preserved ejection | | | | | | fraction ([facility]) | | + +--------+ + + + | XR KNEE RIGHT 1 - 2 | Routin | 11/13/2019 | | Results for this | | VW | e | 12:05 AM | | procedure are in the | | | | PDT | | results section. | + +--------+ + + + | XR ANKLE RIGHT 3 + | Routin | 11/13/2019 | | Results for this | | VW | e | 12:00 AM | | procedure are [...] | | | RN: | | | [id number] | | | [id number] | | | riteri | | | [...] | | | St. | | | Lillian | | | y | | | [...] | | | St. | | | Lillian | | | y H. | | [...] | | | St. | | | [place] | | | y H. | | | [place] | | | [place] | | | Emerge | | | ncy | | | Chief | | | Compla | | | int: | | | SOB | | | May | | | 12, | | | 2020 | | | [facility] | [facility] | | | [place] | | | y H. | | [...] | | | St. | | | [place] | | | y H. | | [...] | | | St. | | | [place]illian | | | y H. | | [...] | | | St. | | | [place] | | | y H. | | [...] | | | St. | | | [place]illian | | | y H. | | [...] | | | St. | | | [place]illian | | | y H. | | [...] | | | St. | | | [place]illian | | | y H. | | [...] | | | SAMMY, | | | [id number] | | | [id number] | | | [...] | | | otify/ | | | [id number] | | | [id number] | | | [id number] | | | -[id number]- | | | [id number] | | | [id number] | | | [...] | | | | [facility] ([facility]) | | + +--------+ + + + | LABS - EXTERNAL SCAN | | 11/01/2019 | | Results for this [...] from Last 3 Months Results External Lab: PTH, Intact (01/04/2020) + [...] | + + | | + + CBC with Manual Differential (01/04/2020)Only the most recent of 2 results within [...] Blood | + + Protein/Creatinine Ratio, Urine (01/04/2020)Only the most recent of 2 results within the ti oh period is included. + + + + [...] + | Urine | + + Urinalysis (01/04/2020)Only the most recent of 2 results within the time period is included . + + + + + + | [...] | 1.013 | | | | | [place], | | | | | | Urine [...] | Urine | + + Uric Acid (01/04/2020)Only the most recent of 2 results within [...] Blood | + + Renal Function Panel (01/04/2020)Only the most recent of 2 results within the time period i s included. + + + + + + [...] + ECG 12 lead (12/07/2019 1:36 PM PDT)Only the most recent of 2 [...] | | | | | TOVA WEBB, ACSANDRA | | | | | | ([id number]) on 12/09/2019 | | | | | [...] | | | + +---------+ + + XR Knee Right 1 - 2 Vw (11/13/2019 12:05 [...] | | | + +---------+ + + XR Ankle Right 3 + Vw (11/13/2019 12:00 AM PDT) + + | Specimen | [...] | | + +---------+ + + CT Cervical Spine wo Contrast (11/02/2019 3:57 [...] | 3:55 PMHISTORY: [facility]PARISON: | | None.PROTOCOL: Thin [...] ICAs.Dictated and Signed by: | | Bradley Cerraot MD Electronically signed: 11/02/2019 4:11 PM | [...] + + | Blood | + + LABS - EXTERNAL SCAN (11/01/2019 12:00 AM PDT) + + + | Narrative | Performed At | + + + | Ordered by an | | | unspecified provider. | | + + + [place] and Lambda Light Chain Ratio (11/01/2019) + +-------+ + + + | Component | Value | Ref Range | Performed | Pathologist | | | | | At | Signature | + +-------+ + + + | [place] [facility] | 63.73 | | | | + +-------+ + + + | [facility] | 28.44 | | | | | LIGHT CHAIN | | | | | + +-------+ + + + | [place]/[facility] | 2.24 | | | | | [...] +---------+--------+ | [employer] | [place] | [id number] | 08/02/19 | | | Indemn | | | COMMUN | | 20-Pre | | | ity | | | ITY | | sent | | | | | | CARE | | | | | | + +--------+ +--------+ +---------+--------+ | [employer] | [place] | [id number] | 08/02/19 | | | Indemn | | | NS | | 20-Pre | | | ity | | | ADMIN | | sent | | | | | | [place] | | | | | | | | [place] | | | | | | + +--------+ +--------+ +---------+--------+ | [employer]MIN | [place] | [id number] | | | | Indemn | | | NS | | 006-Pr | | | ity | | | ADMIN | | esent | | | | | | [place] | | | | | | | | [place] | | | | | | + +--------+ +--------+ +---------+--------+ | [employer] | [place] | [id number] | | | | Indemn | | | COMMUN | | 016-Pr | | | ity | | | ITY | | esent | | | | | | CARE | | | | | | + +--------+ +--------+ +---------+--------+ | MEDICARE | MEDICA | [id number] | | [phone] | | Medica | [...] [place] | | | 7 (Home) | [address] | + +--------+ +--------+ + + | Lizet Mcneil | Person | Self [birth year] | [address] | | [place] | al/Fam | | [phone] | [phone] | [address] [place], [place] | | | ricardo | | | 7 (Home) | [address] | + +--------+ +--------+ + + Advance Directives + + + + + | Type | Date Recorded | Patient | Explanation | | | | Experimental Assembler | | + + + + + | Power of | | | | | Sales And Service Technician | | | | + + + [...]
--- OUTSIDE RECORDS SUMMARY | ~2020-01-14 | XMS | Encounter Summary ---
Demographics + + + | Address | [address] | | | [place] [address] | + + + | Home Phone [...] Team Providers + +------+ + | Care Oil Well Shooter Name | Role | Phone | + [address] | | | | | | [place], [place] | | | | | | [address] | | | | | | [phone] | | | +--------+ + + + [...] | | | | | [place] [address] | | | | | | [phone] | | | | | | | | +--------+---------+ + + + | 03/08/ | Office | Cardiology | Denia Nicole | | | 2019 | Visit | | [facility] [address] | | | | | | [address] [place] | | | | | | [place] [address] | | | | | | [phone] | | | | | | | | +--------+---------+ + + + documented as of this encounter Visit Diagnoses Not on filedocumented in this encounter"
--- OUTSIDE RECORDS SUMMARY | ~2020-01-14 | XMS | Encounter Summary ---
Demographics + + + | Address | [address] | | | [place] [address] | + + + | Home Phone | | + + + | Preferred Language | Unknown | + + + | Marital Status | Unknown | + + + | Zoroastrian Affiliation | Unknown | + + + | Race | White | + + + | Ethnic Group | Unknown | + + + Author + + + | Author | [facility] | | | and [place] | + + + | Organization | [facility] | | [...] Team Providers + +------+ + | Care Scheduling Assistant Name | Role | Phone | [address] | | | | | | [place], [place] | | | | | | [address] | | | | | | [phone] | | | +--------+ + + + [...] | | | | | [place] [address] | | | | | | [phone] | | | | | | | | +--------+---------+ + + + | 03/08/ | Office | Cardiology | Denia Nicole | | | 2019 | Visit | | [facility] [address] | | | | | | [address] [place] | | | | | | [place] [address] | | | | | | [phone] | | | | | | | | +--------+---------+ + + + documented as of this encounter Visit Diagnoses Not on filedocumented in this encounter"
--- OUTSIDE RECORDS SUMMARY | ~2020-01-14 | XMS | Encounter Summary ---
Demographics + + + | Address | [address] | | | [place] [address] | + + + | Home Phone [...] Team Providers + +------+ + | Care Gauge And Instrument Inspector Name | Role | Phone | + +------+ + | Lizet Oliva | PCP | | + +------+ + Reason for Visit +--------+ + | Reason | Comments | +--------+ + | Other | Signed letter sent to [place] for patients PCP confirmation received | +--------+ + Encounter Details +--------+ + + + + | Date | Type | Department | Care Team | Description | +--------+ + + + + | 09/01/ | Documentati | [facility] | Art, | Other (Signed letter | | 2020 | on | NEPHROLOGY [place] | Naomi Seo | sent to [place] for | | | | [address] | Director Product Development | patients PCP | | | | [address] | | confirmation | | | | [place], [place] | | received) | | | | [address] | | | | | | [phone] | | | +--------+ + + + [...] | | | | | | [place] [address] | | | | | | [phone] | | | | | | | | +--------+---------+ + + + | 03/08/ | Office | Cardiology | Denia Nicole | | | 2019 | Visit | | [facility] [address] | | | | | | [address] [place] | | | | | | [place] [address] | | | | | | [phone] | | | | | | | | +--------+---------+ + + + documented as of this encounter Visit Diagnoses Not on filedocumented in this encounter"
--- OUTSIDE RECORDS SUMMARY | ~2020-01-14 | XMS | Encounter Summary ---
Demographics + + + | Address | [address] | | | [place] [address] | + + + | Home Phone [...] + + + | Author | [facility] | | | and [place] | + + + | Organization | [facility] | | [...] Team Providers + +------+ + | Care Financial Reporting Consultant Name | Role | Phone | + [...] | | | [address] [place] | [place] [address] | | | | | [place] [address] | | | | | | [phone] | | | +--------+ + + + [...] | | | | | [place] [address] | | | | | | [phone] | | | | | | | | +--------+---------+ + + + | 03/08/ | Office | Cardiology | Denia Nicole | | | 2019 | Visit | | [facility] [address] | | | | | | [address] [place] | | | | | | [place] [address] | | | | | | [phone] | | | | | | | [...] + documented in this encounter Results ANGIE Tolentino 3 + Vw (11/13/2019 12:00 AM PDT) [...]
--- OUTSIDE RECORDS SUMMARY | ~2020-01-14 | XMS | Encounter Summary ---
Demographics + + + | Address | [address] | | | [place] [address] | + + + | Home Phone | | + + + | Preferred Language | Unknown | + + + | Marital Status | Unknown | + + + | Hindu Affiliation | Unknown | + + + [...] Team Providers + +------+ + | Care Stone Belt Sander Name | Role | Phone | + [address] | | | | | | [place], [place] | (Fax) | | | | | [address] | | | | | | [phone] | | | +--------+ + + + [...] | | | | | [place] [address] | | | | | | [phone] | | | | | | | | +--------+---------+ + + + | 03/08/ | Office | Cardiology | Denia Nicole | | | 2019 | Visit | | [facility] [address] | | | | | | [address] [place] | | | | | | [place] [address] | | | | | | [phone] | | | | | | | | +--------+---------+ + + + documented as of this encounter Visit Diagnoses Not on filedocumented in this encounter"
--- OUTSIDE RECORDS SUMMARY | ~2020-01-14 | XMS | Encounter Summary ---
Demographics + + + | Address | [address] | | | [place] [address] | + + + | Home Phone | | + + + | Preferred Language | Unknown | + + + | Marital Status | Unknown | + + + | Congregational Affiliation | Unknown | + + + [...] Team Providers + +------+ + | Care Engraver Hand Hard Metals Name | Role | Phone | + [...] + + | 11/04/ | Documentati | [facility] | [place], | Results (11/01/19) | | 2020 | on | NEPHROLOGY JUAN | Naomi Seo | | | | | [address] | Psychologist Industrial Organizational | | | | | [address] [facility] [place] | | | | | | [address] | | | | | | [phone] | | | +--------+ + + + [...] | | | | | | [place] [address] | | | | | | [phone] | | | | | | | | +--------+---------+ + + + | 03/08/ | Office | Cardiology | Denia Nicole | | | 2020 | Visit | | [facility] [address] | | | | | | [address] [place] | | | | | | [place] [address] | | | | | | [phone] | | | | | | | [...] + + | Blood | + + [place] and Lambda Light Chain Ratio (11/01/2019) + +-------+ + + + | Component | Value | Ref Range | Performed | Pathologist | | | | | At | Signature | + +-------+ + + + | [place] [facility] | 63.73 | | | | + +-------+ + + + | [facility] | 28.44 | | | | | LIGHT CHAIN | | | | | + +-------+ + + + | [place] | 2.24 | | | | | [...] | 1.010 | | | | | [place], | | | | | | Urine [...]
--- OUTSIDE RECORDS SUMMARY | ~2020-01-14 | XMS | Encounter Summary ---
Demographics + + + | Address | [address] | | | [place] [address] | + + + | Home Phone | | + + + | Preferred Language | Unknown | + + + | Marital Status | Unknown | + + + | Taoist Affiliation | Unknown | + + + | Race | White | + + + | Ethnic Group | Unknown | + + + Author + + + | Author | [facility] | | | and [place] | + [...] Team Providers + +------+ + | Care Recovery Coordinator Name | Role | Phone | [address] | | | | | | [place], [place] | (Fax) | | | | | [address] | | | | | | [phone] | | | +--------+ + + + [...] | | | | | [place] [address] | | | | | | [phone] | | | | | | | | +--------+---------+ + + + | 03/08/ | Office | Cardiology | Denia Nicole | | | 2019 | Visit | | [facility] [address] | | | | | | [address] [place] | | | | | | [place] [address] | | | | | | [phone] | | | | | | | | +--------+---------+ + + + documented as of this encounter Visit Diagnoses Not on filedocumented in this encounter"
--- OUTSIDE RECORDS SUMMARY | ~2020-01-14 | XMS | Encounter Summary ---
Demographics + + + | Address | [address] | | | [place] [address] | + + + | Home Phone | | + + + | Preferred Language | Unknown | + + + | Marital Status | Unknown | + + + | Jewish Affiliation | Unknown | + + + [...] Team Providers + +------+ + | Care Overlay Operator Name | Role | Phone | + +------+ + | Lizet Oliva | PCP | | + +------+ + Encounter Details +--------+ + + + + | Date | Type | Department | Care Team | Description | +--------+ + + + + | 08/02/ | Orders Only | [facility] | Matty Bingham MD | Essential | | 2020 | | NEPHROLOGY [place] | [address] [place] | hypertension | | | | [address] | [address] [place], [place] | (Primary Dx); CKD | | | | [address] | [address] | (chronic kidney | | | | [place], [place] | | disease) stage 4, | | | | [address] | | GFR 15-29 ml/min | | | | [phone] | | (HCC); Nephrotic | | | [...] | | | | | [place] [address] | | | | | | [phone] | | | | | | | | +--------+---------+ + + + | 03/08/ | Office | Cardiology | Denia Nicole | | | 2020 | Visit | | [facility] [address] | | | | | | [address] [place] | | | | | | [place] [address] | | | | | | [phone] | | | | | | | [...] ml/min | | | | | | ([facility]) Nephrotic | | | | [...] ml/min | | | | | | ([facility]) Nephrotic | | | | [...]
--- OUTSIDE RECORDS SUMMARY | ~2020-01-14 | XMS | Encounter Summary ---
Demographics + + + | Address | [address] | | | [place] [address] | + + + | Home Phone [...] Team Providers + +------+ + | Care Condemnation Engineer Name | Role | Phone | + +------+ + PCP | Unavailable | + +------+ + Encounter Details +--------+ + + + + | Date | Type | Department | Care Team | Description | +--------+ + + + + | 07/27/ | Hospital | [facility] | Yon Jc MD | | | 2011 | Encounter | HOSPITAL EMERGENCY | | | | | | [address] | | | | | | [address] [employer] [place] | | | | | | [address] | | | | | | [phone] | | | +--------+ + + + [...] | | | | | [place] [address] | | | | | | [phone] | | | | | | | | +--------+---------+ + + + | 03/08/ | Office | Cardiology | Denia Nicole | | | 2020 | Visit | | [facility] [address] | | | | | | [address] [place] | | | | | | [place] [address] | | | | | | [phone] | | | | | | | | +--------+---------+ + + + documented as of this encounter Visit Diagnoses Not on filedocumented in this encounter"
--- OUTSIDE RECORDS SUMMARY | ~2020-01-14 | XMS | Encounter Summary ---
Demographics + + + | Address | [address] | | | [place] [address] | + + + | Home Phone [...] | Author | [facility] | | | and [place] | + + + | Organization | [facility] | | | and [...] Team Providers + +------+ + | Care Conditioning Yard Supervisor Name | Role | Phone | [...] + + | 01/03/ | Documentati | [facility] | Art, | Other (US order sent | | 2020 | on | NEPHROLOGY JUAN | Naomi Seo | to .A imaging | | | | [address] | Prime Minister | confirmation | | | | [address] [place], [place] | | received 01/03/20) | | | | [address] | | | | | | [phone] | | | +--------+ + + + [...] | | | | | [place] [address] | | | | | | [phone] | | | | | | | | +--------+---------+ + + + | 03/08/ | Office | Cardiology | Denia Nicole | | | 2019 | Visit | | [facility] [address] | | | | | | [address] [place] | | | | | | [place] [address] | | | | | | [phone] | | | | | | | | +--------+---------+ + + + documented as of this encounter Visit Diagnoses Not on filedocumented in this encounter"
--- OUTSIDE RECORDS SUMMARY | ~2020-01-14 | XMS | Encounter Summary ---
Demographics + + + | Address | [address] | | | [place] [address] | + + + | Home Phone [...] Team Providers + +------+ + | Care Diversity Manager Name | Role | Phone | [...] | Encounter | CONVERSION | MD Bethanie [address] | | | | | [address] | [address] | | | | | [address] | [place] [address] [facility] [address] | | | | | [place], [place] | [phone] | | | | | [address] | | | | | | [phone] | | | +--------+ + + + [...] | | | | | | [place] [address] | | | | | | [phone] | | | | | | | | +--------+---------+ + + + | 03/08/ | Office | Cardiology | Denia Nicole | | | 2019 | Visit | | [facility] [address] | | | | | | [address] [place] | | | | | | [place] [address] | | | | | | [phone] | | | | | | | | +--------+---------+ + + + documented as of this encounter Visit Diagnoses Not on filedocumented in this encounter"
--- OUTSIDE RECORDS SUMMARY | ~2020-01-14 | XMS | Encounter Summary ---
Demographics + + + | Address | [address] | | | [place] [address] | + + + | Home Phone [...] Team Providers + +------+ + | Care Soundscriber Mechanic Name | Role | Phone | + +------+ + PCP | Unavailable | + +------+ + Encounter Details +--------+ + + + + | Date | Type | Department | Care Team | Description | +--------+ + + + + | 01/17/ | Hospital | [facility] | Maximilian Benoit | | | 2008 | Encounter | HOSPITAL XRAY [address] | [address] | | | | | [address] | [address] | | | | | [address] | [place] [address] | | | | | [address] | [phone] | | | | | [phone] | | | +--------+ + + + [...] | | | | | | [place] [address] | | | | | | [phone] | | | | | | | | +--------+---------+ + + + | 03/08/ | Office | Cardiology | Denia Nicole | | | 2019 | Visit | | [facility] [address] | | | | | | [address] [place] | | | | | | [place] [address] | | | | | | [phone] | | | | | | | | +--------+---------+ + + + documented as of this encounter Visit Diagnoses Not on filedocumented in this encounter"
--- OUTSIDE RECORDS SUMMARY | ~2020-01-14 | XMS | Encounter Summary ---
Demographics + + + | Address | [address] | | | [place] [address] | + + + | Home Phone [...] Team Providers + +------+ + | Care Second Baker Name | Role | Phone | + [...] + + | 10/04/ | Hospital | [facility] | Paulo Ayers MD | Paroxysmal atrial | | 2019 - | Encounter | MED CTR SURGICAL | [address] | fibrillation ([facility]); | | | | [address] [place] | [place] | Atrial fibrillation | | 10/06/ | | [place] [address] | [id number] | with RVR ([facility]); | | 2019 | | [phone] | | Acute heart failure | | | | | | with preserved | | | | | | ejection fraction | | | | | | ([facility]); CKD (chronic | | | | | | kidney disease) | | | | | | stage 4, GFR 15-29 | | | | | | ml/min ([facility]); | | | | | | [...] E' Septal Velocity 5.38 cm/s MV Deceleration Luna 700.72 cm/s2 MV Deceleration Time 132.19 msec [...] at least 3 weeks - Hospitalized in [place] for a day in August for rate [...] with RVR, would not ca ll this [place] Diabetes mellitus type 2, insulin dependent with [...] Nicole PA-C In 1 month. Specialties: Physician Manager Purchasing, Cardiology Contact information: [address] [facility] [address] Discharge Medications New Medications Details [...] by: Travis Copeland MD, 10/07/2019 1:25 PM [facility] documented in this encounter Discharge Instructions [...] | | | | | | | [id number]= 2 | | | | | | | [id number]= 3 | | | | | | | -737= 4 | | | | | | [...] of this encounter Progress Notes Leo Cerna, Floral Associate - 10/07/2019 3:26 PM PDTPHARMACY SERVICES: METOP [...] before initiating an y new medications (e.g., [id number]) WARFARIN Indication for medication Importance of following-up with outpatient [place] clinic for warfarin dosing Importance of continuation [...] before initiating an y new medications (e.g., lpae-[id number]-[id number]) Assessment/Plan: 1. Patient was provided a handout/booklet on Metoprolol Tartrate and Warfarin 2. Patient demonstrated understanding and all questions were answered. 3. Please consult pharmacist for any further medication related education. 4. Thank you. Electronically signed by: Leo Cerna, Floral Associate 10/07/2019 3:27 PM Travis Membreno MD - 10/06/2019 4:22 PM PDTFormatting of this note might be different f rom the original. [facility] PMG Hospitalist Progress Note Lizet Delgado is [...] at least 3 weeks - Hospitalized in [place] for a day in August for rate [...] with RVR, would not ca ll this [place] Diabetes mellitus type 2, insulin dependent with [...] ECGs available Confirmed by HILDA WEBB, JOSEPHINE ([id number]) on 10/06/2019 6:26:09 AM POC Glucose Result [...] E' Septal Velocity 5.38 cm/s MV Deceleration Luna 700.72 cm/s2 MV Deceleration Time 132.19 msec [...] above. Travis Copeland MD 10/06/2019 4:25 PM [facility] Vicente Llanes, [facility] rmD - 10/06/2019 7:30 AM PDT [...] Ayers MD - 10/05/2019 10:46 PM PDT [facility] HISTORY AND PHYSICAL Pt. Name/Age/: Lizet Delgado [...] stage 4, GFR 15-29 ml/min ([facility]) 07/28/2019 Diabetes mellitus ([facility]) 07/28/2019 Hypertension 07/28/2019 Nicotine dependence 07/28/2019 History reviewed. No pertinent surgical history. FAMILY HISTORY: family history is not on file. SOCIAL HISTORY: reports that she has been smoking cigars. She has been smoking about 0.50 packs per day. S he has never used smokeless tobacco. REVIEW OF SYSTEMS: All systems were reviewed and were negative unless otherwise stated in HPI HOME MEDICATIONS: [facility] Home Medications Medication Sig albuterol 5 mg/mL [...] Darwin l give IV Lasix. Type II HI: Troponin elevation likely due to rapid ventricular [...] by: Paulo Ayers MD 10/05/2019 11:43 PM [facility] documented in this enc ounter Consult Notes Graham Black MD - 10/07/2019 10:40 AM PDTFormatting of this note might be differe nt from the original. PATIENT NAME: Lizet Delgado : 1950: AGE: 69 y.o. ADMISSION DATE: 10/05/2019 HOSPITAL DAY NUMBER: [id number] PRIMARY CARE: [facility] REFERRING PROVIDER: Dr. Travis Copeland CONSULTING PROVIDER: Mary Black MD [facility] CARDIOLOGY CONSULTATION DATE OF CONSULTATION: 10/07/19 REASON FOR CONSULT: Atrial fibrillation HISTORY OF PRESENT ILLNESS: Lizet Delgado is a 69 y.o. female with a history of paroxysmal atrial fibrillation, t obacco use, IDDM type II, diabetic nephropathy, CKD IV, and HTN. She was admitted to [facility] on 10/05/2019 for Atrial fibrillation with RVR ([facility]). She has as sociated heart failure with [...] stage 4, GFR 15-29 ml/min ([facility]) 07/28/2019 Diabetes mellitus ([facility]) 07/28/2019 Hypertension 07/28/2019 Nicotine dependence 07/28/2019 CURRENT [...] E' Septal Velocity 5.38 cm/s MV Deceleration Luna 700.72 cm/s2 MV Deceleration Time 132.19 msec [...] Female Gender (1), giving her a C [id number] of 5, estimating a 5=6.7% risk of [...] this chart may have been created with [employer] voice recognition software. Occasi onal wrong-word or [...] in time to pick-up meds from the [facility]. Prior to discharge Dr. Copeland decided [...] has received discharge orders. She is a [facility] patient of [facility] and [facility] Scripts faxed to team Strength and CANDE notifamy osborn that she will need followed in the coumadin clinic. Plan: Home, vegetable picker prescriptions from the [place]. Her Son is picking her up.Electronically si gned by: Peggy Gilliam RN 10/07/2019 3:34 PM [facility], because Lizet lives in [place] and would like to get on the ro ad. Finally got an answer at [facility] office. The prescriptions are on her d esk, but not signed. RN at [place] states pharmacy closes at 1630. Lizet's Son [...] home after meds picked up at the [place].Electronically sign ed by: Peggy Gilliam RN 10/07/2019 [...] and back out at 1144. HR per telecommunication engineer was 120-140. Lizet stated she felt [...] y.o. female who is admitted for Afib. Aircraft Delivery Checker had a pleasant visit with the patient. Patient want to smoke in the worst way. I told the patient that isn't going to happen while she is in the hospital. Active listening/pastoral support provided. Prayer was offered. Will see the patient as requested. If there are any other spiritual care issues that arise, please contact natural gas field processing supervisor. lan of Care - Jamin Vieyra [facility] - 10/06/2019 11:44 AM PDTVisited with this patient who was admit edgar with chest pain. The patient is a and is not service connected. She lives in a ground floor apartment with hr little dog in [place]. Patient still drives and alternate s in using a cane and a walker. She has a son living in [place] who will pick her up and take her home. 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 Patient still smokes and will want to return to smoking after her hospital stay.Electro nically signed by: Jamin Vieyra [facility] 10/06/2019 11:50 AM lan of Care [...] | | 2019 | Visit | | ROMELAI Guevara [address] | | | | | | [address] | | | | | | [place] [address] | | | | | | [phone] | | | | | | | | +--------+---------+ + + + | 03/08/ | Office | Cardiology | Denia Nicole | | | 2019 | Visit | | BECK Barber [address] | | | | | | [address] [place] | | | | | | [place] [address] | | | | | | [phone] | | | | | | | [...] [address] | [place] | [phone] | | [facility] | | [address] | | | - LABORATORY | | | | + + + + + POC Glucose (10/07/2019 12:25 PM PDT) + +---------+ + + + | Component | Value | Ref Range | Performed | Pathologist | | | | | At | Signature | + +---------+ + + + | Glucose, | 280 (H) | 70 - 109 mg/dL | [facility] | | | POC | | | [...] + | [facility] | [address] | [place] | [phone] | | [facility] | | [address] | | | - LABORATORY | | [...] [address] | [place] | [phone] | | [facility] | | [address] | | | - LABORATORY | | [...] + | [facility] | [address] | [place] | [phone] | | [facility] | | [address] | | | - LABORATORY | | [...] + | [facility] | [address] | [place] | [phone] | | [facility] | | [address] | | | - LABORATORY | | [...] 2.68 (H) | 0.55 - 1.02 | [facility] | | | | | mg/dL | [facility] | | | | | | MEDICAL | | | | | | CENTER - | | | | | | LABORATORY | | + + + + + + | eGFR, | 18 (L)Comment: | >=60 | [facility] | | | non- | GLOMERULAR FILTRATION | mL/min/1.73m2 | [facility] | | | [place] | RATE,ESTIMATED | | MEDICAL | | | | mL/min/1.99v8Bzra than | | CENTER - | | [...] | 9.9 | 8.7 - 10.4 | [place] | | | | | mg/dL | [facility] | | | | | [...] [address] | [place] | [phone] | | [facility] | | [address] | | | - LABORATORY | | [...] | | POC | | | Hailey [facility] | | | | | | MEDICAL [...] + | [facility] | [address] | [place] | [phone] | | [facility] | | [address] | | | - LABORATORY | | [...] [address] | [place] | [phone] | | [facility] | | [address] | | | - LABORATORY | | [...] | | | | | | n Luna | | | | | + +--------+ [...] (TTE) Demographics Patient Name | | | [facility] Room Number 321 | | | LIZET Patient Number [id number] Date of Study | | | 10/06/2019 Visit Number [id number] Referring | | | Physician ORVILLE FULTON | | | Obstetric Anaesthetist [facility] Number Date of | | | 1950 Interpreting ELADIA BLACK MD | | | Physician Age | | | 69 year(s) Nurse Gender Female | | | Stress Pyrotechnician Procedure Type of Study TTE | | | procedure:ECHO Complete. Procedure DateDate: 10/06/2019 Start: 02:51 | | | PM Study Location: [facility] Quality: Adequate visualization | | | [...] Number 321 | | LIZET Patient Number [id number] Date of Study 10/06/2019 Visit | | Number [id number] Referring Physician ORVILLE FULTON Accession | | [id number] Obstetric Anaesthetist [facility] Number Date of | | 1950 Interpreting ELADIA BLACK MD | | Physician Age 69 year(s) Nurse Gender Female | | Stress TechnicianProcedureType of Study TTE procedure:ECHO Complete.Procedure | | DateDate: 10/06/2019 Start: 02:51 PMStudy Location: [facility] Quality: Adequate | | visualizationIndications:Atrial fibrillation, unspecified [...] [address] | [place] | [phone] | | [facility] | | [address] | | | - LABORATORY | | [...] + | [facility] | [address] | [place] | [phone] | | [facility] | | [address] | | | - LABORATORY | | [...] [address] | [place] | [phone] | | [facility] | | [address] | | | - LABORATORY | | [...] ST. | [address] | [place] | [phone] | | [facility] | | [address] | | | - LABORATORY | | [...] [address] | [place] | [phone] | | [facility] | | [address] | | | - LABORATORY | | [...] mL/min/1.73m2 | [facility] | | | [place] | RATE,ESTIMATED | | MEDICAL | | | | mL/min/1.57h7Fptz than | | CENTER - | | [...] | | ine Ratio | | | [facility] | | | | | [...] [address] | [place] | [phone] | | [facility] | | [address] | | | - LABORATORY | | [...] | | | | [employer] [place] [employer] | | | | | [...] ST. | [address] | [place], [place] | [phone] | | [facility] | | [address] | | | - LABORATORY | | [...] 1,607 (H)Comment: New | <100 pg/mL | [facility] | | | | method in use [...] + | [facility] | [address] | [place] | [phone] | | [facility] | | [address] | | | - LABORATORY | | [...] ST. | [address] | [place] | [phone] | | [facility] | | [address] | | | - LABORATORY | | [...] | | | | JOSEPHINE STEVENS MD ([id number]) | | | | | | on [...] non- | GLOMERULAR FILTRATION | mL/min/1.73m2 | [facility] | | | [place] | RATE,ESTIMATED | | MEDICAL | | | | mL/min/1.29a4Citg than | | CENTER - | | [...] | | | | | mg/dL | [facility] | | | | | [...] [address] | [place] | [phone] | | [facility] | | [address] | | | - LABORATORY | | [...] | | | | [employer] [place] [employer] | | | | | [...] [address] | [place] | [phone] | | [facility] | | [address] | | | - LABORATORY | | | | + + + + + documented in this encounter Visit Diagnoses + + | Diagnosis | + + | Atrial fibrillation with RVR ([facility]) - Primary Atrial fibrillation | + [...] | | | | | | | 6094-9952 Use NIGHT DOSE for | | | | | | | doses scheduled: HS, | | | | | | | Nighttime 6924-0063 If the BG is | | | [...] | | | | | | | 4322-2190 Use NIGHT DOSE for | | | | | | | doses scheduled: HS, | | | | | | | Nighttime 0216-9578 If the BG is | | | [...] PRN, Nicotine Craving, | | | Starting [facility] 10/05/19 at 2250 | | + +---+ | | | + +---+ | ondansetron (ZOFRAN) injection | | | 4 mg 4 mg, Intravenous, EVERY 6 | | | HOURS PRN, Nausea, Vomiting, | | | Starting [facility] 10/05/19 at 2237, | | | First line agent, | | + +---+ | | | + +---+ | pharmacy consult - other | | | medications/reasons PHARMACY | | | CONSULT, Starting [facility] 10/07/19 at | | | 1415, Pharmacy [...]
--- OUTSIDE RECORDS SUMMARY | ~2020-01-14 | XMS | Encounter Summary ---
Demographics + + + | Address | [address] | | | [place] [address] | + + + | Home Phone [...] Team Providers + +------+ + | Care Yarder Name | Role | Phone | + [...] | | initial | MD Anup | [place], | | | | | encounter | [address] | [place] [address] | | | | | Nonintractab | St [place] | Phone: | | | | | le headache, | [place], [place] | [phone] | | | | | unspecified | [address] | Fax: | | | | | chronicity | Phone: | [phone] | | | | | pattern, | [phone] | | | | | | unspecified | Fax: | | | | | | headache | [phone] | | | | | | type [...] | | | | A-ky ([facility]) | Lizet White, | Cardiology | | | | | Procedures | [address] | [address] | | | | | INSULATION MANAGER | [place] | [place], | | | | | | [address] [place] | [place] | | | | | | [place] | [address] | | | | | | [address] | Phone: | | | | | | Phone: | [phone] | | | | | | [phone] | Fax: | | | | | | Fax: | [phone] | | | | | | [phone] | | + +--------+ + + + + Encounter Details +--------+---------+ + + + | Date | Type | Department | Care Team | Description | +--------+---------+ + + + | 06/09/ | Office | [facility] | Graham Black | Atrial fibrillation | | 2020 | Visit | CARDIOLOGY [address] | MD Anup [address] | with RVR (HCC) | | | | [place], | [address] [place] | (Primary Dx); Acute | | | | [place] [address] | [place] [address] | heart failure with | | | | [phone] | [phone] | preserved ejection | | | | [...] stage 4, GFR 15-29 ml/min ([facility]) 07/28/2019 Diabetes mellitus ([facility]) 07/28/2019 Hypertension 07/28/2019 Nicotine dependence [...] PLT 241 10/07/2019 I reviewed records from [facility] for hospitalization,including H& P, Discharge Summary and [...] [facility], [...] medical record entries made by the clinical computer support specialist instructor were at my dir ection. I have reviewed the documentation and discharge instructions (if appropriate), and edited the documentation if necessary. I agree that the record reflects my personal performa nce and is accurate and complete for visit date 11/02/2019. Portions of this report were transcribed using voice recognition software. Every effort wa s made to ensure accuracy; however, inadvertent computerized curator natural history museum errors may be pre sent. Electronically signed [...] | | | | | [place] [address] | | | | | | [phone] | | | | | | | | +--------+---------+ + + + | 03/08/ | Office | Cardiology | Denia Nicole | | | 2019 | Visit | | BECK Barber [address] | | | | | [address] [place] | | | | | | [place] [address] | | | | | | [phone] | | | | | | | [...] | | | | RVR ([facility]) | | + +--------+ + [...] MD | | | | | | ([id number]) on 11/04/2019 | | | | | [...]
--- OUTSIDE RECORDS SUMMARY | ~2020-01-14 | XMS | Encounter Summary ---
Demographics + + + | Address | [address] | | | [place] [address] | + + + | Home Phone | | + + + | Preferred Language | Unknown | + + + | Marital Status | Unknown | + + + | Worship Affiliation | Unknown | + + + [...] Team Providers + +------+ + | Care Spray Technician Name | Role | Phone | + +------+ + PCP | Unavailable | + +------+ + Encounter Details +--------+ + + + + | Date | Type | Department | Care Team | Description | +--------+ + + + + | 08/11/ | Hospital | [facility] | Aníbal Self | | | 2011 | Encounter | HOSPITAL EMERGENCY | MD Abel [address] | | | | | MEDICINE BOW [address] | | | | [address] [place], [place] | [place], [place] | | | | | [address] | [address] | | | | | [phone] | [phone] | | | | | | | [...] | | | | | [place] [address] | | | | | | [phone] | | | | | | | | +--------+---------+ + + + | 03/08/ | Office | Cardiology | Denia Nicole | | | 2019 | Visit | | BECK Barber [address] | | | | | | [address] [place] | | | | | | [place] [address] | | | | | | [phone] | | | | | | | | +--------+---------+ + + + documented as of this encounter Visit Diagnoses Not on filedocumented in this encounter"
--- OUTSIDE RECORDS SUMMARY | ~2020-01-14 | XMS | Encounter Summary ---
Demographics + + + | Address | [address] | | | [place] [address] | + + + | Home Phone | | + + + | Preferred Language | Unknown | + + + | Marital Status | Unknown | + + + | Buddhism Affiliation | Unknown | + + + | Race | White | + + + | Ethnic Group | Unknown | + + + Author + + + | Author | [facility] | | | and [place] | + + + | Organization | [facility] | | [...] Team Providers + +------+ + | Care Poultry Scalder Name | Role | Phone | + [...] + + | 09/01/ | Telephone | [facility] | Matty Bingham MD | Pain | | 2020 | | NEPHROLOGY [place] | [address] [place] | | | | | [address] [place] | [address] [place], [place] | | | | | [address] [place], [place] | [address] | | | | | [address] | | | | | | [phone] | | | +--------+ + + + [...] was held thru her PCP at the [place], as there was concern about toxicity of this medication i n the setting of her chronic kidney disease (CKD). I called back [phone] ext [phone] & spoke with the RN in charge [...] anage pain/neuropathy medications. Best, MD JONATHAN Short [facility] documented in this enco unter Plan of [...] | | | | | [place] [address] | | | | | | [phone] | | | | | | | | +--------+---------+ + + + | 03/08/ | Office | Cardiology | Denia Nicole | | 2019 | Visit | | BECK Barber [address] | | | | | | [address] [place] | | | | | | [place] [address] | | | | | | [phone] | | | | | | | | +--------+---------+ + + + documented as of this encounter Visit Diagnoses Not on filedocumented in this encounter"
--- OUTSIDE RECORDS SUMMARY | ~2020-01-14 | XMS | Encounter Summary ---
Demographics + + + | Address | [address] | | | [place] [address] | + + + | Home Phone | | + + + | Preferred Language | Unknown | + + + | Marital Status | Unknown | + + + | Spiritism Affiliation | Unknown | + + + [...] Team Providers + +------+ + | Care Religious Leader Name | Role | Phone | + [...] + + | 08/03/ | Telephone | [facility] | Matty Bingham MD | Other (RBC ua | | 2020 | | NEPHROLOGY [place] | [address] [place] | result) | | | | [address] | [address] [facility] [place] | | | | | [address] [place] [address] | [address] | | | | | [place], [place] | | | | | | [address] | | | | | | [phone] | | | +--------+ + + + [...] Miscellaneous Notes Telephone Encounter - Gabbi Cordova Business Machine Operator - 08/04/2019 5:39 PM PDTinter path reports [...] t results. Please call them back at [phone], you may speak to any of the client services specialis t to get the updated information. Next OV: [facility] DISTRICT ADMINISTRATIVE ASSISTANT Consult do cumented in this encounter Plan [...] | | | | | [place] [address] | | | | | | [phone] | | | | | | | | +--------+---------+ + + + | 03/08/ | Office | Cardiology | Denia Nicole | | | 2019 | Visit | | [facility]ECK Barber [address] | | | | | [address] [place] | | | | | | [place] [address] | | | | | | [phone] | | | | | | | | +--------+---------+ + + + documented as of this encounter Visit Diagnoses Not on filedocumented in this encounter"
--- OUTSIDE RECORDS SUMMARY | ~2020-01-14 | XMS | Encounter Summary ---
Demographics + + + | Address | [address] | | | [place] [address] | + + + | Home Phone [...] Team Providers + +------+ + | Care Water Well Driller Name | Role | Phone | + +------+ + | Lizet Oliva | PCP | | + +------+ + Encounter Details +--------+ + + + + | Date | Type | Department | Care Team | Description | +--------+ + + + + | 08/02/ | Orders Only | [facility] | Matty Bingham MD | Essential | | 2020 | | NEPHROLOGY [place] | [address] [place] | hypertension | | | | [address] | [address] [place], [place] | (Primary Dx); CKD | | | | [address] [place] [address] | [address] | (chronic kidney | | | | [place], [place] | | disease) stage 4, | | | | [address] | | GFR 15-29 ml/min | | | | [phone] | | (HCC); Nephrotic | | | [...] | | | | | [place] [address] | | | | | | [phone] | | | | | | | | +--------+---------+ + + + | 03/08/ | Office | Cardiology | Denia Nicole | | | 2020 | Visit | | [facility]ECK Barber [address] | | | | | [address] [place] | | | | | | [place] [address] | | | | | | [phone] | | | | | | | [...] | | | | | ([facility]) Nephrotic | | | | | [...] | | | | | ([facility]) Nephrotic | | | | | [...]
--- OUTSIDE RECORDS SUMMARY | ~2020-01-14 | XMS | Clinical Summary ---
Demographics + + + | Address | [address] | | | [place] [address] | + + + | Home Phone [...] Team Providers + +------+ + | Care Master [place] Name | Role | Phone | + [...] | | | | | | | [id number]= [id number] | | | | | | | | [id number]= 3 | | | | | | | | [id number]= 4 | | | | | | [...] Seo | | | | | | Museum Attendant | | +--------+ + + + + | 01/03/ | Documentati | Nephrology | Art | Other ( order sent | | 2019 | on | | Naomi Seo [facility] | | | | Museum Attendant | confirmation | | | | | [...] Seo | | | | | | Museum Attendant | | +--------+ + + + + | 11/03/ | Telephone | Cardiology | Graham Black | Other (records sent | | 2019 | | | MD Anup | - [facility]) | +--------+ + + + + [...] | | MD Anup | with [facility] ([facility]) | | | | | | (Primary [...] | | | | | [place] [address] | | | | | | [phone] | | | | | | | | +--------+---------+ + + + | 03/08/ | Office | Cardiology | Denia Nicole | | | 2019 | Visit | | BECK Barber [address] | | | | | | [address] [place] | | | | | | [place] [address] | | | | | | [phone] | | | | | | | [...] | | | | PDT | [facility] ([facility]) Essential | results section. | | | | | hypertension Acute | | | | | | heart failure with | | | | | | preserved ejection | | | | | | fraction ([facility]) | | + +--------+ + + + [...] | | | RN: | | | [id number] | | | [id number] | | | riteri | | | [...] | | | St. | | | [place] | | | y | | | [...] | | | St. | | | [place] | | | y H. | | [...] | | | St. | | | [place] | | | y H. | | | [place] | | | [place] | | | Emerge | | | ncy | | | Chief | | | Compla | | | int: | | | SOB | | | May | | | 12, | | | 2020 | | | [facility] | | | [facility] | | | [place] | | | y H. | | [...] | | | St. | | | [place] | | | y H. | | [...] | | | St. | | | [place] | | | y H. | | [...] | | | St. | | | [place] | | | y H. | | [...] | | | St. | | | [place] | | | y H. | | [...] | | | St. | | | [place] | | | y H. | | [...] | | | St. | | | [place] | | | y H. | | [...] | | | SAM[place], | | | [id number] | | | [id number] | | | [...] | | | otify/ | | | [id number] | | | [id number] | | | [id number] | | | [id number]- | | | [id number] | | | [id number] | | | [...] | | | | | | [facility] ([facility]) | | + +--------+ + + + [...] recent of 2 results within the ti nv period is included. + + + + [...] | 1.013 | | | | | [place], | | | | | | Urine [...] CASANDRA | | | | | | ([id number]) on 12/09/2019 | | | | | [...] | 3:55 PMHISTORY: [facility]COMPARISON: | | None.PROTOCOL: [...] unspecified provider. | | + + + [place] and Lambda Light Chain Ratio (11/01/2019) + +-------+ + + + | Component | Value | Ref Range | Performed | Pathologist | | | | | At | Signature | + +-------+ + + + | [place] [facility] | 63.73 | | | | + +-------+ + + + | [facility] | 28.44 | | | | | LIGHT CHAIN | | | | | + +-------+ + + + | [place]/[facility] | 2.24 | | | | | [...] +---------+--------+ | [facility] | [place] | [id number] | 08/02/19 | | | Indemn | | | COMMUN | | 20-Pre | | | ity | | | ITY | | sent | | | | | | CARE | | | | | | + +--------+ +--------+ +---------+--------+ | [facility] | [facility] | [id number] | 08/02/19 | | | Indemn | | | NS | | 20-Pre | | | ity | | | ADMIN | | sent | | | | | | [place] | | | | | | | | [place] | | | | | | + +--------+ +--------+ +---------+--------+ | [facility] | [place] | [id number] | | | | Indemn | | | NS | | 006-Pr | | | ity | | | ADMIN | | esent | | | | | | [place] | | | | | | | | [place] | | | | | | + +--------+ +--------+ +---------+--------+ | [facility] | [place] | [id number] | | | | Indemn | | | COMMUN | | 016-Pr | | | ity | | | ITY | | esent | | | | | | CARE | | | | | | + +--------+ +--------+ +---------+--------+ | MEDICARE | MEDICA | [id number] | | [phone] | | Medica | [...] [place] | | | 7 (Home) | [address] | + +--------+ +--------+ + + | Lizet Mcneil | Person | Self | [birth year] | [address] | | Bina | al/Fam | | 1951 | [phone] | [address] [place], [place] | | | ricardo | | | 7 (Home) | [address] | + +--------+ +--------+ + + Advance Directives + + + + + | Type | Date Recorded | Patient | Explanation | | | | Uptwister Tender | | + + + + + | Power of | | | | | Ekg Tech | | | | + + + [...]
--- OUTSIDE RECORDS SUMMARY | ~2020-01-14 | XMS | Encounter Summary ---
Demographics + + + | Address | [address] | | | [place] [address] | + + + | Home Phone [...] Team Providers + +------+ + | Care Inpatient Services Director Name | Role | Phone | [...] | Encounter | CONVERSION | MD Bethanie [address] | | | | | [address] | [address] | | | | | [address] | [facility] [address] | | | | | [place], [place] | [phone] | | | | | [address] | | | | | | [phone] | | | +--------+ + + + [...] | | | | | [place] [address] | | | | | | [phone] | | | | | | | | +--------+---------+ + + + | 03/08/ | Office | Cardiology | Denia Nicole | | | 2019 | Visit | | [facility]K [facility] [address] | | | | | | [address] [place] | | | | | | [place] [address] | | | | | | [phone] | | | | | | | | +--------+---------+ + + + documented as of this encounter Visit Diagnoses Not on filedocumented in this encounter"
--- OUTSIDE RECORDS SUMMARY | ~2020-01-14 | XMS | Encounter Summary ---
Demographics + + + | Address | [address] | | | [place] [address] | + + + | Home Phone [...] Team Providers + +------+ + | Care Consumer Studies Professor Name | Role | Phone | + +------+ + PCP | Unavailable | + +------+ + Encounter Details +--------+ + + + + | Date | Type | Department | Care Team | Description | +--------+ + + + + | 04/28/ | Hospital | [facility] | Niharika Hsieh | | | 2006 | Encounter | HOSPITAL EMERGENCY | MD G[address] | | | | | [place] [address] | [address] [place] | | | | | [address] [place], [place] | [place] [address] | | | | | [address] | [phone] | | | | | [phone] | | | +--------+ + + + [...] | | | | | [place] [address] | | | | | | [phone] | | | | | | | | +--------+---------+ + + + | 03/08/ | Office | Cardiology | Denia Nicole | | | 2019 | Visit | | [facility]K [facility] [address] | | | | | | [address] [place] | | | | | | [place] [address] | | | | | | [phone] | | | | | | | | +--------+---------+ + + + documented as of this encounter Visit Diagnoses Not on filedocumented in this encounter"
--- OUTSIDE RECORDS SUMMARY | ~2020-01-14 | XMS | Encounter Summary ---
Demographics + + + | Address | [address] | | | [place] [address] | + + + | Home Phone | | + + + | Preferred Language | Unknown | + + + | Marital Status | Unknown | + + + | Religion Affiliation | Unknown | + + + [...] Team Providers + +------+ + | Care Doctor Of Chiropractic Name | Role | Phone | + +------+ + PCP | Unavailable | + +------+ + Encounter Details +--------+ + + + + | Date | Type | Department | Care Team | Description | +--------+ + + + + | 11/24/ | Hospital | [facility] | Maximilian Benoit | | | 2007 | Encounter | CONVERSION | MD Bethanie [address] | | | | | [address] | [address] | | | | | [address] | [facility] [address] | | | | | [place], [place] | [phone] | | | | | [address] | | | | | | [phone] | | | +--------+ + + + [...] | | | | | [place] [address] | | | | | | [phone] | | | | | | | | +--------+---------+ + + + | 03/08/ | Office | Cardiology | Denia Nicole | | | 2019 | Visit | | [facility]ECK Barber [address] | | | | | | [address] [place] | | | | | | [place] [address] | | | | | | [phone] | | | | | | | | +--------+---------+ + + + documented as of this encounter Visit Diagnoses Not on filedocumented in this encounter"
--- OUTSIDE RECORDS SUMMARY | ~2020-01-14 | XMS | Encounter Summary ---
Demographics + + + | Address | [address] | | | [place] [address] | + + + | Home Phone [...] + + + | Author | [facility] | | | and [place] | + + + | Organization | [facility] | | | [...] Team Providers + +------+ + | Care Director Digital Analytics Name | Role | Phone | + [...] with RVR | [address] | [address] | | | | | (HCC) JUSTIN | [place], | [place], | | | | | (obstructive | [place] [address] | [place] [address] | | | | | sleep | Phone: | Phone: | | | | | apnea) | [phone] | [phone] | | | | | Procedures | Fax: | Fax: | | | | | 01/11> DOS | [phone] | [phone] | | | | | 02/07> STILL [...] | | | | | Procedures | TAKE OUT WA[address] | [address] | | | | | LOADING SHOVEL OILER | ELY [address]HONE | [place], | | | | | | [address] [place] | [place] | | | | | | [place] | [address] | | | | | | [address] | Phone: | | | | | | Phone: | [phone] | | | | | | [phone] | Fax: | | | | | | Fax: | [phone] | | | | | | [phone] | | + +--------+ + + + + Encounter Details +--------+---------+ + + + | Date | Type | Department | Care Team | Description | +--------+---------+ + + + | 12/06/ | Office | [facility] | NicoleDaisycy | Atrial fibrillation | | 2020 | Visit | CARDIOLOGY [address] | [facility]ECK [address] | with [facility] (HCC) | | | | [place], | [address] [place] | (Primary Dx); | | | | [place] [address] | [place] [address] | Essential | | | | [phone] | [phone] | hypertension; Acute | | | | [...] BY: JOEL Lilly PRIMARY CARE: [facility] Nephrology: Dr. Matty Bingham CARDIOLOGY OFFICE [...] has previously presented with her son Kenan. Liezt presents today for routine follow-up visit. She [...] PLT 241 10/07/2019 I reviewed records from [facility] for hospitalization,including H& P, Discharge Summary [...] Female Gender (1), giving her a C [id number] of 4, estimating a 4=4.0% risk of [...] and after discussion with Dr. Black, her [facility] industrial twisting machine operator, I will defer diuretic management to her care team coordinator scheduler. I recommend a low s odium diet, and elevation of her lower extremities with consideration to compression socks. I have personally discussed her case with Dr. Bingham her care team coordinator scheduler, who has recommended a BMP and follow [...] made to ensure accuracy; however, inadvertent computerized blade grader operator errors may be pre sent. Electronically [...] | | | | | [place] [address] | | | | | | [phone] | | | | | | | | +--------+---------+ + + + | 03/08/ | Office | Cardiology | Denia Nicole | | 2019 | Visit | | [facility]K [facility] [address] | | | | | | [address] [place] | | | | | | [place] [address] | | | | | | [phone] | | | | | | | [...] MD | | | | | | ([id number]) on 12/09/2019 | | | | | [...]
--- OUTSIDE RECORDS SUMMARY | ~2020-01-14 | XMS | Encounter Summary ---
Demographics + + + | Address | [address] | | | [place] [address] | + + + | Home Phone [...] Team Providers + +------+ + | Care Corporate Planner Name | Role | Phone | + [...] | | | [address] | [place] [address] | | | | | [place], [place] | [phone] | | | | | [address] | | | | | | [phone] | | | +--------+ + + + [...] | | | | | [place] [address] | | | | | | [phone] | | | | | | | | +--------+---------+ + + + | 03/08/ | Office | Cardiology | Denia Nicole | | | 2019 | Visit | | [facility]K [facility] [address] | | | | | | [address] [place] | | | | | | [place] [address] | | | | | | [phone] | | | | | | | | +--------+---------+ + + + documented as of this encounter Visit Diagnoses Not on filedocumented in this encounter"
--- OUTSIDE RECORDS SUMMARY | ~2020-01-14 | XMS | Encounter Summary ---
Demographics + + + | Address | [address] | | | [place] [address] | + + + | Home Phone [...] Team Providers + +------+ + | Care Electronic Organ Technician Name | Role | Phone | [...] | Encounter | CONVERSION | MD Bethanie [address] | | | | | [address] | [address] | | | | | [address] | [facility] [address] | | | | | [place], [place] | [phone] | | | | | [address] | | | | | | [phone] | | | +--------+ + + + [...] | | | | | [place] [address] | | | | | | [phone] | | | | | | | | +--------+---------+ + + + | 03/08/ | Office | Cardiology | Denia Nicole | | | 2019 | Visit | | [facility]ECK [facility] [address] | | | | | | [address] [place] | | | | | | [place] [address] | | | | | | [phone] | | | | | | | | +--------+---------+ + + + documented as of this encounter Visit Diagnoses Not on filedocumented in this encounter"
--- OUTSIDE RECORDS SUMMARY | ~2020-01-14 | XMS | Encounter Summary ---
Demographics + + + | Address | [address] | | | [place] [address] | + + + | Home Phone [...] Team Providers + +------+ + | Care Rubber Vulcanizing Machine Operator Name | Role | Phone [...] + + | 07/28/ | Documentati | [facility] | [place], | Results (07/28/19) | | 2020 | on | NEPHROLOGY JUAN | Naomi Seo | | | | | [address] | Bottoming Room Supervisor | | | | | [address] [facility] [place] | | | | | | [address] | | | | | | [phone] | | | +--------+ + + + [...] | | | | | [place] [address] | | | | | | [phone] | | | | | | | | +--------+---------+ + + + | 03/08/ | Office | Cardiology | Denia Nicole | | | 2020 | Visit | | [facility] [address] | | | | | | [address] [place] | | | | | | [place] [address] | | | | | | [phone] | | | | | | | [...] 1.001 - 1.030 | | | | [place], | | | | | | Urine [...]
--- OUTSIDE RECORDS SUMMARY | ~2020-01-14 | XMS | Encounter Summary ---
Demographics + + + | Address | [address] | | | [place] [address] | + + + | Home Phone | | + + + | Preferred Language | Unknown | + + + | Marital Status | Unknown | + + + | Rastafari Affiliation | Unknown | + + + [...] Team Providers + +------+ + | Care Shoe Maker Name | Role | Phone | [...] [address] | | | | | | [place], [place] | | | | | | [address] | | | | | | [phone] | | | +--------+ + + + [...] | | | | | [place] [address] | | | | | | [phone] | | | | | | | | +--------+---------+ + + + | 03/08/ | Office | Cardiology | Denia Nicole | | | 2019 | Visit | | [facility]ECK Barber [address] | | | | | | [address] [place] | | | | | | [place] [address] | | | | | | [phone] | | | | | | | | +--------+---------+ + + + documented as of this encounter Visit Diagnoses Not on filedocumented in this encounter"
--- OUTSIDE RECORDS SUMMARY | ~2020-01-14 | XMS | Encounter Summary ---
Demographics + + + | Address | [address] | | | [place] [address] | + + + | Home Phone [...] Providers + +------+ + | Care Assistant Professor Nurse Education Name | Role | Phone | + +------+ + | Benny James MD | PCP | | + +------+ + Encounter Details +--------+ + + + + | Date | Type | Department | Care Team | Description | +--------+ + + + + | 07/27/ | Orders Only | [facility] | Art, | | | 2019 | | NEPHROLOGY JUAN | Naomi Seo | | | | | [address] [place] | Registered Nurse Cardiac Telemetry | | | | | [address] [place] | | | | | | [address] | | | | | | [phone] | | | +--------+ + + + [...] | | | | | [place] [address] | | | | | | [phone] | | | | | | | | +--------+---------+ + + + | 03/08/ | Office | Cardiology | Denia Nicole | | | 2019 | Visit | | [facility]ECK [facility] [address] | | | | | | [address] [place] | | | | | | [place] [address] | | | | | | [phone] | | | | | | | [...] 1.001 - 1.030 | | | | [place], | | | | | | Urine [...]
--- OUTSIDE RECORDS SUMMARY | ~2020-01-14 | XMS | Encounter Summary ---
Demographics + + + | Address | [address] | | | [place] [address] | + + + | Home Phone [...] Team Providers + +------+ + | Care Architecture Manager Name | Role | Phone | + +------+ + PCP | Unavailable | + +------+ + Encounter Details +--------+ + + + + | Date | Type | Department | Care Team | Description | +--------+ + + + + | 08/11/ | Hospital | [facility] | Aníbal Self | | | 2011 | Encounter | HOSPITAL EMERGENCY | MD [address] | | | | | [place] [address] | | | | | [address] [place], [place] | [place], [place] | | | | | [address] | [address] | | | | | [phone] | [phone] | | | | | | | [...] | | | | | [place] [address] | | | | | | [phone] | | | | | | | | +--------+---------+ + + + | 03/08/ | Office | Cardiology | Denia Nicole | | | 2019 | Visit | | [facility]ECK Barber [address] | | | | | | [address] [place] | | | | | | [place] [address] | | | | | | [phone] | | | | | | | | +--------+---------+ + + + documented as of this encounter Visit Diagnoses Not on filedocumented in this encounter"
--- OUTSIDE RECORDS SUMMARY | ~2020-01-14 | XMS | Encounter Summary ---
Demographics + + + | Address | [address] | | | [place] [address] | + + + | Home Phone [...] Team Providers + +------+ + | Care Bar Assistant Name | Role | Phone | [...] | | | [address] [place] | [place] [address] | | | | | [place] [address] | | | | | | [phone] | | | +--------+ + + + [...] | | | | | [place] [address] | | | | | | [phone] | | | | | | | | +--------+---------+ + + + | 03/08/ | Office | Cardiology | Denia Nicole | | | 2019 | Visit | | [facility]ECK [facility] [address] | | | | | | [address] [place] | | | | | | [place] [address] | | | | | | [phone] | | | | | | | [...]
--- OUTSIDE RECORDS SUMMARY | ~2020-01-14 | XMS | Encounter Summary ---
Demographics + + + | Address | [address] | | | [place] [address] | + + + | Home Phone [...] + | Author | [facility] | | | and [place] | + + + | Organization | [facility] | | | [...] Team Providers + +------+ + | Care [place] Captain Name | Role | Phone | [...] | HOSPITAL XRAY [address] | MD Bethanie [address] | | | | | [address] | [address] | | | | | [place] | [place] [address] | | | | | [address] | [phone] | | | | | [phone] | | | +--------+ + + + [...] | | | | | | [place] [address] | | | | | | [phone] | | | | | | | | +--------+---------+ + + + | 03/08/ | Office | Cardiology | Denia Nicole | | | 2019 | Visit | | [facility]ECK Barber [address] | | | | | | [address] [place] | | | | | | [place] [address] | | | | | | [phone] | | | | | | | | +--------+---------+ + + + documented as of this encounter Visit Diagnoses Not on filedocumented in this encounter"
--- OUTSIDE RECORDS SUMMARY | ~2020-01-14 | XMS | Encounter Summary ---
Demographics + + + | Address | [address] | | | [place] [address] | + + + | Home Phone [...] Team Providers + +------+ + | Care Design Quality Engineer Name | Role | Phone | [...] + + | 01/04/ | Documentati | [facility] | [place], | Results (01/04/20) | | 2020 | on | NEPHROLOGY JUAN | Naomi Seo | | | | | [address] | Plating Tank Operator Apprentice | | | | | [address] [facility] [place] | | | | | | [address] | | | | | | [phone] | | | +--------+ + + + [...] | | | | | [place] [address] | | | | | | [phone] | | | | | | | | +--------+---------+ + + + | 03/08/ | Office | Cardiology | Denia Nicole | | | 2020 | Visit | | [facility]ECK [facility] [address] | | | | | | [address] [place] | | | | | | [place] [address] | | | | | | [phone] | | | | | | | [...] | 1.013 | | | | | [place], | | | | | | Urine [...]
--- OUTSIDE RECORDS SUMMARY | ~2020-01-14 | XMS | Encounter Summary ---
Demographics + + + | Address | [address] | | | [place] [address] | + + + | Home Phone [...] Providers + +------+ + | Care Auto Driver Name | Role | Phone | [...] | Encounter | CONVERSION | MD Bethanie [address] | | | | | [address] | [address] | | | | | [address] | [place] [address] | | | | | [place], [place] | [phone] | | | | | [address] | | | | | | [phone] | | | +--------+ + + + [...] | | | | | [place] [address] | | | | | | [phone] | | | | | | | | +--------+---------+ + + + | 03/08/ | Office | Cardiology | Denia Nicole | | | 2019 | Visit | | [facility]ECK Barber [address] | | | | | | [address] [place] | | | | | | [place] [address] | | | | | | [phone] | | | | | | | | +--------+---------+ + + + documented as of this encounter Visit Diagnoses Not on filedocumented in this encounter"
--- OUTSIDE RECORDS SUMMARY | ~2020-01-14 | XMS | Encounter Summary ---
Demographics + + + | Address | [address] | | | [place] [address] | + + + | Home Phone | | + + + | Preferred Language | Unknown | + + + | Marital Status | Unknown | + + + | Yazidism Affiliation | Unknown | + + + | Race | White | + + + | Ethnic Group | Unknown | + + + Author + + + | Author | [facility] | | | and [place] | + + + | Organization | [facility] | | [...] Team Providers + +------+ + | Care Environmental Compliance Specialist Name | Role | Phone | + +------+ + | Sharyn Oliva | PCP | | + +------+ + Encounter Details +--------+ + + + + | Date | Type | Department | Care Team | Description | +--------+ + + + + | 09/09/ | Lab | [facility] | Sharyn Oliva | Age-related | | 2018 | Requisition | [facility] LAB[facility] | [address] | osteoporosis with | | | | [address] | [place] | current pathological | | | | [place] | [place] | fracture of right | | | | [address] | [address] | forearm | | | | [phone] | [phone] | | | | | | | [...] | | | | | | [place] [address] | | | | | | [phone] | | | | | | | | +--------+---------+ + + + | 03/08/ | Office | Cardiology | Denia Nicole | | | 2020 | Visit | | BECK Barber [address] | | | | | | [address] [place] | | | | | | [place] [address] | | | | | | [phone] | | | | | | | [...] [address] | [place] | [phone] | | [facility] | | [address] | | | - LABORATORY | | | | + + + + + documented in this encounter Visit Diagnoses + + | Diagnosis | + + | Age-related osteoporosis with current pathological fracture of right forearm Senile | | osteoporosis | + + documented in this encounter"
--- OUTSIDE RECORDS SUMMARY | ~2020-01-14 | XMS | Encounter Summary ---
Demographics + + + | Address | [address] | | | [place] [address] | + + + | Home Phone | | + + + | Preferred Language | Unknown | + + + | Marital Status | Unknown | + + + | Rastafari Affiliation | Unknown | + + + | Race | White | + + + | Ethnic Group | Unknown | + + + Author + + + | Author | [facility] | | | and [place] | + + + | Organization | [facility] | [...] Providers + +------+ + | Care Head Stock Operator Name | Role | Phone | [address] | | | | | | [place], [place] | | | | | | [address] | | | | | | [phone] | | | +--------+ + + + [...] | | | | | [place] [address] | | | | | | [phone] | | | | | | | | +--------+---------+ + + + | 03/08/ | Office | Cardiology | Denia Nicole | | | 2019 | Visit | | [facility] [address] | | | | | [address] [place] | | | | | | [place] [address] | | | | | | [phone] | | | | | | | | +--------+---------+ + + + documented as of this encounter Visit Diagnoses Not on filedocumented in this encounter"
--- OUTSIDE RECORDS SUMMARY | ~2020-01-14 | XMS | Encounter Summary ---
Demographics + + + | Address | [address] | | | [place] [address] | + + + | Home Phone [...] Team Providers + +------+ + | Care Press Cutter Name | Role | Phone | + +------+ + | Benny James MD | PCP | | + +------+ + Encounter Details +--------+ + + + + | Date | Type | Department | Care Team | Description | +--------+ + + + + | 07/23/ | Orders Only | [facility] | Matty Bingham MD | Chronic kidney | | 2020 | | NEPHROLOGY [place] | [address] [place] | disease, stage IV | | | | [address] [place] | [facility] [place] | (severe) (HCC) | | | | 160 [place], [place] | [address] | (Primary Dx) | | | | [address] | | | | | | [phone] | | | +--------+ + + + [...] | | | | | | [place] [address] | | | | | | [phone] | | | | | | | | +--------+---------+ + + + | 03/08/ | Office | Cardiology | Denia Nicole | | | 2019 | Visit | | [facility] [address] | | | | | | [address] [place] | | | | | | [place] [address] | | | | | | [phone] | | | | | | | [...] | (severe) ([facility]) | 07/23/2020 | + +------+--------+ + + | Protein/Creatinine | Lab | Routin | Chronic kidney | Expected: | | Ratio, Urine | | e | disease, stage IV | 07/26/2019, Expires: | | | | | (severe) ([facility]) | 07/23/2020 | + +------+--------+ + + | Uric Acid | Lab | Routin | Chronic kidney | Expected: | | | | e | disease, stage IV | 07/26/2019, Expires: | | | | | (severe) ([facility]) | 07/23/2020 | + +------+--------+ + + | Urinalysis With | Lab | Routin | Chronic kidney | Expected: | | Microscopic | | e | disease, stage IV | 07/26/2019, Expires: | | | | | (severe) ([facility]) | 07/23/2020 | + +------+--------+ + + | CBC with | Lab | Routin | Chronic kidney | Expected: | | Differential | | e | disease, stage IV | 07/26/2019, Expires: | | | | | (severe) ([facility]) | 07/23/2020 | + +------+--------+ + + documented as of this encounter Visit Diagnoses + + | Diagnosis | + + | Chronic kidney disease, stage IV (severe) (HCC) - Primary Chronic kidney disease, | | Stage IV (severe) | + + documented in this encounter"
--- OUTSIDE RECORDS SUMMARY | ~2020-01-14 | XMS | Encounter Summary ---
Demographics + + + | Address | [address] | | | [place] [address] | + + + | Home Phone [...] Team Providers + +------+ + | Care Sign Manufacturer Name | Role | Phone | + [...] | | | [address] | [facility] [address] | | | | | [place], [place] | [phone] | | | | | [address] | | | | | | [phone] | | | +--------+ + + + [...] | | | | | [place] [address] | | | | | | [phone] | | | | | | | | +--------+---------+ + + + | 03/08/ | Office | Cardiology | Denia Nicole | | | 2019 | Visit | | [facility] [address] | | | | | | [address] [place] | | | | | | [place] [address] | | | | | | [phone] | | | | | | | | +--------+---------+ + + + documented as of this encounter Visit Diagnoses Not on filedocumented in this encounter"
--- OUTSIDE RECORDS SUMMARY | ~2020-01-14 | XMS | Encounter Summary ---
Demographics + + + | Address | [address] | | | [place] [address] | + + + | Home Phone [...] Team Providers + +------+ + | Care Dental Services Director Name | Role | Phone [...] | | | | (HCC) | [place] | [address] | | | | | | [address] | Phone: | | | | | | Phone: | [phone] | | | | | | [phone] | Fax: | | | | | | Fax: | [phone] | | | | | | [phone] | | + +--------+ + + + + Encounter Details +--------+---------+ + + + | Date | Type | Department | Care Team | Description | +--------+---------+ + + + | 08/01/ | Office | [facility] | Matty Bingham MD | CKD (chronic kidney | | 2020 | Visit | NEPHROLOGY [place] | [address] [place] | disease) stage 4, | | | | [address] | [address] [facility] [place] | GFR 15-29 ml/min | | | | [address] [place] [address] | [address] | (HCC) (Primary Dx); | | | | [place], [place] | | Type 2 diabetes | | | | [address] | | mellitus with | | | | [phone] | | diabetic | | | | [...] intact PTH, uric acid, urinalysis, Urine total ojugumq-yn-ehnj tinine ratio before she comes back in [...] stage 4, GFR 15-29 ml/min ([facility]) 07/28/2019 Diabetes mellitus ([facility]) 07/28/2019 Hypertension 07/28/2019 Nicotine dependence 07/28/2019 [...] file Gets together: Not on file Attends alevism service: Not on file Active member of [...] intact PTH, uric acid, urinalysis, Urine total bmdfgxh-nq-yqys tinine ratio before she comes back in [...] | | | | | [place] [address] | | | | | | [phone] | | | | | | | | +--------+---------+ + + + | 03/08/ | Office | Cardiology | Denia Nicole | | | 2019 | Visit | | [facility] [address] | | | | | | [address] | | | | | | [place] [address] | | | | | | [phone] | | | | | | | | +--------+---------+ + + + documented as of this encounter Visit Diagnoses + + | Diagnosis | + + | CKD (chronic kidney disease) stage 4, GFR 15-29 ml/min ([facility]) - Primary Chronic kidney | | [...]
--- OUTSIDE RECORDS SUMMARY | ~2020-01-14 | XMS | Encounter Summary ---
Demographics + + + | Address | [address] | | | [place] [address] | + + + | Home Phone [...] Team Providers + +------+ + | Care Unload Associate Name | Role | Phone | [address] | | | | | | [place], [place] | | | | | | [address] | | | | | | [phone] | | | +--------+ + + + [...] | | | | | [place] [address] | | | | | | [phone] | | | | | | | | +--------+---------+ + + + | 03/08/ | Office | Cardiology | Denia Nicole | | | 2019 | Visit | | [facility] [address] | | | | | | [address] [place] | | | | | | [place] [address] | | | | | | [phone] | | | | | | | | +--------+---------+ + + + documented as of this encounter Visit Diagnoses Not on filedocumented in this encounter"
--- OUTSIDE RECORDS SUMMARY | ~2020-01-14 | XMS | Encounter Summary ---
Demographics + + + | Address | [address] | | | [place] [address] | + + + | Home Phone [...] + | Author | [facility] | | | and [place] | + + + | Organization | [facility] | | | and [...] Team Providers + +------+ + | Care Cupola Tapper Helper Name | Role | Phone | [...] | | | | (HCC) | [place] | [address] | | | | | | [address] | Phone: | | | | | | Phone: | [phone] | | | | | | [phone] | Fax: | | | | | | Fax: | [phone] | | | | | | [phone] | | + +--------+ + + + + Encounter Details +--------+---------+ + + + | Date | Type | Department | Care Team | Description | +--------+---------+ + + + | 08/01/ | Office | [facility] | Matty Bingham MD | CKD (chronic kidney | | 2020 | Visit | NEPHROLOGY [place] | [address] [place] | disease) stage 4, | | | | [address] | [address] [facility] [place] | GFR 15-29 ml/min | | | | [address] [place] [address] | [address] | (HCC) (Primary Dx); | | | | [place], [place] | | Type 2 diabetes | | | | [address] | | mellitus with | | | | [phone] | | diabetic | | | | [...] intact PTH, uric acid, urinalysis, Urine total fjvdmgh-vw-awpq tinine ratio before she comes back in [...] kidney disease) stage 4, GFR 15-29 ml/min ([facility]) 07/28/2019 Diabetes mellitus ([facility]) 07/28/2019 Hypertension 07/28/2019 Nicotine [...] intact PTH, uric acid, urinalysis, Urine total txgdzik-rd-fzso tinine ratio before she comes back in [...] | | | | | [place] [address] | | | | | | [phone] | | | | | | | | +--------+---------+ + + + | 03/08/ | Office | Cardiology | Denia Nicole | | | 2019 | Visit | | [facility] [address] | | | | | | [address] | | | | | | [place] [address] | | | | | | [phone] | | | | | | | | +--------+---------+ + + + documented as of this encounter Visit Diagnoses + + | Diagnosis | + + | CKD (chronic kidney disease) stage 4, GFR 15-29 ml/min ([facility]) - Primary Chronic kidney | [...]
--- OUTSIDE RECORDS SUMMARY | ~2020-01-14 | XMS | Encounter Summary ---
Demographics + + + | Address | [address] | | | [place] [address] | + + + | Home Phone [...] Providers + +------+ + | Care Senior Business Consultant Name | Role | Phone | + +------+ + PCP | Unavailable | + +------+ + Encounter Details +--------+ + + + + | Date | Type | Department | Care Team | Description | +--------+ + + + + | 11/13/ | Hospital | [facility] | | | | 2006 | Encounter | MED CTR XRAY [address] | | | | | | [address] | | | | | | [place] [address] | | | | | | [phone] | | | +--------+ + + + [...] | | | | | | [place] [address] | | | | | | [phone] | | | | | | | | +--------+---------+ + + + | 03/08/ | Office | Cardiology | Denia Nicole | | | 2019 | Visit | | [facility] [address] | | | | | | [address] [place] | | | | | | [place] [address] | | | | | | [phone] | | | | | | | | +--------+---------+ + + + documented as of this encounter Visit Diagnoses Not on filedocumented in this encounter"
--- OUTSIDE RECORDS SUMMARY | ~2020-01-14 | XMS | Encounter Summary ---
Demographics + + + | Address | [address] | | | [place] [address] | + + + | Home Phone [...] Team Providers + +------+ + | Care Forensic Photographer Name | Role | Phone | + +------+ + | Benny James MD | PCP | | + +------+ + Encounter Details +--------+ + + + + | Date | Type | Department | Care Team | Description | +--------+ + + + + | 07/23/ | Orders Only | [facility] | Matty Bingham MD | Chronic kidney | | 2020 | | NEPHROLOGY [place] | [address] [place] | disease, stage IV | | | | [address] [place] | [address] [facility] [place] | (severe) (HCC) | | | | [address] [place], [place] | [address] | (Primary Dx) | | | | [address] | | | | | | [phone] | | | +--------+ + + + [...] | | | | | | [place] [address] | | | | | | [phone] | | | | | | | | +--------+---------+ + + + | 03/08/ | Office | Cardiology | Denia Nicole | | | 2019 | Visit | | [facility] [address] | | | | | | [address] [place] | | | | | | [place] [address] | | | | | | [phone] | | | | | | | [...] | (severe) ([facility]) | 07/23/2020 | + +------+--------+ + + | Protein/Creatinine | Lab | Routin | Chronic kidney | Expected: | | Ratio, Urine | | e | disease, stage IV | 07/26/2019, Expires: | | | | | (severe) ([facility]) | 07/23/2020 | + +------+--------+ + + | Uric Acid | Lab | Routin | Chronic kidney | Expected: | | | | e | disease, stage IV | 07/26/2019, Expires: | | | | | (severe) ([facility]) | 07/23/2020 | + +------+--------+ + + | Urinalysis With | Lab | Routin | Chronic kidney | Expected: | | Microscopic | | e | disease, stage IV | 07/26/2019, Expires: | | | | | (severe) ([facility]) | 07/23/2020 | + +------+--------+ + + | CBC with | Lab | Routin | Chronic kidney | Expected: | | Differential | | e | disease, stage IV | 07/26/2019, Expires: | | | | | (severe) ([facility]) | 07/23/2020 | + +------+--------+ + + documented as of this encounter Visit Diagnoses + + | Diagnosis | + + | Chronic kidney disease, stage IV (severe) (HCC) - Primary Chronic kidney disease, | | Stage IV (severe) | + + documented in this encounter"
--- OUTSIDE RECORDS SUMMARY | ~2020-01-14 | XMS | Encounter Summary ---
Demographics + + + | Address | [address] | | | [place] [address] | + + + | Home Phone [...] Team Providers + +------+ + | Care Archivist Economic History Name | Role | Phone | + [...] | | initial | MD Anup | [place], | | | | | encounter | [address] | [place] [address] | | | | | Nonintractab | St [place] | Phone: | | | | | le headache, | [place], [place] | [phone] | | | | | unspecified | [address] | Fax: | | | | | chronicity | Phone: | [phone] | | | | | pattern, | [phone] | | | | | | unspecified | Fax: | | | | | | headache | [phone] | | | | | | type [...] | Diagnoses | Oliva, | [facility] | | | | | A-ky ([facility]) | Lizet White, | Cardiology | | | | | Procedures | BENCH REPAIR TECHNICIAN [address] | [address] | | | | | OUTSIDE INDUSTRIAL SALES REPRESENTATIVE | TELLER | [place], | | | | | | [address] | [place] | | | | | | [place] | [address] | | | | | | [address] | Phone: | | | | | | Phone: | [phone] | | | | | | [phone] | Fax: | | | | | | Fax: | [phone] | | | | | | [phone] | | + +--------+ + + + + Encounter Details +--------+---------+ + + + | Date | Type | Department | Care Team | Description | +--------+---------+ + + + | 06/09/ | Office | [facility] | Graham Black | Atrial fibrillation | | 2020 | Visit | CARDIOLOGY [address] | MD Anup [address] | with RVR (HCC) | | | | [address] [place], | [address] [place] | (Primary Dx); Acute | | | | [place] [address] | [place] [address] | heart failure with | | | | [phone] | [phone] | preserved ejection | | | | [...] stage 4, GFR 15-29 ml/min ([facility]) 07/28/2019 Diabetes mellitus ([facility]) 07/28/2019 Hypertension 07/28/2019 Nicotine dependence 07/28/2019 History [...] 241 10/07/2019 I reviewed records from [facility] for hospitalization,including H& P, Discharge Summary [...] will refer her to the emergency d epacritical access hospital for urgent repeat CT imaging today, [...] and management. I, Graham Black MD, PhD, [facility] personally performed the services described in this documentation. All medical record entries made by the clinical manufacturing support engineer were at my dir ection. I have reviewed the documentation and discharge instructions (if appropriate), and edited the documentation if necessary. I agree that the record reflects my personal performa nce and is accurate and complete for visit date 11/02/2019. Portions of this report were transcribed using voice recognition software. Every effort wa s made to ensure accuracy; however, inadvertent computerized ledge man errors may be pre sent. Electronically signed by: Mary Black MD PhD [facility] 11/02/2019 documented in t his encounter [...] | | | | | [place] [address] | | | | | | [phone] | | | | | | | | +--------+---------+ + + + | 03/08/ | Office | Cardiology | Denia Nicole | | | 2019 | Visit | | [facility] [address] | | | | | | [address] [place] | | | | | | [place] [address] | | | | | | [phone] | | | | | | | [...] | | | | | | RVR ([facility]) | | + +--------+ + + + [...] MD | | | | | | ([id number]) on 11/04/2019 | | | | | [...]
--- OUTSIDE RECORDS SUMMARY | ~2020-01-14 | XMS | Encounter Summary ---
Demographics + + + | Address | [address] | | | [place] [address] | + + + | Home Phone [...] + + + | Author | [facility] | | | and [place] | + + + | Organization | [facility] | | [...] Providers + +------+ + | Care Poultry Helper Name | Role | Phone | [...] | | | [address] [place] | [place] [address] | | | | | [place] [address] | | | | | | [phone] | | | +--------+ + + + [...] | | | | | [place] [address] | | | | | | [phone] | | | | | | | | +--------+---------+ + + + | 03/08/ | Office | Cardiology | Denia Nicole | | | 2019 | Visit | | [facility] [address] | | | | | | [address] [place] | | | | | | [place] [address] | | | | | | [phone] | | | | | | | [...]
[~2020-01-14 16:57] MED LIST changes: +K-TAB ER20 MEQ PO; +NORVASC5 MG PO; +VITAMIN B-121000 MCG PO; -VITAMIN B-12500 MCG PO
--- OUTSIDE RECORDS SUMMARY | 2020-01-14 17:00 | XMS ---
PreManage Notification: SHARYN HAND Security Hoister Events No recent Security Events currently on file CRITERIA MET - [facility] Current PHONE: [phone] SHARYN SNYDER Nurse Practitioner: Family 06/23/2018-Current PHONE: [phone] Godfrey has no Care Guidelines for this patient. Care History Medical/Surgical 07/13/2019 [facility] - PATIENT IS A AND RECEIVED SERVICES AT THE [facility] . 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 - PATIENT PCP HAS NOT RECEIVED RECORDS FROM RECENT ED VISITS-CHW CONTACTED MEDICAL RECORDS AND PROVIDED FAX NUMBER TO HAVE RECENT ED RECORDS SENT FOR FOLLOW UP-PCP WILL BE IN CONTACT WITH PATIENT. E.DHailey VISIT COUNT (12 MO.) 1 Chloé Wright [facility] 9 RUBY [facility]man TOTAL 10 NOTE: Visits indicate total known visits. ED/UCC VISIT TRACKING (12 MO.) 01/14/2020 16:57 [facility] [place] TYPE: Emergency COMPLAINT: - ABD PAIN 11/25/2019 15:57 [facility] [place] TYPE: Emergency COMPLAINT: - L FOOT SKIN PROBLEM DIAGNOSES: - Allergy status to sulfonamides status - Type 2 diabetes mellitus with diabetic chronic kidney disease - Blister (nonthermal), right foot, initial encounter - Nicotine dependence, unspecified, uncomplicated - shelter (current) use of anticoagulants - Blister (nonthermal), left foot, initial encounter - Hypertensive heart and chronic kidney disease with heart fail - Chronic kidney disease, unspecified - Unspecified atrial fibrillation - Other z os mainframe systems programmer (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 - Exposure to other specified factors, initial encounter - Allergy status to other drugs, medicaments and biological sub - Allergy status to other antibiotic agents status - Heart failure, unspecified - Localized edema 11/13/2019 15:10 [facility] [place] TYPE: Emergency COMPLAINT: - ANKLE PAIN, FALL 11/02/2019 15:28 [facility] TYPE: Emergency DIAGNOSES: - Postconcussional syndrome - fall - Multiple Falls - Occlusion and stenosis of bilateral carotid arteries - Headache (Adult - New Onset Or New Symptoms) 10/26/2019 03:06 [facility] [place] TYPE: Emergency COMPLAINT: - FALL/HEAD LAC 10/20/2019 21:41 [facility] [place] TYPE: Emergency COMPLAINT: - SOB 10/05/2019 16:44 [facility] [place] TYPE: Emergency COMPLAINT: - DIZZINESS/SOB DIAGNOSES: - Nicotine dependence, unspecified, uncomplicated - Allergy status to other antibiotic agents status - Allergy status to sulfonamides status - Paroxysmal atrial fibrillation - Unspecified atrial fibrillation - airline lounge receptionist (current) use of insulin - Type 2 diabetes mellitus without complications - Essential (primary) hypertension - Other z os mainframe systems programmer (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 - Dizziness and giddiness [...] to other specified factors, initial encounter - airline lounge receptionist (current) use of aspirin - Type 2 diabetes mellitus without complications - Allergy status to other antibiotic agents status - Other z os mainframe systems programmer (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 - Other bursitis of elbow, right elbow - Unspecified sprain of right elbow, initial encounter INPATIENT VISIT TRACKING (12 MO.) 11/13/2019 15:11 [facility] [place] TYPE: Observation COMPLAINT: - ACUTE KIDNEY INJURY DIAGNOSES: - Other fracture of upper and lower end of right fibula, initia - Nicotine dependence, unspecified, uncomplicated - Acute kidney failure, unspecified - airline lounge receptionist (current) use of insulin - shelter (current) use of anticoagulants - Bathroom of unspecified non-institutional (private) residence - Other custodial (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 - Pain in right [...] mellitus with diabetic chronic kidney disease - airline lounge receptionist (current) use of anticoagulants - Other custodial (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 - Other specified postprocedural states - Hypertensive heart and chronic kidney disease without heart f - Chronic kidney disease, stage 4 (severe) - Allergy status to other antibiotic agents status - Nicotine dependence, unspecified, uncomplicated - Hyperlipidemia, unspecified - airline lounge receptionist (current) use of insulin - Unspecified atrial [...] diabetic chronic kidney disease - Dehydration - shelter (current) use of insulin - Type 2 diabetes mellitus with diabetic chronic kidney disease - Hyperlipidemia, unspecified - Paroxysmal atrial fibrillation - Hypertensive chronic kidney disease with stage 1 through stag - Other custodial (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 - Other z os mainframe systems programmer (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 - Nicotine dependence, unspecified, uncomplicated - Repeated falls - Contact with and (suspected) exposure to other viral communic - Allergy status to sulfonamides status - Repeated falls - Contact with and (suspected) exposure to other viral communic - Chronic kidney disease, stage 4 (severe) - Allergy status to sulfonamides status - Dehydration - shelter (current) use of insulin - Hypertensive chronic kidney disease with stage 1 through stag - Allergy status to other antibiotic agents status - shelter (current) use of anticoagulants - airline lounge receptionist (current) use of anticoagulants - Hyperlipidemia, unspecified - Allergy status to other drugs, medicaments and biological sub 10/05/2019 22:09 [facility] Sharyn [facility]LO[facility] TYPE: Surgical Services DIAGNOSES: - Acute diastolic (congestive) heart failure - Chronic kidney disease, stage 4 (severe) - Afib - Tobacco use - Unspecified atrial fibrillation - Paroxysmal atrial fibrillation 09/17/2019 06:54 [facility] [place] TYPE: Observation COMPLAINT: - NEW ONSET AFIB RVR DIAGNOSES: - Acute kidney failure, unspecified - airline lounge receptionist (current) use of oral hypoglycemic drugs - Chronic kidney disease, unspecified - Hypertensive chronic kidney disease with stage 1 through stag - Unspecified atrial fibrillation - Palpitations - Allergy status to sulfonamides status - shelter (current) use of aspirin - Type 2 diabetes mellitus with diabetic nephropathy - Other custodial (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 - Type 2 diabetes mellitus with diabetic chronic kidney disease - Allergy status to other drugs, medicaments and biological sub - Nicotine dependence, unspecified, uncomplicated - Allergy status to other antibiotic agents status [email or web address]
[2020-01-14] MEDS ORDERED: VITAMIN D325 MCG PO (19:14)
[2020-01-14] MEDS ORDERED: JANTOVEN2 MG PO (19:14)
[2020-01-14] MEDS ORDERED: MELATONIN3 MG PO (19:16)
[2020-01-14] MEDS ORDERED: TOPROL XL50 MG PO (19:16)
[2020-01-14] MEDS ORDERED: PACERONE200 MG PO (19:16)
[2020-01-14] MEDS ORDERED: PRAMIPEXOLE0.125 MG PO (19:18)
[2020-01-14] MEDS ORDERED: EZALLOR SPRINKL10 MG PO (19:19)
[2020-01-14] MEDS ORDERED: PROTONIX40 MG PO (19:19)
[2020-01-14] MEDS ORDERED: METAFOLBIC TAB1 EACH PO (19:20)
[2020-01-14] MEDS ORDERED: NORCO 5-325 TA1 EACH PO (19:23)
[2020-01-14] MEDS ORDERED: HYDRALAZINE HCL10 MG PO (19:24)
[2020-01-14] MEDS ORDERED: ZOFRAN4 MG PO (19:25)
[2020-01-14] MEDS ORDERED: DICYCLOMINE HCL20 MG PO (19:50)
--- NOTE | 2020-01-15 00:23 | NUR ---
HELPED GET PT INTO HER BED. TELE PUT ON. VITALS AND WEIGHT DONE. FRESH ICE WATER GIVEN. BEDSIDE TABLE AND CALL LIGHT IN REACH.
--- NOTE | 2020-01-15 00:25 | NUR ---
PT ARRIVED TO FLOOR VIA STRETCHER AT 0002. SHE WAS MOVED OVER WITH A LITTLE ASSISTANCE. SHE IS ON 3LNC AND RESPIRATIONS ARE EVEN AND NONLABORED. VS ENTERED AND PT HAS FRESH WATER AT BEDSIDE. SHE WOULD LIKE TO EAT, WILL BRING FOOD. PT DENIES FURTHER NEEDS AND IS ORIENTED TO CALL LIGHT/ROOM. CALL LIGHT IS CLOSE.
--- NOTE | 2020-01-15 00:52 | NUR ---
ASSESSMENT COMPLETED. LUNGS CLEAR IN UPPER LOBES, DIMINISHED IN LOWER LOBES. NC @ 3L. HR SR @ 84. ABD SOFT, TENDER, BOWEL TONES ACTIVE. BLE 2+, PT WEARS A BOOT ON RLE FROM PREVIOUS FX. CMS INTACT X 4 EXTREMITIES. GCS 15. A&O X4. PT USES A WALKER AT BASELINE. PT EATING SNACK NOW, TOLERATING WELL. IV WNL, CDI, FLUSHED WELL. SCATTERED BRUISING NOTED. RIGHT LOWER LEG HAS A DRY, PEELING AREA. ICE WATER PROVIDED. NO OTHER NEEDS AT THIS TIME. CALL LIGHT IN REACH.
--- NOTE | 2020-01-15 04:57 | NUR ---
VITALS AND I&OS DONE AND CHARTED. BEDSIDE TABLE AND CALL LIGHT IN REACH.
--- NOTE | 2020-01-15 05:45 | NUR ---
ASSESSMENT COMPLETED. UPPER LUNG LOBES CLEAR, LOWER LOBES HAVE CRACKLES. ABD SOFT, TENDER, 2+ BLE, BOOT ON RIGHT FOOT FOR PREVIOUS FX. IV WNL. NC @ 3L, SPO2 95% PEELING NOTED ON BOTH FEET. DISCOLORATION NOTED ON LEFT FOOT AND LEG FROM PREVIOUS CELLULITIS. IV WNL. NO OTHER NEEDS AT THIS TIME. CALL LIGHT IN REACH.
--- NOTE | 2020-01-15 06:17 | NUR ---
pt complains of nausea, prn nausea med provided. no other needs. call light in reach.
--- NOTE | 2020-01-15 09:26 | NUR ---
PATIENT RESTING IN BED. VITAL SIGNS AND I&O DONE. CALL LIGHT WITHIN REACH. NO OTHER NEEDS AT THIS TIME
--- NOTE | 2020-01-15 10:19 | NUR ---
Pt resting in bed, alert and oriented x4. Pt is on 3L per nc, respirations even and non labored. Pt has no distress noted. Personal supplies and call light within reach.
--- NOTE | 2020-01-15 10:35 | NUR ---
CALL LIGHT ANSWERED. PATIENT USING THE BASE COMMODE. PATIENT BACKS TO BED. ONE PERSON ASSISTING. CALL LIGHT WITHIN REACH. NO OTHER NEEDS AT THIS TIME
--- NOTE | 2020-01-15 14:04 | NUR ---
PATIENT SITTING UP IN BED. VITAL SIGNS AND I&O DONE. CALL LIGHT WITHIN REACH. NO OTHER NEEDS AT THIS TIME
--- NOTE | 2020-01-15 17:23 | NUR ---
Instructed pt to not eat or drink until US is completed. Pt verbalized her understanding.
--- NOTE | 2020-01-15 17:31 | NUR ---
PATIENT RESTING IN BED. VITAL SIGNS AND I&O DONE. CALL LIGHT WITHIN REACH. NO OTHER NEEDS AT THIS TIME
--- NOTE | 2020-01-15 18:25 | NUR ---
SL. A&OX4. 3L oxygen per nc. SOB with activity. 60G carb/2na diet. Pivot to commode. Boot right foot for old fx. BS checks. Pt calls approp.
--- NOTE | 2020-01-15 19:01 | NUR ---
RECEIVED REPORT FROM CANDE CHEUNG. pt RESTING IN BED. DISCUSSED PAIN MANAGEMENT. NO REQUESTS AT THIS TIME. CALL LIGHT WITHIN REACH. WHITEBOARD UPDATED.
--- NOTE | 2020-01-15 19:15 | NUR ---
RECEIVED REPORT FROM CANDE BAIRD. pt RESTING IN BED EATING. NO REQUESTS AT THIS TIME. WHITEBOARD UPDATED. CALL LIGHT WITHIN REACH.
--- NOTE | 2020-01-15 21:41 | NUR ---
SPOKE WITH DR SANDRA ESPITIA ORDERED WHEN pt TAKES WARFARIN. HOLD OMKAR LOPEZ.
--- NOTE | 2020-01-15 21:46 | NUR ---
IN TO DO ASSESSMENT. pt DROWSY. DENIED PAIN AT THIS TIME. REPORTED SHE DID NOT TAKE ELIQUIS AT HOME. CONFIRMED WITH HER NEON MAR. ASSESSMENT DONE. VITALS RECORDED. MEDICATIONS GIVEN (SEE MAR). NO FURTHER REQUESTS AT THIS TIME. CALL LIGHT WITHIN REACH. LIGHTS OFF FOR COMFORT.
--- NOTE | 2020-01-15 22:50 | NUR ---
CALL LIGHT ON. pt UP TO BSC 1PA PIVOT. CALL LIGHT WITHIN REACH.
--- NOTE | 2020-01-15 23:04 | NUR ---
TELE BATTERY REPLACED.
--- NOTE | 2020-01-16 01:01 | NUR ---
ROUNDED ON pt. AWAKE IN BED. SPOKE ABOUT CURRENT ILLNESSES AND HOW THE pt WANTS TO GO HOME. DISCUSSED FOOD AND PROVIDED A SNACK. ASSISTED TO REPOSITION. NO FURTHER REQUESTS AT THIS TIME. CALL LIGHT WITHIN REACH.
--- NOTE | 2020-01-16 03:15 | NUR ---
ROUNDED ON pt. RESTING IN BED WITH EYES CLOSED, RESPIRATIONS REGULAR AND UNLABORED. CALL LIGHT WITHIN REACH.
--- NOTE | 2020-01-16 06:20 | NUR ---
pt AWAKE. UP TO BSC 1PA PIVOT BSC. DAILY WEIGHT. ASSESSMENT DONE. VITALS AND I&O RECORDED. SPOKE ABOUT HER RECOVERY. pt WILL ORDER BREAKFAST. NO FURTHER REQUESTS AT THIS TIME. CALL LIGHT WITHIN REACH.
--- NOTE | 2020-01-16 07:35 | NUR ---
PATIENT SLEEPING. WHITE BOARD UPDATED. CALL LIGHT WITHIN REACH. NO OTHER NEEDS AT THIS TIME
--- NOTE | 2020-01-16 07:36 | NUR ---
Pt resting awake in bed, respirations even and non labored. Pt on room air, denies shortness of breath. No needs, personal supplies within reach.
[2020-01-16] MEDS ORDERED: WARFARIN SODIUM3 MG PO (08:00)
[2020-01-16] MEDS ORDERED: WARFARIN SODIUM2 MG PO (08:01)
[2020-01-16] MEDS ORDERED: IRON325 M1 PO (08:14)
[2020-01-16] MEDS ORDERED: FISH OIL CONC1000 MG PO (08:15)
[2020-01-16] MEDS ORDERED: ZESTRIL5 MG PO (09:39)
[2020-01-16] MEDS ORDERED: SENNA LAX8.6 MG PO (09:40)
[2020-01-16] MEDS ORDERED: IPRAT-ALBUT 0.5-3 ML INH (09:43)
[2020-01-16] MEDS ORDERED: BENADRYL25 MG PO (09:45)
[2020-01-16] MEDS ORDERED: LAXATIVE SUPPOS10 MG PR (09:49)
[2020-01-16] MEDS ORDERED: FLEET ENEMA133 ML PO (09:50)
[2020-01-16] MEDS ORDERED: ZOFRAN4 MG PO (09:52)
[2020-01-16] MEDS ORDERED: WARFARIN SODIUM1 MG PO (10:40)
--- NOTE | 2020-01-16 10:41 | NUR ---
Medications reconciled. Patient had last warfarin dose of 1.5mg on 01/13/20 Current dose = warfarin 1mg daily per PCP. Last INR 01/12/20 = 1.8
--- NOTE | 2020-01-16 11:50 | NUR ---
ASSISTED PATIENT TO BSC. NEW BRIEF WAS NEEDED. LINENS CHANGED. WILL CALL WHEN READY.
--- NOTE | 2020-01-16 12:02 | NUR ---
Assisted pt pivot transfer to bedside commode. small very soft formed stool noted. Pt remains on room air, no respiratory distress noted, spot check done, sat level of 91%. Call light within reach. No needs.
--- NOTE | 2020-01-16 15:10 | NUR ---
Pt walked in hallway with ENERGY TECHNICIAN; tolerated well with walker/SBA.
--- NOTE | 2020-01-16 15:20 | NUR ---
PATIENT AMBULATED HALLS WITH BULK PLANT OPERATOR USING FWW AND GAIT BELT. BACK TO ROOM, FRESH ICE WATER GIVEN. CALL LIGHT IN REACH, NO OTHER NEEDS AT THIS TIME
--- NOTE | 2020-01-16 17:13 | NUR ---
PATIENT SITTING UP IN BED. VITAL SIGNS AND I&O DONE. CALL LIGHT WITHIN REACH. NO OTHER NEEDS AT THIS TIME
--- NOTE | 2020-01-16 19:12 | NUR ---
RECEIVED REPORT FROM CANDE BAIRD. pt FINISHED EATING DINNER. WHITEBOARD UPDATED. NO REQUESTS AT THIS TIME. CALL LIGHT WITHIN REACH.
--- NOTE | 2020-01-16 20:28 | NUR ---
VITALS DONE AND CHARTED. BEDSIDE TABLE AND CALL LIGHT IN REACH. PT IS ASKING FOR HER MEDS. I INFORMED HER RN GALE. PT NEEDS NOTHING MORE AT THIS TIME.
--- NOTE | 2020-01-16 21:00 | NUR ---
SCHEDULED MEDICATION ADMINISTERED FOR RESTLESS LEGS. 1PA WITH FWW TO RESTROOM FOR VOID AND BACK TO BED. pt DENIES NEED FOR PAIN MEDICATION AT THIS TIME. CBG 236. SPIRITUAL CARE, pt'S DAUGHTER IN-LAW IN ROOM. PRIMARY RN GALE IN ROOM AT THIS TIME. CALL LIGHT IN REACH.
--- NOTE | 2020-01-16 21:15 | NUR ---
IN TO GIVE INSULIN AND DO ASSESSMENT. pt REPORTED HER LEGS WHERE RESTLESS, NO OTHER COMPLAINTS AT THIS TIME. ASSESSMENT DONE. MEDICATION GIVEN (SEE MAR). pt CHATTING WITH HER DAUGHTER IN LAW. CALL LIGHT WITHIN REACH.
--- NOTE | 2020-01-16 22:18 | NUR ---
CALL LIGHT ANSWERED. PRN PAIN MEDICATION ADMINISTERED FOR 5/10 PAIN IN LEGS. "THEY'RE HURTING, AND I CAN'T SLEEP". ICE WATER PROVIDED. CALL LIGHT AND PERSONAL SUPPLIES IN REACH.
--- NOTE | 2020-01-16 22:42 | NUR ---
PER PT REQUEST I GAVE HER A WARM WASHCLOTH FOR HER EYE. BEDSIDE TABLE AND CALL LIGHT IN REACH. SHE NEEDS NOTHING MORE AT THIS TIME.
--- NOTE | 2020-01-17 00:16 | PATH ---
[facility] [address] [place], [place] [address] Signed ORDERING PHYSICIAN: Robert Lockhart MD PATIENT NAME: SHARYN HAND GENDER: F : 1950 SPECIMEN(S): No Source Given MOLECULAR PATHOLOGY RESULTS: SARS-CoV-2 Not Detected ADDITIONAL NOTES.: The [place] Fusion SARS-CoV-2 Assay is a multiplex real-time PCR (RT-PCR) in vitro diagnostic test intended for the qualitative detection of RNA from SARS-CoV-2 from individuals who meet COVID-19 clinical and/or epidemiological criteria. In general, SARS-CoV-2 RNA can be detected during the acute phase of infection. Positive results indicate the presence of SARS-CoV-2 RNA. Clinical correlation with patient history and other diagnostic information is necessary to determine patient infection status. Positive results do not rule out bacterial infection or co-infection with other viruses. Negative results do not preclude SARS-CoV-2 infection and should not be used as the sole basis for patient management decisions. Negative results must be combined with other clinical observations, patient history, and epidemiological information. The [place] Fusion SARS-CoV-2 Assay is not yet approved or cleared by the [place] FDA. When there are no FDA-approved or cleared tests available, and other criteria are met, FDA can make tests available under an emergency access mechanism called an Emergency Use Authorization (EUA). The EUA for this test is supported by the [place] of Health and Human Service's (HHS's) declaration that circumstances exist to justify the emergency use of in vitro diagnostics for the detection and/or diagnosis of the virus that causes COVID-19. This EUA will remain in effect for the duration of the COVID-19 declaration justifying emergency of IVDs, unless it is terminated or revoked by FDA, after which the test may no longer be used. The [place] Fusion SARS-CoV-2 Assay is for use only under EUA in US laboratories certified under the Clinical Laboratory Improvement Amendments of 1988 (CLIA) to perform high complexity tests. [facility] is certified under CLIA to perform high complexity PATIENT NAME: SHARYN HAND PATHOLOGY DATE OF : 48 REPORT #: [id number] PHYSICIAN: CLIFF HUBER PCP: SHARYN SNYDER REPORT IS CONFIDENTIAL AND NOT TO BE RELEASED WITHOUT AUTHORIZATION [facility] [address] [place] [id number] Signed clinical laboratory testing. PERFORMING LABORATORY.: Molecular testing was performed by [facility] [place] [address] (Loan Assistant: Ion Watt D.O.; CLIA#: [id number]) Diagnostician: System Interface Pathologist Electronically Signed 01/16/2020 Copies: ~ PATIENT NAME: SHARYN HAND PATHOLOGY DATE OF : [birth year] REPORT #: [id number] PHYSICIAN: CLIFF HUBER PCP: SHARYN SNYDER REPORT IS CONFIDENTIAL AND NOT TO BE RELEASED WITHOUT AUTHORIZATION
--- NOTE | 2020-01-17 00:21 | NUR ---
ROUNDED ON pt. RESTING IN BED WITH EYES CLOSED, RESPIRATIONS REGULAR AND UNLABORED. CALL LIGHT WITHIN REACH.
--- NOTE | 2020-01-17 01:55 | NUR ---
CALL LIGHT ANSWERED. pt DIAPHORETIC, STATES CAN'T CATCH BREATH, 2L OXYGEN BY NC APPLIED, SPO2 91%. CBG 50 MG/DL AT THIS TIME. GRAPE JUICE, SARAH CRACKERS PROVIDED. PRIMARY RN GALE IN ROOM.
--- NOTE | 2020-01-17 02:28 | NUR ---
pt WOKE DIAPHORETIC AND SOB. MUCH IMPROVED WITH CARBS. BS RECHECKED 87. pt REPORTS "I FEEL DEREK MUCH BETTER." ASSESSMENT DONE. NO CHANGES. pt REPORTS THAT HER RESTLESS LEGS HAVE "CALMED DOWN" NO FURTHER REQUESTS AT THIS TIME. CALL LIGHT WITHIN REACH.
--- NOTE | 2020-01-17 04:30 | NUR ---
ROUNDED ON pt. RESTING WITH EYES CLOSED, RESPIRATIONS REGULAR AND UNLABORED. CALL LIGHT WITHIN REACH.
--- NOTE | 2020-01-17 05:30 | NUR ---
ROUNDED ON pt. AWAKE. VITALS DONE. BLOOD SUGAR >100. PROVIDED A WARM BLANKET. pt WOULD LIKE TO WAIT TO GET UP. NO FURTHER REQUESTS AT THIS TIME. CALL LIGHT WITHIN REACH.
--- NOTE | 2020-01-17 06:03 | NUR ---
DAILY STANDING WEIGHT DONE AND CHARTED. HELPED HER ON THE BSC. SHE WILL CALL WHEN SHE IS READY.
--- NOTE | 2020-01-17 06:11 | NUR ---
pt RESTED ON AND OFF DURING SHIFT. WOKE WITH A LOW BLOOD SUGAR, CORRECTED WITH PO INTAKE. ACCU CHECK ACHS, LONG ACTING AND SS INSULIN. 1PA FWW, BOOT TO RIGHT LEG FROM PRIOR FRACTURE. TOLERATING 60GM CARB/2GM SODIUM DIET WITH FLUID RESTRICTION. USES CALL LIGHT APPROPRIATELY.
--- NOTE | 2020-01-17 07:51 | NUR ---
Pt awake, alert and oriented x4. Pt recently ordered breakfast per her report. Pt has no notable distress. Boot noted to right lower ext. Pt denies needs. Personal supplies and call light wtihin reach.
--- NOTE | 2020-01-17 09:57 | NUR ---
PATIENT SITTING UP IN BED WATCHING TV. WARM WASHCLOTH GIVEN. NO VOID, RN NOTIFIED. CALL LIGHT IN REACH. NO FURTHER NEEDS AT THIS TIME.
--- NOTE | 2020-01-17 10:57 | NUR ---
PATIENT AMBULATED IN HALLWAY, A FWW. PATIENT NOW BACK TO BED. CALL LIGHT IN REACH. NO FURTHER NEEDS AT THIS TIME.
--- NOTE | 2020-01-17 10:57 | NUR ---
PT ALERT, ORIENTED AND SITTING UP IN BED WATCHING TV HAVING JUST FINISHED B.FAST. PT SHARED WITH ME WHAT HAS BEEN HAPPENING, WITH HER BODY. RESTLESS LEG SYNDROME IS A CONSTANT ISSUE. SEEMS PLEASED WITH CARE SHE IS RECEIVING AT [facility].PT APPARENTLY NEEDED TO TALK, WHICH I ALLOWED HER TO DO. AFTER THEN SHARING HER STORY I GIVE COMFORT, PT REQUESTED PRAYER. WILL FOLLOW
--- NOTE | 2020-01-17 12:48 | NUR ---
Pt sitting up in bed, respirations even and non labored. Pt denies pain at this time. Personal supplies and call light within reach. No needs at this time.
--- NOTE | 2020-01-17 13:30 | NUR ---
Pt on phone when attempted to visit x 2. Will see tomorrow for assessment.
--- NOTE | 2020-01-17 14:21 | NUR ---
PATIENT SITTING ON EDGE OF BED LOOKING OUTSIDE. CALL LIGHT IN REACH. NO FURTHER NEEDS AT THIS TIME.
--- NOTE | 2020-01-17 15:04 | NUR ---
Patient taking a nap, eyes closed, respirations are even and non labored. Pt has no notable distress. Personal supplies and call light within reach.
[2020-01-17] MEDS ORDERED: LASIX20 MG PO (16:18)
--- NOTE | 2020-01-17 17:11 | NUR ---
Certified Heart Failure Nurse Notes: Huc Ob: Patient reports she has seen one since August Date of echocardiogram Admit BNP:789 Social support system: Son. Lives alone. Temporarily at [facility] Patient did not seem aware of heart failure diagnosis. Heart failure definition explained. Weight monitoring: Scale present in home. Discussed how to weigh daily/ identified when to notify PCP Symptom management: Addressed monitoring and reporting changes in weight or symptoms utilizing Zones form. Patient did recognize that her weight went steadily up week before returning to hospital. Diet: Usual meals include frozen meats and vegetables. Does use shredded cheese on some foods. States that she loves vegetables. Low sodium diet and rationale explained to patient. Medication routine: Does have 3 weekly pill reminder boxes at home. Denies missing medications. Tobacco: Counseling completed by RT Advanced directive: Not discussed at this initial visit Recommendations prior to discharge (as per [facility] Heart Failure DC Bundle): Document ambulation oxygen saturations prior to discharge Absence of orthostatic hypotension. Discharge weight less than admit weight. Discharge BNP less than admit Reinforce heart failure self-care measures Barriers to self-care include: Alteration in activity. Knowledge deficit. Follow-up plans: Will return tomorrow to give patient Low Sodium Shopping list and better option frozen meals handout. Patient is planning on returning to SNF and then later to home. Welcomed patient to call this service PRN for HF assistance. Teaching materials at bedside [facility] Heart Failure bundle folder-[facility] My Action Plan Living Well with Heart Failure book, Daily weight and symptom monitoring log, Zones magnet, given. Given [facility] contact information.
[2020-01-17] MEDS ORDERED: TORSEMIDE20 MG PO (17:36)
[2020-01-17] MEDS ORDERED: LANTUS100 UNITS/ SUB-Q (17:37)
[2020-01-17] MEDS ORDERED: NORCO 5-325 TA1 EACH PO (17:38)
--- NOTE | 2020-01-17 19:21 | NUR ---
RECEIVED REPORT FROM CANDE BAIRD. pt RESTING IN BED. NO REQUESTS AT THIS TIME. WHITEBOARD UPDATED. CALL LIGHT WITHIN REACH.
--- NOTE | 2020-01-17 21:15 | NUR ---
IN TO DO ASSESSMENT AND MEDICATIONS. pt REPORTED HER RESTLESS LEGS ARE "SETTLING DOWN, BUT I MIGHT NEED PAIN MEDS." WILL CALL IF NEEDED. ASSESSMENT DONE. MEDICATIONS GIVEN (SEE MAR). NO FURTHER REQUESTS AT THIS TIME. CALL LIGHT WITHIN REACH.
--- NOTE | 2020-01-17 23:40 | NUR ---
ROUNDED ON pt. RESTING WITH EYES CLOSED, RESPIRATIONS REGULAR AND UNLABORED. CALL LIGHT WITHIN REACH.
--- NOTE | 2020-01-18 01:50 | NUR ---
ROUNDED ON pt. SITTING IN BED AWAKE. REPORTED "I SLEPT WELL THERE FOR A BIT." TALKED ABOUT HER PLANS AND HOUSING SITUATION FOR A QUITE A WHILE. ASSESSMENT DONE. NO CHANGES NOTED. NO REQUESTS AT THIS TIME. CALL LIGHT WITHIN REACH.
--- NOTE | 2020-01-18 03:50 | NUR ---
ROUNDED ON pt. RESTING IN BED WITH EYES CLOSED, RESPIRATIONS REGULAR AND UNLABORED. CALL LIGHT WITHIN REACH.
--- NOTE | 2020-01-18 05:00 | NUR ---
pt MOANING. IN TO ASSESS. pt REPORTED THAT SHE WAS TIRED "OF JUST SITTING HERE." SUGGESTED A WALK. pt AGREEABLE. UP TO VOID. CALL LIGHT WITHIN REACH. DISTRICT ASSOCIATE JUDGE INFORMED OF PLANS.
--- NOTE | 2020-01-18 07:46 | NUR ---
Pt awake, alert and oriented x4. Pt assisted to bathroom and back to bed without difficulty. Breakfast ordered. Personal supplies and call light within reach.
--- NOTE | 2020-01-18 08:37 | NUR ---
PATIENT AWAKE AND EATING BREAKFAST. NO FURTHER NEEDS AT THIS TIME.
--- NOTE | 2020-01-18 09:20 | NUR ---
PATIENT VITALS SIGNS AND I&O'S DOCUMENTED. NO FURTHER NEEDS AT THIS TIME.
--- NOTE | 2020-01-18 10:10 | NUR ---
PT READY FOR DISCHARGE, PTS SON HERE TO TRANSFER PT TO [place]. PT SITTING UP ON EDGE OF BED AND ANXIOUS TO LEAVE STATING "THE SOONER I GET TO [place] THE SOONER I CAN GO HOME." DISCHRAGE PLAN REVIEWED WITH PT. PT VERBALIZES UNDERSTANDING. VITALS TAKEN. IV DC'D PER PROTOCOL, GAUZE AND COBAN APPLIED. PT TRANSFERSE SELF TO HOME WHEELCHAIR WITH 1 PERSON ASSIST. PT WHEELED FORM UNIT WITH ALL BELONGINGS. SON MET AT FRONT. DISCHRAGE PACKET GIVEN TO SON AND INSTRUSTIONS EXPLAINED. PTS SON VERBALIZES UNDERSTANDING AND STATES HIS QUESTIONS HAVE BEEN ANSWERED. SON ASKED TO GIVE PACKET TO [employer] EMPLOYEES UPON ARRIVAL, VERBALIZES UNDERSTANDING. NO ADDITOINAL REQUESTS OR CONCERNS. REPORT CALLED TO [place] BY PTS RNHANH.
--- NOTE | 2020-01-18 10:27 | NUR ---
Report called CANDE [facility] at [place].
== END 2020-01-18 10:10 | DRG 291 ==
LOC: ED 16:57 → MS 16:58
PROVIDERS: ADMIT Internal Medicine
DX: I13.0 Hypertensive heart and chronic kidney disease with heart failure and stage 1 through stage 4 chronic kidney disease, or unspecified chronic kidney disease (principal); I50.33 Acute on chronic diastolic (congestive) heart failure; Z20.828 Contact with and (suspected) exposure to other viral communicable diseases; N18.3 Chronic kidney disease, stage 3 (moderate); E11.22 Type 2 diabetes mellitus with diabetic chronic kidney disease; S82.831D Other fracture of upper and lower end of right fibula, subsequent encounter for closed fracture with routine healing; E11.649 Type 2 diabetes mellitus with hypoglycemia without coma; I48.0 Paroxysmal atrial fibrillation; G25.81 Restless legs syndrome; K21.9 Gastro-esophageal reflux disease without esophagitis; E78.5 Hyperlipidemia, unspecified; F17.200 Nicotine dependence, unspecified, uncomplicated; Z88.2 Allergy status to sulfonamides; Z88.1 Allergy status to other antibiotic agents; Z88.8 Allergy status to other drugs, medicaments and biological substances; Z79.01 Long term (current) use of anticoagulants; Z79.4 Long term (current) use of insulin; Z79.891 Long term (current) use of opiate analgesic; Z79.899 Other long term (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
CPT/HCPCS: 36415; 71045; 74177; 76705; 80048; 80053; 80076; 81001; 83690; 83735; 83880; 85025; 85610; 94640; 94760; 96361; 96375; 99284-25; 99406; C9803; J1815; J1940; J2405; J3475; J7030

== ENCOUNTER 2020-03-03 23:49 | Emergency (ER) | payer OTHER ==
[~2020-03-03] VITALS: Ht 165.1 cm; Wt 80.7 kg
--- OUTSIDE RECORDS SUMMARY | ~2020-03-03 | XMS | Encounter Summary ---
Demographics + + + | Address | [address] | | | [place] [address] | + + + | Home Phone | | + + + | Preferred Language | Unknown | + + + | Marital Status | Unknown | + + + | Mandaen Affiliation | Unknown | + + + | Race | White | + + + | Ethnic Group | Unknown | + + + Author + + + | Author | [facility] | | | and [place] | + + + | Organization | [facility] | | [...] Team Providers + +------+ + | Care Arbitrator Name | Role | Phone | + +------+ + | Lizet Oliva | PCP | | + +------+ + Reason for Visit +---------+ + | Reason | Comments | +---------+ + | Results | 01/04/20 | +---------+ + Encounter Details +--------+ + + + + | Date | Type | Department | Care Team | Description | +--------+ + + + + | 01/04/ | Documentati | [facility] | [place], | Results (01/04/20) | | 2020 | on | NEPHROLOGY JUAN | Naomi Seo | | | | | [address] | Senior Resident Care Director | | | | | [address] [facility], [place] | | | | | | [address] | | | | | | [phone] | | | +--------+ + + + [...] Description | +--------+---------+ + + + | 03/08/ | Office | Cardiology | Denia Nicole | | | 2020 | Visit | | [facility] [address] | | | | | [address] | | | | | | [place] [address] | | | | | | [phone] | | | | | | | | +--------+---------+ + + + | 03/13/ | Office | Sleep Medicine | Dann Schmid MD | | | 2020 | Visit | | [address] | | | | | | [place] | | | | | | [address] | | | | | | | | +--------+---------+ + + + documented as of this encounter Procedures + +--------+ + + + | Procedure Name | Priori | Date/Time | Associated Diagnosis | Comments | | | ty | | | | + +--------+ + + + | EXTERNAL LAB: PTH, | Routin | 01/04/2020 | | Results for this | | INTACT | e | | | procedure are in the | | | | | | results section. | + +--------+ + + + | CBC NO DIFFERENTIAL | Routin | 01/04/2020 | | Results for this | | | e | | | procedure are in the | | | | | | results section. | + +--------+ + + + | PROTEIN/CREATININE | Routin | 01/04/2020 | | Results for this | | RATIO, URINE | e | | | procedure are in the | | | | | | results section. | + +--------+ + + + | URINALYSIS | Routin | 01/04/2020 | | Results for this | | | e | | | procedure are in the | | | | | | results section. | + +--------+ + + + | URIC ACID | Routin | 01/04/2020 | | Results for this | | | e | | | procedure are in the | | | | | | results section. | + +--------+ + + + | RENAL FUNCTION PANEL | Routin | 01/04/2020 | | Results for this | | | e | | | procedure are in the | | | | | | results section. | + +--------+ + + + documented in this encounter Results External Lab: PTH, Intact (01/04/2020) + +-------+ + + + | Component | Value | Ref Range | Performed | Pathologist | | | | | At | Signature | + +-------+ + + + | PTH Intact, | 41.25 | 15 - 65 | | | | External | | | | | + +-------+ + + + + + | Specimen | + + | | + + Urinalysis (01/04/2020) + + + + + + | Component | Value | Ref Range | Performed | Pathologist | | | | | At | Signature | + + + + + + | Color, UA | yellow | | | | + + + + + + | Clarity, | slightly cloudy | | | | | Urine | | | | | + + + + + + | pH, Urine | 5 | | | | + + + + + + | Protein, | 300 | | | | | Total | | | | | + + + + + + | Glucose | 0 | mg/dL | | | + + + + + + | Specific | 1.013 | | | | | [place], | | | | | | Urine | | | | | + + + + + + | Blood, UA | moderate | | | | + + + + + + | Nitrite, UA | negative | | | | + + + + + + | Urobilinoge | normal | | | | | n, Ur | | | | | + + + + + + | Ketones, UA | negative | | | | + + + + + + | Bilirubin, | negative | | | | | UA | | | | | + + + + + + | CASTS | Negative | | | | + + + + + + | WBC UA | 2.0 | /hpf | | | + + + + + + | RBC UA | 30 | /HPF | | | + + + + + + | Leukocyte | negative | | | | | esterase, | | | | | | UA | | | | | + + + + + + | EPITHELIAL | 1 | /LPF | | | | CASTS UA | | | | | + + + + + + | CRYSTAL UA | Negative | | | | + + + + + + | Bacteria, | 4+ (A) | Negative /HPF | | | | Urine | | | | | + + + + + + + + | Specimen | + + | Urine | + + CBC with Manual Differential (01/04/2020) + + + + + + | Component | Value | Ref Range | Performed | Pathologist | | | | | At | Signature | + + + + + + | WBC | 4.5 | 4.5 - 11.0 | | | | | | 10*3/uL | | | + + + + + + | Red Blood | 3.67 (A) | 3.80 - 5.10 | | | | Cells | | M/uL | | | + + + + + + | Hemoglobin | 10.7 (A) | 12 - 16 | | | + + + + + + | Hematocrit | 31.5 (A) | 35.0 - 45.0 % | | | + + + + + + | Platelet | 301 | 140 - 440 | | | | Count | | | | | | Plasma | | | | | + + + + + + | % | 52.5 | 39.0 - 80.0 % | | | | Neutrophils | | | | | + + + + + + | % | 36.3 | 24.0 - 44.0 % | | | | Lymphocytes | | | | | + + + + + + | Monocyte % | 7.8 | 0 - 12 | | | + + + + + + | MCV | 85.7 | 81.0 - 99.0 fL | | | + + + + + + | RDW-SD | 17.3 (A) | 10.5 - 15.0 | | | + + + + + + | MCH | 29.0 | 27.0 - 33.0 pg | | | + + + + + + | MCHC | 34.0 | 30.0 - 36.0 | | | | | | g/dL | | | + + + + + + | Eosinophils | 2.3 | 0 - 6 | | | | % | | | | | + + + + + + | Basophils % | 1.1 | 0 - 2 | | | + + + + + + + + | Specimen | + + | Blood | + + Renal Function Panel (01/04/2020) + + + + + + | Component | Value | Ref Range | Performed | Pathologist | | | | | At | Signature | + + + + + + | Na | 139 | 132 - 143 | | | | | | mmol/L | | | + + + + + + | K | 4.8 | 3.6 - 5.1 | | | | | | mmol/L | | | + + + + + + | Cl | 107 | 95 - 112 mmol/L | | | + + + + + + | CO2 | 25 | 19 - 31 mmol/L | | | + + + + + + | Anion Gap | 12 | 7 - 21 mmol/L | | | + + + + + + | Glucose | 147 (A) | 70 - 100 mg/dL | | | + + + + + + | BUN | 37 (A) | 6 - 23 mg/dL | | | + + + + + + | Creatinine | 2.41 (A) | 0.70 - 1.18 | | | | | | mg/dL | | | + + + + + + | Estimated | 20.0 (A) | 60.0 - 140.0 | | | | GFR | | mL/min/1.73m2 | | | + + + + + + | BUN/Creatin | 15.4 | 6.0 - 28.6 | | | | ine Ratio | | | | | + + + + + + | Albumin | 3.3 (A) | 3.5 - 5.0 g/dL | | | + + + + + + | Calcium | 8.7 | 8.5 - 10.3 | | | + + + + + + | PHOSPHORUS | 4.1 | 2.5 - 5.0 | | | + + + + + + + + | Specimen | + + | Blood | + + Protein/Creatinine Ratio, Urine (01/04/2020) + + + + + + | Component | Value | Ref Range | Performed | Pathologist | | | | | At | Signature | + + + + + + | Protein/Cre | 5,822.8 (A) | 0 - 150 | | | | at Ratio | | | | | + + + + + + + + | Specimen | + + | Urine | + + Uric Acid (01/04/2020) + +-------+ + + + | Component | Value | Ref Range | Performed | Pathologist | | | | | At | Signature | + +-------+ + + + | Uric Acid | 6.3 | 2.3 - 6.6 | | | + +-------+ + + + + + | Specimen | + + | Blood | + + documented in this encounter Visit Diagnoses Not on filedocumented in this encounter"
--- OUTSIDE RECORDS SUMMARY | ~2020-03-03 | XMS | Encounter Summary ---
Demographics + + + | Address | [address] | | | [place] [address] | + + + | Home Phone | | + + + | Preferred Language | Unknown | + + + | Marital Status | Unknown | + + + | Anabaptism Affiliation | Unknown | + + + [...] Team Providers + +------+ + | Care Center Specialists Name | Role | Phone | + +------+ + | Lizet Oliva | PCP | | + +------+ + Reason for Visit +---------+ + | Reason | Comments | +---------+ + | Results | 11/01/19 | +---------+ + Encounter Details +--------+ + + + + | Date | Type | Department | Care Team | Description | +--------+ + + + + | 11/04/ | Documentati | [facility] | [place], | Results (11/01/19) | | 2020 | on | NEPHROLOGY JUAN | Naomi Seo | | | | | [address] | [place] | | | | | [address] [facility] [place] | | | | | | [address] | | | | | | [phone] | | | +--------+ + + + [...] | | | | | [place] [address] | | | | | | [phone] | | | | | | | | +--------+---------+ + + + | 03/13/ | Office | Sleep Medicine | Dann Schmid MD | | | 2020 | Visit | | [address] | | | | | | [place] | | | | | | [address] | | | | | | | | +--------+---------+ + + + documented as of this encounter Procedures + +--------+ + + + | Procedure Name | Priori | Date/Time | Associated Diagnosis | Comments | | | ty | | | | + +--------+ + + + | IMMUNOFIXATION, | Routin | 11/01/2019 | | Results for this | | SERUM | e | | | procedure are in the | | | | | | results section. | + +--------+ + + + | CBC NO DIFFERENTIAL | Routin | 11/01/2019 | | Results for this | | | e | | | procedure are in the | | | | | | results section. | + +--------+ + + + | KAPPA AND LAMBDA | Routin | 11/01/2019 | | Results for this | | LIGHT CHAIN RATIO | e | | | procedure are in the | | | | | | results section. | + +--------+ + + + | PROTEIN/CREATININE | Routin | 11/01/2019 | | Results for this | | RATIO, URINE | e | | | procedure are in the | | | | | | results section. | + +--------+ + + + | URINALYSIS | Routin | 11/01/2019 | | Results for this | | | e | | | procedure are in the | | | | | | results section. | + +--------+ + + + | URIC ACID | Routin | 11/01/2019 | | Results for this | | | e | | | procedure are in the | | | | | | results section. | + +--------+ + + + | RENAL FUNCTION PANEL | Routin | 11/01/2019 | | Results for this | | | e | | | procedure are in the | | | | | | results section. | + +--------+ + + + documented in this encounter Results Immunofixation, Serum (11/01/2019) + +-------+ + + + | Component | Value | Ref Range | Performed | Pathologist | | | | | At | Signature | + +-------+ + + + | Protein, | 6.1 | 6.0 - 8.3 | | | | Total | | | | | + +-------+ + + + | Albumin | 4.0 | 3.5 - 5.0 g/dL | | | + +-------+ + + + | ALPHA 1, BF | 0.16 | 0.1 - 0.32 | | | + +-------+ + + + | IgG Serum | 805 | 664 - 1,411 | | | + +-------+ + + + | Immunoglobu | 169 | 66 - 433 | | | | jaron A, | | | | | | Quant, CSF | | | | | + +-------+ + + + | ALPHA 2 %, | 0.73 | 0.54 - 0.90 | | | | BF | | | | | + +-------+ + + + | BETA 1, BF | 0.61 | 0.60 - 1.09 | | | + +-------+ + + + | GAMMA, BF | 0.63 | 0.36 - 1.8 | | | + +-------+ + + + | Other | 73 | 47 - 248 | | | + +-------+ + + + + + | Specimen | + + | Blood | + + Del Dios and Lambda Light Chain Ratio (11/01/2019) + +-------+ + + + | Component | Value | Ref Range | Performed | Pathologist | | | | | At | Signature | + +-------+ + + + | Del Dios FLC | 63.73 | | | | + +-------+ + + + | LAMBDA | 28.44 | | | | | LIGHT CHAIN | | | | | + +-------+ + + + | Del Dios/Lambd | 2.24 | | | | | a Free | | | | | | Light Chain | | | | | | Ratio | | | | | + +-------+ + + + + + | Specimen | + + | Blood | + + Urinalysis (11/01/2019) + + + + + + | Component | Value | Ref Range | Performed | Pathologist | | | | | At | Signature | + + + + + + | Color, UA | yellow | | | | + + + + + + | pH, Urine | clear | | | | + + + + + + | Protein, | 300 | | | | | Total | | | | | + + + + + + | Glucose | Comment: large | | | | + + + + + + | Clarity, | Clear | | | | | Urine | | | | | + + + + + + | Specific | 1.010 | | | | | [place], | | | | | | Urine | | | | | + + + + + + | Blood, | Small (A) | Negative | | | | Urine | | | | | + + + + + + | Nitrite, UA | negative | | | | + + + + + + | Urobilinoge | Normal | < 0.2 mg/dL, | | | [...] + + + + | CASTS | 3+ | | | | + + + + + + | WBC UA | 2 | /HPF | | | + + + + + + | RBC UA | 30 | /HPF | | | + + + + + + | Leukocyte | ne | | | | | esterase, | [...] + + + + | Bacteria, | 1+ (A) | Negative /HPF | | | | Urine | | | | | + + + + + + + + | Specimen | + + | Urine | + + CBC with Manual Differential (11/01/2019) + +-------+ + + + | Component | Value | Ref Range | Performed | Pathologist | | | | | At | Signature | + +-------+ + + + | WBC | 7.1 | 4.5 - 11.0 | | | + +-------+ + + + | Red Blood | 4.52 | 3.80 - 5.10 | | | | Cells | | M/uL | | | + +-------+ + + + | Hemoglobin | 13.2 | 12 - 16 | | | + +-------+ + + + | Hematocrit, | 37.4 | 35.0 - 45.0 % | | | | POC | | | | | + +-------+ + + + | MCV | 82.8 | 81.0 - 99.0 fL | | | + +-------+ + + + | MCH | 29.0 | 27.0 - 33.0 pg | | | + +-------+ + + + | MCHC | 35.0 | 30.0 - 36.0 | | | | | | g/dL | | | + +-------+ + + + | Platelet | 272 | 140 - 440 | | | | Count | | | | | | Plasma | | | | | + +-------+ + + + | RDW | 14.5 | 10.5 - 15.0 | | | + +-------+ + + + | BAL | 65 | 39 - 80 % | | | | Neutrophils | | | | | | % | | | | | + +-------+ + + + | % | 25.8 | 24 - 44 | | | | Lymphocytes | | | | | + +-------+ + + + | Monocyte % | 6.3 | 0 - 12 | | | + +-------+ + + + | Eosinophils | 1.4 | 0 - 6 | | | | % | | | | | + +-------+ + + + | % | 2 | 0 - 2 % | | | | Basophils, | | | | | | Body Fluid | | | | | + +-------+ + + + + + | Specimen | + + | Blood | + + Renal Function Panel (11/01/2019) + + + + + + | Component | Value | Ref Range | Performed | Pathologist | | | | | At | Signature | + + + + + + | Na | 135 | 132 - 143 | | | | | | mmol/L | | | + + + + + + | K | 4.0 | 3.6 - 5.1 | | | | | | mmol/L | | | + + + + + + | Cl | 101 | 95 - 112 mmol/L | | | + + + + + + | CO2 | 25 | 19 - 31 mmol/L | | | + + + + + + | Anion Gap | 13 | 7 - 21 mmol/L | | | + + + + + + | Glucose | 276 (A) | 70 - 100 mg/dL | | | + + + + + + | BUN | 44 (A) | 6 - 23 mg/dL | | | + + + + + + | Creatinine | 3.01 (A) | 0.70 - 1.18 | | | | | | mg/dL | | | + + + + + + | Estimated | 15.0 (A) | 60.0 - 140.0 | | | | GFR | | mL/min/1.73m2 | | | + + + + + + | BUN/Creatin | 14.6 | 6.0 - 28.6 | | | | ine Ratio | | | | | + + + + + + | Albumin | 3.8 | 3.5 - 5.0 g/dL | | | + + + + + + | Calcium | 9.8 | 8.5 - 10.3 | | | + + + + + + | PHOSPHORUS | 3.4 | 2.5 - 5.0 | | | + + + + + + + + | Specimen | + + | Blood | + + Protein/Creatinine Ratio, Urine (11/01/2019) + + + + + + | Component | Value | Ref Range | Performed | Pathologist | | | | | At | Signature | + + + + + + | Protein/Cre | 6,863.0 (A) | 0 - 150 | | | | at Ratio | | | | | + + + + + + + + | Specimen | + + | Urine | + + Uric Acid (11/01/2019) + +---------+ + + + | Component | Value | Ref Range | Performed | Pathologist | | | | | At | Signature | + +---------+ + + + | Uric Acid | 7.5 (A) | 2.3 - 6.6 | | | + +---------+ + + + + + | Specimen | + + | Blood | + + documented in this encounter Visit Diagnoses Not on filedocumented in this encounter"
--- OUTSIDE RECORDS SUMMARY | ~2020-03-03 | XMS | Encounter Summary ---
Demographics + + + | Address | [address] | | | [place] [address] | + + + | Home Phone | | + + + | Preferred Language | Unknown | + + + | Marital Status | Unknown | + + + | Scientologist Affiliation | Unknown | + + + | Race | White | + + + | Ethnic Group | Unknown | + + + Author + + + | Author | [facility] | | | and [place] | + + + | Organization | [facility] | | | [...] Team Providers + +------+ + | Care Lamination Machine Operator Name | Role | Phone | + +------+ + PCP | Unavailable | + +------+ + Encounter Details +--------+ + + + + | Date | Type | Department | Care Team | Description | +--------+ + + + + | 10/28/ | Hospital | [facility] GENER[facility] OP | Ann Stack | | | 2011 | Encounter | CONVERSION | MD Jammie [address] | | | | | [address]PART[address] | [address] | [address] | [place] [address] | | | | | [place], [place] | [phone] | | | | | [address] | | | | | | [phone] | | | +--------+ + + + [...] | | | | | [place] [address] | | | | | | [phone] | | | | | | | | +--------+---------+ + + + | 03/13/ | Office | Sleep Medicine | Dann Schmid MD | | | 2019 | Visit | | [address] | | | | | | [place] | | | | | | [address] | | | | | | | | +--------+---------+ + + + documented as of this encounter Visit Diagnoses Not on filedocumented in this encounter"
--- OUTSIDE RECORDS SUMMARY | ~2020-03-03 | XMS | Encounter Summary ---
Demographics + + + | Address | [address] | | | [place] [address] | + + + | Home Phone | | + + + | Preferred Language | Unknown | + + + | Marital Status | Unknown | + + + | Congregation Affiliation | Unknown | + + + | Race | White | + + + | Ethnic Group | Unknown | + + + Author + + + | Author | [facility] | | | and [place] | + + + | Organization | [facility] | | | [...] Team Providers + +------+ + | Care Measurement Operator Name | Role | Phone | + +------+ + PCP | Unavailable | + +------+ + Encounter Details +--------+ + + + + | Date | Type | Department | Care Team | Description | +--------+ + + + + | 06/19/ | Hospital | [facility] GENER[facility] OP | Blanca Almaraz | | | 2006 | Encounter | CONVERSION | Krystal MALDONADO | | | | | [address]PART[address] | | | [address] | | | | | | [place], [place] | | | | | | [address] | | | | | | [phone] | | | +--------+ + + + [...] | | | | | [place] [address] | | | | | | [phone] | | | | | | | [...]
--- OUTSIDE RECORDS SUMMARY | ~2020-03-03 | XMS | Encounter Summary ---
Demographics + + + | Address | [address] | | | [place] [address] | + + + | Home Phone | | + + + | Preferred Language | Unknown | + + + | Marital Status | Unknown | + + + | Congregation Affiliation | Unknown | + + + | Race | White | + + + | Ethnic Group | Unknown | + + + Author + + + | Author | [facility] | | | and [place] | + + + | Organization | [facility] | | | and [...] Team Providers + +------+ + | Care Plasterer Journeyman Name | Role | Phone | + +------+ + PCP | Unavailable | + +------+ + Encounter Details +--------+ + + + + | Date | Type | Department | Care Team | Description | +--------+ + + + + | 07/27/ | Hospital | [facility] | Yon Jc MD | | | 2011 | Encounter | [facility] | | | | | | [address] | | | | | | [address] [place] | | | | | | [address] | | | | | | [phone] | | | +--------+ + + + [...] | | | | | [place] [address] | | | | | | [phone] | | | | | | | [...]
--- OUTSIDE RECORDS SUMMARY | ~2020-03-03 | XMS | Clinical Summary ---
Demographics + + + | Address | [address] | | | [place] [address] | + + + | Home Phone | | + + + | Preferred Language | Unknown | + + + | Marital Status | Unknown | + + + | Anabaptism Affiliation | Unknown | + + + | Race | White | + + + | Ethnic Group | Unknown | + + + Author + + + | Author | [facility] | | | and [place] | + + + | Organization | [facility] | | | [...] Team Providers + +------+ + | Care Wringer Operator Name | Role | Phone | [...] + +---------+------+------+-------+ | furosemide (LASIX) | Take 20 mg by mouth | | 0 | 04/1 | | Activ | | 40 mg tablet | Daily . | | | /20 | | e | | | | [...] | | | | | | | [id number]= 2 | | | | | | | | -032= 3 | | | | | | | | [id number]= 4 | | | | | | [...] tablet by | 90 | 3 | 06/ | | Activ | | (PACERONE) 200 mg | mouth Daily. | tablet | | 02/12 | | e | | tablet | | | | 20 | | | + + + +---------+------+------+-------+ | potassium chloride | Take 10 mEq by mouth | | 0 | | | Activ | | (KLOR-CON) 10 MEQ | 2 times daily. | | | | | e | | ER tablet | | | | | | | + + + +---------+------+------+-------+ | pramipexole | Take 0.125 mg by | | 0 | | | Activ | | (MIRAPEX) 0.125 MG | mouth Daily. | | | | | e | | tablet | | | | | | | + + + +---------+------+------+-------+ Active Problems [...] | +--------+ + + + + | 03/02/ | Abstract | Cardiology | Graham Black | | | 2019 | | | MD Anup | | +--------+ + + + + | 03/01/ | Telephone | Cardiology | Graham Black | Other | 2019 | | | MD Anup | | +--------+ + + + + | 01/24/ | Documentati | Nephrology | Art | [facility] ( renal | | 2019 | on | | Naomi Seo | complete report | | | | | [facility] [employer] [facility] [employer] | 01/24/20) | +--------+ + + + + | 01/04/ | Documentati | Nephrology | Art | Results (01/04/20) | | 2019 | on | | Naomi Seo | | | | | | [facility] [employer] | | +--------+ + + + + | 01/03/ | Documentati | Nephrology | Art | [facility] ( order sent | | 2019 | on | | Naomi Seo | to [facility] | | | | | [facility] | confirmation | | | | | | received 01/03/20) | +--------+ + + + + | 12/08/ | Telephone | Cardiology | Denia Nicole | Other (plan of care) | | 2020 | | | [facility] | | +--------+ + + + + | 12/06/ | Office | Cardiology | Denia Nicole | Atrial fibrillation | | 2020 | Visit | | [facility] | with RVR (HCC) | | | | | | (Primary Dx); | | | | | | Essential | | | | | | hypertension; Acute | | | | | | heart failure with | | | | | | preserved ejection | | | | | | fraction (HCC); [facility] | | | | | | (obstructive sleep | | | | | | apnea) | +--------+ + + + + from [...] | | TRIVALENT(PED/ADOL/A | | | | DULT)KARYKT | | | + + + + [...] + + + | Blood Pressure | 128/70 | 12/07/2019 1:29 PM | | | | | PDT | | + + + + + | Pulse | 69 | 12/07/2019 1:29 PM | | | | | PDT | | + + + + + | Temperature | 36.4 C (97.6 F) | 11/02/2019 3:39 PM | | | | | PDT | | + + + + + | Respiratory Rate | 12 | 12/07/2019 1:29 PM | | | | | PDT | | + + + + + | Oxygen Saturation | 99% | 11/02/2019 3:41 PM | | | | | PDT | | + + + + + | Inhaled Oxygen | - | - | | | Concentration | | | | + + + + + | Weight | 83.9 kg (185 lb) | 12/07/2019 1:29 PM | | | | | PDT | | + + + + + | Height | 167.6 cm (5' 6") | 12/07/2019 1:29 PM | | | | | PDT | | + + + + + | Body Mass Index | 29.86 | 12/07/2019 1:29 PM | | | | | PDT | | + + + + + Plan of Treatment +--------+---------+ + + + | Date | Type | Specialty | Care Team | Description | +--------+---------+ + + + | 03/08/ | Office | Cardiology | Denia Nicole | | | 2019 | Visit | | [facility] | | | | | | [address] [place] | | | | | | [place] [address] | | | | | | [phone] | | | | | | | | +--------+---------+ + + + | 03/13/ | Office | Sleep Medicine | Dann Schmid MD | | | 2020 | Visit | | [address] | | | | | | [place] | | | | | | [id number] | | | | | | | | +--------+---------+ + + + + + + + + | Health Maintenance | Due Date | Last | Comments | | | | Done | | + + + + + | Hepatitis C | | | | | Screening | 0 | | | + + + + + | Medication | | | | | Management | 0 | | | + + [...] | + + + + + | Med Mgmt: HBA1C | | 04/29/20 | | | | 0 | 19 | | + + + + + | Vaccine: Influenza | | 01/30/20 | | | (#1) | 0 | 19, | | | | | 03/10/20 | | | | | 18, | | | | | 03/04/20 | | | | | 17, | | | | | Addition | | | | | al | | | | | history | | | | | exists | | + + + + + | Med Mgmt: ALT | | 04/29/20 | | | | 0 | 19, | | | | | 01/30/20 | | | | | 19 | | + + + + + | Med Mgmt: AST | | 04/29/20 | | | | 0 | 19, | | | | | 01/30/20 | | | | | 19 | | + + + + + | Med Mgmt: TSH | | 10/06/19 | | | | 1 | 20, | | | | | 01/30/20 | | | | | 19 | | + + + + + | Med Mgmt: ECG | | 12/07/19 | | | | 1 | 20, | | | | | 11/02/19 | | | | | 20, | | | | | 10/13/19 | | | | | 20, | | | | | Addition | | | | | al | | | | | history | | | | | exists | | + + + + + | Med Mgmt: Cr | | 01/04/20 | | | | 1 | 20, | | | | | 11/01/19 | | | | | 20, | | | | | 10/07/19 | | | | | 20, | | | | | Addition | | | | | al | | | | | history | | | | | exists | | + + + + + | Med Mgmt: K | | 01/04/20 | | | | 1 | 20, | | | | | 11/01/19 | | | | | 20, | | | | | 10/07/19 | | | | | 20, | | | | | Addition | | | | | al | | | | | history | | | | | exists | | + + + + + | Med Mgmt: Na | | 01/04/20 | | | | 1 | 20, | | | | | 11/01/19 | | | | | 20, | | | | | 10/07/19 | | | | | 20, | | | | | Addition | | | | | al | | | | | history | | | | | exists | | + + + + + | Med Mgmt: eGFR | | 01/04/20 | | | | 1 | 20, | | | | | 11/01/19 | | | | | 20, | | | | | 10/07/19 | | | | | 20, | | | | | Addition | [...] + +--------+ + + + | CBC W/AUTO | Routin | 03/02/2020 | | Results for this | | DIFFERENTIAL | e | | | procedure are in the | | | | | | results section. | + +--------+ + + + | EXTERNAL LAB: PTT | Routin | 03/02/2020 | | Results for this | | | e | | | procedure are in the | | | | | | results section. | + +--------+ + + + | EXTERNAL LAB: BUN | Routin | 03/02/2020 | | Results for this | | | e | | | procedure are in the | | | | | | results section. | + +--------+ + + + | EXTERNAL LAB: | Routin | 03/02/2020 | | Results for this | | GLUCOSE | e | | | procedure are in the | | | | | | results section. | + +--------+ + + + | EXTERNAL LAB: | Routin | 03/02/2020 | | Results for this | | CALCIUM | e | | | procedure are in the | | | | | | results section. | + +--------+ + + + | EXTERNAL LAB: CARBON | Routin | 03/02/2020 | | Results for this | | DIOXIDE | e | | | procedure are in the | | | | | | results section. | + +--------+ + + + | EXTERNAL LAB: | Routin | 03/02/2020 | | Results for this | | CHLORIDE | e | | | procedure are in the | | | | | | results section. | + +--------+ + + + | EXTERNAL LAB: | Routin | 03/02/2020 | | Results for this | | POTASSIUM | e | | | procedure are in the | | | | | | results section. | + +--------+ + + + | EXTERNAL LAB: SODIUM | Routin | 03/02/2020 | | Results for this | | | e | | | procedure are in the | | | | | | results section. | + +--------+ + + + | EXTERNAL LAB: CBC | Routin | 03/02/2020 | | Results for this | | | e | | | procedure are in the | | | | | | results section. | + +--------+ + + + | EXTERNAL LAB: | Routin | 03/02/2020 | | Results for this | | PROTIME INR | e | | | procedure are in the | | | | | | results section. | + +--------+ + + + | EXTERNAL LAB: EGFR | Routin | 03/02/2020 | | Results for this | | | e | | | procedure are in the | | | | | | results section. | + +--------+ + + + | EXTERNAL LAB: | Routin | 03/02/2020 | | Results for this | | CREATININE | e | | | procedure are in the | | | | | | results section. | + +--------+ + + + | IMAGING REPORT - | | 01/24/2020 | | Results for this | | EXTERNAL SCAN | | 12:00 AM | | procedure are in the | | | | PDT | | results section. | + +--------+ + + + | LABS - EXTERNAL SCAN | | 01/04/2020 | | Results for this [...] | ECG 12 LEAD | Routin | 12/07/2019 | Atrial | Results for this | | | e | 1:36 PM | fibrillation with | procedure are in the | | | | PDT | RVR ([facility]) Essential | results section. | | | | | hypertension Acute | | | | | | heart failure with | | | | | | preserved ejection | | | | | | fraction ([facility]) | | + +--------+ + + + from Last 3 Months Results External Lab: PTT (03/02/2020) + + + + + + | Component | Value | Ref Range | Performed | Pathologist | | | | | At | Signature | + + + + + + | PTT, | 17.4 (A) | 12.2 - 14.4 | | | | External | | | | | + + + + + + + + | Resulting Agency Comment | + + | [facility] | + + External Lab: BUN (03/02/2020) + +--------+ + + + | Component | Value | Ref Range | Performed | Pathologist | | | | | At | Signature | + +--------+ + + + | BUN, | 30 (A) | 8 - 23 | | | | External | | | | | + +--------+ + + + + + | Resulting Agency Comment | + + | [facility] | + + External Lab: Glucose (03/02/2020) + +---------+ + + + | Component | Value | Ref Range | Performed | Pathologist | | | | | At | Signature | + +---------+ + + + | Glucose, | 210 (A) | 70 - 100 | | | | External | | | | | + +---------+ + + + + + | Resulting Agency Comment | + + | [facility] | + + External Lab: Calcium (03/02/2020) + +-------+ + + + | Component | Value | Ref Range | Performed | Pathologist | | | | | At | Signature | + +-------+ + + + | Calcium, | 9.6 | 8.5 - 10.3 | | | | External | | | | | + +-------+ + + + + + | Resulting Agency Comment | + + | [facility] | + + External Lab: Carbon Dioxide (03/02/2020) + +-------+ + + + | Component | Value | Ref Range | Performed | Pathologist | | | | | At | Signature | + +-------+ + + + | Carbon | 27 | 19 - 31 | | | | Dioxide, | | | | | | External | | | | | + +-------+ + + + + + | Resulting Agency Comment | + + | [facility] | + + External Lab: Chloride (03/02/2020) + +-------+ + + + | Component | Value | Ref Range | Performed | Pathologist | | | | | At | Signature | + +-------+ + + + | Chloride, | 108 | 95 - 112 | | | | External | | | | | + +-------+ + + + + + | Resulting Agency Comment | + + | [facility] | + + External Lab: Potassium (03/02/2020) + +-------+ + + + | Component | Value | Ref Range | Performed | Pathologist | | | | | At | Signature | + +-------+ + + + | Potassium, | 3.7 | 3.6 - 5.1 | | | | External | | | | | + +-------+ + + + + + | Resulting Agency Comment | + + | [facility] | + + External Lab: Sodium (03/02/2020) + +-------+ + + + | Component | Value | Ref Range | Performed | Pathologist | | | | | At | Signature | + +-------+ + + + | Sodium, | 140 | 132 - 143 | | | | External | | | | | + +-------+ + + + + + | Resulting Agency Comment | + + | [facility] | + + External Lab: CBC (03/02/2020) + + + + + + | Component | Value | Ref Range | Performed | Pathologist | | | | | At | Signature | + + + + + + | WBC, | 5.4 | 4.5 - 11 | | | | External | | | | | + + + + + + | HGB, | 11.1 (A) | 12 - 16 | | | | External | | | | | + + + + + + | HCT, | 32.2 (A) | 38 - 48 | | | | External | | | | | + + + + + + | PLT, | 298 | 140 - 440 | | | | External | | | | | + + + + + + | Neutrophils | 64.3 | 39 - 80 | | | | %, | | | | | | External | | | | | + + + + + + | Lymphocytes | 24.9 | 24 - 44 | | | | %, | | | | | | External | | | | | + + + + + + | Monocytes | 7.0 | 0 - 12 | | | | %, External | | | | | + + + + + + | Eosinophils | 2.8 | 0 - 6 | | | | %, | | | | | | External | | | | | + + + + + + | RBC, | 3.91 | 3.8 - 5.1 | | | | External | | | | | + + + + + + | MCV, | 82 | 81 - 99 | | | | External | | | | | + + + + + + | RDW, | 16.5 (A) | 10.5 - 16 | | | | External | | | | | + + + + + + + + | Resulting Agency Comment | + + | [facility] | + + External Lab: Hussain RODRIGUEZ (03/02/2020) + +---------+ + + + | Component | Value | Ref Range | Performed | Pathologist | | | | | At | Signature | + +---------+ + + + | PT, | 1.4 (A) | 0 - 1 | | | | External | | | | | + +---------+ + + + + + | Specimen | + + | Blood | + + + + | Resulting Agency Comment | + + | [facility] | + + External Lab: eGFR (03/02/2020) + +--------+ + + + | Component | Value | Ref Range | Performed | Pathologist | | | | | At | Signature | + +--------+ + + + | eGFR, | 25 (A) | 60 - 9,999 | | | | External | | | | | + +--------+ + + + + + | Specimen | + + | Blood | + + + + | Resulting Agency Comment | + + | [facility] | + + External Lab: Creatinine (03/02/2020) + + + + + + | Component | Value | Ref Range | Performed | Pathologist | | | | | At | Signature | + + + + + + | Creatinine, | 1.89 (A) | 0.7 - 1.18 | | | | External | | | | | + + + + + + + + | Specimen | + + | Blood | + + + + | Resulting Agency Comment | + + | [facility] | + + CBC w/ Auto Differential (03/02/2020) + +-------+ + + + | Component | Value | Ref Range | Performed | Pathologist | | | | | At | Signature | + +-------+ + + + | Anion Gap | 9 | 7 - 21 mmol/L | | | + +-------+ + + + | Bun/Creatin | 15.9 | 6.0 - 28.6 | | | | ine | | | | | + +-------+ + + + | MCH | 28 | 27 - 33 | | | + +-------+ + + + | MCHC | 34.0 | 30.0 - 36.0 | | | | | | g/dL | | | + +-------+ + + + + + | Specimen | + + | Blood | + + IMAGING REPORT - EXTERNAL SCAN (01/24/2020 12:00 AM PDT) + + + | Narrative | Performed At | + + + | Ordered by an | | | unspecified provider. | | + + + External Lab: PTH, Intact (01/04/2020) + +-------+ [...] | + + | | + + LABS - EXTERNAL SCAN (01/04/2020 12:00 AM PDT) + + + | Narrative | Performed At | + + + | Ordered by an | | | unspecified provider. | | + + + CBC with Manual Differential (01/04/2020) [...] + | Urine | + + Urinalysis (01/04/2020) + + [...] | 1.013 | | | | | Protection, | | | | | | Urine [...] + | Blood | + + ECG 12 lead (12/07/2019 1:36 PM PDT) + + + + + + | Component | Value | Ref Range | Performed | Pathologist | | | | | At | Signature | + + + + + + | VENTRICULAR | 69 | BPM | [facility] | | | RATE EKG | | | | | + + + + + + | ATRIAL RATE | 69 | BPM | [facility] | | + + + + + + | P-R | 170 | ms | [facility] | | | INTERVAL | | | | | + + + + + + | QRS | 92 | ms | [facility] | | | DURATION | | | | | + + + + + + | Q-T | 418 | ms | [facility] | | | INTERVAL | | | | | + + + + + + | Q-T | 447 | ms | [facility] | | | INTERVAL | | | | | | (CORRECTED) | | | | | + + + + + + | P WAVE AXIS | 68 | degrees | [facility] | | + + + + + + | QRS AXIS | 108 | degrees | [facility] | | + + + + + + | T AXIS | -3 | degrees | [facility] | | + + + + + + | INTERPRETAT | Normal sinus | | [facility] | | | ION TEXT | rhythmRightward | | | | | | axisIncomplete right | | | | | | bundle branch | | | | | | blockCannot rule out | | | | | | Inferior infarct , age | | | | | | undeterminedAbnormal | | | | | | ECGWhen compared with | | | | | | ECG of 02-NOV-2019 | | | | | | 14:20,Minimal criteria | | | | | | for Inferior infarct are | | | | | | now presentConfirmed by | | | | | | TOVA WEBB, CASANDRA | | | | | | ([id number]) on 12/09/2019 | | | | | | 10:22:05 AM | | | | + + [...] +---------+--------+ | [employer] | [place] | [id number] | 08/02/19 | | | Indemn | | | COMMUN | | 20-Pre | | | ity | | | ITY | | sent | | | | | | CARE | | | | | | + +--------+ +--------+ +---------+--------+ | [employer] | [facility] | [id number] | 08/02/19 | | | Indemn | | | NS | | 20-Pre | | | ity | | | ADMIN | | sent | | | | | | [place] | | | | | | | | [place] | | | | | | + +--------+ +--------+ +---------+--------+ | [employer] | [facility] | [id number] | | | | Indemn | | | NS | | 006-Pr | | | ity | | | ADMIN | | esent | | | | | | [place] | | | | | | | | [place] | | | | | | + +--------+ +--------+ +---------+--------+ | [employer] | [place] | [id number] | | | | Indemn | | | COMMUN | | 016-Pr | | | ity | | | ITY | | esent | | | | | | CARE | | | | | | + +--------+ +--------+ +---------+--------+ | MEDICARE | MEDICA | [id number] | | [phone] | | Medica | [...] [address] | | [place] | al/Fam | | 1951 | [phone] | [address] [place], [place] | | | [place] | | | [address] (Home) | [address] | + +--------+ +--------+ + + | Lizet Mcneil | Person | Self | [address] | | [address] | | [place] | al/Fam | | 1951 | [phone] | [address] [place], [place] | | | [place] | | | [address] (Home) | [address] | + +--------+ +--------+ + + Advance Directives + + + + + | Type | Date Recorded | Patient | Explanation | | | | Construction Rep | | + + + + + | Power of | | | | | Manager Leadership Development | | | | + + + [...]
--- OUTSIDE RECORDS SUMMARY | ~2020-03-03 | XMS | Encounter Summary ---
Demographics + + + | Address | [address] | | | [place] [address] | + + + | Home Phone | | + + + | Preferred Language | Unknown | + + + | Marital Status | Unknown | + + + | Islam Affiliation | Unknown | + + + | Race | White | + + + | Ethnic Group | Unknown | + + + Author + + + | Author | [facility] | | | and [place] | + + + | Organization | [facility] | | | [...] Team Providers + +------+ + | Care Electrical Maintenance Technician Name | Role | Phone | + +------+ + PCP | Unavailable | + +------+ + Encounter Details +--------+ + + + + | Date | Type | Department | Care Team | Description | +--------+ + + + + | 02/19/ | Hospital | [facility] GENERIC OP | Blanca Almaraz | | | 2006 | Encounter | CONVERSION | Krystal MALDONADO | | | | | [address]PARTMENT [address] | | [address] | | | | | | [place], [place] | | | | | | [address] | | | | | | [phone] | | | +--------+ + + + [...] | | | | | [place] [address] | | | | | | [phone] | | | | | | | [...]
--- OUTSIDE RECORDS SUMMARY | ~2020-03-03 | XMS | Encounter Summary ---
Demographics + + + | Address | [address] | | | [place] [address] | + + + | Home Phone [...] + | Author | [facility] | | | and [place] | + + + | Organization | [facility] | | | and [...] Team Providers + +------+ + | Care Standpipe Tender Name | Role | Phone | + +------+ + | Lizet Oliva | PCP | | + +------+ + Encounter Details +--------+ + + + + | Date | Type | Department | Care Team | Description | +--------+ + + + + | 08/02/ | Orders Only | [facility] | Matty Bingham MD | Essential | | 2020 | | NEPHROLOGY [place] | [address] | hypertension | | | | [address] | [address] [place], [place] | (Primary Dx); CKD | | | | [address] | [address] | (chronic kidney | | | | [place], [place] | | disease) stage 4, | | | | [address] | | GFR 15-29 ml/min | | | | [phone] | | ([facility]); Nephrotic | | | | | | [...] | | | | | [place] [address] | | | | | | [phone] | | | | | | | | +--------+---------+ + + + | 03/13/ | Office | Sleep Medicine | Dann Schmid MD | | | 2020 | Visit | | [address] | | | | | | [place] | | | | | | [address] | | | | | | | [...] | | | | | ([facility]) Nephrotic | | | | | | [...] | | | | | ([facility]) Nephrotic | | | | | | [...]
--- OUTSIDE RECORDS SUMMARY | ~2020-03-03 | XMS | Encounter Summary ---
Demographics + + + | Address | [address] | | | [place] [address] | + + + | Home Phone [...] + + + | Author | [facility] | | | and [place] | + + + | Organization | [facility] | | | and [...] Team Providers + +------+ + | Care Mold Cooler Name | Role | Phone | + +------+ + PCP | Unavailable | + +------+ + Encounter Details +--------+ + + + + | Date | Type | Department | Care Team | Description | +--------+ + + + + | 11/28/ | Hospital | [facility] GENERIC OP | Maximilian Benoit | | | 2008 | Encounter | CONVERSION | MD [address]anie [address] | | | | [address] | [address] | | | [address] | [facility] [address] | | | | | [place], [place] | [phone] | | | | | [address] | | | | | | [phone] | | | +--------+ + + + [...] | | | | | [place] [address] | | | | | | [phone] | | | | | | | | +--------+---------+ + + + | 03/13/ | Office | Sleep Medicine | Dann Schmid MD | | | 2019 | Visit | | [address] | | | | | | [place] | | | | | | [address] | | | | | | | | +--------+---------+ + + + documented as of this encounter Visit Diagnoses Not on filedocumented in this encounter"
--- OUTSIDE RECORDS SUMMARY | ~2020-03-03 | XMS | Encounter Summary ---
Demographics + + + | Address | [address] | | | [place] [address] | + + + | Home Phone | | + + + | Preferred Language | Unknown | + + + | Marital Status | Unknown | + + + | Adventist Affiliation | Unknown | + + + | Race | White | + + + | Ethnic Group | Unknown | + + + Author + + + | Author | [facility] | | | and [place] | + + + | Organization | [facility] | | | [...] Team Providers + +------+ + | Care Bakery Clerk Name | Role | Phone | [...] + + | 12/08/ | Telephone | [facility] | Denia Nicole | Other (plan of care) | | 2019 | | CARDIOLOGY [address] | | | | [place], | [address] [place] | | | | | [place] [address] | [place] [address] | | | | | [phone] | [phone] | | | | | | | [...] 10:44 AM PDTSpoke with Amir[facility] at [facility], phone [phone]; fax [phone]. She is informed of the instructions. She states that the facility physician can manage the warfarin. She is advised that protocol for warfarin is 5mg by mouth one time daily to be adjusted by PT/INR to be in a range of 2.0-3. 0, diagnosis of Afib. Copy of this note along with office note from 12-07-19 by Denia Nicole PA-C faxed to [facility] at [phone], Sent by routing in [facility] to Dr Bingham. ......... ..................................Betzaida Arenas RN, on 12/10/19 at 10:46 AM PDT elephone Encounter - Betzaida Arenas RN - 12/10/2019 10:36 AM PDTSpoke with Lizet, while talking on the phone someone in the background spoke up to let us know that she is actually in a facility and th ey would need the orders. She is at [facility] in [place]. The nurse was not sure of t [...] to start warfarin with monitoring locally in [place]. She is to follow up with [...] | | | | | | [address] | | | | | | [place] [address] | | | | | | [phone] | | | | | | | | +--------+---------+ + + + | 03/13/ | Office | Sleep Medicine | Dann Schmid MD | | | 2019 | Visit | | [address] | | | | | | [place] | | | | | | [id number] | | | | | | | | +--------+---------+ + + + documented as of this encounter Visit Diagnoses Not on filedocumented in this encounter"
--- OUTSIDE RECORDS SUMMARY | ~2020-03-03 | XMS | Encounter Summary ---
Demographics + + + | Address | [address] | | | [place] [address] | + + + | Home Phone | | + + + | Preferred Language | Unknown | + + + | Marital Status | Unknown | + + + | Moravian Affiliation | Unknown | + + + | Race | White | + + + | Ethnic Group | Unknown | + + + Author + + + | Author | [facility] | | | and [place] | + + + | Organization | [facility] | | [...] Providers + +------+ + | Care Patient Care Nursing Assistant Name | Role | Phone | [...] + + | 01/03/ | Documentati | [facility] | Art, | Other (US order sent | | 2020 | on | NEPHROLOGY JUAN | Naomi Seo | to .[employer] imaging | | | | [address] | [employer] | confirmation | | | | [address] [place], [place] | | received 01/03/20) | | | | [address] | | | | | | [phone] | | | +--------+ + + + [...] | | | | | [place] [address] | | | | | | [phone] | | | | | | | | +--------+---------+ + + + | 03/13/ | Office | Sleep Medicine | Dann Schmid MD | | | 2019 | Visit | | [address] | | | | | | [place] | | | | | | [id number] | | | | | | | | +--------+---------+ + + + documented as of this encounter Visit Diagnoses Not on filedocumented in this encounter"
--- OUTSIDE RECORDS SUMMARY | ~2020-03-03 | XMS | Encounter Summary ---
Demographics + + + | Address | [address] | | | [place] [address] | + + + | Home Phone | | + + + | Preferred Language | Unknown | + + + | Marital Status | Unknown | + + + | Christianity Affiliation | Unknown | + + + [...] Team Providers + +------+ + | Care Clerk Operator Name | Role | Phone | + +------+ + | Lizet Oliva | PCP | | + +------+ + Reason for Visit +--------+--------+ + | Reason | Onset | Comments | | | Date | | +--------+--------+ + | Other | 03/01/ | | | | 2020 | | +--------+--------+ + Encounter Details +--------+ + + + + | Date | Type | Department | Care Team | Description | +--------+ + + + + | 03/01/ | Telephone | [facility] [place] | Graham Black | Other | | 2019 | | [address] | MD Anup [address] | | | | | [place], | [address] [place] | | | | | [place] [address] | [place] [address] | | | | | [phone] | [phone] | | | | | | | [...] this encounter Miscellaneous Notes Telephone Encounter - Patricia Britton RN - 03/02/2020 2:03 PM PDTSunildney Function impr frank, per Conversation with Dr Black, patient may be switched to Eliquis 5 mg one twice a d ay. Santos notified ..........................................Patricia Britton RN on 01/12 at 2:[address] [facility] [place] [facility] - Patricia Britton RN - 03/01/2020 12:37 PM PDTDanielle called from [facility] anti coagulation clinic. Patient was on Eliquis and was switched to warfarin in November due to chron ic kidney disease. Patient was in [place], since being discharged a month ago from [facility], [place] has been monitoring her INR. The patient has not been in therapeutic levels even with increasing the warfarin up to 30 percent. Danielle would like to switch back to Eliquis, will be repeating labs. She will fax the labs to our office for Dr Black to review ........ ..................................Patricia Britton RN on 03/01/20 at 1:44 PM PDT documented in thi s encounter Plan of Treatment +--------+---------+ + + + | Date | Type | Specialty | Care Team | Description | +--------+---------+ + + + | 03/08/ | Office | Cardiology | Denia Nicole | | 2019 | Visit | | BECK Barber [address] | | | | | | [address] | | | | | | [place] [address] | | | | | | [phone] | | | | | | | | +--------+---------+ + + + | 03/13/ | Office | Sleep Medicine | Dann Schmid MD | | | 2020 | Visit | | [address] | | | | | | [place] | | | | | | [phone] | | | | | | | | +--------+---------+ + + + documented as of this encounter Visit Diagnoses Not on filedocumented in this encounter"
--- OUTSIDE RECORDS SUMMARY | ~2020-03-03 | XMS | Encounter Summary ---
Demographics + + + | Address | [address] | | | [place] [address] | + + + | Home Phone [...] Team Providers + +------+ + | Care Blade Groover Name | Role | Phone | + +------+ + PCP | Unavailable | + +------+ + Encounter Details +--------+ + + + + | Date | Type | Department | Care Team | Description | +--------+ + + + + | 01/17/ | Hospital | [facility] | Maximilian Benoit | | | 2008 | Encounter | HOSPITAL XRAY [address] | MD [address] | | | | | [address] | [address] | | | | | [place] | [place] [address] | | | | | [address] | [phone] | | | | | [phone] | | | +--------+ + + + [...] | | | | | [place] [address] | | | | | | [phone] | | | | | | | | +--------+---------+ + + + | 03/13/ | Office | Sleep Medicine | Dann Schmid MD | | | 2019 | Visit | | [address] | | | | | | [place] | | | | | | [id number] | | | | | | | | +--------+---------+ + + + documented as of this encounter Visit Diagnoses Not on filedocumented in this encounter"
--- OUTSIDE RECORDS SUMMARY | ~2020-03-03 | XMS | Encounter Summary ---
Demographics + + + | Address | [address] | | | [place] [address] | + + + | Home Phone | | + + + | Preferred Language | Unknown | + + + | Marital Status | Unknown | + + + | Orthodoxy Affiliation | Unknown | + + + | Race | White | + + + | Ethnic Group | Unknown | + + + Author + + + | Author | [facility] | | | and [place] | + + + | Organization | [facility] | | | [...] Team Providers + +------+ + | Care Speeder Machine Operator Name | Role | Phone [...] | | initial | MD Anup | [place], | | | | | encounter | [address] | [place] [address] | | | | | Nonintractab | St [place] | Phone: | | | | | le headache, | [place], [place] | [phone] | | | | | unspecified | [address] | Fax: | | | | | chronicity | Phone: | [phone] | | | | | pattern, | [phone] | | | | | | unspecified | Fax: | | | | | | headache | [phone] | | | | | | type [...] Authorized | | Cardiology | Diagnoses | Oliva, | [facility] | | | | | A-ky ([facility]) | Lizet White, | Cardiology | | | | | Procedures | STEAMER OPERATOR [address] | [address] | | | | | SERVICE AIDE | [place] | [place], | | | | | | [address] | [place] | | | | | | [place] | [address] | | | | | | [address] | Phone: | | | | | | Phone: | [phone] | | | | | | [phone] | Fax: | | | | | | Fax: | [phone] | | | | | | [phone] | | + +--------+ + + + + Encounter Details +--------+---------+ + + + | Date | Type | Department | Care Team | Description | +--------+---------+ + + + | 06/09/ | [facility] | [facility] | Graham Black | Atrial fibrillation | | 2020 | Visit | CARDIOLOGY [address] | MD Anup [address] | with RVR (HCC) | | | | [place], | [address] [place] | (Primary Dx); Acute | | | | [place] [address] | [place] [address] | heart failure with | | | | [phone] | [phone] | preserved ejection | | | | [...] y.o. REFERRED BY: JOEL Lilly PRIMARY CARE: JEOL Salvador CARDIOLOGY OFFICE VISIT Date of Service: [...] kidney disease) stage 4, GFR 15-29 ml/min ([facility]) 07/28/2019 Diabetes mellitus ([facility]) 07/28/2019 Hypertension 07/28/2019 Nicotine dependence 07/28/2019 [...] PLT 241 10/07/2019 I reviewed records from [facility] for hospitalization,including H& P, Discharge Summary [...] [facility] today, [...] and management. I, Graham Black MD, PhD, [facility] personally performed the services described in this documentation. All medical record entries made by the clinical cad application support specialist were at my dir ection. I have reviewed the documentation and discharge instructions (if appropriate), and edited the documentation if necessary. I agree that the record reflects my personal performa nce and is accurate and complete for visit date 11/02/2019. Portions of this report were transcribed using voice recognition software. Every effort wa s made to ensure accuracy; however, inadvertent computerized unishear operator errors may be pre sent. Electronically signed by: Mary Black MD PhD [facility] 11/02/2019 documented in t his encounter Miscellaneous Notes Addendum Note - Betzadia Hodgson RN - 11/02/2019 2:00 PM PDT [...] | | | | | [place] [address] | | | | | | [phone] | | | | | | | | +--------+---------+ + + + | 03/13/ | Office | Sleep Medicine | Dann Schmid MD | | | 2019 | Visit | | [address] | | | | | | [place] | | | | | | [address] | | | | | | | [...] | | | | | | RVR ([facility]) | | + +--------+ + + [...] MD | | | | | | ([id number]) on 11/04/2019 | | | | | [...]
--- OUTSIDE RECORDS SUMMARY | ~2020-03-03 | XMS | Encounter Summary ---
Demographics + + + | Address | [address] | | | [place] [address] | + + + | Home Phone [...] Team Providers + +------+ + | Care Oncology Rep Name | Role | Phone | [...] + + + + + + | Authorized | Specialty | Sleep | Diagnoses | Reynaldo [place] | | | Services | Medicine | Atrial | Denia Barber, | [facility] | | | Required | | fibrillation | PA-C [address] | Disorder [address] | | | | | with RVR | [address] | [address] | | | | | (HCC) [place] | [place], | [place], | | | | | (obstructive | [place] [address] | [place] [address] | | | | | sleep | Phone: | Phone: | | | | | apnea) | [phone] | [phone] | | | | | Procedures | Fax: | Fax: | | | | | 01/11> DOS | [phone] | [phone] | | | | | 02/07> STILL [...] [place] | | | | | A-ky ([facility]) | Lizet White, | Cardiology | | | | | Procedures | SIGN SHOP SUPERVISOR 77 | [address] | | | | | INDUSTRIAL ROOFER | [place] | [place], | | | | | | [address] | [place] | | | | | | [place] | [address] | | | | | | [address] | Phone: | | | | | | Phone: | [phone] | | | | | | [phone] | Fax: | | | | | | Fax: | [phone] | | | | | | [phone] | | + +--------+ + + + + Encounter Details +--------+---------+ + + + | Date | Type | Department | Care Team | Description | +--------+---------+ + + + | 12/06/ | Office | [facility] | Denia Nicole | Atrial fibrillation | | 2020 | Visit | CARDIOLOGY [address] | BECK Barber [address] | with RVR ([facility]) | | | | [place], | [address] [place] | (Primary Dx); | | | | [place] [address] | [place] [address] | Essential | | | | [phone] | [phone] | hypertension; Acute | | | | [...] BY: JOEL Lilly PRIMARY CARE: JOEL Salvador [facility] Nephrology: Dr. Matty Bingham CARDIOLOGY OFFICE VISIT [...] HISTORY Past Medical History: Diagnosis Date A-fib ([facility]) CKD (chronic kidney disease) stage 4, GFR 15-29 ml/min ([facility]) 07/28/2019 Diabetes mellitus ([facility]) 07/28/2019 Hypertension 07/28/2019 Nicotine dependence 07/28/2019 [...] PLT 241 10/07/2019 I reviewed records from [facility] for hospitalization,including H& P, Discharge Summary [...] Female Gender (1), giving her a C [id number] of 4, estimating a 4=4.0% risk of [...] and after discussion with Dr. 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 I recommend a low s odium diet, and elevation of her lower extremities with consideration to compression socks. I have personally discussed her case with Dr. Bingham her automotive machinist apprentice, who has recommended a BMP and follow [...] made to ensure accuracy; however, inadvertent computerized telephone maintainer errors may be pre sent. Electronically signed [...] | | | | | [place] [address] | | | | | | [phone] | | | | | | | | +--------+---------+ + + + | 03/13/ | Office | Sleep Medicine | Dann Schmid MD | | 2019 | Visit | | [address] | | | | | | [place] | | | | | | [address] | | | | | | | [...] | | Referral | | | RVR ([facility]) JUSTIN | | | | | [...] | | | | PDT | RVR ([facility]) Essential | results section. | | | | | hypertension Acute | | | | | | heart failure with | | | | | | preserved ejection | | | | | | fraction ([facility]) | | + +--------+ + + [...] MD | | | | | | ([id number]) on 12/09/2019 | | | | | [...]
--- OUTSIDE RECORDS SUMMARY | ~2020-03-03 | XMS | Encounter Summary ---
Demographics + + + | Address | [address] | | | [place] [address] | + + + | Home Phone [...] Team Providers + +------+ + | Care Tray Line Supervisor Name | Role | Phone | + +------+ + | Sharyn Oliva | PCP | | + +------+ + Encounter Details +--------+ + + + + | Date | Type | Department | Care Team | Description | +--------+ + + + + | 09/09/ | Lab | [facility] | Sharyn Oliva | Age-related | | 2018 | Requisition | [facility] | JOEL White [address] | osteoporosis with | | | | [address] | [place] | current pathological | | | | [place] | [place] | fracture of right | | | | [address] | [address] | forearm | | | | [phone] | [phone] | | | | | | | [...] | | | | | [place] [address] | | | | | | [phone] | | | | | | | [...] Quantitativ | under wrong submitter. | | . SHARYN | | | e | This [...] wrong submitter | [facility] | | | STH[facility]iley [facility] | | | [facility] | | | - LABORATORY | + + + + + + + + | Performing | Address | City/State/Zipcode | Phone Number | | Organization | | | | + + + + + | [facility] | [address] | [place] | [phone] | | [facility] | | [address] | | | - LABORATORY | | | | + + + + + documented in this encounter Visit Diagnoses + + | Diagnosis | + + | Age-related osteoporosis with current pathological fracture of right forearm Senile | | osteoporosis | + + documented in this encounter"
--- OUTSIDE RECORDS SUMMARY | ~2020-03-03 | XMS | Encounter Summary ---
Demographics + + + | Address | [address] | | | [place] [address] | + + + | Home Phone | | + + + | Preferred Language | Unknown | + + + | Marital Status | Unknown | + + + | Hindu Affiliation | Unknown | + + + | Race | White | + + + | Ethnic Group | Unknown | + + + Author + + + | Author | [facility] | | | and [place] | + + + | Organization | [facility] | | [...] Team Providers + +------+ + | Care Street Photographer Name | Role | Phone | + +------+ + PCP | Unavailable | + +------+ + Encounter Details +--------+ + + + + | Date | Type | Department | Care Team | Description | +--------+ + + + + | 04/28/ | Hospital | [facility] | Niharika Hsieh | | | 2006 | Encounter | HOSPITAL EMERGENCY | MD [address] | | | | | [address] [place], | | | | | [address] [place], [place] | [place] [address] | | | | | [address] | [phone] | | | | | [phone] | | | +--------+ + + + [...] | | | | | [place] [address] | | | | | | [phone] | | | | | | | [...]
--- OUTSIDE RECORDS SUMMARY | ~2020-03-03 | XMS | Encounter Summary ---
Demographics + + + | Address | [address] | | | [place] [address] | + + + | Home Phone [...] Team Providers + +------+ + | Care Freelance Copywriter Name | Role | Phone | + [...] [address] | | | | | | [place], [place] | (Fax) | | | | | [address] | | | | | | [phone] | | | +--------+ + + + [...] | | | | | [place] [address] | | | | | | [phone] | | | | | | | [...]
--- OUTSIDE RECORDS SUMMARY | ~2020-03-03 | XMS | Encounter Summary ---
Demographics + + + | Address | [address] | | | [place] [address] | + + + | Home Phone [...] Team Providers + +------+ + | Care Sole Sewer Hand Name | Role | Phone | [...] | Encounter | CONVERSION | MD Bethanie [address] | | | | | [address] | [address] | | | | | [address] | [place] [address] [facility] [address] | | | | | [place], [place] | [phone] | | | | | [address] | | | | | | [phone] | | | +--------+ + + + [...] | | | | | [place] [address] | | | | | | [phone] | | | | | | | | +--------+---------+ + + + | 03/13/ | Office | Sleep Medicine | Dann Schmid MD | | | 2019 | Visit | | [address] | | | | | | [place] | | | | | | [address] | | | | | | | | +--------+---------+ + + + documented as of this encounter Visit Diagnoses Not on filedocumented in this encounter"
--- OUTSIDE RECORDS SUMMARY | ~2020-03-03 | XMS | Encounter Summary ---
Demographics + + + | Address | [address] | | | [place] [address] | + + + | Home Phone | | + + + | Preferred Language | Unknown | + + + | Marital Status | Unknown | + + + | Restorationist Affiliation | Unknown | + + + | Race | White | + + + | Ethnic Group | Unknown | + + + Author + + + | Author | [facility] | | | and [place] | + + + | Organization | [facility] | | [...] Team Providers + +------+ + | Care Assistant Superintendent Name | Role | Phone | + +------+ + | Benny James MD | PCP | | + +------+ + Encounter Details +--------+ + + + + | Date | Type | Department | Care Team | Description | +--------+ + + + + | 07/23/ | Orders Only | [facility] | Matty Bingham MD | Chronic kidney | | 2020 | | NEPHROLOGY [place] | [address] | disease, stage IV | | | | [address] | [address] [place], [place] | (severe) (HCC) | | | | [address] [place], [place] | [address] | (Primary Dx) | | | | [address] | | | | | | [phone] | | | +--------+ + + + [...] | | | | | [place] [address] | | | | | | [phone] | | | | | | | | +--------+---------+ + + + | 03/13/ | Office | Sleep Medicine | Dann Schmid MD | | | 2020 | Visit | | [address] | | | | | | [place] | | | | | | [address] | | | | | | | [...]
--- OUTSIDE RECORDS SUMMARY | ~2020-03-03 | XMS | Encounter Summary ---
Demographics + + + | Address | [address] | | | [place] [address] | + + + | Home Phone [...] Providers + +------+ + | Care Personal Service Representative Name | Role | Phone | + [...] + + | 08/03/ | Telephone | [facility] | Matty Bingham MD | Other (RBC ua | | 2020 | | NEPHROLOGY SCOOTER | [address] | result) | | | | [address] | [address] [place], [place] | | | | | [address] | [address] | | | | | [place] | | | | | | [address] | | | | | | [phone] | | | +--------+ + + + [...] Miscellaneous Notes Telephone Encounter - Gabbi Cordova Sewer Pipe Press Operator - 08/04/2019 5:39 [address] reports that there were 30 rbc in patients urinalysis will inform Otilia of this. Lab wi ll be faxing new report.Electronically signed by Naomi Beyer at 5:56 PM PDTTelephone Encounter - Gabbi Cordova Medical Assistant - 08/04/19 20 5:39 PM PDT----- Message from Teressa Loza sent at 07/29/2019 8:42 AM PST ----- Regarding: Benjamin ammaggi lab Provider: Otilia Velasco Client Services called states they needed to give a verbal on a amended Urine tiny t results. Please call them back at [phone], you may speak to any of the client services specialis t to get the updated information. Next OV: [facility] SUPERVISOR WIRE ROPE FABRICATION Consult do cumented in this encounter Plan [...] | | | | | [place] [address] | | | | | | [phone] | | | | | | | | +--------+---------+ + + + | 03/13/ | Office | Sleep Medicine | Dann Schmid MD | | | 2019 | Visit | | [address] | | | | | | [place] | | | | | | [address] | | | | | | | | +--------+---------+ + + + documented as of this encounter Visit Diagnoses Not on filedocumented in this encounter"
--- OUTSIDE RECORDS SUMMARY | ~2020-03-03 | XMS | Encounter Summary ---
Demographics + + + | Address | [address] | | | [place] [address] | + + + | Home Phone | | + + + | Preferred Language | Unknown | + + + | Marital Status | Unknown | + + + | Mormonism Affiliation | Unknown | + + + [...] Team Providers + +------+ + | Care Furnace Mechanic Name | Role | Phone | [...] | | | [address] [place] | [place] [address] | | | | | [place] [address] | | | | | | [phone] | | | +--------+ + + + [...] | | | | | [place] [address] | | | | | | [phone] | | | | | | | | +--------+---------+ + + + | 03/13/ | Office | Sleep Medicine | Dann Schmid MD | | | 2019 | Visit | | [address] | | | | | | [place] | | | | | | [address] | | | | | | | [...] documented in this encounter Results ANGIE Tolentino 1 - 2 Vw (11/13/2019 12:05 AM [...]
--- OUTSIDE RECORDS SUMMARY | ~2020-03-03 | XMS | Encounter Summary ---
Demographics + + + | Address | [address] | | | [place] [address] | + + + | Home Phone [...] Team Providers + +------+ + | Care Supervisor Cigarette Making Department Name | Role | Phone | + [...] | | | | | (HCC) | [place] | [address] | | | | | | [address] | Phone: | | | | | | Phone: | [phone] | | | | | | [phone] | Fax: | | | | | | Fax: | [phone] | | | | | | [phone] | | + +--------+ + + + + Encounter Details +--------+---------+ + + + | Date | Type | Department | Care Team | Description | +--------+---------+ + + + | 08/01/ | Office | [facility] | Matty Bingham MD | CKD (chronic kidney | | 2020 | Visit | NEPHROLOGY SCOOTER | [address] | disease) stage 4, | | | | [address] | [address] [place], [place] | GFR 15-29 ml/min | | | | [address] | [address] | (HCC) (Primary Dx); | | | | [place] | | 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 She [...] intact PTH, uric acid, urinalysis, Urine total coueuan-ne-ogvx tinine ratio before she comes back in [...] stage 4, GFR 15-29 ml/min ([facility]) 07/28/2019 Diabetes mellitus ([facility]) 07/28/2019 Hypertension 07/28/2019 Nicotine dependence 07/28/2019 [...] file Gets together: Not on file Attends protestant service: Not on file Active member of [...] CKD on a background of long s dante diabetes & hypertension. The most likely pathology [...] intact PTH, uric acid, urinalysis, Urine total cjomggh-hc-wivn tinine ratio before she comes back in [...] | | | | | [address] [facility] | | | | | | [place] [address] | | | | | | [phone] | | | | | | | | +--------+---------+ + + + | 03/13/ | Office | Sleep Medicine | Dann Schmid MD | | | 2019 | Visit | | [address] | | | | | | [place] | | | | | | [address] | | | | | | | | +--------+---------+ + + + documented as of this encounter Visit Diagnoses + + | Diagnosis | + + | CKD (chronic kidney disease) stage 4, GFR 15-29 ml/min ([facility]) - Primary Chronic kidney | | [...]
--- OUTSIDE RECORDS SUMMARY | ~2020-03-03 | XMS | Encounter Summary ---
Demographics + + + | Address | [address] | | | [place] [address] | + + + | Home Phone [...] Team Providers + +------+ + | Care Revenue Collector Name | Role | Phone | + +------+ + PCP | Unavailable | + +------+ + Encounter Details +--------+ + + + + | Date | Type | Department | Care Team | Description | +--------+ + + + + | 11/24/ | Hospital | [facility] | Maximilian Benoit | | | 2007 | Encounter | CONVERSION | MD [address] | | | | | [address] | [address] | | | | | [address] | [facility] [address] | | | | | [place], [place] | [phone] | | | | | [address] | | | | | | [phone] | | | +--------+ + + + [...] | | | | | [place] [address] | | | | | | [phone] | | | | | | | | +--------+---------+ + + + | 03/13/ | Office | Sleep Medicine | Dann Schmid MD | | | 2019 | Visit | | [address] | | | | | | [place] | | | | | | [address] | | | | | | | | +--------+---------+ + + + documented as of this encounter Visit Diagnoses Not on filedocumented in this encounter"
--- OUTSIDE RECORDS SUMMARY | ~2020-03-03 | XMS | Encounter Summary ---
Demographics + + + | Address | [address] | | | [place] [address] | + + + | Home Phone | | + + + | Preferred Language | Unknown | + + + | Marital Status | Unknown | + + + | Tenriism Affiliation | Unknown | + + + [...] Team Providers + +------+ + | Care Metal Furrer Name | Role | Phone | + +------+ + PCP | Unavailable | + +------+ + Encounter Details +--------+ + + + + | Date | Type | Department | Care Team | Description | +--------+ + + + + | 11/13/ | Hospital | [facility] | | | | 2006 | Encounter | MED CTR XRAY [address] | | | | | | [address] [place] | | | | | | [place] [address] | | | | | | [phone] | | | +--------+ + + + [...] | 03/08/ | Office | Cardiology | NicoleDenia | | | 2019 | Visit | | [address] | | | | | | [address] [place] | | | | | | [place] [address] | | | | | | [phone] | | | | | | | | +--------+---------+ + + + | 03/13/ | Office | Sleep Medicine | Dann Schmid MD | | | 2019 | Visit | | [address] | | | | | | [place] | | | | | | [address] | | | | | | | | +--------+---------+ + + + documented as of this encounter Visit Diagnoses Not on filedocumented in this encounter"
--- OUTSIDE RECORDS SUMMARY | ~2020-03-03 | XMS | Encounter Summary ---
Demographics + + + | Address | [address] | | | [place] [address] | + + + | Home Phone [...] Team Providers + +------+ + | Care Procurement Assistant Name | Role | Phone | [...] + + | 09/01/ | Telephone | [facility] | Matty Bingham MD | Pain | | 2020 | | NEPHROLOGY [place] | [address] | | | | | [address] | [address] [place], [place] | | | | | [address] [place], [place] | [address] | | | | | [address] | | | | | | [phone] | | | +--------+ + + + [...] was held thru [facility] PCP at the [facility], as there was concern about toxicity of this medication i n the setting of her chronic kidney disease (CKD). I called back [phone] ext [phone] & spoke with the RN in charge [...] m anage pain/neuropathy medications. Best, MD [facility] documented in this enco unter Plan of [...] | | | | | [place] [address] | | | | | | [phone] | | | | | | | | +--------+---------+ + + + | 03/13/ | Office | Sleep Medicine | Dann Schmid MD | | | 2019 | Visit | | [address] | | | | | | [place] | | | | | | [id number] | | | | | | | | +--------+---------+ + + + documented as of this encounter Visit Diagnoses Not on filedocumented in this encounter"
--- OUTSIDE RECORDS SUMMARY | ~2020-03-03 | XMS | Encounter Summary ---
Demographics + + + | Address | [address] | | | [place] [address] | + + + | Home Phone [...] Team Providers + +------+ + | Care Mirror Department Supervisor Name | Role | Phone | [...] | | | [address] [place] | [place] [address] | | | | | [place] [address] | | | | | | [phone] | | | +--------+ + + + [...] | | | | | [place] [address] | | | | | | [phone] | | | | | | | | +--------+---------+ + + + | 03/13/ | Office | Sleep Medicine | Dann Schmid MD | | | 2019 | Visit | | [address] | | | | | | [place] | | | | | | [address] | | | | | | | [...] + documented in this encounter Results ANGIE Moyer Right 3 + Vw (11/13/2019 12:00 AM [...]
--- OUTSIDE RECORDS SUMMARY | ~2020-03-03 | XMS | Encounter Summary ---
Demographics + + + | Address | [address] | | | [place] [address] | + + + | Home Phone | | + + + | Preferred Language | Unknown | + + + | Marital Status | Unknown | + + + | Amish Affiliation | Unknown | + + + [...] Team Providers + +------+ + | Care Printing Manager Name | Role | Phone | [...] + + | 07/28/ | Documentati | [facility] | [place], | Results (07/28/19) | | 2020 | on | NEPHROLOGY [place] | Naomi Seo | | | | | [address] | Plastic Products Sales Representative | | | | | [address] [facility] [place] | | | | | | [address] | | | | | | [phone] | | | +--------+ + + + [...] | | | | | [place] [address] | | | | | | [phone] | | | | | | | | +--------+---------+ + + + | 03/13/ | Office | Sleep Medicine | Dann Schmid MD | | | 2020 | Visit | | [address] | | | | | | [place] | | | | | | [id number] | | | | | | | [...] 1.001 - 1.030 | | | | [place], | | | | | | Urine [...]
--- OUTSIDE RECORDS SUMMARY | ~2020-03-03 | XMS | Encounter Summary ---
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 (See chart for [...] Practitioner Contact information: [address] [place] [address] [facility]. Specialty: Emergency Medicine Why: If symptoms worsen Contact information: [address] [place] [address] Naeem Bruce MD 11/02/19 [id number] documented in this encou nter Plan of [...] | | | | | [place] [address] | | | | | | [phone] | | | | | | | | +--------+---------+ + + + | 03/13/ | Office | Sleep Medicine | Dann Schmid MD | | | 2019 | Visit | | [address] | | | | | | [place] | | | | | | [address] | | | | | | | [...] | | | RN: | | | [id number] | | | [id number] | | | riteri | | | [...] | | | St. | | | [place] | | | y | | | [...] | | | St. | | | [facility] | | | y H. | | [...] | | | St. | | | [place] | | | y H. | | | [place] | | | [place] | | | Emerge | | | ncy | | | Chief | | | Compla | | | int: | | | SOB | | | May | | | 12, | | | 2020 | | | [facility] | | | [facility] | | | [facility] | | | y H. | | [...] | | | St. | | | [place] | | | y H. | | [...] | | | St. | | | [place] | | | y H. | | [...] | | | St. | | | [place] | | | y H. | | [...] | | | St. | | | [place] | | | y H. | | [...] | | | St. | | | [place] | | | y H. | | [...] | | | St. | | | [place] | | | y H. | | [...] | | | [place], | | | [id number] | | | [phone] | | | [...] | | | otify/ | | | [id number] | | | [phone] | | | [phone] | | | [phone] | | | [id number] | | | [id number] | | | [...]
--- OUTSIDE RECORDS SUMMARY | ~2020-03-03 | XMS | Encounter Summary ---
Demographics + + + | Address | [address] | | | [place] [address] | + + + | Home Phone [...] Team Providers + +------+ + | Care Stevedore Hold Name | Role | Phone | + +------+ + | Benny James MD | PCP | | + +------+ + Encounter Details +--------+ + + + + | Date | Type | Department | Care Team | Description | +--------+ + + + + | 07/27/ | Orders Only | [facility] | Art, | | | 2019 | | NEPHROLOGY [place] | Naomi Seo | | | | | [address] [place] | Supervisor Sheet Manufacturing | | | | | [address] [place] | | | | | | [address] | | | | | | [phone] | | | +--------+ + + + [...] | 03/08/ | Office | Cardiology | Daisy Nicolecy | | | 2019 | Visit | | [address] | | | | | | [address] [place] | | | | | | [place] [address] | | | | | | [phone] | | | | | | | [...] 1.001 - 1.030 | | | | [place], | | | | | | Urine [...]
--- OUTSIDE RECORDS SUMMARY | ~2020-03-03 | XMS | Encounter Summary ---
Demographics + + + | Address | [address] | | | [place] [address] | + + + | Home Phone [...] Team Providers + +------+ + | Care Domestic Maid Name | Role | Phone | + [...] [address] | | | | | | [place], [place] | | | | | | [address] | | | | | | [phone] | | | +--------+ + + + [...] | | | | | [place] [address] | | | | | | [phone] | | | | | | | [...]
--- OUTSIDE RECORDS SUMMARY | ~2020-03-03 | XMS | Encounter Summary ---
Demographics + + + | Address | [address] | | | [place] [address] | + + + | Home Phone [...] Team Providers + +------+ + | Care Commissary Assistant Name | Role | Phone | + +------+ + | Lizet Oliva | PCP | | + +------+ + Reason for Visit +--------+ + | Reason | Comments | +--------+ + | Other | US renal complete report 01/24/20 | +--------+ + Encounter Details +--------+ + + + + | Date | Type | Department | Care Team | Description | +--------+ + + + + | 01/24/ | Documentati | [facility] | [place], | Other (US renal | | 2020 | on | NEPHROLOGY [place] | Naomi Seo | complete report | | | | [address] | Tube Drawing Supervisor | 01/24/20) | | | | [address] [place] | | | | | | [address] | | | | | | [phone] | | | +--------+ + + + [...] | 03/08/ | Office | Cardiology | Corey Denia | | | 2019 | Visit | | [address] | | | | | | [address] [place] | | | | | | [place] [address] | | | | | | [phone] | | | | | | | | +--------+---------+ + + + | 03/13/ | Office | Sleep Medicine | Dann Schmid MD | | | 2019 | Visit | | [address] | | | | | | [place] | | | | | | [address] | | | | | | | | +--------+---------+ + + + documented as of this encounter Visit Diagnoses Not on filedocumented in this encounter"
--- OUTSIDE RECORDS SUMMARY | ~2020-03-03 | XMS | Encounter Summary ---
Demographics + + + | Address | [address] | | | [place] [address] | + + + | Home Phone | | + + + | Preferred Language | Unknown | + + + | Marital Status | Unknown | + + + | Christian Affiliation | Unknown | + + + | Race | White | + + + | Ethnic Group | Unknown | + + + Author + + + | Author | [facility] | | | and [place] | + + + | Organization | [facility] | | [...] Team Providers + +------+ + | Care Engineer Exhauster Name | Role | Phone | + +------+ + | Lizet Oliva | PCP | | + +------+ + Encounter Details +--------+ + + + + | Date | Type | Department | Care Team | Description | +--------+ + + + + | 03/02/ | Abstract | [facility] | Graham Black | | | 2020 | | CARDIOLOGY [address] | MD Anup [address] | | | | | [place], | [address] [place] | | | | | [place] [address] | [place] [address] | | | | | [phone] | | | | | | | [...] | | | | | [place] [address] | | | | | | [phone] | | | | | | | | +--------+---------+ + + + | 03/13/ Office | Sleep Medicine | Dann Schmid MD | | | 2019 | Visit | | [address] | | | | | | [place] | | | | | | [address] | | | | | | | [...] + documented in this encounter Results CBC w/ Auto Differential (03/02/2020) + +-------+ [...] + + | Blood | + + External Lab: PTT (03/02/2020) + + + [...] [facility] | + + External Lab: Protime INR (03/02/2020) + +---------+ + + + | [...] + | [facility] | + + documented in this encounter Visit Diagnoses Not on filedocumented in this encounter"
--- OUTSIDE RECORDS SUMMARY | ~2020-03-03 | XMS | Encounter Summary ---
Demographics + + + | Address | [address] | | | [place] [address] | + + + | Home Phone [...] Team Providers + +------+ + | Care Retail Store Associate Name | Role | Phone | + +------+ + PCP | Unavailable | + +------+ + Encounter Details +--------+ + + + + | Date | Type | Department | Care Team | Description | +--------+ + + + + | 08/11/ | Hospital | [facility] | Aníbal Self | | | 2011 | Encounter | HOSPITAL EMERGENCY | MD [address] | | | | | [place] [address] | | | | | [address] [place], [place] | [place], [place] | | | | | [address] | [address] | | | | | [phone] | [phone] | | | | | | | [...] 03/08/ | Office | Cardiology | Denia Nicloe | | | 2019 | Visit | | [address] | | | | | | [address] | | | | | | [place] [address] | | | | | | [phone] | | | | | | | [...]
--- OUTSIDE RECORDS SUMMARY | ~2020-03-03 | XMS | Encounter Summary ---
Demographics + + + | Address | [address] | | | [place] [address] | + + + | Home Phone | | + + + | Preferred Language | Unknown | + + + | Marital Status | Unknown | + + + | Christianity Affiliation | Unknown | + + + | Race | White | + + + | Ethnic Group | Unknown | + + + Author + + + | Author | [facility] | | | and [place] | + + + | Organization | [facility] | | | and [...] Team Providers + +------+ + | Care Model Technician Name | Role | Phone | [...] + + | 09/01/ | Documentati | [facility] | Art, | Other (Signed letter | | 2020 | on | NEPHROLOGY [place] | Naomi Seo | sent to [place] for | | | | [address] | Inspection Engineer | patients PCP | | | | [address] | | confirmation | | | | [place], [place] | | received) | | | | [address] | | | | | | [phone] | | | +--------+ + + + [...] | 03/08/ | Office | Cardiology | Nicole Denia | | | 2019 | Visit | | [address] | | | | | | [address] [place] | | | | | | [place] [address] | | | | | | [phone] | | | | | | | | +--------+---------+ + + + | 03/13/ | Office | Sleep Medicine | Dann Schmid MD | | | 2019 | Visit | | [address] | | | | | | [place] | | | | | | [address] | | | | | | | | +--------+---------+ + + + documented as of this encounter Visit Diagnoses Not on filedocumented in this encounter"
--- OUTSIDE RECORDS SUMMARY | ~2020-03-03 | XMS | Encounter Summary ---
Demographics + + + | Address | [address] | | | [place] [address] | + + + | Home Phone [...] Team Providers + +------+ + | Care Cloud Systems Architect Name | Role | Phone | [...] + + | 10/04/ | Hospital | [facility] | Paulo Ayers MD | Paroxysmal atrial | | 2019 - | Encounter | [facility] | [address] | fibrillation ([facility]); | | | | [address] [place] | [place] | Atrial fibrillation | | 10/06/ | | [place] [address] | [id number] | with RVR ([facility]); | | 2019 | | [phone] | | Acute heart failure | | | | | | with preserved | | | | | | ejection fraction | | | | | | ([facility]); CKD (chronic | | | | | | kidney disease) | | | | | | stage 4, GFR 15-29 | | | | | | ml/min ([facility]); | | | | | [...] E' Septal Velocity 5.38 cm/s MV Deceleration [place] 700.72 cm/s2 MV Deceleration Time 132.19 msec [...] at least 3 weeks - Hospitalized in [place] for a day in August for rate [...] with RVR, would not ca ll this [place] Diabetes mellitus type 2, insulin dependent with [...] Nicole PA-C In 1 month. Specialties: Physician Rugby League Footballer, Cardiology Contact information: [address] [address] Discharge Medications New Medications Details [...] Travis Copeland MD, 10/07/2019 1:25 PM [facility] documented in this encounter Discharge Instructions [...] | | | | | | | [id number]= 2 | | | | | | | -191= 3 | | | | | | | [id number]= 4 | | | | | | [...] of this encounter Progress Notes Leo Cerna, Project Specialist - 10/07/2019 3:26 PM PDTPHARMACY SERVICES: [...] before initiating an y new medications (e.g., [id number]) WARFARIN Indication for medication Importance of following-up with outpatient [place] clinic for warfarin dosing Importance of continuation [...] before initiating an y new medications (e.g., [id number]-[id number]) Assessment/Plan: 1. Patient was provided a handout/booklet on Metoprolol Tartrate and Warfarin 2. Patient demonstrated understanding and all questions were answered. 3. Please consult pharmacist for any further medication related education. 4. Thank you. Electronically signed by: Leo Cerna, Project Specialist 10/07/2019 3:27 PM Travis Membreno MD - 10/06/2019 4:22 PM PDTFormatting of this note might be different f rom the original. [facility] Hospitalist Progress Note Lizet Delgado is [...] at least 3 weeks - Hospitalized in [place] for a day in August for rate [...] with RVR, would not ca ll this [place] Diabetes mellitus type 2, insulin dependent with [...] ECGs available Confirmed by HILDA WEBB, JOSEPHINE ([id number]) on 10/06/2019 6:26:09 AM POC Glucose Result [...] E' Septal Velocity 5.38 cm/s MV Deceleration [place] 700.72 cm/s2 MV Deceleration Time 132.19 msec [...] above. Travis Copeland MD 10/06/2019 4:25 PM [facility] Vicente Llanes, [facility] rmD - 10/06/2019 7:30 AM PDT [...] Ayers MD - 10/05/2019 10:46 PM PDT [facility] HISTORY AND PHYSICAL Pt. Name/Age/: [...] kidney disease) stage 4, GFR 15-29 ml/min ([facility]) 07/28/2019 Diabetes mellitus ([facility]) 07/28/2019 Hypertension 07/28/2019 Nicotine dependence [...] unless otherwise stated in HPI HOME MEDICATIONS: [facility] Home Medications Medication Sig albuterol [...] Darwin l give IV Lasix. Type II [place]: Troponin elevation likely due to rapid ventricular [...] by: Paulo Ayers MD 10/05/2019 11:43 PM [facility] documented in this enc ounter Consult Notes Graham Black MD - 10/07/2019 10:40 AM PDTFormatting of this note might be differe nt from the original. PATIENT NAME: Lizet Delgado : 1950: AGE: 69 y.o. ADMISSION DATE: 10/05/2019 HOSPITAL DAY NUMBER: [id number] PRIMARY CARE: [facility] REFERRING PROVIDER: Dr. Travis Copeland CONSULTING PROVIDER: Mary Black MD [facility] CONSULTATION DATE OF CONSULTATION: 10/07/19 REASON FOR CONSULT: Atrial fibrillation HISTORY OF PRESENT ILLNESS: Lizet Delgado is a 69 y.o. female with a history of paroxysmal atrial fibrillation, t obacco use, IDDM type II, diabetic nephropathy, CKD IV, and HTN. She was admitted to [facility] on 10/05/2019 for Atrial fibrillation with RVR ([facility]). She has as sociated heart failure [...] kidney disease) stage 4, GFR 15-29 ml/min ([facility]) 07/28/2019 Diabetes mellitus ([facility]) 07/28/2019 Hypertension 07/28/2019 Nicotine dependence [...] file Gets together: Not on file Attends yazidism service: Not on file Active member of [...] E' Septal Velocity 5.38 cm/s MV Deceleration [place] 700.72 cm/s2 MV Deceleration Time 132.19 msec [...] Female Gender (1), giving her a C [id number] of 5, estimating a 5=6.7% risk of [...] this chart may have been created with [employer] voice recognition software. Occasi onal wrong-word or [...] in time to pick-up meds from the [facility]. Prior to discharge Dr. Copeland decided [...] has received discharge orders. She is a [facility] patient of [facility] and [facility] Script[facility]ed to team Strength and CANDE notifamy osborn that she will need followed in the coumadin clinic. Plan: Home, garbage pick up worker prescriptions from the [place]. Her Son is picking her up.Electronically si gned by: Peggy Gilliam RN 10/07/2019 3:34 PM [facility], because Lizet lives in [place] and would like to get on the ro ad. Finally got an answer at [facility] office. The prescriptions are on her d esk, but not signed. RN at [place] states pharmacy closes at 1630. Lizet's Son [...] home after meds picked up at the [place].Electronically sign ed by: Peggy Gilliam RN 10/07/2019 [...] and back out at 1144. HR per telecommunications operator was 120-140. Lizet stated she felt fatigued [...] y.o. female who is admitted for Afib. Mingler Operator had a pleasant visit with the patient. Patient want to smoke in the worst way. I told the patient that isn't going to happen while she is in the hospital. Active listening/pastoral support provided. Prayer was offered. Will see the patient as requested. If there are any other spiritual care issues that arise, please contact level vial sealer. lan of Care - Jamin Vieyra [facility] - 10/06/2019 11:44 AM PDTVisited with this patient who was admit edgar with chest pain. The patient is a and is not service connected. She lives in a ground floor apartment with hr little dog in [place]. Patient still drives and alternate s in using a cane and a walker. She has a son living in [place] who will pick her up and take her home. 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 Patient still smokes and will want to return to smoking after her hospital stay.Electro nically signed by: Jamin Vieyra [facility] 10/06/2019 11:50 AM lan of Care - [...] | | | | | [place] [id number] | | | | | | [phone] | | | | | | | | +--------+---------+ + + + | 03/13/ | Office | Sleep Medicine | Dann Schmid MD | | | 2019 | Visit | | [address] | | | | | | [place] | | | | | | [address] | | | | | | | [...] | | Time | | seconds | STaHiley COLES | | | | | | [...] + | [address] | [address] | [place] | [phone] | | [facility] | | [address] | | | - LABORATORY | | [...] + | [address] | [address] | [place] | [phone] | | [facility] | | [address] | | | - LABORATORY | | [...] [address] | [place] | [phone] | | [facility] | | [address] | | | - LABORATORY | | [...] + | [facility] | [address] | [place] | [phone] | | [facility] | | [address] | | | - LABORATORY | | [...] + | [address] | [address] | [place] | [phone] | | [facility] | | [address] | | | - LABORATORY | | [...] | | | | mg/dL | [facility] | | | | | | MEDICAL | | | | | | CENTER - | | | | | | LABORATORY | | + + + + + + | eGFR, | 18 (L)Comment: | >=60 | [facility] | | | non- | GLOMERULAR FILTRATION | mL/min/1.73m2 | [facility] | | | [place] | RATE,ESTIMATED | | MEDICAL | | | | mL/min/1.22k0Mcok than | | CENTER - | | [...] | 9.9 | 8.7 - 10.4 | PROVIDESCE | | | | | mg/dL | [facility] | | | | | | MEDICAL [...] [address] | [place] | [phone] | | [facility] | | [address] | | | - LABORATORY | | [...] | | POC | | | [facility] | | | | | | MEDICAL [...] + | [facility] | [address] | [place] | [phone] | | [facility] | | [address] | | | - LABORATORY | | [...] ST. | [address] | [place] | [phone] | | [facility] | | [address] | | | - LABORATORY | | [...] | | | | | | n [place] | | | | | + +--------+ [...] 321 | | | LIZET Patient Number [id number] Date of Study | | | 10/06/2019 Visit Number [id number] Referring | | | Physician ORVILLE FULTON | | | Manager Of Network MARY STEPHENS, [facility] Number Date of | | | 1950 Interpreting ELADIA BLACK MD | | | Physician Age | | | 69 year(s) Nurse Gender Female | | | Stress Mail Forwarding System Markup Clerk Procedure Type of Study TTE | | | procedure:ECHO Complete. Procedure DateDate: 10/06/2019 Start: 02:51 | | | PM Study Location: [facility] Quality: Adequate visualization | | | Indications:Atrial [...] Report | | (TTE) Demographics [facility] Room Number 321 | | LIZET Patient Number [id number] Date of Study 10/06/2019 Visit | | Number [id number] Referring Physician ORVILLE FULTON Accession | | [id number] Manager Of Network MARY STEPHENS [facility] Number Date of | | 1950 Interpreting ELADIA BLACK MD | | Physician Age 69 year(s) Nurse Gender Female | | Stress TechnicianProcedureType of Study TTE procedure:ECHO Complete.Procedure | | DateDate: 10/06/2019 Start: 02:51 PMStudy [facility]: [facility]: Adequate | | visualizationIndications:Atrial fibrillation, unspecified [...] [address] | [place] | [phone] | | [facility] | | [address] | | | - LABORATORY | | [...] + | [facility] | [address] | [place] | [phone] | | [facility] | | [address] | | | - LABORATORY | | [...] + | [facility] | [address] | [place] | [phone] | | [facility] | | [address] | | | - LABORATORY | | [...] ST. | [address] | [place], [place] | [phone] | | [facility] | | [address] | | | - LABORATORY | | [...] [address] | [place] | [phone] | | [facility] | | [address] | | | - LABORATORY | | [...] | | | | | | STHailey CLOES | | | | | | [...] | | | verified. | | [facility] | | [...] mL/min/1.73m2 | [facility] | | | [place] | RATE,ESTIMATED | | MEDICAL | | | | mL/min/1.86z0Zsgz than | | CENTER - | | [...] [address] | [place] | [phone] | | [facility] | | [address] | | | - LABORATORY | | [...] | | | | | | [employer] [employer] | | | | | [...] [address] | [place] | [phone] | | [facility] | | [address] | | | - LABORATORY | | [...] method in use as of | | Gold AmericaHailey COLES | | | | July 22, [...] + | [facility] | [address] | [place] | [phone] | | [facility] | | [address] | | | - LABORATORY | | [...] [address] | [place] | [phone] | | [facility] | | [address] | | | - LABORATORY | | [...] | | | | JOSEPHINE STEVENS MD ([id number]) | | | | | | on [...] | GLOMERULAR FILTRATION | mL/min/1.73m2 | [facility] | | | [place] | RATE,ESTIMATED | | MEDICAL | | | | mL/min/1.57t6Xtfp than | | CENTER - | | [...] | ine Ratio | | | STHailey LIZET | | [...] [address] | [place] | [phone] | | [facility] | | [address] | | | - LABORATORY | | [...] | | | | | | [employer] [place] [employer] | | | | | [...] [address] | [place] | [phone] | | [facility] | | [address] | | | - LABORATORY | | | | + + + + + documented in this encounter Visit Diagnoses + + | Diagnosis | + + | Atrial fibrillation with RVR ([facility]) - Primary Atrial fibrillation | + [...] 81 mg 81 mg, | Given | 05/14/20 | 81 mg | | | | [...] | | | | | | | 2735-2128 Use NIGHT DOSE for | | | | | | | doses scheduled: HS, | | | | | | | Nighttime 5107-9247 If the BG is | | | [...] | | | | | | | 6875-3126 Use NIGHT DOSE for | | | | | | | doses scheduled: HS, | | | | | | | Nighttime 7660-8477 If the BG is | | | [...] PRN, Nicotine Craving, | | | Starting [facility] 10/05/19 at 2250 | | + +---+ | | | + +---+ | ondansetron (ZOFRAN) injection | | | 4 mg 4 mg, Intravenous, EVERY 6 | | | HOURS PRN, Nausea, Vomiting, | | | Starting [facility] 10/05/19 at 2237, | | | First line agent, | | + +---+ | | | + +---+ | pharmacy consult - other | | | medications/reasons PHARMACY | | | CONSULT, Starting [facility] 10/07/19 at | | | 1415, [...]
--- OUTSIDE RECORDS SUMMARY | ~2020-03-03 | XMS | Encounter Summary ---
Demographics + + + | Address | [address] | | | [place] [address] | + + + | Home Phone [...] Team Providers + +------+ + | Care Surface Grinder Tender Name | Role | Phone | + +------+ + | Lizet Oliva | PCP | | + +------+ + Reason for Visit +--------+--------+ + | Reason | Onset | Comments | | | Date | | +--------+--------+ + | Other | 11/03/ | records sent - [facility] | | | 2020 | | +--------+--------+ + Encounter Details +--------+ + + + + | Date | Type | Department | Care Team | Description | +--------+ + + + + | 11/03/ | Telephone | [facility] | Graham Black | Other (records sent | | 2019 | | [address] | MD Anup [address] | - [facility]) | | | | [address], | [address] [place] | | | | | [place] [address] | [place] [address] | | | | | [phone] | [phone] | | | | | | | [...] along with script for Tamiko faxed to [facility] at [phone] .......... .................................Betzaida Arenas RN, on 11/04/19 at [...] | | | | | [place] [address] | | | | | | [phone] | | | | | | | | +--------+---------+ + + + | 03/13/ | Office | Sleep Medicine | Dann Schmid MD | | 2019 | Visit | | [address] | | | | | | [place] | | | | | | [address] | | | | | | | | +--------+---------+ + + + documented as of this encounter Visit Diagnoses Not on filedocumented in this encounter"
--- OUTSIDE RECORDS SUMMARY | ~2020-03-03 | XMS | Encounter Summary ---
Demographics + + + | Address | [address] | | | [place] [address] | + + + | Home Phone [...] Team Providers + +------+ + | Care Channel Development Director Name | Role | Phone | [...] | Encounter | CONVERSION | MD [address] | | | | | [address] | [address] | | | | | [address] | [facility] [address] | | | | | [place], [place] | [phone] | | | | | [address] | | | | | | [phone] | | | +--------+ + + + [...] | | | | | [place] [address] | | | | | | [phone] | | | | | | | | +--------+---------+ + + + | 03/13/ | Office | Sleep Medicine | Dann Schmid MD | | | 2019 | Visit | | [address] | | | | | | [place] | | | | | | [id number] | | | | | | | | +--------+---------+ + + + documented as of this encounter Visit Diagnoses Not on filedocumented in this encounter"
[~2020-03-03 23:49] MED LIST changes: +BENADRYL25 MG PO; +DICYCLOMINE HCL20 MG PO; +EZALLOR SPRINKL10 MG PO; +FISH OIL CONC1000 MG PO; +FLEET ENEMA133 ML PO; +HYDRALAZINE HCL10 MG PO; +IRON325 M1 PO; +JANTOVEN2 MG PO; +LAXATIVE SUPPOS10 MG PR; +MELATONIN3 MG PO; +METAFOLBIC TAB1 EACH PO; +PRAMIPEXOLE0.125 MG PO; +PROTONIX40 MG PO; +SENNA LAX8.6 MG PO; +TOPROL XL50 MG PO; +TORSEMIDE20 MG PO; +VITAMIN D325 MCG PO; +WARFARIN SODIUM1 MG PO; +WARFARIN SODIUM2 MG PO; +WARFARIN SODIUM3 MG PO; +ZESTRIL5 MG PO; +ZOFRAN4 MG PO
--- OUTSIDE RECORDS SUMMARY | 2020-03-03 23:52 | XMS ---
PreManage Notification: SHARYN HAND Security Hand Method Lasting Machine Operator Events No recent Security Events currently on file CRITERIA MET - [facility] Current PHONE: [phone] SHARYN SNYDER Nurse Practitioner: Family 06/23/2018-Current PHONE: [phone] [facility] has no Care Guidelines for this patient. Care History Medical/Surgical 07/13/2019 [facility] - PATIENT IS A AND RECEIVES SERVICES AT THE [facility] . - PATIENT HAS AN HUMAN RESOURCES EXECUTIVE ASSISTANT AT THE [facility]- [phone] EXT [phone]. - PATIENT PCP HAS NOT RECEIVED RECORDS FROM RECENT ED VISITS-CHW CONTACTED MEDICAL RECORDS AND PROVIDED FAX NUMBER TO HAVE RECENT ED RECORDS SENT FOR FOLLOW UP-PCP WILL BE IN CONTACT WITH PATIENT. E.DHailey VISIT COUNT (12 MO.) 1 [facility] 10 [facility] TOTAL 11 NOTE: Visits indicate total known visits. ED/UCC VISIT TRACKING (12 MO.) 03/03/2020 23:50 [facility] TYPE: Emergency COMPLAINT: - IRREGULAR HEART RATE 01/14/2020 16:57 [facility] TYPE: Emergency COMPLAINT: - ABD PAIN 11/25/2019 15:57 [facility] TYPE: Emergency COMPLAINT: - L FOOT SKIN PROBLEM DIAGNOSES: - Allergy status to sulfonamides status - Type 2 diabetes mellitus with diabetic chronic kidney disease - Blister (nonthermal), right foot, initial encounter - Nicotine dependence, unspecified, uncomplicated - FCI (current) use of anticoagulants - Blister (nonthermal), left foot, initial encounter - Hypertensive heart and chronic kidney disease with heart fail - Chronic kidney disease, unspecified - Unspecified atrial fibrillation - Other fci (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 - Exposure to other specified factors, initial encounter - Allergy status to other drugs, medicaments and biological sub - Allergy status to other antibiotic agents status - Heart failure, unspecified - Localized edema 11/13/2019 15:10 [facility] TYPE: Emergency COMPLAINT: - ANKLE PAIN, FALL 11/02/2019 15:28 [facility] Sharyn FLOYD TYPE: Emergency DIAGNOSES: - Postconcussional syndrome [...] atrial fibrillation - Unspecified atrial fibrillation - FCI (current) use of insulin - Type 2 diabetes mellitus without complications - Essential (primary) hypertension - Other fci (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 - Dizziness and giddiness [...] to other specified factors, initial encounter - exterminator helper termite (current) use of aspirin - Type 2 diabetes mellitus without complications - Allergy status to other antibiotic agents status - 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 - Other bursitis of elbow, right elbow - Unspecified sprain of right elbow, initial encounter INPATIENT VISIT TRACKING (12 MO.) 01/16/2020 14:17 [facility] TYPE: Medical Surgical COMPLAINT: - CHF DIAGNOSES: - Acute on chronic diastolic (congestive) heart failure - Allergy status to sulfonamides status - Other fracture of upper and lower end of right fibula, subseq - Type 2 diabetes mellitus with diabetic chronic kidney disease - 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 - Other fracture of upper and lower end of right fibula, subseq - Allergy status to other antibiotic agents status - exterminator helper termite (current) use of anticoagulants - Allergy status to sulfonamides status - exterminator helper termite (current) use of opiate analgesic - Restless legs syndrome - Allergy status to other drugs, medicaments and biological sub - Paroxysmal atrial fibrillation - Allergy status to other drugs, medicaments and biological sub - Hyperlipidemia, unspecified - Acute respiratory failure with hypoxia - Nicotine dependence, unspecified, uncomplicated - exterminator helper termite (current) use of insulin - Nicotine dependence, unspecified, uncomplicated - Allergy status to other antibiotic agents status - Paroxysmal atrial fibrillation - Acute on chronic diastolic (congestive) heart failure - Type 2 diabetes mellitus with diabetic chronic kidney disease - Chronic kidney disease, stage 3 (moderate) - Type 2 diabetes mellitus with hypoglycemia without coma - FCI (current) use of anticoagulants - Contact with and (suspected) exposure to other viral communic - Contact with and (suspected) exposure to other viral communic - Chronic kidney disease, stage 3 (moderate) - Restless legs syndrome - Hyperlipidemia, unspecified - Type 2 diabetes mellitus with hypoglycemia without coma - FCI (current) use of opiate analgesic - Hypertensive heart and chronic kidney disease with heart fail - FCI (current) use of insulin - Gastro-esophageal reflux disease without esophagitis - Gastro-esophageal reflux disease without esophagitis - Other fci (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 - Hypertensive heart and chronic kidney disease with heart fail 11/13/2019 15:11 [facility] TYPE: Observation COMPLAINT: - ACUTE KIDNEY INJURY DIAGNOSES: - Other fracture of upper and lower end of right fibula, initia - Nicotine dependence, unspecified, uncomplicated - Acute kidney failure, unspecified - exterminator helper termite (current) use of insulin - exterminator helper termite (current) use of anticoagulants - Bathroom of unspecified non-institutional (private) residence - 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 - Pain in right [...] mellitus with diabetic chronic kidney disease - exterminator helper termite (current) use of anticoagulants - Other fci (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 - Other specified postprocedural states - Hypertensive heart and chronic kidney disease without heart f - Chronic kidney disease, stage 4 (severe) - Allergy status to other antibiotic agents status - Nicotine dependence, unspecified, uncomplicated - Hyperlipidemia, unspecified - FCI (current) use of insulin - Unspecified atrial [...] diabetic chronic kidney disease - Dehydration - exterminator helper termite (current) use of insulin - Type 2 diabetes mellitus with diabetic chronic kidney disease - Hyperlipidemia, unspecified - Paroxysmal atrial fibrillation - Hypertensive chronic kidney disease with stage 1 through stag - Other fci (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 - 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 - Nicotine dependence, unspecified, uncomplicated - Repeated falls - Contact with and (suspected) exposure to other viral communic - Allergy status to sulfonamides status - Repeated falls - Contact with and (suspected) exposure to other viral communic - Chronic kidney disease, stage 4 (severe) - Allergy status to sulfonamides status - Dehydration - FCI (current) use of insulin - Hypertensive chronic kidney disease with stage 1 through stag - Allergy status to other antibiotic agents status - FCI (current) use of anticoagulants - exterminator helper termite (current) use of anticoagulants - Hyperlipidemia, unspecified - Allergy status to other drugs, medicaments and biological sub 10/05/2019 22:09 [facility] TYPE: Surgical Services DIAGNOSES: - Acute diastolic (congestive) heart failure - Chronic kidney disease, stage 4 (severe) - Afib - Tobacco use - Unspecified atrial fibrillation - Paroxysmal atrial fibrillation 09/17/2019 06:54 [facility] TYPE: Observation COMPLAINT: - NEW ONSET AFIB RVR DIAGNOSES: - Acute kidney failure, unspecified - exterminator helper termite (current) use of oral hypoglycemic drugs - Chronic kidney disease, unspecified - Hypertensive chronic kidney disease with stage 1 through stag - Unspecified atrial fibrillation - Palpitations - Allergy status to sulfonamides status - FCI (current) use of aspirin - Type 2 diabetes mellitus with diabetic nephropathy - 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 - Type 2 diabetes mellitus with diabetic chronic kidney disease - Allergy status to other drugs, medicaments and biological sub - Nicotine dependence, unspecified, uncomplicated - Allergy status to other antibiotic agents status [email or web address]
[2020-03-04] MEDS ORDERED: PLAVIX75 MG PO (00:08)
--- NOTE | 2020-03-05 11:27 | EKG ---
[facility] [address] [place] [address] Signed Atrial fibrillation with rapid ventricular response Nonspecific ST and T wave abnormality Abnormal ECG When compared with ECG of 13-NOV-2019 16:38, Atrial fibrillation has replaced Sinus rhythm Vent. rate has increased BY 46 BPM Non-specific change in ST segment in Inferior leads Non-specific change in ST segment in Anterolateral leads Confirmed by RODRIGO WALL MD ([id number]) on 03/05/2020 11:27:39 AM Electronically Signed By: RODRIGO WALL MD 03/05/20 1127 PATIENT NAME: SHARYN HAND Electrocardiogram DATE OF : [birth year] PHYSICIAN: RODRIGO WALL MD REPORT #: [id number] REPORT IS CONFIDENTIAL AND NOT TO BE RELEASED WITHOUT AUTHORIZATION
== END 2020-03-04 01:37 | disposition home or self-care (01) ==
LOC: ED 23:49
DX: I48.91 Unspecified atrial fibrillation (principal); E11.22 Type 2 diabetes mellitus with diabetic chronic kidney disease; I12.9 Hypertensive chronic kidney disease with stage 1 through stage 4 chronic kidney disease, or unspecified chronic kidney disease; N18.30 Chronic kidney disease, stage 3 unspecified; F17.200 Nicotine dependence, unspecified, uncomplicated; Z88.2 Allergy status to sulfonamides; Z88.8 Allergy status to other drugs, medicaments and biological substances; Z88.1 Allergy status to other antibiotic agents; Z79.899 Other long term (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; Z79.4 Long term (current) use of insulin
CPT/HCPCS: 71045; 80053; 83735; 83880; 84484; 85025; 93005; 93010; 99285-25

== ENCOUNTER 2020-08-07 20:12 | Emergency (ER) | payer OTHER ==
[~2020-08-07] VITALS: Ht 165.1 cm; Wt 80.6 kg
[~2020-08-07 20:12] MED LIST changes: +PLAVIX75 MG PO
--- OUTSIDE RECORDS SUMMARY | 2020-08-07 20:14 | XMS ---
PreManage Notification: SHARYN HAND Security Mobile Sales Consultant Events No recent Security Events currently on file CRITERIA MET - [facility] CARE PROVIDERS [facility] Long Term [facility] [place] Airline. \F\ [employer] PHONE: [phone] SHRAYN SNYDER Nurse Practitioner: Family 06/23/2018-Current PHONE: [phone] Godfrey has no Care Guidelines for this patient. Care History Medical/Surgical 07/13/2019 [facility] - PATIENT IS A AND RECEIVES SERVICES AT THE [facility] . 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 - PATIENT PCP HAS NOT RECEIVED RECORDS FROM RECENT ED VISITS-CHW CONTACTED MEDICAL RECORDS AND PROVIDED FAX NUMBER TO HAVE RECENT ED RECORDS SENT FOR FOLLOW UP-PCP WILL BE IN CONTACT WITH PATIENT. E.D. VISIT COUNT (12 MO.) 1 Chloé Wright M.C. 9 RUBY Osman TOTAL 10 NOTE: Visits indicate total known visits. ED/UCC VISIT TRACKING (12 MO.) 08/07/2020 20:12 RUBY [facility] [place] TYPE: Emergency COMPLAINT: - DIFFICULY BREATHING 03/03/2020 23:50 RUBY [facility] [place] TYPE: Emergency COMPLAINT: - IRREGULAR HEART RATE DIAGNOSES: - Unspecified atrial fibrillation - Allergy status to sulfonamides - Chronic kidney disease, stage 3 unspecified - Type 2 diabetes mellitus with diabetic chronic kidney disease - Hypertensive chronic kidney disease with stage 1 through stage 4 chronic kidney disease, or unspecified chronic kidney disease - Allergy status to other drugs, medicaments and biological substances - Allergy status to other antibiotic agents - Allergy status to other antibiotic agents - Allergy status to sulfonamides - Nicotine dependence, unspecified, uncomplicated - shelter (current) use of insulin - Other moth exterminator (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 - Allergy status to other drugs, medicaments and biological substances - Chronic kidney disease, stage 3 unspecified - CHRONIC KIDNEY DISEASE, STAGE 3 UNSPECIFIED 01/14/2020 16:57 [facility] [place] TYPE: Emergency COMPLAINT: - ABD PAIN 11/25/2019 15:57 [facility] [place] TYPE: Emergency COMPLAINT: - L FOOT SKIN PROBLEM DIAGNOSES: - Allergy status to sulfonamides - Type 2 diabetes mellitus with diabetic chronic kidney disease - Blister (nonthermal), right foot, initial encounter - Nicotine dependence, unspecified, uncomplicated - tank terminal gauger (current) use of anticoagulants - Blister (nonthermal), left foot, initial encounter - Hypertensive heart and chronic kidney disease with heart failure and stage 1 through stage 4 chronic kidney disease, or unspecified chronic kidney disease - Chronic kidney disease, unspecified - Unspecified atrial fibrillation - Other moth exterminator (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 - Exposure to other specified factors, initial encounter - Allergy status to other drugs, medicaments and biological substances - Allergy status to other antibiotic agents - Heart failure, unspecified - Localized edema 11/13/2019 15:10 [facility] [place] TYPE: Emergency COMPLAINT: - ANKLE PAIN, FALL [facility] DIAGNOSES: - Postconcussional syndrome [...] - Allergy status to other antibiotic agents - Allergy status to sulfonamides - Paroxysmal atrial fibrillation - Unspecified atrial fibrillation - tank terminal gauger (current) use of insulin - Type 2 diabetes mellitus without complications - Essential (primary) hypertension - Other fpc (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 - Dizziness and giddiness 09/17/2019 06:53 [facility]BY [facility] [place] TYPE: Emergency COMPLAINT: - BLOOD PRESSURE PROBLEM, JAW PAIN NON INJURY INPATIENT VISIT TRACKING (12 MO.) 01/16/2020 14:17 [facility] [place] TYPE: Medical Surgical COMPLAINT: - CHF DIAGNOSES: - Acute on chronic diastolic (congestive) heart failure - Allergy status to sulfonamides - Other fracture of upper and lower end of right fibula, subsequent encounter for closed fracture with routine healing - Type 2 diabetes mellitus with diabetic chronic kidney disease - Other moth exterminator (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 - Other fracture of upper and lower end of right fibula, subsequent encounter for closed fracture with routine healing - Allergy status to other antibiotic agents - tank terminal gauger (current) use of anticoagulants - Allergy status to sulfonamides - tank terminal gauger (current) use of opiate analgesic - Restless legs syndrome - Allergy status to other drugs, medicaments and biological substances - Paroxysmal atrial fibrillation - Allergy status to other drugs, medicaments and biological substances - Hyperlipidemia, unspecified - Acute respiratory failure with hypoxia - Nicotine dependence, unspecified, uncomplicated - tank terminal gauger (current) use of insulin - Nicotine dependence, unspecified, uncomplicated - Allergy status to other antibiotic agents - Paroxysmal atrial fibrillation - Acute on chronic diastolic (congestive) heart failure - Type 2 diabetes mellitus with diabetic chronic kidney disease - Chronic kidney disease, stage 3 (moderate) - Type 2 diabetes mellitus with hypoglycemia without coma - tank terminal gauger (current) use of anticoagulants - Contact with and (suspected) exposure to other viral communicable diseases - Contact with and (suspected) exposure to other viral communicable diseases - Chronic kidney disease, stage 3 (moderate) - Restless legs syndrome - Hyperlipidemia, unspecified - Type 2 diabetes mellitus with hypoglycemia without coma - tank terminal gauger (current) use of opiate analgesic - Hypertensive heart and chronic kidney disease with heart failure and stage 1 through stage 4 chronic kidney disease, or unspecified chronic kidney disease - shelter (current) use of insulin - Gastro-esophageal reflux disease without esophagitis - Gastro-esophageal reflux disease without esophagitis - Other fpc (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 - Hypertensive heart and chronic kidney disease with heart failure and stage 1 through stage 4 chronic kidney disease, or unspecified chronic kidney disease 11/13/2019 15:11 [facility] [place] TYPE: Observation COMPLAINT: - ACUTE KIDNEY INJURY DIAGNOSES: - Other fracture of upper and lower end of right fibula, initial encounter for closed fracture - Nicotine dependence, unspecified, uncomplicated - Acute kidney failure, unspecified - shelter (current) use of insulin - tank terminal gauger (current) use of anticoagulants - Bathroom of unspecified non-institutional (private) residence as the place of occurrence of the external cause - Other moth exterminator (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 - Pain in right ankle and joints of right foot - Allergy status to other drugs, medicaments and biological substances - Allergy status to other antibiotic agents - Restless legs syndrome - Chronic atrial fibrillation, unspecified - Allergy status to sulfonamides - Fall on same level, unspecified, initial encounter - Chronic kidney disease, stage 3 (moderate) - Paroxysmal atrial fibrillation - Hypertensive chronic kidney disease with stage 1 through stage 4 chronic kidney disease, or unspecified chronic kidney disease - Contact with and (suspected) exposure to other viral communicable diseases - Type 2 diabetes mellitus with diabetic chronic kidney disease - Dehydration 10/26/2019 03:07 [facility] [place] TYPE: Observation COMPLAINT: - A-FIB/RVR DIAGNOSES: - Acquired absence of both cervix and uterus - Acquired absence of other organs - Type 2 diabetes mellitus with diabetic chronic kidney disease - tank terminal gauger (current) use of anticoagulants - Other moth exterminator (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 - Other specified postprocedural states - Hypertensive heart and chronic kidney disease without heart failure, with stage 1 through stage 4 chronic kidney disease, or unspecified chronic kidney disease - Chronic kidney disease, stage 4 (severe) - Allergy status to other antibiotic agents - Nicotine dependence, unspecified, uncomplicated - Hyperlipidemia, unspecified - tank terminal gauger (current) use of insulin - Unspecified atrial fibrillation - Abnormal coagulation profile - Allergy status to sulfonamides - Restless legs syndrome 10/21/2019 09:28 [facility] TYPE: Medical Surgical COMPLAINT: - A FIB / RVR DIAGNOSES: - Allergy status to other drugs, medicaments and biological substances - Disorder of kidney and ureter, unspecified - Chronic kidney disease, stage 4 (severe) - Hypercalcemia - Disorder of kidney and ureter, unspecified - Allergy status to other antibiotic agents - Nicotine dependence, unspecified, uncomplicated - Hypercalcemia - Type 2 diabetes mellitus with diabetic chronic kidney disease - Dehydration - shelter (current) use of insulin - Type 2 diabetes mellitus with diabetic chronic kidney disease - Hyperlipidemia, unspecified - Paroxysmal atrial fibrillation - Hypertensive chronic kidney disease with stage 1 through stage 4 chronic kidney disease, or unspecified chronic kidney disease - Other moth exterminator (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 - Other fpc (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 - Nicotine dependence, unspecified, uncomplicated - Repeated falls - Contact with and (suspected) exposure to other viral communicable diseases - Allergy status to sulfonamides - Repeated falls - Contact with and (suspected) exposure to other viral communicable diseases - Chronic kidney disease, stage 4 (severe) - Allergy status to sulfonamides - Dehydration - shelter (current) use of insulin - Hypertensive chronic kidney disease with stage 1 through stage 4 chronic kidney disease, or unspecified chronic kidney disease - Allergy status to other antibiotic agents - tank terminal gauger (current) use of anticoagulants - tank terminal gauger (current) use of anticoagulants - Hyperlipidemia, unspecified - Allergy status to other drugs, medicaments and biological substances 10/05/2019 22:09 [facility] Sharyn [facility]LO[facility] TYPE: Surgical Services DIAGNOSES: - Acute diastolic (congestive) heart failure - Chronic kidney disease, stage 4 (severe) - Afib - Tobacco use - Unspecified atrial fibrillation - Paroxysmal atrial fibrillation 09/17/2019 06:54 [facility] [place] TYPE: Observation COMPLAINT: - NEW ONSET AFIB RVR DIAGNOSES: - Acute kidney failure, unspecified - shelter (current) use of oral hypoglycemic drugs - Chronic kidney disease, unspecified - Hypertensive chronic kidney disease with stage 1 through stage 4 chronic kidney disease, or unspecified chronic kidney disease - Unspecified atrial fibrillation - Palpitations - Allergy status to sulfonamides - shelter (current) use of aspirin - Type 2 diabetes mellitus with diabetic nephropathy - Other fpc (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 - Type 2 diabetes mellitus with diabetic chronic kidney disease - Allergy status to other drugs, medicaments and biological substances - Nicotine dependence, unspecified, uncomplicated - Allergy status to other antibiotic agents [email or web address]
[2020-08-07] MEDS ORDERED: METOPROLOL SUC100 MG PO (20:42)
[2020-08-07] MEDS ORDERED: LISINOPRIL5 MG PO (20:43)
[2020-08-08] MEDS ORDERED: FUROSEMIDE40 MG PO (00:34)
[2020-08-08] MEDS ORDERED: FUROSEMIDE20 MG PO (00:36)
[2020-08-08] MEDS ORDERED: LOSARTAN POTASS25 MG PO (00:38)
[2020-08-08] MEDS ORDERED: OXYBUTYNIN CHLOR5 MG PO (00:39)
[2020-08-08] MEDS ORDERED: SPIRONOLACTONE25 MG PO (00:39)
[2020-08-08] MEDS ORDERED: NIFEDIPINE ER30 M1 PO (00:40)
[2020-08-08] MEDS ORDERED: ELIQUIS5 MG PO (00:41)
[2020-08-08] MEDS ORDERED: TRESIBA FL100 UNIT/1 SUB-Q (00:45)
[2020-08-08] MEDS ORDERED: IPRAT-ALBUT 0.5-3 ML INH (00:46)
--- NOTE | 2020-08-08 20:08 | EKG ---
[facility] [address] [place] [address] Signed Sinus rhythm with premature atrial complexes Nonspecific ST abnormality Abnormal ECG When compared with ECG of 03-MAR-2020 23:59, Sinus rhythm has replaced Atrial fibrillation Vent. rate has decreased BY 43 BPM Nonspecific T wave abnormality, improved in Anterior leads Confirmed by TIRSO ROCK DO ([id number]) on 08/08/2020 8:08:06 PM Electronically Signed By: TIRSO ROCK DO 08/08/202007 PATIENT NAME: DENNISE DAIGLESHAYRN Electrocardiogram DATE OF : 48 PHYSICIAN: TIRSO ROCK DO REPORT #: [id number] REPORT IS CONFIDENTIAL AND NOT TO BE RELEASED WITHOUT AUTHORIZATION
== END 2020-08-08 02:00 | disposition short-term general hospital (02) ==
LOC: ED 20:12
PROC: 0T9B70Z Drainage of Bladder with Drainage Device, Via Natural or Artificial Opening (ICD-10-PCS; principal; 2020-08-08)
DX: I13.0 Hypertensive heart and chronic kidney disease with heart failure and stage 1 through stage 4 chronic kidney disease, or unspecified chronic kidney disease (principal); I50.9 Heart failure, unspecified; E11.22 Type 2 diabetes mellitus with diabetic chronic kidney disease; N18.30 Chronic kidney disease, stage 3 unspecified; N17.9 Acute kidney failure, unspecified; I48.91 Unspecified atrial fibrillation; E78.5 Hyperlipidemia, unspecified; F17.200 Nicotine dependence, unspecified, uncomplicated; Z20.822 Contact with and (suspected) exposure to COVID-19; Z88.2 Allergy status to sulfonamides; Z88.1 Allergy status to other antibiotic agents; Z88.8 Allergy status to other drugs, medicaments and biological substances; Z79.899 Other long term (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; Z79.01 Long term (current) use of anticoagulants; Z79.4 Long term (current) use of insulin
CPT/HCPCS: 36600; 51702; 71045; 80053; 81001; 82803; 83735; 83880; 84484; 85025; 85379; 85610; 85730; 85732; 93005; 93010; 99285-25; C9803; J1940; U0003

== ENCOUNTER 2020-09-08 16:40 | Emergency (ER) | payer OTHER ==
[~2020-09-08] VITALS: Ht 165.1 cm; Wt 71.5 kg
[~2020-09-08 16:40] MED LIST changes: +FUROSEMIDE40 MG PO; +LISINOPRIL5 MG PO; +NIFEDIPINE ER30 M1 PO; +OXYBUTYNIN CHLOR5 MG PO; +SPIRONOLACTONE25 MG PO; +TRESIBA FL100 UNIT/1 SUB-Q
--- OUTSIDE RECORDS SUMMARY | 2020-09-08 16:44 | XMS ---
PreManage Notification: SHARYN HAND Security Bone Tender Events No recent Security Events currently on file CRITERIA MET - [facility] CARE PROVIDERS [facility] Intermediate [facility] [email or web address]. \F\ [employer] PHONE: [phone] SHARYN SNYDER Nurse Practitioner: Family 06/23/2018-Current PHONE: [phone] Godfrey has no Care Guidelines for this patient. Care History Medical/Surgical 07/13/2019 [facility] - PATIENT IS A AND RECEIVES SERVICES AT THE [facility] [phone]. - PATIENT HAS AN HEALTH SCIENCES DEAN AT THE [facility]- [phone] EXT [id number]. - PATIENT PCP HAS NOT RECEIVED RECORDS FROM RECENT ED VISITS-CHW CONTACTED MEDICAL RECORDS AND PROVIDED FAX NUMBER TO HAVE RECENT ED RECORDS SENT FOR FOLLOW UP-PCP WILL BE IN CONTACT WITH PATIENT. E.D. VISIT COUNT (12 MO.) 1 Chloé Wright M.C. 10 RUBY Osman TOTAL 11 NOTE: Visits indicate total known visits. ED/UCC VISIT TRACKING (12 MO.) 09/08/2020 16:41 [facility] [place] TYPE: Emergency COMPLAINT: - FACIAL SWELLING 08/07/2020 20:12 [facility] [place] TYPE: Emergency COMPLAINT: - DIFFICULY BREATHING DIAGNOSES: - Unspecified atrial fibrillation - Heart failure, unspecified - Allergy status to sulfonamides - Acute kidney failure, unspecified - Allergy status to other drugs, medicaments and biological substances - Hypertensive heart and chronic kidney disease with heart failure and stage 1 through stage 4 chronic kidney disease, or unspecified chronic kidney disease - terminal makeup operator (current) use of anticoagulants - Chronic kidney disease, stage 3 unspecified - Shortness of breath - Hyperlipidemia, unspecified - Nicotine dependence, unspecified, uncomplicated - Other ocean transportation intermediary (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 - Type 2 diabetes mellitus with diabetic chronic kidney disease - Allergy status to other antibiotic agents - assisted (current) use of insulin 03/03/2020 23:50 RU[facility] [place] TYPE: Emergency [...] sulfonamides - Nicotine dependence, unspecified, uncomplicated - assisted (current) use of insulin - Other senior care (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 - Allergy status to [...] encounter - Nicotine dependence, unspecified, uncomplicated - assisted (current) use of anticoagulants - Blister (nonthermal), left foot, initial encounter - Hypertensive heart and chronic kidney disease with heart failure and stage 1 through stage 4 chronic kidney disease, or unspecified chronic kidney disease - Chronic kidney disease, unspecified - Unspecified atrial fibrillation - Other senior care (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 - Exposure to other specified factors, initial encounter - Allergy status to other drugs, medicaments and biological substances - Allergy status to other antibiotic agents - Heart failure, unspecified - Localized edema 11/13/2019 15:10 RUBY [facility] TYPE: Emergency COMPLAINT: - ANKLE PAIN, FALL [facility] DIAGNOSES: - Postconcussional syndrome [...] atrial fibrillation - Unspecified atrial fibrillation - terminal makeup operator (current) use of insulin - Type 2 diabetes mellitus without complications - Essential (primary) hypertension - Other ocean transportation intermediary (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 - Dizziness and giddiness 09/17/2019 06:53 RUBY Kelly TYPE: Emergency COMPLAINT: - BLOOD PRESSURE PROBLEM, JAW PAIN NON INJURY INPATIENT VISIT TRACKING (12 MO.) 08[facility]08/2020 02[facility] DIAGNOSES: - Chronic kidney disease, stage 4 (severe) - Chronic kidney disease, stage 5 - assisted (current) use of insulin - Acute on chronic diastolic (congestive) heart failure - Acute kidney failure, unspecified - CHF exacerbation, kidney failure - Acute diastolic (congestive) heart failure - Essential (primary) hypertension - Type 2 diabetes mellitus with diabetic nephropathy - Retention of urine, unspecified - Persistent proteinuria, unspecified 01/16/2020 14:17 RUBY Kelly TYPE: Medical Surgical COMPLAINT: - CHF DIAGNOSES: - Acute on chronic diastolic (congestive) heart failure - Allergy status to sulfonamides - Other fracture of upper and lower end of right fibula, subsequent encounter for closed fracture with routine healing - Type 2 diabetes mellitus with diabetic chronic kidney disease - Other senior care (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 - Other fracture of upper and lower end of right fibula, subsequent encounter for closed fracture with routine healing - Allergy status to other antibiotic agents - terminal makeup operator (current) use of anticoagulants - Allergy status to sulfonamides - terminal makeup operator (current) use of opiate analgesic - Restless legs syndrome - Allergy status to other drugs, medicaments and biological substances - Paroxysmal atrial fibrillation - Allergy status to other drugs, medicaments and biological substances - Hyperlipidemia, unspecified - Acute respiratory failure with hypoxia - Nicotine dependence, unspecified, uncomplicated - terminal makeup operator (current) use of insulin - Nicotine dependence, unspecified, uncomplicated - Allergy status to other antibiotic agents - Paroxysmal atrial fibrillation - Acute on chronic diastolic (congestive) heart failure - Type 2 diabetes mellitus with diabetic chronic kidney disease - Chronic kidney disease, stage 3 (moderate) - Type 2 diabetes mellitus with hypoglycemia without coma - terminal makeup operator (current) use of anticoagulants - Contact with and (suspected) exposure to other viral communicable diseases - Contact with and (suspected) exposure to other viral communicable diseases - Chronic kidney disease, stage 3 (moderate) - Restless legs syndrome - Hyperlipidemia, unspecified - Type 2 diabetes mellitus with hypoglycemia without coma - terminal makeup operator (current) use of opiate analgesic - Hypertensive heart and chronic kidney disease with heart failure and stage 1 through stage 4 chronic kidney disease, or unspecified chronic kidney disease - terminal makeup operator (current) use of insulin - Gastro-esophageal reflux disease without esophagitis - Gastro-esophageal reflux disease without esophagitis - Other senior care (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 - Hypertensive heart and chronic kidney disease with heart failure and stage 1 through stage 4 chronic kidney disease, or unspecified chronic kidney disease 11/13/2019 15:[address] [facility] [place] TYPE: Observation COMPLAINT: - ACUTE KIDNEY INJURY DIAGNOSES: - Other fracture of upper and lower end of right fibula, initial encounter for closed fracture - Nicotine dependence, unspecified, uncomplicated - Acute kidney failure, unspecified - terminal makeup operator (current) use of insulin - terminal makeup operator (current) use of anticoagulants - Bathroom of unspecified non-institutional (private) residence as the place of occurrence of the external cause - Other senior care (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 - Pain in right [...] mellitus with diabetic chronic kidney disease - assisted (current) use of anticoagulants - Other ocean transportation intermediary (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 - Other specified postprocedural states - Hypertensive heart and chronic kidney disease without heart failure, with stage 1 through stage 4 chronic kidney disease, or unspecified chronic kidney disease - Chronic kidney disease, stage 4 (severe) - Allergy status to other antibiotic agents - Nicotine dependence, unspecified, uncomplicated - Hyperlipidemia, unspecified - assisted (current) use of insulin - Unspecified atrial fibrillation - Abnormal coagulation profile - Allergy status to sulfonamides - Restless legs syndrome 10/21/2019 09:28 RUBY Kelly TYPE: Medical Surgical COMPLAINT: - A FIB [...] diabetic chronic kidney disease - Dehydration - assisted (current) use of insulin - Type 2 diabetes mellitus with diabetic chronic kidney disease - Hyperlipidemia, unspecified - Paroxysmal atrial fibrillation - Hypertensive chronic kidney disease with stage 1 through stage 4 chronic kidney disease, or unspecified chronic kidney disease - Other ocean transportation intermediary (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 - Other ocean transportation intermediary (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 - Nicotine dependence, unspecified, uncomplicated - Repeated falls - Contact with and (suspected) exposure to other viral communicable diseases - Allergy status to sulfonamides - Repeated falls - Contact with and (suspected) exposure to other viral communicable diseases - Chronic kidney disease, stage 4 (severe) - Allergy status to sulfonamides - Dehydration - assisted (current) use of insulin - Hypertensive chronic kidney disease with stage 1 through stage 4 chronic kidney disease, or unspecified chronic kidney disease - Allergy status to other antibiotic agents - assisted (current) use of anticoagulants - assisted (current) use of anticoagulants - Hyperlipidemia, unspecified - Allergy status to other drugs, medicaments and biological substances 10/05/2019 22:09 [facility] TYPE: Surgical Services DIAGNOSES: - Acute diastolic (congestive) heart failure - Chronic kidney disease, stage 4 (severe) - Afib - Tobacco use - Unspecified atrial fibrillation - Paroxysmal atrial fibrillation 09/17/2019 06:54 [facility] [place] TYPE: Observation COMPLAINT: - NEW ONSET AFIB RVR DIAGNOSES: - Acute kidney failure, unspecified - assisted (current) use of oral hypoglycemic drugs - Chronic kidney disease, unspecified - Hypertensive chronic kidney disease with stage 1 through stage 4 chronic kidney disease, or unspecified chronic kidney disease - Unspecified atrial fibrillation - Palpitations - Allergy status to sulfonamides - assisted (current) use of aspirin - Type 2 diabetes mellitus with diabetic nephropathy - Other ocean transportation intermediary (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 - Type 2 diabetes mellitus with diabetic chronic kidney disease - Allergy status to other drugs, medicaments and biological substances - Nicotine dependence, unspecified, uncomplicated - Allergy status to other antibiotic agents [email or web address]
[2020-09-08] MEDS ORDERED: BASAGLAR K100 UNIT/1 SQ (17:17)
[2020-09-08] MEDS ORDERED: PENICILLIN V P500 MG PO (17:59)
[2020-09-08] MEDS ORDERED: HYDROCODON-ACE1 EA10 PO (17:59)
== END 2020-09-08 18:20 | disposition home or self-care (01) ==
LOC: ED 16:40
DX: K04.7 Periapical abscess without sinus (principal); E11.22 Type 2 diabetes mellitus with diabetic chronic kidney disease; I12.9 Hypertensive chronic kidney disease with stage 1 through stage 4 chronic kidney disease, or unspecified chronic kidney disease; I48.91 Unspecified atrial fibrillation; N18.30 Chronic kidney disease, stage 3 unspecified; E78.5 Hyperlipidemia, unspecified; F17.200 Nicotine dependence, unspecified, uncomplicated; Z88.2 Allergy status to sulfonamides; Z88.8 Allergy status to other drugs, medicaments and biological substances; Z88.1 Allergy status to other antibiotic agents; Z79.899 Other long term (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; Z79.4 Long term (current) use of insulin
CPT/HCPCS: 10160; 99282-25

== ENCOUNTER 2021-10-12 13:29 | Emergency (ER) | payer OTHER ==
[~2021-10-12] VITALS: Ht 165.1 cm; Wt 74.0 kg
[~2021-10-12 13:29] MED LIST changes: +BASAGLAR K100 UNIT/1 SQ; +HYDROCODON-ACE1 EA10 PO; +PENICILLIN V P500 MG PO
[2021-10-12] MEDS ORDERED: SOAANZ20 MG PO (14:41)
--- NOTE | 2021-10-14 08:57 | EKG ---
[facility] [address] [place] [address] Signed Atrial flutter with variable AV block Nonspecific ST abnormality Abnormal ECG When compared with ECG of 07-AUG-2020 20:38, Atrial flutter has replaced Sinus rhythm Vent. rate has increased BY 67 BPM Confirmed by RODRIGO WALL MD ([id number]) on 10/14/2021 8:57:29 AM Electronically Signed By: RODRIGO WALL MD 10/14/21 0857 PATIENT NAME: DENNISE DAIGLESHARYNALONDRA Electrocardiogram DATE OF : 48 PHYSICIAN: RODRIGO WALL MD REPORT #: [id number] REPORT IS CONFIDENTIAL AND NOT TO BE RELEASED WITHOUT AUTHORIZATION
== END 2021-10-12 18:49 | disposition home or self-care (01) ==
LOC: ED 13:29
DX: I48.91 Unspecified atrial fibrillation (principal); I95.9 Hypotension, unspecified; I12.9 Hypertensive chronic kidney disease with stage 1 through stage 4 chronic kidney disease, or unspecified chronic kidney disease; E11.22 Type 2 diabetes mellitus with diabetic chronic kidney disease; N18.30 Chronic kidney disease, stage 3 unspecified; E78.5 Hyperlipidemia, unspecified; G25.81 Restless legs syndrome; F17.200 Nicotine dependence, unspecified, uncomplicated; Z88.2 Allergy status to sulfonamides; Z88.1 Allergy status to other antibiotic agents; Z88.8 Allergy status to other drugs, medicaments and biological substances; Z79.4 Long term (current) use of insulin; Z79.899 Other long term (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; Z79.01 Long term (current) use of anticoagulants
CPT/HCPCS: 36415; 71045; 80053; 85025; 93005; 93010; 96374; 99285-25; A9270